=== PATIENT | male | born 1940 | race Caucasian/White ===

== ENCOUNTER 2021-07-27 00:50 | Inpatient (IN) ==
[2021-07-27 01:23] LABS: Basophils # (auto) 0.01 K/uL (0-0.2); Basophils % (auto) 0.1 %; Eosinophils # (auto) 0.06 K/uL (0-0.5); Eosinophils % (auto) 0.4 %; Hematocrit (blood only) 41.2 % (42-52); Hemoglobin 13.7 g/dL (14.0-18.0); Immature Granulocytes # (auto) 0.06 K/uL (0.00-0.02); Immature Granulocytes % (auto) 0.4 %; Lymphocytes # (auto) 2.35 K/uL (1.2-3.4); Lymphocytes % (auto) 14.2 %; Mean Corpuscular Hemoglobin 29.8 pg (25-34); Mean Corpuscular Hgb Conc 33.3 g/dL (32-36); Mean Corpuscular Volume 89.6 fL (80-100); Mean Platelet Volume 8.8 fL (7.4-10.4); Monocytes # (auto) 1.36 K/uL (0.11-0.59); Monocytes % (auto) 8.2 %; Neutrophils # (auto) 12.74 K/uL (1.4-6.5); Neutrophils % (auto) 76.7 %; Platelet Count 689 K/uL (130-400); RDW Coefficient of Variation 12.5 % (11.5-14.5); RDW Standard Deviation 40.9 fL (36.4-46.3); White Blood Count 16.58 K/uL (4.8-10.8)
[2021-07-27 01:47] LABS: Albumin Globulin Ratio 0.4 (0.9-2); Albumin Level 2.4 gm/dl (3.4-5.0); BUN Creatinine Ratio 26.2 (10-20); Bilirubin,Total 0.4 mg/dl (0.2-1); Calcium 8.8 mg/dl (8.5-10.1); Est GFR (African American) 76.8 ml/min; Est GFR (Non-African American) 66.3 ml/min; Globulin 5.4 gm/dl (2.5-4.0); Total Protein 7.8 gm/dl (6.4-8.2)
[2021-07-27] MEDS ORDERED: SODIUM CHLORIDE 0.9% 500 ML IV ONE (02:43)
[2021-07-27] MEDS ORDERED: LORazepam 0.5 MG/1 ML VIAL IV STA (02:43)
--- NOTE | 2021-07-27 03:20 | Emergency Department Note ---
Impression & Plan Partial obstruction of small intestine Admit to the [facility] ED Provider Note NAME: TERRANCE SOTO AGE: 80 SEX: M ARRIVES VIA: Ambulance INFORMANT: Patient ED PROVIDER(S): Jennifer Dickey DO CHIEF COMPLAINT: Abdominal pain and vomiting PLAN: Disposition: Admit to the [facility] Condition: Stable MEDICAL DECISION MAKING: This is an 80-year-old male patient who presents to the emergency department complaining of abdominal pain and no bowel movement over the past couple of days. The patient has not been taking his stool softeners as he normally does as he is on chronic opioids. CT scan shows evidence of a bowel obstruction. The patient did have a bowel m ovement and feels slightly better but the CT scan of the abdomen/pelvis shows some evidence of bowel edema. The patient will be evaluated by the [facility] group for inpatient care. Triage Nursing notes reviewed and agree with them. Prior medical records reviewed Vital Signs: reviewed and unremarkable Differential diagnosis: Constipation, colitis, diverticulitis, small bowel obstruction ER treatment provided: IV normal saline drip IV Ativan IV Zofran Oral hydrocodone Diagnostics interpreted by me: ECG: Normal sinus rhythm at [address] segment elevation or signs of ischemia. There is no ectopy. This is unchanged from previous EKGs Cardiac Monitoring: Normal sinus rhythm at 72 Laboratory studies: See below Imaging studies: As per stat rad: CT abdomen pelvis without contrast: The solid organs are within normal limits. No obstruction. Diverticulosis. Appendectomy, cholecystectomy. Bilateral calcified pleural plaques are noted with adjacent rounded atelectasis on the right. No fracture. There are surgical changes of interval disc spacers of L2- 3 and L3-L4. There is significant nodularity of the endplates of these levels. This may be degenerative, however cannot exclude osteomyelitis HPI: 80/M arrives for evaluation of abdominal pain and vomiting. The patient presents to the emergency department complaining of abdominal pain and vomiting. The patient describes not having his normal bowel movements over the past couple of weeks. The patient takes chronic opioid pain medication for chronic nerve pain. He states that he has not been taking his usual stool softeners as he has lost track of taking them because he has been busy. The patient has not had a bowel movement over the past couple of days and has recently started vomiting. He tried taking an enema last night and only had a small bowel movement. Patient states that he is here to get his bowels moving the right way. He states that he had to do similar thing a couple of years ago. ROS: See above HPI for pertinent positives & negatives. A total of 10 systems reviewed and were otherwise negative. PAST MEDICAL HISTORY:See Below PAST SURGICAL HISTORY:See Below FAMILY HISTORY:See Below SOCIAL HISTORY:See Below HOME MEDICATIONS:See list ALLERGIES:See list VITALS:See Below PHYSICAL EXAMINATION: HEENT: Head - normocephalic and atraumatic Pupils are equal, round, and reactive to light. Extraocular eye muscles are intact, and sclera are anicteric. Nose - moist nasal mucosa without discharge. Mouth - moist buccal mucosa. Oropharynx is nonerythematous and there is no tonsillar exudate or edema noted. Neck: Supple; no JVD, nuchal rigidity, cervical lymphadenopathy, or auscultated bruits. Heart: Regular rate and rhythm. There is a normal S1 and S2 with no murmurs, clicks, or gallops appreciated. Lungs: Clear to auscultation bilaterally with no wheezes, rales, or rhonchi. Abdomen: Soft, diffusely tender, nondistended, with good bowel sounds. There are no palpable pulsatile masses or hepatosplenomegaly. There is no guarding, rigidity, or rebound noted. Extremities: No evidence of cyanosis, clubbing, or edema. There are easily palpable peripheral pulses. Skin: warm and dry with good turgor and no rashes. ED COURSE: Times/Reassessments: 0220: Patient was evaluated in room A2. A complete history and physical was performed. An IV lock was initiated and labs were drawn as above. A twelve-lead EKG was obtained. An order was placed for continuous cardiac monitoring. The patient was in a normal sinus rhythm at a rate of 72. The patient requested IV Ativan to help him relax and also help his abdomen relax. This was given. He was also given IV Zofran along with IV normal saline solution. The patient was able to rest. He went for CT scan of the abdomen/pelvis. This was initially interpreted by stat rad. They interpreted as no obvious obstruction. However, I remain concerned about the patient's presentation. He was concerned about the possibility of an obstruction as he has had them before. I allowed the patient to stay here in the emergency department until the CT scan could be interpreted by our radiologist in the morning. I kept the patient and the abreast of the situation. The radiologist's interpreted the CT scan is a partial small bowel obstruction. At that time, the patient was kept n.p.o. and I discussed the case with the [facility] hospitalist and they will evaluate the patient for admission to the [facility]. Jennifer Dickey, Past Med/Surg History Medical History Aortic valve sclerosis Barretts esophagus CAD (coronary artery disease) NSTEMI on 06/20/11 (peak troponin of 2.7) Cardiac catheterization 06/21/11: Multivessel disease. mid LAD stenosis 40% followed by a long 70% stenosis at the bifurcation of the third diagonal vessel. The third diagonal vessel also had an ostial 70% lesion. The distal LAD towards the apex was completely occluded but filled from left to left and [id number] collaterals. A large septal branch also had a 60% proximal stenosis. The distal circumflex had a 90% long stenosis; proximally there was a 30% stenosis. The RCA had a proximal 50-60% stenosis. This was the dominant vessel. Medical management was instituted. Chronic back pain Dyslipidemia Esophageal reflux Hypertension Spinal cord stimulator status Spinal stenosis Surgical History H/O exploratory laparotomy 1980s, lysis of adhesions for SBO H/O hernia repair History of hemilaminectomy S/P appendectomy S/P cholecystectomy S/P knee surgery S/P shoulder surgery Family History Mother Coronary heart disease Social History Smoking Status: Never smoker Second Hand Exposure: No; Do You Dip or Chew Tobacco: No; Tobacco Cessation Education Requested by Patient: No Hx Alcohol Use: No Hx Substance Use: No Preferred Language: Pashto Visual Impairment: No Limitations Hearing Ability: Hard of Hearing Migrant Leader Required: No Beliefs That Will Affect Care: None marital status: Current Living Situation: Spouse current occupational status: retired Other Information That Helps Us Care for You: No Feels Safe at Home: Yes and No Is there a partner from a previous relationship who is making you feel unsafe now?: No Any Concerns about Your Family Situation: No Would You Like to Speak to Someone About Your Situation: No Safety Concerns: Feels Safe At This Time Assistive Devices: None Allergies Allergies Allergy/AdvReac Type Severity Reaction Status Date / Time iodine Allergy Intermediate ITCHY. Verified 07/27/21 01:54 SAME REACTION GLUTEN Penicillins Allergy Intermediate RASH Verified 07/27/21 01:54 gluten Allergy Mild rash Verified 07/27/21 01:54 tramadol Allergy Unknown unknown Verified 07/27/21 01:54 codeine AdvReac Mild itching Verified 07/27/21 01:54 Home Meds Home Medications Medication Instructions Recorded Confirmed gabapentin 600 mg tablet 600 mg PO .COMPLEX tab 08/06/19 07/27/21 pantoprazole 40 mg tablet,delayed 40 mg PO DAILY tab 08/06/19 07/27/21 release duloxetine 60 mg capsule,delayed 60 mg PO QAM cap 02/17/20 07/27/21 release duloxetine 30 mg capsule,delayed 30 mg PO QAM 09/04/20 07/27/21 release finasteride 5 mg tablet 5 mg PO DAILY 09/04/20 07/27/21 hydrocodone 10 mg-acetaminophen 1 tab PO Q6H PRN 12/08/20 07/27/21 325 mg tablet acetaminophen 325 mg capsule 325 - 650 mg PO QID PRN 03/16/21 07/27/21 (Tylenol) dapsone 25 mg tablet 25 mg PO DAILY PRN tab 03/16/21 07/27/21 aspirin 81 mg tablet,delayed 81 mg PO DAILY 07/27/21 07/27/21 release cyanocobalamin (vitamin B-12) 100 100 mcg PO DAILY 07/27/21 07/27/21 mcg tablet (Vitamin B-12) diclofenac sodium 1 % topical gel 4 g TOPICAL BID PRN 07/27/21 07/27/21 docusate sodium 100 mg capsule 100 mg PO BID 07/27/21 07/27/21 multivitamin 1 tab PO DAILY 07/27/21 07/27/21 red yeast rice 600 mg tablet 600 mg PO BID 07/27/21 07/27/21 tizanidine 2 mg tablet 2 mg PO BID PRN 07/27/21 07/27/21 Previous Rx's Medication Instructions Recorded nitroglycerin 0.4 mg sublingual 0.4 mg SL Q5M PRN #25 tab 02/18/20 tablet lisinopril 5 mg tablet 5 mg PO DAILY #90 tab 05/29/21 Results & Data (ED) Vital Signs Vital Signs - 24 hr 07/27/21 00:52 07/27/21 00:53 07/27/21 00:57 Temperature 36.6 C Temperature Source Oral Pulse Rate 71 70 Pulse Rate [Right Radial] 66 Pulse Rate from SpO2 Sensor 70 Pulse Rhythm [Right Radial] Regular Pulse Strength [Right Radial] Respiratory Rate 20 23 19 Respiratory Effort / Characteristics Non-Labored Respiratory Depth Normal Normal Respiratory Pattern Regular Blood Pressure 120/85 Blood Pressure [Right Radial Artery] 120/85 Blood Pressure Mean 96 Blood Pressure Mean [Right Radial Artery] 96 Blood Pressure Position [Right Radial Artery] Lying Pulse Oximetry 93 98 98 Oxygen Delivery Method Room Air Room Air Oxygen Flow Rate Sepsis Recent Fever Within 48 Hours No Sepsis New/Unexplained Change in Mental Status N/A Sepsis Action Taken by Nursing No Action Required 07/27/21 01:00 07/27/21 01:30 07/27/21 02:00 Temperature Temperature Source Pulse Rate 74 67 64 Pulse Rate [Right Radial] Pulse Rate from SpO2 Sensor 67 67 65 Pulse Rhythm [Right Radial] Pulse Strength [Right Radial] Respiratory Rate 24 18 20 Respiratory Effort / Characteristics Respiratory Depth Respiratory Pattern Blood Pressure Blood Pressure [Right Radial Artery] Blood Pressure Mean Blood Pressure Mean [Right Radial Artery] Blood Pressure Position [Right Radial Artery] Pulse Oximetry 99 94 86 L Oxygen Delivery Method Oxygen Flow Rate Sepsis Recent Fever Within 48 Hours Sepsis New/Unexplained Change in Mental Status Sepsis Action Taken by Nursing 07/27/21 02:30 07/27/21 03:00 07/27/21 03:57 Temperature Temperature Source Pulse Rate 73 70 Pulse Rate [Right Radial] 67 Pulse Rate from SpO2 Sensor 66 67 Pulse Rhythm [Right Radial] Pulse Strength [Right Radial] Normal Respiratory Rate 17 20 14 Respiratory Effort / Characteristics Non-Labored Respiratory Depth Normal Respiratory Pattern Regular Blood Pressure 120/85 Blood Pressure [Right Radial Artery] 142/70 H Blood Pressure Mean 96 Blood Pressure Mean [Right Radial Artery] 94 Blood Pressure Position [Right Radial Artery] Lying Pulse Oximetry 95 96 96 Oxygen Delivery Method Nasal Cannula Oxygen Flow Rate 2 Sepsis Recent Fever Within 48 Hours Sepsis New/Unexplained Change in Mental Status Sepsis Action Taken by Nursing 07/27/21 05:00 07/27/21 07:00 Temperature Temperature Source Pulse Rate Pulse Rate [Right Radial] 76 76 Pulse Rate from SpO2 Sensor Pulse Rhythm [Right Radial] Regular Pulse Strength [Right Radial] Normal Respiratory Rate 16 18 Respiratory Effort / Characteristics Non-Labored Spontaneous Non-Labored Respiratory Depth Normal Normal Respiratory Pattern Regular Regular Blood Pressure Blood Pressure [Right Radial Artery] 141/85 H 144/109 H Blood Pressure Mean Blood Pressure Mean [Right Radial Artery] 103 120 Blood Pressure Position [Right Radial Artery] Semi-fowlers Lying Pulse Oximetry 96 97 Oxygen Delivery Method Nasal Cannula Room Air Oxygen Flow Rate 2 Sepsis Recent Fever Within 48 Hours Sepsis New/Unexplained Change in Mental Status Sepsis Action Taken by Nursing Laboratory Data Result diagrams: 07/27/21 01:15 07/27/21 03:07 Lab Results 07/27/21 07/27/21 07/27/21 Range/Units 01:15 01:15 01:15 WBC 16.58 H (4.8-10.8) K/uL RBC 4.60 L (4.7-6.1) M/uL Hgb 13.7 L (14.0-18.0) g/dL Hct 41.2 L (42-52) % MCV 89.6 (80-100) fL MCH 29.8 (25-34) pg MCHC 33.3 (32-36) g/dL RDW Std Deviation 40.9 (36.4-46.3) fL RDW Coeff of Geraldo 12.5 (11.5-14.5) % Plt Count 689 H (130-400) K/uL MPV 8.8 (7.4-10.4) fL Immature Gran % (Auto) 0.4 % Neut % (Auto) 76.7 % Lymph % (Auto) 14.2 % Calvert % (Auto) 8.2 % Eos % (Auto) 0.4 % Baso % (Auto) 0.1 % Neut # (Auto) 12.74 H (1.4-6.5) K/uL Lymph # (Auto) 2.35 (1.2-3.4) K/uL Calvert # (Auto) 1.36 H (0.11-0.59) K/uL Eos # (Auto) 0.06 (0-0.5) K/uL Baso # (Auto) 0.01 (0-0.2) K/uL Immature Gran # (Auto) 0.06 H (0.00-0.02) K/uL Sodium 136 (136-145) mmol/L Potassium (3.5-5.1) mmol/L Chloride 99 (98-107) mmol/L Carbon Dioxide 32 (21-32) mmol/L Anion Gap 5.0 (3-11) BUN 28 H (7-18) mg/dl Creatinine 1.05 (0.6-1.4) mg/dl Est Cr Clr Drug Dosing 57.0 ml/min Est GFR ( Amer) 76.8 ml/min Est GFR (Non-Af Amer) 66.3 ml/min BUN/Creatinine Ratio 26.2 H (10-20) Glucose 200 H (70-99) mg/dl Estimat Average Glucose 180 mg/dl Hemoglobin A1c 7.9 H (4.5-5.6) % Calcium 8.8 (8.5-10.1) mg/dl Total Bilirubin 0.4 (0.2-1) mg/dl AST (15-37) U/L ALT 30 (12-78) U/L Alkaline Phosphatase 97 (45-117) U/L Total Protein 7.8 (6.4-8.2) gm/dl Albumin 2.4 L (3.4-5.0) gm/dl Globulin 5.4 H (2.5-4.0) gm/dl Albumin/Globulin Ratio 0.4 L (0.9-2) Lipase 70 L (73-393) U/L 07/27/21 Range/Units 03:07 WBC (4.8-10.8) K/uL RBC (4.7-6.1) M/uL Hgb (14.0-18.0) g/dL Hct (42-52) % MCV (80-100) fL MCH (25-34) pg MCHC (32-36) g/dL RDW Std Deviation (36.4-46.3) fL RDW Coeff of Geraldo (11.5-14.5) % Plt Count (130-400) K/uL MPV (7.4-10.4) fL Immature Gran % (Auto) % Neut % (Auto) % Lymph % (Auto) % Calvert % (Auto) % Eos % (Auto) % Baso % (Auto) % Neut # (Auto) (1.4-6.5) K/uL Lymph # (Auto) (1.2-3.4) K/uL Calvert # (Auto) (0.11-0.59) K/uL Eos # (Auto) (0-0.5) K/uL Baso # (Auto) (0-0.2) K/uL Immature Gran # (Auto) (0.00-0.02) K/uL Sodium (136-145) mmol/L Potassium 3.7 (3.5-5.1) mmol/L Chloride (98-107) mmol/L Carbon Dioxide (21-32) mmol/L Anion Gap (3-11) BUN (7-18) mg/dl Creatinine (0.6-1.4) mg/dl Est Cr Clr Drug Dosing ml/min Est GFR ( Amer) ml/min Est GFR (Non-Af Amer) ml/min BUN/Creatinine Ratio (10-20) Glucose (70-99) mg/dl Estimat Average Glucose mg/dl Hemoglobin A1c (4.5-5.6) % Calcium (8.5-10.1) mg/dl Total Bilirubin (0.2-1) mg/dl AST 12 L (15-37) U/L ALT (12-78) U/L Alkaline Phosphatase (45-117) U/L Total Protein (6.4-8.2) gm/dl Albumin (3.4-5.0) gm/dl Globulin (2.5-4.0) gm/dl Albumin/Globulin Ratio (0.9-2) Lipase (73-393) U/L Administered Medications Hydrocodone Bitart/Acetaminophen (Hydrocodone/Acetaminophen 10/325 Tab) 1 tab PO Q6H PRN PRN Reason: Pain Stop: 08/10/21 15:15 Last Admin: 07/27/21 17:51 Dose: 1 tab Documented by: [id number] Aspirin (Aspirin 81 Mg Ectab) 81 mg PO DAILY [facility] Stop: 08/27/21 08:59 Last Admin: 07/28/21 08:40 Dose: 81 mg Documented by: [id number] Duloxetine HCl (Duloxetine Hcl 60 Mg Cap) 60 mg PO QDL [facility] Stop: 08/26/21 14:59 Last Admin: 07/27/21 15:29 Dose: 60 mg Documented by: [id number] Duloxetine HCl (Duloxetine Hcl 30 Mg Cap) 30 mg PO QAM [facility] Stop: 08/27/21 08:59 Last Admin: 07/28/21 08:41 Dose: 30 mg Documented by: [id number] Finasteride (Finasteride 5 Mg Tab) 5 mg PO DAILY [facility] Stop: 08/27/21 08:59 Last Admin: 07/28/21 08:40 Dose: 5 mg Documented by: [id number] Gabapentin (Gabapentin 600 Mg Tab) 600 mg PO BID [facility] Stop: 08/26/21 20:59 Last Admin: 07/27/21 22:09 Dose: 600 mg Documented by: [id number] Gabapentin (Gabapentin 300 Mg Cap) 900 mg PO DAILY@1400 [facility] Stop: 08/26/21 14:59 Last Admin: 07/27/21 15:30 Dose: 900 mg Documented by: [id number] Ciprofloxacin (Cipro / D5w) 400 mg in 200 mls @ 100 mls/hr IV Q12H [facility]; Protocol Stop: 08/06/21 12:44 Last Infusion: 07/28/21 03:21 Dose: 0 mls/hr Documented by: [id number] Admin: 07/28/21 01:21 Dose: 100 mls/hr Documented by: [id number] Admin: 07/27/21 15:53 Dose: Not Given Documented by: [id number] Metronidazole (Flagyl) 500 mg in 100 mls @ 100 mls/hr IV Q8H [facility] Stop: 08/06/21 12:44 Last Infusion: 07/28/21 05:30 Dose: 0 mls/hr Documented by: [id number] Admin: 07/28/21 04:30 Dose: 100 mls/hr Documented by: [id number] Infusion: 07/27/21 23:09 Dose: 0 mls/hr Documented by: [id number] Admin: 07/27/21 22:09 Dose: 100 mls/hr Documented by: [id number] Admin: 07/27/21 15:53 Dose: Not Given Documented by: [id number] Potassium Chloride/Sodium Chloride (Normal Saline W/20 Meq Kcl) 20 meq in 1,000 mls @ 60 mls/hr IV .[id number] [facility] Stop: 08/26/21 19:14 Last Admin: 07/27/21 20:08 Dose: 60 mls/hr Documented by: [id number] Insulin Aspart (Insulin Aspart 100 Units/Ml 3 Ml Pen) 0 units SC Q6 [facility] Stop: 08/26/21 14:44 Last Admin: 07/28/21 06:06 Dose: Not Given Documented by: [id number] Cosigned by: [id number] Admin: 07/28/21 00:01 Dose: Not Given Documented by: [id number] Cosigned by: [id number] Admin: 07/27/21 18:00 Dose: Not Given Documented by: [id number] Pantoprazole Sodium (Pantoprazole 40 Mg Tab) 40 mg PO DAILY [facility] Stop: 08/27/21 08:59 Last Admin: 07/28/21 08:40 Dose: 40 mg Documented by: [id number] Discontinued Medications Hydrocodone Bitart/Acetaminophen (Hydrocodone/Acetaminophen 10/325 Tab) 1 tab PO NOW STA Stop: 07/27/21 06:25 Last Admin: 07/27/21 06:45 Dose: 1 tab Documented by: [id number] Sodium Chloride (Nss) 500 mls @ 999 mls/hr IV .Q31M ONE Stop: 07/27/21 03:13 Last Infusion: 07/27/21 04:00 Dose: 500 mls/hr Documented by: [id number] Admin: 07/27/21 03:03 Dose: 999 mls/hr Documented by: [id number] Sodium Chloride (Nss) 500 mls @ 125 mls/hr IV .Q4H [facility] Stop: 08/26/21 02:44 Last Admin: 07/27/21 11:57 Dose: Not Given Documented by: [id number] Admin: 07/27/21 08:52 Dose: Not Given Documented by: [id number] Infusion: 07/27/21 08:51 Dose: 0 mls/hr Documented by: [id number] Admin: 07/27/21 04:50 Dose: 125 mls/hr Documented by: [id number] Lorazepam (Ativan) 0.5 mg in 1 mls @ 1 mls/min IV NOW STA Stop: 07/27/21 02:44 Last Admin: 07/27/21 03:01 Dose: 1 mls/min Documented by: [id number] Sodium Chloride (Nss) 500 mls @ 125 mls/hr IV .Q4H [facility] Stop: 08/26/21 08:44 Last Admin: 07/27/21 15:05 Dose: Not Given Documented by: [id number] Infusion: 07/27/21 13:23 Dose: 0 mls/hr Documented by: [id number] Admin: 07/27/21 08:52 Dose: 125 mls/hr Documented by: [id number] Insulin Aspart (Insulin Aspart 100 Units/Ml 3 Ml Pen) 0 units SC ACHS [facility] Stop: 08/26/21 14:44 Last Admin: 07/27/21 16:09 Dose: Not Given Documented by: [id number] Ondansetron HCl (Ondansetron Inj 2 Mg/Ml 2 Ml Vial) 4 mg IV NOW STA Stop: 07/27/21 06:25 Last Admin: 07/27/21 06:45 Dose: 4 mg Documented by: [id number] Ondansetron HCl (Ondansetron Inj 2 Mg/Ml 2 Ml Vial) 4 mg IV NOW STA Stop: 07/27/21 12:48 Last Admin: 07/27/21 13:02 Dose: 4 mg Documented by: [id number] Ondansetron HCl (Ondansetron Inj 2 Mg/Ml 2 Ml Vial) 4 mg IV NOW STA Stop: 07/27/21 12:57 Last Admin: 07/27/21 13:02 Dose: Not Given Documented by: [id number] Discharge Plan Visit Data Chief Complaint: GI Assessment Stated Complaint: Abdominal Pain, Constipation ED Provider: Jennifer Dickey Discharge Problem: Partial obstruction of small intestine Patient Disposition: Admitted As Inpatient Discharge Instructions Interventions: ED Discharge Assessment Last Done: 07/27/21 13:15
[2021-07-27 03:37] LABS: Potassium 3.7 mmol/L (3.5-5.1)
[2021-07-27] MEDS: SODIUM CHLORIDE 0.9% 500 ML IV SCH ×5 (04:50→15:05)
[2021-07-27] MEDS ORDERED: ONDANSETRON INJ 2 MG/ML 2 ML VIAL IV STA ×3 (06:24→12:56)
[2021-07-27] MEDS ORDERED: HYDROcodone/ACETAMINOPHEN 10/325 TAB PO STA (06:24)
--- NOTE | 2021-07-27 08:24 | CT Scan Report ---
ABDOMEN AND PELVIS CT WITHOUT CONTRAST CT DOSE: 531.33 mGy.cm HISTORY: Acute generalized abdominal pain eval for partial sbo TECHNIQUE: Multiaxial CT images of the abdomen and pelvis were performed without contrast. A dose lo wering technique was utilized adhering to the principles of ALARA. COMPARISON STUDY: CT abdomen and pelvis 02/23/2013, MRI lumbar spine 05/25/2016. FINDINGS: Extensive coronary artery calcifications. Bibasilar calcified pleural plaques with round atelectasis of the right lower lobe redemonstrated. Subpleural reticulation of the lung bases compatible with fib rosis. No pneumatosis or pneumoperitoneum. The unenhanced spleen, moderately atrophic pancreas and adrenal glands are unremarkable. Cholecystect tammy. Hepatic steatosis. No evidence of cirrhosis. Mild nonspecific bilateral perinephric stranding. 1 .4 cm cyst of the superior pole left kidney. There are a few renal sinus cysts of the left kidney als o noted. No urolith or obstructive uropathy. Prostate is upper limits of normal in size. Unremarkable urinary bladder. Atherosclerosis of the aorta without aneurysm. No adenopathy. Mild nonspecific distal esophageal wall thickening with trace periesophageal fluid. Trace free fluid within the pelvis. Appendectomy. Prior ventral abdominal wall herniorrhaphy. Proximal dilated loops o f small bowel measure up to 4.2 cm transversely. A few loops of stool-filled bowel are also noted. Th ere is a focal transition point within the right paracentral anterior midabdomen on image 210 series 3 with decompressed small bowel seen distal to this area. Trace interloop edema. Several loops of sma ll bowel are noted along the anterior abdominal cavity which may be secondary to small bowel adhesion s. No abscess or perforation. Mild colonic diverticulosis. Unremarkable soft tissues. No acute fracture. A spinal stimulator device is noted with distal leads p resent within the central canal. The T9-T10. Discectomy changes at L2-L3 and L3-L4. Associated endpla te irregularity is noted at these levels which is new from the 2016 comparison. IMPRESSION: 1. Findings suggestive of at least a partial small bowel obstruction with transition point within the right paracentral anterior mid abdomen, presumably secondary to small bowel adhesions. Minimal assoc iated interloop edema with trace free fluid. This finding was called/faxed to the emergency departmen t at time of dictation. 2. No pneumatosis or pneumoperitoneum. 3. Prior ventral abdominal wall herniorrhaphy changes. 4. Mild colonic diverticulosis. 5. Hepatic steatosis. 6. 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 7. Discectomy changes at L2-L3 and L3-L4 are noted with associated endplate irregularity, likely on a degenerative basis. Discitis/osteomyelitis considered less likely. 8. Additional findings as above. ACT 112: Negative or not required by law. The above report was generated using voice recognition software. It may contain grammatical, syntax o r spelling errors. Electronically signed by: Marck Davis M.D. 07/27/2021 8:23 AM
[2021-07-27 08:44] LABS: Appearance Urine Clear (Clear); Bacteria Urine Automated Negative (Negative); Bilirubin Urine Negative (Negative); Blood Urine Negative (Negative); Color Urine Dark Yellow; Epithelial Cell Urine Auto 20-30 /lpf (0-5); Glucose Urine UA Negative (Negative); Ketones Urine Trace (Negative); Leukocyte Esterase Urine Negative (Negative); Nitrite Urine Negative (Negative); Protein Urine 1+ (Negative); RBC Urine Automated 0-4 /hpf (0-4); Specific Gravity Urine 1.021 (1.000-1.030); Urobilinogen Urine Negative (Negative); pH Urine 8.5 (4.5-7.5)
--- NOTE | 2021-07-27 10:20 | History & Physical Report ---
Date of Service July 27, 2021 Assessment & Plan (1) SBO (small bowel obstruction): Plan: -Admit to [facility] -Patient presenting from home with reports of abdominal pain and distention, nausea and vomiting -CT ABD/pelvis shows Findings suggestive of at least a partial small bowel obstruction with transition point within the right paracentral anterior mid abdomen -Likely due to previous abdominal surgeries/adhesions -Patient currently comfortable, abdominal pain controlled and no active vomiting. Hold on NG tube for now however low threshold if symptoms worsen -Lactate WNL at 1.2 -General surgery consult, case discussed with Domonique Sampson PA-C (2) Leukocytosis: (3) Thrombocytosis: Plan: -WBC 16 K, platelets 60 9K -Likely reactive to SBO, no obvious signs of infection at this time -Trend CBC (4) Hyperglycemia: Plan: -Glucose 200 on labs -Hgb A1c 6.0 03/2019 -Start conservative NovoLog protocol, check A1c (5) CAD (coronary artery disease): Plan: -Appears stable, no reports of chest pain -History of NSTEMI in 2010, cardiac cath demonstrated multivessel disease however not amendable to intervention -Continue ASA and MALDONADO inhibitor -History of statin and beta-milagro intolerance (6) Chronic back pain: Plan: -On chronic hydrocodone/acetaminophen, receives steroid injections, follows with [facility] pain management -Encourage bowel regimen while on chronic narcotics (7) Barretts esophagus: Plan: -Continue PPI (8) DVT prophylaxis: Plan: -SCDs for now Admission and Anticipated Discharge Date Admission Date: Attending Addendum: care coordinated with RANDAL jessica please refer to her notes for full details, I agree with her notes patient seen and examined, records reviewed by myself as well on exam, patient seen resting in bed, comfortable, not in distress, very pleasant States he feels improved compared to admission No abdominal pain on exam No nausea vomiting, fevers or chills, cough, shortness of breath, problems with urination No flatus or bowel movement yet no other symptoms VS noted and reviewed oriented x 3 , not in distress, speaks in sentences with no effort nor accessory muscle use normal rate, regular rhythm, no murmurs clear breath sounds bilaterally Hypoactive bowel sounds, non distended, soft, nontender no bipedal edema, erythema, warmth no neuro deficits WBC 16.5 Hg 13.7 Crea [address] abdomen and pelvis: Findings suggestive of at least a partial small bowel obstruction with transition point within the right paracentral anterior mid abdomen, presumably secondary to small bowel adhesions. Minimal associated interloop edema with trace free fluid. This finding was called/faxed to the emergency department at time of dictation. Partial small bowel obstruction, possibly secondary to adhesions Conservative management for now N.p.o., IV fluids Cipro and Flagyl for leukocytosis History of CAD No cardiac symptoms Continue aspirin other diagnoses and plan of care as per RANDAL jessica's notes Manfred Guevara MD History of Present Illness Chief Complaint: Abdominal pain, vomiting Primary Care Provider: Manav De La Vega DO 80-year-old male with PMH CAD, chronic back pain, HTN, Nash's esophagus, BPH, history of multiple abdominal surgeries, and other problems listed below who presents the ED for evaluation of abdominal pain and vomiting. Patient reports having intermittent nausea and abdominal pain for the past couple weeks. Patient notes that he is on chronic hydrocodone for management of chronic back pain and typically takes a stool softener. Patient reports that he has been very busy working on building a cabin and has gotten away from taking his stool softeners. Last evening, patient reports he developed worsening abdominal distention, mid abdominal pain, vomiting. Patient continued to not feel well and then presented to the ED for further evaluation. Patient reports having a small bowel movement yesterday and a normal bowel movement this morning. Denies hematemesis, coffee-ground emesis, bright red bleeding per rectum, dark tarry stools. Patient reports he otherwise has been feeling well recently. No chest pain or shortness of breath. Denies lightheadedness, dizziness, diaphoresis, syncopal events. No fevers or chills. Denies urinary symptoms. In the ED, CT ABD/pelvis shows signs of partial small bowel obstruction. Labs show WBC 16 K, platelets 689K, glucose 200, lactate 1.2. Patient is hemodynamically stable. He was given p.o. hydrocodone/acetaminophen, IV lorazepam 0.5 mg, IV Zofran, IVF. Allergies Allergy/AdvReac Type Severity Reaction Status Date / Time iodine Allergy Intermediate ITCHY. Verified 07/27/21 01:54 SAME REACTION GLUTEN Penicillins Allergy Intermediate RASH Verified 07/27/21 01:54 gluten Allergy Mild rash Verified 07/27/21 01:54 tramadol Allergy Unknown unknown Verified 07/27/21 01:54 codeine AdvReac Mild itching Verified 07/27/21 01:54 Home Medications Medication Instructions Recorded Confirmed Type gabapentin 600 mg tablet 600 mg PO .COMPLEX tab 08/06/19 07/27/21 History pantoprazole 40 mg tablet,delayed 40 mg PO DAILY tab 08/06/19 07/27/21 History release duloxetine 60 mg capsule,delayed 60 mg PO QAM cap 02/17/20 07/27/21 History release nitroglycerin 0.4 mg sublingual 0.4 mg SL Q5M PRN #25 tab 02/18/20 07/27/21 Rx tablet duloxetine 30 mg capsule,delayed 30 mg PO QAM 09/04/20 07/27/21 History release finasteride 5 mg tablet 5 mg PO DAILY 09/04/20 07/27/21 History hydrocodone 10 mg-acetaminophen 1 tab PO Q6H PRN 12/08/20 07/27/21 History 325 mg tablet acetaminophen 325 mg capsule 325 - 650 mg PO QID PRN 03/16/21 07/27/21 History (Tylenol) dapsone 25 mg tablet 25 mg PO DAILY PRN tab 03/16/21 07/27/21 History lisinopril 5 mg tablet 5 mg PO DAILY #90 tab 05/29/21 07/27/21 Rx aspirin 81 mg tablet,delayed 81 mg PO DAILY 07/27/21 07/27/21 History release cyanocobalamin (vitamin B-12) 100 100 mcg PO DAILY 07/27/21 07/27/21 History mcg tablet (Vitamin B-12) diclofenac sodium 1 % topical gel 4 g TOPICAL BID PRN 07/27/21 07/27/21 History docusate sodium 100 mg capsule 100 mg PO BID 07/27/21 07/27/21 History multivitamin 1 tab PO DAILY 07/27/21 07/27/21 History red yeast rice 600 mg tablet 600 mg PO BID 07/27/21 07/27/21 History tizanidine 2 mg tablet 2 mg PO BID PRN 07/27/21 07/27/21 History Past Med/Surg History Medical History Aortic valve sclerosis Barretts esophagus CAD (coronary artery disease) NSTEMI on 06/20/11 (peak troponin of 2.7) Cardiac catheterization 06/21/11: Multivessel disease. mid LAD stenosis 40% followed by a long 70% stenosis at the bifurcation of the third diagonal vessel. The third diagonal vessel also had an ostial 70% lesion. The distal LAD towards the apex was completely occluded but filled from left to left and [id number] collaterals. A large septal branch also had a 60% proximal stenosis. The distal circumflex had a 90% long stenosis; proximally there was a 30% stenosis. The RCA had a proximal 50-60% stenosis. This was the dominant vessel. Medical management was instituted. Chronic back pain Dyslipidemia Esophageal reflux Hypertension Spinal cord stimulator status Spinal stenosis Surgical History H/O exploratory laparotomy , lysis of adhesions for SBO H/O hernia repair History of hemilaminectomy S/P appendectomy S/P cholecystectomy S/P knee surgery S/P shoulder surgery Family History Mother Coronary heart disease Social History Smoking Status: Never smoker Second Hand Exposure: No; Do You Dip or Chew Tobacco: No; Tobacco Cessation Education Requested by Patient: No Hx Alcohol Use: No Hx Substance Use: No Preferred Language: Amharic Visual Impairment: No Limitations Hearing Ability: Hard of Hearing Skydiving Instructor Required: No Beliefs That Will Affect Care: None marital status: Current Living Situation: Spouse current occupational status: retired Other Information That Helps Us Care for You: No Feels Safe at Home: Yes and No Is there a partner from a previous relationship who is making you feel unsafe now?: No Any Concerns about Your Family Situation: No Would You Like to Speak to Someone About Your Situation: No Safety Concerns: Feels Safe At This Time Assistive Devices: Glasses Review of Systems Review of Systems: ROS per HPI, all other systems reviewed and negative Physical Exam Constitutional: WD/WN, vitals as above Eyes: PERRL, conjunctivae normal, anicteric sclerae ENMT: Ears: no external ear abnormality Nose: no external nose abnormality Mouth: + dry oral mucous membranes Respiratory: normal respiratory effort, lungs clear to auscultation Cardiovascular: Rate/Rhythm: regular rate and regular rhythm Vessels: normal peripheral pulses Extremities: no edema Gastrointestinal (Abdomen): normal bowel sounds, soft, nontender, no hepatosplenomegaly Several previous incisional scars noted Musculoskeletal: no cyanosis or clubbing, extremities motor strength 5/5 Skin: no rashes, warm and dry Neurologic: PERRL, EOMI, accommodation nl, no face palsy, no dysarthria Psychiatric: A+Ox3, euthymic affect Results & Data Results & Data ([facility]) Vital Signs (Past 12 Hours) Vital Signs Temp Pulse Pulse Resp BP BP Pulse Ox 07/27/21 09:00 75 16 133/88 94 07/27/21 07:00 76 18 144/109 H 97 07/27/21 05:00 76 16 141/85 H 96 07/27/21 03:57 67 14 142/70 H 96 07/27/21 03:00 70 20 120/85 96 07/27/21 02:30 73 17 95 07/27/21 02:00 64 20 86 L 07/27/21 01:30 67 18 94 07/27/21 01:00 74 24 99 07/27/21 00:57 70 19 98 07/27/21 00:53 36.6 C 71 23 120/85 98 07/27/21 00:52 66 20 120/85 93 Laboratory Results Short CBC 07/27/21 Range/Units 01:15 WBC 16.58 H (4.8-10.8) K/uL Hgb 13.7 L (14.0-18.0) g/dL Hct 41.2 L (42-52) % Plt Count 689 H (130-400) K/uL BMP 07/27/21 07/27/21 01:15 03:07 Sodium 136 Potassium 3.7 Chloride 99 Carbon Dioxide 32 BUN 28 H Creatinine 1.05 Glucose 200 H Calcium 8.8 Liver Function 07/27/21 07/27/21 Range/Units 01:15 03:07 Total Bilirubin 0.4 (0.2-1) mg/dl AST 12 L (15-37) U/L ALT 30 (12-78) U/L Alkaline Phosphatase 97 (45-117) U/L Albumin 2.4 L (3.4-5.0) gm/dl Urine 07/27/21 Range/Units Unknown Urine Color Dark Yellow Urine Appearance Clear (Clear) Urine pH 8.5 H (4.5-7.5) Ur Specific [place] 1.021 (1.000-1.030) Urine Protein 1+ H (Negative) Urine Glucose (UA) Negative (Negative) Diagnostic Findings Abdomen/Pelvis CT 07/27/21 02:[address] WITHOUT CONTRAST CT DOSE: 531.33 mGy.cm HISTORY: Acute generalized abdominal pain eval for partial sbo TECHNIQUE: Multiaxial CT images of the abdomen and pelvis were performed without contrast. A dose lowering technique was utilized adhering to the principles of ALARA. COMPARISON STUDY: CT abdomen and pelvis 02/23/2013, MRI lumbar spine 05/25/2016. FINDINGS: Extensive coronary artery calcifications. Bibasilar calcified pleural plaques with round atelectasis of the right lower lobe redemonstrated. Subpleural reticulation of the lung bases compatible with fibrosis. No pneumatosis or pneumoperitoneum. The unenhanced spleen, moderately atrophic pancreas and adrenal glands are unremarkable. Cholecystectomy. Hepatic steatosis. No evidence of cirrhosis. Mild nonspecific bilateral perinephric stranding. 1.4 cm cyst of the superior pole left kidney. There are a few renal sinus cysts of the left kidney also noted. No urolith or obstructive uropathy. Prostate is upper limits of normal in size. Unremarkable urinary bladder. Atherosclerosis of the aorta without aneurysm. No adenopathy. Mild nonspecific distal esophageal wall thickening with trace periesophageal fluid. Trace free fluid within the pelvis. Appendectomy. Prior ventral abdominal wall herniorrhaphy. Proximal dilated loops of small bowel measure up to 4.2 cm transversely. A few loops of stool-filled bowel are also noted. There is a focal transition point within the right paracentral anterior midabdomen on image 210 series 3 with decompressed small bowel seen distal to this area. Trace interloop edema. Several loops of small bowel are noted along the anterior abdominal cavity which may be secondary to small bowel adhesions. No abscess or perforation. Mild colonic diverticulosis. Unremarkable soft tissues. No acute fracture. A spinal stimulator device is noted with distal leads present within the central canal. The T9-T10. Discectomy changes at L2-L3 and L3-L4. Associated endplate irregularity is noted at these levels which is new from the 2016 comparison. IMPRESSION: 1. Findings suggestive of at least a partial small bowel obstruction with transition point within the right paracentral anterior mid abdomen, presumably secondary to small bowel adhesions. Minimal associated interloop edema with trace free fluid. This finding was called/faxed to the emergency department at time of dictation. 2. No pneumatosis or pneumoperitoneum. 3. Prior ventral abdominal wall herniorrhaphy changes. 4. Mild colonic diverticulosis. 5. Hepatic steatosis. 6. 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 7. Discectomy changes at L2-L3 and L3-L4 are noted with associated endplate irregularity, likely on a degenerative basis. Discitis/osteomyelitis considered less likely. 8. Additional findings as above. ACT 112: Negative or not required by law. The above report was generated using voice recognition software. It may contain grammatical, syntax or spelling errors. Electronically signed by: Marck Davis M.D. 07/27/2021 8:23 AM Code Status & VTE Plan Code Status Patient is a full code as per my discussion with him. VTE Prophylaxis Plan VTE Prophylaxis will be ordered: Yes
[2021-07-27 11:00] LABS: Estimated Average Glucose 180 mg/dl; Hemoglobin A1C 7.9 % (4.5-5.6)
--- NOTE | 2021-07-27 11:21 | Surgery Consultation ---
Date of Consultation July 27, 2021 Assessment & Plan (1) SBO (small bowel obstruction): pt is a 80 year-old male who presents to ER with one day history abdominal pain, passed BM this morning, no abdominal pain now, IMP: SBO Plan, no emergent surgery indication now, I agree with conservative treatment, NPO, IV fluid, IV antibiotic for high WBC, cipro + flagyl, Hold NG tube insertion now, repeat KUB and labs in morning, will F/U, History of Present Illness Reason for Consultation: SBO Requesting Physician: manav Cox Attending Physician: manav Cox History of Present Illness History of Present Illness Chief Complaint: Abdominal pain, vomiting Primary Care Provider: Manav De La Vega DO 80-year-old male with PMH CAD, chronic back pain, HTN, Nash's esophagus, BPH, history of multiple abdominal surgeries, and other problems listed below who presents the ED for evaluation of abdominal pain and vomiting. Patient reports having intermittent nausea and abdominal pain for the past couple weeks. Patient notes that he is on chronic hydrocodone for management of chronic back pain and typically takes a stool softener. Patient reports that he has been very busy working on building a cabin and has gotten away from taking his stool softeners. Last evening, patient reports he developed worsening abdominal distention, mid abdominal pain, vomiting. Patient continued to not feel well and then presented to the ED for further evaluation. Patient reports having a small bowel movement yesterday and a normal bowel movement this morning. Denies hematemesis, coffee-ground emesis, bright red bleeding per rectum, dark tarry stools. Patient reports he otherwise has been feeling well recently. No chest pain or shortness of breath. Denies lightheadedness, dizziness, diaphoresis, syncopal events. No fevers or chills. Denies urinary symptoms. In the ED, CT ABD/pelvis shows signs of partial small bowel obstruction. Labs show WBC 16 K, platelets 689K, glucose 200, lactate 1.2. Patient is hemodynamically stable. He was given p.o. hydrocodone/acetaminophen, IV lorazepam 0.5 mg, IV Zofran, IVF. I ( Zac Murphy MD, FACS ) got a call for consult SBO, I reviewed pt's H/P, labs, CT scan with pt, pt just passed BM this morning, pt do not have abdominal pain now, Allergies Allergy/AdvReac Type Severity Reaction Status Date / Time iodine Allergy Intermediate ITCHY. Verified 07/27/21 01:54 SAME REACTION GLUTEN Penicillins Allergy Intermediate RASH Verified 07/27/21 01:54 gluten Allergy Mild rash Verified 07/27/21 01:54 tramadol Allergy Unknown unknown Verified 07/27/21 01:54 codeine AdvReac Mild itching Verified 07/27/21 01:54 Home Medications Medication Instructions Recorded Confirmed Type gabapentin 600 mg tablet 600 mg PO .COMPLEX tab 08/06/19 07/27/21 Hi story pantoprazole 40 mg tablet,delayed 40 mg PO DAILY tab 08/06/19 History release duloxetine 60 mg capsule,delayed 60 mg PO QAM cap 02/17/20 1 History release nitroglycerin 0.4 mg sublingual 0.4 mg SL Q5M PRN #25 tab 02/18/20 Rx tablet duloxetine 30 mg capsule,delayed 30 mg PO QAM 09/04/20 1 History release finasteride 5 mg tablet 5 mg PO DAILY 09/04/20 07/27/21 History hydrocodone 10 mg-acetaminophen 1 tab PO Q6H PRN 12/08/20 07/27/21 History 325 mg tablet acetaminophen 325 mg capsule 325 - 650 mg PO QID PRN 03/16/21 1 History (Tylenol) dapsone 25 mg tablet 25 mg PO DAILY PRN tab 03/16/21 07/27/21 Histor y lisinopril 5 mg tablet 5 mg PO DAILY #90 tab 05/29/21 07/27/21 Rx aspirin 81 mg tablet,delayed 81 mg PO DAILY 07/27/21 07/27/21 Hi story release cyanocobalamin (vitamin B-12) 100 100 mcg PO DAILY 07/27/21 History mcg tablet (Vitamin B-12) diclofenac sodium 1 % topical gel 4 g TOPICAL BID PRN 07/27/21 History docusate sodium 100 mg capsule 100 mg PO BID 07/27/21 07/27/21 History multivitamin 1 tab PO DAILY 07/27/21 07/27/21 History red yeast rice 600 mg tablet 600 mg PO BID 07/27/21 07/27/21 Hi story tizanidine 2 mg tablet 2 mg PO BID PRN 07/27/21 07/27/21 History Past Med/Surg History Medical History Aortic valve sclerosis Barretts esophagus CAD (coronary artery disease) NSTEMI on 06/20/11 (peak troponin of 2.7) Cardiac catheterization 06/21/11: Multivessel disease. mid LAD stenosis 40% followed by a long 70% stenosis at the bifurcation of the third diagonal vessel. The third diagonal vessel also had an ostial 70% lesion. The distal LAD towards the apex was completely occluded but filled from left to left and [id number] collaterals. A large septal branch also had a 60% proximal stenosis. The distal circumflex had a 90% long stenosis; proximally there was a 30% stenosis. The RCA had a proximal 50-60% stenosis. This was the dominant vessel. Medical management was instituted.Chronic back pain Dyslipidemia Esophageal reflux Hypertension Spinal cord stimulator status Spinal stenosis Surgical History H/O exploratory laparotomy 1980s, lysis of adhesions for SBOH/O hernia repair History of hemilaminectomy S/P appendectomy S/P cholecystectomy S/P knee surgery S/P shoulder surgery Family History Mother Coronary heart disease Social History Smoking Status: Never smoker Hx Alcohol Use: No Hx Substance Use: No Preferred Language: German Visual Impairment: No Limitations Hearing Ability: Hard of Hearing Beliefs That Will Affect Care: None marital status: Current Living Situation: Spouse current occupational status: retired Feels Safe at Home: Yes Review of Systems Review of Systems: ROS per HPI, all other systems reviewed and negative Results & Data Results & Data ([facility]) Vital Signs (Past 12 Hours) Vital Signs Temp Pulse Pulse Resp BP BP Pulse Ox 07/27/21 09:00 75 16 133/88 94 07/27/21 07:00 76 18 144/109 H 97 07/27/21 05:00 76 16 141/85 H 96 07/27/21 03:57 67 14 142/70 H 96 07/27/21 03:00 70 20 120/85 96 07/27/21 02:30 73 17 95 07/27/21 02:00 64 20 86 L 07/27/21 01:30 67 18 94 07/27/21 01:00 74 24 99 07/27/21 00:57 70 19 98 07/27/21 00:53 36.6 C 71 23 120/85 98 07/27/21 00:52 66 20 120/85 93 Laboratory Results Short CBC 07/27/21 Range/Units 01:15 WBC 16.58 H (4.8-10.8) K/uL Hgb 13.7 L (14.0-18.0) g/dL Hct 41.2 L (42-52) % Plt Count 689 H (130-400) K/uL BMP 07/27/21 07/27/21 01:15 03:07 Sodium 136 Potassium 3.7 Chloride 99 Carbon Dioxide 32 BUN 28 H Creatinine 1.05 Glucose 200 H Calcium 8.8 Liver Function 07/27/21 07/27/21 Range/Units 01:15 03:07 Total Bilirubin 0.4 (0.2-1) mg/dl AST 12 LC (15-37) U/L ALT 30 (12-78) U/L Alkaline Phosphatase 97 (45-117) U/L Albumin 2.4 L (3.4-5.0) gm/dl Urine 07/27/21 Range/Units Unknown Urine Color Dark Yellow Urine Appearance Clear (Clear) Urine pH 8.5 H (4.5-7.5) Ur Specific [place] 1.021 (1.000-1.030) Urine Protein 1+ H (Negative) Urine Glucose (UA) Negative (Negative) Diagnostic Findings Abdomen/Pelvis CT 07/27/21 02:[address] WITHOUT CONTRAST CT DOSE: 531.33 mGy.cm HISTORY: Acute generalized abdominal pain eval for partial sbo TECHNIQUE: Multiaxial CT images of the abdomen and pelvis were performed without contrast. A dose lowering technique was utilized adhering to the principles of ALARA. COMPARISON STUDY: CT abdomen and pelvis 02/23/2013, MRI lumbar spine 05/25/2016. FINDINGS: Extensive coronary artery calcifications. Bibasilar calcified pleural plaques with round atelectasis of the right lower lobe redemonstrated. Subpleural reticulation of the lung bases compatible with fibrosis. No pneumatosis or pneumoperitoneum. The unenhanced spleen, moderately atrophic pancreas and adrenal glands are unremarkable. Cholecystectomy. Hepatic steatosis. No evidence of cirrhosis. Mild nonspecific bilateral perinephric stranding. 1.4 cm cyst of the superior pole le ft kidney. There are a few renal sinus cysts of the left kidney also noted. No urolith or obstructive uropathy. Prostate is upper limits of normal in size. Unremarkable urinary bladder. Atherosclerosis of the aorta without aneurysm. No adenopathy. Mild nonspecific distal esophageal wall thickening with trace periesophageal fluid. Trace free fluid within the pelvis. Appendectomy. Prior ventral abdominal wall herniorrhaphy. Proximal dilated loops of small bowel measure up to 4.2 cm transversely. A few loops of stool-filled bowel are also noted. There is a focal transition point within the right paracentral anterior midabdomen on image 210 series 3 with decompressed small bowel seen distal to this area. Trace interloop edema. Several loops of small bowel are noted along the anterior abdominal cavity which may be secondary to small bowel adhesions. No abscess or perforation. Mild colonic diverticulosis. Unremarkable soft tissues. No acute fracture. A spinal stimulator device is not ed with distal leads present within the central canal. The T9-T10. Discectomy changes at L2-L3 and L3-L4. Associated endplate irregularity is noted at these levels which is new from the 2016 comparison. IMPRESSION: 1. Findings suggestive of at least a partial small bowel obstruction with transition point within the right paracentral anterior mid abdomen, presumably secondary to small bowel adhesions. Minimal associated interloop edema with trace free fluid. This finding was called/faxed to the emergency department at time of dictation. 2. No pneumatosis or pneumoperitoneum. 3. Prior ventral abdominal wall herniorrhaphy changes. 4. Mild colonic diverticulosis. 5. Hepatic steatosis. 6. 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 7. Discectomy changes at L2-L3 and L3-L4 are noted with associated endplate irregularity, likely on a degenerative basis. Discitis/osteomyelitis considered less likely. 8. Additional findings as above. Allergies Allergy/AdvReac Type Severity Reaction Status Date / Time iodine Allergy Intermediate ITCHY. Verified 07/27/21 01:54 SAME REACTION GLUTEN Penicillins Allergy Intermediate RASH Verified 07/27/21 01:54 gluten Allergy Mild rash Verified 07/27/21 01:54 tramadol Allergy Unknown unknown Verified 07/27/21 01:54 codeine AdvReac Mild itching Verified 07/27/21 01:54 Home Medications Medication Instructions Recorded Confirmed Type gabapentin 600 mg tablet 600 mg PO .COMPLEX tab 08/06/19 07/27/21 History pantoprazole 40 mg tablet,delayed 40 mg PO DAILY tab 08/06/19 07/27/21 History release duloxetine 60 mg capsule,delayed 60 mg PO QAM cap 02/17/20 07/27/21 History release nitroglycerin 0.4 mg sublingual 0.4 mg SL Q5M PRN #25 tab 02/18/20 07/27/21 Rx tablet duloxetine 30 mg capsule,delayed 30 mg PO QAM 09/04/20 07/27/21 History release finasteride 5 mg tablet 5 mg PO DAILY 09/04/20 07/27/21 History hydrocodone 10 mg-acetaminophen 1 tab PO Q6H PRN 12/08/20 07/27/21 History 325 mg tablet acetaminophen 325 mg capsule 325 - 650 mg PO QID PRN 03/16/21 07/27/21 History (Tylenol) dapsone 25 mg tablet 25 mg PO DAILY PRN tab 03/16/21 07/27/21 History lisinopril 5 mg tablet 5 mg PO DAILY #90 tab 05/29/21 07/27/21 Rx aspirin 81 mg tablet,delayed 81 mg PO DAILY 07/27/21 07/27/21 History release cyanocobalamin (vitamin B-12) 100 100 mcg PO DAILY 07/27/21 07/27/21 History mcg tablet (Vitamin B-12) diclofenac sodium 1 % topical gel 4 g TOPICAL BID PRN 07/27/21 07/27/21 History docusate sodium 100 mg capsule 100 mg PO BID 07/27/21 07/27/21 History multivitamin 1 tab PO DAILY 07/27/21 07/27/21 History red yeast rice 600 mg tablet 600 mg PO BID 07/27/21 07/27/21 History tizanidine 2 mg tablet 2 mg PO BID PRN 07/27/21 07/27/21 History Patient History Medical History Aortic valve sclerosis Barretts esophagus CAD (coronary artery disease) NSTEMI on 06/20/11 (peak troponin of 2.7) Cardiac catheterization 06/21/11: Multivessel disease. mid LAD stenosis 40% followed by a long 70% stenosis at the bifurcation of the third diagonal vessel. The third diagonal vessel also had an ostial 70% lesion. The distal LAD towards the apex was completely occluded but filled from left to left and [id number] collaterals. A large septal branch also had a 60% proximal stenosis. The distal circumflex had a 90% long stenosis; proximally there was a 30% stenosis. The RCA had a proximal 50-60% stenosis. This was the dominant vessel. Medical management was instituted. Chronic back pain Dyslipidemia Esophageal reflux Hypertension Spinal cord stimulator status Spinal stenosis Surgical History H/O exploratory laparotomy , lysis of adhesions for SBO H/O hernia repair History of hemilaminectomy S/P appendectomy S/P cholecystectomy S/P knee surgery S/P shoulder surgery Family History Mother Coronary heart disease Social History Smoking Status: Never smoker Hx Alcohol Use: No Hx Substance Use: No Preferred Language: German Visual Impairment: No Limitations Hearing Ability: Hard of Hearing Beliefs That Will Affect Care: None marital status: Current Living Situation: Spouse current occupational status: retired Feels Safe at Home: Yes Physical Exam Constitutional: WD/WN, vitals as above Eyes: PERRL, conjunctivae normal, anicteric sclerae Neck: trachea midline, no thyromegaly Respiratory: normal respiratory effort, lungs clear to auscultation Cardiovascular: RRR, no murmur, no edema Gastrointestinal (Abdomen): soft middle line scar, no tenderness, no distend, BS + Musculoskeletal: no cyanosis or clubbing, extremities motor strength 5/5 Neurologic: patellar DTR's 2+ bilat, sensation intact Psychiatric: A+Ox3, euthymic affect Results & Data ([facility]) Vital Signs (Past 12 Hours) Vital Signs Temp Pulse Pulse Resp BP BP Pulse Ox 07/27/21 09:00 75 16 133/88 94 07/27/21 07:00 76 18 144/109 H 97 07/27/21 05:00 76 16 141/85 H 96 07/27/21 03:57 67 14 142/70 H 96 07/27/21 03:00 70 20 120/85 96 07/27/21 02:30 73 17 95 07/27/21 02:00 64 20 86 L 07/27/21 01:30 67 18 94 07/27/21 01:00 74 24 99 07/27/21 00:57 70 19 98 07/27/21 00:53 36.6 C 71 23 120/85 98 07/27/21 00:52 66 20 120/85 93 Laboratory Results Abnormal lab results 07/27/21 07/27/21 07/27/21 Range/Units 01:15 01:15 01:15 WBC 16.58 H (4.8-10.8) K/uL RBC 4.60 L (4.7-6.1) M/uL Hgb 13.7 L (14.0-18.0) g/dL Hct 41.2 L (42-52) % Plt Count 689 H (130-400) K/uL Neut # (Auto) 12.74 H (1.4-6.5) K/uL [place] # (Auto) 1.36 H (0.11-0.59) K/uL Immature Gran # (Auto) 0.06 H (0.00-0.02) K/uL BUN 28 H (7-18) mg/dl BUN/Creatinine Ratio 26.2 H (10-20) Glucose 200 H (70-99) mg/dl Hemoglobin A1c 7.9 H (4.5-5.6) % AST (15-37) U/L Albumin 2.4 L (3.4-5.0) gm/dl Globulin 5.4 H (2.5-4.0) gm/dl Albumin/Globulin Ratio 0.4 L (0.9-2) Lipase 70 L (73-393) U/L Urine pH (4.5-7.5) Urine Protein (Negative) Urine Ketones (Negative) U Hyaline Cast (Auto) (0-5) /lpf U Epithel Cells (Auto) (0-5) /lpf 07/27/21 07/27/21 Range/Units 03:07 Unknown WBC (4.8-10.8) K/uL RBC (4.7-6.1) M/uL Hgb (14.0-18.0) g/dL Hct (42-52) % Plt Count (130-400) K/uL Neut # (Auto) (1.4-6.5) K/uL [place] # (Auto) (0.11-0.59) K/uL Immature Gran # (Auto) (0.00-0.02) K/uL BUN (7-18) mg/dl BUN/Creatinine Ratio (10-20) Glucose (70-99) mg/dl Hemoglobin A1c (4.5-5.6) % AST 12 L (15-37) U/L Albumin (3.4-5.0) gm/dl Globulin (2.5-4.0) gm/dl Albumin/Globulin Ratio (0.9-2) Lipase (73-393) U/L Urine pH 8.5 H (4.5-7.5) Urine Protein 1+ H (Negative) Urine Ketones Trace H (Negative) U Hyaline Cast (Auto) 5-10 H (0-5) /lpf U Epithel Cells (Auto) 20-30 H (0-5) /lpf Diagnostic Findings ABDOMEN AND PELVIS CT WITHOUT CONTRAST CT DOSE: 531.33 mGy.cm HISTORY: Acute generalized abdominal pain eval for partial sbo TECHNIQUE: Multiaxial CT images of the abdomen and pelvis were performed without contrast. A dose lowering technique was utilized adhering to the principles of ALARA. COMPARISON STUDY: CT abdomen and pelvis 02/23/2013, MRI lumbar spine 05/25/2016. FINDINGS: Extensive coronary artery calcifications. Bibasilar calcified pleural plaques with round atelectasis of the right lower lobe redemonstrated. Subpleural reticulation of the lung bases compatible with fibrosis. No pneumatosis or pneumoperitoneum. The unenhanced spleen, moderately atrophic pancreas and adrenal glands are unremarkable. Cholecystectomy. Hepatic steatosis. No evidence of cirrhosis. Mild nonspecific bilateral perinephric stranding. 1.4 cm cyst of the superior pole left kidney. There are a few renal sinus cysts of the left kidney also noted. No urolith or obstructive uropathy. Prostate is upper limits of normal in size. Unremarkable urinary bladder. Atherosclerosis of the aorta without aneurysm. No adenopathy. Mild nonspecific distal esophageal wall thickening with trace periesophageal fluid. Trace free fluid within the pelvis. Appendectomy. Prior ventral abdominal wall herniorrhaphy. Proximal dilated loops of small bowel measure up to 4.2 cm transversely. A few loops of stool-filled bowel are also noted. There is a focal transition point within the right paracentral anterior midabdomen on image 210 series 3 with decompressed small bowel seen distal to this area. Trace interloop edema. Several loops of small bowel are noted along the anterior abdominal cavity which may be secondary to small bowel adhesions. No abscess or perforation. Mild colonic diverticulosis. Unremarkable soft tissues. No acute fracture. A spinal stimulator device is noted with distal leads present within the central canal. The T9-T10. Discectomy changes at L2-L3 and L3-L4. Associated endplate irregularity is noted at these levels which is new from the 2016 comparison.
--- NOTE | 2021-07-27 13:43 | Electrocardiogram Report ---
Test Reason : Blood Pressure : / mmHG Vent. Rate : 068 BPM Atrial Rate : 068 BPM P-R Int : 158 ms QRS Dur : 080 ms QT Int : 402 ms P-R-T Axes : 057 007 033 degrees QTc Int : 427 ms Poor data quality, interpretation may be adversely affected Sinus rhythm with Premature atrial complexes Otherwise normal ECG When compared with ECG of 23-JUN-2011 06:44, Premature atrial complexes are now Present Borderline criteria for Inferior infarct are no longer Present T wave inversion no longer evident in Inferior leads QT has lengthened Confirmed by Angel Kirby ([id number]) on 07/27/2021 1:43:42 PM Referred By: REFERRED SELF Confirmed By:Angel Kirby
[2021-07-27] MEDS ORDERED: CARBOHYDRATES FOR HYPOGLYCEMIA PO PRN (14:26)
[2021-07-27] MEDS ORDERED: metroNIDAZOLE 500 MG/100 ML BAG IV SCH (14:26)
[2021-07-27] MEDS ORDERED: GLUCOSE 40% GEL 15 GM TUBE PO PRN (14:26)
[2021-07-27] MEDS ORDERED: DEXTROSE 50% 50 ML SYRINGE IV PRN (14:26)
[2021-07-27] MEDS ORDERED: CIPROFLOXACIN / D5W 400 MG/200 ML BAG IV SCH (14:26)
[2021-07-27] MEDS ORDERED: ACETAMINOPHEN 325 MG TAB PO PRN (14:26)
[2021-07-27] MEDS ORDERED: GLUCOSE 10 TABS/TUBE PO PRN (14:26)
[2021-07-27] MEDS ORDERED: GLUCAGON FOR INJ 1 MG VIAL SQ PRN (14:26)
[2021-07-27] MEDS ORDERED: MoRPHine SULFATE 4 MG/ML 1 ML CARP\\VIAL IV PRN (14:26)
[2021-07-27] MEDS ORDERED: ONDANSETRON INJ 2 MG/ML 2 ML VIAL IV PRN (14:26)
[2021-07-27] MEDS ORDERED: INSULIN ASPART 100 UNITS/ML 3 ML PEN SC SCH (14:45)
[2021-07-27] MEDS ORDERED: HYDROcodone/ACETAMINOPHEN 10/325 TAB PO PRN (15:16)
[2021-07-27] MEDS: DULoxetine HCL 60 MG CAP PO SCH (15:29)
[2021-07-27] MEDS: GABAPENTIN 300 MG CAP PO SCH (15:30)
[2021-07-27] MEDS: metroNIDAZOLE 500 MG/100 ML BAG IV SCH ×2 (15:53→22:09)
[2021-07-27] MEDS: CIPROFLOXACIN / D5W 400 MG/200 ML BAG IV SCH (15:53)
[2021-07-27] MEDS ORDERED: Nursing to Pharmacy Communication SCH (16:00)
[2021-07-27] MEDS: INSULIN ASPART 100 UNITS/ML 3 ML PEN SC SCH (18:00)
[2021-07-27] MEDS: NSS + 20MEQ KCL 20 MEQ/1,000 ML BAG IV SCH (20:08)
[2021-07-27] MEDS: GABAPENTIN 600 MG TAB PO SCH (22:09)
[2021-07-28] MEDS: INSULIN ASPART 100 UNITS/ML 3 ML PEN SC SCH ×5 (00:01→20:47)
[2021-07-28] MEDS: CIPROFLOXACIN / D5W 400 MG/200 ML BAG IV SCH ×2 (01:21→13:43)
[2021-07-28] MEDS: metroNIDAZOLE 500 MG/100 ML BAG IV SCH ×3 (04:30→20:07)
[2021-07-28] MEDS: PANTOprazole 40 MG TAB PO SCH (08:40)
[2021-07-28] MEDS: FINASTERIDE 5 MG TAB PO SCH (08:40)
[2021-07-28] MEDS: ASPIRIN 81 MG ECTAB PO SCH (08:40)
[2021-07-28] MEDS: DULoxetine HCL 30 MG CAP PO SCH (08:41)
[2021-07-28] MEDS: GABAPENTIN 600 MG TAB PO SCH ×2 (09:36→20:07)
[2021-07-28 11:15] LABS: Hematocrit (blood only) 39.2 % (42-52); Hemoglobin 12.7 g/dL (14.0-18.0); Mean Corpuscular Hemoglobin 29.6 pg (25-34); Mean Corpuscular Hgb Conc 32.4 g/dL (32-36); Mean Corpuscular Volume 91.4 fL (80-100); Mean Platelet Volume 8.8 fL (7.4-10.4); Platelet Count 554 K/uL (130-400); RDW Coefficient of Variation 12.8 % (11.5-14.5); RDW Standard Deviation 42.8 fL (36.4-46.3); Red Blood Count 4.29 M/uL (4.7-6.1); White Blood Count 12.39 K/uL (4.8-10.8)
[2021-07-28 11:16] LABS: Basophils # (auto) 0.02 K/uL (0-0.2); Basophils % (auto) 0.2 %; Eosinophils # (auto) 0.32 K/uL (0-0.5); Eosinophils % (auto) 2.6 %; Hematocrit (blood only) 38.5 % (42-52); Hemoglobin 12.8 g/dL (14.0-18.0); Immature Granulocytes # (auto) 0.05 K/uL (0.00-0.02); Immature Granulocytes % (auto) 0.4 %; Lymphocytes # (auto) 2.18 K/uL (1.2-3.4); Mean Corpuscular Hemoglobin 30.3 pg (25-34); Mean Corpuscular Hgb Conc 33.2 g/dL (32-36); Mean Corpuscular Volume 91.2 fL (80-100); Mean Platelet Volume 8.7 fL (7.4-10.4); Monocytes # (auto) 0.97 K/uL (0.11-0.59); Neutrophils # (auto) 8.54 K/uL (1.4-6.5); Neutrophils % (auto) 70.8 %; Platelet Count 541 K/uL (130-400); RDW Coefficient of Variation 12.7 % (11.5-14.5); RDW Standard Deviation 42.5 fL (36.4-46.3); Red Blood Count 4.22 M/uL (4.7-6.1); White Blood Count 12.08 K/uL (4.8-10.8)
[2021-07-28 11:43] LABS: BUN Creatinine Ratio 29.9 (10-20); Calcium 8.5 mg/dl (8.5-10.1); Creatinine Clr Calc Pharmacy 58.6 ml/min; Est GFR (African American) 79.5 ml/min; Est GFR (Non-African American) 68.6 ml/min; Potassium 4.4 mmol/L (3.5-5.1)
[2021-07-28 11:50] LABS: Magnesium 2.2 mg/dl (1.8-2.4)
[2021-07-28] MEDS: NSS + 20MEQ KCL 20 MEQ/1,000 ML BAG IV SCH (12:34)
[2021-07-28] MEDS: DULoxetine HCL 60 MG CAP PO SCH (12:34)
[2021-07-28] MEDS: GABAPENTIN 300 MG CAP PO SCH (13:43)
[2021-07-28] MEDS ORDERED: MAGNESIUM HYDROXIDE SUSP 30 ML UDC PO ONE (14:24)
[2021-07-28] MEDS ORDERED: Nursing to Pharmacy Communication SCH (14:30)
--- NOTE | 2021-07-28 15:04 | XRay Report ---
XR KUB/Abdomen 1 view CLINICAL HISTORY: Follow-up suspected small bowel obstruction. COMPARISON STUDY: CT of the abdomen and pelvis from 07/27/2021 TECHNIQUE: Single view of the abdomen. FINDINGS: Compared to the CT examination, there is a single mildly dilated loop of small bowel presen t in the left upper quadrant which was also seen on the previous CT. No progression of small bowel ga seous distention is seen. The remaining bowel gas pattern is within normal limits without evidence for dilatation or obstructio n. There is no evidence for organomegaly or gross intra-abdominal mass. No abnormal calcifications ar e seen along the course of the urinary tracts bilaterally. No acute osseous pathology. IMPRESSION: 1.Single loop of mildly dilated air-filled small bowel are seen in left upper quadrant which is uncha nged from the CT. No progression of small bowel gaseous distention is seen. ACT 112: Negative or not required by law. Electronically signed by: Andres Sauceda M.D. 07/28/2021 3:03 PM
--- NOTE | 2021-07-28 15:37 | Hospitalist Progress Note ---
Date of Service July 28, 2021 Assessment & Plan (1) Partial obstruction of small intestine: Plan: per RANDAL jessica's notes with addendum: (1) SBO (small bowel obstruction): Plan: -Admit to [facility] -Patient presenting from home with reports of abdominal pain and distention, nausea and vomiting -CT ABD/pelvis shows Findings suggestive of at least a partial small bowel obstruction with transition point within the right paracentral anterior mid abdomen -Likely due to previous abdominal surgeries/adhesions -Patient currently comfortable, abdominal pain controlled and no active vomiting. Hold on NG tube for now however low threshold if symptoms worsen -Lactate WNL at 1.2 -General surgery consult, case discussed with Domonique Sampson PA-C 08/14/2021 Patient clinically improved No abdominal pain, nausea vomiting Afebrile Positive normoactive bowel sounds KUB showing improvement, discussed with radiologist Start clear liquid diet, MiraLAX ordered Continue gentle IV fluids, continue Cipro and Flagyl for now (2) Leukocytosis: (3) Thrombocytosis: Plan: -WBC 16 K, platelets 60 9K -Likely reactive to SBO, no obvious signs of infection at this time Afebrile, leukocytosis improving Continue Cipro and Flagyl for now Monitor closely (4) Hyperglycemia: Plan: -Glucose 200 on labs -Hgb A1c 6.0 03/2019 -Start conservative NovoLog protocol, check A1c BSG within acceptable range A1c 7.6 Continue insulin sliding scale (5) CAD (coronary artery disease): Plan: -History of NSTEMI in 2010, cardiac cath demonstrated multivessel disease koenig pino not amendable to intervention -No cardiac symptoms -Continue ASA and MALDONADO inhibitor -History of statin and beta-milagro intolerance (6) Chronic back pain: Plan: -On chronic hydrocodone/acetaminophen, receives steroid injections, follows with [facility] pain management -Encourage bowel regimen while on chronic narcotics No back pain (7) Barretts esophagus: Plan: -Continue PPI (8) DVT prophylaxis: Plan: -SCDs for now plan of care discussed with patient in detail and at length all questions answered he is understanding, agreeable, comfortable with the plan of care Admission and Anticipated Discharge Date Admission Date: July 27, 2021 Subjective Follow-up for possible bowel obstruction, etc. Seen sitting up in bed, not in distress, comfortable Patient was upset as he was not seen by the physician since this morning Apologized to patient, patient was reassured Patient reports he feels better today compared to yesterday No abdominal pain, nausea vomiting, fevers or chills No flatus or bowel movement yet but feels "rumbling" in his abdomen No headache, cough, problems with urination No other symptoms Very hungry, requesting for food Review of Systems Review of Systems: all noted and negative except for above Physical Exam Physical Exam: General- oriented x 3, not in distress, speaks in sentences with no effort or accessory muscle use Eyes- anicteric Neck- no JVD Lungs- clear breath sounds bilaterally, no rales/wheezes Heart- normal rate, regular rhythm; no murmurs Abdomen- normal bowel sounds, nondistended, soft, nontender Extremities- no pretibial edema, no calf tenderness Neuro- alert, oriented x 3; no gross focal neurologic deficits Skin- warm & dry Results & Data Results & Data ([facility]) Vital Signs (Past 12 Hours) Vital Signs Temp Pulse Resp BP Pulse Ox 07/28/21 08:31 36.6 C 54 L 16 105/68 94 all noted and reviewed including below
[2021-07-29] MEDS: CIPROFLOXACIN / D5W 400 MG/200 ML BAG IV SCH (02:37)
[2021-07-29] MEDS: NSS + 20MEQ KCL 20 MEQ/1,000 ML BAG IV SCH (05:49)
[2021-07-29] MEDS: metroNIDAZOLE 500 MG/100 ML BAG IV SCH (05:49)
[2021-07-29] MEDS ORDERED: DOCUSATE SODIUM 100 MG CAP PO SCH (09:00)
[2021-07-29] MEDS: FINASTERIDE 5 MG TAB PO SCH (09:09)
[2021-07-29] MEDS: GABAPENTIN 600 MG TAB PO SCH (09:09)
[2021-07-29] MEDS: ASPIRIN 81 MG ECTAB PO SCH (09:09)
[2021-07-29] MEDS: PANTOprazole 40 MG TAB PO SCH (09:10)
[2021-07-29] MEDS: DULoxetine HCL 30 MG CAP PO SCH (09:10)
[2021-07-29] MEDS: INSULIN ASPART 100 UNITS/ML 3 ML PEN SC SCH (10:54)
--- NOTE | 2021-07-29 16:33 | Hospitalist Progress Note ---
Date of Service July 29, 2021 Assessment & Plan (1) Partial obstruction of small intestine: Plan: per RANDAL jessica's notes with addendum: (1) partial SBO (small bowel obstruction) likely secondary to adhesions Plan: -Admit to [facility] -Patient presenting from home with reports of abdominal pain and distention, nausea and vomiting -CT ABD/pelvis shows Findings suggestive of at least a partial small bowel obstruction with transition point within the right paracentral anterior mid abdomen -Likely due to previous abdominal surgeries/adhesions -Patient currently comfortable, abdominal pain controlled and no active vomiting. Hold on NG tube for now however low threshold if symptoms worsen -Lactate WNL at 1.2 -General surgery consult, case discussed with Domonique Sampson PA-C: Recommend conservative management 07/29/2021 Clinical improved Diet slowly advanced, tolerating soft diet Positive bowel movements x2 Afebrile, no abdominal pain, nausea vomiting, fevers or chills Repeat KUB showing improvement, discussed with radiologist Discharge to home Strongly advised to adhere with Colace twice a day Follow-up with PCP in 1 week (2) Leukocytosis: (3) Thrombocytosis: Plan: -WBC 16 K, platelets 60 9K -Likely reactive to SBO, no obvious signs of infection at this time Afebrile, leukocytosis improved Blood cultures negative so far (4) Hyperglycemia, A1c 7.9 Plan: -Glucose 200 on labs A1c 7.9 Blood glucose 101, 124 Outpatient follow-up, further discussion regarding initiation of diabetic medication (5) CAD (coronary artery disease): Plan: -History of NSTEMI in 2010, cardiac cath demonstrated multivessel disease however not amendable to intervention -No cardiac symptoms -Continue ASA and MALDONADO inhibitor -History of statin and beta-milagro intolerance (6) Chronic back pain: Plan: -On chronic hydrocodone/acetaminophen, receives steroid injections, follows with [facility] pain management -Encourage bowel regimen while on chronic narcotics No back pain (7) Barretts esophagus: Plan: -Continue PPI (8) DVT prophylaxis: Plan: -SCDs plan of care discussed with patient in detail and at length all questions answered he is understanding, agreeable, comfortable with the plan of care Admission and Anticipated Discharge Date Admission Date: July 27, 2021 Subjective Follow-up for partial small bowel obstruction, etc. Seen resting in bed, comfortable, not in distress, in good spirits Tolerating clear diet well Positive flatus No abdominal pain, nausea, fevers or chills No other symptoms States he is ready for more solid food Evaluated in the afternoon Tolerating soft diet No abdominal pain or nausea, positive 2 good bowel movements No other symptoms States that he is ready and would like to be discharged today Review of Systems Review of Systems: all noted and negative except for above Physical Exam Physical Exam: General- oriented x 3, not in distress, speaks in sentences with no effort or accessory muscle use Eyes- anicteric Neck- no JVD Lungs- clear breath sounds bilaterally, no rales/wheezes Heart- normal rate, regular rhythm; no murmurs Abdomen- normal bowel sounds, nondistended, soft, nontender Extremities- no pretibial edema, no calf tenderness Neuro- alert, oriented x 3; no gross focal neurologic deficits Skin- warm & dry Results & Data Results & Data ([facility]) Vital Signs (Past 12 Hours) Vital Signs Temp Pulse Pulse Resp BP BP Pulse Ox 07/29/21 15:08 36.7 C 58 L 68 16 105/59 L 103/58 L 94 07/29/21 07:38 36.7 C 58 L 16 103/58 L 94 all noted and reviewed including below
--- NOTE | 2021-07-29 16:45 | Discharge Summary ---
Date of Service July 29, 2021 Admission HPI Per Admitting Provider 80-year-old male with PMH CAD, chronic back pain, HTN, Nash's esophagus, BPH, history of multiple abdominal surgeries, and other problems listed below who presents the ED for evaluation of abdominal pain and vomiting. Patient reports having intermittent nausea and abdominal pain for the past couple weeks. Patient notes that he is on chronic hydrocodone for management of chronic back pain and typically takes a stool softener. Patient reports that he has been very busy working on building a cabin and has gotten away from taking his stool softeners. Last evening, patient reports he developed worsening abdominal distention, mid abdominal pain, vomiting. Patient continued to not feel well and then presented to the ED for further evaluation. Patient reports having a small bowel movement yesterday and a normal bowel movement this morning. Denies hematemesis, coffee- ground emesis, bright red bleeding per rectum, dark tarry stools. Patient reports he otherwise has been feeling well recently. No chest pain or shortness of breath. Denies lightheadedness, dizziness, diaphoresis, syncopal events. No fevers or chills. Denies urinary symptoms. In the ED, CT ABD/pelvis shows signs of partial small bowel obstruction. Labs show WBC 16 K, platelets 689K, glucose 200, lactate 1.2. Patient is hemodynamically stable. He was given p.o. hydrocodone/acetaminophen, IV lorazepam 0.5 mg, IV Zofran, IVF. Admission Exam (Per Admitting) Constitutional Constitutional: WD/WN, vitals as above Eyes: PERRL, conjunctivae normal, anicteric sclerae ENMT: Ears: no external ear abnormality Nose: no external nose abnormality Mouth: + dry oral mucous membranes Respiratory: normal respiratory effort, lungs clear to auscultation Cardiovascular: Rate/Rhythm: regular rate and regular rhythm Vessels: normal peripheral pulses Extremities: no edema Gastrointestinal (Abdomen): normal bowel sounds, soft, nontender, no hepatosplenomegaly Several previous incisional scars noted Musculoskeletal: no cyanosis or clubbing, extremities motor strength 5/5 Skin: no rashes, warm and dry Neurologic: PERRL, EOMI, accommodation nl, no face palsy, no dysarthria Psychiatric: A+Ox3, euthymic affect Discharge Data Consultations 07/27/21 08:48 ED Decision to Admit Stat 07/27/21 14:26 Consult General Surgery Routine Procedures Performed ABDOMEN AND PELVIS CT WITHOUT CONTRAST CT DOSE: 531.33 mGy.cm HISTORY: Acute generalized abdominal pain eval for partial sbo TECHNIQUE: Multiaxial CT images of the abdomen and pelvis were performed without contrast. A dose lowering technique was utilized adhering to the principles of ALARA. COMPARISON STUDY: CT abdomen and pelvis 02/23/2013, MRI lumbar spine 05/25/2016. FINDINGS: Extensive coronary artery calcifications. Bibasilar calcified pleural plaques with round atelectasis of the right lower lobe redemonstrated. Subpleural reti culation of the lung bases compatible with fibrosis. No pneumatosis or pneumoperitoneum. The unenhanced spleen, moderately atrophic pancreas and adrenal glands are unremarkable. Cholecystectomy. Hepatic steatosis. No evidence of cirrhosis. Mild nonspecific bilateral perinephric stranding. 1.4 cm cyst of the superior pole left kidney. There are a few renal sinus cysts of the left kidney also noted. No urolith or obstructive uropathy. Prostate is upper limits of normal in size. Unremarkable urinary bladder. Atherosclerosis of the aorta without aneurysm. No adenopathy. Mild nonspecific distal esophageal wall thickening with trace periesophageal fluid. Trace free fluid within the pelvis. Appendectomy. Prior ventral abdominal wall herniorrhaphy. Proximal dilated loops of small bowel measure up to 4.2 cm transversely. A few loops of stool-filled bowel are also noted. There is a focal transition point within the right paracentral anterior midabdomen on image 210 series 3 with decompressed small bowel seen distal to this area. Trace interloop edema. Several loops of small bowel are noted along the anterior abdominal cavity which may be secondary to small bowel adhesions. No abscess or pe rforation. Mild colonic diverticulosis. Unremarkable soft tissues. No acute fracture. A spinal stimulator device is noted with distal leads present within the central canal. The T9-T10. Discectomy changes at L2-L3 and L3-L4. Associated endplate irregularity is noted at these levels which is new from the 2016 comparison. IMPRESSION: 1. Findings suggestive of at least a partial small bowel obstruction with transition point within the right paracentral anterior mid abdomen, presumably secondary to small bowel adhesions. Minimal associated interloop edema with trace free fluid. This finding was called/faxed to the emergency department at time of dictation. 2. No pneumatosis or pneumoperitoneum. 3. Prior ventral abdominal wall herniorrhaphy changes. 4. Mild colonic diverticulosis. 5. Hepatic steatosis. 6. 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 7. Discectomy changes at L2-L3 and L3-L4 are noted with associated endplate irregularity, likely on a degenerative basis. Discitis/osteomyelitis considered less likely. 8. Additional findings as above. ACT 112: Negative or not required by law. The above report was generated using voice recognition software. It may contain grammatical, syntax or spelling errors. Electronically signed by: Marck aDvis M.D. 07/27/2021 8:23 AM Hospital Course (1) Partial obstruction of small intestine: per RANDAL jessica's notes with addendum: (1) partial SBO (small bowel obstruction) likely secondary to adhesions Plan: -Admit to [facility] -Patient presenting from home with reports of abdominal pain and distention, nausea and vomiting -CT ABD/pelvis shows Findings suggestive of at least a partial small bowel obstruction with transition point within the right paracentral anterior mid abdomen -Likely due to previous abdominal surgeries/adhesions -Patient currently comfortable, abdominal pain controlled and no active v omiting. Hold on NG tube for now however low threshold if symptoms worsen -Lactate WNL at 1.2 -General surgery consult, case discussed with Domonique Sampson PA-C: Recommend conservative management 07/29/2021 Clinical improved Diet slowly advanced, tolerating soft diet Positive bowel movements x2 Afebrile, no abdominal pain, nausea vomiting, fevers or chills Repeat KUB showing improvement, discussed with radiologist Discharge to home Strongly advised to adhere with Colace twice a day Follow-up with PCP in 1 week (2) Leukocytosis: (3) Thrombocytosis: Plan: -WBC 16 K, platelets 60 9K -Likely reactive to SBO, no obvious signs of infection at this time Afebrile, leukocytosis improved Blood cultures negative so far (4) Hyperglycemia, A1c 7.9 Plan: -Glucose 200 on labs A1c 7.9 Blood glucose 101, 124 Outpatient follow-up, further discussion regarding initiation of diabetic medication (5) CAD (coronary artery disease): Plan: -History of NSTEMI in 2010, cardiac cath demonstrated multivessel disease however not amendable to intervention -No cardiac symptoms -Continue ASA and MALDONADO inhibitor -History of statin and beta-milagro intolerance (6) Chronic back pain: Plan: -On chronic hydrocodone/acetaminophen, receives steroid injections, follows with [facility] pain management -Encourage bowel regimen while on chronic narcotics No back pain (7) Barretts esophagus: Plan: -Continue PPI (8) DVT prophylaxis: Plan: -SCDs plan of care discussed with patient in detail and at length all questions answered he is understanding, agreeable, comfortable with the plan of care
== END 2021-07-29 15:34 | disposition home or self-care (01) | DRG 390 ==
LOC: ED 00:50 → 3N 09:00

== ENCOUNTER 2023-08-12 09:56 | Inpatient (IN) ==
--- NOTE | 2023-08-12 10:00 | Emergency Department Note ---
Impression & Plan Acute hypoxic respiratory failure, Interstitial lung disease, Multifocal pneumonia, Elevated troponin ED Provider Note NAME: TERRANCE SOTO AGE: 82 SEX: M : 1940 ARRIVES VIA: Ambulance INFORMANT: Patient, ED PROVIDER(S): Kavon Robles MD CHIEF COMPLAINT: Weakness, cough MEDICAL DECISION MAKING: Patient presents due to concern for weakness and associated cough. The patient did have an oxygen requirement sepsis protocols were initiated with IV fluids IV cefepime bio fire Xopenex treatment. Chest x-ray also obtained. Patient's blood work shows a white count of 13 with mild anemia hemoglobin 13.9 with a normal platelet count. The patient's kidney function is unremarkable. Initial lactate of 1.9. Troponin 52.5. Bio fire positive for parainfluenza 2. Patient's chest x-ray does show multifocal pneumonia. The patient has been treated with empiric cefepime. I did speak with the on-call hospitalist service as the patient did have an oxygen requirement. Patient was admitted to the medicine service. Critical Care: I have personally spent 35 minutes of critical care time in direct management of this patient. This includes bedside care, interpretation of diagnostic studies, and testing, discussion with consultants, patient, and family members, and other require inpatient management activities. This 35 minutes is in excess of all separately billable procedures. Discussion w/ other healthcare providers: Carmel Lott PA-C and Dr. Gresham [facility] inpatient medicine service Prior /Outside records reviewed: Reviewed a cardiology visit from [facility] from June 25, 2023. Patient has a known history of CAD and aortic valve disease. Also known history of interstitial lung disease and follows with [facility] pulmonology. Differential diagnosis: Infection, dehydration, metabolic abnormality, hypo/hyperglycemia, electrolyte imbalance, anemia, UTI, pneumonia, thyroid dysfunction among others were considered. Diagnostics, as interpreted by me: ECG: Sinus tachycardia, rate 110, normal intervals normal axis no ST elevations T wave inversions noted in lead III not in contiguous leads. No ST elevations. Cardiac monitoring: An order was placed for continuous cardiac monitoring. The monitor shows a rate of 105 with tachycardic and regular rhythm. Patient was placed on pulse oximetry Medical decision rules: Curb 65 score Imaging studies: I informally interpreted the patient's chest x-ray shows multifocal pneumonia with formal report to follow. HPI: Patient presents due to concern for worsening weakness and associated cough. The patient states that he has had productive sputum but primarily clear in nature. No smoking history. Patient states that his symptoms began about a week prior and have gotten progressively worse. Patient has mild shortness of breath. The patient did have COVID-pneumonia back in 2020. Patient was sent home on oxygen at that time but states that he does not use oxygen on a regular basis. Patient denies any leg swelling. Patient states that he has been drinking from out of fluids but may be not eating as much. The patient is accompanied by his daughter and states that when she called today that he hung up the phone and she was concerned. Patient did present via ambulance. Patient was noted to be 86% on room air upon arrival. PAST MEDICAL HISTORY: See Below PAST SURGICAL HISTORY: See Below SOCIAL HISTORY: See Below HOME MEDICATIONS: See Below ALLERGIES: See Below VITALS: See Below PHYSICAL EXAMINATION: GENERAL: Mildly ill in appearance but nontoxic. Nasal cannula in place. Wearing glasses EYE EXAM: Normal conjunctiva. PERRL, no anisocoria and EOM's grossly intact w/o pain. OROPHARYNX: Moist mucus membranes, grossly normal dentition. NECK: Supple, no nuchal rigidity, no adenopathy, non-tender. No signs of meningismus. FROM of the neck with good chin to chest and neck extension. No stridor. LUNGS: Rhonchi noted in the right chest. Normal chest wall mechanics. HEART: Tachycardic and regular, no MRG. ABDOMEN: Abdomen soft, non-tender, no masses, no rebound or guarding. BACK: No CVA TTP. SKIN: No rashes and no bruising. UPPER EXTREMITIES: Upper extremities are grossly normal. LOWER EXTREMITIES: Grossly normal, no edema. NEURO EXAM: A&O x3, cranial nerves II-XII grossly intact, normal speech, moves all 4 extremities. Past Med/Surg History Medical History Sacroiliitis Barretts esophagus Chronic back pain Spinal cord stimulator status Esophageal reflux Aortic valve sclerosis Hypertension Dyslipidemia CAD (coronary artery disease) NSTEMI on 06/20/11 (peak troponin of 2.7) Cardiac catheterization 06/21/11: Multivessel disease. mid LAD stenosis 40% followed by a long 70% stenosis at the bifurcation of the third diagonal vessel. The third diagonal vessel also had an ostial 70% lesion. The distal LAD towards the apex was completely occluded but filled from left to left and [id number] collaterals. A large septal branch also had a 60% proximal stenosis. The distal circumflex had a 90% long stenosis; proximally there was a 30% stenosis. The RCA had a proximal 50-60% stenosis. This was the dominant vessel. Medical management was instituted. Spinal stenosis Surgical History S/P insertion of spinal cord stimulator Dr. Arredondo - 2017 H/O lumbar discectomy L2-3, L3-4 w/ artificial discs by Dr. Huerta 11/2015 H/O exploratory laparotomy , lysis of adhesions for SBO H/O hernia repair History of hemilaminectomy S/P shoulder surgery S/P knee surgery S/P cholecystectomy S/P appendectomy Family History Mother Coronary heart disease Social History Smoking Status: Never smoker Second Hand Exposure: No; Do You Dip or Chew Tobacco: No; Hx Alcohol Use: No Hx Substance Use: No Preferred Language: Luxembourger Communication Ability: Effective Visual Impairment: No Limitations Hearing Ability: Hard of Hearing Commissary Clerk Required: No Beliefs That Will Affect Care: None marital status: / Current Living Situation: Alone current occupational status: retired Feels Safe at Home: Yes Safety Concerns: Feels Safe At This Time Assistive Devices: None Allergies Allergies Allergy/AdvReac Type Severity Reaction Status Date / Time iodine Allergy Intermediate ITCHY. Verified 08/12/23 11:46 SAME REACTION GLUTEN Penicillins Allergy Intermediate RASH Verified 08/12/23 11:46 gluten Allergy Mild rash Verified 08/12/23 11:46 tramadol Allergy Unknown unknown Verified 08/12/23 11:46 codeine AdvReac Mild itching Verified 08/12/23 11:46 Home Meds Home Medications Medication Instructions Recorded Confirmed gabapentin 600 mg tablet See Rx Instructions .Route .COMPLEX 08/06/19 08/12/23 pantoprazole 40 mg tablet,delayed 40 mg PO DAILY 08/06/19 08/12/23 release finasteride 5 mg tablet 5 mg PO DAILY 09/04/20 08/12/23 hydrocodone 10 mg-acetaminophen 1 tab PO Q6H PRN Pain 12/08/20 08/12/23 325 mg tablet acetaminophen 325 mg capsule 325 - 650 mg PO QID PRN Pain 03/16/21 08/12/23 (Tylenol) dapsone 25 mg tablet 50 mg PO DAILY PRN Itching 03/16/21 08/12/23 aspirin 81 mg tablet,delayed 81 mg PO DAILY 07/27/21 08/12/23 release cyanocobalamin (vitamin B-12) 100 100 mcg PO DAILY 07/27/21 08/12/23 mcg tablet (Vitamin B-12) diclofenac sodium 1 % topical gel 4 g topical BID PRN Pain 07/27/21 08/12/23 docusate sodium 100 mg capsule 100 mg PO BID 07/27/21 08/12/23 multivitamin 1 tab PO DAILY 07/27/21 08/12/23 red yeast rice 600 mg tablet 600 mg PO BID 07/27/21 08/12/23 tizanidine 2 mg tablet 2 mg PO BID PRN MUSCLE SPASMS 07/27/21 08/12/23 metformin 500 mg tablet,extended 500 mg PO BID 08/12/23 08/12/23 release 24 hr Previous Rx's Medication Instructions Recorded nitroglycerin 0.4 mg sublingual 0.4 mg sublingual Q5M PRN chest 02/18/20 tablet pain #25 tabs lisinopril 5 mg tablet 5 mg PO DAILY #90 tabs 05/29/21 ezetimibe 10 mg tablet (Zetia) 10 mg PO DAILY #90 tabs 08/22/21 methylprednisolone 4 mg tablets in 4 mg PO DAILY #21 ea 11/28/22 a dose pack Results & Data (ED) Vital Signs Vital Signs - 24 hr 08/12/23 09:52 08/12/23 10:23 08/12/23 10:27 Temperature 36.4 C L Temperature Source Oral Pulse Rate 84 97 H Respiratory Rate 20 Blood Pressure 107/54 L Blood Pressure Mean 71 Pulse Oximetry 86 L 96 Oxygen Delivery Method Room Air Nasal Cannula Oxygen Flow Rate 6 Sepsis Recent Fever Within 48 Hours No Sepsis New/Unexplained Change in Mental Status No Sepsis Action Taken by Nursing No Action Required Home Medications Current Medication List: was personally reviewed by [place] Laboratory Data Attestation: I reviewed the patient's lab results. 08/13/23 06:39 08/13/23 06:39 Lab Results 08/12/23 08/12/23 08/12/23 Range/Units 10:09 11:00 12:23 WBC 13.61 H (4.8-10.8) K/ul RBC 4.69 L (4.70-6.10) M/uL Hgb 13.9 L (14.0-18.0) g/dl Hct 41.0 L (42.0-52.0) % MCV 87.4 (80.0-100.0) fL MCH 29.6 (25.0-34.0) pg MCHC 33.9 (32.0-36.0) g/dL RDW Std Deviation 41.1 (36.4-46.3) fL RDW Coeff of Geraldo 12.9 (11.5-14.5) % Plt Count 294 (130-400) K/uL MPV 9.7 (9.4-12.4) fL Immature Gran % (Auto) 0.3 % Neut % (Auto) 89.3 % Lymph % (Auto) 5.3 % Mobile % (Auto) 5.0 % Eos % (Auto) 0.0 % Baso % (Auto) 0.1 % Neut # (Auto) 12.15 H (1.40-6.50) K/uL Lymph # (Auto) 0.72 L (1.20-3.40) K/uL Mobile # (Auto) 0.68 H (0.11-0.59) K/uL Eos # (Auto) 0.00 (0.00-0.50) K/uL Baso # (Auto) 0.02 (0.00-0.20) K/uL Immature Gran # (Auto) 0.04 (0.01-0.20) K/uL Sodium 135 L (136-145) mmol/L Potassium 3.9 (3.5-5.1) mmol/L Chloride 100 (98-107) mmol/L Carbon Dioxide 25 (21-32) mmol/L Anion Gap 10 (3-11) BUN 34 H (6-23) mg/dl Creatinine 1.06 (0.6-1.4) mg/dl Est Cr Clr Drug Dosing 51.1 ml/min Est GFR ( Amer) 74.9 ml/min Est GFR (Non-Af Amer) 64.6 ml/min BUN/Creatinine Ratio 32.1 H (10-20) Glucose 157 H (70-99(Fasting)) mg/dl Lactate 1.9 (0.4-2.0) mmol/L Calcium 8.2 L (8.6-10.3) mg/dl Magnesium 1.5 L (1.7-2.4) mg/dl Total Bilirubin 0.7 (0.2-1.0) mg/dl AST 17 (13-39) U/L ALT 19 (7-52) U/L Alkaline Phosphatase 73 (34-104) U/L Troponin I High Sens 52.5 H* 65.8 H* D (0-20) pg/ml Total Protein 6.3 (6.0-8.3) gm/dl Albumin 3.7 (3.4-5.0) gm/dl Globulin 2.6 (2.5-4.0) gm/dl Albumin/Globulin Ratio 1.4 (0.9-2) Procalcitonin 17.58 H (0-0.5) ng/ml Adenovirus (PCR) Not Detected (NotDetected) B. pertussis DNA (PCR) Not Detected (NotDetected) B.parapertussis DNA PCR Not Detected (NotDetected) C. pneumoniae DNA (PCR) Not Detected (NotDetected) Coronavirus OC43 (PCR) Not Detected (NotDetected) Coronavirus HKU1 (PCR) Not Detected (NotDetected) Coronavirus 229E (PCR) Not Detected (NotDetected) SARS-CoV-2 (PCR) Not Detected (NotDetected) Coronavirus NL63 (PCR) Not Detected (NotDetected) Human Metapneumovir PCR Not Detected (NotDetected) Influenza Type A (PCR) Not Detected (NotDetected) Influenza Type B (PCR) Not Detected (NotDetected) M. pneumoniae (PCR) Not Detected (NotDetected) Parainfluenza 1 (PCR) Not Detected (NotDetected) Parainfluenza 2 (PCR) DETECTED A* (NotDetected) Parainfluenza 3 (PCR) Not Detected (NotDetected) Parainfluenza 4 (PCR) Not Detected (NotDetected) RSV (PCR) Not Detected (NotDetected) Entero/Rhino (PCR) Not Detected (NotDetected) Administered Medications Hydrocodone Bitart/Acetaminophen (Hydrocodone/Acetaminophen 10/325 Tab) 1 tab PO Q6H PRN PRN Reason: Pain Stop: 08/26/23 16:13 Last Admin: 08/13/23 15:03 Dose: 1 tab Documented By: Admin: 08/13/23 08:53 Dose: 1 tab Documented By: Admin: 08/12/23 21:40 Dose: 1 tab Documented By: LUIS ARMANDO Albuterol (Albut/Ipratrop 3mg/0.5mg Neb 3 Ml Vial) 3 ml NEB QIDR [facility]; Protocol Stop: 09/11/23 16:13 Last Admin: 08/13/23 15:13 Dose: 3 ml Documented By: Admin: 08/13/23 11:20 Dose: Not Given Documented By: Admin: 08/13/23 07:03 Dose: 3 ml Documented By: Admin: 08/12/23 20:27 Dose: 3 ml Documented By: Admin: 08/12/23 16:54 Dose: 3 ml Documented By: FIDENCIO Aspirin (Aspirin 81 Mg Ectab) 81 mg PO DAILY [facility] Stop: 09/12/23 08:59 Last Admin: 08/13/23 08:56 Dose: 81 mg Documented By: GREGORIO Cyanocobalamin (Cyanocobalamin (B-12) 100 Mcg Tablet) 100 mcg PO DAILY [facility] Stop: 09/12/23 08:59 Last Admin: 08/13/23 08:57 Dose: 100 mcg Documented By: GREGORIO Dapsone (Dapsone 25 Mg Tab) 50 mg PO DAILY PRN PRN Reason: Itching Stop: 09/11/23 16:42 Last Admin: 08/13/23 08:57 Dose: 50 mg Documented By: GREGORIO Docusate Sodium (Docusate Sodium 100 Mg Cap) 100 mg PO BID [facility] Stop: 09/11/23 20:59 Last Admin: 08/13/23 08:53 Dose: 100 mg Documented By: Admin: 08/12/23 21:24 Dose: 100 mg Documented By: LUIS ARMANDO Doxycycline Hyclate (Doxycycline Hyclate 100 Mg Cap) 100 mg PO BID [facility] Stop: 08/19/23 20:59 Last Admin: 08/13/23 08:55 Dose: 100 mg Documented By: Admin: 08/12/23 21:25 Dose: 100 mg Documented By: LUIS ARMANDO Ezetimibe (Ezetimibe 10 Mg Tab) 10 mg PO DAILY [facility] Stop: 09/12/23 08:59 Last Admin: 08/13/23 08:57 Dose: 10 mg Documented By: GREGORIO Enoxaparin Sodium (Enoxaparin Inj 40 Mg/0.4 Ml Syr) 40 mg SQ Q24H [facility] Stop: 09/11/23 17:59 Last Admin: 08/12/23 18:08 Dose: 40 mg Documented By: JUDITH Gabapentin (Gabapentin 600 Mg Tab) 600 mg PO BID [facility] Stop: 09/11/23 20:59 Last Admin: 08/13/23 08:55 Dose: 600 mg Documented By: Admin: 08/12/23 21:25 Dose: 600 mg Documented By: LUIS ARMANDO Gabapentin (Gabapentin 600 Mg Tab) 900 mg PO DAILY@1200 [facility] Stop: 09/12/23 11:59 Last Admin: 08/13/23 14:06 Dose: 900 mg Documented By: GREGORIO Guaifenesin (Guaifenesin 600 Mg Tabcr) 1,200 mg PO Q12 [facility] Stop: 09/11/23 20:59 Last Admin: 08/13/23 08:58 Dose: 1,200 mg Documented By: Admin: 08/12/23 21:51 Dose: 1,200 mg Documented By: LUIS ARMANDO Cefepime HCl 2,000 mg/ Syringe 20 mls @ 5 mls/min IV Q12H [facility]; Protocol Stop: 08/19/23 22:59 Last Admin: 08/13/23 14:05 Dose: 5 mls/min Documented By: Admin: 08/13/23 00:48 Dose: 5 mls/min Documented By: LUIS Sodium Chloride (Nss) 1,000 mls @ 80 mls/hr IV .[id number] [facility] Stop: 09/11/23 16:13 Last Admin: 08/12/23 23:32 Dose: 80 mls/hr Documented By: Infusion: 08/12/23 23:32 Dose: Infused Documented By: Admin: 08/12/23 17:11 Dose: 80 mls/hr Documented By: JULIETA Insulin Aspart (Insulin Aspart Per Unit Charge) 0 units SC ACHS [facility] Stop: 09/11/23 16:29 Last Admin: 08/13/23 14:06 Dose: Not Given Documented By: Admin: 08/13/23 08:54 Dose: 1 units Documented By: MTP Co-signed By: DEANNA Admin: 08/12/23 21:27 Dose: 1 units Documented By: LUIS ARMANDO Co-signed By: JASSI Admin: 08/12/23 17:18 Dose: 1 units Documented By: JULIETA Co-signed By: MADELYN Lisinopril (Lisinopril 5 Mg Tab) 5 mg PO DAILY [facility] Stop: 09/12/23 08:59 Last Admin: 08/13/23 08:56 Dose: 5 mg Documented By: GREGORIO Ondansetron HCl (Ondansetron 4 Mg Od Tab) 4 mg PO Q8H PRN PRN Reason: Nausea And Vomiting Stop: 09/11/23 23:50 Last Admin: 08/13/23 00:13 Dose: 4 mg Documented By: LUIS Pantoprazole Sodium (Pantoprazole 40 Mg Tab) 40 mg PO DAILY [facility] Stop: 09/12/23 08:59 Last Admin: 08/13/23 08:54 Dose: 40 mg Documented By: GREGORIO Tizanidine HCl (Tizanidine Hcl 4 Mg Tablet) 2 mg PO BID PRN PRN Reason: MUSCLE SPASMS Stop: 09/11/23 16:13 Last Admin: 08/13/23 08:56 Dose: 2 mg Documented By: GREGORIO Discontinued Medications Hydrocodone Bitart/Acetaminophen (Hydrocodone/Acetaminophen 10/325 Tab) 1 tab PO ONE ONE Stop: 08/12/23 14:35 Last Admin: 08/12/23 14:42 Dose: 1 tab Documented By: JUDITH Diphenhydramine HCl (Diphenhydramine Capsule 25 Mg Cap) 25 mg PO NOW ONE Stop: 08/12/23 22:05 Last Admin: 08/13/23 00:48 Dose: 25 mg Documented By: LUIS Sodium Chloride (Nss) 1,000 mls @ 999 mls/hr IV .Q1H1M [facility] Stop: 08/12/23 12:30 Last Infusion: 08/12/23 14:02 Dose: Infused Documented By: Admin: 08/12/23 12:33 Dose: 999 mls/hr Documented By: Infusion: 08/12/23 11:59 Dose: Infused Documented By: Admin: 08/12/23 10:50 Dose: 999 mls/hr Documented By: HS Cefepime HCl (Maxipime) 2,000 mg in 20 mls @ 5 mls/min IV NOW STA; Protocol Stop: 08/12/23 10:26 Last Admin: 08/12/23 11:09 Dose: 5 mls/min Documented By: HS Magnesium Sulfate/Dextrose (Magnesium Sulfate / D5w) 1 gm in 100 mls @ 50 mls/hr IV Q2H [facility] Stop: 08/12/23 18:14 Last Infusion: 08/12/23 18:15 Dose: Infused Documented By: Admin: 08/12/23 15:34 Dose: 50 mls/hr Documented By: Infusion: 08/12/23 15:34 Dose: Infused Documented By: Admin: 08/12/23 14:29 Dose: 50 mls/hr Documented By: JUDITH Vancomycin HCl 1,750 mg/ (Sodium Chloride) 535 mls @ 200 mls/hr IV 1645 ONE Stop: 08/12/23 19:25 Last Admin: 08/12/23 17:36 Dose: Not Given Documented By: JUDITH Levalbuterol HCl (Levalbuterol 1.25 Mg/3 Ml Neb) 1.25 mg NEB NOW STA Stop: 08/12/23 10:24 Last Admin: 08/12/23 11:09 Dose: 1.25 mg Documented By: HS Imaging Data Radiologist's Impression: Chest X-Ray 08/12/23 10:23 XR chest 1V portable CLINICAL HISTORY: Sepsis. COMPARISON STUDY: Chest radiograph June 20, 2011. FINDINGS: Lung volumes are mildly diminished. There is no pneumothorax or pleural effusion. Cardiomegaly is unchanged. There is mild interstitial thickening. Multifocal airspace opacities are noted, including bibasilar opacities and a right midlung airspace opacity. IMPRESSION: Multifocal airspace opacities and interstitial thickening. The findings favor multifocal pneumonia. Pulmonary edema could appear similar. Radiographic follow-up to ensure resolution is recommended. ACT 112: Negative or not required by law. Electronically signed by: Neville Fall M.D. 08/12/2023 11:38 AM Discharge Plan Visit Data Chief Complaint: Weakness ED Provider: Kavon Robles Discharge Problem: Acute hypoxic respiratory failure, Interstitial lung disease, Multifocal pneumonia, Elevated troponin Patient Disposition: Admitted As Inpatient Discharge Instructions Interventions: ED Discharge Assessment Last Done: 08/12/23 16:15
[2023-08-12] MEDS ORDERED: CEFEPIME 2,000 MG/20 ML VIAL IV STA (10:23)
[2023-08-12] MEDS ORDERED: LEVALBUTEROL 1.25 MG/3 ML NEB NEB STA (10:23)
[2023-08-12] MEDS: SODIUM CHLORIDE 0.9% 1,000 ML IV SCH ×4 (10:50→23:32)
[2023-08-12 11:07] LABS: Basophils # (auto) 0.02 K/uL (0.00-0.20); Basophils % (auto) 0.1 %; Hemoglobin 13.9 g/dl (14.0-18.0); Immature Granulocytes # (auto) 0.04 K/uL (0.01-0.20); Immature Granulocytes % (auto) 0.3 %; Lymphocytes # (auto) 0.72 K/uL (1.20-3.40); Lymphocytes % (auto) 5.3 %; Mean Corpuscular Hemoglobin 29.6 pg (25.0-34.0); Mean Corpuscular Hgb Conc 33.9 g/dL (32.0-36.0); Mean Corpuscular Volume 87.4 fL (80.0-100.0); Mean Platelet Volume 9.7 fL (9.4-12.4); Monocytes # (auto) 0.68 K/uL (0.11-0.59); Neutrophils # (auto) 12.15 K/uL (1.40-6.50); Neutrophils % (auto) 89.3 %; Platelet Count 294 K/uL (130-400); RDW Coefficient of Variation 12.9 % (11.5-14.5); RDW Standard Deviation 41.1 fL (36.4-46.3); Red Blood Count 4.69 M/uL (4.70-6.10); White Blood Count 13.61 K/ul (4.8-10.8)
[2023-08-12 11:13] LABS: Magnesium 1.5 mg/dl (1.7-2.4)
[2023-08-12 11:23] LABS: Troponin I High Sensitivity 52.5 pg/ml (0-20)
--- NOTE | 2023-08-12 11:39 | XRay Report ---
XR chest 1V portable CLINICAL HISTORY: Sepsis. COMPARISON STUDY: Chest radiograph June 20, 2011. FINDINGS: Lung volumes are mildly diminished. There is no pneumothorax or pleural effusion. Cardiomeg ev is unchanged. There is mild interstitial thickening. Multifocal airspace opacities are noted, inc luding bibasilar opacities and a right midlung airspace opacity. IMPRESSION: Multifocal airspace opacities and interstitial thickening. The findings favor multifocal pneumonia. Pulmonary edema could appear similar. Radiographic follow-up to ensure resolution is griselda mmended. ACT 112: Negative or not required by law. Electronically signed by: Neville Fall M.D. 08/12/2023 11:38 AM
[2023-08-12 11:56] LABS: Adenovirus PCR Not Detected (NotDetected); Bordetella parapertussis PCR Not Detected (NotDetected); Bordetella pertussis PCR Not Detected (NotDetected); Chlamydia pneumoniae PCR Not Detected (NotDetected); Coronavirus 229E PCR Not Detected (NotDetected); Coronavirus CoV-2 (COVID19)PCR Not Detected (NotDetected); Coronavirus HKU1 PCR Not Detected (NotDetected); Coronavirus NL63 PCR Not Detected (NotDetected); Coronavirus OC43PCR Not Detected (NotDetected); Human Metapneumovirus PCR Not Detected (NotDetected); Influenza A PCR Not Detected (NotDetected); Influenza B PCR Not Detected (NotDetected); Mycoplasma pneumoniae PCR Not Detected (NotDetected); Parainfluenza Virus 1 PCR Not Detected (NotDetected); Parainfluenza Virus 3 PCR Not Detected (NotDetected); Parainfluenza Virus 4 PCR Not Detected (NotDetected); Respiratory Syncytial VirusPCR Not Detected (NotDetected); Rhinovirus/Enterovirus PCR Not Detected (NotDetected)
[2023-08-12 12:02] LABS: Parainfluenza Virus 2 PCR DETECTED (NotDetected)
[2023-08-12 12:26] LABS: Albumin Globulin Ratio 1.4 (0.9-2); Albumin Level 3.7 gm/dl (3.4-5.0); BUN Creatinine Ratio 32.1 (10-20); Bilirubin,Total 0.7 mg/dl (0.2-1.0); Calcium 8.2 mg/dl (8.6-10.3); Creatinine Clr Calc Pharmacy 51.1 ml/min; Est GFR (African American) 74.9 ml/min; Est GFR (Non-African American) 64.6 ml/min; Globulin 2.6 gm/dl (2.5-4.0); Potassium 3.9 mmol/L (3.5-5.1); Total Protein 6.3 gm/dl (6.0-8.3)
[2023-08-12 13:35] LABS: Appearance Urine Clear (Clear); Bacteria Urine Automated Negative (Negative); Bilirubin Urine Negative (Negative); Blood Urine Negative (Negative); Color Urine Yellow; Glucose Urine UA Negative (Negative); Ketones Urine Trace (Negative); Leukocyte Esterase Urine Negative (Negative); Nitrite Urine Negative (Negative); Protein Urine Trace (Negative); RBC Urine Automated 0-4 /hpf (0-4); Specific Gravity Urine 1.024 (1.000-1.030); Urobilinogen Urine Negative (Negative); pH Urine 5.5 (4.5-7.5)
--- OUTSIDE RECORDS SUMMARY | 2023-08-12 13:42 | External Medical Summary | Summary of Care ---
Author Name Unknown Organization [facility] Address [address] [facility] [address] Phone [phone] Care Team Providers Care Property Handler Name Role Phone Manav De La Vega Primary Care Provider Reason for Visit * Auth/Cert Specialty Diagnoses / Procedures Referred By Josh t Referred To Contact Diagnoses Cervical radiculitis Cervical radiculitis [M54.12] Procedures INJECT DX/THER SUBSTANCE INTERLAMINAR CERVICAL/THORACIC W IMAGE GUIDE INJECTION SPINE LUMBAR CERVICAL OR THORACIC Referral ID Status Reason Start Date Expiration Date Visits Re quested Visits Authorized [id number] Encounter Details Date Type Department Care Team (Latest Contact Info) Description 08/04/2023 12:21 PM EST - 08/04/2023 2:19 PM EST Hospital Encounter OR [facility], Operating Room [facility] [address] [place] [phone] Kevon Vela DO [address] [place] [phone] Discharge Disposition: Home - Self Care Allergies Active Allergy Reactions Criticality Noted Date Comments Codeine Itching 05/20/2012 adverse reactions In large amounts only Gluten Itching 05/29/2005 Breaking out in blisters Gluten Meal Low 11/28/2022 Other reaction(s): rash Iodine Itching 02/28/2011 oral Atorvastatin Calcium Muscle pain 02/21/2014 Meloxicam Renal complications Medium 09/24/2017 Penicillins Rash 08/16/2002 Tramadol Hcl 08/07/2011 Bad stomach problems documented as of this encounter (statuses as of 08/05/2023) Medications Medication Sig Dispensed Refills Start Date End Date Status MULTIVITAMINS PO CAPS 1 daily 0 Active TYLENOL 325 MG PO TABS Take 2 Tablets by mouth every 6 hours as needed. 0 Active Red Yeast Rice 600 MG TABS Tablet Take 1 Tablet by mouth in the morning and 1 Tablet before bedtime. 0 Active NITROSTAT 0.4 MG SUBL As needed 0 05/14/2016 Active CYANOCOBALAMIN (VITAMIN B-12) 100 MCG Tablet Take 1 Tablet by mouth in the morning. 0 Active Diclofenac Sodium (VOLTAREN) 1 % gel Place 4 g topically on the skin 2 times a day. To affected area as directed. 100 g 6 07/07/2019 Active aspirin enteric coated 81 MG TBEC Take 1 Tablet by mouth in the morning. 0 Active Polyethylene Glycol 3350 17 GM/SCOOP Oral Powder (MiraLax) Take 17 g by mouth daily as needed for Constipation. 255 g 0 08/06/2021 Active Ezetimibe 10 MG Oral Tablet (Zetia) Take 1 Tablet by mouth in the morning. 0 08/23/2021 Active CPAP every night at bedtime . 0 Active Sennosides 8.6 MG Oral Tablet (Senokot) Take by mouth 1 Tablet in the morning. For constipation. 15 Tablet 0 02/04/2022 Active Lisinopril 5 MG Oral Tablet (Prinivil)Indicatio ns:HTN, goal below 140/90 TAKE 1 TABLET BY MOUTH IN THE EVENING. 90 Tablet 3 08/02/2022 08/21/2023 Active Pantoprazole Sodium 40 MG Oral Tablet Delayed Release (Protonix)Indicatio ns:High grade dysplasia of Nash's epithelium Take 1 Tablet by mouth in the morning. 90 Tablet 3 09/24/2022 Active Sildenafil Citrate 50 MG Oral TabletIndications:C ombined arterial insufficiency and corporo-venous occlusive erectile dysfunction Take 1/2 to 1 tablet by mouth 30 minutes prior to intercourse as needed for erectile dysfunction. 30 Tablet 2 10/14/2022 Active Finasteride 5 MG Oral Tablet (Proscar)Indication s:BPH with obstruction/lower urinary tract symptoms TAKE ONE TABLET BY MOUTH DAILY 90 Tablet 3 11/21/2022 11/21/2023 Active Gabapentin 600 MG Oral Tablet (Neurontin)Indicati ons:Lumbar radiculitis TAKE 1 TABLET BY MOUTH IN THE MORNING, TAKE 1 AND 1/2 TABLETS AT NOON AND TAKE 1 TABLET IN THE EVENING 315 Tablet 3 11/21/2022 11/21/2023 Active tiZANidine HCl 2 MG Oral Tablet (Zanaflex)Indicatio ns:Lumbar radiculopathy Take 1 Tablet by mouth 2 times a day as needed. 90 Tablet 1 11/21/2022 Active Ezetimibe 10 MG Oral Tablet (Zetia) TAKE ONE TABLET (10MG) BY MOUTH DAILY 90 Tablet 1 01/15/2023 Active predniSONE 50 MG Oral Tablet (Deltasone) Take 1 tablet by mouth 13 hours prior and 1 tablet 1 hour prior to scheduled procedure. Take with food and water. 2 Tablet 0 04/18/2023 Active metFORMIN HCl ER 500 MG Oral Tablet Extended Release 24 Hour (Glucophage XR)Indications:Type 2 diabetes mellitus without complication, without long-term current use of insulin (HCC) TAKE ONE TABLET BY MOUTH TWICE DAILY WITH MEALS 180 Tablet 1 04/23/2023 Active Albuterol Sulfate HFA 108 (90 Base) MCG/ACT Inhalation Aerosol Solution INHALE 2 PUFFS BY MOUTH 4 TIMES DAILY 18 g 1 05/02/2023 05/01/2024 Active HYDROcodone-Acetami nophen 10-325 MG Oral TabletIndications:L umbar radiculitis Take 1 Tablet by mouth every 6 hours as needed for Other (pain). 120 Tablet 0 08/04/2023 Active documented as of this encounter (statuses as of 08/05/2023) Active Problems Problem Noted Date Diagnosed Date 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 11/21/2022 Atherosclerosis of [place] ronary artery without angina pectoris 11/22/2021 Diabetes mellitus without complication 2 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 22 ILD (interstitial lung disease) 09/27/2021 Atherosclerosis of aorta 08/02/2021 Hyperlipidemia, unspecified 12/15/2019 Primary osteoarthritis of both first carpometaca rpal joints 05/11/2019 Prediabetes 04/26/2019 Overview: Per Prediabetes protocol History of colon polyps 12/15/2018 Chronic pain 06/29/2018 HTN, goal below 140/90 04/16/2018 Systolic ejection murmur 04/16/2018 BPH without obstruction/lower urinary tract symp toms 04/16/2018 Controlled substance agreement signed 04/16/2018 S/P lumbar fusion 12/10/2016 Primary osteoarthritis of left knee 07/03/2016 S/P lumbar microdiscectomy 12/28/2015 Lumbar radiculitis 12/13/2015 Osteoarthrosis, localized, primary, involving lo wer leg 03/30/2015 Overview: ICD-10 update of inactive term ICD-10 update of inactive term Statin intolerance 04/27/2014 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 Information booklet given to patient. documented as of this encounter (statuses as of 08/05/2023) Resolved Problems Problem Noted Date Diagnosed Date Resolved Date Ileus, postoperative 02/08/2022 023 Pelvic abscess in male 02/08/202205/01 Infected hernioplasty mesh 02/04/2022 0 05/01/2023 Protein-calorie malnutrition 11/22/2021 05/01/2023 Acute respiratory failure due to COVID-19 09/27/2021 01/10/2022 SBO (small bowel obstruction) 08/05/2021 05/01/2023 HTN, goal below 130/80 04/27/201404/16 BENIGN NEOPLASM LG BOWEL 08/14/200610/2018 Overview: Colonoscopy 08/04/06--adenomatous--repeat 5 years Other ventral hernia without mention of obstruction or gangrene 08/16/2002 12/15/2018 documented as of this encounter (statuses as of 08/05/2023) Immunizations Name Administration Dates Next Due COVID-19 mRNA, LNP-s, No Pre serve, 2-Dose Series ([employer]) 12/07/2020,11/16/2020 COVID-19, LNP-s, No Preserve , Justice-sucrose, Ages 12+ (Pfizer) 01/04/2022 Covid-19, Mrna, Lnp-s, Pf, B ivalent, 30 Mcg, IM, 12 yrs and above (Pfizer) 10/11/2022 Pneumococcal Conjugate Vacc, 13 Valent (Prevnar) 09/29/2012 Pneumococcal Polysaccharide PPV23 (Pneumovax) 06/07/2015 SEASONAL INFLUENZA, PF, 6 M & Above, IM , (FLULAVAL or FLUZONE) 06/29/2018 Season Influenza, Cell Culte r, 18+ Yrs, With Preserv (Flucelvax) 06/07/2015 Season Influenza, Quad, PF, Adjuvanted, 65+ Yrs, IM (FLUAD) 07/31/2020 Seasonal Influenza, Quadriva lent Hd (Fluzone Hd) 07/21/2023,07/16/2022,05/29/2021 Seasonal Influenza, Quadriva lent, No Preserve, IM 05/22/2017,08/07/2016 Seasonal Influenza, Split, I IV3, With Preserve, Inj 06/22/2014,07/16/2013,09/21/2012 Seasonal Influenza, Trivalen t, Adjuvanted, 65+ yrs 06/04/2019 TDAP (age 11 and older)(Adacel) 10/05/2012 Varicella Zoster Vaccine (Adult) 10/28/2011 Zoster Vaccine Recombinant (Shingrix) 10/20/2020 ,08/18/2020 documented as of this encounter Social History Tobacco Use Types Packs/Day Years Used Date Smoking Tobacco: Never Smokeless Tobacco: Never Alcohol Use Standard Drinks/Week Comments No 0 (1 standard drink = 0.6 oz pur e alcohol) PHQ-2 Answer Date Recorded PHQ Adult Total Score 0 08/30/2021 Hunger Vital Sign Answer Date Recorded Worried About Running Out of Food in the Last Ye ar Never true 07/07/2019 Ran Out of Food in the Last Year Never true 07/07/2019 Sex and Gender Information Value Date Recorded Sex Assigned at Male 12/15/2019 2:37 PM EDT Gender Identity Male 12/15/2019 2:37 PM EDT Sexual Orientation Straight 12/15/2019 2: 37 PM EDT Job Start Date Occupation Industry Not on file Not on file Not on file documented as of this encounter Last Filed Vital Signs Vital Sign Reading Time Taken Comments Blood Pressure 147/85 08/04/2023 2:00 PM EST Pulse 80 08/04/2023 2:00 PM EST Temperature 36.3 C (97.3 F) 08/04/2023 1:06 PM ES T Respiratory Rate 14 08/04/2023 2:00 PM EST Oxygen Saturation 96% 08/04/2023 2:00 PM EST Inhaled Oxygen Concentration - - Weight - - Height - - Body Mass Index - - documented in this encounter Functional Status Functional Status Response Date of Assess ment Are you deaf or do you have serious difficulty h earing? No 02/08/2022 Are you blind or do you have serious difficulty seeing, even when wearing glasses? No 02/08/2022 Do you have serious difficul ty walking or climbing stairs? (5 years old or older) No 02/08/2022 Do you have difficulty dress ing or bathing? (5 years old or older) No 02/08/2022 Because of a physical, menta l, or emotional condition, do you have difficulty doing errands alone such as visiting a doctor s office or shopping? (15 years old or older) No 02/09/20 Cognitive Status Response Date of Assessm ent Because of a physical, menta l, or emotional condition, do you have serious difficulty concentrating, remembering, or making decisions? (5 years old or older) No 02/08/2022 documented as of this encounter Discharge Instructions * Discharge Instr - AVS* Kevon Vela DO - 08/04/2023 2:14 PM EST [facility] [address] [facility], [place] [address] Discharge Date: 08/04/2023 You may call [facility] at [phone] during business hours. For after-hours emergencies call 911. Your attending physician at the time of your discharge was: [facility] Vela DO [address] [facility] [facility] [place] [address] The information below provides you with the instructions and the list of medications you need to betaking following discharge from the hospital. If you have any questions, please ask before leaving.Please carry this letter with you when you see your doctor in the clinic. Diet: Resume your normal diet If you are diabetic, follow your blood sugars closely for next 2-3 days as they are likely to be elevated. If you are having difficulty controlling your blood sugars call your family doctor or the physician that treats your diabetes. Activity: Do not engage in strenuous activity today Resume your normal activities tomorrow Do not soak in water for 24 hours. No swimming, hot tub or bath but showering is allowed. Do not use heat on the injection site for 24 hours. If uncomfortable ice may be helpful. Some injections may make your arms or legs weak for a few hours. Be extremely careful when walking or changing positions that you do not fall. Have someone assist you for the next 6 hours. If weakness or numbness becomes progressive CALL IMMEDIATELY or GO TO THE NEAREST EMERGENCY ROOM Keep a diary of your pain until seen in the office to help us determine how effective the injectionwas Do not restart physical therapy or chiropractic manipulation until 48 hours after your injection Call : If weakness or numbness suddenly becomes worse or become progressive If the injection site becomes red, swollen, warm to the touch, begins to bleed or drain fluid, or is excessively painful. If you have any questions Medications: Resume all the medications you were taking prior to your injection. Resume your anticoagulants tomorrow unless otherwise instructed by your family physician, manager treasury or the anticoagulation clinic. Additional Instructions: None Driving: You may resume driving in 12-24 hours if n o weakness is noted Date you may return to work or school: N/A Follow Up: Follow-up with Dr. Vela or Eva Heart PA-C in 4-6 weeks in-office or can schedule postponed cervical epidural steroid injection for 6-8 weeks. documented in this encounter H&P Notes * Kevon Vela DO - 08/04/2023 1:13 PM EST Interventional Pain H&P Subjective: History of Present Illness: Terrance Levy is a 82 year old year-old male with a past medical history significant for lumbosacral spondylosis presenting for right-sided L4/5 and L5/S1 to improve his pain and function. He was originally planned for [facility] today, but upon review of his recent record and upon review of his presentation today, it does appear that he has significant right lower back axial pain with referral to the right anterior thigh. We had a long discussion and have opted to do the right thing and inject hislower back at this time which has severe pain. ASA 3 AW nml Review of Systems: A focused 12-pt ROS were of reviewed with the patient including difficulty with sleep, snoring, aspiration history, dysphagia, stomach pain, nausea and vomiting, severe headaches, confusion, open skin lesions or wounds, chest pain, shortness of breath, excessive thirst, somnolence, dysuria, incomplete bladder emptying, easy bruising, recent clotting problems or bleeding, depression or rushed thoughts unless noted previously. Review of patient's allergies indicates: Allergen Reactions Meloxicam Renal complications Codeine Itching adverse reactions In large amounts only Gluten Itching Breaking out in blisters Iodine Itching oral Lipitor [Atorvastatin Calcium] Muscle pain Penicillins Rash Ultram [Tramadol Hcl] Bad stomach problems Gluten Meal Other reaction(s): rash Medications, Past Medical History, Past Surgical History reviewed and documented in Epic. See detailed report if needed. Pertinent Labs/Test Results: INR Date Value 02/07/2022 1.04 07/30/2016 0.94 No results found for: "CREATININE" Hemoglobin A1C (%) Date Value 03/31/2023 6.5 (H) 03/23/2019 6.0 (H) Lab Results Component Value Date/Time AMPHETAMINES - [facility] NEGATIVE 11/06/2018 01:22 PM BARBITURATES - [facility] NEGATIVE 11/06/2018 01:22 PM BENZODIAZEPINES - [facility] NEGATIVE 11/06/2018 01:22 PM METHADONE METABOLITE NEGATIVE 11/06/2018 01:22 PM OXYCODONE NEGATIVE 11/06/2018 01:22 PM OXYCODONE NEGATIVE 11/06/2018 01:22 PM CANNABINOIDS - [facility] NEGATIVE 11/06/2018 01:22 PM URINE TEMPERATURE 96 11/06/2018 01:22 PM Imaging: I personally reviewed the imaging and my findings were . POINT OF CARE US MAJOR JOINT INJECTION, ORTHO Patient Name: TERRANCE LEVY : 1940 (82y) Male Performing Provider: Wilfredo Vázquez (digitally signed Jul 29, 2023 19:38 [facility]) Attending: Wilfredo Vázquez (digitally signed Jul 29, 2023 19:38 [facility]) [Impression] : Procedure note (knee injection), left : Time out:Prior to injection, a time out was called to confirm the administration of appropriate medicine, patient name, procedure and confirm tothe best of our ability and knowledge the presence of any necessary risks and benefits. Patient verbalizes understanding. Ultrasound utilized to guide injectionUltrasound required due to high risk for complications without ultrasound guideance (risk for neurovascular damage) and need to visualize specific joint recess. Reviewed benefits including potential pain reduction and improved function as well as risks including worsening pain or infection in detail with patient and patient verbalizes understanding. Sterile techinique applied. Skin sterilized with alcohol swab. Knee injectedmusing 1.5 inch, 22 gauge needle from lateral approach injected with - lidocaine 1% 1 mL - triamcinolone acetonide 40 mg/mL 1 mL inj 2 mL Patient tolerated procedure with no significant bleeding or adverse reacti Objective Physical Exam: Vital Signs: BP 139/85 | Pulse 82 | Temp 36.3 C (97.3 F) (Tympanic) | Resp 16 | SpO2 95% There is no height or weight on file to calculate BMI. General: No apparent distress. Eyes: pupils equal and round, sclera white, pupils midsize. ENT: mucous membranes moist Resp: Non-labored breathing CV: Extremities warm and well-perfused. Psych: Oriented; affect warm, insight good. Skin: No rashes or lesions appreciated on exposed skin Neuromuscular Exam: Facet loading positive on the right, SLR negative, TTT over right lower back Assessment: Terrance is a 82 year old year-old male with: Lumbosacral spondylosis Plan: The patient is undergoing right-sided L4/5 and L5/S1 (has additional S1/2 lumbarized segment) todayto alleviate his pain and improve his function. The risks, benefits and alternatives to the procedure were reviewed at length and the patient was provided the opportunity to ask questions which were answered to their voiced understanding. Following this comprehensive discussion, the patient opted to proceed. The patient was consented to the procedure following this comprehensive conversation. Kevon Vela DO OR [facility], Operating Room [facility] [address] [place] [address] documented in this encounter Nursing Notes * Brigette Beckman RN - 08/04/2023 2:01 PM EST Visited by Dr Vela. Verbalized understanding of discharge directions. Ready for discharge to home. * Christina Campos RN - 08/04/2023 1:54 PM EST Band aid applied to area. Patient transferred to PACU 11 via wheelchair * Christina Campos RN - 08/04/2023 1:50 PM EST Patient tolerating pain management injection well. documented in this encounter OR Notes * OR Surgeon - Kevon Vela DO - 08/04/2023 1:56 PM EST LUMBAR FACET JOINT INJECTION DATE: 08/04/2023 PHYSICIAN: Kevon Vela DO PREOPERATIVE DIAGNOSIS: Lumbar spondylosis with lumbar facet arthropathy POSTOPERATIVE DIAGNOSIS: Lumbar spondylosis with lumbar facet arthropathy PROCEDURE PERFORMED: L4/5 facet joint injection on the right side with local anesthetic and corticosteroid. Additional levels L5/S1 facet joint injection. Fluoroscopy for precise needle localization. ANESTHESIA: Local infiltration with lidocaine. MONITORS: Automatic blood pressure cuff and pulse oximetry There was no life science research assistant, EBL or drains placed during this procedure. INDICATIONS: We had the pleasure of seeing Terrance Levy ([id number]) in the pain management clinic at the [facility] today. Terrance Levy is a 82 year old year-old male who has a history of lumbar spondylosis with facet arthropathy. The patient is here today for facet joint injections. MEDICATIONS: Current Facility-Administered Medications Medication Dose Route Frequency Provider Last Rate Last Admin [COMPLETED] lidocaine 1 % inj 15 mg 1.5 mL Subcutaneous Once Kevon Vela DO 5 mL at 08/04/23 1449 Iohexol (Omnipaque 180) inj 0.25 mL 0.25 mL Injection Once Kevon Vela DO ALLERGIES: Review of patient's allergies indicates: Allergen Reactions Meloxicam Renal complications Codeine Itching adverse reactions In large amounts only Gluten Itching Breaking out in blisters Iodine Itching oral Lipitor [Atorvastatin Calcium] Muscle pain Penicillins Rash Ultram [Tramadol Hcl] Bad stomach problems Gluten Meal Other reaction(s): rash REVIEW OF SYSTEMS: Negative for fever, chills, chest pain, SOB, bleeding abnormalities, nausea, vomiting, diarrhea, worsening edema, or new rashes. FOCUSED PHYSICAL EXAMINATION: The patient is awake, alert and oriented, and is in no acute distress. Vital signs are stable. The patient is afebrile. The rest of the PE is essentially unchanged from the patient's recent visit to our office. I explained the procedure to the patient including the risks, benefits and alternatives to the procedure. The risks discussed with the patient included but were not limited to: bleeding, infection, and damage to surrounding nerves, tissues, and organs, paralysis, increased pain, allergic reaction, blood pressure instability, seizures, heart block, headaches, increase in blood sugar, worsening of glaucoma, blindness, manic episodes, mood instability, and . Alternatives to the procedure werealso explained and include: do nothing, surgery, medications, and physical therapy. The patient verbalized understanding and was willing to proceed. PROCEDURE IN DETAIL: An informed consent was obtained. The patient was taken to the procedure room and was positively identified by the staff and the attending physician. The patient was positioned prone on the procedure bed. Vital signs were monitored as above and remained stable throughout the procedure. The skin was prepped and draped in the standard sterile fashion. A surgical pause (time-out) was performed and was agreed upon by the members of the team. A fluoroscopic view of the lumbar spine was obtained, and the area of interest was identified. The skin and subcutaneous tissues were anesthetized using 1% lidocaine and 25-gauge 1-1/2-inch needle. Under fluoroscopic guidance, a 22-gauge, 3.5-inch spinal needle was advanced into the L4/5 facet joint on the right side. Additional needles were placed at L5/S1. The needle positions were verified in AP and lateral views. After negative aspiration for the CSF or blood, 1 ml of the injectate was injected into each joint. Total injectate was composed of 40mg triamcinolone and 1mL of 1% lidocaine. All needles were removed. The patient tolerated the procedure well. COMPLICATIONS: None DISPOSITON: 1. Return to clinic in 1-2 months for follow-up evaluation, sooner as needed. 2. Resume activity as tolerated. 3. Patient can drive after 12-24 hours if no weakness noted. Kevon Vela DO OR [facility], Operating Room [facility] [address] [place] [address] documented in this encounter Plan of Treatment Upcoming Encounters Date Type Department Care Team (Latest Contact Info) Description 10/15/2023 9:00 AM EST Office Visit Orthopaedics [facility] [address] [place] [address] Wilfredo Vázquez DO [address] [place] [address] 10/17/2023 11:20 AM EST Hospital Encounter OR [facility], Operating Room [facility] [address] [place] [phone] Kevon Vela DO [address] [place] [address] 10/17/2023 11:20 AM EST - 10/17/2023 11:45 AM EST Surgery OR [facility], Operating Room [facility] [address] [place] [phone] Kevon Vela DO [address] [place] [address] INJECTION SPINE LUMBAR CERVICAL OR THORACIC 10/22/2023 9:00 AM EST Office Visit Orthopaedics [facility] [address] [place] [address] Wilfredo Vázquez, DO [address] [place] [address] 10/29/2023 9:00 AM EST Office Visit Orthopaedics [facility] [address] [place] [address] Wilfredo Vázquez, DO [address] [place] [address] 11/27/2023 6:00 PM EDT Office Visit [facility] [address] [place] [address] Manav De La Vega, DO [address] [place] [address] 05/03/2024 12:00 PM EDT Office Visit [facility] [address] [place] [address] Manav De La Vega, DO [address] [place] [address] Scheduled Procedures Name Priority Associated Diagnoses Date/Ti me INJECTION SPINE LUMBAR CERVICAL OR THORACIC Cervical radiculitis 10/17/2023 11:20 AM EST COLONOSCOPY FLEXIBLE PROXIMAL DIAGNOSTIC Recall History of colon polyps Health Maintenance Due Date Last Done Comments Diabetic Foot Exam 1957 Hepatitis B (1 of 3 - Risk 3-dose series) 1999 Depression Screening 08/30/2022 08/30/2021 DTaP,Tdap,and Td Vaccines (2 - Td or Tdap) 10/05/2022 10/05/2012 Nash's Esophagus Surveilance 10/13/2022 10/13/2019, 08/26/2017, 07/20/2015, Additional history exists COVID-19 Vaccine ( season) 2023 10/11/2022, 01/04/2022, 12/07/2020, Additional history exists HbA1c 10/01/2023 03/31/2023, 07/0 02/2022, 11/22/2021, Additional history exists Albumin/Creatinine Ratio 03/31/2024 03/31/2023 GFR 03/31/2024 03/31/2023, 07/0 02/2022, 02/09/2022, Additional history exists Diabetic Eye Exam 06/24/2024 06/24/2023 Pneumococcal Vaccine: 65+ Years Completed 06/07/2015, 09/29/2012 COLONOSCOPY-EVERY 5 YRS AGES 18-100 Discontinued 12/17/2016, 12/17/2016, 02/28/2011, Additional history exists Zoster Vaccines Completed 10/20/2020, 12/2019, 10/28/2011 Influenza Vaccine (FLU shot) Completed 07/21/2023, 07/16/2022, 05/29/2021, Additional history exists GARDASIL-HPV IMMUNIZATION SERIES Aged Out No longer eligible based on patient's age to complete this topic MENINGOCOCCAL (MENACTRA/MENVEO) Aged Out No longer eligible based on patient's age to complete this topic documented as of this encounter Medical Devices Implanted Type Area Tool Machine Set Up Operator Device Identifier Shelf Expiration Date Model / Serial / Lot 15cm X 20cm Xenmatrix Surgical Graft, Rectangle Implanted:Qty : 1 on 01/29/2022 by Tom Broderick MD at OR [facility] Graft N/A: Abdomen CR BARD : DAVOL [id number] 09/11/2022 [id number] / [id number] / [id number] Trial Lead Kit 50 Cm 16 Contact Implanted:Qty : 1 on 10/20/2017 by Gloria Pardo MD at OR [facility] N/A: Spine Thoracic [employer] : PAIN MGMT 08/08/2019 [id number] / [id number] / Description:T9, 10,11 Clik X Mri [place] Implanted:Qty : 1 on 12/01/2017 by Gloria Pardo MD at OR [facility] N/A: Back [employer] : PAIN MGMT 07/15/2019 [id number] / / [id number] Device Fixate Suturing - [id number] Implanted:Qty : 1 on 05/02/2020 by Gloria Pardo MD at OR [facility] N/A: Back [employer] 03/21/2024 [id number] / / [id number] Trisha Thornton [id number] - [id number] Implanted:Qty : 1 on 02/08/2022 at [facility] COOK : DIAGNOSTIC INTERVENTION [id number] 10/10/2024 [id number] / / [id number] documented as of this encounter Procedures Procedure Name Priority Date/Time Associated Diagnosis Comments FLUORO INTERVENTIONAL PAIN PROCEDURE NONBILLABLE Routine 08/04/2023 2:04 PM EST documented in this encounter Results * FLUORO INTERVENTIONAL PAIN PROCEDURE NONBILLABLE (08/04/2023 2:04 PM EST) Narrative Scheduling, Silent - 08/04/2023 2:05 PM EST This procedure will not be read by a Radiologist. Please see operative note. Kevon GREY FLUOROSCOPY documented in this encounter Administered Medications Inactive Administered Medications - up to 3 most recent administrations Medication Order MAR Action Action Date Dose Rate Site lidocaine 1 % inj 15 mg 15 mg (1.5 mL), Subcutaneous, ONCE, On Fri08/04/23 at 1330, For 1 dose Given 08/04/2023 2:49 PM EST 5 mL Other -Specify Triamcinolone Acetonide (Kenalog) 40 MG/ML inj 40 mg 40 mg, Injection, ONCE, On Fri08/04/23 at 1330, For 1 dose Given 08/04/2023 1:51 PM EST 40 mg documented in this encounter Active and Recently Administered Medications Times are shown in EST. Scheduled Medication Order 08/02/2023 08/03/2023 08/04/2023 Iohexol (Omnipaque 180) inj 0.25 mL 0.25 mL, Injection, ONCE, On Fri08/04/23 at 1400, For 1 dose 1400 (Not Given - Pr ovider: Christina Campos, RN - Reason: Order Discontinued) lidocaine 1 % inj 15 mg (COMPLETED) 15 mg (1.5 mL), Subcutaneous, ONCE, On Fri08/04/23 at 1330, For 1 dose 1449 (Given - Provid er: Christina Campos RN - Comment: right lumbar L4/5 L5/S1 FACET INJECTION divided doses) Triamcinolone Acetonide (Kenalog) 40 MG/ML inj 40 mg (COMPLETED) 40 mg, Injection, ONCE, On 08/04/23 at 1330, For 1 dose 1351 (Given - Provid er: Christina Campos RN - Comment: right lumbar L4/5 L5/S1 FACET INJECTION divided doses) documented in this encounter Advance Directives Latest Code Status on File Code Status Date Activated Date Inactivated Comments Full Code 02/08/2022 12:58 AM 02/09/2022 7:22 PM Question Answer Comments Discussion of Advance Direct kevon occurred with: Not Discussed Code Status History Code Status Date Activated Date Inactivated Comments Full Code 01/29/2022 4:02 PM 02/04/2022 5:34 PM This order reflects the patients wishes and were consensually agreed upon. Full Code 01/29/2022 8:46 AM 01/29/2022 4:02 PM This order reflects the patients wishes and were consensually agreed upon. No Code 08/05/2021 12:41 PM 08/06/2021 7:56 PM Th is order reflects the patients wishes and were consensually agreed upon. Question Answer Comments Discussion of Advance Directives occurred with: Patient/Family Does the patient have a Living Will? No Does the patient have Health Care Power of Net Web Developer? No Full Code 12/13/2015 11:19 AM 12/16/2015 5:05 PM This order reflects the patients wishes and were consensually agreed upon. Question Answer Comments Discussion of Advance Directives occurred with: Patient Does the patient have a Living Will? No Does the patient have Health Care Power of Net Web Developer? No Care Teams Property Handler Relationship Specialty Start Date End Date Manav De La Vega DO [address] [place] [address] PCP - General Family Medicine 04/16/18 documented as of this encounter
--- OUTSIDE RECORDS SUMMARY | 2023-08-12 13:42 | External Medical Summary | Summary of Care ---
Author Name Unknown Organization [facility] Address [address] [address] Phone [phone] Care Team Providers Care Health Care Manager Name Role Phone Manav De La Vegaadeline Primary Care Provider Reason for Visit * Reason Comments Knee Pain Left Encounter Details Date Type Department Care Team (Latest Contact Info) Description 07/29/2023 8:30 AM EST Office Visit Orthopaedics [facility] [address] [place] [address] Wilfredo Vázquez DO [address] [place] [address] Primary osteoarthritis of left knee* Allergies Active Allergy Reactions Criticality Noted Date Comments Codeine Itching 05/20/2012 adverse reactions In large amounts only Gluten Itching 05/29/2005 Breaking out in blisters Gluten Meal Low 11/28/2022 Other reaction(s): rash Iodine Itching 02/28/2011 oral Atorvastatin Calcium Muscle pain 02/21/2014 Meloxicam Renal complications Medium 09/24/2017 Penicillins Rash 08/16/2002 Tramadol Hcl 08/07/2011 Bad stomach problems documented as of this encounter (statuses as of 07/29/2023) Medications Medication Sig Dispensed Refills Start Date [...] and water. 2 Tablet 0 04/18/2023 Active Additional Information Patient not taking.Reported on 05/01/2023 metFORMIN HCl ER 500 MG Oral Tablet Extended Release 24 Hour (Glucophage XR)Indications:Type 2 diabetes mellitus without complication, without long-term current use of insulin (HCC) TAKE ONE TABLET BY MOUTH TWICE DAILY WITH MEALS 180 Tablet 1 04/23/2023 Active Albuterol Sulfate HFA 108 (90 Base) MCG/ACT Inhalation Aerosol Solution INHALE 2 PUFFS BY MOUTH 4 TIMES DAILY 18 g 1 05/02/2023 05/01/2024 Active Dapsone 25 MG Oral Tablet TAKE 2 TABLETS BY MOUTH DAILY NEEDED FOR ITCHING 60 Tablet 2 05/01/2023 Active HYDROcodone-Acetami nophen 10-325 MG Oral TabletIndications:L umbar radiculitis Take 1 Tablet by mouth every 6 hours as needed for Other (pain). 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 11/21/2022 Atherosclerosis of [place] co ronary artery without angina pectoris 11/22/2021 [...] as of this encounter (statuses as of 07/29/2023) Resolved Problems Problem Noted Date Diagnosed Date [...] as of this encounter (statuses as of 07/29/2023) Immunizations Name Administration Dates Next Due COVID-19 mRNA, LNP-s, No Pre serve, 2-Dose Series (Pfizer) 12/07/2020,11/16/2020 COVID-19, LNP-s, No Preserve , Justice-sucrose, [...] on file documented as of this encounter Functional Status Functional Status Response [...] No 02/08/2022 documented as of this encounter Progress Notes * Wilfredo Vázquez, DO - 07/29/2023 8:30 AM EST Michele Levy [id number] Michele Levy is a 82 year old male who presents for follow up of left knee pain to [facility]. 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 Statin intolerance Z78.9 Osteoarthrosis, localized, primary, involving lower leg M17.10 Lumbar radiculitis M54.16 S/P lumbar microdiscectomy Z98.890 Primary osteoarthritis of left knee M17.12 S/P lumbar fusion Z98.1 HTN, goal below 140/90 I10 Systolic ejection murmur R01.1 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 Controlled substance agreement signed Z79.899 Chronic pain G89.29 History of colon polyps Z86.010 Prediabetes R73.03 Primary osteoarthritis of both first carpometacarpal joints M18.0 Hyperlipidemia, unspecified E78.5 Atherosclerosis of aorta ([facility]) I70.0 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 Red Yeast Rice 600 MG TABS Tablet Take 1 Tablet by mouth in the morning and 1 Tablet before bedtime. NITROSTAT 0.4 MG SUBL As needed (Patient not taking: Reported on 05/01/2023) CYANOCOBALAMIN (VITAMIN B-12) 100 MCG Tablet Take 1 Tablet by mouth in the morning. Diclofenac Sodium (VOLTAREN) 1 % gel Place 4 g topically on the skin 2 times a day. To affected area as directed. 100 g 6 aspirin enteric coated 81 MG TBEC Take 1 Tablet by mouth in the morning. Polyethylene Glycol 3350 17 GM/SCOOP Oral Powder (MiraLax) Take 17 g by mouth daily as needed for Constipation. 255 g 0 Ezetimibe 10 MG Oral Tablet (Zetia) Take 1 Tablet by mouth in the morning. CPAP every night at bedtime . (Patient not taking: Reported on 05/01/2023) Sennosides 8.6 MG Oral Tablet (Senokot) Take by mouth 1 Tablet in the morning. For constipation. 15Tablet 0 Lisinopril 5 MG Oral Tablet (Prinivil) TAKE 1 TABLET BY MOUTH IN THE EVENING. 90 Tablet 3 Pantoprazole Sodium 40 MG Oral Tablet Delayed Release (Protonix) Take 1 Tablet by mouth in the morning. 90 Tablet 3 Sildenafil Citrate 50 MG Oral Tablet Take 1/2 to 1 tablet by mouth 30 minutes prior to intercourse as needed for erectile dysfunction. 30 Tablet 2 Finasteride 5 MG Oral Tablet (Proscar) TAKE ONE TABLET BY MOUTH DAILY 90 Tablet 3 Gabapentin 600 MG Oral Tablet (Neurontin) TAKE 1 TABLET BY MOUTH IN THE MORNING, TAKE 1 AND 1/2 TABLETS AT NOON AND TAKE 1 TABLET IN THE EVENING 315 Tablet 3 tiZANidine HCl 2 MG Oral Tablet (Zanaflex) Take 1 Tablet by mouth 2 times a day as needed. 90 Tablet 1 Ezetimibe 10 MG Oral Tablet (Zetia) TAKE ONE TABLET (10MG) BY MOUTH DAILY 90 Tablet 1 predniSONE 50 MG Oral Tablet (Deltasone) Take 1 tablet by mouth 13 hours prior and 1 tablet 1 hour prior to scheduled procedure. Take with food and water. (Patient not taking: Reported on 05/01/2023) 2 Tablet 0 metFORMIN HCl ER 500 MG Oral Tablet Extended Release 24 Hour (Glucophage XR) TAKE ONE TABLET BY MOUTH TWICE DAILY WITH MEALS 180 Tablet 1 Albuterol Sulfate HFA 108 (90 Base) MCG/ACT Inhalation Aerosol Solution INHALE 2 PUFFS BY MOUTH 4 TIMES DAILY 18 g 1 Dapsone 25 MG Oral Tablet TAKE 2 TABLETS BY MOUTH DAILY NEEDED FOR ITCHING 60 Tablet 2 HYDROcodone-Acetaminophen 10-325 MG Oral Tablet Take 1 Tablet by mouth every 6 hours as needed for Other (pain). 120 Tablet 0 Current Facility-Administered Medications Medication Dose Route Frequency Provider Last Rate Last Admin lidocaine 1% 1 mL - triamcinolone acetonide 40 mg/mL 1 mL inj 2 mL 2 mL Injection Once Wilfredo Vázquez, DO Hemoglobin AIC Results: Lab Results Component Value Date/Time HEMOGLOBIN A1C - [facility] 6.5 (H) 03/31/2023 08:58 AM HEMOGLOBIN A1C - [facility] 6.2 (H) 03/20/2022 09:53 AM HEMOGLOBIN A1C - [facility] 8.1 (H) 11/22/2021 03:48 PM HEMOGLOBIN A1C - [facility] 6.0 (H) 03/23/2019 07:31 AM PE: Lef knee ROM 0-120 Strength: 5/5 Effusion:trace TTP:medial jt line Xray left knee 09/13/20: mod to early severe OA medially Assessment and Plan: he wishes to cont injection and not have TKA, will also pre plan RUTH late Sep 2023, monitor glucose Primary osteoarthritis of left knee (Primary) - POINT OF CARE US MAJOR JOINT INJECTION, ORTHO - lidocaine 1% 1 mL - triamcinolone acetonide 40 mg/mL 1 mL inj 2 mL Wilfredo Vázquez DO [facility] [address] [place] [address] Procedure note (knee injection), left : Time out: Prior to injection, a time out was called to confirm the administration of appropriate medicine, patient name, procedure and confirm to the best of our ability and knowledge the presence of any necessary risks and benefits. Patient verbalizes understanding. Ultrasound utilized to guide injection Ultrasound required due to high risk for complications [...] 1% 1 mL - triamcinolone acetonide 40 mg/mL1 mL inj 2 mL Patient tolerated procedure with no significant bleeding or adverse reaction. Patient instructed to call or return to clinic for fever or warmth and redness at injection site for potential infection. Patient also advised as to potential for steroid flare reaction including increased pain and redness at injection site which should be treated with ice and resolve within 24 hours. Wilfredo Vázquez DO documented in this encounter Nursing Notes * Marbella Almanza LPN - 07/29/2023 8:17 AM EST Left knee follow up last injection Gelsyn injectioin 04/13/23. Marbella Peterson LPN documented in this encounter Plan of Treatment Upcoming Encounters Date Type Department Care Team (Latest Contact Info) Description 08/04/2023 1:20 PM EST Hospital Encounter OR [facility], Operating Room [facility] [address] [place] [id number] Kevon Vela DO [address] [phone] 08/04/2023 1:20 PM EST - 08/04/2023 1:45 PM EST Surgery OR [facility], Operating Room [facility] [address] [place] [id number] Kevon Vela, DO [address] [place] [phone] INJECTION SPINE LUMBAR CERVICAL OR THORACIC 10/15/2023 9:00 AM EST Office Visit [facility] [address] [place] [address] Wilfredo Vázquez, DO [address] [place] [address] 10/22/2023 9:00 AM EST Office Visit [facility] [address] [place] [address] Wilfredo Vázquez, DO [address] [place] [address] 10/29/2023 9:00 AM EST Office Visit [facility] [address] [place] [address] Wilfredo Vázquez, DO [address] [place] [address] 11/27/2023 6:00 PM EDT Office Visit [facility] [address] [place] [address] Manav De La Vega, DO [address] [place] [address] 05/03/2024 12:00 PM EDT Office Visit [facility] [address] [place] [address] Manav De La Vega, DO [address] [place] [address] Scheduled Orders Name Type Priority Associated Diagnoses Orde r Schedule POINT OF CARE US MAJOR JOINT INJECTION, ORTHO Medical Imaging Routine Primary osteoarthritis of left knee Ordered: 07/29/2023 Scheduled Procedures Name Priority Associated Diagnoses Date/Ti me INJECTION SPINE LUMBAR CERVICAL OR THORACIC Cervical radiculitis 08/04/2023 1:20 PM EST COLONOSCOPY FLEXIBLE PROXIMAL DIAGNOSTIC Recall History [...] Additional history exists Zoster Vaccines Completed 10/20/2020, 1212/2019, 10/28/2011 Influenza Vaccine (FLU shot) Completed 07/21/2023, 07/16/2022, 05/29/2021, Additional history exists GARDASIL-HPV IMMUNIZATION SERIES Aged Out No longer eligible based on patient's age to complete this topic MENINGOCOCCAL (MENACTRA/MENVEO) Aged Out No longer eligible based on patient's age to complete this topic documented as of this encounter Medical Devices Implanted Type Area Gear Hobber Device Identifier Shelf Expiration Date Model / Serial / Lot 15cm X 20cm Xenmatrix Surgical Graft, Rectangle Implanted:Qty : 1 on 01/29/2022 by Tom Broderick MD at OR [facility] Graft N/A: Abdomen CR BARD : DAVOL [id number] 09/11/2022 [id number] / [id number] / [id number] Trial Lead Kit 50 Cm 16 Contact Implanted:Qty : 1 on 10/20/2017 by Gloria Pardo MD at OR [facility] N/A: Spine Thoracic [employer] : PAIN MGMT 08/08/2019 [id number] E / [id number] / Description:T9, 10,11 Clik X Mri [place] Implanted:Qty : 1 on 12/01/2017 by Gloria Pardo MD at OR [facility] N/A: Back [employer] : PAIN MGMT 07/15/2019 [id number] / / [id number] Device Fixate Suturing - [id number] Implanted:Qty : 1 on 05/02/2020 by Gloria Pardo MD at OR [facility] N/A: Back [employer] 03/21/2024 [id number] / / [id number] [facility] Ryan Thornton [id number] - [id number] Implanted:Qty : 1 on 02/08/2022 at [facility] COOK : DIAGNOSTIC INTERVENTION [id number] 10/10/2024 [id number] / / [id number] documented as of this encounter Visit Diagnoses Diagnosis Primary osteoarthritis of left knee- Primary Primary localized osteoarthrosis, lower leg Cervical radiculitis Brachial neuritis or radiculitis nos documented in this encounter Administered Medications Inactive Administered Medications - up to 3 most recent administrations Medication Order MAR Action Action Date Dose Rate Site lidocaine 1% 1 mL - triamcinolone acetonide 40 mg/mL 1 mL inj 2 mL 2 mL, Injection, ONCE, On Tu07/29/23 at 0915, For 1 dose, Lidocaine 1% 1mL Triamcinolone Acetonide 40 mg/mL 1 mL (Final concentration = 20 mg/mL) REFRIGERATE and SHAKE WELL Given 07/29/2023 1:13 PM EST 2 mL Knee Left documented in this encounter Advance Directives Latest [...] the patient have Health Care Power of Rn Rehab? No Full Code 12/13/2015 11:19 AM 12/16/2015 5:05 PM This order reflects the patients wishes and were consensually agreed upon. Question Answer Comments Discussion of Advance Directives occurred with: Patient Does the patient have a Living Will? No Does the patient have Health Care Power of Rn Rehab? No Care Teams Health Care Manager Relationship Specialty Start Date End Date Manav De La Vega DO [address] [place] [address] PCP - General Family Medicine 04/16/18 documented as of this encounter
--- OUTSIDE RECORDS SUMMARY | 2023-08-12 13:42 | External Medical Summary | Summary of Care ---
Author Name Unknown Organization [facility] Address [address] [place] [address] Phone [phone] Care Team Providers Care Diesel Power Shovel Operator Name Role Phone Manav De La Vega DO Primary Care Provider Reason for Visit * Reason Onset Date Comments Medication Refill 08/11/2023 Encounter Details Date Type Department Care Team (Late st Contact Info) Description 08/11/2023 Refill Family Practice [facility] [address] [place] [address] Manav De La Vega DO [address] [place] [address] Lumbar radiculopathy Allergies Active Allergy Reactions Criticality Noted Date Comments Codeine Itching 05/20/2012 adverse reactions In large amounts only Gluten Itching 05/29/2005 Breaking out in blisters Gluten Meal Low 11/28/2022 Other reaction(s): rash Iodine Itching 02/28/2011 oral Atorvastatin Calcium Muscle pain 02/21/2014 Meloxicam Renal complications Medium 09/24/2017 Penicillins Rash 08/16/2002 Tramadol Hcl 08/07/2011 Bad stomach problems documented as of this encounter (statuses as of 08/11/2023) Medications Medication Sig Dispensed Refills Start Date [...] 02/04/2022 Active Lisinopril 5 MG Oral Tablet (Prinivil)Indicati ons:HTN, goal below 140/90 TAKE 1 TABLET BY MOUTH IN THE EVENING. 90 Tablet 3 08/02/2022 3 Active Pantoprazole Sodium 40 MG Oral Tablet Delayed Release (Protonix)Indicati ons:High grade dysplasia of Nash's epithelium Take 1 Tablet by mouth in the morning. 90 Tablet 3 09/24/2022 Active Sildenafil Citrate 50 MG Oral TabletIndications: Combined arterial insufficiency and corporo-venous occlusive erectile dysfunction Take 1/2 to 1 tablet by mouth 30 minutes prior to intercourse as needed for erectile dysfunction. 30 Tablet 2 10/14/2022 Active Finasteride 5 MG Oral Tablet (Proscar)Indicatio ns:BPH with obstruction/lower urinary tract symptoms TAKE ONE TABLET BY MOUTH DAILY 90 Tablet 3 11/21/2022 4 Active Gabapentin 600 MG Oral Tablet (Neurontin)Indicat ions:Lumbar radiculitis TAKE 1 TABLET BY MOUTH IN THE MORNING, TAKE 1 AND 1/2 TABLETS AT NOON AND TAKE 1 TABLET IN THE EVENING 315 Tablet 3 11/21/2022 4 Active Ezetimibe 10 MG Oral Tablet (Zetia) [...] Oral Tablet Extended Release 24 Hour (Glucophage XR)Indications:Typ e 2 diabetes mellitus without complication, without long-term current use of insulin (HCC) TAKE ONE TABLET BY MOUTH TWICE DAILY WITH MEALS 180 Tablet 1 04/23/2023 Active Albuterol Sulfate HFA 108 (90 Base) MCG/ACT Inhalation Aerosol Solution INHALE 2 PUFFS BY MOUTH 4 TIMES DAILY 18 g 1 05/02/2023 4 Active Dapsone 25 MG Oral Tablet TAKE 2 TABLETS BY MOUTH DAILY NEEDED FOR ITCHING 60 Tablet 2 05/01/2023 Active HYDROcodone-Acetam inophen 10-325 MG Oral TabletIndications: Lumbar radiculitis Take 1 Tablet by mouth every 6 hours as needed for Other (pain). 120 Tablet 0 08/04/2023 Active tiZANidine HCl 2 MG Oral Tablet (Zanaflex)Indicati ons:Lumbar radiculopathy Take 1 Tablet by mouth 2 times a day as needed for Muscle spasms. 60 Tablet 1 08/11/2023 Active tiZANidine HCl 2 MG Oral Tablet (Zanaflex)Indicati ons:Lumbar radiculopathy Take 1 Tablet by mouth 2 times a day as needed. 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 11/22/2021 [...] as of this encounter (statuses as of 08/11/2023) Resolved Problems Problem Noted Date Diagnosed Date [...] as of this encounter (statuses as of 08/11/2023) Immunizations Name Administration Dates Next Due COVID-19 [...] No 02/08/2022 documented as of this encounter Miscellaneous Notes * Telephone Encounter - Brigitte Campuzano MD - 08/11/2023 12:00 PM EST Signed Prescriptions: Disp Refills tiZANidine HCl 2 MG Oral Tablet (Zanaflex) 60 Tab*1 Sig: Take 1 Tablet by mouth 2 times a day as needed for Muscle spasms.Authorizing Provider: BRIGITTE CAMPUZANO * Telephone Encounter - Brigitte Campuzano MD - 08/11/2023 11:59 AM EST I have reviewed the patient's controlled substance dispensing history in the Prescription Drug Monitoring Program in compliance with the [facility] regulations before prescribing a controlled substance. * Telephone Encounter - Vandana Charlton, CONSULTING SOLUTION DIRECTOR - 08/11/2023 9:41 AM EST Patient calling in stating that he never heard anything about PT and then found a message on his phone and now has an appointment scheduled at [facility] for Friday to start PT which he is not too sure that it is going to help. He stated that the injection that Dr. Vela did about a week ago is starting to finally work. He is also asking for a refill on Tizanidine, pended for approval. Pending Prescriptions: Disp Refills tiZANidine HCl 2 MG Oral Tablet (Zanaflex)90 Tab*1 Sig: Take 1 Tablet by mouth 2 times a day as needed. 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 J92.0 ILD (interstitial lung disease) ([facility]) J84.9 Atherosclerosis of jamul coronary artery without angina pectoris I25.10 Diabetes mellitus without complication (HCC) E11.9 Spinal cord stimulator status Z96.89 Old myocardial infarct I25.2 Labs: Lab Results Component Value Date/Time CREAT GFR 0.92 07/30/2016 10:45 AM CREATININE - [facility] 1.0 03/31/2023 08:58 AM CREATININE - [facility] 1.1 09/12/2020 08:49 AM CREATININE, RANDOM URINE - [facility] 139 03/31/2023 08:58 AM Lab Results Component Value Date/Time POTASSIUM - [facility] 4.8 03/31/2023 08:58 AM POTASSIUM - [facility] 4.5 09/12/2020 08:49 AM Lab Results Component Value Date/Time TSH - [facility] 1.43 08/13/2021 04:29 AM TSH - [facility] 2.09 03/23/2019 07:31 AM Lab Results Component Value Date/Time LDL CHOLESTEROL (CALCULATED) - [facility] 83 03/31/2023 08:58 AM LDL CHOLESTEROL (CALCULATED) - [facility] 117 09/12/2020 08:49 AM LDL CHOLESTEROL (CALCULATED) - [facility] 109 03/23/2019 07:31 AM LDL CHOLESTEROL (DIRECT MEASURE) - [facility] NOT APPLICABLE 03/23/2019 07:31 AM Lab Results Component Value Date/Time ALT - [facility] 18 03/31/2023 08:58 AM ALT - [facility] 32 09/12/2020 08:49 AM Hemoglobin AIC Results: Lab Results Component Value Date/Time HEMOGLOBIN A1C - [facility] 6.5 (H) 03/31/2023 08:58 AM HEMOGLOBIN A1C - [facility] 6.2 (H) 03/20/2022 09:53 AM HEMOGLOBIN A1C - [facility] 8.1 (H) 11/22/2021 03:48 PM HEMOGLOBIN A1C - [facility] 6.0 (H) 03/23/2019 07:31 AM documented in this encounter Plan of Treatment Upcoming Encounters Date Type Department Care Team (Latest Contact Info) Description 10/15/2023 9:00 AM EST Office Visit Orthopaedics [facility] [address] [place] [address] Wilfredo Vázquez, [address] [place] [address] 10/17/2023 11:20 AM EST Hospital Encounter [facility], Operating Room [facility] [address] [place] [phone] Kevon Vela, DO [address] [place] [address] 10/17/2023 11:20 AM EST - 10/17/2023 11:45 AM EST Surgery [facility], Operating [facility] [address] [place] [address] Kevon Vela, DO [address] [place] [phone] INJECTION SPINE LUMBAR CERVICAL OR THORACIC 10/22/2023 9:00 AM EST Office Visit Orthopaedics [facility] [address] [place] [address] Wilfredo Vázquez, DO [address] [place] [address] 10/29/2023 9:00 AM EST Office Visit Orthopaedics [facility] [address] [place] [address] Wilfredo Vázquez, DO [address] [place] [address] 11/27/2023 6:00 PM EDT Office Visit Family Practice [facility] [address] [place] [address] Manav De La Vega, DO [address] [place] [address] 05/03/2024 12:00 PM EDT Office Visit [facility] [address] [place] [address] Manav De La Vega, DO [address] [place] [address] Scheduled Procedures Name Priority Associated Diagnoses Date/Ti [...] this encounter Medical Devices Implanted Type Area Filter Changer Device Identifier Shelf Expiration Date Model / Serial / Lot 15cm X 20cm Xenmatrix Surgical Graft, Rectangle Implanted:Qty : 1 on 01/29/2022 [place] [facility] [place] N/A: Abdomen CR BARD : DAVOL [id number] 09/11/2022 [id number] / [id number] / [id number] Trial Lead Kit 50 Cm 16 Contact Implanted:Qty : 1 on 10/20/2017 by Gloria Pardo MD at OR [facility] N/A: Spine Thoracic [employer] : PAIN MGMT 08/08/2019 [id number] E / [id number] / Description:T9, 10,11 Clik X Mri [place] Implanted:Qty : 1 on 12/01/2017 by Gloria Pardo MD at OR [facility] N/A: Back [employer] : PAIN MGMT 07/15/2019 [id number] / / [id number] Device Fixate Suturing - [id number] Implanted:Qty : 1 on 05/02/2020 by Gloria Pardo MD at OR [facility] N/A: Back FOUNDD 03/21/2024 [id number] / / [id number] [facility] Ryan Thornton [id number] - [id number] Implanted:Qty : 1 on 02/08/2022 at [facility] COOK : DIAGNOSTIC INTERVENTION [id number] 10/10/2024 [id number] / / [id number] documented as of this encounter Visit Diagnoses Diagnosis Lumbar radiculopathy Thoracic or lumbosacral neuritis or radiculitis, unspecified Cervical radiculitis Brachial neuritis or radiculitis nos documented in this encounter Advance Directives Latest [...] the patient have Health Care Power of Surgical Aides Teacher? No Full Code 12/13/2015 11:19 AM 12/16/2015 5:05 PM This order reflects the patients wishes and were consensually agreed upon. Question Answer Comments Discussion of Advance Directives occurred with: Patient Does the patient have a Living Will? No Does the patient have Health Care Power of Surgical Aides Teacher? No Care Teams Diesel Power Shovel Operator Relationship Specialty Start Date End Date Manav De La Vega DO [address] [place] [address] PCP - General Family Medicine 04/16/18 documented as of this encounter
--- OUTSIDE RECORDS SUMMARY | 2023-08-12 13:42 | External Medical Summary | Summary of Care ---
Author Name Unknown Organization [facility] [address] [address] Phone [phone] Care Team Providers Care Brass And Wind Instrument Repairer Name Role Phone Manav De La Vegaadeline Primary Care Provider Reason for Visit * Reason Comments Knee Pain Left Encounter Details Date Type Department Care Team (Latest Contact Info) Description 07/29/2023 8:30 AM EST Office Visit Orthopaedics [facility] [address] [place] [address] Wilfredo Vázquez DO [address] [place] [address] Primary osteoarthritis of left knee* Allergies Active [...] 2 mL IJ ONCE 07/29/2023 07/29/20 23 Active documented as of this encounter (statuses as of 07/29/2023) Active Problems Problem Noted Date Diagnosed Date 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 J92.0 ILD (interstitial lung disease) ([facility]) J84.9 Atherosclerosis of osage coronary artery without angina pectoris I25.10 Diabetes mellitus without complication ([facility]) E11.9 Spinal cord stimulator status Z96.89 [...] Vázquez DO Primary Care Sports Medicine Orthopaedics [address] [place] [address] Procedure note (knee injection), left : Time [...] [place] [id number] Kevon Vela DO [address] [place] [address] 08/04/2023 1:20 PM EST - 08/04/2023 1:45 PM EST Surgery OR [facility], Operating Room [facility] [address] [place] [phone] Kevon Vela, DO [address] [place] [phone] INJECTION SPINE LUMBAR CERVICAL OR THORACIC 10/15/2023 9:00 AM EST Office Visit [facility] [address] [place] [address] Wilfredo Vázquez, DO [address] [place] [address] 10/22/2023 9:00 AM EST Office Visit [facility] [address] [place] [address] Wilfredo Vázquez, DO [address] [place] [address] 10/29/2023 9:00 AM EST Office Visit [facility] [address] [place] [address] Wilfredo Vázquez, DO [address] [place] [address] 11/27/2023 6:00 PM EDT Office Visit [facility] [address] [place] [address] Manav De La Vega, DO [address] [place] [address] 05/03/2024 12:00 PM EDT Office Visit [facility] [address] [place] [address] Manav De La Vega, DO [address] [place] [address] Scheduled Orders Name Type Priority Associated Diagnoses [...] this encounter Medical Devices Implanted Type Area Advertising Columnist Device Identifier Shelf Expiration Date Model / Serial / Lot 15cm X 20cm Xenmatrix Surgical Graft, Rectangle Implanted:Qty : 1 on 01/29/2022 by Tom Broderick MD at OR [facility] Graft N/A: Abdomen CR BARD : DAVOL [id number] 09/11/2022 [id number] / [id number] / [id number] Trial Lead Kit 50 Cm 16 Contact Implanted:Qty : 1 on 10/20/2017 by Gloria Pardo MD at OR [facility] N/A: Spine Thoracic [employer] : PAIN MGMT 08/08/2019 [facility] [place] [id number] E / [id number] / Description:T9, 10,11 Clik X Mri [place] Implanted:Qty : 1 on 12/01/2017 by Gloria Pardo MD at OR [facility] N/A: Back [employer] : PAIN MGMT 07/15/2019 [facility] [place] [id number] / / [id number] Device Fixate Suturing - [id number] Implanted:Qty : 1 on 05/02/2020 by Gloria Pardo MD at OR [facility] N/A: Back [employer]sta™ 03/21/2024 [id number] / / [id number] [facility] Ryan Thornton [id number] - [id number] Implanted:Qty : 1 on 02/08/2022 at [facility] COOK : DIAGNOSTIC INTERVENTION [id number] 10/10/2024 [id number] / / [id number] documented as of this encounter Visit Diagnoses [...] the patient have Health Care Power of Snubber? No Full Code 12/13/2015 11:19 AM 12/16/2015 5:05 PM This order reflects the patients wishes and were consensually agreed upon. Question Answer Comments Discussion of Advance Directives occurred with: Patient Does the patient have a Living Will? No Does the patient have Health Care Power of Snubber? No Care Teams Brass And Wind Instrument Repairer Relationship Specialty Start Date End Date Manav De La Vega DO [address] [place] [address] PCP - General Family Medicine 04/16/18 documented as of this encounter
--- OUTSIDE RECORDS SUMMARY | 2023-08-12 13:43 | External Medical Summary | Summary of Care ---
Author Name Unknown Organization [facility] Address [address] [place] [address] Phone [phone] Care Team Providers Care Biofuels Manager Name Role Phone Mta De La Vegaleeanne Jonesadeline Primary Care Provider Reason for Visit * Reason Onset Date Comments Administrative Follow-Up 10/29/2022 6MW res ults Encounter Details Date Type Department Care Team Description 10/29/2022 Telephone Pulmonary Medicine, [facility] [address] [place] [address] Elly Levi CRNP Administrative Follow-Up (6MW results) Allergies Active Allergy Reactions Severity Noted Date Comments Codeine Itching 05/20/2012 adverse reactions In large amounts only Gluten Itching 05/29/2005 Breaking out in blisters Gluten Meal Low 11/28/2022 Other reaction(s): rash Iodine Itching 02/28/2011 oral Atorvastatin Calcium Muscle pain 02/21/2014 Meloxicam Renal complications Medium 09/24/2017 Penicillins Rash 08/16/2002 Tramadol Hcl 08/07/2011 Bad stomach problems documented as of this encounter (statuses as of 06/27/2023) Medications Medication Sig Dispensed Refills Start Date End Date Status MULTIVITAMINS PO CAPS 1 daily 0 Active TYLENOL 325 MG PO TABS Take 2 Tablets by mouth every 6 hours as needed. 0 Active Red Yeast Rice 600 MG TABS Tablet Take 1 Tablet by mouth in the morning and 1 Tablet before bedtime. 0 Active NITROSTAT 0.4 MG SUBL As needed 0 05/14/20 16 Active CYANOCOBALAMIN (VITAMIN B-12) 100 MCG Tablet Take 1 Tablet by mouth in the morning. 0 Active Diclofenac Sodium (VOLTAREN) 1 % gel Place 4 g topically on the skin 2 times a day. To affected area as directed. 100 g 6 07/07/20 19 Active aspirin enteric coated 81 MG TBEC Take 1 Tablet by mouth in the morning. 0 Active Polyethylene Glycol 3350 17 GM/SCOOP Oral Powder (MiraLax) Take 17 g by mouth daily as needed for Constipation. 255 g 0 08/06/20 21 Active Ezetimibe 10 MG Oral Tablet (Zetia) Take 1 Tablet by mouth in the morning. 0 08/23/20 21 Active CPAP every night at bedtime . 0 Active Sennosides 8.6 MG Oral Tablet (Senokot) Take by mouth 1 Tablet in the morning. For constipation. 15 Tablet 0 02/05/20 22 Active Lisinopril 5 MG Oral Tablet (Prinivil)Indicati ons:HTN, goal below 140/90 TAKE 1 TABLET BY MOUTH IN THE EVENING. 90 Tablet 3 08/02/20 22 023 Active Pantoprazole Sodium 40 MG Oral Tablet Delayed Release (Protonix)Indicati ons:High grade dysplasia of Nash's epithelium Take 1 Tablet by mouth in the morning. 90 Tablet 3 09/24/19 23 Active Sildenafil Citrate 50 MG Oral TabletIndications: Combined arterial insufficiency and corporo-venous occlusive erectile dysfunction Take 1/2 to 1 tablet by mouth 30 minutes prior to intercourse as needed for erectile dysfunction. 30 Tablet 2 10/14/19 23 Active diphenhydrAMINE HCl 25 MG Oral Capsule (Benadryl Allergy) Take 2 tabs by mouth [address] scan. 2 Cap 0 07/18/20 21 023 Discontinued Docusate Sodium 100 MG Oral Capsule (Colace) Take by mouth 1 Capsule in the morning AND 1 Capsule before bedtime. For stool softener. 30 Capsule 0 02/05/20 22 022 Discontinued(Yael garcia prescription brought in as discontinued) oxygen IN GASIndications:Noc turnal hypoxemia,Acute respiratory failure due to COVID-19 (HCC) Discontinue standing oxygen concentrator and portable oxygen tank. 1 Each 0 05/08/20 22 023 Discontinued(Ga dication List Clean Up) Diclofenac Sodium 1 % External Gel (Voltaren) PLACE 4 GRAM TOPICALLY ON THE SKIN 2 TIMES A DAY. 100 g 6 06/13/20 22 023 tiZANidine HCl 2 MG Oral Tablet (Zanaflex)Indicati ons:Lumbar radiculitis TAKE ONE TABLET BY MOUTH TWO TIMES A DAY NEEDED FOR MUSCLE SPASMS 90 Tablet 1 05/31/20 22 023 Discontinued Ciprofloxacin HCl 500 MG Oral Tablet (Cipro) TAKE 1 TABLET BY MOUTH IN THE MORNING AND 1 TABLET AT BEDTIME. 18 Tablet 0 02/22/20 22 023 Discontinued Albuterol Sulfate HFA 108 (90 Base) MCG/ACT Inhalation Aerosol Solution INHALE 2 PUFFS BY MOUTH 4 TIMES DAILY 18 g 1 01/08/20 22 023 Discontinued(Re fill) Ondansetron 4 MG Oral Tablet Disintegrating (Zofran) DISSOLVE ONE TABLET ON TONGUE EVERY 8 HOURS NEEDED FOR NAUSEA 30 Tablet 0 12/14/19 22 023 Clindamycin HCl 300 MG Oral CapsuleIndications :Cellulitis of abdominal wall TAKE ONE CAPSULE BY MOUTH IN THE MORNING THEN ONE CAPSULE AT NOON AND ONE CAPSULE IN THE EVENING AND ONE CAPSULE BEFORE BEDTIME FOR 10 DAYS 40 Capsule 0 12/11/19 22 023 Discontinued metFORMIN HCl ER 500 MG Oral Tablet Extended Release 24 Hour (Glucophage XR)Indications:Typ e 2 diabetes mellitus without complication, without long-term current use of insulin (HCC) TAKE ONE TABLET BY MOUTH TWICE DAILY WITH MEALS 180 Tablet 3 12/11/19 22 023 Discontinued(Re fill) Doxycycline Hyclate 100 MG Oral CapsuleIndications :Infected hernioplasty mesh, subsequent encounter TAKE 1 CAPSULE BY MOUTH IN THE MORNING AND 1 CAPSULE BEFORE BEDTIME FOR TEN DAYS UNTIL GONE 20 Capsule 0 11/23/19 22 023 Discontinued Ezetimibe 10 MG Oral Tablet (Zetia) TAKE ONE TABLET (10MG) BY MOUTH DAILY 90 Tablet 0 09/24/19 23 023 Discontinued(Re fill) Dapsone 25 MG Oral Tablet TAKE 2 TABLETS BY MOUTH DAILY NEEDED FOR ITCHING 60 Tablet 2 09/24/19 23 023 Discontinued(Re fill) HYDROcodone-Acetam inophen 10-325 MG Oral TabletIndications: Lumbar radiculitis Take 1 Tablet by mouth every 6 hours as needed for Other (pain). 120 Tablet 0 10/05/19 23 023 Discontinued(Re fill) oxygen IN GASIndications:Chr onic respiratory failure with hypoxia (HCC),ILD (interstitial lung disease) (HCC) 2 LPM via NC with ambulation. Titrate for an SpO2 of 90-94%. 1 Each 0 10/29/19 23 023 Discontinued Hospital, Clinic, or Other Facility Administered Medication Ordered Dose Route Frequency Start Date End Date Status Albuterol Sulfate (Proventil) (2.5 MG/3ML) 0.083% inhalation solution 2.5 mgIndications:ILD (interstitial lung disease) (HCC) 2.5 mg NEBULIZER PRN 01/01/2022 01/01/2023 Ended Albuterol Sulfate (Proventil) (5 MG/ML) 0.5% *conc* inhalation solution 2.5 mgIndications:ILD (interstitial lung disease) (HCC) 2.5 mg NEBULIZER PRN 01/01/2022 01/01/2023 Ended documented as of this encounter (statuses as of 06/27/2023) Active Problems Problem Noted Date 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 11/21/2022 Atherosclerosis of [place] 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 pectoris 11/22/2021 Diabetes mellitus without complication 0 11/22/2021 Pleural plaque due to asbestos exposure 09/27/2021 ILD (interstitial lung disease) 09/27/19 22 Atherosclerosis of aorta 08/02/2021 Hyperlipidemia, unspecified 12/15/2019 Primary osteoarthritis of both first car pometacarpal joints 05/11/2019 Prediabetes 04/26/2019 Overview: Per Prediabetes protocol History of colon polyps 12/15/2018 Chronic pain 06/29/2018 HTN, goal below 140/90 04/16/2018 Systolic ejection murmur 04/16/2018 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 04/16/2018 Controlled substance agreement signed S/P lumbar fusion 12/10/2016 Primary osteoarthritis of left knee 06/15 S/P lumbar microdiscectomy 12/28/2015 Lumbar radiculitis 12/13/2015 Osteoarthrosis, localized, primary, invo lving lower leg 03/30/2015 Overview: ICD-10 update of inactive term ICD-10 update of inactive term Statin intolerance 04/27/2014 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 Information booklet given to patient. documented as of this encounter (statuses as of 06/27/2023) Resolved Problems Problem Noted Date Resolved Date Ileus, postoperative 02/08/2022 05/01/2023 Pelvic abscess in male 02/08/2022 3 Infected hernioplasty mesh 02/04/202205/01 Protein-calorie malnutrition 11/22/2021 Acute respiratory failure due to COVID-19 202101/10/2022 SBO (small bowel obstruction) 08/05/2021 HTN, goal below 130/80 04/27/2014 8 BENIGN NEOPLASM LG BOWEL 08/14/2006 019 Overview: Colonoscopy 08/04/06--adenomatous--repeat 5 years Other ventral hernia without mention of obstruction or gangrene 08/16/2002 12/15/2018 documented as of this encounter (statuses as of 06/27/2023) Immunizations Name Administration Dates Next Due COVID-19 mRNA, LNP-s, No Pre serve, 2-Dose Series (CipherApps) 12/07/2020,11/16/2020 COVID-19, LNP-s, No Preserve , Justice-sucrose, Ages 12+ (CipherApps) 01/04/2022 Covid-19, Mrna, Lnp-s, Pf, B ivalent, 30 Mcg, IM, 12 yrs and above (CipherApps) 10/11/2022 Pneumococcal Conjugate Vacc, 13 Valent (Prevnar) 09/29/2012 Pneumococcal Polysaccharide PPV23 (Pneumovax) 06/07/2015 SEASONAL INFLUENZA, PF, 6 M & Above, IM , (FLULAVAL or FLUZONE) 06/29/2018 Season Influenza, Cell Culte r, 18+ Yrs, With Preserv (Flucelvax) 06/07/2015 Season Influenza, Quad, PF, Adjuvanted, 65+ Yrs, IM (FLUAD) 07/31/2020 Seasonal Influenza, Quadriva lent Hd (Fluzone Hd) 07/16/2022,05/29/2021 Seasonal Influenza, Quadriva lent, No Preserve, IM [...] drink = 0.6 oz pur e alcohol) Food Insecurity Answer Date Recorded Within the past 12 months, y ou worried that your food would run out before you got money to buy more. Never true 07/07/2019 Within the past 12 months, t he food you bought just didn't last and you didn't have money to get more. Never true 07/07/2019 Sex Assigned at Date Recorded Male 12/15/2019 2:37 PM E DT Job Start Date Occupation Industry Not on [...] (15 years old or older) No 02/09/20 22 Cognitive Status Response Date of Assessm ent Because of a physical, menta l, or emotional condition, do you have serious difficulty concentrating, remembering, or making decisions? (5 years old or older No 02/08/2022 documented as of this encounter Miscellaneous Notes * Telephone Encounter - Clarke Garcia - 06/27/2023 3:55 PM EDT Pt seen on 02/20/23 for Cpap recheck * Telephone Encounter - Risa Guerrero LPN - 11/21/2022 3:02 PM EST Order was received by [facility] and delivered * Telephone Encounter - Monica Smith LPN - 10/30/2022 10:18 AM EST LM asking pt to return call to review results and confirm DME as [facility] in [place]. * Telephone Encounter - RANDAL Suresh - 10/29/2022 1:40 PM EST Exercise oximetry performed on room air x 3 minutes. Pt ambulated 540 feet/ 165 meters. No rest periods were required. Lowest SPO2 on room air was 86%. Pt placed on 2 liters. Exercise oximetry performed on 2 liters x 3 minutes. Pt ambulated 630 feet/ 192 meters. No rest periods were required. Lowest SPO2 on 2 liters was 92%. Orders placed for oxygen. Clarke-- please move his appt to Dr. Grimes's scheduled for ILD. documented in this encounter Plan of Treatment Upcoming Encounters Date Type Specialty Care Team Description 08/01/2023 Hospital Encounter Surgery Kevon Vela, DO [address] [place] [id number] 08/01/2023 Surgery Surgery Kevon Vela, DO [address] [place] [phone] INJECTION SPINE LUMBAR CERVICAL OR THORACIC 10/15/2023 Office Visit Orthopedics Wilfredo Vázquez, DO [address] [place] [address] 10/22/2023 Office Visit Orthopedics Wilfredo Vázquez, DO [address] [place] [address] 10/29/2023 Office Visit Orthopedics Wilfredo Vázquez, DO [address] [place] [address] 11/27/2023 Office Visit Family Medicine Manav De La Vega, [address] [place] [address] 05/03/2024 Office Visit Family Medicine Manav De La Vega DO [address] [place] [address] Scheduled Procedures Name Priority Associated Diagnoses Date/Ti me INJECTION SPINE LUMBAR CERVICAL OR THORACIC Cervical radiculitis 08/01/2023 10:55 AM EST COLONOSCOPY FLEXIBLE PROXIMAL DIAGNOSTIC Recall History of colon polyps Health Maintenance Due Date Last Done Comments Diabetic Foot Exam 1958 Depression Screening 08/30/2022 08/30/2021 DTaP,Tdap,and Td Vaccines (2 - Td or Tdap) 10/05/2022 10/05/2012 Nash's Esophagus Surveilance 10/13/2022 10/13/2019, 08/26/2017, 07/20/2015, Additional history exists COVID-19 Vaccine ( season) 2023 10/11/2022, 01/04/2022, 12/07/2020, Additional history exists Influenza Vaccine (FLU shot) (#1) 2023 07/16/2022, 05/29/2021, 07/31/2020, Additional history exists HbA1c 10/01/2023 03/31/2023, 07/0 02/2022, 11/22/2021, Additional history exists Albumin/Creatinine Ratio 03/31/2024 03/31/2023 GFR 03/31/2024 03/31/2023, 07/0 02/2022, 02/09/2022, Additional history exists DIABETES-EYE EXAM 06/24/2024 06/24/2023 Pneumococcal Vaccine: 65+ Years Completed 06/07/2015, 09/29/2012 COLONOSCOPY-EVERY 5 YRS AGES 18-100 Discontinued 12/17/2016, 12/17/2016, 02/28/2011, Additional history exists Zoster Vaccines Completed 10/20/2020, 12/2019, 10/28/2011 GARDASIL-HPV IMMUNIZATION SERIES Aged Out No longer eligible based on patient's age to complete this topic Hepatitis B Aged Out No longer eligi ble based on patient's age to complete this topic MENINGOCOCCAL (MENACTRA/MENVEO) Aged Out No longer eligible based on patient's age to complete this topic documented as of this encounter Medical Devices Implanted Type Area 4Th Grade Math Teacher Device Identifier Shelf Expiration Date Model / Serial / Lot 15cm X 20cm Xenmatrix Surgical Graft, Rectangle Implanted:Qty : 1 on 01/29/2022 by [place] Bro[place] [facility] [place]/A: Abdomen CR BARD : DAVOL [id number] 09/11/2022 [id number] / [id number] / [id number] Trial Lead Kit 50 Cm 16 Contact Implanted:Qty : 1 on 10/20/2017 by Gloria Pardo MD at OR [facility] N/A: Spine Thoracic Sanitors [employer] : PAIN MGMT 08/08/2019 IL-2316-50 E / [id number] / Description:T9, 10,11 Clik X Mri [place] Implanted:Qty : 1 on 12/01/2017 by Gloria Pardo MD at OR [facility] N/A: Back [employer] : PAIN MGMT 07/15/2019 [facility] [id number] / / [id number] Device Fixate Suturing - [id number] Implanted:Qty : 1 on 05/02/2020 by Gloria Pardo MD at OR [facility] N/A: Back [employer] 03/21/2024 [id number] / / [id number] Trisha Thornton [id number] - [id number] Implanted:Qty : 1 on 02/08/[address] [facility] COOK : DIAGNOSTIC INTERVENTION [id number] 10/10/2024 [id number] / / [id number] documented as of this encounter Visit Diagnoses Diagnosis Chronic respiratory failure with hypoxia (HCC)- Primary Chronic respiratory failure ILD (interstitial lung disease) (HCC) Postinflammatory pulmonary fibrosis Cervical radiculitis Brachial neuritis or radiculitis nos [...] the patient have Health Care Power of Radiology Services Manager? No Full Code 12/13/2015 11:19 AM 12/16/2015 5:05 PM This order reflects the patients wishes and were consensually agreed upon. Question Answer Comments Discussion of Advance Directives occurred with: Patient Does the patient have a Living Will? No Does the patient have Health Care Power of Radiology Services Manager? No Care Teams Biofuels Manager Relationship Specialty Start Date End Date Manav De La Vega, [address] [place] [address] PCP - General Family Medicine 04/16/18 documented as of this encounter
--- OUTSIDE RECORDS SUMMARY | 2023-08-12 13:43 | External Medical Summary | Summary of Care ---
Author Name Unknown Organization [facility] Address [address] [address] Phone [phone] Care Team Providers Care Pharmaceutical Process Engineer Name Role Phone Ceferino Manav Jonesadeline Primary Care Provider Reason for Visit * Reason Onset Date Comments Immunizations Medication Administration 07/21/2023 Flu an d/or Pneumo Inj Encounter Details Date Type Department Care Team (Late st Contact Info) Description 07/21/2023 11:20 AM EST Immunization Ancillary [facility] [address] [facility] [place] [address] [facility] [address] [facility] [place] [address] Need for prophylactic vaccination and inoculation against influenza* Allergies Active Allergy Reactions Criticality Noted Date Comments Codeine Itching 05/20/2012 adverse reactions In large amounts only Gluten Itching 05/29/2005 Breaking out in blisters Gluten Meal Low 11/28/2022 Other reaction(s): rash Iodine Itching 02/28/2011 oral Atorvastatin Calcium Muscle pain 02/21/2014 Meloxicam Renal complications Medium 09/24/2017 Penicillins Rash 08/16/2002 Tramadol Hcl 08/07/2011 Bad stomach problems documented as of this encounter (statuses as of 07/21/2023) Medications Medication Sig Dispensed Refills Start Date [...] Other (pain). 120 Tablet 0 07/17/2023 Active documented as of this encounter (statuses as of 07/21/2023) Active Problems Problem Noted Date Diagnosed Date 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 11/21/2022 Atherosclerosis of [place] co ronary artery without angina pectoris 11/22/2021 [...] as of this encounter (statuses as of 07/21/2023) Resolved Problems Problem Noted Date Diagnosed Date [...] as of this encounter (statuses as of 07/21/2023) Immunizations Name Administration Dates Next Due COVID-19 mRNA, LNP-s, No Pre serve, 2-Dose Series (1000 Corks) 12/07/2020,11/16/2020 COVID-19, LNP-s, No Preserve , Justice-sucrose, [...] No 02/08/2022 documented as of this encounter Patient Instructions * Patient Instructions* Acacia Taylor LPN - 07/21/2023 11:11 AM EST ~~PATIENT INSTRUCTIONS FOR FLU SHOT~~ Possible side effects of influenza vaccine, (flu shot), are usually mild and include: 1. Soreness or redness at injection site 2. Low grade fever 3. Body aches You may use Tylenol/Acetaminophen as needed for these symptoms. LET YOUR DOCTOR KNOW IMMEDIATELY IF YOU HAVE DIFFICULTY BREATHING OR SWALLOWING, EXPERIENCE ITCHINGOF FEET OR HANDS, HAVE SWELLING OF EYES, FACE OR INSIDE OF NOSE. documented in this encounter Progress Notes * Acacia Taylor LPN - 07/21/2023 11:11 AM EST PRE - ADMINISTRATION DOCUMENTATION Are you experiencing any cold symptoms or fever? No Have you had Guillain-Kent Syndrome (an illness that causes paralysis) within the last 6 weeks? No Have you had the flu shot in the past? YES Have you ever had a reaction to the flu shot? No Acacia Taylor LPN, 07/21/2023 11:11 AM Immunization Administration Documentation Time Out Procedure Performed: Yes Patient Identified (Ask Name/Date of ): Yes Does the patient have a fever greater than 101 degrees today? No Patient allergic to latex? No VFC Stock: No Immunization(s) verified: Yes, Immunization Name: Flu, VIS Sheet(s) given: Yes Verified Side and Site: Yes Verified Shot(s) with Parent(s)/Patient: Yes documented in this encounter Plan of Treatment Upcoming Encounters Date Type Department Care Team (Latest Contact Info) Description 08/18/2023 9:15 AM EST Hospital Encounter [facility] [address] [place] [phone] Kevon Vela, DO [address] [place] [address] 08/18/2023 9:15 AM EST - 08/18/2023 9:40 AM EST Surgery [facility] [address] [place] [phone] Kevon Vela, DO [address] [place] [address] INJECTION SPINE LUMBAR CERVICAL OR THORACIC 10/15/2023 9:00 AM EST Office Visit [facility] [address] [place] [address] Wilfredo Vázquez, DO [address] [place] [address] 10/22/2023 9:00 AM EST Office Visit [facility] [address] [place] [address] Wilfredo Vázquez, DO [address] [place] [address] 10/29/2023 9:00 AM EST Office Visit [facility] [address] [place] [address] Wilfredo Vázquez, DO [address] [place] [address] 11/27/2023 6:00 PM EDT Office Visit [facility] [address] [place] [address] Manav De La Vega, DO [address] [place] [address] 05/03/2024 12:00 PM EDT Office Visit [facility] [address] [place] [address] Manav De La Vega, DO [address] [place] [address] Scheduled Procedures Name Priority Associated Diagnoses Date/Ti me INJECTION SPINE LUMBAR CERVICAL OR THORACIC Cervical radiculitis 08/18/2023 9:15 AM EST COLONOSCOPY FLEXIBLE PROXIMAL DIAGNOSTIC Recall [...] this encounter Medical Devices Implanted Type Area Measurer Machine Device Identifier Shelf Expiration Date Model / Serial / Lot 15cm X 20cm Xenmatrix Surgical Graft, Rectangle Implanted:Qty : 1 on 01/29/2022 [place] [facility] [place] N/A: Abdomen CR BARD : DAVOL [id number] 09/11/2022 [id number] / [id number] / [id number] Trial Lead Kit 50 Cm 16 Contact Implanted:Qty : 1 on 10/20/2017 by Gloria Pardo MD at OR [facility] N/A: Spine Thoracic [employer] : PAIN MGMT 08/08/2019 MI-2316-50 E / [id number] / Description:T9, 10,11 Clik X Mri [place] Implanted:Qty : 1 on 12/01/2017 by Gloria Pardo MD at OR [facility] N/A: Back [employer] : PAIN MGMT 07/15/2019 [id number] / / [id number] Device Fixate Suturing - [id number] Implanted:Qty : 1 on 05/02/2020 by Gloria Pardo MD at OR [facility] N/A: Back [employer] 03/21/2024 [id number] / / [id number] Trisha Thornton [id number] - [id number] Implanted:Qty : 1 on 02/08/2022 at [facility] COOK : DIAGNOSTIC INTERVENTION [id number] 10/10/2024 [id number] / / [id number] documented as of this encounter Visit Diagnoses Diagnosis Need for prophylactic vaccination and inoculation against influenza- Primary Cervical radiculitis Brachial neuritis or radiculitis nos [...] the patient have Health Care Power of Hospice Social Worker? No Full Code 12/13/2015 11:19 AM 12/16/2015 5:05 PM This order reflects the patients wishes and were consensually agreed upon. Question Answer Comments Discussion of Advance Directives occurred with: Patient Does the patient have a Living Will? No Does the patient have Health Care Power of Hospice Social Worker? No Care Teams Pharmaceutical Process Engineer Relationship Specialty Start Date End Date Manav De La Vega DO [address] [place] [address] PCP - General Family Medicine 04/16/18 documented as of this encounter
--- OUTSIDE RECORDS SUMMARY | 2023-08-12 13:43 | External Medical Summary | Summary of Care ---
Author Name Unknown Organization [facility] Address [address] [facility] [place] [address] Phone [phone] Care Team Providers Care Drier Take Off Tender Name Role Phone Manav De La Vega DO Primary Care Provider Reason for Visit * Reason Onset Date Comments Referral Requested by Specialist 07/24/2023 Encounter Details Date Type Department Care Team (Late st Contact Info) Description 07/24/2023 Telephone Family Practice [facility] [address] [place] [address] Manav De La Vega DO [address] [place] [address] Referral Requested by Specialist Allergies Active Allergy Reactions Criticality Noted Date Comments Codeine Itching 05/20/2012 adverse reactions In large amounts only Gluten Itching 05/29/2005 Breaking out in blisters Gluten Meal Low 11/28/2022 Other reaction(s): rash Iodine Itching 02/28/2011 oral Atorvastatin Calcium Muscle pain 02/21/2014 Meloxicam Renal complications Medium 09/24/2017 Penicillins Rash 08/16/2002 Tramadol Hcl 08/07/2011 Bad stomach problems documented as of this encounter (statuses as of 07/24/2023) Medications Medication Sig Dispensed Refills Start Date [...] as of this encounter (statuses as of 07/24/2023) Active Problems Problem Noted Date Diagnosed Date 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 11/21/2022 Atherosclerosis of [place] ronary artery without angina pectoris 11/22/2021 [...] as of this encounter (statuses as of 07/24/2023) Resolved Problems Problem Noted Date Diagnosed Date [...] as of this encounter (statuses as of 07/24/2023) Immunizations Name Administration Dates Next Due COVID-19 mRNA, LNP-s, No Pre serve, 2-Dose Series (Leo) 12/07/2020,11/16/2020 COVID-19, LNP-s, No Preserve , Justice-sucrose, Ages 12+ (Leo) 01/04/2022 Covid-19, Mrna, Lnp-s, Pf, B ivalent, [...] encounter Miscellaneous Notes * Telephone Encounter - Glory Donnelly - 07/24/2023 11:49 AM EST Patient was seen in the ortho [facility] on 07/23 for a RT hip pain, please place a referral for this visitthank you documented in this encounter Plan of Treatment Upcoming Encounters Date Type Department Care Team (Latest Contact Info) Description 07/29/2023 8:30 AM EST Office Visit Orthopaedics [facility] [address] [place] [address] Wilfredo Vázquez, DO [address] [place] [address] 08/18/2023 9:15 AM EST Hospital Encounter [facility] [address] [place] [phone] Kevon Vela, [address] [place] [address] 08/18/2023 9:15 AM EST - 08/18/2023 9:40 AM EST Surgery [facility] [address] [place] [address] Kevon Vela, DO [address] [place] [phone] INJECTION SPINE LUMBAR CERVICAL OR THORACIC 10/15/2023 9:00 AM EST Office Visit [facility] [address] [place] [address] Wilfredo Vázquez, DO [address] [place] [address] 10/22/2023 9:00 AM EST Office Visit [facility] [address] [place] [address] Wilfredo Vázquez, DO [address] [place] [address] 10/29/2023 9:00 AM EST Office Visit [facility] [address] [place] [address] Wilfredo Vázquez, DO [address] [place] [address] 11/27/2023 6:00 PM EDT Office Visit [facility] [address] [place] [address] Manav De La Vega, DO [address] [place] [address] 05/03/2024 12:00 PM EDT Office Visit [facility] [address] [place] [address] Manav De La Vega, DO [address] [place] [address] Scheduled Procedures Name Priority Associated Diagnoses Date/Ti [...] this encounter Medical Devices Implanted Type Area Survey Research Professor Device Identifier Shelf Expiration Date Model / Serial / Lot 15cm X 20cm Xenmatrix Surgical Graft, Rectangle Implanted:Qty : 1 on 01/29/2022 by [place] Broderick [place] [facility] [place] N/A: Abdomen CR BARD : DAVOL [id number] 09/11/2022 [id number] / [id number] / [id number] Trial Lead Kit 50 Cm 16 Contact Implanted:Qty : 1 on 10/20/2017 by Gloria Pardo MD at OR [facility] N/A: Spine Thoracic vitalclip : PAIN MGMT 08/08/2019 [id number] E / [id number] / Description:T9, 10,11 Clik X Mri [place] Implanted:Qty : 1 on 12/01/2017 by Gloria Pardo MD at [facility] N/A: Back vitalclip : PAIN MGMT 07/15/2019 [id number] / / [id number] Device Fixate Suturing - [id number] Implanted:Qty : 1 on 05/02/2020 by Gloria Pardo MD at OR [facility] N/A: Back Programeter 03/21/2024 [id number] / / [id number] Trisha Ryan Thornton [id number] - [id number] Implanted:Qty : 1 on 02/08/2022 at [facility] COOK : DIAGNOSTIC INTERVENTION [id number] 10/10/2024 [id number] / / [id number] documented as of this encounter Advance Directives Latest Code Status [...] the patient have Health Care Power of Oracle Soa Architect? No Full Code 12/13/2015 11:19 AM 12/16/2015 5:05 PM This order reflects the patients wishes and were consensually agreed upon. Question Answer Comments Discussion of Advance Directives occurred with: Patient Does the patient have a Living Will? No Does the patient have Health Care Power of Oracle Soa Architect? No Care Teams Drier Take Off Tender Relationship Specialty Start Date End Date Manav De La Vega DO [address] [place] [address] PCP - General Family Medicine 04/16/18 documented as of this encounter
--- OUTSIDE RECORDS SUMMARY | 2023-08-12 13:43 | External Medical Summary | Summary of Care ---
Author Name Unknown Organization [facility] Address [address] [facility] [address] Phone [phone] Care Team Providers Care Card Decorator Name Role Phone Manav De La Vega DO Primary Care Provider Encounter Details Date Type Department Care Team Description 06/25/2023 Orders Only Family Practice [facility] [address] [place] [address] Manav De La Vega DO [address] [place] [address] Allergies Active Allergy Reactions Severity Noted Date Comments Codeine Itching 05/20/2012 adverse reactions In large amounts only Gluten Itching 05/29/2005 Breaking out in blisters Gluten Meal Low 11/28/2022 Other reaction(s): rash Iodine Itching 02/28/2011 oral Atorvastatin Calcium Muscle pain 02/21/2014 Meloxicam Renal complications Medium 09/24/2017 Penicillins Rash 08/16/2002 Tramadol Hcl 08/07/2011 Bad stomach problems documented as of this encounter (statuses as of 06/25/2023) Medications Medication Sig Dispensed Refills Start Date [...] mouth every 6 hours as needed for pain. 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 11/21/2022 Atherosclerosis of [place] 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 pectoris 11/22/2021 [...] as of this encounter (statuses as of 06/25/2023) Resolved Problems Problem Noted Date Resolved Date [...] as of this encounter (statuses as of 06/25/2023) Immunizations Name Administration Dates Next Due COVID-19 mRNA, LNP-s, No Pre serve, 2-Dose Series (Clixtr) 12/07/2020,11/16/2020 COVID-19, LNP-s, No Preserve , Justice-sucrose, Ages 12+ (Clixtr) 01/04/2022 Covid-19, Mrna, Lnp-s, Pf, B ivalent, 30 Mcg, IM, 12 yrs and above (Clixtr) 10/11/2022 Pneumococcal Conjugate Vacc, 13 Valent (Prevnar) [...] No 02/08/2022 documented as of this encounter Plan of Treatment Upcoming Encounters Date Type Specialty Care Team Description 08/01/2023 Hospital Encounter Surgery Kevon Vela, DO [address] [place] [phone] 08/01/2023 Surgery Surgery Kevon Vela, DO [address] [place] [phone] INJECTION SPINE LUMBAR CERVICAL OR THORACIC 10/15/2023 Office Visit Orthopedics Wilfredo Vázquez, DO [address] [place] [address] 10/22/2023 Office Visit Orthopedics Wilfredo Vázquez, DO [address] [place] [address] 10/29/2023 Office Visit Orthopedics Wilfredo Vázquez, DO [address] [place] [address] 11/27/2023 Office Visit Family Medicine Manav De La Vega, DO [address] [place] [address] 05/03/2024 Office Visit Family Manav Sánchez, DO [address] [place] [address] Scheduled Procedures Name Priority Associated Diagnoses Date/Ti me INJECTION SPINE LUMBAR CERVICAL OR THORACIC Cervical radiculitis 08/01/2023 10:55 AM EST COLONOSCOPY FLEXIBLE PROXIMAL DIAGNOSTIC Recall History of colon polyps Health Maintenance Due Date Last Done Comments Nash's Esophagus Surveilance 1939 Diabetic Foot Exam 1957 Depression Screening 08/30/2022 08/30/2021 DTaP,Tdap,and Td Vaccines (2 - Td or Tdap) 10/05/2022 10/05/2012 COVID-19 Vaccine (5 - 2022- season) 2023 10/11/2022, 01/04/2022, 12/07/2020, Additional history exists Influenza Vaccine (FLU shot) (#1) 2023 07/16/2022, 05/29/2021, 07/31/2020, Additional history exists HbA1c 10/01/2023 03/31/2023, 07/0 02/2022, 11/22/2021, Additional history exists Albumin/Creatinine Ratio 03/31/2024 03/31/2023 GFR 03/31/2024 03/31/2023, 07/0 02/2022, 02/09/2022, Additional history exists DIABETES-EYE EXAM 06/25/2024 06/24/2023 Pneumococcal Vaccine: 65+ Years Completed 06/07/2015, 09/29/2012 COLONOSCOPY-EVERY 5 YRS AGES 18-100 Discontinued 12/17/2016, 12/17/2016, 02/28/2011, Additional history exists Zoster Vaccines Completed 10/20/2020, 1212/2019, 10/28/2011 GARDASIL-HPV IMMUNIZATION SERIES Aged Out No longer eligible based on patient's age to complete this topic Hepatitis B Aged Out No longer eligi ble based on patient's age to complete this topic MENINGOCOCCAL (MENACTRA/MENVEO) Aged Out No longer eligible based on patient's age to complete this topic documented as of this encounter Medical Devices Implanted Type Area Clinical Rehabilitation Aide Device Identifier Shelf Expiration Date Model / Serial / Lot 15cm X 20cm Xenmatrix Surgical Graft, Rectangle Implanted:Qty : 1 on 01/29/2022 by Tom Broderick MD at OR [facility] Graft N/A: Abdomen CR BARD : DAVOL [id number] 09/11/2022 [id number] / [id number] / [id number] Trial Lead Kit 50 Cm 16 Contact Implanted:Qty : 1 on 10/20/2017 by Gloria Pardo MD at OR [facility] N/A: Spine Thoracic Edustation.me : PAIN MGMT 08/08/2019 [id number] E / [id number] / Description:T9, 10,11 Clik X Mri [place] Implanted:Qty : 1 on 12/01/2017 by Gloria Pardo MD at OR [facility] N/A: Back Edustation.me : PAIN MGMT 07/15/2019 [facility] [place] [id number] / / [id number] Device Fixate Suturing - [id number] Implanted:Qty : 1 on 05/02/2020 by Gloria Pardo MD at OR [facility] N/A: Back ECS Tuning 03/21/2024 [id number] 10 / / [id number] Trisha Ryan Thornton [id number] - [id number] Implanted:Qty : 1 on 02/08/2022 at [facility] COOK : DIAGNOSTIC INTERVENTION [id number] 10/10/2024 [id number] / / [id number] documented as of this encounter Procedures Procedure Name Priority Date/Time Associated Diagnosis Comments DIABETIC EYE EXAM Routine 06/24/2023 documented in this encounter Results * DIABETIC EYE EXAM (06/24/2023) 06/24/2023 History Per Patient OTHER OUTSIDE LAB (SEE SCANNED REPORT) documented in this encounter Advance Directives Latest [...] the patient have Health Care Power of Tassel Clipper? No Full Code 12/13/2015 11:19 AM 12/16/2015 5:05 PM This order reflects the patients wishes and were consensually agreed upon. Question Answer Comments Discussion of Advance Directives occurred with: Patient Does the patient have a Living Will? No Does the patient have Health Care Power of Tassel Clipper? No Care Teams Card Decorator Relationship Specialty Start Date End Date Manav De La Vega DO [address] [place] [address] PCP - General Family Medicine 04/16/18 documented as of this encounter
--- OUTSIDE RECORDS SUMMARY | 2023-08-12 13:43 | External Medical Summary | Summary of Care ---
Author Name Unknown Organization [facility] Address [address] [facility] [place] [address] Phone [phone] Care Team Providers Care Boiler Technician Name Role Phone Manav De La Vega DO Primary Care Provider Reason for Referral * Evaluate & Treat - Unlimited Visits (Within 3 days (urgent)) - Authorized Specialty Diagnoses / Procedures Referred By Josh perera Referred To Contact Orthopaedic Surgery / Orthopedics Diagnoses Hip pain, right Manav De La Vega DO [address] [place] [address] Referral ID Status Reason Start Date Expiration Date Visits Requested Visits Authorized [id number] Authorized Specialty Services Required 3 [phone] Question Answer Referral Priority Within 3 days (urgent) Where should this appointment be scheduled? [facility] What body part is the patient being seen for? Hip What condition is the patient being seen for? Sprain/Strain/Tear/Other Comments Right hip pain Reason for Visit * Reason Onset Date Comments Referral Requested by Specialist 07/24/2023 Encounter Details Date Type Department Care Team (Late st Contact Info) Description 07/24/2023 Telephone Family Practice [facility] [address] [place] [address] Manav De La Vega DO [address] [place] [address] Referral Requested by Specialist Allergies Active Allergy [...] as of this encounter (statuses as of 07/25/2023) Medications Medication Sig Dispensed Refills Start Date [...] as of this encounter (statuses as of 07/25/2023) Active Problems Problem Noted Date Diagnosed Date 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 11/21/2022 Atherosclerosis of [place] co ronary artery without angina pectoris 11/22/2021 Diabetes mellitus without complication 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 ILD (interstitial lung disease) 09/27/2021 Atherosclerosis of [...] as of this encounter (statuses as of 07/25/2023) Resolved Problems Problem Noted Date Diagnosed Date [...] as of this encounter (statuses as of 07/25/2023) Immunizations Name Administration Dates Next Due COVID-19 [...] as of this encounter Miscellaneous Notes * Addendum Note - Isabelle Gray LPN - 07/25/2023 8:45 AM ESTAddended by: ISABELLE GRAY on: 07/25/2023 08:45 AM Modules accepted: Orders * Telephone Encounter - Glory Donnelly - 07/24/2023 11:49 AM EST Patient was seen in the [facility] on 07/23 for a RT hip pain, please place a referral for this visitthank you documented in this encounter Plan of Treatment Upcoming Encounters Date Type Department Care Team (Latest Contact Info) Description 07/29/2023 8:30 AM EST Office Visit [facility] [address] [place] [address] Wilfredo Vázquze, DO [address] [place] [address] 08/18/2023 9:15 AM EST Hospital Encounter [facility], Operating Room [facility] [address] [place] [address] Kevon Vela, DO [address] [place] [address] 08/18/2023 9:15 AM EST - 08/18/2023 9:40 AM EST Surgery [facility], Operating Room [facility] [address] [place] [phone] Kevon Vela, DO [address] [place] [address] INJECTION SPINE LUMBAR CERVICAL OR THORACIC 10/15/2023 9:00 AM EST [facility] [address] [place] [address] Wilfredo Vázquez, DO [address] [place] [address] 10/22/2023 9:00 AM EST Office Visit [facility] [address] [place] [address] Wilfredo Vázquez, DO [address] [place] [address] 10/29/2023 9:00 AM EST Office Visit Orthopaedics [facility] [address] [place] [address] Wilfredo Vázquez, DO [address] [place] [address] 11/27/2023 6:00 PM EDT Office Visit [facility] [address] [place] [address] Manav De La Vega, DO [address] [place] [address] 05/03/2024 12:00 PM EDT Office Visit [facility] [address] [place] [address] Manav De La Vega, DO [address] [place] [address] Scheduled Procedures Name Priority Associated Diagnoses Date/Ti me INJECTION SPINE LUMBAR CERVICAL OR THORACIC Cervical radiculitis 08/18/2023 9:15 AM EST COLONOSCOPY FLEXIBLE PROXIMAL DIAGNOSTIC Recall History of colon polyps Scheduled Referrals Name Type Priority Associated Diagnoses Order Schedule ORTHOPAEDICS REFERRAL OP Referral Within 3 days (urgent) Hip pain, right Ordered: 07/25/2023 Health Maintenance Due Date Last Done Comments Diabetic Foot Exam 1957 Hepatitis B (1 of 3 - Risk 3-dose series) 1999 Depression Screening 08/30/2022 08/30/2021 DTaP,Tdap,and Td Vaccines (2 - Td or Tdap) 10/05/2022 10/05/2012 Nash's Esophagus Surveilance 10/13/2022 10/13/2019, 08/26/2017, 07/20/2015, Additional history exists COVID-19 Vaccine ( - season) 2023 10/11/2022, 01/04/2022, 12/07/2020, Additional history exists HbA1c 10/01/2023 03/31/2023, 02/2022, 11/22/2021, Additional history exists Albumin/Creatinine Ratio 03/31/2024 03/31/2023 GFR 03/31/2024 03/31/2023, 02/2022, 02/09/2022, Additional history exists Diabetic Eye [...] this encounter Medical Devices Implanted Type Area End User Consultant Device Identifier Shelf Expiration Date Model / Serial / Lot 15cm X 20cm Xenmatrix Surgical Graft, Rectangle Implanted:Qty : 1 on 01/29/2022 [place] Broderick [place] [facility] N/A: Abdomen CR BARD : DAVOL [id number] 09/11/2022 [id number] / [id number] / [id number] Trial Lead Kit 50 Cm 16 Contact Implanted:Qty : 1 on 10/20/2017 by Gloria Pardo MD at OR [facility] N/A: Spine Thoracic powervault : PAIN MGMT 08/08/2019 [facility] [place]16-[place] E / [id number] / Description:T9, 10,11 Clik X Mri [place] Implanted:Qty : 1 on 12/01/2017 by Gloria Pardo MD at OR [facility] N/A: Back powervault : PAIN MGMT 07/15/2019 [id number] / / [id number] Device Fixate Suturing - [id number] Implanted:Qty : 1 on 05/02/2020 by Gloria Pardo MD at OR [facility] N/A: Back TestCred 03/21/2024 [id number] 10 / / [id number] Trisha Thornton [id number] - [id number] Implanted:Qty : 1 on 02/08/2022 at [facility] COOK : DIAGNOSTIC INTERVENTION [id number] 10/10/2024 [id number] / / [id number] documented as of this encounter Visit Diagnoses Diagnosis Hip pain, right- Primary Pain in joint, pelvic region and thigh Cervical radiculitis Brachial neuritis or radiculitis nos [...] the patient have Health Care Power of Knowledge Management Advisor? No Full Code 12/13/2015 11:19 AM 12/16/2015 5:05 PM This order reflects the patients wishes and were consensually agreed upon. Question Answer Comments Discussion of Advance Directives occurred with: Patient Does the patient have a Living Will? No Does the patient have Health Care Power of Knowledge Management Advisor? No Care Teams Boiler Technician Relationship Specialty Start Date End Date Manav De La Vega DO [address] [place] [address] PCP - General Family Medicine 04/16/18 documented as of this encounter
--- OUTSIDE RECORDS SUMMARY | 2023-08-12 13:43 | External Medical Summary | Summary of Care ---
Author Name Unknown Organization [facility] Address [address] [facility] [place] [address] Phone [phone] Care Team Providers Care Towel Hemmer Name Role Phone Mat De La Vegaleeanne Jonesadeline Primary Care Provider Reason for Referral * Evaluate & Treat - Unlimited Visits (Within 10 days (routine)) - Authorized Specialty Diagnoses / Procedures Referred By Contlucía t Referred To Contact Physical Therapy / Physical Medicine And Rehab Diagnoses Hip pain, right Low back strain, initial encounter Alecia Stevens MD [address] [place] [address] Referral ID Status Reason Start Date Expiration Date Visits Requested Visits Authorized [id number] Authorized Specialty Services Required 07/23/[phone] Question Answer Referral Priority Within 10 days (routine) Where should this appointment be scheduled? [facility] Comments Suspect QL and lumbar paraspinal strain Does have chronic low back Reason for Visit * Reason Comments NEW PATIENT Right hip Encounter Details Date Type Department Care Team (Late st Contact Info) Description 07/23/2023 9:30 AM EST Office Visit Orthopaedics [facility] [address] [place] [address] Alecia Stevens MD [address] [place] [address] Hip pain, right*; Low back strain, initial encounter Allergies Active Allergy Reactions Criticality Noted Date Comments Codeine Itching 05/20/2012 adverse reactions In large amounts only Gluten Itching 05/29/2005 Breaking out in blisters Gluten Meal Low 11/28/2022 Other reaction(s): rash Iodine Itching 02/28/2011 oral Atorvastatin Calcium Muscle pain 02/21/2014 Meloxicam Renal complications Medium 09/24/2017 Penicillins Rash 08/16/2002 Tramadol Hcl 08/07/2011 Bad stomach problems documented as of this encounter (statuses as of 07/23/2023) Medications Medication Sig Dispensed Refills Start Date [...] Delayed Release (Protonix)Indicatio ns:High grade dysplasia of Caedt's epithelium Take 1 Tablet by mouth in [...] as of this encounter (statuses as of 07/23/2023) Active Problems Problem Noted Date Diagnosed Date 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 11/21/2022 Atherosclerosis of sho[place] co ronary artery without angina pectoris 11/22/2021 [...] Statin intolerance 04/27/2014 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 Information booklet given to patient. documented as of this encounter (statuses as of 07/23/2023) Resolved Problems Problem Noted Date Diagnosed Date [...] as of this encounter (statuses as of 07/23/2023) Immunizations Name Administration Dates Next Due COVID-19 [...] as of this encounter Progress Notes * Alecia Stevens MD - 07/23/2023 9:26 AM EST Michele Levy is a 82 year old male who presents for consultation to [facility] for right hip injury/pain. Consult requested by Self. Michele Levy is here unaccompanied History: Chief Complaint Patient presents with NEW PATIENT Right hip Nursing Notes: Nadia Hernandez, MED ASSIST 07/23/23 0854 Sign at exiting of workspace Pt presents today for right hip pain, about 1 week ago patient was using the leaf blower and twisted the wrong way causing hip pain. Michele Levy is a 82 year old male who presents to the [facility] urgent care today with a chief complaint of right hip pain He is here unaccompanied. He reports that right hip pain started about a week ago when he was blowing leaves. He points to the right lumbar spine and SI joint as the location of his "hip" pain. Pain radiates slightly down the lateral thigh but not past the knee. There is no new associated numbness or tingling. He does have some chronic lumbar spine issues with a spinal stimulator in place for chronic right lower extremity nerve issues No groin pain Reports that his pain is typically get better after a day or 2 but this 1 has been sticking around for a week Review of systems: All others negative except those noted above in HPI. Review of patient's allergies indicates: Allergen Reactions Meloxicam Renal complications Codeine Itching adverse reactions In large amounts only Gluten Itching Breaking out in blisters Iodine Itching oral Lipitor [Atorvastatin Calcium] Muscle pain Penicillins Rash Ultram [Tramadol Hcl] Bad stomach problems Gluten Meal Other reaction(s): rash Current Outpatient Medications Medication Sig Dispense Refill [...] needed for Other (pain). 120 Tablet 0 No current facility-administered medications for this visit. Past Medical History: Diagnosis Date CADET'S ESOPHAGUS resolved with surgery BENIGN NEOPLASM LG BOWEL 08/14/2006 Colonoscopy 08/04/06--adenomatous--repeat 5 years Celiac disease 11/20/06 well controlled with diet Dermatitis herpetiformis gerd ILD (interstitial lung disease) (HCC) Myocardial infarction (HCC) 06/2011 NSTEMI, multivessel disease by cath, medical Rx Other ventral hernia without mention of obstruction or gangrene 08/16/2002 Pneumonia Pulmonary arterial hypertension (HCC) Patient Active Problem List Diagnosis Code ADVANCE DIRECTIVE INFORMATION Celiac disease K90.0 Opioid use agreement exists Z79.891 Osteoarthritis of hand M19.049 Dermatitis herpetiformis L13.0 Chronic ischemic heart disease I25.9 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.711 Statin intolerance Z78.9 Osteoarthrosis, localized, [...] asbestos exposure J92.0 ILD (interstitial lung disease) (HCC) J84.9 Atherosclerosis of sho[place] coronary artery without angina pectoris I25.10 Diabetes mellitus without complication (HCC) E11.9 Spinal cord stimulator status Z96.89 Old myocardial infarct I25.2 Past Surgical History: Procedure Laterality Date COLONOSCOPY, DIAGNOSTIC (RECTUM) 12/17/2016 diverticulosis, repeat 5 yrs/COLONOSCOPY FLEXIBLE PROXIMAL DIAGNOSTIC performed by Angel Douglass MD at ENDOSCOPY [facility] COLONOSCOPY, GI REFERRAL OP 08/04/06 adenomatous--repeat 5 years COLORECTAL CANCER SCREEN; NOT AT RISK 02/28/11 repeat in 5 years EGD, FLEXIBLE, DIAGNOSTIC 04/26/2013 UPPER GI ENDOSCOPY DIAGNOSTIC performed by Paco Nowak MD at [place] [facility] EGD, FLEXIBLE, DIAGNOSTIC 07/12/2013 UPPER GI ENDOSCOPY DIAGNOSTIC performed by Paco Nowak MD at [place] [facility] EGD, FLEXIBLE, DIAGNOSTIC 01/04/2014 ESOPHAGOGASTRODUODENOSCOPY (EGD), FLEXIBLE, TRANSORAL, DIAGNOSTIC performed by Angel Douglass MD at ENDOSCOPY [facility] EGD, FLEXIBLE, DIAGNOSTIC 06/30/2014 normal bx, repeat 1 yr/ESOPHAGOGASTRODUODENOSCOPY (EGD), FLEXIBLE, TRANSORAL, DIAGNOSTIC performed by Angel Douglass MD at ENDOSCOPY [facility] EGD, FLEXIBLE, DIAGNOSTIC 07/20/2015 inflammation on bx, HH, repeat 2 yrs/ESOPHAGOGASTRODUODENOSCOPY (EGD), FLEXIBLE, TRANSORAL, DIAGNOSTIC performed by Angel Douglass MD at ENDOSCOPY [facility] EGD, FLEXIBLE, DIAGNOSTIC 08/26/2017 Barretts, hiatal hernia, repeat 2 yrs/ESOPHAGOGASTRODUODENOSCOPY (EGD), FLEXIBLE, TRANSORAL, DIAGNOSTIC performed by Angel Douglass MD at ENDOSCOPY [facility] EGD, FLEXIBLE, DIAGNOSTIC 10/13/2019 Barretts/ESOPHAGOGASTRODUODENOSCOPY (EGD), FLEXIBLE, TRANSORAL, DIAGNOSTIC performed by Angel Douglass MD at ENDOSCOPY [facility] EGD, FLEXIBLE, W/BIOPSY 11/20/06 paths-normal EVAL NEUROSTIM PULSE GEN, W/ REPROGRAM N/A 10/20/2017 NEUROSTIMULATOR PULSE GENERATOR/ TRANSMITTER, WITH INTRAOPERATIVE OR SUBSEQUENT PROGRAMMING performed by Gloria Pardo MD at OR [facility] EVAL NEUROSTIM PULSE GEN, W/ REPROGRAM N/A 12/01/2017 NEUROSTIMULATOR PULSE GENERATOR/ TRANSMITTER, WITH INTRAOPERATIVE OR SUBSEQUENT PROGRAMMING performed by Gloria Pardo MD at OR [facility] EVAL NEUROSTIM PULSE GEN, W/ REPROGRAM N/A 05/02/2020 NEUROSTIMULATOR PULSE GENERATOR/ TRANSMITTER, WITH INTRAOPERATIVE OR SUBSEQUENT PROGRAMMING performed by Gloria Pardo MD at OR [facility] IMPLANT EPIDURAL NEUROELECTRODES N/A 10/20/2017 PERCUTANEOUS IMPLANTATION NEUROSTIMULATOR EPIDURAL performed by Gloria Pardo MD at OR [facility] IMPLANT EPIDURAL NEUROELECTRODES N/A 12/01/2017 PERCUTANEOUS IMPLANTATION NEUROSTIMULATOR EPIDURAL performed by Gloria Pardo MD at OR [facility] IMPLANT EPIDURAL NEUROELECTRODES N/A 05/02/2020 PERCUTANEOUS IMPLANTATION NEUROSTIMULATOR EPIDURAL performed by Gloria Pardo MD at OR [facility] IMPLANT SPINAL NEURORECEIVER N/A 12/01/2017 INSERTION OR REPLACEMENT SPINAL NEUROSTIMULATOR GENERATOR performed by Gloria Pardo MD at OR [facility] IMPLANT SPINAL NEURORECEIVER N/A 05/02/2020 INSERTION OR REPLACEMENT SPINAL NEUROSTIMULATOR GENERATOR performed by Gloria Pardo MD at OR [facility] INFORMATION Bilateral knee arthroscopy INFORMATION Bilateral shoulder arthroscopy INFORMATION 12/01/2017 Precision Montage Neurostimulator model# SC-1200 leads# [id number] INJECT DX/THER SUBSTANCE INTERLAMINAR CERVICAL/THORACIC W IMAGE GUIDE 09/14/2020 INJECTION SPINE LUMBAR CERVICAL OR THORACIC performed by Cortez Heart DO at OR [facility] INJECT DX/THER SUBSTANCE INTERLAMINAR LUMBAR/SACRAL W IMAGE GUIDE N/A 10/25/2016 INJECTION SPINE LUMBAR OR SACRAL performed by Gloria Pardo MD at OR [facility] INJECT DX/THER SUBSTANCE INTERLAMINAR LUMBAR/SACRAL W IMAGE GUIDE N/A 01/17/2017 INJECTION SPINE LUMBAR OR SACRAL performed by Gloria Pardo MD at OR [facility] INJECT DX/THER SUBSTANCE INTERLAMINAR LUMBAR/SACRAL W IMAGE GUIDE N/A 06/23/2017 INJECTION SPINE LUMBAR OR SACRAL performed by Gloria Pardo MD at OR [facility] INJECT DX/THER SUBSTANCE INTERLAMINAR LUMBAR/SACRAL W IMAGE GUIDE N/A 08/29/2017 INJECTION SPINE LUMBAR OR SACRAL performed by Gloria Pardo MD at OR [facility] IR ASPIRATION ABSCESS/COLLECTION 02/08/2022 LUMBAR HEMILAMINECTOMY Right 12/13/2015 LAMINOTOMY DECOMPRESSION NERVE ROOT LUMBAR performed by Chapin Ortega DO at OR [facility] LUMBAR SPINE FUSION W/BONE GRAFT 08/2016 PROSTHETIC MAT/MESH, ABD, NECROTIC, REMOVAL N/A 01/29/2022 REMOVAL MESH ABDOMINAL WALL NECROTIZING SOFT TISSUE INFECTION performed by Tom Broderick MD at [place] [facility] REMOVAL OF APPENDIX 1981 REMOVE GALLBLADDER 1981 REPAIR INITIAL INCISIONAL OR VENTRAL HERNIA; REDUCIBLE 2001 with mesh REVISE/REMOVE SPINAL NEURORECEIVER N/A 01/06/2020 REVISION OR REMOVAL IMPLANTED SPINAL NEUROSTIMULATOR performed by Gloria Pardo MD at OR [facility] UPPER ENDOSCOPY GI REFERRAL OP 08/28/05 cadet's esophagus-neg for dysplasia or carcinoma Social History Socioeconomic History Marital status: Spouse name: judah Number of children: 2 Years of education: Not on file Highest education level: Not on file Occupational History Occupation: [employer] Employer: [employer] Tobacco Use Smoking status: Never Smokeless tobacco: Never Vaping Use Vaping Use: Never used Substance and Sexual Activity Alcohol use: No Drug use: No Sexual activity: Not on file Other Topics Concern Service Not Asked Blood Transfusions Not Asked Caffeine Concern Not Asked Occupational Exposure Not Asked Hobby Hazards Not Asked Sleep Concern Not Asked Stress Concern Not Asked Weight Concern Not Asked Special Diet Not Asked Back Care Not Asked Exercise Not Asked Bike Helmet Not Asked Seat Belt Not Asked Self-Exams Not Asked Social History Narrative No pets. No mold. Social Determinants of Health Financial Resource Strain: Not on file Food Insecurity: No Food Insecurity (07/07/2019) Hunger Vital Sign Worried About Running Out of Food in the Last Year: Never true Ran Out of Food in the Last Year: Never true Transportation Needs: Not on file Physical Activity: Not on file Stress: Not on file Social Connections: Not on file Intimate Partner Violence: Not on file Housing Stability: Not on file Family History Problem Relation Age of Onset Heart Disorder Mother Other (Natural causes) Father age 93 Heart disease Sister Breast Cancer Sister COPD Sister Other (Natural causes) Sister Lung cancer Brother Alcohol and Other Disorders Associated Brother Alcoholism Heart attack Sister Fatal [place] age 55 COPD Sister Other (Natural causes) Sister Heart Disorder Grandmother (Maternal) Family History; none relevant to today's HPI Objective: [facility] 08/26/2022 00:38 08/26/2022 00:42 08/26/2022 00:45 08/26/2022 00:47 02/27/2023 22:04 02/27/2023 22:08 [facility] Date of Service 2022-09-17 2022-09-24 2022-09-17 2022-09-24 2023-03-31 2023-03-31 Appt Label now now now now now now [facility] Quality of Life Survey Physical (Pt Reported) 29.103 36.1072 30.4 [facility] Quality of Life Survey Mental (Pt Reported) 62.9745 61.9444 50.4525 Short Form 12 Quality of Life survey Physical Health (Pt Reported) .2010 30.2762 27.868 Short Form 12 Quality of Life survey Mental Health (Pt Reported) 66.6277 62.8742 47.7459 International Knee Documentation Committee Computer Adapted Test (Pt Reported) 33.2949 34.4049 42.8964 Physical Exam There were no vitals filed for this visit. Estimated body mass index is 25.51 kg/m as calculated from the following: Height as of 05/01/23: 1.759 m (5' 9.25"). Weight as of 05/01/23: 78.9 kg (174 lb). General: generally well-nourished and in no acute distress HEENT: normocephalic, atraumatic, sclera anicteric. Psych: mood and affect normal , cooperative Card: Peripheral pulses: normal in affected extremity (s) Resp: equal chest rise, non-tachypneic, non-labored breathing Skin: no rash, normal Neuro: Sensation: normal on affected extremity (s) MSK: Gait/station/stance: Antalgic Hip Exam Inspection: No obvious deformity, no redness, swelling, warmth, bruising, abrasion. Palpation: tenderness to palpation right SI joint, lumbar paraspinals and QL. ROM: normal and symmetric in actively flexion, extension, internal and external rotation in Bilateral Strength: Abduction: R - 5/5 L - 5/5 Internal Rotation: R - 5/5 L - 5/5 Quads: R - 5/5 L - 5/5 Hams: R - 5/5 L - 5/5 Adduction: R - 5/5 L - 5/5 Special Tests: Negative logroll and PERLA FADIR reproduces his right low back pain, no groin pain Positive Danika's Negative straight leg raise Positive slump Radiology (I have personally reviewed the following films): 07/23/2023: Two-view x-ray of the right hip including an AP pelvis No acute osseous abnormalities. Spinal stimulator in place. Moderate osteoarthritis of bilateral hips with very slight cam deformity - per my interpretation. Awaiting formal radiology interpretation. Assessment and Plan: ICD-10-CM 1. Hip pain, right M25.551 2. Low back strain, initial encounter S39.012A Mr. Cam Collins is an 82-year-old male who is seen today for right hip pain that is actually more consistent with a lumbar strain and exacerbation of his chronic right lower back issues. Discussed findings with the patient in detail and reviewed his x-rays with him. Although he has evidence of hip arthritis, this does not seem to be causing him any symptoms at the moment. Discussed recommendationfor heat/ice, lidocaine patches, and physical therapy. He was very hesitant, but eventually agreeable to physical therapy. He did question any additional medications. He was already on chronic Vicodin. Advised additional Tylenol with maximum of 3000 mg per day and lidocaine patches. He will follow up on an as-needed basis. The above assessment and plan were discussed at length. All questions were answered, and the patient expressed understanding. Alecia Stevens MD [facility] [address] [place] [address] documented in this encounter Nursing Notes * Nadia Hernandez MED ASSIST - 07/23/2023 8:53 AM EST Pt presents today for right hip pain, about 1 week ago patient was using the leaf blower and twisted the wrong way causing hip pain. documented in this encounter Plan of Treatment Upcoming Encounters Date Type Department Care Team (Latest Contact Info) Description 07/29/2023 8:30 AM EST Office Visit Orthopaedics [facility] [address] [place] [address] Wilfredo Vázquez, DO [address] [place] [address] 08/18/2023 9:15 AM EST Hospital Encounter [facility], Operating Room [facility] [address] [place] [id number] Kevon Vela, DO [address] [place] [id number] 08/18/2023 9:15 AM EST - 08/18/2023 9:40 AM EST Surgery OR [facility], Operating Room [facility] [address] [place] [phone] Kevon Vela, DO [address] [place] [phone] INJECTION SPINE LUMBAR CERVICAL OR THORACIC 10/15/2023 9:00 AM EST Office Visit [facility] [address] [place] [address] Wilfredo Vázquez, DO [address] [place] [address] 10/22/2023 9:00 AM EST Office Visit [facility] [address] [place] [address] Wilfredo Vázquez, DO [address] [place] [address] 10/29/2023 9:00 AM EST Office Visit [facility] [address] [place] [address] Wilfredo Vázquez, DO [address] [place] [address] 11/27/2023 6:00 PM EDT Office Visit [facility] [address] [place] [address] Manav De La Vega, DO [address] [place] [address] 05/03/2024 12:00 PM EDT Office Visit [facility] [address] [place] [address] Manav De La Vega, DO [address] [place] [address] Pending Results Name Type Priority Associated Diagnoses Date /Time XR HIP UNILAT 2-3 VIEWS INCLUDING AP PELVIS Medical Imaging Routine Hip pain, right 07/23/2023 9:10 AM EST Scheduled Procedures Name Priority Associated Diagnoses Date/Ti me INJECTION SPINE LUMBAR CERVICAL OR THORACIC Cervical radiculitis 08/18/2023 9:15 AM EST COLONOSCOPY FLEXIBLE PROXIMAL DIAGNOSTIC Recall History of colon polyps Scheduled Referrals Name Type Priority Associated Diagnoses Orde r Schedule PHYSICAL THERAPY REFERRAL OP Referral Within 10 days (routine) Hip pain, right Low back strain, initial encounter Ordered: 07/23/2023 Health Maintenance Due Date Last Done Comments Diabetic Foot Exam 1958 Hepatitis B (1 of 3 - Risk 3-dose series) 1999 Depression Screening 08/30/2022 08/30/2021 DTaP,Tdap,and Td Vaccines (2 - Td or Tdap) 10/05/2022 10/05/2012 Cadet's Esophagus Surveilance 10/13/2022 10/13/2019, 08/26/2017, 07/20/2015, Additional [...] Additional history exists Zoster Vaccines Completed 10/20/2020, 12/12/2019, 10/28/2011 Influenza Vaccine (FLU shot) Completed 07/21/2023, 07/16/2022, 05/29/2021, Additional history exists GARDASIL-HPV IMMUNIZATION SERIES Aged Out No longer eligible based on patient's age to complete this topic MENINGOCOCCAL (MENACTRA/MENVEO) Aged Out No longer eligible based on patient's age to complete this topic documented as of this encounter Medical Devices Implanted Type Area Gps Field Data Collector Device Identifier Shelf Expiration Date Model / Serial / Lot 15cm X 20cm Xenmatrix Surgical Graft, Rectangle Implanted:Qty : 1 on 01/29/2022 by Tom Broderick MD at [place] [facility] Graft N/A: Abdomen CR BARD : DAVOL [id number] 09/11/2022 [id number] / [id number] / [id number] Trial Lead Kit 50 Cm 16 Contact Implanted:Qty : 1 on 10/20/2017 by Gloria Pardo MD at OR [facility] N/A: Spine Thoracic The Roundtable : PAIN MGMT 08/08/2019 [id number] / [id number] / Description:T9, 10,11 Clik X Mri [place] Implanted:Qty : 1 on 12/01/2017 by Gloria Pardo MD at OR [facility] N/A: Back [employer] : PAIN MGMT 07/15/2019 [id number] / / [id number] Device Fixate Suturing - [id number] Implanted:Qty : 1 on 05/02/2020 by Gloria Pardo MD at OR [facility] N/A: Back Tailored Fit 03/21/2024 [id number] / / [id number] Trisha Ryan Thornton [id number] - [id number] Implanted:Qty : 1 on 02/08/2022 at [facility] COOK : DIAGNOSTIC INTERVENTION [id number] 10/10/2024 [id number] / / [id number] documented as of this encounter Visit Diagnoses Diagnosis Hip pain, right- Primary Pain in joint, pelvic region and thigh Low back strain, initial encounter Cervical radiculitis Brachial neuritis or radiculitis nos [...] the patient have Health Care Power of Station Tender? No Full Code 12/13/2015 11:19 AM 12/16/2015 5:05 PM This order reflects the patients wishes and were consensually agreed upon. Question Answer Comments Discussion of Advance Directives occurred with: Patient Does the patient have a Living Will? No Does the patient have Health Care Power of Station Tender? No Care Teams Towel Hemmer Relationship Specialty Start Date End Date Manav De La Vega DO [address] [place] [address] PCP - General Family Medicine 04/16/18 documented as of this encounter
--- OUTSIDE RECORDS SUMMARY | 2023-08-12 13:43 | External Medical Summary | Summary of Care ---
Author Name Unknown Organization [facility] Address [address] [facility] [place] [address] Phone [phone] Care Team Providers Care Foundry Superintendant Name Role Phone Anna De La Vega DO Primary Care Provider Reason for Visit * Reason Onset Date Comments Medication Refill 07/17/2023 Encounter Details Date Type Department Care Team (Late st Contact Info) Description 07/17/2023 Refill Family Practice [facility] [address] [place] [address] Anna De La Vega DO [address] [place] [address] Lumbar radiculitis Allergies Active Allergy Reactions Criticality Noted Date Comments Codeine Itching 05/20/2012 adverse reactions In large amounts only Gluten Itching 05/29/2005 Breaking out in blisters Gluten Meal Low 11/28/2022 Other reaction(s): rash Iodine Itching 02/28/2011 oral Atorvastatin Calcium Muscle pain 02/21/2014 Meloxicam Renal complications Medium 09/24/2017 Penicillins Rash 08/16/2002 Tramadol Hcl 08/07/2011 Bad stomach problems documented as of this encounter (statuses as of 07/17/2023) Medications Medication Sig Dispensed Refills Start Date [...] EVENING 315 Tablet 3 11/21/2022 4 Active tiZANidine HCl 2 MG Oral Tablet [...] Other (pain). 120 Tablet 0 07/17/2023 Active HYDROcodone-Acetam inophen 10-325 MG Oral TabletIndications: Lumbar radiculitis Take 1 Tablet by mouth every 6 hours as needed for pain. 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 11/21/2022 Atherosclerosis of [place] co ronary artery without angina pectoris 11/22/2021 [...] as of this encounter (statuses as of 07/17/2023) Resolved Problems Problem Noted Date Diagnosed Date [...] as of this encounter (statuses as of 07/17/2023) Immunizations Name Administration Dates Next Due COVID-19 [...] drink = 0.6 oz pur e alcohol) Sex and Gender Information Value Date Recorded [...] encounter Miscellaneous Notes * Telephone Encounter - Anna De La Vega DO - 07/17/2023 2:51 PM EDT Signed Prescriptions: Disp Refills HYDROcodone-Acetaminophen 10-325 MG Oral T*120 Ta*0 Sig: Take 1 Tablet by mouth every 6 hours as needed for Other (pain). Authorizing Provider: ANNA DE LA VEGA * Telephone Encounter - Vandana Charlton LPN - 07/17/2023 2:46 PM EDT Pending Prescriptions: Disp Refills HYDROcodone-Acetaminophen 10-325 MG Oral *120 Ta*0 Sig: Take 1 Tablet by mouth every 6 hours as needed for Other (pain). Last Visit: 05/01/2023 (in office), 10/09/2022 (telemedicine) Next Visit: 11/27/2023 Last date the medication was ordered: 06/19/2023 Patient Active Problem List Diagnosis Code ADVANCE [...] M18.0 Hyperlipidemia, unspecified E78.5 Atherosclerosis of aorta (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) J84.9 Atherosclerosis of [place] coronary artery without angina pectoris I25.10 Diabetes mellitus without complication ([facility]) E11.9 Spinal cord stimulator status Z96.89 [...] Room [facility] [address] [place] [phone] Kevon Vela, DO [address] [place] [address] 08/18/2023 9:15 AM EST - 08/18/2023 9:40 AM EST Surgery OR [facility], Operating Room [facility] [address] [place] [address] Kevon Vela, [address] [place] [address] INJECTION SPINE LUMBAR CERVICAL OR THORACIC 10/15/2023 9:00 AM EST Office Visit Orthopaedics [facility] [address] [place] [address] Wilfredo Vázquez, [address] [place] [address] 10/22/2023 9:00 AM EST Office Visit [facility] [address] [place] [address] Wilfredo Vázquez, DO [address] [place] [address] 10/29/2023 9:00 AM EST Office Visit Orthopaedics [facility] [address] [place] [address] Wilfredo Vázquez, DO [address] [place] [address] 11/27/2023 6:00 PM EDT Office Visit [facility] [address] [place] [address] Anna De La Vega, DO [address] [place] [address] 05/03/2024 12:00 PM EDT Office Visit [facility] [address] [place] [address] Anna De La Vega, DO [address] [place] [address] Scheduled Procedures Name Priority Associated Diagnoses Date/Ti [...] this encounter Medical Devices Implanted Type Area Car Jockey Device Identifier Shelf Expiration Date Model / Serial / Lot 15cm X 20cm Xenmatrix Surgical Graft, Rectangle Implanted:Qty : 1 on 01/29/2022 by Tom Broderick MD at OR [facility] [place] Graft N/A: Abdomen CR BARD : DAVOL [id number] 09/11/2022 [id number] / [id number] / [id number] Trial Lead Kit 50 Cm 16 Contact Implanted:Qty : 1 on 10/20/2017 by Gloria Pardo MD at OR [facility] N/A: Spine Thoracic ShareThis : PAIN MGMT 08/08/2019 [id number] / [id number] / Description:T9, 10,11 Clik X Mri [place] Implanted:Qty : 1 on 12/01/2017 by Gloria Pardo MD at OR [facility] N/A: Back ShareThis : PAIN MGMT 07/15/2019 [id number] / / [id number] Device Fixate Suturing - [id number] Implanted:Qty : 1 on 05/02/2020 by Gloria Pardo MD at OR [facility] N/A: Back Mobovivo 03/21/2024 [id number] 10 / / [id number] Trisha Thornton [id number] - [id number] Implanted:Qty : 1 on 02/08/2022 at [facility] COOK : DIAGNOSTIC INTERVENTION [id number] 10/10/2024 [id number] / / [id number] documented as of this encounter Visit Diagnoses Diagnosis Lumbar radiculitis Thoracic or lumbosacral neuritis or radiculitis, unspecified [...] the patient have Health Care Power of Sanding Machine Operator Or Tender? No Full Code 12/13/2015 11:19 AM 12/16/2015 5:05 PM This order reflects the patients wishes and were consensually agreed upon. Question Answer Comments Discussion of Advance Directives occurred with: Patient Does the patient have a Living Will? No Does the patient have Health Care Power of Sanding Machine Operator Or Tender? No Care Teams Foundry Superintendant Relationship Specialty Start Date End Date Anna De La Vega DO [address] [place] [address] PCP - General Family Medicine 04/16/18 documented as of this encounter
--- OUTSIDE RECORDS SUMMARY | 2023-08-12 13:43 | External Medical Summary | Summary of Care ---
Author Name Unknown Organization [facility] Address [address] [address] Phone [phone] Care Team Providers Care Glass Washer Name Role Phone Anna De La Vega DO Primary Care Provider Reason for Visit * Reason Onset Date Comments Medication Refill 06/19/2023 Encounter Details Date Type Department Care Team Description 06/19/2023 Refill Family Practice [facility] [address] [place] [address] Anna De La Vega DO [address] [place] [address] Lumbar radiculitis Allergies Active Allergy Reactions Severity Noted Date Comments Codeine Itching 05/20/2012 adverse reactions In large amounts only Gluten Itching 05/29/2005 Breaking out in blisters Gluten Meal Low 11/28/2022 Other reaction(s): rash Iodine Itching 02/28/2011 oral Atorvastatin Calcium Muscle pain 02/21/2014 Meloxicam Renal complications Medium 09/24/2017 Penicillins Rash 08/16/2002 Tramadol Hcl 08/07/2011 Bad stomach problems documented as of this encounter (statuses as of 06/19/2023) Medications Medication Sig Dispensed Refills Start Date [...] for pain. 120 Tablet 0 06/19/2023 Active HYDROcodone-Acetam inophen 10-325 MG Oral TabletIndications: Lumbar radiculitis Take 1 Tablet by mouth every 6 hours as needed for Other (pain). 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 Authorizing Provider: ANNA DE LA VEGA * Telephone Encounter - Isidra Collins LPN - 06/19/2023 9:02 AM EDT Provider to address: Pending Prescriptions: Disp Refills HYDROcodone-Acetaminophen 10-325 MG Oral *120 Ta*0 Sig: Take 1 Tablet by mouth every 6 hours as needed for Other (pain). 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 J92.0 ILD (interstitial lung disease) ([facility]) J84.9 Atherosclerosis of [place] coronary artery without angina pectoris I25.10 Diabetes mellitus without complication ([facility]) E11.9 Spinal cord stimulator status Z96.89 Old [...] - [facility] 6.0 (H) 03/23/2019 07:31 AM Reason for Call: Medication Refill Contact: Telephone Call Contact Type: Medication Total Time including non face to face (minutes): 5 documented in this encounter Plan of Treatment Upcoming Encounters Date Type Specialty Care Team Description 08/01/2023 Hospital Encounter Surgery Kevon Vela, DO [address] [place] [phone] 08/01/2023 Surgery Surgery Kevon Vela, DO [address] [place] [address] INJECTION SPINE LUMBAR CERVICAL OR THORACIC 10/15/2023 Office Visit Orthopedics Wilfredo Vázquez DO [address] [place] [address] 10/22/2023 Office Visit Orthopedics Wilfredo Vázquez DO [address] [place] [address] 10/29/2023 Office Visit Orthopedics Wilfredo Vázquez DO [address] [place] [address] 11/27/2023 Office Visit Family Medicine Anna De La Vega, DO [address] [place] [address] 05/03/2024 Office Visit Family Medicine Anna De La Vega, DO [address] [place] [address] Scheduled Procedures Name Priority Associated Diagnoses Date/Ti me INJECTION SPINE LUMBAR CERVICAL OR THORACIC Cervical radiculitis 08/01/2023 10:55 AM EST COLONOSCOPY FLEXIBLE PROXIMAL DIAGNOSTIC Recall History of colon polyps Health Maintenance Due Date Last Done Comments DIABETES-EYE EXAM 1958 Diabetic Foot Exam 1958 Depression Screening 08/30/2022 08/30/2021 DTaP,Tdap,and Td Vaccines (2 - Td or Tdap) 10/05/2022 10/05/2012 COVID-19 Vaccine ( season) 2023 10/11/2022, 01/04/2022, 12/07/2020, Additional history exists Influenza Vaccine (FLU shot) (#1) 2023 07/16/2022, 05/29/2021, 07/31/2020, Additional history exists HbA1c 10/01/2023 03/31/2023, 07/0 02/2022, 11/22/2021, Additional history exists Albumin/Creatinine Ratio 03/31/2024 03/31/2023 GFR 03/31/2024 03/31/2023, 07/0 02/2022, 02/09/2022, Additional history exists Pneumococcal Vaccine: 65+ Years Completed 06/07/2015, 09/29/2012 [...] this encounter Medical Devices Implanted Type Area Route Vending Machine Servicer Device Identifier Shelf Expiration Date Model / Serial / Lot 15cm X 20cm Xenmatrix Surgical Graft, Rectangle Implanted:Qty : 1 on 01/29/2022 by Tom Broderick MD at OR [facility] Graft N/A: Abdomen CR BARD : DAVOL [id number] 09/11/2022 [id number] / [id number] / [id number] Trial Lead Kit 50 Cm 16 Contact Implanted:Qty : 1 on 10/20/2017 by Gloria Pardo MD at OR [facility] N/A: Spine Thoracic [employer], [place] : PAIN MGMT 08/08/2019 [id number] E / [id number] / Description:T9, 10,11 Clik X Mri [place] Implanted:Qty : 1 on 12/01/2017 by Gloria Pardo MD at OR [facility] N/A: Back [employer] [place] : PAIN MGMT 07/15/2019 [id number] / / [id number] Device Fixate Suturing - [id number] Implanted:Qty : 1 on 05/02/2020 by Gloria Pardo MD at OR [facility] N/A: Back Learn[employer] 03/21/2024 [id number] 10 / / [id number] Trisha Thornton [id number] - [id number] Implanted:Qty : 1 on 02/08/2022 at [facility] COOK : DIAGNOSTIC INTERVENTION [id number] 10/10/2024 [id number] / / [id number] documented as of this encounter Visit Diagnoses [...] the patient have Health Care Power of Production Planner Scheduler? No Full Code 12/13/2015 11:19 AM 12/16/2015 5:05 PM This order reflects the patients wishes and were consensually agreed upon. Question Answer Comments Discussion of Advance Directives occurred with: Patient Does the patient have a Living Will? No Does the patient have Health Care Power of Production Planner Scheduler? No Care Teams Glass Washer Relationship Specialty Start Date End Date Anna De La Vega DO [address] [place] [address] PCP - General Family Medicine 04/16/18 documented as of this encounter
--- OUTSIDE RECORDS SUMMARY | 2023-08-12 13:44 | External Medical Summary | Summary of Care ---
Author Name Unknown Organization [facility] Address [address] [facility] [facility] [address] Phone [phone] Care Team Providers Care Chemical Research Worker Name Role Phone Anna De La Veag DO Primary Care Provider Reason for Visit * Reason Onset Date Comments Medication Refill 05/22/2023 Encounter Details Date Type Department Care Team Description 05/22/2023 Refill [facility] [address] [place] [address] Anna De La Vega DO [address] [place] [address] Lumbar radiculitis Allergies Active Allergy Reactions Severity [...] as of this encounter (statuses as of 05/22/2023) Medications Medication Sig Dispensed Refills Start Date [...] EVENING. 90 Tablet 3 08/02/2022 3 Active Diclofenac Sodium 1 % External Gel (Voltaren) PLACE 4 GRAM TOPICALLY ON THE SKIN 2 TIMES A DAY. 100 g 6 06/13/2022 3 Active Pantoprazole Sodium 40 MG Oral [...] for Other (pain). 120 Tablet 0 05/22/2023 Active HYDROcodone-Acetam inophen 10-325 MG Oral TabletIndications: Lumbar radiculitis Take 1 Tablet by mouth every 6 hours as needed for Other (pain). 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 11/21/2022 Atherosclerosis of [place] 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 pectoris 11/22/2021 [...] as of this encounter (statuses as of 05/22/2023) Resolved Problems Problem Noted Date Resolved Date [...] as of this encounter (statuses as of 05/22/2023) Immunizations Name Administration Dates Next Due COVID-19 mRNA, LNP-s, No Pre serve, 2-Dose Series (Pfizer) 12/07/2020,11/16/2020 COVID-19, LNP-s, No Preserve , Justice-sucrose, Ages 12+ (Pfizer) 01/04/2022 Covid-19, Mrna, Lnp-s, Pf, B ivalent, 30 Mcg, IM, 12 yrs and above (Pfizer) 10/11/2022 Pneumococcal Conjugate Vacc, 13 Valent (Prevnar) 09/29/2012 Pneumococcal Polysaccharide PPV23 (Pneumovax) 06/07/2015 Season Influenza, Cell Culte r, 18+ Yrs, With Preserv (Flucelvax) 06/07/2015 Season Influenza, Quad, PF, Adjuvanted, 65+ Yrs, IM (FLUAD) 07/31/2020 Seasonal Influenza, PF, 6 mo ns & Above, IM , (Flulaval) 06/29/2018 Seasonal Influenza, Quadriva lent Hd (Fluzone Hd) [...] - Anna De La Vega DO - 05/22/2023 2:41 PM EDTSigned Prescriptions: Disp Refills HYDROcodone-Acetaminophen 10-325 MG Oral T*120 Ta*0 Sig: Take 1 Tablet by mouth every 6 hours as needed for Other (pain). Authorizing Provider: ANNA DE LA VEGA * Telephone Encounter - Vandana Charlton LPN - 05/22/2023 10:56 AM EDT Pending Prescriptions: Disp Refills HYDROcodone-Acetaminophen 10-325 MG Oral *120 Ta*0 Sig: Take 1 Tablet by mouth every 6 hours as needed for Other (pain). 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 J92.0 ILD (interstitial lung disease) ([facility]) J84.9 Atherosclerosis of [place] coronary artery without angina pectoris I25.10 Diabetes mellitus without complication ([facility]) E11.9 Spinal cord stimulator status Z96.89 Old [...] Vela, DO [address] [place] [phone] 08/01/2023 Surgery Surgery Kevon Vela DO [address] [place] [address] INJECTION SPINE LUMBAR CERVICAL OR THORACIC 10/15/2023 Office Visit Orthopedics Wilfredo Vázquez DO [address] [place] [address] 10/22/2023 Office Visit Orthopedics Wilfredo Vázquez DO [address] [place] [address] 10/29/2023 Office Visit Orthopedics Wilfredo Vázquez DO [address] [place] [address] 11/27/2023 Office Visit Family [facility] Anna De La Vega, DO [address] [place] [address] 05/03/2024 Office Visit [facility] Anna Sánchez, DO [address] [place] [address] Scheduled Procedures Name Priority Associated Diagnoses Date/Ti me INJECTION SPINE LUMBAR CERVICAL OR THORACIC Cervical radiculitis 08/01/2023 10:55 AM EST COLONOSCOPY FLEXIBLE PROXIMAL DIAGNOSTIC Recall History of colon polyps Health Maintenance Due Date Last Done Comments DIABETES-EYE EXAM 1958 Diabetic Foot Exam 1958 Depression Screening 08/30/2022 08/30/2021 DTaP,Tdap,and Td Vaccines (2 - Td or Tdap) 10/05/2022 10/05/2012 Influenza Vaccine (FLU shot) (#1) 2023 07/16/2022, 05/29/2021, 07/31/2020, Additional history exists HbA1c 10/01/2023 03/31/2023, 07/0 02/2022, 11/22/2021, Additional history exists Albumin/Creatinine Ratio 03/31/2024 03/31/2023 GFR 03/31/2024 03/31/2023, 07/0 02/2022, 02/09/2022, Additional history exists Pneumococcal Vaccine: 65+ Years Completed 06/07/2015, 09/29/2012 COLONOSCOPY-EVERY 5 YRS AGES 18-100 Discontinued 12/17/2016, 12/17/2016, 02/28/2011, Additional history exists Zoster Vaccines Completed 10/20/2020, 12/0 12/2019, 10/28/2011 COVID-19 Vaccine Completed 10/11/2022, , 12/07/2020, Additional history exists GARDASIL-HPV IMMUNIZATION SERIES Aged Out No longer eligible based on patient's age to complete this topic Hepatitis B Aged Out No longer eligi ble based on patient's age to complete this topic MENINGOCOCCAL (MENACTRA/MENVEO) Aged Out No longer eligible based on patient's age to complete this topic documented as of this encounter Medical Devices Implanted Type Area Comparison Shopper Device Identifier Shelf Expiration Date Model / Serial / Lot 15cm X 20cm Xenmatrix Surgical Graft, Rectangle Implanted:Qty : 1 on 01/29/2022 by Tom Broderick MD at OR [facility] [place] Graft N/A: Abdomen CR BARD : DAVOL [id number] 09/11/2022 [id number] / [id number] / [id number] Trial Lead Kit 50 Cm 16 Contact Implanted:Qty : 1 on 10/20/2017 by Gloria Pardo MD at OR [facility] N/A: Spine Thoracic [employer]stream : PAIN MGMT 08/08/2019 [id number] E / [id number] / Description:T9, 10,11 Clik X Mri [place] Implanted:Qty : 1 on 12/01/2017 by Gloria Pardo MD at OR [facility] N/A: Back [employer]stream : PAIN MGMT 07/15/2019 [id number] / / [id number] Device Fixate Suturing - [id number] Implanted:Qty : 1 on 05/02/2020 by Gloria Pardo MD at OR [facility] N/A: Back [employer] 03/21/2024 [id number] / / [id number] Trisha Thornton [id number] - [id number] Implanted:Qty : 1 on 02/08/2022 at [facility] COOK : DIAGNOSTIC INTERVENTION [id number] 10/10/2024 [id number] / / [id number] documented as of this encounter Visit Diagnoses [...] the patient have Health Care Power of Supervisor Properties? No Full Code 12/13/2015 11:19 AM 12/16/2015 5:05 PM This order reflects the patients wishes and were consensually agreed upon. Question Answer Comments Discussion of Advance Directives occurred with: Patient Does the patient have a Living Will? No Does the patient have Health Care Power of Supervisor Properties? No Care Teams Chemical Research Worker Relationship Specialty Start Date End Date Anna De La Vega DO [address] [place] [address] PCP - General Family Medicine 04/16/18 documented as of this encounter
--- OUTSIDE RECORDS SUMMARY | 2023-08-12 13:44 | External Medical Summary | Summary of Care ---
Author Name Unknown Organization [facility] [address] [facility] [address] Phone [phone] Care Team Providers Care Relay Mechanic Name Role Phone Anna De La Vega DO Primary Care Provider Reason for Visit * Reason Onset Date Comments Medication Refill 04/24/2023 Encounter Details Date Type Department Care Team Description 04/24/2023 Refill [facility] [address] [place] [address] Anna De La Vega DO [address] [place] [address] Lumbar radiculitis Allergies Active Allergy Reactions Severity [...] as of this encounter (statuses as of 04/24/2023) Medications Medication Sig Dispensed Refills Start Date [...] For constipation. 15 Tablet 0 02/04/2022 Active oxygen IN GASIndications:Noc turnal hypoxemia,Acute respiratory failure due to COVID-19 (HCC) Discontinue standing oxygen concentrator and portable oxygen tank. 1 Each 0 05/08/2022 Active Lisinopril 5 MG Oral Tablet (Prinivil)Indicati ons:HTN, goal below 140/90 TAKE 1 TABLET BY MOUTH IN THE EVENING. 90 Tablet 3 08/02/2022 3 Active Diclofenac Sodium 1 % External Gel (Voltaren) PLACE 4 GRAM TOPICALLY ON THE SKIN 2 TIMES A DAY. 100 g 6 06/13/2022 3 Active Dapsone 25 MG Oral Tablet TAKE 2 TABLETS BY MOUTH DAILY NEEDED FOR ITCHING 60 Tablet 2 09/24/2022 Active Pantoprazole Sodium 40 MG Oral Tablet [...] erectile dysfunction. 30 Tablet 2 10/14/2022 Active DULoxetine HCl 60 MG Oral Capsule Delayed Release Particles (Cymbalta)Indicati ons:Chronic pain syndrome TAKE 1 CAPSULE BY MOUTH IN THE MORNING 90 Capsule 3 10/29/2022 4 Active Additional Information Patient not taking.Reported on 02/25/2023 DULoxetine HCl 30 MG Oral Capsule Delayed Release Particles (Cymbalta)Indicati ons:Chronic pain syndrome TAKE1 CAPSULE BY MOUTH IN THE AFTERNOON FOR A TOTAL OF 90MG DAILY. DO NOT CUT, CRUSH OR CHEW 90 Capsule 3 10/29/2022 4 Active Additional Information Patient not taking.Reported on 04/18/2023 oxygen IN GASIndications:Chr onic respiratory failure with hypoxia (HCC),ILD (interstitial lung disease) (HCC) 2 LPM via NC with ambulation. Titrate for an SpO2 of 90-94%. 1 Each 0 10/29/2022 Active Finasteride 5 MG Oral Tablet (Proscar)Indicatio [...] MOUTH DAILY 90 Tablet 1 01/15/2023 Active diphenhydrAMINE HCl 50 MG Oral Capsule (Benadryl) Take 1 capsule by mouth 1 hour prior to scheduled spine procedure. 1 Capsule 0 04/18/2023 Active predniSONE 50 MG Oral Tablet (Deltasone) [...] WITH MEALS 180 Tablet 1 04/23/2023 Active HYDROcodone-Acetam inophen 10-325 MG Oral TabletIndications: Lumbar radiculitis Take 1 Tablet by mouth every 6 hours as needed for Other (pain). 120 Tablet 0 04/24/2023 Active HYDROcodone-Acetam inophen 10-325 MG Oral TabletIndications: Lumbar radiculitis Take 1 Tablet by mouth every 6 hours as needed for pain 120 Tablet 0 03/27/2023 3 Discontinu ed(Refill) documented as of this encounter (statuses as of 04/24/2023) Active Problems Problem Noted Date Spinal cord stimulator status 11/21/2022 Ileus, postoperative 02/08/2022 Pelvic abscess in male 02/08/2022 Infected hernioplasty mesh 02/04/2022 Atherosclerosis of [place] 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 pectoris 11/22/2021 Protein-calorie malnutrition 11/22/2021 Diabetes mellitus without complication 0 11/22/2021 Pleural plaque due to asbestos exposure 09/27/2021 ILD (interstitial lung disease) 09/27/19 SBO (small bowel obstruction) 08/05/2021 Atherosclerosis of aorta 08/02/2021 Hyperlipidemia, unspecified 12/15/2019 [...] as of this encounter (statuses as of 04/24/2023) Resolved Problems Problem Noted Date Resolved Date Acute respiratory failure due to COVID-19 202101/10/2022 HTN, goal below 130/80 04/27/2014 8 BENIGN NEOPLASM LG BOWEL 08/14/2006 019 Overview: Colonoscopy 08/04/06--adenomatous--repeat 5 years Other ventral hernia without mention of obstruction or gangrene 08/16/2002 12/15/2018 documented as of this encounter (statuses as of 04/24/2023) Immunizations Name Administration Dates Next Due COVID-19 mRNA, LNP-s, No Pre serve, 2-Dose Series ([employer]) 12/07/2020,11/16/2020 COVID-19, LNP-s, No Preserve , Justice-sucrose, Ages 12+ (Pfizer) 01/04/2022 Covid-19, Mrna, Lnp-s, Pf, B ivalent, 30 Mcg, IM, 12 yrs and above (Pfizer) 10/11/2022 Pneumococcal Conjugate Vacc, 13 Valent (Prevnar) 09/29/2012 Pneumococcal Polysaccharide PPV23 (Pneumovax) 06/07/2015 Seasonal Influenza, Cell Cul ture, 18 Yrs & Older 06/07/2015 Seasonal Influenza, Quadriva lent Hd (Fluzone Hd) 07/16/2022,05/29/2021 Seasonal Influenza, Quadriva lent, No Preserve, 6 Mons & Above, IM 06/29/2018 Seasonal Influenza, Quadriva lent, No Preserve, Adjuvanted, 65+ Yrs, IM 07/31/2020 Seasonal Influenza, Quadriva lent, No Preserve, IM [...] - Anna De La Vega DO - 04/24/2023 9:37 AM EDTSigned Prescriptions: Disp Refills HYDROcodone-Acetaminophen 10-325 MG Oral T*120 Ta*0 Sig: Take 1 Tablet by mouth every 6 hours as needed for Other (pain). Authorizing Provider: ANNA DE LA VEGA * Telephone Encounter - Vandana Hong AntoniojimmyELIZABETH - 04/24/2023 8:28 AM EDT Provider to address: Anna De La Vega DO Reason for Call: Medication Refill Contact: Telephone Call Contact Type: Medication Outcome: Pending Prescriptions: Disp Refills HYDROcodone-Acetaminophen 10-325 MG Oral *120 Ta*0 Sig: Take 1 Tablet by mouth every 6 hours as needed for Other (pain). Last Visit: 07/16/2022 (in office), 10/09/2022 (telemedicine) Next Visit: 05/01/2023 Last date the medication was ordered: 03/27/2023 Patient stated that the [place] on Friday [facility] Askingfor refill for tomorrow or Friday. Patient Active Problem List Diagnosis Code ADVANCE [...] unspecified E78.5 Atherosclerosis of aorta (HCC) I70.0 SBO (small bowel obstruction) (HCC) K56.609 Pleural plaque due to asbestos exposure J92.0 ILD (interstitial lung disease) ([facility]) J84.9 Atherosclerosis of [place] coronary artery without angina pectoris I25.10 Protein-calorie malnutrition ([facility]) E46 Diabetes mellitus without complication ([facility]) E11.9 Infected hernioplasty mesh ([facility]) T85.79XA Ileus, postoperative ([facility]) K91.89, K56.7 Pelvic abscess in male ([facility]) K65.1 Spinal cord stimulator status Z96.89 Labs: Lab Results Component Value Date/Time CREAT [...] - [facility] 6.0 (H) 03/23/2019 07:31 AM Total Time including non face to face (minutes): 5 documented in this encounter Plan of Treatment Upcoming Encounters Date Type Specialty Care Team Description 05/01/2023 Office Visit Family Medicine Anna De La Vega, DO [address] [place] [address] 06/02/2023 Hospital Encounter Surgery Kevon Vela, DO [address] [place] [address] 06/02/2023 Surgery Surgery Kevon Vela, DO [address] [place] [address] INJECTION SPINE LUMBAR CERVICAL OR THORACIC 10/15/2023 Office Visit Orthopedics Wilfredo Vázquez, DO [address] [place] [address] 10/22/2023 Office Visit Orthopedics Wilfredo Vázquez DO [address] [place] [address] 10/29/2023 Office Visit Orthopedics Wilfredo Vázquez, DO [address] [place] [address] Scheduled Procedures Name Priority Associated Diagnoses Date/Ti me INJECTION SPINE LUMBAR CERVICAL OR THORACIC Cervical radiculitis 06/02/2023 10:30 AM EDT COLONOSCOPY FLEXIBLE PROXIMAL DIAGNOSTIC Recall History of colon polyps Health Maintenance Due Date Last Done Comments DIABETES-EYE EXAM 1958 DIABETES-FOOT EXAM 1958 COLONOSCOPY-EVERY 5 YRS AGES 18-100 12/17/2021 12/17/2016, 12/17/2016, 02/28/2011, Additional history exists Depression Screening, Annual for Pts 12 and Over 08/30/2022 08/30/2021 DTaP,Tdap,and Td Vaccines (2 - Td or Tdap) 10/05/2022 10/05/2012 Influenza Vaccine (FLU shot) (#1) 2023 07/16/2022, 05/29/2021, 07/31/2020, Additional history exists HbA1c 10/01/2023 03/31/2023, 070 02/2022, 11/22/2021, Additional history exists Albumin/Creatinine Ratio 03/31/2024 03/31/2023 GFR 03/31/2024 03/31/2023, 070 02/2022, 02/09/2022, Additional history exists Pneumococcal Vaccine: 65+ Years Completed 06/07/2015, 09/29/2012 Zoster Vaccines Completed 10/20/2020, 1212/2019, 10/28/2011 COVID-19 Vaccine Completed 10/11/2022, , 12/07/2020, [...] this encounter Medical Devices Implanted Type Area Launch Operator Device Identifier Shelf Expiration Date Model / Serial / Lot 15cm X 20cm Xenmatrix Surgical Graft, Rectangle Implanted:Qty : 1 on 01/29/2022 by Tom Broderick MD at [place] [facility] [place] Graft N/A: Abdomen CR BARD : DAVOL [id number] 09/11/2022 [id number] / [id number] / [id number] Trial Lead Kit 50 Cm 16 Contact Implanted:Qty : 1 on 10/20/2017 by Gloria Pardo MD at OR [facility] N/A: Spine Thoracic [employer] : PAIN MGMT 08/08/2019 [id number] / [id number] / Description:T9, 10,11 Clik X Mri [place] Implanted:Qty : 1 on 12/01/2017 by Gloria Pardo MD at OR [facility] N/A: Back [employer] : PAIN MGMT 07/15/2019 [id number] / / [id number] Device Fixate Suturing - [id number] Implanted:Qty : 1 on 05/02/2020 by Gloria Pardo MD at OR [facility] N/A: Back [employer] 03/21/2024 [id number] 10 / / [id number] Trisha Thornton [id number] - [id number] Implanted:Qty : 1 on 02/08/2022 at [facility] COOK : DIAGNOSTIC INTERVENTION [id number] 10/10/2024 [id number] / / [id number] documented as of this encounter Visit Diagnoses [...] the patient have Health Care Power of Harbormaster? No Full Code 12/13/2015 11:19 AM 12/16/2015 5:05 PM This order reflects the patients wishes and were consensually agreed upon. Question Answer Comments Discussion of Advance Directives occurred with: Patient Does the patient have a Living Will? No Does the patient have Health Care Power of Harbormaster? No Care Teams Relay Mechanic Relationship Specialty Start Date End Date Anna De La Vega DO [address] [place] [address] PCP - General Family Medicine 04/16/18 documented as of this encounter
--- OUTSIDE RECORDS SUMMARY | 2023-08-12 13:44 | External Medical Summary | Summary of Care ---
Author Name Unknown Organization [facility] Address [address] [place] [address] Phone [phone] Care Team Providers Care Strainer Tender Name Role Phone Ceferino Manav Jonesadeline Primary Care Provider Encounter Details Date Type Department Care Team Description 05/07/2023 Orders Only Outcomes Research Department [address], [place] [id number] Jia Elliott CHRA [facility] Other*[id number] Allergies Active Allergy Reactions Severity Noted Date Comments Codeine Itching 05/20/2012 adverse reactions In large amounts only Gluten Itching 05/29/2005 Breaking out in blisters Gluten Meal Low 11/28/2022 Other reaction(s): rash Iodine Itching 02/28/2011 oral Atorvastatin Calcium Muscle pain 02/21/2014 Meloxicam Renal complications Medium 09/24/2017 Penicillins Rash 08/16/2002 Tramadol Hcl 08/07/2011 Bad stomach problems documented as of this encounter (statuses as of 05/07/2023) Medications Medication Sig Dispensed Refills Start Date [...] IN THE EVENING. 90 Tablet 3 08/02/2022 08/02/2023 Active Diclofenac Sodium 1 % External Gel (Voltaren) PLACE 4 GRAM TOPICALLY ON THE SKIN 2 TIMES A DAY. 100 g 6 06/13/2022 06/13/2023 Active Pantoprazole Sodium 40 MG Oral Tablet [...] WITH MEALS 180 Tablet 1 04/23/2023 Active HYDROcodone-Acetami nophen 10-325 MG Oral TabletIndications:L umbar radiculitis Take 1 Tablet by mouth every 6 hours as needed for Other (pain). 120 Tablet 0 04/24/2023 Active Albuterol Sulfate HFA 108 (90 Base) MCG/ACT Inhalation Aerosol Solution INHALE 2 PUFFS BY MOUTH 4 TIMES DAILY 18 g 1 05/02/2023 05/01/2024 Active Dapsone 25 MG Oral Tablet TAKE 2 TABLETS BY MOUTH DAILY NEEDED FOR ITCHING 60 Tablet 2 05/01/2023 Active documented as of this encounter (statuses as of 05/07/2023) Active Problems Problem Noted Date 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 11/21/2022 Atherosclerosis of [place] 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 pectoris 11/22/2021 [...] as of this encounter (statuses as of 05/07/2023) Resolved Problems Problem Noted Date Resolved Date [...] as of this encounter (statuses as of 05/07/2023) Immunizations Name Administration Dates Next Due COVID-19 mRNA, LNP-s, No Pre serve, 2-Dose Series ([employer]) 12/07/2020,11/16/2020 COVID-19, LNP-s, No Preserve , Justice-sucrose, Ages 12+ ([employer]) 01/04/2022 Covid-19, Mrna, Lnp-s, Pf, B ivalent, [...] Encounters Date Type Specialty Care Team Description 06/02/2023 Hospital Encounter Surgery Kevon Vela, DO [address] [place] [phone] 06/02/2023 Surgery Surgery Kevon Vela, DO [address] [place] [phone] INJECTION SPINE LUMBAR CERVICAL OR THORACIC 10/15/2023 Office Visit Orthopedics Wilfredo Vázquez, DO [address] [place] [address] 10/22/2023 Office Visit Orthopedics Wilfredo Vázquez, DO [address] [place] [address] 10/29/2023 Office Visit Orthopedics Wilfredo Vázquez, DO [address] [place] [address] 11/27/2023 Office Visit Family Medicine Manav De La Vega, DO [address] [place] [address] 05/03/2024 Office Visit Family Medicine Manav De La Vega, DO [address] [place] [address] Scheduled Orders Name Type Priority Associated Diagnoses Orde r Schedule MYCODE SUBSEQUENT ADULT Lab Routine [facility] Other*[id number] Every 6 Months for 2 Occurrences starting 05/07/2023 until 05/26/2024 Scheduled Procedures Name Priority Associated Diagnoses Date/Ti me INJECTION SPINE LUMBAR CERVICAL OR THORACIC Cervical radiculitis 06/02/2023 10:30 AM EDT COLONOSCOPY FLEXIBLE PROXIMAL DIAGNOSTIC Recall History of colon polyps Health Maintenance Due Date Last Done Comments DIABETES-EYE EXAM 1958 DIABETES-FOOT EXAM 1957 Depression Screening, Annual for Pts 12 and [...] Additional history exists Zoster Vaccines Completed 10/20/2020, 120 12/2019, 10/28/2011 COVID-19 Vaccine Completed 10/11/2022, , [...] this encounter Medical Devices Implanted Type Area Home Appliance Washing Machine Mechanic Device Identifier Shelf Expiration Date Model / Serial / Lot 15cm X 20cm Xenmatrix Surgical Graft, Rectangle Implanted:Qty : 1 on 01/29/2022 by Tom Broderick MD at OR [facility] [place] Graft N/A: Abdomen CR BARD : DAVOL [id number] 09/11/2022 [id number] / [id number] / [id number] Trial Lead Kit 50 Cm 16 Contact Implanted:Qty : 1 on 10/20/2017 by Gloria Pardo MD at OR [facility] N/A: Spine Thoracic [email or web address] : PAIN MGMT 08/08/2019 [facility] [id number] E / [id number] / Description:T9, 10,11 Clik X Mri [place] Implanted:Qty : 1 on 12/01/2017 by Gloria Pardo MD at OR [facility] N/A: Back [email or web address] : PAIN MGMT 07/15/2019 [facility] [id number] / / [id number] Device Fixate Suturing - [id number] Implanted:Qty : 1 on 05/02/2020 by Gloria Pardo MD at OR [facility] N/A: Back [employer] 03/21/2024 [id number] 10 / / [id number] [facility] Ryan Thornton [id number] - [id number] Implanted:Qty : 1 on 02/08/2022 at [facility] COOK : DIAGNOSTIC INTERVENTION [id number] 10/10/2024 [id number] / / [id number] documented as of this encounter Visit Diagnoses Diagnosis [facility] Other*[id number] Cervical radiculitis Brachial neuritis or radiculitis nos [...] the patient have Health Care Power of Lighting Fixtures Decorator? No Full Code 12/13/2015 11:19 AM 12/16/2015 5:05 PM This order reflects the patients wishes and were consensually agreed upon. Question Answer Comments Discussion of Advance Directives occurred with: Patient Does the patient have a Living Will? No Does the patient have Health Care Power of Lighting Fixtures Decorator? No Care Teams Strainer Tender Relationship Specialty Start Date End Date Manav De La Vega DO [address] [place] [address] PCP - General Family Medicine 04/16/18 documented as of this encounter
--- OUTSIDE RECORDS SUMMARY | 2023-08-12 13:44 | External Medical Summary | Summary of Care ---
Author Name Unknown Organization [facility] Address [address] [facility] [address] Phone [phone] Care Team Providers Care Script Reader Name Role Phone Manav De La Vega DO Primary Care Provider Reason for Visit * Reason Comments Return Visit Pt here for 6 mo ret urn. Encounter Details Date Type Department Care Team Description 05/01/2023 Office Visit [facility] Practice [facility] [address] [place] [address] Manav De La Vega DO [address] [place] [address] Diabetes mellitus without complication (HCC)*; ILD (interstitial lung disease) (HCC); Chronic ischemic heart disease; Atherosclerosis of aorta (HCC); Primary osteoarthritis of left knee; Statin intolerance; Old myocardial infarct; Protein-calorie malnutrition, unspecified severity (HCC); Infection and inflammatory reaction due to other internal prosthetic devices, implants and grafts, initial encounter (HCC); Pelvic abscess in male (HCC); Dermatitis herpetiformis; Celiac disease; Dyslipidemia, goal LDL below 70; B12 deficiency Allergies Active Allergy Reactions Severity Noted Date Comments Codeine Itching 05/20/2012 adverse reactions In large amounts only Gluten Itching 05/29/2005 Breaking out in blisters Gluten Meal Low 11/28/2022 Other reaction(s): rash Iodine Itching 02/28/2011 oral Atorvastatin Calcium Muscle pain 02/21/2014 Meloxicam Renal complications Medium 09/24/2017 Penicillins Rash 08/16/2002 Tramadol Hcl 08/07/2011 Bad stomach problems documented as of this encounter (statuses as of 05/01/2023) Medications Medication Sig Dispensed Refills Start Date End Date Status MULTIVITAMINS PO CAPS 1 daily 0 Active TYLENOL 325 MG PO TABS Take 2 Tablets by mouth every 6 hours as needed. 0 Active Red Yeast Rice 600 MG TABS Tablet Take 1 Tablet by mouth in the morning and 1 Tablet before bedtime. 0 Active NITROSTAT 0.4 MG SUBL As needed 0 6 Active CYANOCOBALAMIN (VITAMIN B-12) 100 MCG Tablet Take 1 Tablet by mouth in the morning. 0 Active Diclofenac Sodium (VOLTAREN) 1 % gel Place 4 g topically on the skin 2 times a day. To affected area as directed. 100 g 6 9 Active aspirin enteric coated 81 MG TBEC Take 1 Tablet by mouth in the morning. 0 Active Polyethylene Glycol 3350 17 GM/SCOOP Oral Powder (MiraLax) Take 17 g by mouth daily as needed for Constipation. 255 g 0 1 Active Ezetimibe 10 MG Oral Tablet (Zetia) Take 1 Tablet by mouth in the morning. 0 1 Active CPAP every night at bedtime . 0 Active Sennosides 8.6 MG Oral Tablet (Senokot) Take by mouth 1 Tablet in the morning. For constipation. 15 Tablet 0 2 Active Lisinopril 5 MG Oral Tablet (Prinivil)Indicat ions:HTN, goal below 140/90 TAKE 1 TABLET BY MOUTH IN THE EVENING. 90 Tablet 3 2 023 Active Diclofenac Sodium 1 % External Gel (Voltaren) PLACE 4 GRAM TOPICALLY ON THE SKIN 2 TIMES A DAY. 100 g 6 2 023 Active Pantoprazole Sodium 40 MG Oral Tablet Delayed Release (Protonix)Indicat ions:High grade dysplasia of Nash's epithelium Take 1 Tablet by mouth in the morning. 90 Tablet 3 3 Active Sildenafil Citrate 50 MG Oral TabletIndications :Combined arterial insufficiency and corporo-venous occlusive erectile dysfunction Take 1/2 to 1 tablet by mouth 30 minutes prior to intercourse as needed for erectile dysfunction. 30 Tablet 2 3 Active Finasteride 5 MG Oral Tablet (Proscar)Indicati ons:BPH with obstruction/lower urinary tract symptoms TAKE ONE TABLET BY MOUTH DAILY 90 Tablet 3 3 024 Active Gabapentin 600 MG Oral Tablet (Neurontin)Indica tions:Lumbar radiculitis TAKE 1 TABLET BY MOUTH IN THE MORNING, TAKE 1 AND 1/2 TABLETS AT NOON AND TAKE 1 TABLET IN THE EVENING 315 Tablet 3 3 024 Active tiZANidine HCl 2 MG Oral Tablet (Zanaflex)Indicat ions:Lumbar radiculopathy Take 1 Tablet by mouth 2 times a day as needed. 90 Tablet 1 3 Active Ezetimibe 10 MG Oral Tablet (Zetia) TAKE ONE TABLET (10MG) BY MOUTH DAILY 90 Tablet 1 3 Active predniSONE 50 MG Oral Tablet (Deltasone) Take 1 tablet by mouth 13 hours prior and 1 tablet 1 hour prior to scheduled procedure. Take with food and water. 2 Tablet 0 3 Active Additional Information Patient not taking.Reported on 05/01/2023 metFORMIN HCl ER 500 MG Oral Tablet Extended Release 24 Hour (Glucophage XR)Indications:Ty pe 2 diabetes mellitus without complication, without long-term current use of insulin (HCC) TAKE ONE TABLET BY MOUTH TWICE DAILY WITH MEALS 180 Tablet 1 3 Active HYDROcodone-Aceta minophen 10-325 MG Oral TabletIndications :Lumbar radiculitis Take 1 Tablet by mouth every 6 hours as needed for Other (pain). 120 Tablet 0 3 Active Dapsone 25 MG Oral Tablet TAKE 2 TABLETS BY MOUTH DAILY NEEDED FOR ITCHING 60 Tablet 2 3 Active oxygen IN GASIndications:No cturnal hypoxemia,Acute respiratory failure due to COVID-19 (HCC) Discontinue standing oxygen concentrator and portable oxygen tank. 1 Each 0 2 023 Discontinued(Il dication List Clean Up) Dapsone 25 MG Oral Tablet TAKE 2 TABLETS BY MOUTH DAILY NEEDED FOR ITCHING 60 Tablet 2 3 023 Discontinued(Re fill) DULoxetine HCl 60 MG Oral Capsule Delayed Release Particles (Cymbalta)Indicat ions:Chronic pain syndrome TAKE 1 CAPSULE BY MOUTH IN THE MORNING 90 Capsule 3 3 023 Discontinued(Ex ternal Source Cancellation) DULoxetine HCl 30 MG Oral Capsule Delayed Release Particles (Cymbalta)Indicat ions:Chronic pain syndrome TAKE1 CAPSULE BY MOUTH IN THE AFTERNOON FOR A TOTAL OF 90MG DAILY. DO NOT CUT, CRUSH OR CHEW 90 Capsule 3 3 023 Discontinued oxygen IN GASIndications:Ch ronic respiratory failure with hypoxia (HCC),ILD (interstitial lung disease) (HCC) 2 LPM via NC with ambulation. Titrate for an SpO2 of 90-94%. 1 Each 0 3 023 Discontinued diphenhydrAMINE HCl 50 MG Oral Capsule (Benadryl) Take 1 capsule by mouth 1 hour prior to scheduled spine procedure. 1 Capsule 0 3 023 Discontinued methylPREDNISolon e 4 MG Oral Tablet (Medrol) Take 1 Tablet by mouth in the morning. 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 11/22/2021 [...] as of this encounter (statuses as of 05/01/2023) Resolved Problems Problem Noted Date Resolved Date [...] as of this encounter (statuses as of 05/01/2023) Immunizations Name Administration Dates Next Due COVID-19 mRNA, LNP-s, No Pre serve, 2-Dose Series (Crzy[employer]) 12/07/2020,11/16/2020 COVID-19, LNP-s, No Preserve , Justice-sucrose, Ages 12+ (Crzyfish) 01/04/2022 Covid-19, Mrna, Lnp-s, Pf, B ivalent, 30 Mcg, IM, 12 yrs and above (Crzyfish) 10/11/2022 Pneumococcal Conjugate Vacc, 13 Valent (Prevnar) [...] Date Smoking Tobacco: Never Smokeless Tobacco: Never Tobacco Cessation:Counseling Given: Not Answered Alcohol Use Standard Drinks/Week Comments No 0 [...] Sign Reading Time Taken Comments Blood Pressure 124/60 05/01/2023 12:50 PM EDT Pulse 64 05/01/2023 12:50 PM EDT Temperature 35.9 C (96.7 F) 05/01/2023 12:50 PM E DT Respiratory Rate 16 05/01/2023 12:50 PM EDT Oxygen Saturation 97% 05/01/2023 12:50 PM EDT Inhaled Oxygen Concentration - - Weight 78.9 kg (174 lb) 05/01/2023 12:50 PM EDT Height 175.9 cm (5' 9.25") 05/01/2023 12:50 PM E DT Body Mass Index 25.51 05/01/2023 12:50 PM EDT documented in this encounter Functional Status Functional [...] as of this encounter Progress Notes * Manav De La Vega, DO - 05/01/2023 1:02 PM EDT Images from the original note were not included. Assessment and Plan Diabetes mellitus without complication (HCC) Stable A1C values Continue monitoring every 6 months - COMPREHENSIVE METABOLIC PANEL; Future - HEMOGLOBIN A1C; Future - ALBUMIN / CREATININE RATIO, URINE; Future ILD (interstitial lung disease) (HCC) Restrictive lung disease Ongoing monitoring, not using O2 And feeling ok Chronic ischemic heart disease No chest pain or new symptoms Atherosclerosis of aorta (HCC) Primary osteoarthritis of left knee Ongoing pain, working with Ortho Statin intolerance Old myocardial infarct Protein-calorie malnutrition, unspecified severity (HCC) Infection and inflammatory reaction due to other internal prosthetic devices, implants and grafts, initial encounter (HCC) Pelvic abscess in male (HCC) Dermatitis herpetiformis Celiac disease Dyslipidemia, goal LDL below 70 - COMPREHENSIVE METABOLIC PANEL; Future - LIPID PANEL WITH DIRECT LDL IF TG IS HIGH; Future B12 deficiency - CBC WITH WBC DIFFERENTIAL; Future - VITAMIN B12; Future History of Present Illness Michele Levy is a 82 year old male that presents for Return Visit (Pt here for 6 mo return.) Presents in f/u today Compliant with medication Going through eval with pain med for LUE pain and tingling 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 Constitutional: Appearance: Normal appearance. HENT: Head: Normocephalic and atraumatic. Right Ear: Tympanic membrane, ear canal and external ear normal. There is no impacted cerumen. Left Ear: Tympanic membrane, ear canal and external ear normal. There is no impacted cerumen. Nose: Nose normal. Mouth/Throat: Mouth: Mucous membranes are moist. Pharynx: Oropharynx is clear. Eyes: Extraocular Movements: Extraocular movements intact. Conjunctiva/sclera: Conjunctivae normal. Pupils: Pupils are equal, round, and reactive to light. Cardiovascular: Rate and Rhythm: Normal rate and regular rhythm. Heart sounds: Normal heart sounds. Pulmonary: Effort: Pulmonary effort is normal. Breath sounds: Normal breath sounds. Abdominal: General: Abdomen is flat. Palpations: Abdomen is soft. Musculoskeletal: General: Normal range of motion. Cervical back: Normal range of motion and neck supple. Lymphadenopathy: Cervical: No cervical adenopathy. Skin: General: Skin is warm and dry. Neurological: General: No focal deficit present. Mental Status: He is alert and oriented to person, place, and time. Wrap-Up Follow Up: Return in about 6 months (around 11/01/2023). Time: Total time today was 45 minutes excluding any time spent in the performance of separately billed services. documented in this encounter Plan of Treatment Upcoming Encounters Date Type Specialty Care Team Description 06/02/2023 Hospital Encounter Surgery Kevon Vela DO [address] [place] [address] 06/02/2023 Surgery Surgery Kevon Vela DO [address] [place] [address] INJECTION SPINE LUMBAR CERVICAL OR THORACIC 10/15/2023 Office Visit Orthopedics Wilfredo Vázquez, DO [address] [place] [address] 10/22/2023 Office Visit Orthopedics Wilfredo Vázquez, DO [address] [place] [address] 10/29/2023 Office Visit Orthopedics Wilfredo Vázquez, DO [address] [place] [address] 11/27/2023 Office Visit Family Medicine Manav De La Vega, DO [address] [place] [address] 05/03/2024 Office Visit [facility] Manav De La Vega, DO [address] [place] [address] Scheduled Orders Name Type Priority Associated Diagnoses Orde r Schedule CBC WITH WBC DIFFERENTIAL Lab Routine B12 deficiency Expected: 10/28/2023 (Approximate), Expires: 05/01/2024 COMPREHENSIVE METABOLIC PANEL Lab Routine Diabetes mellitus without complication (HCC) Dyslipidemia, goal LDL below 70 Expected: 10/28/2023 (Approximate), Expires: 05/01/2024 HEMOGLOBIN A1C Lab Routine Diabetes mellitus without complication (HCC) Expected: 10/28/2023 (Approximate), Expires: 05/01/2024 ALBUMIN / CREATININE RATIO, URINE Lab Routine Diabetes mellitus without complication (HCC) Expected: 10/28/2023 (Approximate), Expires: 05/01/2024 LIPID PANEL WITH DIRECT LDL IF TG IS HIGH Lab Routine Dyslipidemia, goal LDL below 70 Expected: 10/28/2023 (Approximate), Expires: 05/01/2024 VITAMIN B12 Lab Routine B12 deficiency Expected: 10/28/2023 (Approximate), Expires: 04/30/2024 Scheduled Procedures Name Priority Associated Diagnoses Date/Ti [...] exists Zoster Vaccines Completed 10/20/2020, 1212/2019, 10/28/2011 COVID-19 [...] this encounter Medical Devices Implanted Type Area Ocean Import Representative Device Identifier Shelf Expiration Date Model / Serial / Lot 15cm X 20cm Xenmatrix Surgical Graft, Rectangle Implanted:Qty : 1 on 01/29/2022 by Tom Broderick MD at OR [facility] Graft N/A: Abdomen CR BARD : DAVOL [id number] 09/11/2022 [id number] / [id number] / [id number] Trial Lead Kit 50 Cm 16 Contact Implanted:Qty : 1 on 10/20/2017 by Gloria Pardo MD at OR [facility] N/A: Spine Thoracic Prieto Battery : PAIN MGMT 08/08/2019 [id number] E / [id number] / Description:T9, 10,11 Clik X Mri Parachute Implanted:Qty : 1 on 12/01/2017 by Gloria Pardo MD at OR [facility] N/A: Back Prieto Battery : PAIN MGMT 07/15/2019 [id number] / / [id number] Device Fixate Suturing - [id number] Implanted:Qty : 1 on 05/02/2020 by Gloria Pardo MD at OR [facility] N/A: Back Prieto [employer] 03/21/2024 [id number] / / [id number] Trisha Thornton [id number] - [id number] Implanted:Qty : 1 on 02/08/2022 at [facility] COOK : DIAGNOSTIC INTERVENTION [id number] 10/10/2024 [id number] / / [id number] documented as of this encounter Visit Diagnoses Diagnosis Diabetes mellitus without complication ([facility])- Primary Type II or unspecified type diabetes mellitus without mention of complication, not stated as uncontrolled ILD (interstitial lung disease) (HCC) 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, unspecified Atherosclerosis of aorta (HCC) Atherosclerosis of aorta Primary osteoarthritis of left knee Primary localized osteoarthrosis, lower leg Statin intolerance Other drug allergy Old myocardial infarct Old myocardial infarction Protein-calorie malnutrition, unspecified severity (HCC) Infection and inflammatory reaction due to other internal prosthetic devices, implants and grafts, initial encounter ([facility]) Pelvic abscess in male (HCC) Dermatitis herpetiformis Celiac disease Dyslipidemia, goal LDL below 70 Other and unspecified hyperlipidemia B12 deficiency Other B-complex deficiencies Cervical radiculitis Brachial neuritis or radiculitis nos [...] the patient have Health Care Power of Interventional Radiology Technologist? No Full Code 12/13/2015 11:19 AM 12/16/2015 5:05 PM This order reflects the patients wishes and were consensually agreed upon. Question Answer Comments Discussion of Advance Directives occurred with: Patient Does the patient have a Living Will? No Does the patient have Health Care Power of Interventional Radiology Technologist? No Care Teams Script Reader Relationship Specialty Start Date End Date Manav De La Vega DO [address] [place] [address] PCP - General Family Medicine 04/16/18 documented as of this encounter
--- OUTSIDE RECORDS SUMMARY | 2023-08-12 13:44 | External Medical Summary | Summary of Care ---
Author Name Unknown Organization [facility] Address [address] [facility] [address] Phone [phone] Care Team Providers Care Wool Spotter Name Role Phone Anna De La Vega DO Primary Care Provider Reason for Visit * Reason Comments Medication Refill Encounter Details Date Type Department Care Team Description 05/01/2023 Refill Family Practice [facility] [address] [place] [address] Anna De La Vega DO [address] [place] [address] Allergies Active Allergy Reactions Severity Noted Date Comments Codeine Itching 05/20/2012 adverse reactions In large amounts only Gluten Itching 05/29/2005 Breaking out in blisters Gluten Meal Low 11/28/2022 Other reaction(s): rash Iodine Itching 02/28/2011 oral Atorvastatin Calcium Muscle pain 02/21/2014 Meloxicam Renal complications Medium 09/24/2017 Penicillins Rash 08/16/2002 Tramadol Hcl 08/07/2011 Bad stomach problems documented as of this encounter (statuses as of 05/02/2023) Medications Medication Sig Dispensed Refills Start Date [...] as of this encounter (statuses as of 05/02/2023) Active Problems Problem Noted Date 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 11/21/2022 Atherosclerosis of [place] 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 pectoris 11/22/2021 [...] as of this encounter (statuses as of 05/02/2023) Resolved Problems Problem Noted Date Resolved Date [...] as of this encounter (statuses as of 05/02/2023) Immunizations Name Administration Dates Next Due COVID-19 mRNA, LNP-s, No Pre serve, 2-Dose Series ([employer]) 12/07/2020,11/16/2020 COVID-19, LNP-s, No Preserve , Justice-sucrose, [...] encounter Miscellaneous Notes * Telephone Encounter - Anisa Isaac RPh - 05/02/2023 8:06 AM EDTSigned Prescriptions: Disp Refills Albuterol Sulfate HFA 108 (90 Base) MCG/AC*18 g 1 Sig: INHALE 2PUFFS BY MOUTH 4 TIMES DAILYAuthorizing Provider: ANNA DE LA VEGA User: ANISA ISAAC documented in this encounter Plan of Treatment Upcoming Encounters Date Type Specialty Care Team Description 06/02/2023 Hospital Encounter Surgery Kevon Vela, DO [address] [place] [address] 06/02/2023 Surgery Surgery Kevon Vela, [address] [place] [address] INJECTION SPINE LUMBAR CERVICAL OR THORACIC 10/15/2023 Office Visit Orthopedics Wilfredo Vázquez, DO [address] [place] [address] 10/22/2023 Office Visit Orthopedics Wilfredo Vázquez, DO [address] [place] [address] 10/29/2023 Office Visit Orthopedics Wilfredo Vázquez, DO [address] [place] [address] 11/27/2023 Office Visit Family Medicine Anna De La Vega, DO [address] [place] [address] 05/03/2024 Office Visit Family Medicine Anna De La Vega, DO [address] [place] [address] Scheduled Procedures Name Priority Associated Diagnoses Date/Ti [...] this encounter Medical Devices Implanted Type Area Varitype Operator Device Identifier Shelf Expiration Date Model / Serial / Lot 15cm X 20cm Xenmatrix Surgical Graft, Rectangle Implanted:Qty : 1 on 01/29/2022 by Tom Broderick MD at [place] [facility] Graft N/A: Abdomen CR BARD : DAVOL [id number] 09/11/2022 [id number] / [id number] / [id number] Trial Lead Kit 50 Cm 16 Contact Implanted:Qty : 1 on 10/20/2017 by Gloria Pardo MD at OR [facility] N/A: Spine Thoracic Tsukulink : PAIN MGMT 08/08/2019 [id number] / [id number] / Description:T9, 10,11 Clik X Mri Gre[place] Implanted:Qty : 1 on 12/01/2017 by Gloria Pardo MD at OR [facility] N/A: Back Tsukulink : PAIN MGMT 07/15/2019 [id number] / / [id number] Device Fixate Suturing - [id number] Implanted:Qty : 1 on 05/02/2020 by Gloria Pardo MD at OR [facility] N/A: Back Mister Mario 03/21/2024 [id number] / / [id number] Trisha Thornton [id number] - [id number] Implanted:Qty : 1 on 02/08/2022 at [facility] COOK : DIAGNOSTIC INTERVENTION [id number] 10/10/2024 [id number] / / [id number] documented as of this encounter Advance Directives [...] the patient have Health Care Power of Automotive Parts Salesperson? No Full Code 12/13/2015 11:19 AM 12/16/2015 5:05 PM This order reflects the patients wishes and were consensually agreed upon. Question Answer Comments Discussion of Advance Directives occurred with: Patient Does the patient have a Living Will? No Does the patient have Health Care Power of Automotive Parts Salesperson? No Care Teams Wool Spotter Relationship Specialty Start Date End Date Anna De La Vega DO [address] [place] [address] PCP - General Family Medicine 04/16/18 documented as of this encounter
--- OUTSIDE RECORDS SUMMARY | 2023-08-12 13:44 | External Medical Summary | Summary of Care ---
Author Name Unknown Organization [facility] Address [address] [address] Phone [phone] Care Team Providers Care Tunnel Kiln Repairer Name Role Phone Manav De La Vega DO Primary Care Provider Reason for Visit * Reason Onset Date Comments Fax 06/12/2023 Encounter Details Date Type Department Care Team Description 06/12/2023 Telephone Family Practice [facility] [address] [place] [address] Manav De La Vega DO [address] [place] [address] Fax Allergies Active Allergy Reactions Severity Noted Date Comments Codeine Itching 05/20/2012 adverse reactions In large amounts only Gluten Itching 05/29/2005 Breaking out in blisters Gluten Meal Low 11/28/2022 Other reaction(s): rash Iodine Itching 02/28/2011 oral Atorvastatin Calcium Muscle pain 02/21/2014 Meloxicam Renal complications Medium 09/24/2017 Penicillins Rash 08/16/2002 Tramadol Hcl 08/07/2011 Bad stomach problems documented as of this encounter (statuses as of 06/17/2023) Medications Medication Sig Dispensed Refills Start Date [...] Other (pain). 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 pectoris [...] as of this encounter (statuses as of 06/17/2023) Resolved Problems Problem Noted Date Resolved Date [...] as of this encounter (statuses as of 06/17/2023) Immunizations Name Administration Dates Next Due COVID-19 mRNA, LNP-s, No Pre serve, 2-Dose Series (ioSemantics) 12/07/2020,11/16/2020 COVID-19, LNP-s, No Preserve , Justice-sucrose, Ages 12+ (ioSemantics) 01/04/2022 Covid-19, Mrna, Lnp-s, Pf, B ivalent, [...] encounter Miscellaneous Notes * Telephone Encounter - Isabelle Gray LPN - 06/17/2023 8:10 AM EDT faxed * Telephone Encounter - ACE Ohara - 06/12/2023 3:08 PM EDT Caller requesting the following information to be faxed: Name/Company of caller: [employer] Information requested to be faxed: [facility] [employer] [facility] [employer] Fax number: [phone] Attention to Name/Company: [facility] [employer] Any additional information?: n/a documented in this encounter Plan of Treatment Upcoming Encounters Date Type Specialty Care Team Description 08/01/2023 Hospital Encounter Surgery Kevon Vela, DO [address] [place] [id number] 08/01/2023 Surgery Surgery Kevon Vela, DO [address] [place] [phone] INJECTION SPINE LUMBAR CERVICAL OR THORACIC 10/15/2023 Office Visit Orthopedics Wilfredo Vázquez, DO [address] [place] [address] 10/22/2023 Office Visit Orthopedics Wilfredo Vázquez, DO [address] [place] [address] 10/29/2023 Office Visit Orthopedics Wilfredo Vázquez, DO [address] [place] [address] 11/27/2023 Office Visit Family Medicine Manav De La Vega, DO [address] [place] [address] 05/03/2024 Office Visit Family Medicine Manav De La Vega, DO [address] [place] [address] Scheduled Procedures Name Priority Associated Diagnoses Date/Ti [...] this encounter Medical Devices Implanted Type Area Spring Bender Device Identifier Shelf Expiration Date Model / Serial / Lot 15cm X 20cm Xenmatrix Surgical Graft, Rectangle Implanted:Qty : 1 on 01/29/2022 by Tom Broderick MD at OR [facility] [place] Graft N/A: Abdomen CR BARD : DAVOL [id number] 09/11/2022 [id number] / [id number] / [id number] Trial Lead Kit 50 Cm 16 Contact Implanted:Qty : 1 on 10/20/2017 by Gloria Pardo MD at OR [facility] N/A: Spine Thoracic [employer] : PAIN MGMT 08/08/2019 [facility] [id number] / [id number] / Description:T9, 10,11 Clik X Mri [place] Implanted:Qty : 1 on 12/01/2017 by Gloria Pardo MD at OR [facility] N/A: Back [employer] : PAIN MGMT 07/15/2019 [id number] / / [id number] Device Fixate Suturing - [id number] Implanted:Qty : 1 on 05/02/2020 by Gloria Pardo MD at OR [facility] N/A: Back Remedify 03/21/2024 [id number] / / [id number] Trisha Thornton [id number] - [id number] Implanted:Qty : 1 on 02/08/2022 at [facility] : DIAGNOSTIC INTERVENTION [id number] 10/10/2024 [id number] / / [id number] documented as of this encounter Advance Directives [...] the patient have Health Care Power of Pipeline Dispatch Operator? No Full Code 12/13/2015 11:19 AM 12/16/2015 5:05 PM This order reflects the patients wishes and were consensually agreed upon. Question Answer Comments Discussion of Advance Directives occurred with: Patient Does the patient have a Living Will? No Does the patient have Health Care Power of Pipeline Dispatch Operator? No Care Teams Tunnel Kiln Repairer Relationship Specialty Start Date End Date Manav De La Vega DO [address] [place] [address] PCP - General Family Medicine 04/16/18 documented as of this encounter
--- OUTSIDE RECORDS SUMMARY | 2023-08-12 13:45 | External Medical Summary | Summary of Care ---
Author Name Unknown Organization [facility] Address [address] [place] [address] Phone [phone] Care Team Providers Care Route Driver Coin Machines Name Role Phone Manav De La Vega DO Primary Care Provider Reason for Referral * Evaluate & Treat - Unlimited Visits (Within 10 days (routine)) - Authorized Specialty Diagnoses / Procedures Referred By Contlucía perera Referred To Contact Pain Management / Pain Medicine Diagnoses Chronic pain syndrome Mnaav De La Vega, DO [address] [place] [address] Kevon Vela, [address] [place] [address] Referral ID Status Reason Start Date Expiration Date Visits Requested Visits Authorized [id number] Authorized Specialty Services Required 04/14/2023 999 999 Question Answer Referral Priority Within 10 days (routine) Reason for referral? Interventional Pain Management - (Injection) What is the preferred location to have this test performed? [facility] Comments Patient Name: Michele Levy Date of : 1940 Department Phone Number: MRI or CT (if unable to have a MRI) is recommended if any of the following apply: 1. Patient has neck or back pain with radiation to extremities. A previous MRI will be accepted if symptoms unchanged since prior MRI. 2. Spinal surgery since last MRI. If yes, order a MRI with and without contrast. 3. Hx or ongoing cancer treatment. Patient will need spine x-ray (Ap/Lat) for axial neck or back pain if not done previously. Fax No. [facility] [phone] or contact front desk host [phone] Fax No. [facility] [phone] or contact front desk host [phone] Fax No. [facility] [phone] or contact front desk host [phone] Reason for Visit * Reason Onset Date Comments Appointment 04/14/2023 Encounter Details Date Type Department Care Team Description 04/14/2023 Telephone Family Practice [facility] [address] [place] [address] Manav De La Vega DO [address] [place] [address] Appointment Allergies Active Allergy Reactions Severity Noted Date Comments Codeine Itching 05/20/2012 adverse reactions In large amounts only Gluten Itching 05/29/2005 Breaking out in blisters Gluten Meal Low 11/28/2022 Other reaction(s): rash Iodine Itching 02/28/2011 oral Atorvastatin Calcium Muscle pain 02/21/2014 Meloxicam Renal complications Medium 09/24/2017 Penicillins Rash 08/16/2002 Tramadol Hcl 08/07/2011 Bad stomach problems documented as of this encounter (statuses as of 04/16/2023) Medications Medication Sig Dispensed Refills Start Date [...] by mouth in the morning. 0 Active diphenhydrAMINE HCl 25 MG Oral Capsule (Benadryl Allergy) Take 2 tabs by mouth [address] scan. 2 Cap 0 07/18/2021 Active Polyethylene Glycol 3350 17 GM/SCOOP Oral [...] 15 Tablet 0 02/04/2022 Active oxygen IN GASIndications:Noct urnal hypoxemia,Acute respiratory failure due to COVID-19 (HCC) Discontinue standing oxygen concentrator and portable oxygen tank. 1 Each 0 05/08/2022 Active Lisinopril 5 MG Oral Tablet (Prinivil)Indicatio [...] 60 MG Oral Capsule Delayed Release Particles (Cymbalta)Indicatio ns:Chronic pain syndrome TAKE 1 CAPSULE BY MOUTH IN THE MORNING 90 Capsule 3 10/29/2022 4 Active Additional Information Patient not taking.Reported on 02/25/2023 DULoxetine HCl 30 MG Oral Capsule Delayed Release Particles (Cymbalta)Indicatio ns:Chronic pain syndrome TAKE1 CAPSULE BY MOUTH IN THE AFTERNOON FOR A TOTAL OF 90MG DAILY. DO NOT CUT, CRUSH OR CHEW 90 Capsule 3 10/29/2022 4 Active Additional Information Patient not taking.Reported on 02/25/2023 oxygen IN GASIndications:Binder Lockstitch patrice respiratory failure with hypoxia (HCC),ILD (interstitial lung disease) (HCC) 2 LPM via NC with ambulation. Titrate for an SpO2 of 90-94%. 1 Each 0 10/29/2022 Active Finasteride 5 MG Oral Tablet (Proscar)Indication s:BPH with obstruction/lower urinary tract symptoms TAKE ONE TABLET BY MOUTH DAILY 90 Tablet 3 11/21/2022 4 Active Gabapentin 600 MG Oral Tablet (Neurontin)Indicati [...] MOUTH DAILY 90 Tablet 1 01/15/2023 Active HYDROcodone-Acetami nophen 10-325 MG Oral TabletIndications:L umbar radiculitis Take 1 Tablet by mouth every 6 hours as needed for pain 120 Tablet 0 03/27/2023 Active documented as of this encounter (statuses as of 04/16/2023) Active Problems Problem Noted Date Spinal cord stimulator status 11/21/2022 Ileus, postoperative 02/08/2022 Pelvic abscess in male 02/08/2022 Infected hernioplasty mesh 02/04/2022 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 11/22/2021 [...] as of this encounter (statuses as of 04/16/2023) Resolved Problems Problem Noted Date Resolved Date Acute respiratory failure due to COVID-19 202101/10/2022 HTN, goal below 130/80 04/27/2014 8 BENIGN NEOPLASM LG BOWEL 08/14/2006 019 Overview: Colonoscopy 08/04/06--adenomatous--repeat 5 years Other ventral hernia without mention of obstruction or gangrene 08/16/2002 12/15/2018 documented as of this encounter (statuses as of 04/16/2023) Immunizations Name Administration Dates Next Due COVID-19 mRNA, LNP-s, No Pre serve, 2-Dose Series (nGAP) 12/07/2020,11/16/2020 COVID-19, LNP-s, No Preserve , Justice-sucrose, [...] encounter Miscellaneous Notes * Telephone Encounter - Alexa De La Vega - 04/16/2023 8:55 AM EDT LM for pt to call back to schedule with Dr Vela. * Telephone Encounter - Alexa De La Vega - 04/14/2023 10:55 AM EDT LM for pt to call back to schedule with Dr Vela. * Telephone Encounter - Livia Bang RN - 04/14/2023 10:52 AM EDT Please help pt set up pain management appt Provider to address: NA Reason for Call: No chief complaint on file. Contact: Telephone Call Contact Type: Referral(s) Placed Outcome: pain management Face to face time spent with Patient (minutes): 0 Total Time including non face to face (minutes): 10 * Telephone Encounter - Batsheva oNrman LPN - 04/14/2023 9:21 AM EDT Pt came into clinic-- Requesting Pain mgmt referral for Dr[facility] Vela [facility] at [facility]. Pt has gotteninjection in the past in his "C disc" area by Dr. Heart and a doc in [facility]. Please review and sign, pt aware that Pm will call to schedule appt. documented in this encounter Plan of Treatment Upcoming Encounters Date Type Specialty Care Team Description 05/01/2023 Office Visit Family Medicine Manav De La Vega, DO [address] [place] [address] 10/15/2023 Office Visit Orthopedics Wilfredo Vázquez, DO [address] [place] [address] 10/22/2023 Office Visit Orthopedics Wilfredo Vázquez, DO [address] [place] [address] 10/29/2023 Office Visit Orthopedics Wilfredo Vázquez, DO [address] [place] [address] Scheduled Procedures Name Priority Associated Diagnoses Date/Ti me COLONOSCOPY FLEXIBLE PROXIMAL DIAGNOSTIC Recall History of colon polyps Scheduled Referrals Name Type Priority Associated Diagnoses Orde r Schedule PAIN MEDICINE REFERRAL OP Referral Within 10 days (routine) Chronic pain syndrome Ordered: 04/14/2023 Health Maintenance Due Date Last Done Comments DIABETES-EYE EXAM 1958 DIABETES-FOOT EXAM 1958 COLONOSCOPY-EVERY 5 YRS AGES 18-100 12/17/2021 12/17/2016, 12/17/2016, 02/28/2011, Additional history exists Depression Screening, Annual for Pts 12 and Over 08/30/2022 08/30/2021 DTaP,Tdap,and Td Vaccines (2 - Td or Tdap) 10/05/2022 10/05/2012 Influenza Vaccine (FLU shot) (#1) 2023 07/16/2022, 05/29/2021, 07/31/2020, Additional history exists HbA1c 10/01/2023 03/31/2023, 0 02/2022, 11/22/2021, Additional history exists Albumin/Creatinine Ratio 03/31/2024 03/31/2023 GFR 03/31/2024 03/31/2023, 0 02/2022, 02/09/2022, Additional history exists Pneumococcal Vaccine: 65+ Years Completed 06/07/2015, 09/29/2012 Zoster Vaccines Completed 10/20/2020, 12/2019, 10/28/2011 COVID-19 Vaccine Completed 10/11/2022, , [...] this encounter Medical Devices Implanted Type Area Sledger Device Identifier Shelf Expiration Date Model / Serial / Lot 15cm X 20cm Xenmatrix Surgical Graft, Rectangle Implanted:Qty : 1 on 01/29/2022 by [place] Broderick [place] [facility] N/A: Abdomen CR BARD : DAVOL [id number] 09/11/2022 [id number] / [id number] / [id number] Trial Lead Kit 50 Cm 16 Contact Implanted:Qty : 1 on 10/20/2017 by Gloria Pardo MD at OR [facility] N/A: Spine Thoracic [employer] : PAIN MGMT 08/08/2019 [facility] [id number] E / [id number] / Description:T9, 10,11 Clik X Mri [place] Implanted:Qty : 1 on 12/01/2017 by Gloria Pardo MD at OR [facility] N/A: Back [employer] : PAIN MGMT 07/15/2019 [id number] / / [id number] Device Fixate Suturing - [id number] Implanted:Qty : 1 on 05/02/2020 by Gloria Pardo MD at OR [facility] N/A: Back 8[employer] Story 03/21/2024 [id number] / / [id number] Trisha Thornton [id number] - [id number] Implanted:Qty : 1 on 02/08/2022 at [facility] : DIAGNOSTIC INTERVENTION [id number] 10/10/2024 [id number] / / [id number] documented as of this encounter Visit Diagnoses Diagnosis Chronic pain syndrome- Primary documented in this encounter Advance Directives Latest [...] the patient have Health Care Power of Anthropologist? No Full Code 12/13/2015 11:19 AM 12/16/2015 5:05 PM This order reflects the patients wishes and were consensually agreed upon. Question Answer Comments Discussion of Advance Directives occurred with: Patient Does the patient have a Living Will? No Does the patient have Health Care Power of Anthropologist? No Care Teams Route Driver Coin Machines Relationship Specialty Start Date End Date Manav De La Vega DO [address] [place] [address] PCP - General Family Medicine 04/16/18 documented as of this encounter
--- OUTSIDE RECORDS SUMMARY | 2023-08-12 13:45 | External Medical Summary | Summary of Care ---
Author Name Unknown Organization [facility] Address [address] [place] [address] Phone [phone] Care Team Providers Care Transportation Planning Technician Name Role Phone Manav De La Vega DO Primary Care Provider Reason for Visit * Reason Comments Neck Pain * Evaluate & Treat - Unlimited Visits (Within 10 days (routine)) - Authorized Specialty Diagnoses / Procedures Referred By Josh perera Referred To Contact Pain Management / Pain Medicine Diagnoses Chronic pain syndrome Manav De La Vega DO [address] [place] [address] Kevon Vela DO [address] [place] [address] Referral ID Status Reason Start Date Expiration Date Visits Requested Visits Authorized [id number] Authorized Specialty Services Required 04/14/[phone] Encounter Details Date Type Department Care Team Description 04/18/2023 Office Visit [facility], [facility] [address] [place] [address] Kevon Vela DO [address] [place] [phone] Chronic radicular cervical pain*; DDD (degenerative disc disease), cervical Allergies Active Allergy Reactions Severity Noted Date Comments Codeine Itching 05/20/2012 adverse reactions In large amounts only Gluten Itching 05/29/2005 Breaking out in blisters Gluten Meal Low 11/28/2022 Other reaction(s): rash Iodine Itching 02/28/2011 oral Atorvastatin Calcium Muscle pain 02/21/2014 Meloxicam Renal complications Medium 09/24/2017 Penicillins Rash 08/16/2002 Tramadol Hcl 08/07/2011 Bad stomach problems documented as of this encounter (statuses as of 04/18/2023) Medications Medication Sig Dispensed Refills Start Date [...] For constipation. 15 Tablet 0 2 Active oxygen IN GASIndications:Noc turnal hypoxemia,Acute respiratory failure due to COVID-19 (HCC) Discontinue standing oxygen concentrator and portable oxygen tank. 1 Each 0 2 Active Lisinopril 5 MG Oral Tablet (Prinivil)Indicati ons:HTN, goal below 140/90 TAKE 1 TABLET BY MOUTH IN THE EVENING. 90 Tablet 3 2 08/02/20 23 Active Diclofenac Sodium 1 % External Gel (Voltaren) PLACE 4 GRAM TOPICALLY ON THE SKIN 2 TIMES A DAY. 100 g 6 2 06/13/20 23 Active Dapsone 25 MG Oral Tablet TAKE 2 TABLETS BY MOUTH DAILY NEEDED FOR ITCHING 60 Tablet 2 3 Active Pantoprazole Sodium 40 MG Oral Tablet Delayed Release (Protonix)Indicati ons:High grade dysplasia of Cadet's epithelium Take 1 Tablet by mouth in the morning. 90 Tablet 3 3 Active Sildenafil Citrate 50 MG Oral TabletIndications: Combined arterial insufficiency and corporo-venous occlusive erectile dysfunction Take 1/2 to 1 tablet by mouth 30 minutes prior to intercourse as needed for erectile dysfunction. 30 Tablet 2 3 Active DULoxetine HCl 60 MG Oral Capsule Delayed Release Particles (Cymbalta)Indicati ons:Chronic pain syndrome TAKE 1 CAPSULE BY MOUTH IN THE MORNING 90 Capsule 3 3 10/29/19 24 Active Additional Information Patient not taking.Reported on 02/25/2023 DULoxetine HCl 30 MG Oral Capsule Delayed Release Particles (Cymbalta)Indicati ons:Chronic pain syndrome TAKE1 CAPSULE BY MOUTH IN THE AFTERNOON FOR A TOTAL OF 90MG DAILY. DO NOT CUT, CRUSH OR CHEW 90 Capsule 3 3 10/29/19 24 Active Additional Information Patient not taking.Reported on 04/18/2023 oxygen IN GASIndications:Chr onic respiratory failure with hypoxia (HCC),ILD (interstitial lung disease) (HCC) 2 LPM via NC with ambulation. Titrate for an SpO2 of 90-94%. 1 Each 0 3 Active Finasteride 5 MG Oral Tablet (Proscar)Indicatio ns:BPH with obstruction/lower urinary tract symptoms TAKE ONE TABLET BY MOUTH DAILY 90 Tablet 3 3 11/21/19 24 Active Gabapentin 600 MG Oral Tablet (Neurontin)Indicat ions:Lumbar radiculitis TAKE 1 TABLET BY MOUTH IN THE MORNING, TAKE 1 AND 1/2 TABLETS AT NOON AND TAKE 1 TABLET IN THE EVENING 315 Tablet 3 3 11/21/19 24 Active tiZANidine HCl 2 MG Oral Tablet (Zanaflex)Indicati ons:Lumbar radiculopathy Take 1 Tablet by mouth 2 times a day as needed. 90 Tablet 1 3 Active Ezetimibe 10 MG Oral Tablet (Zetia) TAKE ONE TABLET (10MG) BY MOUTH DAILY 90 Tablet 1 3 Active HYDROcodone-Acetam inophen 10-325 MG Oral TabletIndications: Lumbar radiculitis Take 1 Tablet by mouth every 6 hours as needed for pain 120 Tablet 0 3 Active diphenhydrAMINE HCl 50 MG Oral Capsule (Benadryl) Take 1 capsule by mouth 1 hour prior to scheduled spine procedure. 1 Capsule 0 3 Active predniSONE 50 MG Oral Tablet (Deltasone) Take 1 tablet by mouth 13 hours prior and 1 tablet 1 hour prior to scheduled procedure. Take with food and water. 2 Tablet 0 3 Active diphenhydrAMINE HCl 25 MG Oral Capsule (Benadryl Allergy) Take 2 tabs by mouth [address] scan. 2 Cap 0 1 04/18/20 23 Discontinued documented as of this encounter (statuses as of 04/18/2023) Active Problems Problem Noted Date Spinal cord stimulator status 11/21/2022 Ileus, postoperative 02/08/2022 Pelvic abscess in male 02/08/2022 Infected hernioplasty mesh 02/04/2022 Atherosclerosis of [place] 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 pectoris 11/22/2021 Protein-calorie malnutrition 11/22/2021 Diabetes mellitus without complication 0 11/22/2021 Pleural plaque due to asbestos exposure 09/27/2021 ILD (interstitial lung disease) 09/27/19 22 SBO (small bowel obstruction) 08/05/2021 Atherosclerosis of [...] intolerance 04/27/2014 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 Information booklet given to patient. documented as of this encounter (statuses as of 04/18/2023) Resolved Problems Problem Noted Date Resolved Date Acute respiratory failure due to COVID-19 202101/10/2022 HTN, goal below 130/80 04/27/2014 8 BENIGN NEOPLASM LG BOWEL 08/14/2006 019 Overview: Colonoscopy 08/04/06--adenomatous--repeat 5 years Other ventral hernia without mention of obstruction or gangrene 08/16/2002 12/15/2018 documented as of this encounter (statuses as of 04/18/2023) Immunizations Name Administration Dates Next Due COVID-19 mRNA, LNP-s, No Pre serve, 2-Dose Series (ideasoft) 12/07/2020,11/16/2020 COVID-19, LNP-s, No Preserve , Justice-sucrose, [...] as of this encounter Progress Notes * Kevon Vela DO - 04/18/2023 1:10 PM EDT Interventional Pain Consult Dear Manav De La Vega DO, thank you for your kind referral of Michele Levy. Chief Complaint: Chief Complaint Patient presents with Neck Pain History of Present Illness: As you know, Michele Levy is a very pleasant 82 year old male with a past medical history significant for cervical spondylosis with radiculopathy, SBO, ischemic heart disease, ILD, ileus, celiac disease, osteoarthritis, BPH, DM 2, HLD, HTN, pleural plaques, s/p SCS placement and who was referredto the pain clinic for evaluation for cervical radicular pain. The pain is located in the left hand and upper extremity, and it does radiate proximally up the arm. He describes it as a painful, numb, burning, stinging sensation. The pain started about a few months ago, after no noticeable injury. Aggravating factors include: sleeping. Alleviating factors include: denies. The pain is present 100 % of time. His current pain score is 4/10, locating to his hand.His pain at its least is 1-2 / 10. His worst pain is 7-8 / 10. Has a Context Relevant SCS placed by Dr. Pardo. Dual lead placement. Requests reprogramming. Denies weakness. Reports numbness. Denies bowel or bladder incontinence. Denies symptoms of saddle anesthesia. Denies fevers/chills/night sweats. Denies unintentional weight loss. Current Pertinent Medications: Hydrocodone Duloxetine Medications Trialed for this Issue Previously: Acetaminophen: Yes, explain: helps Steroids: yes, as above NSAIDS: No, explain: Anticonvulsants: gabapentin Muscle Relaxants: No, explain: Topical Agents: No, explain: Sleep Aids: No, explain: Anti-Depressants: previously duloxetine Opioids: No, explain: Other: Pertinent Medications Poorly Tolerated Previously: Codeine, meloxicam, ultram Interventional Pain Procedures: SCS in place for lower back OSMAN injections for this x 2. One with Dr. Heart and one with Dr. Dias. LESI for lower back injections Pertinent Surgeries: denies Physical Therapy: Not recently Other Therapies: Psychosocial Factors: He denies feeling depressed. He denies feeling anxiety. He denies} any suicidal or homicidal ideation.He denies consulting with a behavorial health specialist before. He denies tobacco use. He denies} alcohol use. He denies personal history of substance abuse. He denies family history of substance abuse. He denies pending litigation, worker's compensation, or disability claims related to reported issue. Review of Systems: A comprehensive 14-pt ROS were of reviewed with the patient including difficulty with sleep, snoring, aspiration history, dysphagia, stomach pain, nausea and vomiting, severe headaches, confusion, open skin lesions or wounds, chest pain, shortness of breath, excessive thirst, somnolence, dysuria, incomplete bladder emptying, easy bruising, recent clotting problems or bleeding, depression or rushed thoughts unless noted previously. Past Medical History: Diagnosis Date CADET'S ESOPHAGUS resolved with surgery BENIGN NEOPLASM LG BOWEL 08/14/2006 Colonoscopy 08/04/06--adenomatous--repeat 5 years Celiac disease 11/20/06 well controlled with diet Dermatitis herpetiformis gerd ILD (interstitial lung disease) (HCC) Myocardial infarction (HCC) 06/2011 NSTEMI, multivessel disease by cath, medical Rx Other ventral hernia without mention of obstruction or gangrene 08/16/2002 Pneumonia Pulmonary arterial hypertension (HCC) Past Surgical History: Procedure Laterality Date COLONOSCOPY, DIAGNOSTIC (RECTUM) 12/17/2016 diverticulosis, repeat 5 yrs/COLONOSCOPY FLEXIBLE PROXIMAL DIAGNOSTIC performed by Angel Douglass MD at [facility]COPY [facility] COLONOSCOPY, GI REFERRAL OP 08/04/06 adenomatous--repeat 5 years COLORECTAL CANCER SCREEN; NOT AT RISK 02/28/11 repeat in 5 years EGD, FLEXIBLE, DIAGNOSTIC 04/26/2013 UPPER GI ENDOSCOPY DIAGNOSTIC performed [place] Paco Nowak MD [place] [facility] [place]GD, FLEXIBLE, DIAGNOSTIC 07/12/2013 UPPER GI ENDOSCOPY DIAGNOSTIC performed by Paco Nowak MD [place] [facility] [place]GD, FLEXIBLE, DIAGNOSTIC 01/04/2014 ESOPHAGOGASTRODUODENOSCOPY (EGD), FLEXIBLE, TRANSORAL, DIAGNOSTIC performed by Angel Douglass MD at ENDOSCOPY [facility] EGD, FLEXIBLE, DIAGNOSTIC 06/30/2014 normal bx, repeat 1 yr/ESOPHAGOGASTRODUODENOSCOPY (EGD), FLEXIBLE, TRANSORAL, DIAGNOSTIC performed by Angel Douglass MD at ENDOSCOPY [facility] EGD, FLEXIBLE, DIAGNOSTIC 07/20/2015 inflammation on bx, HH, repeat 2 yrs/ESOPHAGOGASTRODUODENOSCOPY (EGD), FLEXIBLE, TRANSORAL, DIAGNOSTIC performed by Angel Douglass MD at ENDOSCOPY [facility] EGD, FLEXIBLE, DIAGNOSTIC 08/26/2017 [place], hiatal hernia, repeat 2 yrs/ESOPHAGOGASTRODUODENOSCOPY (EGD), FLEXIBLE, TRANSORAL, DIAGNOSTIC performed by Angel Douglass MD at ENDOSCOPY [facility] EGD, FLEXIBLE, DIAGNOSTIC 10/13/2019 [place]/ESOPHAGOGASTRODUODENOSCOPY (EGD), FLEXIBLE, TRANSORAL, DIAGNOSTIC performed by Angel Douglass MD at ENDOSCOPY [facility] EGD, FLEXIBLE, W/BIOPSY 11/20/06 paths-normal EVAL NEUROSTIM PULSE GEN, W/ REPROGRAM N/A 10/20/2017 NEUROSTIMULATOR PULSE GENERATOR/ TRANSMITTER, WITH INTRAOPERATIVE OR SUBSEQUENT PROGRAMMING performed by Gloria Pardo MD at OR [facility] EVAL NEUROSTIM PULSE GEN, W/ REPROGRAM N/A 12/01/2017 NEUROSTIMULATOR PULSE GENERATOR/ TRANSMITTER, WITH INTRAOPERATIVE OR SUBSEQUENT PROGRAMMING performed by Gloria Pardo MD at OR [facility] EVAL NEUROSTIM PULSE GEN, W/ REPROGRAM N/A 05/02/2020 NEUROSTIMULATOR PULSE GENERATOR/ TRANSMITTER, WITH INTRAOPERATIVE OR SUBSEQUENT PROGRAMMING performed by Gloria Pardo MD at OR [facility] IMPLANT EPIDURAL NEUROELECTRODES N/A 10/20/2017 PERCUTANEOUS IMPLANTATION NEUROSTIMULATOR EPIDURAL performed by Gloria Pardo MD at OR [facility] IMPLANT EPIDURAL NEUROELECTRODES N/A 12/01/2017 PERCUTANEOUS IMPLANTATION NEUROSTIMULATOR EPIDURAL performed by Gloria Pardo MD at OR [facility] IMPLANT EPIDURAL NEUROELECTRODES N/A 05/02/2020 PERCUTANEOUS IMPLANTATION NEUROSTIMULATOR EPIDURAL performed by Gloria Pardo MD at OR [facility] IMPLANT SPINAL NEURORECEIVER N/A 12/01/2017 INSERTION OR REPLACEMENT SPINAL NEUROSTIMULATOR GENERATOR performed by Gloria Pardo MD at OR [facility] IMPLANT SPINAL NEURORECEIVER N/A 05/02/2020 INSERTION OR REPLACEMENT SPINAL NEUROSTIMULATOR GENERATOR performed by Gloria Pardo MD at OR [facility] INFORMATION Bilateral knee arthroscopy INFORMATION Bilateral shoulder arthroscopy INFORMATION 12/01/2017 Precision Montage Neurostimulator model# SC-1200 leads# [id number] INJECT DX/THER SUBSTANCE INTERLAMINAR CERVICAL/THORACIC W IMAGE GUIDE 09/14/2020 INJECTION SPINE LUMBAR CERVICAL OR THORACIC performed by Cortez Heart DO at OR [facility] INJECT DX/THER SUBSTANCE INTERLAMINAR LUMBAR/SACRAL W IMAGE GUIDE N/A 10/25/2016 INJECTION SPINE LUMBAR OR SACRAL performed by Gloria Pardo MD at OR [facility] INJECT DX/THER SUBSTANCE INTERLAMINAR LUMBAR/SACRAL W IMAGE GUIDE N/A 01/17/2017 INJECTION SPINE LUMBAR OR SACRAL performed by Gloria Pardo MD at OR [facility] INJECT DX/THER SUBSTANCE INTERLAMINAR LUMBAR/SACRAL W IMAGE GUIDE N/A 06/23/2017 INJECTION SPINE LUMBAR OR SACRAL performed by Gloria Pardo MD at OR [facility] INJECT DX/THER SUBSTANCE INTERLAMINAR LUMBAR/SACRAL W IMAGE GUIDE N/A 08/29/2017 INJECTION SPINE LUMBAR OR SACRAL performed by Gloria Pardo MD at OR [facility] IR ASPIRATION ABSCESS/COLLECTION 02/08/2022 LUMBAR HEMILAMINECTOMY Right 12/13/2015 LAMINOTOMY DECOMPRESSION NERVE ROOT LUMBAR performed by Chapin Ortega DO at OR [facility] LUMBAR SPINE FUSION W/BONE GRAFT 08/2016 PROSTHETIC MAT/MESH, ABD, NECROTIC, REMOVAL N/A 01/29/2022 REMOVAL MESH ABDOMINAL WALL NECROTIZING SOFT TISSUE INFECTION performed by Tom Broderick [place] [facility] REMOVAL OF APPENDIX 1981 REMOVE GALLBLADDER 1981 REPAIR INITIAL INCISIONAL OR VENTRAL HERNIA; REDUCIBLE 2001 with mesh REVISE/REMOVE SPINAL NEURORECEIVER N/A 01/06/2020 REVISION OR REMOVAL IMPLANTED SPINAL NEUROSTIMULATOR performed by Gloria Pardo MD at OR [facility] UPPER ENDOSCOPY GI REFERRAL OP 08/28/05 cadet's esophagus-neg for dysplasia or carcinoma Social History Socioeconomic History Marital status: Spouse name: judah Number of children: 2 Years of education: Not on file Highest education level: Not on file Occupational History 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 Employer: [employer] Tobacco Use Smoking status: Never Smokeless [...] Resource Strain: Not on file Food Insecurity: Not on file Transportation Needs: Not on file Physical Activity: Not on file Stress: Not on file Social Connections: Not on file Intimate Partner Violence: Not on file Housing Stability: Not on file Meloxicam, Codeine, Gluten, Iodine, Lipitor [atorvastatin calcium], Penicillins, Ultram [tramadol hcl], and Gluten meal Current Outpatient Medications Medication Sig Dispense Refill MULTIVITAMINS PO CAPS 1 daily TYLENOL 325 MG PO TABS Take 2 Tablets by mouth every 6 hours as needed. Red Yeast Rice 600 MG TABS Tablet Take 1 Tablet by mouth in the morning and 1 Tablet before bedtime. CYANOCOBALAMIN (VITAMIN B-12) 100 MCG Tablet Take 1 Tablet by mouth in the morning. Diclofenac Sodium (VOLTAREN) 1 % gel Place 4 g topically on the skin 2 times a day. To affectedarea as directed. 100 g 6 aspirin enteric coated 81 MG TBEC Take 1 Tablet by mouth in the morning. Polyethylene Glycol 3350 17 GM/SCOOP Oral Powder (MiraLax) Take 17 g by mouth daily as needed for Constipation. 255 g 0 Ezetimibe 10 MG Oral Tablet (Zetia) Take 1 Tablet by mouth in the morning. Sennosides 8.6 MG Oral Tablet (Senokot) Take by mouth 1 Tablet in the morning. For constipation. 15 Tablet 0 Lisinopril 5 MG Oral Tablet (Prinivil) TAKE 1 TABLET BY MOUTH IN THE EVENING. 90 Tablet 3 Dapsone 25 MG Oral Tablet TAKE 2 TABLETS BY MOUTH DAILY NEEDED FOR ITCHING 60 Tablet 2 Pantoprazole Sodium 40 MG Oral Tablet Delayed [...] MOUTH IN THE MORNING, TAKE 1 AND 1/2TABLETS AT NOON AND TAKE 1 TABLET IN THE EVENING 315 Tablet 3 tiZANidine HCl 2 MG Oral Tablet (Zanaflex) Take 1 Tablet by mouth 2 times a day as needed. 90 Tablet 1 HYDROcodone-Acetaminophen 10-325 MG Oral Tablet Take 1 Tablet by mouth every 6 hours as needed for pain 120 Tablet 0 NITROSTAT 0.4 MG SUBL As needed diphenhydrAMINE HCl 25 MG Oral Capsule (Benadryl Allergy) Take 2 tabs by mouth [address] scan[address] 2 Cap 0 CPAP every night at bedtime . oxygen IN GAS Discontinue standing oxygen concentrator and portable oxygen tank. 1 Each 0 Diclofenac Sodium 1 % External Gel (Voltaren) PLACE 4 GRAM TOPICALLY ON THE SKIN 2 TIMES A DAY.100 g 6 DULoxetine HCl 60 MG Oral Capsule Delayed Release Particles (Cymbalta) TAKE 1 CAPSULE BY MOUTH IN THE MORNING (Patient not taking: Reported on 02/25/2023) 90 Capsule 3 DULoxetine HCl 30 MG Oral Capsule Delayed Release Particles (Cymbalta) TAKE1 CAPSULE BY MOUTH IN THE AFTERNOON FOR A TOTAL OF 90MG DAILY. DO NOT CUT, CRUSH OR CHEW (Patient not taking: Reported on 04/18/2023) 90 Capsule 3 oxygen IN GAS 2 LPM via NC with ambulation. Titrate for an SpO2 of 90-94%. 1 Each 0 Ezetimibe 10 MG Oral Tablet (Zetia) TAKE ONE TABLET (10MG) BY MOUTH DAILY 90 Tablet 1 No current facility-administered medications for this visit. Family History Problem Relation Age of Onset Heart Disorder Mother Other (Natural causes) Father age 93 Heart disease Sister Breast Cancer Sister COPD Sister Other (Natural causes) Sister Lung cancer Brother Alcohol and Other Disorders Associated Brother Alcoholism Heart attack Sister Fatal [place] age 55 COPD Sister Other (Natural causes) Sister Heart Disorder Grandmother (Maternal) Pertinent Labs/Test Results: No components found for: PLTS, INR No results found for: CREATININE Hemoglobin A1C (%) Date Value 03/31/2023 6.5 (H) 03/23/2019 6.0 (H) Lab Results Component Value Date/Time AMPHETAMINES - [facility] NEGATIVE 11/06/2018 01:22 PM BARBITURATES - [facility] NEGATIVE 11/06/2018 01:22 PM BENZODIAZEPINES - [facility] NEGATIVE 11/06/2018 01:22 PM METHADONE METABOLITE NEGATIVE 11/06/2018 01:22 PM OXYCODONE NEGATIVE 11/06/2018 01:22 PM OXYCODONE NEGATIVE 11/06/2018 01:22 PM CANNABINOIDS - [facility] NEGATIVE 11/06/2018 01:22 PM Imaging: I personally reviewed the 2019 c-spine MRI: 1. Measured C7/T1 interspace epidural space is 5.9cm from skin. 2. Multilevel DDD with vacuum disc phenomenon at C5/6 and C6/7. 3. Good alignment. Objective Physical Exam: Vital Signs: There were no vitals taken for this visit. There is no height or weight on file to calculate BMI. General: No apparent distress. Assistive Devices: none. Grooming: appropriate Eyes: pupils equal and round, sclera white, pupils midsize. ENT: mucous membranes moist Resp: Non-labored breathing CV: Extremities warm and well-perfused. Psych: Oriented; affect warm, insight good. Skin: No rashes or lesions appreciated on exposed skin Neuromuscular Exam: Palpation does reveal midline cervical tenderness; There is cervical paraspinal tenderness LEFT. Trigger points were identified. Range of motion of the cervical spine was full in all planes of motion . Overall, there is limited cervical ROM secondary to pain. Spurling's test is negative on the right and positive on the left. Phelps's test is negative bilaterally Range of motion is grossly intact at the shoulder, elbow, wrist, and thoracic spine. Motor strength exam reveals: Upper extremities: Right Left Deltoids: C5 5/5 5/5 Biceps: C6 5/5 5/5 Triceps: C7 5/5 5/5 Wrist flexion: C7 5/5 5/5 Wrist extension: C6 5/5 5/5 Hand intrinsics: T1 5/5 5/5 Wireless Cellular Technician strength: C8 5/5 5/5 Deep tendon reflexes: 2+ biceps, 2+ Triceps, 2+ brachioradialis. Sensory exam reveals Left C7/C8/T1 numbness to light touch. Inspection: Rises from a seated position without difficulty. There is not evidence of erythema, edema in the extremities. Gait: Ambulates unassisted; gait is not antalgic. Palpation: Palpation does not reveal midline lumbar tenderness; There is not lumbar paraspinal tenderness bilaterally regions. Trigger points were not identified. Reflexes: Deep tendon reflexes, Right 2+ patellar, 2+ Achilles, Left 2+ patellar, 2+ Achilles, No ankle clonus. Assessment: Michele Levy is a 82 year old year-old male with: Chronic radicular cervical pain (Primary) - INJECT DX/THER SUBSTANCE INTERLAMINAR CERVICAL/THORACIC W IMAGE GUIDE; Future; Expected date: 04/19/2023 DDD (degenerative disc disease), cervical - INJECT DX/THER SUBSTANCE INTERLAMINAR CERVICAL/THORACIC W IMAGE GUIDE; Future; Expected date: 04/19/2023 Plan: Will schedule left-sided C7/T1 PATRICK under XR guidance. The risks, benefits and alternatives to the procedure were reviewed at length and the patient was provided the opportunity to ask questions which were answered to their voiced understanding. Following this comprehensive discussion, the patient opted to proceed. The patient was advised that they will require a wood pile driver operator. Patient had itchiness with iodine contrast in past and tolerated desensitization therapy for past contrast CT. Will desensitize with prednisone 50mg 13 hours and 1 hour prior and diphenhydramine 50mg 1 hour prior. I spent 45 minutes during this patient's consultation. This time was spent completing multiple critical tasks including review of the patient's medical history via review of the medical record, past images, office visits, and procedures notes. I additionally utilized this time to perform a focused p hysical examination which I used to create a targeted assessment of the patient's pain. Additional time was utilized to create a patient-oriented holistic care plan, for procedure planning (as applicable), in the consideration of medication management, issuing orders, and to explain the plans to the patient and address questions and concerns. This also included the appropriate time to document our care plan. Kevon Vela DO [facility], [address] [address] documented in this encounter Nursing Notes * Clari Salcedo LPN - 04/18/2023 12:46 PM EDT Patient presents with neck and left arm pain Last inj was with [facility]- in 2020 Had relief with all prev inj's other than 08/2020 No new MRI or PT documented in this encounter Plan of Treatment Upcoming Encounters Date Type Specialty Care Team Description 05/01/2023 Office Visit Family Medicine Manav De La Vega, DO [address] [place], [place] [address] 06/02/2023 Hospital Encounter Surgery MirianKevonw, DO [address] [place] [id number] 06/02/2023 Surgery Surgery Kevon Vela, DO [address] [place] [address] INJECTION SPINE LUMBAR CERVICAL OR THORACIC 10/15/2023 Office Visit Orthopedics Wilfredo Vázquez, DO [address] [place] [address] 10/22/2023 Office Visit Orthopedics Wilfredo Vázquez, DO [address] [place] [address] 10/29/2023 Office Visit Orthopedics Wilfredo Vázquez, DO [address] [place] [address] Scheduled Orders Name Type Priority Associated Diagnoses Orde r Schedule INJECT DX/THER SUBSTANCE INTERLAMINAR CERVICAL/THORACIC W IMAGE GUIDE Procedures Routine Chronic radicular cervical pain DDD (degenerative disc disease), cervical Expected: 04/19/2023, Expires: 07/19/2023 Scheduled Procedures Name Priority Associated Diagnoses Date/Ti [...] this encounter Medical Devices Implanted Type Area Medical Reviewer Device Identifier Shelf Expiration Date Model / Serial / Lot 15cm X 20cm Xenmatrix Surgical Graft, Rectangle Implanted:Qty : 1 on 01/29/2022 by Tom Broderick MD at [facility] [facility] [place] N/A: Abdomen CR BARD : DAVOL [id number] 09/11/2022 [id number] / [id number] / [id number] Trial Lead Kit 50 Cm 16 Contact Implanted:Qty : 1 on 10/20/2017 by Gloria Pardo MD at OR [facility] N/A: Spine Thoracic [employer]Nation [employer] SCIENTIFIC : PAIN MGMT 08/08/2019 [id number] E / [id number] / Description:T9, 10,11 Clik X Mri [place] Implanted:Qty : 1 on 12/01/2017 by Gloria Pardo MD at OR [facility] N/A: Back Qwilt : PAIN MGMT 07/15/2019 [id number] / / [id number] Device Fixate Suturing - [id number] Implanted:Qty : 1 on 05/02/2020 by Gloria Pardo MD at OR [facility] N/A: Back MicksGarage 03/21/2024 [id number] 10 / / [id number] Trisha Thornton [id number] - [id number] Implanted:Qty : 1 on 02/08/2022 at [facility] COOK : DIAGNOSTIC INTERVENTION [id number] 10/10/2024 [id number] / / [id number] documented as of this encounter Visit Diagnoses Diagnosis Chronic radicular cervical pain- Primary DDD (degenerative disc disease), cervical Degeneration of cervical intervertebral disc Cervical radiculitis Brachial neuritis or radiculitis nos [...] the patient have Health Care Power of Business Development Intern? No Full Code 12/13/2015 11:19 AM 12/16/2015 5:05 PM This order reflects the patients wishes and were consensually agreed upon. Question Answer Comments Discussion of Advance Directives occurred with: Patient Does the patient have a Living Will? No Does the patient have Health Care Power of Business Development Intern? No Care Teams Transportation Planning Technician Relationship Specialty Start Date End Date Manav De La Vega DO [address] [place] [address] PCP - General Family Medicine 04/16/18 documented as of this encounter
--- OUTSIDE RECORDS SUMMARY | 2023-08-12 13:45 | External Medical Summary | Summary of Care ---
Author Name Unknown Organization [facility] Address [address] [facility] [address] Phone [phone] Care Team Providers Care [employer] Social Science Teacher Name Role Phone Manav De La Vega DO Primary Care Provider Reason for Visit * Reason Comments Follow Up Left knee Encounter Details Date Type Department Care Team Description 04/14/2023 Office Visit Orthopaedics [facility] [address] [place] [address] Wilfredo Vázquez DO [address] [place] [address] Primary osteoarthritis of left knee* Allergies Active Allergy Reactions Severity Noted Date Comments Codeine Itching 05/20/2012 adverse reactions In large amounts only Gluten Itching 05/29/2005 Breaking out in blisters Gluten Meal Low 11/28/2022 Other reaction(s): rash Iodine Itching 02/28/2011 oral Atorvastatin Calcium Muscle pain 02/21/2014 Meloxicam Renal complications Medium 09/24/2017 Penicillins Rash 08/16/2002 Tramadol Hcl 08/07/2011 Bad stomach problems documented as of this encounter (statuses as of 04/14/2023) Medications Medication Sig Dispensed Refills Start Date [...] Patient not taking.Reported on 02/25/2023 oxygen IN GASIndications: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 respiratory failure with hypoxia (HCC),ILD (interstitial [...] for pain 120 Tablet 0 03/27/2023 Active Hospital, Clinic, or Other Facility Administered Medication Ordered Dose Route Frequency Start Date End Date Status sodium hyaluronate (Gelsyn-3) 16.8 MG/2ML inj 16.8 mgIndications:Primary osteoarthritis of left knee 16.8 mg IX ONCE 04/14/2023 04/14/20 23 Ended documented as of this encounter (statuses as of 04/14/2023) Active Problems Problem Noted Date Spinal cord stimulator status 11/21/2022 Ileus, postoperative 02/08/2022 Pelvic abscess in male 02/08/2022 Infected hernioplasty mesh 02/04/2022 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 11/22/2021 [...] as of this encounter (statuses as of 04/14/2023) Resolved Problems Problem Noted Date Resolved Date Acute respiratory failure due to COVID-19 202101/10/2022 HTN, goal below 130/80 04/27/2014 8 BENIGN NEOPLASM LG BOWEL 08/14/2006 019 Overview: Colonoscopy 08/04/06--adenomatous--repeat 5 years Other ventral hernia without mention of obstruction or gangrene 08/16/2002 12/15/2018 documented as of this encounter (statuses as of 04/14/2023) Immunizations Name Administration Dates Next Due COVID-19 mRNA, LNP-s, No Pre serve, 2-Dose Series (NexPlanar) 12/07/2020,11/16/2020 COVID-19, LNP-s, No Preserve , Justice-sucrose, Ages 12+ (Pfizer) 01/04/2022 Covid-19, Mrna, Lnp-s, Pf, B ivalent, 30 Mcg, IM, 12 yrs and above (NexPlanar) 10/11/2022 Pneumococcal Conjugate Vacc, 13 Valent (Prevnar) [...] this encounter Progress Notes * Wilfredo Vázquez, - 04/14/2023 8:45 AM EDT Michele Levy [id number] Michele Levy is a 82 year old male who presents for follow up of left knee pain to [facility]. Gelsyn #3 Assessment and Plan: see procedure note, f/u PRN Primary osteoarthritis of left knee (Primary) - sodium hyaluronate (Gelsyn-3) 16.8 MG/2ML inj 16.8 mg - POINT OF CARE US MAJOR JOINT INJECTION, ORTHO Wilfredo Vázquez, DO Primary Care Sports Medicine Orthopaedics [address] [place] [address] Procedure note (knee injection), left : Time [...] with alcohol swab. Knee injectedmusing 1.5 inch, 21 gauge needle from lateral approach injected with Gelsyn. Patient tolerated procedure with no significant bleeding [...] documented in this encounter Nursing Notes * MINGO Bernard - 04/14/2023 8:42 AM EDT Patient presents today for left knee 3rd Gelsyn. documented in this encounter Plan of Treatment Upcoming Encounters Date Type Specialty Care Team Description 05/01/2023 Office Visit Family Medicine Manav De La Vega DO [address] [place] [address] 10/15/2023 Office Visit Orthopedics Wilfredo Vázquez DO [address] [place] [address] 10/22/2023 Office Visit Orthopedics Wilfredo Vázquez DO [address] [place] [address] 10/29/2023 Office Visit Orthopedics Wilfredo Vázquez DO [address] [place] [address] Scheduled Procedures Name Priority Associated Diagnoses Date/Ti [...] Completed 06/07/2015, 09/29/2012 Zoster Vaccines Completed 10/20/2020, 12/0 12/2019, 10/28/2011 [...] this encounter Medical Devices Implanted Type Area Assistant Professor Of Communication Device Identifier Shelf Expiration Date Model / Serial / Lot 15cm X 20cm Xenmatrix Surgical Graft, Rectangle Implanted:Qty : 1 on 01/29/2022 by Tom Broderick MD at OR [facility] Graft N/A: Abdomen CR BARD : DAVOL [id number] 09/11/2022 [id number] / [id number] / [id number] Trial Lead Kit 50 Cm 16 Contact Implanted:Qty : 1 on 10/20/2017 by Gloria Pardo MD at OR [facility] N/A: Spine Thoracic Luxola : PAIN MGMT 08/08/2019 [id number] E / [id number] / Description:T9, 10,11 Clik X Mri [place] Implanted:Qty : 1 on 12/01/2017 by Gloria Pardo MD at OR [facility] N/A: Back Luxola : PAIN MGMT 07/15/2019 [id number] / / [id number] Device Fixate Suturing - [id number] Implanted:Qty : 1 on 05/02/2020 by Gloria Pardo MD at OR [facility] N/A: Back Stocard 03/21/2024 [id number] 10 / / [id number] Trisha Thornton [id number] - [id number] Implanted:Qty : 1 on 02/08/2022 at [facility] COOK : DIAGNOSTIC INTERVENTION [id number] 10/10/2024 [id number] / / [id number] documented as of this encounter Procedures Procedure Name Priority Date/Time Associated Diagnosis Comments POINT OF CARE US MAJOR JOINT INJECTION, ORTHO Routine 04/14/2023 7:52 AM EDT Primary osteoarthritis of left knee documented in this encounter Results * POINT OF CARE US MAJOR JOINT INJECTION, ORTHO (04/14/2023 7:52 AM EDT) Anatomical Region Laterality Modality Musculoskeletal Radiographic Liz ging 04/14/2023 7:52 AM EDT Narrative 04/14/2023 10:04 AM EDT [facility] - Ultrasound Program Exam Date: 04/14/2023 Exam Type: Ortho Bulk Sealer: Wilfredo Vázquez Attending: Wilfredo Vázquez Worksheet: Ortho Injection Exam Information: Impression: Procedure note (knee injection), left : ? Time out: Prior to injection, a time out was called to confirm the administration of appropriate medicine, patient name, procedure and confirm to the best of our ability and knowledge the presence of any necessary risks and benefits. Patient verbalizes understanding. ? Ultrasound utilized to guide injection Ultrasound required due to high risk for complications without ultrasound guideance (risk for neurovascular damage) and need to visualize specific joint recess. ? Reviewed benefits including potential pain reduction and improved function as well as risks including worsening pain or infection in detail with patient and patient verbalizes understanding. ? Sterile techinique applied. Skin sterilized with alcohol swab. Knee injectedmusing 1.5 inch, 21 gauge needle from lateral approach injected with Gelsyn. Patient tolerated procedure with no significant bleeding or adverse reaction. ? Patient instructed to call or return to clinic for fever or warmth and redness at injection site for potential infection. Patient also advised as to potential for steroid flare reaction including increased pain and redness at injection site which should be treated with ice and resolve within 24 hours. ? Wilfredo Vázquez DO Physician Signature: I reviewed the images and approve the documentation above.: Signed by Wilfredo Vázquez on Friday, April 14, 2023 at 10:03:56 AM Procedure Note Wilfredo Vázquez DO - 04/14/2023 [facility] - Ultrasound Program Exam Date: 04/14/2023 Exam Type: Ortho Bulk Sealer: Wilfredo Vázquez Attending: Wilfredo áVzquez Worksheet: Ortho Injection Exam Information: Impression: Procedure note (knee injection), left : ? Time out: Prior to injection, a time out was called to confirm the administration ofappropriate medicine, patient name, procedure and confirm to the best ofour ability and knowledge the presence of any necessary risks andbenefits. Patient verbalizes understanding. ? Ultrasound utilized to guide injection Ultrasound required due to high risk for complications without ultrasoundguideance (risk for neurovascular damage) and need to visualize specificjoint recess. ? Reviewed benefits including potential pain reduction and improved functionas well as risks including worsening pain or infection in detail withpatient and patient verbalizes understanding. ? Sterile techinique applied. Skin sterilized with alcohol swab. Kneeinjectedmusing 1.5 inch, 21 gauge needle from lateral approach injectedwith Gelsyn. Patient tolerated procedure with no significant bleeding oradverse reaction. ? Patient instructed to call or return to clinic for fever or warmth andredness at injection site for potential infection. Patient also advisedas to potential for steroid flare reaction including increased pain andredness at injection site which should be treated with ice and resolvewithin 24 hours. ? Wilfredo Vázquez DO Physician Signature: I reviewed the images and approve the documentation above.: Signed byWilfredo Vázquez on Friday, April 14, 2023 at 10:03:56 AM Wilfredo Vázquez DO RAD ULTRASOUND documented in this encounter Visit Diagnoses Diagnosis Primary osteoarthritis of left knee- Primary Primary localized osteoarthrosis, lower leg documented in this encounter Administered Medications Inactive Administered Medications - up to 3 most recent administrations Medication Order MAR Action Action Date Dose Rate Site sodium hyaluronate (Gelsyn-3) 16.8 MG/2ML inj 16.8 mg 16.8 mg, Intra-Articular, ONCE, On Fri04/14/23 at 0930, For 1 dose Given 04/14/2023 10:31 AM EDT 16.8 mg Knee Left documented in this encounter Advance [...] the patient have Health Care Power of Auto Club Travel Counselor? No Full Code 12/13/2015 11:19 AM 12/16/2015 5:05 PM This order reflects the patients wishes and were consensually agreed upon. Question Answer Comments Discussion of Advance Directives occurred with: Patient Does the patient have a Living Will? No Does the patient have Health Care Power of Auto Club Travel Counselor? No Care Teams High School Social Science Teacher Relationship Specialty Start Date End Date Manav De La Vega DO [address] [place] [address] PCP - General Family Medicine 04/16/18 documented as of this encounter
--- OUTSIDE RECORDS SUMMARY | 2023-08-12 13:45 | External Medical Summary | Summary of Care ---
Author Name Unknown Organization [facility] Address [address] [place] [address] Phone [phone] Care Team Providers Care News Clerk Name Role Phone Manav De La Vega DO Primary Care Provider Reason for Referral * Evaluate & Treat - Unlimited Visits (Within 10 days (routine)) - Authorized Specialty Diagnoses / Procedures Referred By Contlucía perera Referred To Contact Pain Management / Pain Medicine Diagnoses Chronic pain syndrome Manav De La Vega, DO [address] [place] [address] Kevon Vela, [address] [place] [address] Referral ID Status Reason Start Date Expiration Date Visits Requested Visits Authorized [id number] Authorized Specialty Services Required 04/14/2023 999 999 Question Answer Referral Priority Within 10 days (routine) Reason for referral? Interventional Pain Management - (Injection) What is the preferred location to have this test performed? [facility] Comments Patient Name: Michele Levy Date of [...] pain if not done previously. Fax No. [facility] [phone] or contact assistant front end manager [phone] Fax No. [facility] [phone] or contact assistant front end manager [phone] Fax No. 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 Vela [facility] at [facility]. Pt has gotteninjection in the past in his "C disc" area by Dr. Heart and a doc in [facility]. Please review and sign, pt aware that Pm will call to schedule appt. documented in this encounter Plan of Treatment Upcoming Encounters Date Type Specialty Care Team Description 04/18/2023 Office Visit Pain Medicine Kevon Vela, DO [address] [place] [phone] 05/01/2023 Office Visit Family Medicine Manav De La Vega, DO [address] [place] [address] 10/15/2023 Office Visit Orthopedics Wilfredo Vázquez, [address] [place] [address] 10/22/2023 Office Visit Orthopedics Wilfredo Vázquez, [address] [place] [address] 10/29/2023 Office Visit Orthopedics Wilfredo Vázquez, DO [address] [place] [address] Scheduled Procedures Name Priority Associated Diagnoses Date/Ti [...] Completed 06/07/2015, 09/29/2012 Zoster Vaccines Completed 10/20/2020, 12/12/2019, 10/28/2011 COVID-19 Vaccine Completed 10/11/2022, , 12/07/2020, [...] this encounter Medical Devices Implanted Type Area Nursing Home Social Worker Device Identifier Shelf Expiration Date Model / Serial / Lot 15cm X 20cm Xenmatrix Surgical Graft, Rectangle Implanted:Qty : 1 on 01/29/2022 by Tom Broderick MD at OR [facility] Graft N/A: Abdomen CR BARD : DAVOL [id number] 09/11/2022 [id number] / [id number] / [id number] Trial Lead Kit 50 Cm 16 Contact Implanted:Qty : 1 on 10/20/2017 by Gloria Pardo MD at OR [facility] N/A: Spine Thoracic Infinite Enzymes : PAIN MGMT 08/08/2019 SC-2316-50 E / [id number] / Description:T9, 10,11 Clik X Mri [place] Implanted:Qty : 1 on 12/01/2017 by Gloria Pardo MD at OR [facility] N/A: Back Infinite Enzymes : PAIN MGMT 07/15/2019 [id number] / / [id number] Device Fixate Suturing - [id number] Implanted:Qty : 1 on 05/02/2020 by Gloria Pardo MD at OR [facility] N/A: Back [employer] 03/21/2024 [id number] 10 / / [id number] Trisha Thornton [id number] - [id number] Implanted:Qty : 1 on 02/08/2022 at [facility] COOK : DIAGNOSTIC INTERVENTION [id number] 10/10/2024 [id number] / / [id number] documented as of this encounter Visit Diagnoses [...] the patient have Health Care Power of Summer Associate? No Full Code 12/13/2015 11:19 AM 12/16/2015 5:05 PM This order reflects the patients wishes and were consensually agreed upon. Question Answer Comments Discussion of Advance Directives occurred with: Patient Does the patient have a Living Will? No Does the patient have Health Care Power of Summer Associate? No Care Teams News Clerk Relationship Specialty Start Date End Date Manav De La Vega DO [address] [place] [address] PCP - General Family Medicine 04/16/18 documented as of this encounter
--- OUTSIDE RECORDS SUMMARY | 2023-08-12 13:45 | External Medical Summary | Summary of Care ---
Author Name Unknown Organization [facility] Address [address] [facility] [address] Phone [phone] Care Team Providers Care Switchboard Operator Helper Name Role Phone Manav De La Vegaadeline Primary Care Provider Encounter Details Date Type Department Care Team Description 04/22/2023 Telephone Interventional Pain Center, [facility] [address] [place] [address] Kevon Vela DO [address] [place] [phone] Allergies Active Allergy Reactions Severity Noted Date Comments Codeine Itching 05/20/2012 adverse reactions In large amounts only Gluten Itching 05/29/2005 Breaking out in blisters Gluten Meal Low 11/28/2022 Other reaction(s): rash Iodine Itching 02/28/2011 oral Atorvastatin Calcium Muscle pain 02/21/2014 Meloxicam Renal complications Medium 09/24/2017 Penicillins Rash 08/16/2002 Tramadol Hcl 08/07/2011 Bad stomach problems documented as of this encounter (statuses as of 04/22/2023) Medications Medication Sig Dispensed Refills Start Date [...] Patient not taking.Reported on 04/18/2023 oxygen 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 1 Capsule 0 04/18/2023 Active predniSONE 50 MG Oral Tablet (Deltasone) Take 1 tablet by mouth 13 hours prior and 1 tablet 1 hour prior to scheduled procedure. Take with food and water. 2 Tablet 0 04/18/2023 Active documented as of this encounter (statuses as of 04/22/2023) Active Problems Problem Noted Date Spinal cord stimulator status 11/21/2022 Ileus, postoperative 02/08/2022 Pelvic abscess in male 02/08/2022 Infected hernioplasty mesh 02/04/2022 Atherosclerosis of [place] 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 pectoris 11/22/2021 [...] as of this encounter (statuses as of 04/22/2023) Resolved Problems Problem Noted Date Resolved Date Acute respiratory failure due to COVID-19 202101/10/2022 HTN, goal below 130/80 04/27/2014 8 BENIGN NEOPLASM LG BOWEL 08/14/2006 019 Overview: Colonoscopy 08/04/06--adenomatous--repeat 5 years Other ventral hernia without mention of obstruction or gangrene 08/16/2002 12/15/2018 documented as of this encounter (statuses as of 04/22/2023) Immunizations Name Administration Dates Next Due COVID-19 mRNA, LNP-s, No Pre serve, 2-Dose Series ([employer]) 12/07/2020,11/16/2020 COVID-19, LNP-s, No Preserve , Justice-sucrose, Ages 12+ (Pfizer) 01/04/2022 Covid-19, Mrna, Lnp-s, Pf, B ivalent, 30 Mcg, IM, 12 yrs and above ([employer] International) 10/11/2022 Pneumococcal Conjugate Vacc, 13 Valent (Prevnar) [...] encounter Miscellaneous Notes * Telephone Encounter - Clari Salcedo LPN - 04/22/2023 4:05 PM EDT Pt aware. * Telephone Encounter - Clari Salcedo LPN - 04/22/2023 4:04 PM EDT ----- Message from Kevon Vela DO sent at 04/21/2023 4:42 PM EDT ----- Regarding: FW: OK for Michele to stop ASA 81mg? Please notify. Kevon Vela DO Interventional Pain Center, [facility] [address] [facility] [place] [address] ----- Message ----- From: Manav De La Vega DO Sent: 04/19/2023 1:17 PM EDT To: Kevon Vela DO Subject: RE: OK for Michele to stop ASA 81mg? Yes definitely ok Thanks Kevon! ----- Message ----- From: Kevon Vela DO Sent: 04/18/2023 1:41 PM EDT To: Manav De La Vega DO Subject: OK for Michele to stop ASA 81mg? Likely takes ASA 81mg for secondary MO prophylaxis. OK to stop for 6 days? Kevon Vela DO Interventional Pain Center, [facility] [address] [place] [address] documented in this encounter Plan of Treatment Upcoming Encounters Date Type Specialty Care Team Description 05/01/2023 Office Visit Family Medicine Manav De La Vega DO [address] [place] [address] 06/02/2023 Hospital Encounter Surgery Kevon Vela, [address] [place] [phone] 06/02/2023 Surgery Surgery Kevon Vela, DO [address] [place] [phone] INJECTION SPINE LUMBAR CERVICAL OR THORACIC 10/15/2023 Office Visit Orthopedics Wilfredo Vázquez DO [address] [place] [address] 10/22/2023 Office Visit Orthopedics Wilfredo Vázquez, DO [address] [place] [address] 10/29/2023 Office Visit Orthopedics Wilfredo Vázquez, DO [address] [place] [address] Scheduled Procedures Name Priority Associated Diagnoses Date/Ti [...] this encounter Medical Devices Implanted Type Area Customer Complaint Clerk Device Identifier Shelf Expiration Date Model / Serial / Lot 15cm X 20cm Xenmatrix Surgical Graft, Rectangle Implanted:Qty : 1 on 01/29/2022 by Tom Broderick MD at [place] [facility] Graft N/A: Abdomen CR BARD : DAVOL [id number] 09/11/2022 [id number] / [id number] / [id number] Trial Lead Kit 50 Cm 16 Contact Implanted:Qty : 1 on 10/20/2017 by Gloria Pardo MD at OR [facility] N/A: Spine Thoracic ipvive : PAIN MGMT 08/08/2019 [id number] E / [id number] / Description:T9, 10,11 Clik X Mri [place] Implanted:Qty : 1 on 12/01/2017 by Gloria Pardo MD at OR [facility] N/A: Back ipvive : PAIN MGMT 07/15/2019 [id number] / / [id number] Device Fixate Suturing - [id number] Implanted:Qty : 1 on 05/02/2020 by Gloria Pardo MD at OR [facility] N/A: Back BringShare 03/21/2024 [id number] 10 / / [id number] [facility] Norberto [id number] - [id number] Implanted:Qty : 1 on 02/08/2022 at [facility] COOK : DIAGNOSTIC INTERVENTION [id number] 10/10/2024 [id number] / / [id number] documented as of this encounter Advance Directives [...] the patient have Health Care Power of Credit Control Manager? No Full Code 12/13/2015 11:19 AM 12/16/2015 5:05 PM This order reflects the patients wishes and were consensually agreed upon. Question Answer Comments Discussion of Advance Directives occurred with: Patient Does the patient have a Living Will? No Does the patient have Health Care Power of Credit Control Manager? No Care Teams Switchboard Operator Helper Relationship Specialty Start Date End Date Manav De La Vega DO [address] [place] [address] PCP - General Family Medicine 04/16/18 documented as of this encounter
--- OUTSIDE RECORDS SUMMARY | 2023-08-12 13:45 | External Medical Summary | Summary of Care ---
Author Name Unknown Organization [facility] Address [address] [facility] [address] Phone [phone] Care Team Providers Care Infection Control Nurse Name Role Phone Manav De La Vega DO Primary Care Provider Reason for Visit * Reason Comments Follow Up Left knee Encounter Details Date Type Department Care Team Description 04/14/2023 Office Visit Orthopaedics [facility] [address] [place] [address] Wilfredo Vázquez DO [address] [place] [address] Primary osteoarthritis of left knee* Allergies Active [...] Patient not taking.Reported on 02/25/2023 oxygen IN GASIndications: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 respiratory failure with hypoxia (HCC),ILD (interstitial [...] 16.8 mg IX ONCE 04/14/2023 04/14/20 23 Active documented as of this encounter (statuses as of 04/14/2023) Active Problems Problem Noted Date Spinal cord stimulator status 11/21/2022 Ileus, postoperative 02/08/2022 Pelvic abscess in male 02/08/2022 Infected hernioplasty mesh 02/04/2022 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 Gelsyn #3 Assessment and Plan: see procedure note, f/u PRN Primary osteoarthritis of left knee (Primary) - sodium hyaluronate (Gelsyn-3) 16.8 MG/2ML inj 16.8 mg - POINT OF CARE US MAJOR JOINT INJECTION, ORTHO Wilfredo Vázquez, DO Primary Care Sports Medicine Orthopaedics [address] [place] [address] Procedure note (knee injection), left : Time [...] Vega DO [address] [place] [address] 10/15/2023 Office Visit Orthopedics Wilfredo Vázquez DO [address] [place] [address] 10/22/2023 Office Visit Orthopedics Wilfredo Vázquez DO [address] [place] [address] 10/29/2023 Office Visit Orthopedics Wilfredo Vázquez DO [address] [place] [address] Scheduled Orders Name Type Priority Associated Diagnoses Orde r Schedule POINT OF CARE US MAJOR JOINT INJECTION, ORTHO Medical Imaging Routine Primary osteoarthritis of left knee Ordered: 04/14/2023 Scheduled Procedures Name Priority Associated Diagnoses Date/Ti [...] this encounter Medical Devices Implanted Type Area Art History Professor Device Identifier Shelf Expiration Date Model / Serial / Lot 15cm X 20cm Xenmatrix Surgical Graft, Rectangle Implanted:Qty : 1 on 01/29/2022 by Tom Broderick MD [place] [facility] [place] Graft N/A: Abdomen CR BARD : DAVOL [id number] 09/11/2022 [id number] / [id number] / [id number] Trial Lead Kit 50 Cm 16 Contact Implanted:Qty : 1 on 10/20/2017 by Gloria Pardo MD at OR [facility] N/A: Spine Thoracic [employer] : PAIN MGMT 08[place]08/2019 [facility] [id number] / [id number] / Description:T9, 10,11 Clik X Mri [place] Implanted:Qty : 1 on 12/01/2017 by Gloria Pardo MD at OR [facility] N/A: Back [employer] : PAIN MGMT 07/15/2019 [facility] [id number] / / [id number] Device Fixate Suturing - [id number] Implanted:Qty : 1 on 05/02/2020 by Gloria Pardo MD at OR [facility] N/A: Back dscovered 03/21/2024 [id number] / / [id number] [facility] Davis Norberto [id number] - [id number] Implanted:Qty : 1 on 02/08/2022 at [facility] COOK : DIAGNOSTIC INTERVENTION [id number] 10/10/2024 [id number] / / [id number] documented as of this encounter Visit Diagnoses Diagnosis Primary osteoarthritis of left knee- Primary Primary localized osteoarthrosis, lower leg documented in this encounter Advance Directives Latest Code Status on File Code Status Date Activated Date Inactivated Comments Full Code 02/08/2022 12:58 AM 02/09/2022 7:22 PM Question Answer Comments Discussion of Advance Direct kveon occurred with: Not Discussed Code Status History [...] the patient have Health Care Power of Prefabricated Houses Trimmer? No Full Code 12/13/2015 11:19 AM 12/16/2015 5:05 PM This order reflects the patients wishes and were consensually agreed upon. Question Answer Comments Discussion of Advance Directives occurred with: Patient Does the patient have a Living Will? No Does the patient have Health Care Power of Prefabricated Houses Trimmer? No Care Teams Infection Control Nurse Relationship Specialty Start Date End Date Manav De La Vega DO [address] [place] [address] PCP - General Family Medicine 04/16/18 documented as of this encounter
--- OUTSIDE RECORDS SUMMARY | 2023-08-12 13:45 | External Medical Summary | Summary of Care ---
Author Name Unknown Organization [facility] Address [address] [place] [address] Phone [phone] Care Team Providers Care Groundskeeper Porter Name Role Phone Manav De La Vega DO Primary Care Provider Reason for Referral * Evaluate & Treat - Unlimited Visits (Within 10 days (routine)) - Authorized Specialty Diagnoses / Procedures Referred By Contlucía perera Referred To Contact Pain Management / Pain Medicine Diagnoses Chronic pain syndrome Manav De La Vega, DO [address] [place] [address] Kevon Vela, [address] [place] [address] Referral ID Status Reason Start Date Expiration Date Visits Requested Visits Authorized [id number] Authorized Specialty Services Required 04/14/2023 999 999 Question Answer Referral Priority Within 10 days (routine) Reason for referral? Interventional Pain Management - (Injection) What is the preferred location to have this test performed? [facility] Comments Patient Name: Michele Levy Date [...] pain if not done previously. Fax No. [facility] [phone] or contact manager front office [phone] Fax No. [facility] [phone] or contact manager front office [phone] Fax No. [facility] [phone] or contact manager front office [phone] Reason for Visit * Reason Onset Date Comments Appointment 04/14/2023 Encounter Details Date Type Department Care Team Description 04/14/2023 Telephone Family Practice [facility] [address] [place] [address] Manav De La Vega DO [address] [place] [address] Appointment Allergies Active Allergy Reactions Severity Noted Date Comments Codeine Itching 05/20/2012 adverse reactions In large amounts only Gluten Itching 05/29/2005 Breaking out in blisters Gluten Meal Low 11/28/2022 Other reaction(s): rash Iodine Itching 02/28/2011 oral Atorvastatin Calcium Muscle pain 02/21/2014 Meloxicam Renal complications Medium 09/24/2017 Penicillins Rash 08/16/2002 Tramadol Hcl 08/07/2011 Bad stomach problems documented as of this encounter (statuses as of 04/15/2023) Medications Medication Sig Dispensed Refills Start Date [...] Patient not taking.Reported on 02/25/2023 oxygen IN GASIndications: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 respiratory failure with hypoxia (HCC),ILD [...] as of this encounter (statuses as of 04/15/2023) Active Problems Problem Noted Date Spinal cord stimulator status 11/21/2022 Ileus, postoperative 02/08/2022 Pelvic abscess in male 02/08/2022 Infected hernioplasty mesh 02/04/2022 Atherosclerosis of [place] 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 pectoris 11/22/2021 [...] as of this encounter (statuses as of 04/15/2023) Resolved Problems Problem Noted Date Resolved Date Acute respiratory failure due to COVID-19 202101/10/2022 HTN, goal below 130/80 04/27/2014 8 BENIGN NEOPLASM LG BOWEL 08/14/2006 019 Overview: Colonoscopy 08/04/06--adenomatous--repeat 5 years Other ventral hernia without mention of obstruction or gangrene 08/16/2002 12/15/2018 documented as of this encounter (statuses as of 04/15/2023) Immunizations Name Administration Dates Next Due COVID-19 mRNA, LNP-s, No Pre serve, 2-Dose Series ([employer]) 12/07/2020,11/16/2020 COVID-19, LNP-s, No Preserve , Justice-sucrose, [...] encounter Miscellaneous Notes * Telephone Encounter - Alxea De La Vega - 04/14/2023 10:55 AM [...] mgmt referral for Dr. Vela here [facility]. Pt has gotteninjection in the past in his "C disc" area by Dr. Heart and a doc in [facility]. Please review and sign, pt aware that Pm will call to schedule appt. documented in this encounter Plan of Treatment Upcoming Encounters Date Type Specialty Care Team Description 05/01/2023 Office Visit Family Medicine Manav De La Vega, DO [address] [place] [address] 10/15/2023 Office Visit Orthopedics Wilfredo Vázquez, DO [address] [place] [address] 10/22/2023 Office Visit Orthopedics Wilfredo Vázquez, [address] [place] [address] 10/29/2023 Office Visit Orthopedics Wilfredo Vázquez, DO [address] [place] [address] Scheduled Procedures Name Priority Associated Diagnoses Date/Ti [...] this encounter Medical Devices Implanted Type Area Knockout Machine Operator Device Identifier Shelf Expiration Date Model / Serial / Lot 15cm X 20cm Xenmatrix Surgical Graft, Rectangle Implanted:Qty : 1 on 01/29/2022 by Tom Broderick MD at [place] [facility] [place] Graft N/A: Abdomen CR BARD : DAVOL [id number] 09/11/2022 [id number] / [id number] / [id number] Trial Lead Kit 50 Cm 16 Contact Implanted:Qty : 1 on 10/20/2017 by Gloria Pardo MD at OR [facility] N/A: Spine Thoracic [employer] : PAIN MGMT 08/08/2019 [facility] [id number] E / [id number] / Description:T9, 10,11 Clik X Mri [place] Implanted:Qty : 1 on 12/01/2017 by Gloria Pardo MD at OR [facility] N/A: Back [employer]me : PAIN MGMT 07/15/2019 [id number] / / [id number] Device Fixate Suturing - [id number] Implanted:Qty : 1 on 05/02/2020 by Gloria Pardo MD at OR [facility] N/A: Back Twilio 03/21/2024 [id number] / / [id number] Trisha Thornton [id number] - [id number] Implanted:Qty : 1 on 02/08/2022 at [facility] COOK : DIAGNOSTIC INTERVENTION [id number] 10/10/2024 [id number] / / [id number] documented as of this encounter Visit Diagnoses [...] patient have Health Care Power of Production Line Manager? No Full Code 12/13/2015 11:19 AM 12/16/2015 5:05 PM This order reflects the patients wishes and were consensually agreed upon. Question Answer Comments Discussion of Advance Directives occurred with: Patient Does the patient have a Living Will? No Does the patient have Health Care Power of Production Line Manager? No Care Teams Groundskeeper Porter Relationship Specialty Start Date End Date Manav De La Vega DO [address] [place] [address] PCP - General Family Medicine 04/16/18 documented as of this encounter
--- OUTSIDE RECORDS SUMMARY | 2023-08-12 13:45 | External Medical Summary | Summary of Care ---
Author Name Unknown Organization [facility] Address [address] [facility] [place] [address] Phone [phone] Care Team Providers Care Duplicating Machine Operator Name Role Phone Anna De La Vega DO Primary Care Provider Reason for Visit * Reason Comments Medication Refill Encounter Details Date Type Department Care Team Description 04/22/2023 Refill Family Practice [facility] [address] [place] [address] Vince Polanco DO [address] [place] [address] Type 2 diabetes mellitus without complication, without long-term current use of insulin ([facility]) Allergies Active Allergy Reactions Severity Noted Date Comments Codeine Itching 05/20/2012 adverse reactions In large amounts only Gluten Itching 05/29/2005 Breaking out in blisters Gluten Meal Low 11/28/2022 Other reaction(s): rash Iodine Itching 02/28/2011 oral Atorvastatin Calcium Muscle pain 02/21/2014 Meloxicam Renal complications Medium 09/24/2017 Penicillins Rash 08/16/2002 Tramadol Hcl 08/07/2011 Bad stomach problems documented as of this encounter (statuses as of 04/23/2023) Medications Medication Sig Dispensed Refills Start Date [...] Patient not taking.Reported on 04/18/2023 oxygen IN GASIndications: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 pectoris 11/22/2021 [...] as of this encounter (statuses as of 04/23/2023) Resolved Problems Problem Noted Date Resolved Date Acute respiratory failure due to COVID-19 202101/10/2022 HTN, goal below 130/80 04/27/2014 8 BENIGN NEOPLASM LG BOWEL 08/14/2006 019 Overview: Colonoscopy 08/04/06--adenomatous--repeat 5 years Other ventral hernia without mention of obstruction or gangrene 08/16/2002 12/15/2018 documented as of this encounter (statuses as of 04/23/2023) Immunizations Name Administration Dates Next Due COVID-19 [...] encounter Miscellaneous Notes * Telephone Encounter - Moni Lopez [facility] - 04/23/2023 12:48 PM EDTSigned Prescriptions: Disp Refills metFORMIN HCl ER 500 MG Oral Tablet Extend*180 Ta*1 Sig: TAKE ONE TABLET BY MOUTH TWICE DAILY WITH MEALSAuthorizing Provider: ANNA DE LAV EGA User: MONI LOPEZ documented in this encounter Plan of Treatment Upcoming Encounters Date Type Specialty Care Team Description 05/01/2023 Office Visit Family Medicine Anna De La Vega, DO [address] [place] [address] 06/02/2023 Hospital Encounter Surgery Kevon Vela, DO [address] [place] [phone] 06/02/2023 Surgery Surgery Kevon Vela, DO [address] [place] [phone] INJECTION SPINE LUMBAR CERVICAL OR THORACIC 10/15/2023 Office Visit Orthopedics Wilfredo Vázquez, [address] [place] [address] 10/22/2023 Office Visit Orthopedics Wilfredo Vázquez DO [address] [place] [address] 10/29/2023 Office Visit Orthopedics Wilfredo Vázquez DO [address] [place] [address] Scheduled Procedures Name Priority Associated Diagnoses Date/Ti [...] this encounter Medical Devices Implanted Type Area Chemist Device Identifier Shelf Expiration Date Model / Serial / Lot 15cm X 20cm Xenmatrix Surgical Graft, Rectangle Implanted:Qty : 1 [place] 01/29/20[place] [facility] [place] N/A: Abdomen CR BARD : DAVOL [id number] 09/11/2022 [id number] / [id number] / [id number] Trial Lead Kit 50 Cm 16 Contact Implanted:Qty : 1 on 10/20/2017 by Gloria Pardo MD at OR [facility] N/A: Spine Thoracic [employer] : PAIN MGMT 08/08/2019 NV-2316-50 E / [id number] / Description:T9, 10,11 Clik X Mri [place] Implanted:Qty : 1 on 12/01/2017 by Gloria Pardo MD at OR [facility] N/A: Back [employer] : PAIN MGMT 07/15/2019 [id number] / / [id number] Device Fixate Suturing - [id number] Implanted:Qty : 1 on 05/02/2020 by Gloria Pardo MD at OR [facility] N/A: Back [employer] 03/21/2024 [id number] / / [id number] Trisha Thornton [id number] - [id number] Implanted:Qty : 1 on 02/08/2022 at [facility] COOK : DIAGNOSTIC INTERVENTION [id number] 10/10/2024 [id number] / / [id number] documented as of this encounter Visit Diagnoses Diagnosis Type 2 diabetes mellitus without complication, without long-term current use of insulin (HCC) Cervical radiculitis Brachial neuritis or radiculitis nos [...] the patient have Health Care Power of Tobacco Buyer? No Full Code 12/13/2015 11:19 AM 12/16/2015 5:05 PM This order reflects the patients wishes and were consensually agreed upon. Question Answer Comments Discussion of Advance Directives occurred with: Patient Does the patient have a Living Will? No Does the patient have Health Care Power of Tobacco Buyer? No Care Teams Duplicating Machine Operator Relationship Specialty Start Date End Date Anna De La Vega DO [address] [place] [address] PCP - General Family Medicine 04/16/18 documented as of this encounter
--- OUTSIDE RECORDS SUMMARY | 2023-08-12 13:46 | External Medical Summary | Summary of Care ---
Author Name Unknown Organization [facility] Address [address] [facility] [address] Phone [phone] Care Team Providers Care Social Services Counselor Name Role Phone Manav De La Vega DO Primary Care Provider Reason for Visit * Reason Comments Follow Up Left knee, 2nd Gelsy n Encounter Details Date Type Department Care Team Description 04/07/2023 Office Visit Orthopaedics [facility] [address] [place] [address] Wilfredo Vázquez DO [address] [place] [address] Primary osteoarthritis of left knee* Allergies Active [...] as of this encounter (statuses as of 04/07/2023) Medications Medication Sig Dispensed Refills Start Date [...] Patient not taking.Reported on 02/25/2023 oxygen IN GASIndications: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 respiratory failure with hypoxia (HCC),ILD (interstitial [...] of left knee 16.8 mg IX ONCE 04/07/2023 04/07/20 23 Ended documented as of this encounter (statuses as of 04/07/2023) Active Problems Problem Noted Date Spinal cord stimulator status 11/21/2022 Ileus, postoperative 02/08/2022 Pelvic abscess in male 02/08/2022 Infected hernioplasty mesh 02/04/2022 Atherosclerosis of [place] 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 pectoris 11/22/2021 [...] as of this encounter (statuses as of 04/07/2023) Resolved Problems Problem Noted Date Resolved Date Acute respiratory failure due to COVID-19 202101/10/2022 HTN, goal below 130/80 04/27/2014 8 BENIGN NEOPLASM LG BOWEL 08/14/2006 019 Overview: Colonoscopy 08/04/06--adenomatous--repeat 5 years Other ventral hernia without mention of obstruction or gangrene 08/16/2002 12/15/2018 documented as of this encounter (statuses as of 04/07/2023) Immunizations Name Administration Dates Next Due COVID-19 mRNA, LNP-s, No Pre serve, 2-Dose Series ([employer]) 12/07/2020,11/16/2020 COVID-19, LNP-s, No Preserve , Justice-sucrose, Ages 12+ (Pfizer) 01/04/2022 Covid-19, Mrna, Lnp-s, Pf, B ivalent, 30 Mcg, IM, 12 yrs and above ([employer]) 10/11/2022 Pneumococcal Conjugate Vacc, 13 Valent (Prevnar) [...] encounter Progress Notes * Wilfredo Vázquez, - 04/07/2023 8:45 AM EDT Michele Helder Cam [id number] Michele Levy is a 82 year old male who presents for follow up of left knee pain to [facility]. Start Gelsyn #2 Assessment and Plan: see procedure note, f/u next week #3 Wilfredo Vázquez DO Primary Care Sports Medicine Orthopaedics [address] [address] Procedure note (knee injection), left : Time [...] applied. Skin sterilized with alcohol swab. Knee aspirated using 1.5 inch, 21 gauge needle from lateral [...] encounter Nursing Notes * MINGO Bernard - 04/07/2023 8:38 AM EDT Patient presents today for left knee 2nd Gelsyn. documented in this encounter Plan of Treatment Upcoming Encounters Date Type Specialty Care Team Description 04/14/2023 Office Visit Orthopedics Wilfredo Vázquez DO [address] [place] [address] 05/01/2023 Office Visit Family Medicine Manav De La Vega DO [address] [place] [address] Scheduled Orders Name Type Priority Associated Diagnoses Orde r Schedule POINT OF CARE US MAJOR JOINT INJECTION, ORTHO Medical Imaging Routine Primary osteoarthritis of left knee Ordered: 04/07/2023 Scheduled Procedures Name Priority Associated Diagnoses Date/Ti [...] this encounter Medical Devices Implanted Type Area Express Manager Device Identifier Shelf Expiration Date Model / Serial / Lot 15cm X 20cm Xenmatrix Surgical Graft, Rectangle Implanted:Qty : 1 on 01/29/2022 by Tom Broderick MD at [place] [facility] [place] Graft N/A: Abdomen CR BARD : DAVOL [id number] 09/11/2022 [id number] / [id number] / [id number] Trial Lead Kit 50 Cm 16 Contact Implanted:Qty : 1 on 10/20/2017 by Gloria Pardo MD at OR [facility] N/A: Spine Thoracic [employer]ENT[employer] : PAIN MGMT 08/08/2019 SC-2316-50 E / [id number] / Description:T9, 10,11 Clik X Mri [place] Implanted:Qty : 1 on 12/01/2017 by Gloria Pardo MD at OR [facility] N/A: Back [employer] : PAIN MGMT 07/15/2019 [facility] [id number] / / [id number] Device Fixate Suturing - [id number] Implanted:Qty : 1 on 05/02/2020 by Gloria Pardo MD at OR [facility] N/A: Back [employer] 03/21/2024 [id number] / / [id number] Trisha Thornton [id number] - [id number] Implanted:Qty : 1 on 02/08/[address] [facility] COOK : DIAGNOSTIC INTERVENTION [id number] 10/10/2024 [id number] / / [id number] documented as of this encounter Visit Diagnoses Diagnosis Primary osteoarthritis of left knee- Primary Primary localized osteoarthrosis, lower leg documented in this encounter Administered Medications Inactive Administered Medications - up to 3 most recent administrations Medication Order MAR Action Action Date Dose Rate Site sodium hyaluronate (Gelsyn-3) 16.8 MG/2ML inj 16.8 mg 16.8 mg, Intra-Articular, ONCE, On Fri04/07/23 at 0930, For 1 dose Given 04/07/2023 9:02 AM EDT 16.8 mg K nee Left documented in this encounter Advance Directives [...] the patient have Health Care Power of Web Producer? No Full Code 12/13/2015 11:19 AM 12/16/2015 5:05 PM This order reflects the patients wishes and were consensually agreed upon. Question Answer Comments Discussion of Advance Directives occurred with: Patient Does the patient have a Living Will? No Does the patient have Health Care Power of Web Producer? No Care Teams Social Services Counselor Relationship Specialty Start Date End Date Manav De La Vega DO [address] [place] [address] PCP - General Family Medicine 04/16/18 documented as of this encounter
--- OUTSIDE RECORDS SUMMARY | 2023-08-12 13:46 | External Medical Summary | Summary of Care ---
Author Name Unknown Organization [facility] Address [address] [facility] [facility] [address] Phone [phone] Care Team Providers Care Formulation Technician Name Role Phone Manav De La Vega DO Primary Care Provider Reason for Visit * Reason Comments Follow Up Left knee Encounter Details Date Type Department Care Team Description 03/31/2023 Office Visit Orthopaedics [facility] [address] [place] [address] Wilfredo Vázquez DO [address] [place] [address] Primary osteoarthritis of left knee*; Effusion of left knee Allergies Active Allergy Reactions Severity Noted Date Comments Codeine Itching 05/20/2012 adverse reactions In large amounts only Gluten Itching 05/29/2005 Breaking out in blisters Gluten Meal Low 11/28/2022 Other reaction(s): rash Iodine Itching 02/28/2011 oral Atorvastatin Calcium Muscle pain 02/21/2014 Meloxicam Renal complications Medium 09/24/2017 Penicillins Rash 08/16/2002 Tramadol Hcl 08/07/2011 Bad stomach problems documented as of this encounter (statuses as of 03/31/2023) Medications Medication Sig Dispensed Refills Start Date [...] Delayed Release (Protonix)Indicatio ns:High grade dysplasia of Posada's epithelium Take 1 Tablet by mouth in [...] Patient not taking.Reported on 02/25/2023 oxygen IN GASIndications: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 respiratory failure with hypoxia (HCC),ILD (interstitial [...] MG/2ML inj 16.8 mgIndications:Primary osteoarthritis of left knee,Effusion of left knee 16.8 mg IX ONCE 03/31/2023 3 Ended documented as of this encounter (statuses as of 03/31/2023) Active Problems Problem Noted Date Spinal cord stimulator status 11/21/2022 Ileus, postoperative 02/08/2022 Pelvic abscess in male 02/08/2022 Infected hernioplasty mesh 02/04/2022 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 Information booklet given to patient. documented as of this encounter (statuses as of 03/31/2023) Resolved Problems Problem Noted Date Resolved Date Acute respiratory failure due to COVID-19 202101/10/2022 HTN, goal below 130/80 04/27/2014 8 BENIGN NEOPLASM LG BOWEL 08/14/2006 019 Overview: Colonoscopy 08/04/06--adenomatous--repeat 5 years Other ventral hernia without mention of obstruction or gangrene 08/16/2002 12/15/2018 documented as of this encounter (statuses as of 03/31/2023) Immunizations Name Administration Dates Next Due COVID-19 mRNA, LNP-s, No Pre serve, 2-Dose Series ([employer]) 12/07/2020,11/16/2020 COVID-19, LNP-s, No Preserve , Justice-sucrose, [...] Progress Notes * Wilfredo Vázquez, DO - 03/31/2023 8:45 AM EDT Michele Pendleton Cam [id number] Michele Levy is a 82 year old male who presents for follow up of left knee pain to [facility]. Start Gelsyn series Michele Levy is here unaccompanied Interval history- Had Gelsyn series last completed Oct 01 2022, would like to do again, but still considering other options Past Medical History: Diagnosis Date POSADA'S ESOPHAGUS resolved with surgery BENIGN NEOPLASM LG BOWEL 08/14/2006 Colonoscopy 08/04/06--adenomatous--repeat 5 years Celiac disease 11/20/06 well controlled with diet Dermatitis herpetiformis gerd ILD (interstitial lung disease) (HCC) Myocardial infarction (HCC) 06/2011 NSTEMI, multivessel disease by cath, medical Rx Other ventral hernia without mention of obstruction or gangrene 08/16/2002 Pneumonia Pulmonary arterial hypertension (HCC) Current Outpatient Medications Medication Sig Dispense Refill MULTIVITAMINS PO CAPS 1 daily TYLENOL 325 MG PO TABS Take 2 Tablets by mouth every 6 hours as needed. Red Yeast Rice 600 MG TABS Tablet Take 1 Tablet by mouth in the morning and 1 Tablet before bedtime. NITROSTAT 0.4 MG SUBL As needed CYANOCOBALAMIN (VITAMIN B-12) 100 MCG Tablet Take 1 Tablet by mouth in the morning. Diclofenac Sodium (VOLTAREN) 1 % gel Place 4 g topically on the skin 2 times a day. To affectedarea as directed. 100 g 6 aspirin enteric coated 81 MG TBEC Take 1 Tablet by mouth in the morning. diphenhydrAMINE HCl 25 MG Oral Capsule (Benadryl Allergy) Take 2 tabs by mouth [address] scan. 2 Cap 0 Polyethylene Glycol 3350 17 GM/SCOOP Oral Powder (MiraLax) Take 17 g by mouth daily as needed for Constipation. 255 g 0 Ezetimibe 10 MG Oral Tablet (Zetia) Take 1 Tablet by mouth in the morning. CPAP every night at bedtime . Sennosides 8.6 MG Oral Tablet (Senokot) Take by mouth 1 Tablet in the morning. For constipation. 15 Tablet 0 oxygen IN GAS Discontinue standing oxygen concentrator and portable oxygen tank. 1 Each 0 Lisinopril 5 MG Oral Tablet (Prinivil) TAKE 1 TABLET BY MOUTH IN THE EVENING. 90 Tablet 3 Diclofenac Sodium 1 % External Gel (Voltaren) PLACE 4 GRAM TOPICALLY ON THE SKIN 2 TIMES A DAY.100 g 6 Dapsone 25 MG Oral Tablet TAKE 2 TABLETS BY MOUTH DAILY NEEDED FOR ITCHING 60 Tablet 2 Pantoprazole Sodium 40 MG Oral Tablet Delayed Release (Protonix) Take 1 Tablet by mouth in the morning. 90 Tablet 3 Sildenafil Citrate 50 MG Oral Tablet Take 1/2 to 1 tablet by mouth 30 minutes prior to intercourse as needed for erectile dysfunction. 30 Tablet 2 DULoxetine HCl 60 MG Oral Capsule Delayed Release Particles (Cymbalta) TAKE 1 CAPSULE BY MOUTH IN THE MORNING (Patient not taking: Reported on 02/25/2023) 90 Capsule 3 DULoxetine HCl 30 MG Oral Capsule Delayed Release Particles (Cymbalta) TAKE1 CAPSULE BY MOUTH IN THE AFTERNOON FOR A TOTAL OF 90MG DAILY. DO NOT CUT, CRUSH OR CHEW (Patient not taking: Reported on 02/25/2023) 90 Capsule 3 oxygen IN GAS 2 LPM via NC with ambulation. Titrate for an SpO2 of 90-94%. 1 Each 0 Finasteride 5 MG Oral Tablet (Proscar) TAKE [...] (10MG) BY MOUTH DAILY 90 Tablet 1 HYDROcodone-Acetaminophen 10-325 MG Oral Tablet Take 1 Tablet by mouth every 6 hours as needed for pain 120 Tablet 0 No current facility-administered medications for this visit. ROS EXAM: Constitional: No change in weight, No weakness, No fatigue and No fevers, sweats, or chills Physical Exam Gait and Station: slightly antalgic Knee exam, bilateral Effusion: NEGATIVE on Left Palpation: tenderness to palpation at medial joint line on the Left ROM: R - Flexion - 120 degrees, Extension - 0 degrees L - Flexion - 120 degrees, Extension -0 degrees R- Strength: Extension - 5/5 Flexion - 5/5 L - Strength: Extension - 5/5 Flexion - 5/5 Radiology Reviewed 09/13/20 Tricompartmental osteoarthritis, moderate to severe in the medial compartment. Mild genu varus deformity. Assessment and Plan: start Gelsyn series, he may consider TKA as well, see procedure note, f/u nextweek #2 Primary osteoarthritis of left knee (Primary) - sodium hyaluronate (Gelsyn-3) 16.8 MG/2ML inj 16.8 mg - POINT OF CARE US MAJOR JOINT INJECTION, ORTHO Effusion of left knee - sodium hyaluronate (Gelsyn-3) 16.8 MG/2ML inj 16.8 mg - POINT OF CARE US MAJOR JOINT INJECTION, ORTHO Wilfredo Vázquez, DO Primary Care Sports Medicine Orthopaedics [address] [place] [address] Procedure note (knee injection and aspiration), left : Time out: Prior to injection, [...] alcohol swab. Knee aspirated using 1.5 inch, 18 gauge needle from lateral approach 10 cc of straw fluid. Knee then injected with Gelsyn. Patient tolerated procedure with [...] in this encounter Nursing Notes * MINGO Herrera - 03/31/2023 8:35 AM EDT Follow up Gelysn #1 left knee. documented in this encounter Plan of Treatment Upcoming Encounters Date Type Specialty Care Team Description 03/31/2023 Imaging Radiology Arrived 03/31/2023 Laboratory [facility] [address] [place] [address] [employer] Other*[id number]; Encounter for long-term (current) use of other medications; Diabetes mellitus without complication (HCC); HTN, goal below 140/90; Prediabetes; Hyperlipidemia, unspecified hyperlipidemia type; B12 deficiency 04/07/2023 Office Visit Orthopedics Wilfredo Vázquez DO [address] [place] [address] 04/14/2023 Office Visit Orthopedics Wilfredo Vázquez, DO [address] [place] [address] 05/01/2023 Office Visit Family Medicine Manav De La Vega, DO [address] [place] [address] Scheduled Orders Name Type Priority Associated Diagnoses Orde r Schedule POINT OF CARE US MAJOR JOINT INJECTION, ORTHO Medical Imaging Routine Primary osteoarthritis of left knee Effusion of left knee Ordered: 03/31/2023 Scheduled Procedures Name Priority Associated Diagnoses Date/Ti me COLONOSCOPY FLEXIBLE PROXIMAL DIAGNOSTIC Recall History of colon polyps Health Maintenance Due Date Last Done Comments Albumin/Creatinine Ratio 1957 DIABETES-EYE EXAM 1957 DIABETES-FOOT EXAM 1957 COLONOSCOPY-EVERY 5 YRS AGES 18-100 12/17/2021 12/17/2016, 12/17/2016, 02/28/2011, Additional history exists Depression Screening, Annual for Pts 12 and Over 08/30/2022 08/30/2021 HbA1c 09/20/2022 03/20/2022, 11/13, 03/23/2019 DTaP,Tdap,and Td Vaccines (2 - Td or Tdap) 10/05/2022 10/05/2012 GFR 03/20/2023 03/20/2022, 01/14, 02/08/2022, Additional history exists Influenza Vaccine (FLU shot) (#1) 2023 07/16/2022, 05/29/2021, 07/31/2020, Additional history exists Pneumococcal Vaccine: 65+ Years [...] this encounter Medical Devices Implanted Type Area Well Service Floorperson Device Identifier Shelf Expiration Date Model / Serial / Lot 15cm X 20cm Xenmatrix Surgical Graft, Rectangle Implanted:Qty : 1 on 01/29/2022 by Tom Broderick MD [place] [facility] Graft N/A: Abdomen CR BARD : DAVOL [id number] 09/11/2022 [id number] / [id number] / [id number] Trial Lead Kit 50 Cm 16 Contact Implanted:Qty : 1 on 10/20/2017 by Gloria Pardo MD at OR [facility] N/A: Spine Thoracic [employer] : PAIN MGMT 08/08/2019 [id number] / [id number] / Description:T9, 10,11 Clik X Mri [place] Implanted:Qty : 1 on 12/01/2017 by Gloria Pardo MD at OR [facility] N/A: Back [employer]Welcome : PAIN MGMT 07/15/2019 [id number] / / [id number] Device Fixate Suturing - [id number] Implanted:Qty : 1 on 05/02/2020 by Gloria Pardo MD at OR [facility] N/A: Back [employer] 03/21/2024 [id number] / / [id number] Trisha Sniderson Norberto [id number] - [id number] Implanted:Qty : 1 on 02/08/2022 at [facility] COOK : DIAGNOSTIC INTERVENTION [id number] 10/10/2024 [id number] / / [id number] documented as of this encounter Visit Diagnoses Diagnosis Primary osteoarthritis of left knee- Primary Primary localized osteoarthrosis, lower leg Effusion of left knee Effusion of lower leg joint [employer] Other*[id number] Encounter for long-term (current) use of other medications Diabetes mellitus without complication (HCC) Type II or unspecified type diabetes mellitus without mention of complication, not stated as uncontrolled HTN, goal below 140/90 Unspecified essential hypertension Prediabetes Other abnormal glucose Hyperlipidemia, unspecified hyperlipidemia type B12 deficiency Other B-complex deficiencies documented in this encounter Administered Medications Inactive Administered Medications - up to 3 most recent administrations Medication Order MAR Action Action Date Dose Rate Site sodium hyaluronate (Gelsyn-3) 16.8 MG/2ML inj 16.8 mg 16.8 mg, Intra-Articular, ONCE, On Fri03/31/23 at 0915, For 1 dose Given 03/31/2023 8:57 AM EDT 16.8 mg K nee Left [...] the patient have Health Care Power of Boomboat Operator? No Full Code 12/13/2015 11:19 AM 12/16/2015 5:05 PM This order reflects the patients wishes and were consensually agreed upon. Question Answer Comments Discussion of Advance Directives occurred with: Patient Does the patient have a Living Will? No Does the patient have Health Care Power of Boomboat Operator? No Care Teams Formulation Technician Relationship Specialty Start Date End Date Manav De La Vega DO [address] [place] [address] PCP - General Family Medicine 04/16/18 documented as of this encounter
--- OUTSIDE RECORDS SUMMARY | 2023-08-12 13:46 | External Medical Summary ---
Author Name Unknown Address Unknown Organization [id number]:[facility] [address] - [address] [place] [address] Laboratory Report Ordering Provider Test Date Status ALEXANDRA CASTILLO 03/31/2023 08:58:05 Final Observation Date Value Abnormality Reference (Units ) Status BUN 03/31/2023 08:58:05 35 Above high normal 6-20 (mg/dL) Final Creatinine 03/31/2023 08:58:05 1.0 0.6-1.2 (mg/dL) Final Glomerular filtration rate/1.73 sq M.predicted [Volume Rate/Area] in Serum, Plasma or Blood by Creatinine-based formula (CKD-EPI) 03/31/2023 08:58:05 73 >=60 (mL/min) Final eGFR is calculated based on the CKD-EPI 2020 equation SODIUM 03/31/2023 08:58:05 140 135-146 (m mol/L) Final Potassium 03/31/2023 08:58:05 4.8 3.5-5.1 (m mol/L) Final Cl 03/31/2023 08:58:05 103 98-107 (mm ol/L) Final CO2 03/31/2023 08:58:05 27 22-32 (mmo l/L) Final Anion gap 03/31/2023 08:58:05 10 7-15 (mmol /L) Final Glucose 03/31/2023 08:58:05 99 70-120 (mg /dL) Final Albumin 03/31/2023 08:58:05 4.0 3.8-5.0 (g /dL) Final AST (Aspartate aminotransferase) 03/31/2023 08:58:05 26 10-50 (U/L) Final Alk Phos 03/31/2023 08:58:05 100 35-130 (U/ L) Final Bilirubin, Total 03/31/2023 08:58:05 0.3 <=1 .2 (mg/dL) Final Calcium 03/31/2023 08:58:05 9.4 8.4-10.2 ( mg/dL) Final Protein 03/31/2023 08:58:05 6.8 6.0-8.3 (g /dL) Final ALT (Alanine aminotransferase) 03/31/2023 08:58:05 18 10-50 (U/L) Final Performing Location [facility] [address] - [address] [facility] [address]
--- OUTSIDE RECORDS SUMMARY | 2023-08-12 13:46 | External Medical Summary ---
Author Name Unknown Address Unknown Organization [id number]:LABORATORY [facility] - [address] [place] [address] Laboratory Report Ordering Provider Test Date Status ALEXANDRA OSBORNE 03/31/2023 08:58:05 Final Observation Date Value Abnormality Reference (Units ) Status Triglyceride 03/31/2023 08:58:05 115 <=174 ( mg/dL) Final Triglyceride Reference Range s (mg/dL):
<150 Acceptable
150-174 Borderline high
175-499 High
>=500 Very high Cholesterol 03/31/2023 08:58:05 157 <200 (mg /dL) Final Total Cholesterol Reference Ranges (mg/dL):
<200 Desirable
200-239 Borderline high
>=240 High HDL 03/31/2023 08:58:05 51 >39 (mg/dL ) Final HDL Cholesterol Reference Ra nges (mg/dL):
>=60 High (Desirable)
<50 Low (Undesirable) For Females
<40 Low (Undesirable) For Males NON-HDL CHOLESTEROL 03/31/2023 08:58:05 106 <=159 (mg/dL) Final Non-HDL Cholesterol Referenc e Range (mg/dL):
<100 Target level for high risk ASCVD patient
<130 Optimal for general population
130-159 Near optimal for general population
160-189 Borderline High
190-219 High
>=220 Very High LDL, (calculated) 03/31/2023 08:58:05 83 <= 129 (mg/dL) Final LDL Cholesterol Reference Ra nges (mg/dL):
<70 Target level for high risk ASCVD patient
<100 Optimal for general population
100-129 Near optimal for general population
130-159 Borderline high
160-189 High
>=190 Very high Performing Location LABORATORY [facility] - [address] [facility] [address]
--- OUTSIDE RECORDS SUMMARY | 2023-08-12 13:46 | External Medical Summary | Summary of Care ---
Author Name Unknown Organization [facility] Address [address] [facility] [address] Phone [phone] Care Team Providers Care Infrastructure Manager Name Role Phone Manav De La Vega DO Primary Care Provider Reason for Visit * Reason Comments Follow Up Left knee Encounter Details Date Type Department Care Team Description 04/14/2023 Office Visit Orthopaedics [facility] [address] [place] [address] Wilfredo Vázquez DO [address] [place] [address] Primary osteoarthritis of left knee* Allergies Active [...] Patient not taking.Reported on 02/25/2023 oxygen IN GASIndications: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 respiratory failure with hypoxia (HCC),ILD (interstitial [...] 02/08/2022 Infected hernioplasty mesh 02/04/2022 Atherosclerosis of [place] 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 pectoris 11/22/2021 [...] mRNA, LNP-s, No Pre serve, 2-Dose Series ([employer]) 12/07/2020,11/16/2020 COVID-19, LNP-s, No Preserve , Justice-sucrose, Ages 12+ (Pfizer) 01/04/2022 Covid-19, Mrna, Lnp-s, Pf, B ivalent, 30 Mcg, IM, 12 yrs and above ([employer]) 10/11/2022 Pneumococcal Conjugate Vacc, 13 Valent (Prevnar) [...] - 04/14/2023 8:45 AM EDT Michele Levy [id number] Michele Levy is a 82 year old male who presents for follow up of left knee pain to [facility]. Gelsyn #3 Assessment and Plan: see procedure note, f/u PRN Primary osteoarthritis of left knee (Primary) - sodium hyaluronate (Gelsyn-3) 16.8 MG/2ML inj 16.8 mg - POINT OF CARE US MAJOR JOINT INJECTION, ORTHO Wilfredo Vázquez, DO Primary Care Sports Medicine Orthopaedics [address] [place] [address] Procedure note (knee injection), left : Time [...] Date Type Specialty Care Team Description 04/14/2023 Imaging Radiology Arrived 05/01/2023 Office Visit Family Medicine Manav De La Vega DO [address] [place] [address] 10/15/2023 Office Visit Orthopedics Wilfredo Vázquez DO [address] [place] [address] Scheduled Orders Name Type Priority Associated Diagnoses [...] this encounter Medical Devices Implanted Type Area Spooling Machine Operator Device Identifier Shelf Expiration Date Model / Serial / Lot 15cm X 20cm Xenmatrix Surgical Graft, Rectangle Implanted:Qty : 1 on 01/29/2022 by [place] Broderick MD [place] [facility] Graft N/A: Abdomen CR BARD : DAVOL [id number] 09/11/2022 [id number] / [id number] / [id number] Trial Lead Kit 50 Cm 16 Contact Implanted:Qty : 1 on 10/20/2017 by Gloria Pardo MD at OR [facility] N/A: Spine Thoracic [employer] Content : PAIN MGMT 08/08/2019 [place]-2316-50 E / [id number] / Description:T9, 10,11 Clik X Mri [place] Implanted:Qty : 1 on 12/01/2017 by Gloria Pardo MD at OR [facility] N/A: Back Cloud Content : PAIN MGMT 07/15/2019 [id number] / / [id number] Device Fixate Suturing - [id number] Implanted:Qty : 1 on 05/02/2020 by Gloria Pardo MD at OR [facility] N/A: Back [employer] 03/21/2024 [id number] / / [id number] [facility] Ryan [place] [id number] - [id number] Implanted:Qty : 1 on 02/08/2022 at [facility] COOK : DIAGNOSTIC INTERVENTION [id number] 10/10/2024 [id number] / / [id number] documented as of this encounter Visit Diagnoses [...] the patient have Health Care Power of Insemination Worker? No Full Code 12/13/2015 11:19 AM 12/16/2015 5:05 PM This order reflects the patients wishes and were consensually agreed upon. Question Answer Comments Discussion of Advance Directives occurred with: Patient Does the patient have a Living Will? No Does the patient have Health Care Power of Insemination Worker? No Care Teams Infrastructure Manager Relationship Specialty Start Date End Date Manav De La Vega, [address] [place] [address] PCP - General Family Medicine 04/16/18 documented as of this encounter
--- OUTSIDE RECORDS SUMMARY | 2023-08-12 13:46 | External Medical Summary | Summary of Care ---
Author Name Unknown Organization [facility] Address [address] [place] [address] Phone [phone] Care Team Providers Care Structural Analysis Engineer Name Role Phone Manav De La Vega DO Primary Care Provider Reason for Visit * Reason Comments Outpatient Testing Encounter Details Date Type Department Care Team Description 03/31/2023 Laboratory Laboratory, [facility] [address] [facility] [place] [id number] [facility] [address] [facility] [place] [id number] 2threads Other*[id number]; Encounter for long-term (current) use of other medications; Diabetes mellitus without complication (HCC); HTN, goal below 140/90; Prediabetes; Hyperlipidemia, unspecified hyperlipidemia type; B12 deficiency Allergies Active Allergy Reactions Severity [...] Patient not taking.Reported on 02/25/2023 oxygen IN GASIndications: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 Engineer patrice respiratory failure with hypoxia (HCC),ILD (interstitial [...] hernioplasty mesh 02/04/2022 Atherosclerosis of [place] 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 pectoris 11/22/2021 [...] mRNA, LNP-s, No Pre serve, 2-Dose Series ([facility]) 12/07/2020,11/16/2020 COVID-19, LNP-s, No Preserve , Justice-sucrose, Ages 12+ ([facility]) 01/04/2022 Covid-19, Mrna, Lnp-s, Pf, B ivalent, 30 Mcg, IM, 12 yrs and above ([facility]) 10/11/2022 Pneumococcal Conjugate Vacc, 13 Valent (Prevnar) [...] Encounters Date Type Specialty Care Team Description 04/07/2023 Office Visit Orthopedics Wilfredo Vázquez, DO [address] [place] [address] 04/14/2023 Office Visit Orthopedics Wilfredo Vázquez, [address] [place] [address] 05/01/2023 Office Visit Family Medicine Manav De La Vega, [address] [place] [address] Pending Results Name Type Priority Associated Diagnoses Date /Time MYCODE SUBSEQUENT ADULT Lab Routine MyCode Research Other*[id number] 03/31/2023 8:58 AM EDT LIPID PANEL WITH DIRECT LDL IF TG IS HIGH Lab Routine Encounter for long-term (current) use of other medications 03/31/2023 8:58 AM EDT ALBUMIN / CREATININE RATIO, URINE Lab Routine Diabetes mellitus without complication (HCC) 03/31/2023 8:58 AM EDT HEMOGLOBIN A1C Lab Routine Diabetes mellitus without complication (HCC) 03/31/2023 8:58 AM EDT CBC WITH WBC DIFFERENTIAL Lab Routine HTN, goal below 140/90 03/31/2023 8:58 AM EDT COMPREHENSIVE METABOLIC PANEL Lab Routine HTN, goal below 140/90 Prediabetes 03/31/2023 8:58 AM EDT VITAMIN B12 Lab Routine B12 deficiency 03/31/2023 8:58 AM EDT MYCODE SST1 Lab Routine [employer]Code Research Other*[id number] 03/31/2023 8:58 AM EDT MYCODE SST2 Lab Routine [employer]Code Research Other*[id number] 03/31/2023 8:58 AM EDT CBC Lab Routine HTN, goal below 140/90 03/31/2023 8:58 AM EDT DIFFERENTIAL, AUTOMATED Lab Routine HTN, goal below 140/90 03/31/2023 8:58 AM EDT Scheduled Procedures Name Priority Associated Diagnoses Date/Ti [...] this encounter Medical Devices Implanted Type Area Ssis Developer Device Identifier Shelf Expiration Date Model / Serial / Lot 15cm X 20cm Xenmatrix Surgical Graft, Rectangle Implanted:Qty : 1 on 01/29/2022 by Tom Broderick MD at OR [facility] Graft N/A: Abdomen CR BARD : DAVOL [id number] 09/11/2022 [id number] / [id number] / [id number] Trial Lead Kit 50 Cm 16 Contact Implanted:Qty : 1 on 10/20/2017 by Gloria Pardo MD at OR [facility] N/A: Spine Thoracic Pathfire : PAIN MGMT 08/08/2019 [id number] E / [id number] / Description:T9, 10,11 Clik X Mri [place] Implanted:Qty : 1 on 12/01/2017 by Gloria Pardo MD at OR [facility] N/A: Back Pathfire : PAIN MGMT 07/15/2019 [id number] / / [id number] Device Fixate Suturing - [id number] Implanted:Qty : 1 on 05/02/2020 by Gloria Pardo MD at OR [facility] N/A: Back [employer] 03/21/2024 [id number] / / [id number] Trisha Thornton [id number] - [id number] Implanted:Qty : 1 on 02/08/2022 at [facility] COOK : DIAGNOSTIC INTERVENTION [id number] 10/10/2024 [id number] / / [id number] documented as of this encounter Visit Diagnoses Diagnosis MyCode Research Other*[id number] Encounter for long-term (current) use of other medications Diabetes mellitus without complication (HCC) Type II or unspecified type diabetes mellitus without mention of complication, not stated as uncontrolled HTN, goal below 140/90 Unspecified essential hypertension Prediabetes Other abnormal glucose Hyperlipidemia, unspecified hyperlipidemia type B12 deficiency Other B-complex deficiencies documented in this encounter Advance Directives Latest [...] the patient have Health Care Power of Window And Door Installer? No Full Code 12/13/2015 11:19 AM 12/16/2015 5:05 PM This order reflects the patients wishes and were consensually agreed upon. Question Answer Comments Discussion of Advance Directives occurred with: Patient Does the patient have a Living Will? No Does the patient have Health Care Power of Window And Door Installer? No Care Teams Structural Analysis Engineer Relationship Specialty Start Date End Date Manav De La Vega DO [address] [place] [address] PCP - General Family Medicine 04/16/18 documented as of this encounter
--- OUTSIDE RECORDS SUMMARY | 2023-08-12 13:46 | External Medical Summary | Summary of Care ---
Author Name Unknown Organization [facility] Address [address] [facility] [address] Phone [phone] Care Team Providers Care Leather Tooler Name Role Phone Manav De La Vega DO Primary Care Provider Reason for Visit * Reason Comments Follow Up Left knee Encounter Details Date Type Department Care Team Description 03/31/2023 Office Visit Orthopaedics [facility] [address] [place] [address] Wilfredo Vázquez DO [address] [place] [address] Primary osteoarthritis of left knee*; Effusion of [...] Patient not taking.Reported on 02/25/2023 oxygen IN GASIndications: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 Start Gelsyn series Michele [...] Vázquez, DO Primary Care Sports Medicine Orthopaedics [address] [place] [address] Procedure note (knee injection and aspiration), left [...] Date Type Specialty Care Team Description 03/31/2023 Laboratory Laboratory [facility] [address] [place] [id number] [employer] Other*[id number]; Encounter for long-term (current) use of other medications; Diabetes mellitus without complication (HCC); HTN, goal below 140/90; Prediabetes; Hyperlipidemia, unspecified hyperlipidemia type; B12 deficiency 04/07/2023 Office Visit Orthopedics Wilfredo Vázquez DO [address] [place] [address] 04/14/2023 Office Visit Orthopedics Wilfredo Vázquez, DO [address] [place] [address] 05/01/2023 Office Visit Family Medicine Manav De La Vegaadeline, DO [address] [place] [address] Scheduled Orders Name Type Priority Associated Diagnoses [...] this encounter Medical Devices Implanted Type Area Spanish Tutor Device Identifier Shelf Expiration Date Model / Serial / Lot 15cm X 20cm Xenmatrix Surgical Graft, Rectangle Implanted:Qty : 1 on 01/29/2022 by Tom Broderick MD at OR [facility] Graft N/A: Abdomen CR BARD : DAVOL [id number] 09/11/2022 [id number] / [id number] / [id number] Trial Lead Kit 50 Cm 16 Contact Implanted:Qty : 1 on 10/20/2017 by Gloria Pardo MD at OR [facility] N/A: Spine Thoracic Macoscope : PAIN MGMT 08/08/2019 [facility]2316-50 E / [id number] / Description:T9, 10,11 Clik X Mri [place] Implanted:Qty : 1 on 12/01/2017 by Gloria Pardo MD at OR [facility] N/A: Back Macoscope : PAIN MGMT 07/15/2019 [id number] / / [id number] Device Fixate Suturing - [id number] Implanted:Qty : 1 on 05/02/2020 by Gloria Pardo MD at OR [facility] N/A: Back [employer] 03/21/2024 [id number] / / [id number] Trisha Thornton [id number] - [id number] Implanted:Qty : 1 on 02/08/2022 at [facility] COOK : DIAGNOSTIC INTERVENTION [id number] 10/10/2024 [id number] / / [id number] documented as of this encounter Visit Diagnoses Diagnosis Primary osteoarthritis of left knee- Primary Primary localized osteoarthrosis, lower leg Effusion of left knee Effusion of lower leg joint MyCode Research Other*[id number] Encounter for long-term (current) use of other [...] 16.8 mg 16.8 mg, Intra-Articular, ONCE, On 03/31/23 at 0915, For 1 dose Given 03/31/2023 [...] the patient have Health Care Power of Shrimp Trawler Captain? No Full Code 12/13/2015 11:19 AM 12/16/2015 5:05 PM This order reflects the patients wishes and were consensually agreed upon. Question Answer Comments Discussion of Advance Directives occurred with: Patient Does the patient have a Living Will? No Does the patient have Health Care Power of Shrimp Trawler Captain? No Care Teams Leather Tooler Relationship Specialty Start Date End Date Manav De La Vega DO [address] [place] [address] PCP - General Family Medicine 04/16/18 documented as of this encounter
--- OUTSIDE RECORDS SUMMARY | 2023-08-12 13:46 | External Medical Summary ---
Author Name Unknown Address Unknown Organization K01:LABORATORY [facility] - [address] [facility] [address] Laboratory Report Ordering Provider Test Date Status INDIALYNDSEYSULTANA 03/31/2023 08:58:05 Final Observation Date Value Abnormality Reference (Units ) Status HbA1C 03/31/2023 08:58:05 6.5 Above high normal 4. 0-5.6 (%) Final The use of HbA1c to monitor glycemic status is based on normal hemoglobin and HbA composition. This test should not be used in patients with abnormal hemoglobin that affects the half life of the red blood cell or the in vivo glycation rates. Glucose, estimated average 03/31/2023 08:58:05 140 Above high normal <126 (mg/dL) Rahul carpenter Performing Location LAB[facility]ATORY [facility] - [address] [facility] [address]
--- OUTSIDE RECORDS SUMMARY | 2023-08-12 13:46 | External Medical Summary ---
Author Name Unknown Address Unknown Organization K01:LABORATORY [facility] [place] - [address] [place] [address] Laboratory Report Ordering Provider Test Date Status AUNG KELSEY 03/31/2023 08:58:05 Final Observation Date Value Abnormality Reference (Units ) Status MYCODE SPECIMEN-SST 03/31/2023 08:58:05 Freezing of extracted DNA, whole blood and/or serum. Final Performing Location LABORATORY C - [address] [place] [address]
--- OUTSIDE RECORDS SUMMARY | 2023-08-12 13:46 | External Medical Summary | Summary of Care ---
Author Name Unknown Organization [facility] Address [address] [facility] [address] Phone [phone] Care Team Providers Care Razor Grinder Name Role Phone Manav De La Vega DO Primary Care Provider Reason for Visit * Reason Comments Follow Up Left knee, 2nd Gelsy n Encounter Details Date Type Department Care Team Description 04/07/2023 Office Visit Orthopaedics [facility] [address] [place] [address] Wilfredo Vázquez DO [address] [place] [address] Primary osteoarthritis of left knee* Allergies Active [...] Patient not taking.Reported on 02/25/2023 oxygen IN GASIndications: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 respiratory failure with hypoxia (HCC),ILD (interstitial [...] 02/08/2022 Infected hernioplasty mesh 02/04/2022 Atherosclerosis 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 Start Gelsyn #2 Assessment and Plan: see procedure note, f/u next week #3 Wilfredo Vázquez DO Primary Care Sports Medicine Orthopaedics [address] [address] Procedure note (knee injection), left : Time [...] Vázquez DO [address] [place] [address] 05/01/2023 Office Visit Family Medicine Manav De La Vega DO [address] [place] [address] Scheduled Orders Name Type Priority Associated Diagnoses [...] this encounter Medical Devices Implanted Type Area Felt Washing Machine Tender Device Identifier Shelf Expiration Date Model / Serial / Lot 15cm X 20cm Xenmatrix Surgical Graft, Rectangle Implanted:Qty : 1 on 01/29/2022 by Tom Broderick MD at [facility] Graft N/A: Abdomen CR BARD : DAVOL [id number] 09/11/2022 [id number] / [id number] / [id number] Trial Lead Kit 50 Cm 16 Contact Implanted:Qty : 1 on 10/20/2017 by Gloria Pardo MD at OR [facility] N/A: Spine Thoracic [employer] SCIENTIFIC : PAIN MGMT 08/08/2019 SC-2316-50 E / [id number] / Description:T9, 10,11 Clik X Mri [place] Implanted:Qty : 1 on 12/01/2017 by Gloria Pardo MD at OR [facility] N/A: Back NanoOpto : PAIN MGMT 07/15/2019 [facility]4319 / / [id number] Device Fixate Suturing - [id number] Implanted:Qty : 1 on 05/02/2020 by Gloria Pardo MD at OR [facility] N/A: Back [employer] 03/21/2024 [id number] / / [id number] Trisha Thornton [id number] - [id number] Implanted:Qty : 1 on 02/08/2022 at [facility] COOK : DIAGNOSTIC INTERVENTION [id number] 10/10/2024 [id number] / / [id number] documented as of this encounter Visit Diagnoses [...] the patient have Health Care Power of Sexual Assault Counsellor? No Full Code 12/13/2015 11:19 AM 12/16/2015 5:05 PM This order reflects the patients wishes and were consensually agreed upon. Question Answer Comments Discussion of Advance Directives occurred with: Patient Does the patient have a Living Will? No Does the patient have Health Care Power of Sexual Assault Counsellor? No Care Teams Razor Grinder Relationship Specialty Start Date End Date Manav De La Vega DO [address] [place] [address] PCP - General Family Medicine 04/16/18 documented as of this encounter
--- OUTSIDE RECORDS SUMMARY | 2023-08-12 13:46 | External Medical Summary | Summary of Care ---
Author Name Unknown Organization [facility] Address [address] [facility] [address] Phone [phone] Care Team Providers Care Trust Administrative Assistant Name Role Phone Manav De La Vega DO Primary Care Provider Reason for Visit * Reason Comments Follow Up Left knee, 2nd Gelsy n Encounter Details Date Type Department Care Team Description 04/07/2023 Office Visit Orthopaedics [facility] [address] [place] [address] Wilfredo Vázquez DO [address] [place] [address] Primary osteoarthritis of left knee* Allergies Active [...] Patient not taking.Reported on 02/25/2023 oxygen IN GASIndications: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 respiratory failure with hypoxia (HCC),ILD (interstitial [...] 02/08/2022 Infected hernioplasty mesh 02/04/2022 Atherosclerosis of [place] 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 pectoris 11/22/2021 [...] mRNA, LNP-s, No Pre serve, 2-Dose Series ([employer]) 12/07/2020,11/16/2020 COVID-19, LNP-s, No Preserve , Justice-sucrose, Ages 12+ (Pfizer) 01/04/2022 Covid-19, Mrna, Lnp-s, Pf, B ivalent, 30 Mcg, IM, 12 yrs and above ([facility]) 10/11/2022 Pneumococcal Conjugate Vacc, 13 Valent (Prevnar) [...] 04/07/2023 8:45 AM EDT Michele Helder Cam [id number] Michele Levy is a 82 year old male who presents for follow up of left knee pain to [facility]. Start Gelsyn #2 Assessment and Plan: see procedure note, f/u next week #3 Wilfredo Vázquez DO Primary Care Sports Medicine Orthopaedics [address] [address] Procedure note (knee injection), left : Time [...] Vázquez DO [address] [place] [address] 05/01/2023 Office Visit Family Medicine Manav De La Vega DO [address] [place] [address] Scheduled Orders Name Type Priority Associated Diagnoses [...] encounter Medical Devices Implanted Type Area Assistant Office Manager Device Identifier Shelf Expiration Date Model / Serial / Lot 15cm X 20cm Xenmatrix Surgical Graft, Rectangle Implanted:Qty : 1 on 01/29/2022 by [place] Broderick [place] [facility] Graft N/A: Abdomen CR BARD : DAVOL [id number] 09/11/2022 [id number] / [id number] / [id number] Trial Lead Kit 50 Cm 16 Contact Implanted:Qty : 1 on 10/20/2017 by Gloria Pardo MD at OR [facility] N/A: Spine Thoracic TellmeGen SCIENTIFIC : PAIN MGMT 08/08/2019 SC-2316-50 E / [id number] / Description:T9, 10,11 Clik X Mri [place] Implanted:Qty : 1 on 12/01/2017 by Gloria Pardo MD at OR [facility] N/A: Back [employer] : PAIN MGMT 07/15/2019 [facility] [place]19 / / [id number] Device Fixate Suturing - [id number] Implanted:Qty : 1 on 05/02/2020 by Gloria Pardo MD at OR [facility] N/A: Back Best Five Reviewed 03/21/2024 [id number] / / [id number] Trisha Thornton [id number] - [id number] Implanted:Qty : 1 on 02/08/2022 at [facility] COOK : DIAGNOSTIC INTERVENTION [id number] 10/10/2024 [id number] / / [id number] documented as of this encounter Visit Diagnoses [...] the patient have Health Care Power of Load Test Mechanic? No Full Code 12/13/2015 11:19 AM 12/16/2015 5:05 PM This order reflects the patients wishes and were consensually agreed upon. Question Answer Comments Discussion of Advance Directives occurred with: Patient Does the patient have a Living Will? No Does the patient have Health Care Power of Load Test Mechanic? No Care Teams Trust Administrative Assistant Relationship Specialty Start Date End Date Manav De La Vega DO [address] [place] [address] PCP - General Family Medicine 04/16/18 documented as of this encounter
--- OUTSIDE RECORDS SUMMARY | 2023-08-12 13:46 | External Medical Summary ---
Author Name Unknown Address Unknown Organization K01:LABORATORY [facility] [place] - [address] [place] [address] Laboratory Report Ordering Provider Test Date Status AUNG KELSEY 03/31/2023 08:58:05 Final Observation Date Value Abnormality Reference (Units ) Status MYCODE SPECIMEN-SST 03/31/2023 08:58:05 Freezing of extracted DNA, whole blood and/or serum. Final Performing Location LABORATORY C - [address] [place] [address]
--- OUTSIDE RECORDS SUMMARY | 2023-08-12 13:47 | External Medical Summary | Summary of Care ---
Author Name Unknown Organization [facility] Address [address] [facility] [address] Phone [phone] Care Team Providers Care Assistant News Director Name Role Phone De La Vega Manav Jonesadeline Primary Care Provider Encounter Details Date Type Department Care Team Description 02/27/2023 Patient Reported Data Patient Survey Ortho [facility] Allergies Active Allergy Reactions Severity Noted Date Comments Codeine Itching 05/20/2012 adverse reactions In large amounts only Gluten Itching 05/29/2005 Breaking out in blisters Gluten Meal Low 11/28/2022 Other reaction(s): rash Iodine Itching 02/28/2011 oral Atorvastatin Calcium Muscle pain 02/21/2014 Meloxicam Renal complications Medium 09/24/2017 Penicillins Rash 08/16/2002 Tramadol Hcl 08/07/2011 Bad stomach problems documented as of this encounter (statuses as of 02/27/2023) Medications Medication Sig Dispensed Refills Start Date [...] Patient not taking.Reported on 02/25/2023 oxygen IN GASIndications:Medical Supervisor patrice respiratory failure with hypoxia (HCC),ILD (interstitial [...] needed for Other (pain). 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 pectoris 11/22/2021 [...] as of this encounter (statuses as of 02/27/2023) Resolved Problems Problem Noted Date Resolved Date Acute respiratory failure due to COVID-19 202101/10/2022 HTN, goal below 130/80 04/27/2014 8 BENIGN NEOPLASM LG BOWEL 08/14/2006 019 Overview: Colonoscopy 08/04/06--adenomatous--repeat 5 years Other ventral hernia without mention of obstruction or gangrene 08/16/2002 12/15/2018 documented as of this encounter (statuses as of 02/27/2023) Immunizations Name Administration Dates Next Due COVID-19 mRNA, LNP-s, No Pre serve, 2-Dose Series ([facility]) 12/07/2020,11/16/2020 COVID-19, LNP-s, No Preserve , Justice-sucrose, [...] Date Type Specialty Care Team Description 03/31/2023 Office Visit Orthopedics Wilfredo Vázquez, DO [address] [place] [address] 04/07/2023 Office Visit Orthopedics Wilfredo Vázquez, DO [address] [place] [address] 04/14/2023 Office Visit Orthopedics Wilfredo Vázquez, DO [address] [place] [address] 05/01/2023 Office Visit Family Medicine Manav De La Vega, DO [address] [place] [address] Scheduled Procedures Name Priority Associated Diagnoses Date/Ti [...] 03/20/2023 03/20/2022, 01/14, 02/08/2022, Additional history exists Pneumococcal Vaccine: 65+ Years Completed 06/07/2015, 09/29/2012 Zoster Vaccines Completed 10/20/2020, 12/2019, 10/28/2011 Influenza Vaccine (FLU shot) Completed 09/2021, 05/29/2021, 07/31/2020, Additional history exists COVID-19 Vaccine Completed 10/11/2022, , 12/07/2020, Additional [...] this encounter Medical Devices Implanted Type Area Ob/Gyn Nurse Device Identifier Shelf Expiration Date Model / Serial / Lot 15cm X 20cm Xenmatrix Surgical Graft, Rectangle Implanted:Qty : 1 on 01/29/2022 by Tom Broderick MD at OR [facility] Graft N/A: Abdomen CR BARD : DAVOL [id number] 09/11/2022 [id number] / [id number] / [id number] Trial Lead Kit 50 Cm 16 Contact Implanted:Qty : 1 on 10/20/2017 by Gloria Pardo MD at OR [facility] N/A: Spine Thoracic InfiKno SCIENTIFIC : PAIN MGMT 08/08/2019 [place]-2316-50 E / [id number] / Description:T9, 10,11 Clik X Mri [place] Implanted:Qty : 1 on 12/01/2017 by Gloria Pardo MD at OR [facility] N/A: Back [employer] SCIENTIFIC : PAIN MGMT 07/15/2019 [place]-[id number] / / [id number] Device Fixate Suturing - [id number] Implanted:Qty : 1 on 05/02/2020 by Gloria Pardo MD at OR [facility] N/A: Back Shoplogix 03/21/2024 [id number] / / [id number] Trisha Thornton [id number] - [id number] Implanted:Qty : 1 on 02/08/2022 at [facility] COOK : DIAGNOSTIC INTERVENTION [id number] 10/10/2024 [id number] / / [id number] documented as of this encounter Advance Directives [...] the patient have Health Care Power of Banquet Line Cook? No Full Code 12/13/2015 11:19 AM 12/16/2015 5:05 PM This order reflects the patients wishes and were consensually agreed upon. Question Answer Comments Discussion of Advance Directives occurred with: Patient Does the patient have a Living Will? No Does the patient have Health Care Power of Banquet Line Cook? No Care Teams Assistant News Director Relationship Specialty Start Date End Date Manav De La Vega DO [address] [place] [address] PCP - General Family Medicine 04/16/18 documented as of this encounter
--- OUTSIDE RECORDS SUMMARY | 2023-08-12 13:47 | External Medical Summary ---
Author Name Unknown Address Unknown Organization K0G:[facility] [place] [address] Laboratory Report Ordering Provider Test Date Status ALEXANDRA CASTILLO 03/31/2023 08:58:05 Final Observation Date Value Abnormality Reference (Units ) Status WBC, Total 03/31/2023 08:58:05 8.48 4.00-10.8 0 (K/uL) Final RBC 03/31/2023 08:58:05 4.31 4.50-5.25 (M/uL) Final Hemoglobin 03/31/2023 08:58:05 12.9 Below low normal 14 .0-16.8 (g/dL) Final HCT 03/31/2023 08:58:05 39.8 Below low normal 40. 0-48.4 (%) Final MCV 03/31/2023 08:58:05 92.3 82.0-99.5 (fL) Final MCH 03/31/2023 08:58:05 29.9 27.0-34.0 (pg) Final MCHC 03/31/2023 08:58:05 32.4 32.0-36.0 (g/dL) Final RDW 03/31/2023 08:58:05 12.9 11.5-15.5 (%) Final Platelets 03/31/2023 08:58:05 366 140-400 (K /uL) Final MPV 03/31/2023 08:58:05 9.4 6.6-11.1 ( fL) Final Performing Location [facility] [place] [address]
--- OUTSIDE RECORDS SUMMARY | 2023-08-12 13:47 | External Medical Summary | Summary of Care ---
Author Name Unknown Organization [facility] Address [address] [facility] [address] Phone [phone] Care Team Providers Care Dairy Technician Name Role Phone De La Vega Manav [...] Patient not taking.Reported on 02/25/2023 oxygen IN GASIndications:Office Assistant Receptionist patrice respiratory failure with hypoxia (HCC),ILD (interstitial [...] 02/08/2022 Infected hernioplasty mesh 02/04/2022 Atherosclerosis of tribe 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 pectoris [...] mRNA, LNP-s, No Pre serve, 2-Dose Series (Mob[employer]) 12/07/2020,11/16/2020 COVID-19, LNP-s, No Preserve , Justice-sucrose, [...] Vázquez, DO [address] [place] [address] 04/07/2023 Office Visit Orthopedics Wilfredo Vázquez, DO [address] [place] [address] 04/14/2023 Office Visit Orthopedics Wilfredo Vázquez, DO [address] [place] [address] 05/01/2023 Office Visit Family Medicine Manav De La Vega, DO [address] [place] [address] Scheduled Procedures Name Priority Associated Diagnoses Date/Ti [...] this encounter Medical Devices Implanted Type Area Patient Case Coordinator Device Identifier Shelf Expiration Date Model / Serial / Lot 15cm X 20cm Xenmatrix Surgical Graft, Rectangle Implanted:Qty : 1 on 01/29/2022 [place] [facility] [place]/A: Abdomen CR BARD : DAVOL [id number] 09/11/2022 [id number] / [id number] / [id number] Trial Lead Kit 50 Cm 16 Contact Implanted:Qty : 1 on 10/20/2017 by Gloria Pardo MD at OR [facility] N/A: Spine Thoracic Media Battles SCIENTIFIC : PAIN MGMT 08/08/2019 SD-2316-50 E / [id number] / Description:T9, 10,11 Clik X Mri [place] Implanted:Qty : 1 on 12/01/2017 by Gloria Pardo MD at OR [facility] N/A: Back BOSTON SCIENTIFIC : PAIN MGMT 07/15/2019 [id number]-[id number] / / [id number] Device Fixate Suturing - [id number] Implanted:Qty : 1 on 05/02/2020 by Gloria Pardo MD at OR [facility] N/A: Back Hunan Meijing Creative Exhibition Display 03/21/2024 [id number] / / [id number] Trisha Thornton [id number] - [id number] Implanted:Qty : 1 on 02/08/2022 at [facility] COOK : DIAGNOSTIC INTERVENTION [id number] 10/10/2024 [id number] / / [id number] documented as of this encounter Advance Directives [...] the patient have Health Care Power of Hosiery Mender? No Full Code 12/13/2015 11:19 AM 12/16/2015 5:05 PM This order reflects the patients wishes and were consensually agreed upon. Question Answer Comments Discussion of Advance Directives occurred with: Patient Does the patient have a Living Will? No Does the patient have Health Care Power of Hosiery Mender? No Care Teams Dairy Technician Relationship Specialty Start Date End Date Manav De La Vega DO [address] [place] [address] PCP - General Family Medicine 04/16/18 documented as of this encounter
--- OUTSIDE RECORDS SUMMARY | 2023-08-12 13:47 | External Medical Summary | Summary of Care ---
Author Name Unknown Organization [facility] Address [address] [facility] [address] Phone [phone] Care Team Providers Care Search Engine Marketing Manager Name Role Phone De La Vega Manav Jonesadleine Primary Care Provider Encounter Details Date Type [...] Patient not taking.Reported on 02/25/2023 oxygen IN GASIndications:Mottler Operator patrice respiratory failure with hypoxia (HCC),ILD [...] mRNA, LNP-s, No Pre serve, 2-Dose Series ([employer]) 12/07/2020,11/16/2020 COVID-19, LNP-s, No Preserve , Justice-sucrose, [...] Vázquez, DO [address] [place] [address] 04/07/2023 Office Visit Orthopedics Wilfredo Vázquez, DO [address] [place] [address] 04/14/2023 Office Visit Orthopedics Wilfredo Vázquez, DO [address] [place] [address] 05/01/2023 Office Visit Family Medicine Manav De La Vega, DO [address] [place] [address] Scheduled Procedures Name Priority Associated Diagnoses Date/Ti [...] this encounter Medical Devices Implanted Type Area Facepiece Line Supervisor Device Identifier Shelf Expiration Date Model / Serial / Lot 15cm X 20cm Xenmatrix Surgical Graft, Rectangle Implanted:Qty : 1 on 01/29/2022 by Tom Broderick MD at [place] [facility] [place] Graft N/A: Abdomen CR BARD : DAVOL [id number] 09/11/2022 [id number] / [id number] / [id number] Trial Lead Kit 50 Cm 16 Contact Implanted:Qty : 1 on 10/20/2017 by Gloria Pardo MD at OR [facility] N/A: Spine Thoracic Process and Plant Sales SCIENTIFIC : PAIN MGMT 08/08/2019 AL-2316-50 E / [id number] / Description:T9, 10,11 Clik X Mri [place] Implanted:Qty : 1 on 12/01/2017 by Gloria Pardo MD at OR [facility] N/A: Back BOSTON SCIENTIFIC : PAIN MGMT 07/15/2019 AL-4319 / / [id number] Device Fixate Suturing - [id number] Implanted:Qty : 1 on 05/02/2020 by Gloria Pardo MD at OR [facility] N/A: Back Opsware 03/21/2024 [id number] 10 / / [id number] Trisha Thornton [id number] - [id number] Implanted:Qty : 1 on 02/08/2022 at [facility] COOK : DIAGNOSTIC INTERVENTION [id number] 10/10/2024 [id number] / / [id number] documented as of this encounter Advance Directives [...] the patient have Health Care Power of Solder Technician? No Full Code 12/13/2015 11:19 AM 12/16/2015 5:05 PM This order reflects the patients wishes and were consensually agreed upon. Question Answer Comments Discussion of Advance Directives occurred with: Patient Does the patient have a Living Will? No Does the patient have Health Care Power of Solder Technician? No Care Teams Search Engine Marketing Manager Relationship Specialty Start Date End Date Manav De La Vega DO [address] [place] [address] PCP - General Family Medicine 04/16/18 documented as of this encounter
--- OUTSIDE RECORDS SUMMARY | 2023-08-12 13:47 | External Medical Summary ---
Author Name Unknown Address Unknown Organization K01[place] [place] [address] [place] [address] Laboratory Report Ordering Provider Test Date Status ALEXANDRA OSBORNE 03/31/2023 08:58:05 Final Normal: <30 mg/g creatinine< br/>High: 30-300 mg/g creatinine
Very High: >300 mg/g creatinine
Nephrotic: >2200 mg/g creatinine Observation Date Value Abnormality Reference (Units ) Status Albumin, Urine 03/31/2023 08:58:05 <1.20 (mg/dL) Final Creatinine, Urine 03/31/2023 08:58:05 139 (mg/dL) Final Albumin/Creatinine [Mass Ratio] in Urine 03/31/2023 08:58:05 <9 <30 (mg/g Creat) Final Performing Location [facility] [place] [address] [place] [address]
--- OUTSIDE RECORDS SUMMARY | 2023-08-12 13:47 | External Medical Summary | Summary of Care ---
Author Name Unknown Organization [facility] Address [address] [place] [address] Phone [phone] Care Team Providers Care Wildlife Biologist Name Role Phone Anna De La Vega DO Primary Care Provider Reason for Visit * Reason Comments Medication Refill Encounter Details Date Type Department Care Team Description 09/23/2022 Refill Family Practice [facility] [address] [place] [address] Juan David Ramos MD [address] [place] [address] Diabetes mellitus without complication (HCC)*; Encounter for long-term (current) use of other medications Allergies Active Allergy Reactions Severity Noted Date Comments Codeine Itching 05/20/2012 adverse reactions In large amounts only Gluten Itching 05/29/2005 Breaking out in blisters Gluten Meal Low 11/28/2022 Other reaction(s): rash Iodine Itching 02/28/2011 oral Atorvastatin Calcium Muscle pain 02/21/2014 Meloxicam Renal complications Medium 09/24/2017 Penicillins Rash 08/16/2002 Tramadol Hcl 08/07/2011 Bad stomach problems documented as of this encounter (statuses as of 02/28/2023) Medications Medication Sig Dispensed Refills Start Date [...] CT scan. 2 Cap 0 07/18/20 21 Active Polyethylene Glycol 3350 17 GM/SCOOP Oral [...] constipation. 15 Tablet 0 02/05/20 22 Active oxygen IN GASIndications:Noc turnal hypoxemia,Acute respiratory failure due to COVID-19 (HCC) Discontinue standing oxygen concentrator and portable oxygen tank. 1 Each 0 05/08/20 22 Active Lisinopril 5 MG Oral Tablet (Prinivil)Indicati ons:HTN, goal below 140/90 TAKE 1 TABLET BY MOUTH IN THE EVENING. 90 Tablet 3 08/02/20 22 023 Active Diclofenac Sodium 1 % External Gel (Voltaren) PLACE 4 GRAM TOPICALLY ON THE SKIN 2 TIMES A DAY. 100 g 6 06/13/20 22 023 Active Docusate Sodium 100 MG Oral Capsule (Colace) Take by mouth 1 Capsule in the morning AND 1 Capsule before bedtime. For stool softener. 30 Capsule 0 02/05/20 22 022 Discontinued(Yael garcia prescription brought in as discontinued) tiZANidine HCl 2 MG Oral Tablet (Zanaflex)Indicati [...] DAILY 18 g 1 01/08/20 22 023 Ondansetron 4 MG Oral Tablet Disintegrating (Zofran) [...] MEALS 180 Tablet 3 12/11/19 22 023 Doxycycline Hyclate 100 MG Oral CapsuleIndications :Infected hernioplasty mesh, subsequent encounter TAKE 1 CAPSULE BY MOUTH IN THE MORNING AND 1 CAPSULE BEFORE BEDTIME FOR TEN DAYS UNTIL GONE 20 Capsule 0 11/23/19 22 023 Discontinued Finasteride 5 MG Oral Tablet (Proscar)Indicatio ns:BPH with obstruction/lower urinary tract symptoms TAKE ONE TABLET BY MOUTH DAILY 90 Tablet 3 10/15/19 22 023 Discontinued(Re fill) HYDROcodone-Acetam inophen 10-325 MG Oral TabletIndications: Lumbar radiculitis Take 1 Tablet by mouth every 6 hours as needed for Other (pain). 120 Tablet 0 09/03/20 22 023 Discontinued(Re fill) Ezetimibe 10 MG Oral Tablet (Zetia) TAKE ONE TABLET (10MG) BY MOUTH DAILY 90 Tablet 0 09/24/19 23 023 Discontinued(Re fill) Hospital, Clinic, or Other Facility Administered Medication [...] as of this encounter (statuses as of 02/28/2023) Active Problems Problem Noted Date Spinal cord stimulator status 11/21/2022 Ileus, postoperative 02/08/2022 Pelvic abscess in male 02/08/2022 Infected hernioplasty mesh 02/04/2022 Atherosclerosis of [place] 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 pectoris 11/22/2021 [...] as of this encounter (statuses as of 02/28/2023) Resolved Problems Problem Noted Date Resolved Date Acute respiratory failure due to COVID-19 202101/10/2022 HTN, goal below 130/80 04/27/2014 8 BENIGN NEOPLASM LG BOWEL 08/14/2006 019 Overview: Colonoscopy 08/04/06--adenomatous--repeat 5 years Other ventral hernia without mention of obstruction or gangrene 08/16/2002 12/15/2018 documented as of this encounter (statuses as of 02/28/2023) Immunizations Name Administration Dates Next Due COVID-19 mRNA, LNP-s, No Pre serve, 2-Dose Series (Pfizer) 12/07/2020,11/16/2020 COVID-19, LNP-s, No Preserve , Justice-sucrose, Ages 12+ (Pfizer) 01/04/2022 Pneumococcal Conjugate Vacc, 13 Valent (Prevnar) 09/29/2012 [...] encounter Miscellaneous Notes * Telephone Encounter - Vida [facility] - 02/28/2023 5:34 PM EDT Received message from [facility] regarding patient needing labs. Patient was notified. Successfully contacted patient and provided [facility] message. * Telephone Encounter - India Maier, [facility] - 09/24/2022 3:39 PM EST Signed Prescriptions: Disp Refills Ezetimibe 10 MG Oral Tablet (Zetia) 90 Tab*0 Sig: TAKE ONE TABLET (10MG) BY MOUTH DAILY Authorizing Provider: ANNA DE LA VEGA Ordering User: INDIA MAIER * Telephone Encounter - India Maier RPh - 09/24/2022 3:36 PM EST Provided 90 days supply with 0 refill(s). Per refill protocol patient should have Lipid panel on file within past year. Reviewed AMP report, Care Gaps/Health Maintenance, medications list, and for any routine labs typically ordered for this patient. Lab orders placed. Please contact patient to advise of labs ordered for blood draw AND URINE specimen (patient will have to be able to void to provide sample).. Recommend patient to fast if able for labs. Patient may still have water and regular medications. Advise to obtain labs before requesting the next refill. Thanks, India Maier, PharmD Clinical Pharmacist [facility] [phone] 09/24/2022, 3:37 PM documented in this encounter Plan of Treatment Upcoming Encounters Date Type Specialty Care Team Description 03/31/2023 Office Visit Orthopedics Wilfredo Vázquez, DO [address] [place] [address] 04/07/2023 Office Visit Wilfredo Licea, DO [address] [place] [address] 04/14/2023 Office Visit Wilfredo Licea, DO [address] [place] [address] 05/01/2023 Office Visit Family Medicine Anna De La Vega, DO [address] [place] [address] Scheduled Orders Name Type Priority Associated Diagnoses Orde r Schedule LIPID PANEL WITH DIRECT LDL IF TG IS HIGH Lab Routine Encounter for long-term (current) use of other medications Expected: 10/01/2022 (Approximate), Expires: 09/24/2023 ALBUMIN / CREATININE RATIO, URINE Lab Routine Diabetes mellitus without complication (HCC) Expected: 09/24/2022, Expires: 09/24/2023 HEMOGLOBIN A1C Lab Routine Diabetes mellitus without complication (HCC) Expected: 09/24/2022, Expires: 09/24/2023 Scheduled Procedures Name Priority Associated Diagnoses Date/Ti [...] this encounter Medical Devices Implanted Type Area Heating Equipment Repairer Device Identifier Shelf Expiration Date Model / Serial / Lot 15cm X 20cm Xenmatrix Surgical Graft, Rectangle Implanted:Qty : 1 on 01/29/2022 by Tom Broderick MD at [place] [facility] [place] Graft N/A: Abdomen CR BARD : DAVOL [id number] 09/11/2022 [id number] / [id number] / [id number] Trial Lead Kit 50 Cm 16 Contact Implanted:Qty : 1 on 10/20/2017 by Gloria Pardo MD at OR [facility] N/A: Spine Thoracic [employer] Stack[employer] : PAIN MGMT 08/08/2019 ND-2316-50 E / [id number] / Description:T9, 10,11 Clik X Mri [place] Implanted:Qty : 1 on 12/01/2017 by Gloria Pardo MD at OR [facility] N/A: Back Adan : PAIN MGMT 07/15/2019 ND-4319 / / [id number] Device Fixate Suturing - [id number] Implanted:Qty : 1 on 05/02/2020 by Gloria Pardo MD at OR [facility] N/A: Back Knova Software 03/21/2024 [id number] 10 / / [id number] Trisha Thornton [id number] - [id number] Implanted:Qty : 1 on 02/08/2022 at [facility] COOK : DIAGNOSTIC INTERVENTION [id number] 10/10/2024 [id number] / / [id number] documented as of this encounter Visit Diagnoses Diagnosis Diabetes mellitus without complication (HCC)- Primary Type II or unspecified type diabetes mellitus without mention of complication, not stated as uncontrolled Encounter for long-term (current) use of other medications documented in this encounter Advance Directives Latest [...] the patient have Health Care Power of Density Control Puncher? No Full Code 12/13/2015 11:19 AM 12/16/2015 5:05 PM This order reflects the patients wishes and were consensually agreed upon. Question Answer Comments Discussion of Advance Directives occurred with: Patient Does the patient have a Living Will? No Does the patient have Health Care Power of Density Control Puncher? No Care Teams Wildlife Biologist Relationship Specialty Start Date End Date Anna De La Vega DO [address] [place] [address] PCP - General Family Medicine 04/16/18 documented as of this encounter
--- OUTSIDE RECORDS SUMMARY | 2023-08-12 13:47 | External Medical Summary ---
Author Name Unknown Address Unknown Organization K0G:[facility] [address] - [address] [place] [address] Laboratory Report Ordering Provider Test Date Status ALEXANDRA CASTILLO 03/31/2023 08:58:05 Final Observation Date Value Abnormality Reference (Units ) Status SYNC LEUKOCYTES IN BLOOD BY AUTOMATED COUNT 03/31/2023 08:58:05 8.48 4.00-10.80 (K/uL) Final Segs 03/31/2023 08:58:05 55.2 40.0-75.0 (%) Final Lymphs % 03/31/2023 08:58:05 32.4 18.0-42.0 (%) Final Monos 03/31/2023 08:58:05 7.9 1.0-11.0 (%) Final Eosinophils 03/31/2023 08:58:05 4.0 0.0-6.0 (%) Final Basos 03/31/2023 08:58:05 0.5 0.0-2.0 (%) Final Absolute Segs 03/31/2023 08:58:05 4.68 1.80-7.70 (K/uL) Final Lymphs, absolute 03/31/2023 08:58:05 2.75 1.00-4.80 (K/ul) Final Monos, Abs 03/31/2023 08:58:05 0.67 0.00-1.10 (K/uL) Final Eos, Abs 03/31/2023 08:58:05 0.34 0.00-0.70 (K/uL) Final Basos, Abs 03/31/2023 08:58:05 0.04 0.00-0.20 (K/uL) Final Performing Location [facility] [address] [place] [address]
--- OUTSIDE RECORDS SUMMARY | 2023-08-12 13:47 | External Medical Summary | Summary of Care ---
Author Name Unknown Organization [facility] Address [address] [facility] [address] Phone [phone] Care Team Providers Care Executive Director Sheltered Workshop Name Role Phone De La Vega Manav [...] not taking.Reported on 02/25/2023 oxygen IN GASIndications:Medical Staff Assistant patrice respiratory failure with hypoxia (HCC),ILD (interstitial [...] 02/08/2022 Infected hernioplasty mesh 02/04/2022 Atherosclerosis of [place] 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 pectoris 11/22/2021 [...] mRNA, LNP-s, No Pre serve, 2-Dose Series ([employer]) 12/07/2020,11/16/2020 COVID-19, LNP-s, No Preserve , Justice-sucrose, [...] Vázquez, DO [address] [place] [address] 04/07/2023 Office Visit Orthopedics Wilfredo Vázquez, DO [address] [place] [address] 04/14/2023 Office Visit Orthopedics Wilfredo Vázquez, DO [address] [place] [address] 05/01/2023 Office Visit Family Medicine Manav De La Vega, DO [address] [place] [address] Scheduled Procedures Name Priority Associated Diagnoses Date/Ti [...] this encounter Medical Devices Implanted Type Area Boiler Fireman Device Identifier Shelf Expiration Date Model / Serial / Lot 15cm X 20cm Xenmatrix Surgical Graft, Rectangle Implanted:Qty : 1 on 01/29/2022 by Tom Broderick MD [place] [facility] [place]raft N/A: Abdomen CR BARD : DAVOL [id number] 09/11/2022 [id number] / [id number] / [id number] Trial Lead Kit 50 Cm 16 Contact Implanted:Qty : 1 on 10/20/2017 by Gloria Pardo MD at OR [facility] N/A: Spine Thoracic [employer] SCIENTIFIC : PAIN MGMT 08/08/2019 MN-2316-50 E / [id number] / Description:T9, 10,11 Clik X Mri [place] Implanted:Qty : 1 on 12/01/2017 by Gloria Pardo MD at OR [facility] N/A: Back BOSTON SCIENTIFIC : PAIN MGMT 07/15/2019 MN-4319 / / [id number] Device Fixate Suturing - [id number] Implanted:Qty : 1 on 05/02/2020 by Gloria Pardo MD at OR [facility] N/A: Back E[employer]rium [employer] 03/21/2024 [id number] 10 / / [id number] Trisha Thornton [id number] - [id number] Implanted:Qty : 1 on 02/08/2022 at [facility] COOK : DIAGNOSTIC INTERVENTION [id number] 10/10/2024 [id number] / / [id number] documented as of this encounter Advance Directives [...] the patient have Health Care Power of Millinery Designer? No Full Code 12/13/2015 11:19 AM 12/16/2015 5:05 PM This order reflects the patients wishes and were consensually agreed upon. Question Answer Comments Discussion of Advance Directives occurred with: Patient Does the patient have a Living Will? No Does the patient have Health Care Power of Millinery Designer? No Care Teams Executive Director Sheltered Workshop Relationship Specialty Start Date End Date Manav De La Vega DO [address] [place] [address] PCP - General Family Medicine 04/16/18 documented as of this encounter
--- OUTSIDE RECORDS SUMMARY | 2023-08-12 13:47 | External Medical Summary | Summary of Care ---
Author Name Unknown Organization [facility] Address [address] [facility] [address] Phone [phone] Care Team Providers Care Mortician Helper Name Role Phone De La Vega Manav [...] Patient not taking.Reported on 02/25/2023 oxygen IN GASIndications:Barrel Cooper patrice respiratory failure with hypoxia (HCC),ILD (interstitial [...] mRNA, LNP-s, No Pre serve, 2-Dose Series (Ze[employer]) 12/07/2020,11/16/2020 COVID-19, LNP-s, No Preserve , Justice-sucrose, [...] Vázquez, DO [address] [place] [address] 04/07/2023 Office Visit Orthopedics Wilfredo Vázquez, DO [address] [place] [address] 04/14/2023 Office Visit Orthopedics Wilfredo Vázquez, DO [address] [place] [address] 05/01/2023 Office Visit Family Medicine Manav De La Vega, DO [address] [place] [address] Scheduled Procedures Name Priority Associated Diagnoses Date/Ti [...] this encounter Medical Devices Implanted Type Area Nuclear Equipment Test Engineer Device Identifier Shelf Expiration Date Model / Serial / Lot 15cm X 20cm Xenmatrix Surgical Graft, Rectangle Implanted:Qty : 1 on 01/29/2022 by Tom Broderick [place] [facility] [place]raft N/A: Abdomen CR BARD : DAVOL [id number] 09/11/2022 [id number] / [id number] / [id number] Trial Lead Kit 50 Cm 16 Contact Implanted:Qty : 1 on 10/20/2017 by Gloria Pardo MD at OR [facility] N/A: Spine Thoracic [employer] SCIENTIFIC : PAIN MGMT 08/08/2019 TX-2316-50 E / [id number] / Description:T9, 10,11 Clik X Mri [place] Implanted:Qty : 1 on 12/01/2017 by Gloria Pardo MD at OR [facility] N/A: Back BOSTON SCIENTIFIC : PAIN MGMT 07/15/2019 TX-4319 / / [id number] Device Fixate Suturing - [id number] Implanted:Qty : 1 on 05/02/2020 by Gloria Pardo MD at OR [facility] N/A: Back Well[employer] 03/21/2024 [id number] 10 / / [id number] Trisha Thornton [id number] - [id number] Implanted:Qty : 1 on 02/08/2022 at [facility] COOK : DIAGNOSTIC INTERVENTION [id number] 10/10/2024 [id number] / / [id number] documented as of this encounter Advance Directives [...] the patient have Health Care Power of Hide And Skin Fleshing Machine Operator? No Full Code 12/13/2015 11:19 AM 12/16/2015 5:05 PM This order reflects the patients wishes and were consensually agreed upon. Question Answer Comments Discussion of Advance Directives occurred with: Patient Does the patient have a Living Will? No Does the patient have Health Care Power of Hide And Skin Fleshing Machine Operator? No Care Teams Mortician Helper Relationship Specialty Start Date End Date Manav De La Vega DO [address] [place] [address] PCP - General Family Medicine 04/16/18 documented as of this encounter
--- OUTSIDE RECORDS SUMMARY | 2023-08-12 13:47 | External Medical Summary | Summary of Care ---
Author Name Unknown Organization [facility] Address [address] [facility] [address] Phone [phone] Care Team Providers Care Travel Registered Nurse Oncology Name Role Phone Anna De La Vega DO Primary Care Provider Reason for Visit * Reason Onset Date Comments Medication Refill 02/27/2023 Encounter Details Date Type Department Care Team Description 02/27/2023 Refill Family [address] [facility] [address] [place] [address] Anna De La Vega DO [address] [place] [address] Lumbar radiculitis Allergies Active Allergy Reactions Severity [...] Patient not taking.Reported on 02/25/2023 oxygen IN GASIndications:Chr onic respiratory failure with [...] MOUTH DAILY 90 Tablet 1 01/15/2023 Active HYDROcodone-Acetam inophen 10-325 MG Oral TabletIndications: Lumbar radiculitis Take 1 Tablet by mouth every 6 hours as needed for Other (pain). 120 Tablet 0 02/27/2023 Active HYDROcodone-Acetam inophen 10-325 MG Oral TabletIndications: Lumbar radiculitis Take 1 Tablet by mouth every 6 hours as needed for pain 120 Tablet 0 01/29/2023 3 Discontinu ed(Refill) documented as of this encounter (statuses as of 02/27/2023) Active Problems Problem Noted Date Spinal cord stimulator status 11/21/2022 Ileus, postoperative 02/08/2022 Pelvic abscess in male 02/08/2022 Infected hernioplasty mesh 02/04/2022 Atherosclerosis of [place] 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 pectoris 11/22/2021 [...] mRNA, LNP-s, No Pre serve, 2-Dose Series ([place]) 12/07/2020,11/16/2020 COVID-19, LNP-s, No Preserve , Justice-sucrose, Ages 12+ (Pfizer) 01/04/2022 Covid-19, Mrna, Lnp-s, Pf, B ivalent, 30 Mcg, IM, 12 yrs and above ([place]) 10/11/2022 Pneumococcal Conjugate Vacc, 13 Valent (Prevnar) [...] - Anna De La Vega DO - 02/27/2023 10:36 AM EDT Signed Prescriptions: Disp Refills HYDROcodone-Acetaminophen 10-325 MG Oral T*120 Ta*0 Sig: Take 1 Tablet by mouth every 6 hours as needed for Other (pain). Authorizing Provider: ANNA DE LA VEGA * Telephone Encounter - Isidra Collins LPN - 02/27/2023 8:13 AM EDT Pending Prescriptions: Disp Refills HYDROcodone-Acetaminophen 10-325 MG Oral *120 Ta*0 Sig: Take 1 Tablet by mouth every 6 hours as needed for Other (pain). 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 J92.0 ILD (interstitial lung disease) ([facility]) J84.9 Atherosclerosis of [place] coronary artery without angina pectoris I25.10 Protein-calorie malnutrition ([facility]) E46 Diabetes mellitus without complication ([facility]) E11.9 Infected hernioplasty mesh ([facility]) T85.79XA Ileus, postoperative ([facility]) K91.89, K56.7 Pelvic abscess in male ([facility]) K65.1 Spinal cord stimulator status Z96.89 Labs: Lab Results Component Value Date/Time CREAT GFR 0.92 07/30/2016 10:45 AM CREATININE - [facility] 0.9 03/20/2022 09:53 AM CREATININE - [facility] 1.1 09/12/2020 08:49 AM Lab Results Component Value Date/Time POTASSIUM - [facility] 4.6 03/20/2022 09:53 AM POTASSIUM - [facility] 4.5 09/12/2020 08:49 AM Lab Results Component Value Date/Time TSH - [facility] 1.43 08/13/2021 04:29 AM TSH - [facility] 2.09 03/23/2019 07:31 AM Lab Results Component Value Date/Time LDL CHOLESTEROL (CALCULATED) - [facility] 117 09/12/2020 08:49 AM LDL CHOLESTEROL (CALCULATED) - [facility] 109 03/23/2019 07:31 AM LDL CHOLESTEROL (DIRECT MEASURE) - [facility] NOT APPLICABLE 03/23/2019 07:31 AM Lab Results Component Value Date/Time ALT - [facility] 15 02/07/2022 12:41 PM ALT - [facility] 32 09/12/2020 08:49 AM Hemoglobin AIC Results: Lab Results Component Value Date/Time HEMOGLOBIN A1C - [facility] 6.2 (H) 03/20/2022 09:53 AM HEMOGLOBIN A1C - [facility] 8.1 (H) 11/22/2021 03:48 PM HEMOGLOBIN A1C - [facility] 6.0 (H) 03/23/2019 07:31 AM documented in this encounter Plan of Treatment Upcoming Encounters Date Type Specialty Care Team Description 03/31/2023 Office Visit Orthopedics Wilfredo Vázquez, DO [address] [place] [address] 04/07/2023 Office Visit Orthopedics Wilfredo Vázquez DO [address] [place] [address] 04/14/2023 Office Visit Orthopedics Wilfredo Vázquez DO [address] [place] [address] 05/01/2023 Office Visit Family Medicine Anna De La Vega, DO [address] [place] [address] Scheduled Procedures Name Priority Associated Diagnoses Date/Ti [...] this encounter Medical Devices Implanted Type Area Cone Tender Device Identifier Shelf Expiration Date Model / Serial / Lot 15cm X 20cm Xenmatrix Surgical Graft, Rectangle Implanted:Qty : 1 on 01/29/2022 [place]derick [place] [facility] [place]/A: Abdomen CR BARD : DAVOL [id number] 09/11/2022 [id number] / [id number] / [id number] Trial Lead Kit 50 Cm 16 Contact Implanted:Qty : 1 on 10/20/2017 by Gloria Pardo MD at OR [facility] N/A: Spine Thoracic ListRunner : PAIN MGMT 08/08/2019 [id number] / [id number] / Description:T9, 10,11 Clik X Mri [place] Implanted:Qty : 1 on 12/01/2017 by Gloria Pardo MD at OR [facility] N/A: Back ListRunner : PAIN MGMT 07/15/2019 [id number] / / [id number] Device Fixate Suturing - [id number] Implanted:Qty : 1 on 05/02/2020 by Gloria Pardo MD at OR [facility] N/A: Back Attensity 03/21/2024 [id number] / / [id number] [facility] Ryan Thornton [id number] - [id number] Implanted:Qty : 1 on 02/08/2022 at [facility] : DIAGNOSTIC INTERVENTION [id number] 10/10/2024 [id number] / / [id number] documented as of this encounter Visit Diagnoses Diagnosis Lumbar radiculitis Thoracic or lumbosacral neuritis or radiculitis, unspecified documented in this encounter Advance Directives Latest [...] the patient have Health Care Power of Methods Engineer? No Full Code 12/13/2015 11:19 AM 12/16/2015 5:05 PM This order reflects the patients wishes and were consensually agreed upon. Question Answer Comments Discussion of Advance Directives occurred with: Patient Does the patient have a Living Will? No Does the patient have Health Care Power of Methods Engineer? No Care Teams Travel Registered Nurse Oncology Relationship Specialty Start Date End Date Anna De La Vega, [address] [place] [address] PCP - General Family Medicine 04/16/18 documented as of this encounter
--- OUTSIDE RECORDS SUMMARY | 2023-08-12 13:47 | External Medical Summary ---
Author Name Unknown Address Unknown Organization K01:LABORATORY [facility] [place] - [address] [place] [address] Laboratory Report Ordering Provider Test Date Status ALEXANDRA CASTILLO 03/31/2023 08:58:05 Final Observation Date Value Abnormality Reference (Units ) Status Vitamin B12 03/31/2023 08:58:05 [phone] (pg/mL) Final Performing Location LABORATORY [facility] - [address] [place] [address]
--- OUTSIDE RECORDS SUMMARY | 2023-08-12 13:47 | External Medical Summary | Summary of Care ---
Author Name Unknown Organization [facility] Address [address] [facility] [address] Phone [phone] Care Team Providers Care Millwright Apprentice Name Role Phone Manav De La Vega DO Primary Care Provider Reason for Visit * Reason Onset Date Comments Medication Refill 03/27/2023 Encounter Details Date Type Department Care Team Description 03/27/2023 Telephone Family Practice [facility] [address] [place] [address] Manav De La Vega DO [address] [place] [address] Medication Refill Allergies Active Allergy Reactions Severity Noted Date Comments Codeine Itching 05/20/2012 adverse reactions In large amounts only Gluten Itching 05/29/2005 Breaking out in blisters Gluten Meal Low 11/28/2022 Other reaction(s): rash Iodine Itching 02/28/2011 oral Atorvastatin Calcium Muscle pain 02/21/2014 Meloxicam Renal complications Medium 09/24/2017 Penicillins Rash 08/16/2002 Tramadol Hcl 08/07/2011 Bad stomach problems documented as of this encounter (statuses as of 03/27/2023) Medications Medication Sig Dispensed Refills Start Date [...] needed for Other (pain). 120 Tablet 0 03/27/2023 Active HYDROcodone-Acetam inophen 10-325 MG Oral TabletIndications: Lumbar radiculitis Take 1 Tablet by mouth every 6 hours as needed for Other (pain). 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 Information booklet given to patient. documented as of this encounter (statuses as of 03/27/2023) Resolved Problems Problem Noted Date Resolved Date Acute respiratory failure due to COVID-19 202101/10/2022 HTN, goal below 130/80 04/27/2014 8 BENIGN NEOPLASM LG BOWEL 08/14/2006 019 Overview: Colonoscopy 08/04/06--adenomatous--repeat 5 years Other ventral hernia without mention of obstruction or gangrene 08/16/2002 12/15/2018 documented as of this encounter (statuses as of 03/27/2023) Immunizations Name Administration Dates Next Due COVID-19 mRNA, LNP-s, No Pre serve, 2-Dose Series ([facility]) 12/07/2020,11/16/2020 COVID-19, LNP-s, No Preserve , Justice-sucrose, Ages 12+ (Pfizer) 01/04/2022 Covid-19, Mrna, Lnp-s, Pf, B ivalent, 30 Mcg, IM, 12 yrs and above ([facility]) 10/11/2022 Pneumococcal Conjugate Vacc, 13 Valent [...] encounter Miscellaneous Notes * Telephone Encounter - Isidra Collins LPN - 03/27/2023 8:32 AM EDT Provider to address: Pending Prescriptions: Disp Refills HYDROcodone-Acetaminophen 10-325 MG Oral *120 Ta*0 Sig: Take 1 Tablet by mouth every 6 hours as needed for Other (pain). Last Visit: 07/16/2022 (in office), 10/09/2022 (telemedicine) Next Visit: 05/01/2023 Last date the medication was ordered: 02/27/2023 Patient Active Problem List Diagnosis Code ADVANCE [...] Hyperlipidemia, unspecified E78.5 Atherosclerosis of aorta ([facility]) I70.0 SBO (small bowel obstruction) ([facility]) K56.609 Pleural plaque due to asbestos exposure J92.0 ILD (interstitial lung disease) ([facility]) J84.9 Atherosclerosis of [place] coronary artery without angina pectoris I25.10 Protein-calorie malnutrition ([facility]) E46 Diabetes mellitus without complication ([facility]) E11.9 Infected hernioplasty mesh ([facility]) T85.79XA Ileus, postoperative ([facility]) K91.89, K56.7 Pelvic abscess in male ([facility]) K65.1 Spinal cord stimulator status Z96.89 Labs: [...] Contact: Telephone Call Contact Type: Medication Outcome: as above Total Time including non face to face (minutes): 5 documented in this encounter Plan of Treatment Upcoming Encounters Date Type Specialty Care Team Description 03/31/2023 Office Visit Orthopedics Wilfredo Vázquez, [address] [place] [address] 04/07/2023 Office Visit Orthopedics Wilfredo Vázquez DO [address] [place] [address] 04/14/2023 Office Visit Orthopedics Wilfredo Vázquez DO [address] [place] [address] 05/01/2023 Office Visit Family Medicine Manav De La Vega, [address] [place] [address] Scheduled Procedures Name Priority Associated Diagnoses Date/Ti [...] this encounter Medical Devices Implanted Type Area Senior Marketing Data Analyst Device Identifier Shelf Expiration Date Model / Serial / Lot 15cm X 20cm Xenmatrix Surgical Graft, Rectangle Implanted:Qty : 1 on 01/29/2022 by [place] Broderick [place] [facility] [place] N/A: Abdomen CR BARD : DAVOL [id number] 09/11/2022 [id number] / [id number] / [id number] Trial Lead Kit 50 Cm 16 Contact Implanted:Qty : 1 on 10/20/2017 by Gloria Pardo MD at OR [facility] N/A: Spine Thoracic [employer] : PAIN MGMT 08/08/2019 MI-2316-50 E / [id number] / Description:T9, 10,11 Clik X Mri [place] Implanted:Qty : 1 on 12/01/2017 by Gloria Pardo MD at OR [facility] N/A: Back [employer] : PAIN MGMT 07/15/2019 [id number] / / [id number] Device Fixate Suturing - [id number] Implanted:Qty : 1 on 05/02/2020 by Gloria Pardo MD at [facility] N/A: Back PagaTodo Mobile 03/21/2024 [id number] / / [id number] Trisha Thornton [id number] - [id number] Implanted:Qty : 1 on 02/08/2022 at [facility] [place] : DIAGNOSTIC INTERVENTION [id number] 10/10/2024 [id number] / / [id number] documented as of this encounter Visit Diagnoses [...] Code 08/05/2021 12:41 PM 08/06/2021 7:56 PM T his order reflects the patients wishes and were consensually agreed upon. Question Answer Comments Discussion of Advance Directives occurred with: Patient/Family Does the patient have a Living Will? No Does the patient have Health Care Power of Lead Burner? No Full Code 12/13/2015 11:19 AM 12/16/2015 5:05 PM This order reflects the patients wishes and were consensually agreed upon. Question Answer Comments Discussion of Advance Directives occurred with: Patient Does the patient have a Living Will? No Does the patient have Health Care Power of Lead Burner? No Care Teams Millwright Apprentice Relationship Specialty Start Date End Date Manav De La Vega DO [address] [place] [address] PCP - General Family Medicine 04/16/18 documented as of this encounter
--- OUTSIDE RECORDS SUMMARY | 2023-08-12 13:48 | External Medical Summary | Summary of Care ---
Author Name Unknown Organization [facility] Address [address] [facility] [address] Phone [phone] Care Team Providers Care Freight Car Cleaner Delta System Name Role Phone De La VegaManavadeline Primary Care Provider Reason for Visit * Reason Comments Rheum Follow Up Follow up - bilatera l thumb injections Encounter Details Date Type Department Care Team Description 02/25/2023 Office Visit Rheumatology [place] [id number] [employer] [place] [address] Wilfredo Collier MD [address] [place] [address] Primary osteoarthritis of both first carpometacarpal joints* Allergies Active Allergy Reactions Severity Noted Date Comments Codeine Itching 05/20/2012 adverse reactions In large amounts only Gluten Itching 05/29/2005 Breaking out in blisters Gluten Meal Low 11/28/2022 Other reaction(s): rash Iodine Itching 02/28/2011 oral Atorvastatin Calcium Muscle pain 02/21/2014 Meloxicam Renal complications Medium 09/24/2017 Penicillins Rash 08/16/2002 Tramadol Hcl 08/07/2011 Bad stomach problems documented as of this encounter (statuses as of 02/25/2023) Medications Medication Sig Dispensed Refills Start Date [...] Delayed Release (Protonix)Indicati ons:High grade dysplasia of Posada's epithelium Take 1 [...] needed for pain 120 Tablet 0 01/29/2023 Active Azithromycin 250 MG Oral Tablet (Zithromax Z-James) take 2 tablets (500 mg) by mouth on day one, followed by 1 tablet (250 mg) by mouth for four days. 6 Tablet 0 11/07/2022 3 Discontinu ed(Medicat ion List Clean Up) Hospital, Clinic, or Other Facility Administered Medication Ordered Dose Route Frequency Start Date End Date Status methylPREDNISolone acetate (Depo-Medrol) 40 MG/ML inj 40 mgIndications:Primary osteoarthritis of both first carpometacarpal joints 40 mg IX ONCE 02/25/2023 02/25/2023 Ended methylPREDNISolone acetate (Depo-Medrol) 40 MG/ML inj 40 mgIndications:Primary osteoarthritis of both first carpometacarpal joints 40 mg IX ONCE 02/25/2023 02/25/2023 Ended documented as of this encounter (statuses as of 02/25/2023) Active Problems Problem Noted Date Spinal cord stimulator status 11/21/2022 Ileus, postoperative 02/08/2022 Pelvic abscess in male 02/08/2022 Infected hernioplasty mesh 02/04/2022 Atherosclerosis of [place] 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 pectoris 11/22/2021 [...] as of this encounter (statuses as of 02/25/2023) Resolved Problems Problem Noted Date Resolved Date Acute respiratory failure due to COVID-19 202101/10/2022 HTN, goal below 130/80 04/27/2014 8 BENIGN NEOPLASM LG BOWEL 08/14/2006 019 Overview: Colonoscopy 08/04/06--adenomatous--repeat 5 years Other ventral hernia without mention of obstruction or gangrene 08/16/2002 12/15/2018 documented as of this encounter (statuses as of 02/25/2023) Immunizations Name Administration Dates Next Due COVID-19 mRNA, LNP-s, No Pre serve, 2-Dose Series ([facility]) 12/07/2020,11/16/2020 COVID-19, LNP-s, No Preserve , Justice-sucrose, Ages 12+ (Pfizer) 01/04/2022 Covid-19, Mrna, Lnp-s, Pf, B ivalent, 30 Mcg, IM, 12 yrs and above ([facility]) 10/11/2022 Pneumococcal Conjugate Vacc, 13 Valent (Prevnar) [...] Sign Reading Time Taken Comments Blood Pressure - - Pulse - - Temperature 36.4 C (97.5 F) 02/25/2023 9:59 AM ED T Respiratory Rate - - Oxygen Saturation - - Inhaled Oxygen Concentration - - Weight - [...] of this encounter Progress Notes * Wilfredo Collier MD - 02/25/2023 10:03 AM EDTAssociated Order(s): SM Joint Inj/Arthro: bilateral thumb [facility] Michele Levy is a 82 year old male patient. Here for procedure only visit. ICD-10-CM 1. Primary osteoarthritis of both first carpometacarpal joints M18.0 Past Medical History: Diagnosis Date POSADA'S ESOPHAGUS resolved with surgery BENIGN NEOPLASM LG BOWEL 08/14/2006 Colonoscopy 08/04/06--adenomatous--repeat 5 years Celiac disease 11/20/06 well controlled with diet Dermatitis herpetiformis gerd ILD (interstitial lung disease) (HCC) Myocardial infarction (HCC) 06/2011 NSTEMI, multivessel disease by cath, medical Rx Other ventral hernia without mention of obstruction or gangrene 08/16/2002 Pneumonia Pulmonary arterial hypertension (HCC) Temperature 36.4 C (97.5 F), temperature source Infrared . SM Joint Inj/Arthro: bilateral thumb [facility] on 02/25/2023 10:03 AM Indications: pain Details: 25 G needle, radial approach Medications (Right): (40mg of depomedrol) Medications (Left): (40mg of depomedrol ) Outcome: tolerated well, no immediate complications Procedure, treatment alternatives, risks and benefits explained, specific risks discussed. Consent was given by the patient. Immediately prior to procedure a time out was called to verify the correctpatient, procedure, equipment, clerical and office support workers and site/side marked as required. Patient was prepped and draped in the usual sterile fashion. Wilfredo Collier MD 02/25/2023 documented in this encounter Nursing Notes * Cornelia Rodriguez LPN - 02/25/2023 10:02 AM EDT Chief Complaint Patient presents with Rheum Follow Up Follow up - bilateral thumb injections documented in this encounter Plan of Treatment Upcoming Encounters Date Type Specialty Care Team Description 03/31/2023 Office Visit Orthopedics Wilfredo Vázquez, DO [address] [place] [address] 04/07/2023 Office Visit Orthopedics Wilfredo Vázquez, DO [address] [place] [address] 04/14/2023 Office Visit Orthopedics Wilfredo Vázquez, DO [address] [place] [address] 05/01/2023 Office Visit Family Medicine Manav De La Vega, DO [address] [place] [address] Scheduled Procedures Name Priority Associated Diagnoses Date/Ti [...] 09/29/2012 Zoster Vaccines Completed 10/20/2020, 12/12/2019, 10/28/2011 Influenza Vaccine (FLU shot) Completed 09/2021, [...] this encounter Medical Devices Implanted Type Area Bottle Dealer Device Identifier Shelf Expiration Date Model / Serial / Lot 15cm X 20cm Xenmatrix Surgical Graft, Rectangle Implanted:Qty : 1 on 01/29/2022 by Tom Broderick MD at [place] [facility] [place] Graft N/A: Abdomen CR BARD : DAVOL [id number] 09/11/2022 [id number] / [id number] / [id number] Trial Lead Kit 50 Cm 16 Contact Implanted:Qty : 1 on 10/20/2017 by Gloria Pardo MD at OR [facility] N/A: Spine Thoracic [employer] : PAIN MGMT 08/08/2019 [id number] E / [id number] / Description:T9, 10,11 Clik X Mri [place] Implanted:Qty : 1 on 12/01/2017 by Gloria Pardo MD at OR [facility] N/A: Back [employer] : PAIN MGMT 07/15/2019 [facility] [id number] / / [id number] Device Fixate Suturing - [id number] Implanted:Qty : 1 on 05/02/2020 by Gloria Pardo MD at OR [facility] N/A: Back C-nario 03/21/2024 [id number] / / [id number] Trisha Sniderson Norberto [id number] - [id number] Implanted:Qty : 1 on 02/08/2022 at [facility] : DIAGNOSTIC INTERVENTION [id number] 10/10/2024 [id number] / / [id number] documented as of this encounter Procedures Procedure Name Priority Date/Time Associated Diagnosis Comments WA ARTHROCENTESIS ASPIR&/INJ SMALL JT/BURSA W/O US Routine 02/25/2023 10:03 AM EDT Primary osteoarthritis of both first carpometacarpal joints documented in this encounter Results * WA ARTHROCENTESIS ASPIR&/INJ SMALL JT/BURSA W/O US (02/25/2023 10:03 AM EDT) Narrative Wilfredo Collier MD - 02/25/2023 10:03 AM EDT Wilfredo Collier MD 02/25/2023 10:27 AM SM Joint Inj/Arthro: bilateral thumb [facility] on 02/25/2023 10:03 AM Indications: pain Details: 25 G needle, radial approach Medications (Right): (40mg of depomedrol) Medications (Left): (40mg of depomedrol ) Outcome: tolerated well, no immediate complications Procedure, treatment alternatives, risks and benefits explained, specific risks discussed. Consent was given by the patient. Immediately prior to procedure a time out was called to verify the correct patient, procedure, equipment, clerical and office support workers and site/side marked as required. Patient was prepped and draped in the usual sterile fashion. Wilfredo Collier MD PROCDOC FORM documented in this encounter Visit Diagnoses Diagnosis Primary osteoarthritis of both first carpometacarpal joints- Primary Primary localized osteoarthrosis, hand documented in this encounter Administered Medications Inactive Administered Medications - up to 3 most recent administrations Medication Order MAR Action Action Date Dose Rate Site methylPREDNISolone acetate (Depo-Medrol) 40 MG/ML inj 40 mg 40 mg, Intra-Articular, ONCE, On Fri02/25/23 at 1045, For 1 dose Given 02/25/2023 10:05 AM EDT 40 mg Hand Right methylPREDNISolone acetate (Depo-Medrol) 40 MG/ML inj 40 mg 40 mg, Intra-Articular, ONCE, On Fri02/25/23 at 1045, For 1 dose Given 02/25/2023 10:04 AM EDT 40 mg Hand Left documented in this encounter Advance Directives [...] the patient have Health Care Power of Skin Care Instructor? No Full Code 12/13/2015 11:19 AM 12/16/2015 5:05 PM This order reflects the patients wishes and were consensually agreed upon. Question Answer Comments Discussion of Advance Directives occurred with: Patient Does the patient have a Living Will? No Does the patient have Health Care Power of Skin Care Instructor? No Care Teams Freight Car Cleaner Delta System Relationship Specialty Start Date End Date Manav De La Vega DO [address] [place] [address] PCP - General Family Medicine 04/16/18 documented as of this encounter
--- NOTE | 2023-08-12 14:01 | History & Physical Report ---
Date of Service August 12, 2023 Assessment & Plan (1) Acute hypoxic respiratory failure: (2) Sepsis: (3) Parainfluenza: (4) Multifocal pneumonia: (5) Interstitial lung disease: (6) Elevated troponin: (7) S/P insertion of spinal cord stimulator: (8) Sacroiliitis: Plan Pt is an 82yoM with a PMHx significant for Interstitial lung disease (ILD), Celiac disease with dermatitis herpetiformis, DMII, CAD, Hx of [place], chronic back pain s/p spinal cord stimulator, HTN, Nash's esophagus, BPH, history of multiple abdominal surgeries admitted with multifocal pneumonia in the setting of a parainfluenza viral infection. Acute hypoxic respiratory Failure Parainfluenza viral infection Interstitial Lung Disease Sepsis Multifocal Pneumonia Pt presenting with RUIZ, cough congestion for the past 5 days WBC elevated at >13K, tachycardic, tachypneic, requiring 4L via NC. Does not use oxygen at home Chest XRAY with noted pulmonary infection-multifocal pneumonia, r/o pulmonary edema. CT chest pending Lactate not elevated on admission, procal significantly elevated at 17.58 Sputum Cx, Blood Cx pending Empiric Vanc, Cefepime and doxycycline. MRSA nares ordered, if negative can discontinue vanc. Duoneparveen scheduled Pulm consult- appreciate recs Elevated troponin Hx of DC CAD Elevated at 52.5 to 65.8, trend until it peaks Likely due to demand EKG with sinus tachycardia, echo pending Consider cardiology consult if echo with acute changes, trops significantly elevated Electrolyte Derangements Hyponatremia- likely due to dehydration, NSS @80 Hypomagnesemia- replete as needed Chronic Pain, Sacroiliitis- s/p spinal cord stimulator, continue home hydrocodone-acetaminophen 10-325mg, gabapentin, zanaflex. As pt on narcotic, continue home colace DMII- pending AM hgba1c, holding home metoformin, ISS Celiac disease with dermatitis herpetiformis- continue PRN dapsone, gluten free diet HLD- statin intolerant, continue home zetia, red yeast extract HTN- continue home lisinopril GERD- continue home ppi BPH- continue home finasteride CODE STATUS: Full code DVT prophylaxis- on Lovenox Diet: DMII, gluten free Dispo: PCU/tel History of Present Illness Chief Complaint: SOB Primary Care Provider: Manav De La Vega DO Pt is an 82yoM with a PMHx significant for Interstitial lung disease (ILD), Celiac disease with dermatitis herpetiformis, DMII, CAD, Hx of [place], chronic back pain s/p spinal cord stimulator, HTN, Nash's esophagus, BPH, history of multiple abdominal surgeries admitted with multifocal pneumonia in the setting of a parainfluenza viral infection. Daughter present at bedside but most of the history obtained from the pt. States that he started having a cough, hoarse voice and dyspnea on exertion right after thanksgiving, about 5 days ago. States that this was associated with nausea when he was up and moving around but denies vomiting. States that he has not been able to eat and drink over the past few days, Does not use oxygen at baseline, nonsmoker. Hx of ILD, follows with pulmonology. Notes a Hx of "infected mesh" in the past that he states was related to a covid infection. Concerned about getting pain medications for his back and RLE pain. States that he has a pain nerve stimulator but not able to use it as left supplies home. States that his daughter will be bringing it in. ED Course: Received a L of fluids, a dose of IV Cefepime and a Xoponex breathing treatment Allergies Allergy/AdvReac Type Severity Reaction Status Date / Time iodine Allergy Intermediate ITCHY. Verified 08/12/23 11:46 SAME REACTION GLUTEN Penicillins Allergy Intermediate RASH Verified 08/12/23 11:46 gluten Allergy Mild rash Verified 08/12/23 11:46 tramadol Allergy Unknown unknown Verified 08/12/23 11:46 codeine AdvReac Mild itching Verified 08/12/23 11:46 Home Medications Medication Instructions Recorded Confirmed Type gabapentin 600 mg tablet See Rx Instructions .Route .COMPLEX 08/06/19 08/12/23 History pantoprazole 40 mg tablet,delayed 40 mg PO DAILY 08/06/19 08/12/23 History release nitroglycerin 0.4 mg sublingual 0.4 mg sublingual Q5M PRN chest 02/18/20 08/12/23 Rx tablet pain #25 tabs finasteride 5 mg tablet 5 mg PO DAILY 09/04/20 08/12/23 History hydrocodone 10 mg-acetaminophen 1 tab PO Q6H PRN Pain 12/08/20 08/12/23 History 325 mg tablet acetaminophen 325 mg capsule 325 - 650 mg PO QID PRN Pain 03/16/21 08/12/23 History (Tylenol) dapsone 25 mg tablet 50 mg PO DAILY PRN Itching 03/16/21 08/12/23 History lisinopril 5 mg tablet 5 mg PO DAILY #90 tabs 05/29/21 08/12/23 Rx aspirin 81 mg tablet,delayed 81 mg PO DAILY 07/27/21 08/12/23 History release cyanocobalamin (vitamin B-12) 100 100 mcg PO DAILY 07/27/21 08/12/23 History mcg tablet (Vitamin B-12) diclofenac sodium 1 % topical gel 4 g topical BID PRN Pain 07/27/21 08/12/23 History docusate sodium 100 mg capsule 100 mg PO BID 07/27/21 08/12/23 History multivitamin 1 tab PO DAILY 07/27/21 08/12/23 History red yeast rice 600 mg tablet 600 mg PO BID 07/27/21 08/12/23 History tizanidine 2 mg tablet 2 mg PO BID PRN MUSCLE SPASMS 07/27/21 08/12/23 History ezetimibe 10 mg tablet (Zetia) 10 mg PO DAILY #90 tabs 08/22/21 08/12/23 Rx methylprednisolone 4 mg tablets in 4 mg PO DAILY #21 ea 11/28/22 08/12/23 Rx a dose pack metformin 500 mg tablet,extended 500 mg PO BID 08/12/23 08/12/23 History release 24 hr Past Med/Surg History Medical History Sacroiliitis Barretts esophagus Chronic back pain Spinal cord stimulator status Esophageal reflux Aortic valve sclerosis Hypertension Dyslipidemia CAD (coronary artery disease) NSTEMI on 06/20/11 (peak troponin of 2.7) Cardiac catheterization 06/21/11: Multivessel disease. mid LAD stenosis 40% followed by a long 70% stenosis at the bifurcation of the third diagonal vessel. The third diagonal vessel also had an ostial 70% lesion. The distal LAD towards the apex was completely occluded but filled from left to left and [id number] collaterals. A large septal branch also had a 60% proximal stenosis. The distal circumflex had a 90% long stenosis; proximally there was a 30% stenosis. The RCA had a proximal 50-60% stenosis. This was the dominant vessel. Medical management was instituted. Spinal stenosis Surgical History S/P insertion of spinal cord stimulator Dr. Arredondo - 2017 H/O lumbar discectomy L2-3, L3-4 w/ artificial discs by Dr. Huerta 11/2015 H/O exploratory laparotomy , lysis of adhesions for SBO H/O hernia repair History of hemilaminectomy S/P shoulder surgery S/P knee surgery S/P cholecystectomy S/P appendectomy Family History Mother Coronary heart disease Social History Smoking Status: Never smoker Second Hand Exposure: No; Do You Dip or Chew Tobacco: No; Hx Alcohol Use: No Hx Substance Use: No Preferred Language: Kiswahili Communication Ability: Effective Visual Impairment: No Limitations Hearing Ability: Hard of Hearing Medical Officer Psychiatry Required: No Beliefs That Will Affect Care: None marital status: / Current Living Situation: Alone current occupational status: retired Feels Safe at Home: Yes Safety Concerns: Feels Safe At This Time Assistive Devices: None Review of Systems Review of Systems: All systems reviewed & are unremarkable except as noted in HPI & below Physical Exam Physical Exam: General: Alert, oriented. Skin: No noted rashes or bruises Psych: Appropriate mood and affect Neuro: difficulty with movement in the bed HEENT: NC/AT Chest: Nontender to palpation. CV: RRR, blowing murmur appreciated Resp: Breath sounds with rhonchi bilaterally, no increased effort of breathing. NC in nares Abdomen: Soft, surgical scar noted Extremities: No edema in lower extremities bilaterally. Results & Data Results & Data Vital Signs (Past 12 Hours) Vital Signs Temp Pulse Pulse Resp BP BP Pulse Ox 08/12/23 11:59 92 H 19 112/75 96 08/12/23 11:49 86 L 08/12/23 11:48 85 18 112/75 93 08/12/23 10:27 97 H 08/12/23 10:23 96 08/12/23 09:52 36.4 C L 84 20 107/54 L 86 L O2 Del Method O2 Flow Rate 08/12/23 11:59 Nasal Cannula 6 08/12/23 11:49 Room Air 08/12/23 11:48 Nasal Cannula 08/12/23 10:27 08/12/23 10:23 Nasal Cannula 6 08/12/23 09:52 Room Air Diagnostic Findings Chest X-Ray 08/12/23 10:23 XR chest 1V portable CLINICAL HISTORY: Sepsis. COMPARISON STUDY: Chest radiograph June 20, 2011. FINDINGS: Lung volumes are mildly diminished. There is no pneumothorax or pleural effusion. Cardiomegaly is unchanged. There is mild interstitial thickening. Multifocal airspace opacities are noted, including bibasilar opacities and a right midlung airspace opacity. IMPRESSION: Multifocal airspace opacities and interstitial thickening. The findings favor multifocal pneumonia. Pulmonary edema could appear similar. Radiographic follow-up to ensure resolution is recommended. ACT 112: Negative or not required by law. Electronically signed by: Neville Fall M.D. 08/12/2023 11:38 AM
--- NOTE | 2023-08-12 14:17 | Electrocardiogram Report ---
Test Reason : Blood Pressure : / mmHG Vent. Rate : 110 BPM Atrial Rate : 110 BPM P-R Int : 184 ms QRS Dur : 076 ms QT Int : 328 ms P-R-T Axes : 046 002 019 degrees QTc Int : 443 ms Sinus tachycardia with Premature atrial complexes , some consecutive Otherwise normal ECG When compared with ECG of 27-JUL-2021 00:58, Vent. rate has increased BY 42 BPM Nonspecific T wave abnormality, worse in Lateral leads Confirmed by Marino Amin ([id number]) on 08/12/2023 2:17:28 PM Referred By: Confirmed By:Haider Amin
[2023-08-12] MEDS: MAGNESIUM SULFATE / D5W 1 GM/100 ML BAG IV SCH ×2 (14:29→15:34)
[2023-08-12] MEDS ORDERED: HYDROcodone/ACETAMINOPHEN 10/325 TAB PO ONE (14:34)
[2023-08-12] MEDS ORDERED: GLUCOSE 40% GEL 15 GM TUBE PO PRN (16:14)
[2023-08-12] MEDS ORDERED: VANCOMYCIN CONSULT ACTIVE PRN (16:14)
[2023-08-12] MEDS ORDERED: tiZANidine HCL 4 MG TABLET PO PRN (16:14)
[2023-08-12] MEDS ORDERED: DICLOFENAC SOD 1% GEL 100 GM TUBE EXT PRN (16:14)
[2023-08-12] MEDS ORDERED: DEXTROSE 50% 50 ML SYRINGE IV PRN (16:14)
[2023-08-12] MEDS ORDERED: CARBOHYDRATES FOR HYPOGLYCEMIA PO PRN (16:14)
[2023-08-12] MEDS ORDERED: GLUCOSE 10 TAB/TUBE PO PRN (16:14)
[2023-08-12] MEDS ORDERED: GLUCAGON FOR INJ 1 MG VIAL SQ PRN (16:14)
[2023-08-12] MEDS ORDERED: GABAPENTIN 600 MG TAB PO SCH (16:14)
[2023-08-12] MEDS ORDERED: DAPSONE 25 MG TAB PO PRN (16:43)
[2023-08-12] MEDS ORDERED: VANCOMYCIN HCL 1,750 MG in SODIUM CHLORIDE 0.9% 500 ML IV ONE (16:45)
[2023-08-12] MEDS: ALBUT/IPRATROP 3MG/0.5MG NEB 3 ML VIAL NEB SCH ×2 (16:54→20:27)
[2023-08-12] MEDS: INSULIN ASPART PER UNIT CHARGE SC SCH ×2 (17:18→21:27)
[2023-08-12] MEDS: ENOXAPARIN INJ 40 MG/0.4 ML SYR SQ SCH (18:08)
--- NOTE | 2023-08-12 18:19 | CT Scan Report ---
CT chest diagnostic wo con CT DOSE: 484.49 mGy.cm CLINICAL HISTORY: 82 years-old Male with hypoxia. Acute hypoxia with cough TECHNIQUE: Multiaxial CT images of the chest were performed without contrast. A dose lowering techni que was utilized adhering to the principles of ALARA. COMPARISON: Radiograph of same day FINDINGS: Unremarkable thyroid. Subcentimeter supraclavicular lymph nodes measure up to 9 mm on the r ight. There are hyperdense and partially calcified mediastinal and hilar lymph nodes measuring up to approximately 10 mm. Mild inflammatory stranding surrounds these lymph nodes. Heart is mildly enlarge d. Extensive coronary artery calcifications. Atherosclerosis of the aorta. Dilation of the pulmonary artery or the main pulmonary artery measuring 4.4 cm. Bilateral calcified pleural plaques. Trace right pleural effusion. No pneumothorax. Subpleural reticu lation noted bilaterally. Patchy right greater than left bibasilar groundglass and consolidative opac ities with additional right upper and right middle lobe consolidation. Mild intralobular septal thick ening. Cylindrical bibasilar prominent bronchiectasis. Cholecystectomy. Hepatic steatosis. No acute fracture. Partially imaged spinal stimulator leads. IMPRESSION: 1. Multifocal pneumonia, greatest within the right lung. 2. Mild mediastinal and hilar lymphadenopathy with subcentimeter supraclavicular lymph nodes. Attenti on on follow-up recommended. 3. Evidence of asbestos-related pleural disease. 4. Trace right pleural effusion. ACT 112: Negative or not required by law. Electronically signed by: Marck Davis M.D. 08/12/2023 6:17 PM
[2023-08-12 18:44] LABS: Troponin I High Sensitivity 84.6 pg/ml (0-20)
--- NOTE | 2023-08-12 19:02 | Pulmonary Consultation ---
Date of Consultation August 12, 2023 Assessment & Plan (1) Multifocal pneumonia: (2) Interstitial lung disease: (3) Sepsis: (4) Parainfluenza: (5) Acute hypoxic respiratory failure: Plan CT chest 08/12/2023 personally reviewed: Increase reticular markings in the periphery of the upper lobes, traction bronchiectasis of the right middle lobe as well as bilateral lower lobes Early honeycombing on the periphery of the right middle lobe as well as right lower lobe Dense consolidative process along with groundglass opacities appreciated in bilateral lower lobes as well as right upper lobe Pleural calcification with possible rounded atelectasis of the right lower lobe supradiaphragmatic No significant mediastinal lymphadenopathy This CT was compared to the one which CT abdomen pelvis which was done 07/27/2021, there is worsening of the reticular markings as well as traction bronchiectasis of the lower lobes -- Acute hypoxic respiratory failure Multifactorial Parainfluenza positive, rest of the bio fire negative Procalcitonin 17.58 Nasal MRSA negative --History of ILD Seems to be getting worse compared to CT abdomen pelvis which was done 07/27/2021 -- History of celiac disease with dermatitis herpetiformis On dapsone Plan: Continue with broad-spectrum antibiotics given the dense consolidative process appreciated bilaterally Follow-up sputum culture and blood culture Try to avoid steroids unless absolutely indicated in somebody who is influenza/parainfluenza Please note the above document was generated using voice recognition software. It may contain grammatical, syntax or spelling errors.Any formal questions or concerns about the content, text or information contained within the body of this dictation should be directly addressed to the provider for clarification. History of Present Illness Attending Physician: Kiarra Gresham MD History of Present Illness 82-year-old male coming to the hospital for shortness of breath Past medical history: ILD, celiac disease with dermatitis herpetiformis, diabetes, coronary artery disease, chronic back pain status post spinal cord stimulator hypertension, BPH Pulmonary consulted for abnormal chest CT and hypoxia At the time of examination patient was saturating 88% on room air. Not in respiratory distress He was able to talk in full sentences. He stated by he was having issues with breathing for approximately couple of days. Did have subjective chills but no fever. Is coughing and bringing up clear phlegm. Used to have hemoptysis couple of days back but not anymore. 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 Did not wear mask at that time No history of lung cancer in the family. No history of any other autoimmune disease/ILD in the family Allergies Allergy/AdvReac Type Severity Reaction Status Date / Time iodine Allergy Intermediate ITCHY. Verified 08/12/23 11:46 SAME REACTION GLUTEN Penicillins Allergy Intermediate RASH Verified 08/12/23 11:46 gluten Allergy Mild rash Verified 08/12/23 11:46 tramadol Allergy Unknown unknown Verified 08/12/23 11:46 codeine AdvReac Mild itching Verified 08/12/23 11:46 Home Medications Medication Instructions Recorded Confirmed Type gabapentin 600 mg tablet See Rx Instructions .Route .COMPLEX 08/06/19 08/12/23 History pantoprazole 40 mg tablet,delayed 40 mg PO DAILY 08/06/19 08/12/23 History release nitroglycerin 0.4 mg sublingual 0.4 mg sublingual Q5M PRN chest 02/18/20 08/12/23 Rx tablet pain #25 tabs finasteride 5 mg tablet 5 mg PO DAILY 09/04/20 08/12/23 History hydrocodone 10 mg-acetaminophen 1 tab PO Q6H PRN Pain 12/08/20 08/12/23 History 325 mg tablet acetaminophen 325 mg capsule 325 - 650 mg PO QID PRN Pain 03/16/21 08/12/23 History (Tylenol) dapsone 25 mg tablet 50 mg PO DAILY PRN Itching 03/16/21 08/12/23 History lisinopril 5 mg tablet 5 mg PO DAILY #90 tabs 05/29/21 08/12/23 Rx aspirin 81 mg tablet,delayed 81 mg PO DAILY 07/27/21 08/12/23 History release cyanocobalamin (vitamin B-12) 100 100 mcg PO DAILY 07/27/21 08/12/23 History mcg tablet (Vitamin B-12) diclofenac sodium 1 % topical gel 4 g topical BID PRN Pain 07/27/21 08/12/23 History docusate sodium 100 mg capsule 100 mg PO BID 07/27/21 08/12/23 History multivitamin 1 tab PO DAILY 07/27/21 08/12/23 History red yeast rice 600 mg tablet 600 mg PO BID 07/27/21 08/12/23 History tizanidine 2 mg tablet 2 mg PO BID PRN MUSCLE SPASMS 07/27/21 08/12/23 History ezetimibe 10 mg tablet (Zetia) 10 mg PO DAILY #90 tabs 08/22/21 08/12/23 Rx methylprednisolone 4 mg tablets in 4 mg PO DAILY #21 ea 11/28/22 08/12/23 Rx a dose pack metformin 500 mg tablet,extended 500 mg PO BID 08/12/23 08/12/23 History release 24 hr Patient History Medical History Sacroiliitis Barretts esophagus Chronic back pain Spinal cord stimulator status Esophageal reflux Aortic valve sclerosis Hypertension Dyslipidemia CAD (coronary artery disease) NSTEMI on 06/20/11 (peak troponin of 2.7) Cardiac catheterization 06/21/11: Multivessel disease. mid LAD stenosis 40% followed by a long 70% stenosis at the bifurcation of the third diagonal vessel. The third diagonal vessel also had an ostial 70% lesion. The distal LAD towards the apex was completely occluded but filled from left to left and [id number] collaterals. A large septal branch also had a 60% proximal stenosis. The distal circumflex had a 90% long stenosis; proximally there was a 30% stenosis. The RCA had a proximal 50-60% stenosis. This was the dominant vessel. Medical management was instituted. Spinal stenosis Surgical History S/P insertion of spinal cord stimulator Dr. Arredondo - 2017 H/O lumbar discectomy L2-3, L3-4 w/ artificial discs by Dr. Huerta 11/2015 H/O exploratory laparotomy , lysis of adhesions for SBO H/O hernia repair History of hemilaminectomy S/P shoulder surgery S/P knee surgery S/P cholecystectomy S/P appendectomy Family History Mother Coronary heart disease Social History Smoking Status: Never smoker Second Hand Exposure: No; Do You Dip or Chew Tobacco: No; Hx Alcohol Use: No Hx Substance Use: No Preferred Language: Comoran Communication Ability: Effective Visual Impairment: No Limitations Hearing Ability: Hard of Hearing Licensed Tax Consultant Required: No Beliefs That Will Affect Care: None marital status: / Current Living Situation: Alone current occupational status: retired Feels Safe at Home: Yes Safety Concerns: Feels Safe At This Time Assistive Devices: None Review of Systems 2 Review of Systems: All systems reviewed & are unremarkable except as noted in HPI & below Physical Exam 2 Physical Exam: Constitutional: No acute distress HEENT: EOMI, PERRLA Respiratory system: Decreased air entry bilaterally, no wheeze, no rhonchi, positive crackles bilateral lower lobes CVS: S1-S2 positive, positive 2 out of 6 systolic murmur appreciated best at aorta Abdomen: Soft, nontender, nondistended, positive bowel sounds x4 Extremities: +2 pulses bilaterally radialis/ dorsalis pedis, no cyanosis, no edema Neuro: Awake alert oriented x3 Psych: Normal mood and affect G/U: No Zaidi Skin: no rashes, warm and dry Lymphatic: no cervical or axillary lymphadenopathy Results & Data Results & Data Vital Signs (Past 12 Hours) Vital Signs Temp Pulse Pulse Resp BP BP Pulse Ox 08/12/23 18:11 37.3 C 63 18 110/63 94 08/12/23 17:32 64 08/12/23 16:55 67 24 92 08/12/23 16:37 08/12/23 16:24 36.7 C 67 18 110/63 92 08/12/23 16:17 68 18 101/65 96 08/12/23 14:20 36.4 C L 73 19 111/58 L 94 08/12/23 14:12 73 19 110/61 92 08/12/23 14:02 72 08/12/23 11:59 92 H 19 112/75 96 08/12/23 11:49 86 L 08/12/23 11:48 85 18 112/75 93 08/12/23 10:27 97 H 08/12/23 10:23 96 08/12/23 09:52 36.4 C L 84 20 107/54 L 86 L O2 Del Method O2 Flow Rate 08/12/23 18:11 Nasal Cannula 4 08/12/23 17:32 08/12/23 16:55 Nasal Cannula 4 08/12/23 16:37 Nasal Cannula 4 08/12/23 16:24 Nasal Cannula 4 08/12/23 16:17 Nasal Cannula 4 08/12/23 14:20 Nasal Cannula 4 08/12/23 14:12 Nasal Cannula 6 08/12/23 14:02 08/12/23 11:59 Nasal Cannula 6 08/12/23 11:49 Room Air 08/12/23 11:48 Nasal Cannula 08/12/23 10:27 08/12/23 10:23 Nasal Cannula 6 08/12/23 09:52 Room Air Laboratory Results 08/12/23 10:09 08/12/23 10:09 PG Care Time/CCT Total # of Minutes Spent Total Time Spent with Patient: Total time spent is greater than 50% in coordination of care (as documented) at patient's floor/unit and/or counseling patient: Coding Level of Care Code 34961 INT INP/OBS CARE 3/75MIN Diagnoses Multifocal pneumonia J18.9 Interstitial lung disease J84.9 Sepsis A41.9 Parainfluenza B34.8 Acute hypoxic respiratory failure J96.01
[2023-08-12 19:33] LABS: C Reactive Protein 14.38 mg/dl (0-0.5)
[2023-08-12] MEDS ORDERED: NON-FORMULARY MEDICATION (Red Yeast Rice 600 mg Tablet) PO SCH (21:00)
[2023-08-12] MEDS: DOCUSATE SODIUM 100 MG CAP PO SCH (21:24)
[2023-08-12] MEDS: GABAPENTIN 600 MG TAB PO SCH (21:25)
[2023-08-12] MEDS: DOXYCYCLINE HYCLATE 100 MG CAP PO SCH (21:25)
[2023-08-12] MEDS: HYDROcodone/ACETAMINOPHEN 10/325 TAB PO PRN (21:40)
[2023-08-12] MEDS: guaiFENesin 600 MG TABCR PO SCH (21:51)
[2023-08-12] MEDS ORDERED: diphenhydrAMINE Capsule 25 MG CAP PO ONE (22:04)
[2023-08-12] MEDS ORDERED: ONDANSETRON 4 MG OD TAB PO PRN (23:51)
[2023-08-13] MEDS ORDERED: VANCOMYCIN HCL 1,250 MG in SODIUM CHLORIDE 0.9% 500 ML IV SCH
[2023-08-13] MEDS: CEFEPIME 2,000 MG in SYRINGE 0 ML IV SCH ×2 (00:48→14:05)
[2023-08-13] MEDS: ALBUT/IPRATROP 3MG/0.5MG NEB 3 ML VIAL NEB SCH ×4 (07:03→20:47)
[2023-08-13 07:06] LABS: Hematocrit (blood only) 34.5 % (42.0-52.0); Hemoglobin 11.4 g/dl (14.0-18.0); Mean Corpuscular Hemoglobin 29.7 pg (25.0-34.0); Mean Corpuscular Volume 89.8 fL (80.0-100.0); Mean Platelet Volume 9.2 fL (9.4-12.4); Platelet Count 224 K/uL (130-400); RDW Coefficient of Variation 13.2 % (11.5-14.5); RDW Standard Deviation 43.3 fL (36.4-46.3); Red Blood Count 3.84 M/uL (4.70-6.10)
[2023-08-13 07:25] LABS: Albumin Globulin Ratio 1.2 (0.9-2); Albumin Level 3.1 gm/dl (3.4-5.0); BUN Creatinine Ratio 23.2 (10-20); Basophils # (auto) 0.06 K/uL (0.00-0.20); Basophils % (auto) 0.3 %; Bilirubin,Total 0.6 mg/dl (0.2-1.0); C Reactive Protein 29.28 mg/dl (0-0.5); Calcium 7.8 mg/dl (8.6-10.3); Eosinophils # (auto) 0.03 K/uL (0.00-0.50); Eosinophils % (auto) 0.1 %; Est GFR (African American) 85.5 ml/min; Est GFR (Non-African American) 73.7 ml/min; Globulin 2.5 gm/dl (2.5-4.0); Immature Granulocytes # (auto) 0.31 K/uL (0.01-0.20); Immature Granulocytes % (auto) 1.5 %; Lymphocytes # (auto) 1.64 K/uL (1.20-3.40); Lymphocytes % (auto) 7.8 %; Magnesium 2.1 mg/dl (1.7-2.4); Monocytes # (auto) 0.84 K/uL (0.11-0.59); Neutrophils # (auto) 18.22 K/uL (1.40-6.50); Neutrophils % (auto) 86.3 %; Phosphorus 2.6 mg/dl (2.5-4.9); Potassium 4.8 mmol/L (3.5-5.1); Total Protein 5.6 gm/dl (6.0-8.3)
[2023-08-13 08:27] LABS: Estimated Average Glucose 154 mg/dl
[2023-08-13] MEDS: DOCUSATE SODIUM 100 MG CAP PO SCH ×2 (08:53→20:38)
[2023-08-13] MEDS: HYDROcodone/ACETAMINOPHEN 10/325 TAB PO PRN ×3 (08:53→21:21)
[2023-08-13] MEDS: PANTOprazole 40 MG TAB PO SCH (08:54)
[2023-08-13] MEDS: INSULIN ASPART PER UNIT CHARGE SC SCH ×4 (08:54→21:11)
[2023-08-13] MEDS: GABAPENTIN 600 MG TAB PO SCH ×3 (08:55→20:38)
[2023-08-13] MEDS: DOXYCYCLINE HYCLATE 100 MG CAP PO SCH ×2 (08:55→20:38)
[2023-08-13] MEDS: ASPIRIN 81 MG ECTAB PO SCH (08:56)
[2023-08-13] MEDS: lisinopril 5 MG TAB PO SCH (08:56)
[2023-08-13] MEDS: CYANOCOBALAMIN (B-12) 100 MCG TABLET PO SCH (08:57)
[2023-08-13] MEDS: EZETIMIBE 10 MG TAB PO SCH (08:57)
[2023-08-13] MEDS: guaiFENesin 600 MG TABCR PO SCH ×2 (08:58→20:38)
[2023-08-13] MEDS ORDERED: PNEUMOCOCCAL VACCINE (PCV20) 20-VAL CONJ-DIP CRM/PF 0.5 ML SYR IM ONE (09:00)
--- NOTE | 2023-08-13 10:03 | XCELERA ---
[id number] [id number]
--- NOTE | 2023-08-13 15:38 | Hospitalist Progress Note ---
Date of Service August 13, 2023 Assessment & Plan (1) Acute hypoxic respiratory failure: (2) Sepsis: (3) Parainfluenza: (4) Multifocal pneumonia: (5) Interstitial lung disease: (6) Elevated troponin: (7) S/P insertion of spinal cord stimulator: (8) Sacroiliitis: Plan Pt is an 82yoM with a PMHx significant for Interstitial lung disease (ILD), Celiac disease with dermatitis herpetiformis, DMII, CAD, Hx of [place], chronic back pain s/p spinal cord stimulator, HTN, Nash's esophagus, BPH, history of multiple abdominal surgeries admitted with multifocal pneumonia in the setting of a parainfluenza viral infection. Acute hypoxic respiratory Failure Parainfluenza viral infection Interstitial Lung Disease Sepsis Multifocal Pneumonia Pt presenting with RUIZ, cough, congestion for the past 5 days WBC elevated at >13K, tachycardic, tachypneic, requiring 4L via NC. Does not use oxygen at home Chest XRAY with noted pulmonary infection-multifocal pneumonia, r/o pulmonary edema. CT chest with noted asbestos changes, multifocal pneumonia R>L, mediastinal and hilar lymphadenopathy with requested follow up Lactate not elevated on admission, procal significantly elevated at 17.58 Sputum Cx and Blood Cx x2 with no significant growth to date Continue Cefepime and doxycycline Duonebs scheduled Pulm consult- appreciate recs -no steroids -continue abx -continue mucinex, flutter valve -CT scan for follow up in 6-8 weeks, appears ILD worsening Elevated troponin Hx of [place] CAD Elevated at 52.5 to 65.8, 84.6, repeat pending Likely due to demand EKG with sinus tachycardia, echo with LVH and increased R ventricular pressure Consider cardiology consult if echo with acute changes, trops significantly elevated Electrolyte Derangements Hyponatremia- likely due to dehydration, NSS @80 Hypomagnesemia- replete as needed Chronic Pain, Sacroiliitis- s/p spinal cord stimulator, continue home hydrocodone-acetaminophen 10-325mg, gabapentin, zanaflex. As pt on narcotic, continue home colace DMII- pending AM hgba1c, holding home metoformin, ISS Celiac disease with dermatitis herpetiformis- continue PRN dapsone, gluten free diet HLD- statin intolerant, continue home zetia, red yeast extract HTN- continue home lisinopril GERD- continue home ppi BPH- continue home finasteride CODE STATUS: Full code DVT prophylaxis- on Lovenox Diet: DMII, gluten free Dispo: PCU/tele Admission and Anticipated Discharge Date Admission Date: August 12, 2023 Subjective Pt seen sitting up, comfortable, eating. States that he is feeling better. had a nosebleed that he thinks is related to the use of oxygen. [place] nauseated overnight. States it was due to being on 4L of oxygen as he flet better once he took it off. Feels like 2L is better for him. Review of Systems Review of Systems: All systems reviewed & are unremarkable except as noted in Subjective Physical Exam Physical Exam: General: Alert, oriented. Skin: No noted rashes or bruises Psych: Appropriate mood and affect Neuro: sitting up in bed HEENT: NC/AT Chest: Nontender to palpation. CV: RRR, blowing murmur appreciated Resp: Breath sounds with rhonchi bilaterally, no increased effort of breathing. NC in nares Abdomen: Soft, surgical scar noted Extremities: No edema in lower extremities bilaterally. Results & Data Results & Data Vital Signs (Past 12 Hours) Vital Signs Temp Pulse Pulse Pulse Resp BP Pulse Ox 08/13/23 15:17 59 L 18 94 08/13/23 15:08 36.7 C 62 18 102/61 93 08/13/23 14:41 92 08/13/23 11:33 36.5 C 61 18 95/59 L 91 08/13/23 07:23 37.2 C 72 19 110/64 92 08/13/23 07:19 66 20 93 08/13/23 07:14 62 08/13/23 07:06 66 18 93 O2 Del Method O2 Flow Rate 08/13/23 15:17 Nasal Cannula 2 08/13/23 15:08 Nasal Cannula 2.0 08/13/23 14:41 08/13/23 11:33 Room Air 08/13/23 07:23 Nasal Cannula 2.0 08/13/23 07:19 Nasal Cannula 2 08/13/23 07:14 08/13/23 07:06 Nasal Cannula 2
[2023-08-13] MEDS: ENOXAPARIN INJ 40 MG/0.4 ML SYR SQ SCH (17:01)
--- NOTE | 2023-08-13 17:18 | Pulmonology Progress Note ---
Date of Service August 13, 2023 Assessment & Plan (1) Multifocal pneumonia: (2) Interstitial lung disease: (3) Sepsis: (4) Parainfluenza: (5) Acute hypoxic respiratory failure: Plan CT chest 08/12/2023 personally reviewed: Increase reticular markings in the periphery of the upper lobes, traction bronchiectasis of the right middle lobe as well as bilateral lower lobes Early honeycombing on the periphery of the right middle lobe as well as right lower lobe Dense consolidative process along with groundglass opacities appreciated in bilateral lower lobes as well as right upper lobe Pleural calcification with possible rounded atelectasis of the right lower lobe supradiaphragmatic No significant mediastinal lymphadenopathy This CT was compared to the one which CT abdomen pelvis which was done 07/27/2021, there is worsening of the reticular markings as well as traction bronchiectasis of the lower lobes -- Acute hypoxic respiratory failure Multifactorial Parainfluenza positive, rest of the bio fire negative Procalcitonin 17.58 Nasal MRSA negative --History of ILD Seems to be getting worse compared to CT abdomen pelvis which was done 07/27/2021 Never been treated for it Follows up with pulmonary at [facility] -- History of celiac disease with dermatitis herpetiformis On dapsone Plan: Continue with antibiotics Follow-up sputum culture Continue with Mucinex and flutter valve Patient will need CT chest in approximately 6-8 weeks to follow-up on the infiltrates. Please note the above document was generated using voice recognition software. It may contain grammatical, syntax or spelling errors.Any formal questions or concerns about the content, text or information contained within the body of this dictation should be directly addressed to the provider for clarification. Admission and Anticipated Discharge Date Admission Date: August 12, 2023 Subjective Patient seen and examined at bedside. No acute distress, no adverse events overnight He was saturating 88-89% on room air at rest Overall he says he is feeling better since coming to the hospital Has been using flutter valve bringing up clear phlegm No hemoptysis since coming to the hospital Denies any dizziness Fair appetite, no nausea or vomiting Review of Systems 2 Review of Systems: All systems reviewed & are unremarkable except as noted in Subjective Physical Exam 2 Physical Exam: Constitutional: No acute distress HEENT: EOMI, PERRLA Respiratory system: Decreased air entry bilaterally, no wheeze, no rhonchi, positive crackles bilateral lower lobes CVS: S1-S2 positive, positive 2 out of 6 systolic murmur appreciated best at aorta Abdomen: Soft, nontender, nondistended, positive bowel sounds x4 Extremities: +2 pulses bilaterally radialis/ dorsalis pedis, no cyanosis, no edema Neuro: Awake alert oriented x3 Psych: Normal mood and affect G/U: No Zaidi Skin: no rashes, warm and dry Lymphatic: no cervical or axillary lymphadenopathy Results & Data Results & Data Vital Signs (Past 12 Hours) Vital Signs Temp Pulse Pulse Pulse Resp BP Pulse Ox 08/13/23 16:13 08/13/23 15:17 59 L 18 94 08/13/23 15:08 36.7 C 62 18 102/61 93 08/13/23 14:41 92 08/13/23 11:33 36.5 C 61 18 95/59 L 91 08/13/23 10:23 08/13/23 07:23 37.2 C 72 19 110/64 92 08/13/23 07:19 66 20 93 08/13/23 07:14 62 08/13/23 07:06 66 18 93 Pulse Ox O2 Del Method O2 Del Method O2 Flow Rate O2 Flow Rate 08/13/23 16:13 Nasal Cannula 08/13/23 15:17 Nasal Cannula 2 08/13/23 15:08 Nasal Cannula 2.0 08/13/23 14:41 08/13/23 11:33 Room Air 08/13/23 10:23 92 Nasal Cannula 2 08/13/23 07:23 Nasal Cannula 2.0 08/13/23 07:19 Nasal Cannula 2 08/13/23 07:14 08/13/23 07:06 Nasal Cannula 2 Laboratory Results 08/13/23 06:39 08/13/23 06:39 PG Care Time/CCT Total # of Minutes Spent Total Time Spent with Patient: Total time spent is greater than 50% in coordination of care (as documented) at patient's floor/unit and/or counseling patient: Coding Level of Care Code 27394 SUB INP/OBS CARE 3/50MIN Diagnoses Multifocal pneumonia J18.9 Interstitial lung disease J84.9 Sepsis A41.9 Parainfluenza B34.8 Acute hypoxic respiratory failure J96.01
[2023-08-13] MEDS: SODIUM CHLORIDE 0.9% 1,000 ML IV SCH ×2 (17:40→18:55)
[2023-08-14] MEDS: CEFEPIME 2,000 MG in SYRINGE 0 ML IV SCH ×2 (00:43→11:03)
[2023-08-14 06:23] LABS: Basophils # (auto) 0.03 K/uL (0.00-0.20); Basophils % (auto) 0.2 %; Eosinophils # (auto) 0.03 K/uL (0.00-0.50); Eosinophils % (auto) 0.2 %; Hematocrit (blood only) 31.7 % (42.0-52.0); Hemoglobin 10.4 g/dl (14.0-18.0); Immature Granulocytes # (auto) 0.15 K/uL (0.01-0.20); Lymphocytes # (auto) 1.36 K/uL (1.20-3.40); Lymphocytes % (auto) 9.1 %; Mean Corpuscular Hemoglobin 29.5 pg (25.0-34.0); Mean Corpuscular Hgb Conc 32.8 g/dL (32.0-36.0); Mean Corpuscular Volume 89.8 fL (80.0-100.0); Mean Platelet Volume 9.4 fL (9.4-12.4); Monocytes # (auto) 0.52 K/uL (0.11-0.59); Monocytes % (auto) 3.5 %; Neutrophils # (auto) 12.92 K/uL (1.40-6.50); Platelet Count 213 K/uL (130-400); RDW Coefficient of Variation 13.2 % (11.5-14.5); RDW Standard Deviation 43.2 fL (36.4-46.3); Red Blood Count 3.53 M/uL (4.70-6.10); White Blood Count 15.01 K/ul (4.8-10.8)
[2023-08-14 06:35] LABS: Albumin Globulin Ratio 1.2 (0.9-2); BUN Creatinine Ratio 24.1 (10-20); Bilirubin,Total 0.5 mg/dl (0.2-1.0); Calcium 8.1 mg/dl (8.6-10.3); Creatinine Clr Calc Pharmacy 48.3 ml/min; Est GFR (Non-African American) 60.4 ml/min; Globulin 2.6 gm/dl (2.5-4.0); Magnesium 2.1 mg/dl (1.7-2.4); Phosphorus 2.7 mg/dl (2.5-4.9); Potassium 4.4 mmol/L (3.5-5.1); Total Protein 5.6 gm/dl (6.0-8.3)
[2023-08-14] MEDS: ALBUT/IPRATROP 3MG/0.5MG NEB 3 ML VIAL NEB SCH ×2 (07:18→11:23)
[2023-08-14] MEDS: HYDROcodone/ACETAMINOPHEN 10/325 TAB PO PRN ×2 (07:24→13:14)
[2023-08-14] MEDS: EZETIMIBE 10 MG TAB PO SCH (08:01)
[2023-08-14] MEDS: guaiFENesin 600 MG TABCR PO SCH (08:01)
[2023-08-14] MEDS: ASPIRIN 81 MG ECTAB PO SCH (08:01)
[2023-08-14] MEDS: GABAPENTIN 600 MG TAB PO SCH ×2 (08:02→13:27)
[2023-08-14] MEDS: PANTOprazole 40 MG TAB PO SCH (08:02)
[2023-08-14] MEDS: CYANOCOBALAMIN (B-12) 100 MCG TABLET PO SCH (08:02)
[2023-08-14] MEDS: DOXYCYCLINE HYCLATE 100 MG CAP PO SCH (08:02)
[2023-08-14] MEDS: lisinopril 5 MG TAB PO SCH (08:03)
[2023-08-14] MEDS: DOCUSATE SODIUM 100 MG CAP PO SCH (08:04)
[2023-08-14] MEDS: INSULIN ASPART PER UNIT CHARGE SC SCH ×2 (08:06→13:27)
--- NOTE | 2023-08-14 08:54 | Discharge Summary ---
Discharge Summary Date of Service August 14, 2023 Notes For Next Care Provider Please ensure close follow up with Pulmonology for worsening lung disease on imaging. Pulmonology recommending repeat chest CT in 6-8 weeks Medication Changes From Visit Cefdinir 300mg BID x 5 more days Doxycycline 100md x 5 more days Mucinex BID Admission HPI Per Admitting Provider Pt is an 82yoM with a PMHx significant for Interstitial lung disease (ILD), Celiac disease with dermatitis herpetiformis, DMII, CAD, Hx of [place], chronic back pain s/p spinal cord stimulator, HTN, Nash's esophagus, BPH, history of multiple abdominal surgeries admitted with multifocal pneumonia in the setting of a parainfluenza viral infection. Daughter present at bedside but most of the history obtained from the pt. States that he started having a cough, hoarse voice and dyspnea on exertion right after thanksgiving, about 5 days ago. States that this was associated with nausea when he was up and moving around but denies vomiting. States that he has not been able to eat and drink over the past few days, Does not use oxygen at baseline, nonsmoker. Hx of ILD, follows with pulmonology. Notes a Hx of "infected mesh" in the past that he states was related to a covid infection. Concerned about getting pain medications for his back and RLE pain. States that he has a pain nerve stimulator but not able to use it as left supplies home. States that his daughter will be bringing it in. ED Course: Received a L of fluids, a dose of IV Cefepime and a Xoponex breathing treatment Admission Exam Per Admitting Provider General: Alert, oriented. Skin: No noted rashes or bruises Psych: Appropriate mood and affect Neuro: difficulty with movement in the bed HEENT: NC/AT Chest: Nontender to palpation. CV: RRR, blowing murmur appreciated Resp: Breath sounds with rhonchi bilaterally, no increased effort of breathing. NC in nares Abdomen: Soft, surgical scar noted Extremities: No edema in lower extremities bilaterally. Principal Dx & Hospital Course #1 = Principal Diagnosis (1) Acute hypoxic respiratory failure: (2) Sepsis: (3) Parainfluenza: (4) Multifocal pneumonia: (5) Interstitial lung disease: (6) Elevated troponin: (7) S/P insertion of spinal cord stimulator: (8) Sacroiliitis: Plan Pt is an 82yoM with a PMHx significant for Interstitial lung disease (ILD), Celiac disease with dermatitis herpetiformis, DMII, CAD, Hx of [place], chronic back pain s/p spinal cord stimulator, HTN, Nash's esophagus, BPH, history of multiple abdominal surgeries admitted with multifocal pneumonia in the setting of a parainfluenza viral infection. Acute hypoxic respiratory Failure Parainfluenza viral infection Interstitial Lung Disease Sepsis Multifocal Pneumonia Pt presented with RUIZ, cough, congestion for the past 5 days WBC elevated at >13K, tachycardic, tachypneic, requiring 4L via NC. Does not use oxygen at home Chest XRAY with noted pulmonary infection-multifocal pneumonia, r/o pulmonary edema. CT chest with noted asbestos changes, multifocal pneumonia R>L, mediastinal and hilar lymphadenopathy with requested follow up. Pulm recommending follow up CT chest in 6-8 weeks. Lactate not elevated on admission, procal significantly elevated at 17.58 Sputum Cx and Blood Cx x2 with no significant growth to date Treated with Cefepime and doxycycline for 2 days and pt's symptoms improved dramatically. Was ambulating the hallways, talking with staff on Day 2. Alvarez were scheduled Pulm consult- appreciate recs. Recommended the following: -no steroids in setting of parainfluenza infection -continue abx -continue mucinex, flutter valve -CT scan for follow up in 6-8 weeks, appears ILD worsening Elevated troponin Hx of KS CAD hs-trop elevated at 52.5 to 65.8, 84.6 before downtrending to 42.8 Likely due to demand in the setting of respiratory failure EKG with sinus tachycardia, echo with LVH and increased R ventricular pressure Consider cardiology and pulmonology follow up outpatient. Electrolyte Derangements Hyponatremia- likely due to dehydration, NSS @80. Sodium 135 on discharge, likely pt's baseline Hypomagnesemia- repleted as needed. Magnesium 2.1 on discharge. Chronic Pain, Sacroiliitis- s/p spinal cord stimulator, continue home hydrocodone-acetaminophen 10-325mg, gabapentin, zanaflex. As pt on narcotic, continue home colace DMII-hgba1c of 7.0, ISS while hospitalized. Continue home metformin after discharge. Celiac disease with dermatitis herpetiformis- continue PRN dapsone, gluten free diet HLD- statin intolerant, continue home zetia, red yeast extract HTN- continue home lisinopril GERD- continue home ppi BPH- continue home finasteride Discharge Exam General: Alert, oriented. Skin: No noted rashes or bruises Psych: Appropriate mood and affect Neuro: sitting up in bed HEENT: NC/AT Chest: Nontender to palpation. CV: RRR, blowing murmur appreciated Resp: Breath sounds with rhonchi bilaterally, no increased effort of breathing. Abdomen: Soft, surgical scar noted Extremities: No edema in lower extremities bilaterally. Updated Medication List Medication Instructions Recorded Confirmed Type gabapentin 600 mg tablet See Rx Instructions .Route .COMPLEX 08/06/19 08/12/23 History pantoprazole 40 mg tablet,delayed 40 mg PO DAILY 08/06/19 08/12/23 History release nitroglycerin 0.4 mg sublingual 0.4 mg sublingual Q5M PRN chest 02/18/20 08/12/23 Rx tablet pain #25 tabs finasteride 5 mg tablet 5 mg PO DAILY 09/04/20 08/12/23 History hydrocodone 10 mg-acetaminophen 1 tab PO Q6H PRN Pain 12/08/20 08/12/23 History 325 mg tablet acetaminophen 325 mg capsule 325 - 650 mg PO QID PRN Pain 03/16/21 08/12/23 History (Tylenol) dapsone 25 mg tablet 50 mg PO DAILY PRN Itching 03/16/21 08/12/23 History lisinopril 5 mg tablet 5 mg PO DAILY #90 tabs 05/29/21 08/12/23 Rx aspirin 81 mg tablet,delayed 81 mg PO DAILY 07/27/21 08/12/23 History release cyanocobalamin (vitamin B-12) 100 100 mcg PO DAILY 07/27/21 08/12/23 History mcg tablet (Vitamin B-12) diclofenac sodium 1 % topical gel 4 g topical BID PRN Pain 07/27/21 08/12/23 History docusate sodium 100 mg capsule 100 mg PO BID 07/27/21 08/12/23 History multivitamin 1 tab PO DAILY 07/27/21 08/12/23 History red yeast rice 600 mg tablet 600 mg PO BID 07/27/21 08/12/23 History tizanidine 2 mg tablet 2 mg PO BID PRN MUSCLE SPASMS 07/27/21 08/12/23 History ezetimibe 10 mg tablet (Zetia) 10 mg PO DAILY #90 tabs 08/22/21 08/12/23 Rx metformin 500 mg tablet,extended 500 mg PO BID 08/12/23 08/12/23 History release 24 hr cefdinir 300 mg capsule 300 mg PO BID #10 caps 08/14/23 Rx doxycycline hyclate 100 mg capsule 100 mg PO BID #10 caps 08/14/23 Rx guaifenesin 600 mg tablet, 1,200 mg (2 x 600 mg) PO Q12 #14 08/14/23 Rx extended release 12 hr (Mucinex) tabs Hospital Stay Data Consultations 08/12/23 12:06 ED Decision to Admit Stat 08/12/23 17:17 Consult Pulmonology Routine Diagnostic Imagining Performed 08/12/23 16:14 CT chest diagnostic wo con Urgent Chest X-Ray 08/12/23 10:23 XR chest 1V portable CLINICAL HISTORY: Sepsis. COMPARISON STUDY: Chest radiograph June 20, 2011. FINDINGS: Lung volumes are mildly diminished. There is no pneumothorax or pleural effusion. Cardiomegaly is unchanged. There is mild interstitial thickening. Multifocal airspace opacities are noted, including bibasilar opacities and a right midlung airspace opacity. IMPRESSION: Multifocal airspace opacities and interstitial thickening. The findings favor multifocal pneumonia. Pulmonary edema could appear similar. Radiographic follow-up to ensure resolution is recommended. ACT 112: Negative or not required by law. Electronically signed by: Neville Fall M.D. 08/12/2023 11:[address] 08/12/23 16:14 CT chest diagnostic wo con CT DOSE: 484.49 mGy.cm CLINICAL HISTORY: 82 years-old Male with hypoxia. Acute hypoxia with cough TECHNIQUE: Multiaxial CT images of the chest were performed without contrast. A dose lowering technique was utilized adhering to the principles of ALARA. COMPARISON: Radiograph of same day FINDINGS: Unremarkable thyroid. Subcentimeter supraclavicular lymph nodes measure up to 9 mm on the right. There are hyperdense and partially calcified mediastinal and hilar lymph nodes measuring up to approximately 10 mm. Mild inflammatory stranding surrounds these lymph nodes. Heart is mildly enlarged. Extensive coronary artery calcifications. Atherosclerosis of the aorta. Dilation of the pulmonary artery or the main pulmonary artery measuring 4.4 cm. Bilateral calcified pleural plaques. Trace right pleural effusion. No pneumothorax. Subpleural reticulation noted bilaterally. Patchy right greater than left bibasilar groundglass and consolidative opacities with additional right upper and right middle lobe consolidation. Mild intralobular septal thickening. Cylindrical bibasilar prominent bronchiectasis. Cholecystectomy. Hepatic steatosis. No acute fracture. Partially imaged spinal stimulator leads. IMPRESSION: 1. Multifocal pneumonia, greatest within the right lung. 2. Mild mediastinal and hilar lymphadenopathy with subcentimeter supraclavicular lymph nodes. Attention on follow-up recommended. 3. Evidence of asbestos-related pleural disease. 4. Trace right pleural effusion. ACT 112: Negative or not required by law. Electronically signed by: Marck Davis M.D. 08/12/2023 6:17 PM Discharge Instructions Given to Patient (Per Discharging Provider) Mr. Levy, You are admitted as you had a pneumonia after daniel a parainfluenza viral illness. We treated you with antibiotics and your symptoms improved dramatically. You were seen by the gas analyst and he is recommending that you be treated for a total of 7 days, so we are discharging you with 5 more days of the antibiotic cefdinir and doxycycline. We also determined that you need to use oxygen while at rest and with ambulation. Please use as tolerated. We also ask that you keep close followup with your gas analyst as it appears that your lung disease is worsening. The gas analyst is requesting that you repeat the chest CT in 6-8 weeks. Please take the Mucinex to help your symptoms at home. Please keep close follow up with your primary care provider. It was a pleasure taking care of you while you were here. Total Time Total Time Spent Total Time Spent (In Minutes): > 30 minutes
--- NOTE | 2023-08-14 11:05 | Pulmonology Progress Note ---
Date of Service August 14, 2023 Assessment & Plan (1) Multifocal pneumonia: (2) Interstitial lung disease: (3) Sepsis: (4) Parainfluenza: (5) Acute hypoxic respiratory failure: Plan CT chest 08/12/2023 personally reviewed: Increase reticular markings in the periphery of the upper lobes, traction bronchiectasis of the right middle lobe as well as bilateral lower lobes Early honeycombing on the periphery of the right middle lobe as well as right lower lobe Dense consolidative process along with groundglass opacities appreciated in bilateral lower lobes as well as right upper lobe Pleural calcification with possible rounded atelectasis of the right lower lobe supradiaphragmatic No significant mediastinal lymphadenopathy This CT was compared to the one which CT abdomen pelvis which was done 07/27/2021, there is worsening of the reticular markings as well as traction bronchiectasis of the lower lobes -- Acute hypoxic respiratory failure Multifactorial Parainfluenza positive, rest of the bio fire negative Procalcitonin 17.58 Nasal MRSA negative --History of ILD Seems to be getting worse compared to CT abdomen pelvis which was done 07/27/2021 Never been treated for it Follows up with pulmonary at [facility] -- History of celiac disease with dermatitis herpetiformis On dapsone Plan: Complete the course of antibiotics for 7 days Patient may need oxygen on discharge on exertion Follow-up sputum culture Continue with Mucinex and flutter valve Patient will need CT chest in approximately 6-8 weeks to follow-up on the infiltrates. Please note the above document was generated using voice recognition software. It may contain grammatical, syntax or spelling errors.Any formal questions or concerns about the content, text or information contained within the body of this dictation should be directly addressed to the provider for clarification. Admission and Anticipated Discharge Date Admission Date: August 12, 2023 Subjective Patient seen and examined at bedside. No acute distress, no adverse events overnight He was saturating 88-89% on room air at the time of examination with heart rate 72 He said he was feeling better compared to when he came to the hospital Is coughing and bringing up clear phlegm. Denies any hemoptysis No nausea vomiting Fair appetite He was asking to go home today. Review of Systems 2 Review of Systems: All systems reviewed & are unremarkable except as noted in Subjective Physical Exam 2 Physical Exam: Constitutional: No acute distress HEENT: EOMI, PERRLA Respiratory system: Decreased air entry bilaterally, no wheeze, no rhonchi, p ositive crackles bilateral lower lobes CVS: S1-S2 positive, positive 2 out of 6 systolic murmur appreciated best at aorta Abdomen: Soft, nontender, nondistended, positive bowel sounds x4 Extremities: +2 pulses bilaterally radialis/ dorsalis pedis, no cyanosis, no edema Neuro: Awake alert oriented x3 Psych: Normal mood and affect G/U: No Zaidi Skin: no rashes, warm and dry Lymphatic: no cervical or axillary lymphadenopathy Results & Data Results & Data Vital Signs (Past 12 Hours) Vital Signs Temp Pulse Pulse Pulse Pulse Pulse Pulse 08/14/23 10:05 85 81 84 62 08/14/23 09:32 60 08/14/23 08:11 36.7 C 61 08/14/23 07:33 08/14/23 07:32 61 08/14/23 03:07 36.6 C 72 08/14/23 00:00 72 Resp Resp Resp Resp Resp BP Pulse Ox 08/14/23 10:05 18 18 17 16 08/14/23 09:32 08/14/23 08:11 21 129/70 98 08/14/23 07:33 08/14/23 07:32 20 94 08/14/23 03:07 20 109/53 L 92 08/14/23 00:00 Pulse Ox Pulse Ox Pulse Ox Pulse Ox O2 Del Method O2 Flow Rate O2 Flow Rate 08/14/23 10:05 87 L 90 85 L 93 2 08/14/23 09:32 08/14/23 08:11 Nasal Cannula 2 08/14/23 07:33 Nasal Cannula 2 08/14/23 07:32 Nasal Cannula 2 08/14/23 03:07 Nasal Cannula 2 08/14/23 00:00 O2 Flow Rate 08/14/23 10:05 3 08/14/23 09:32 08/14/23 08:11 08/14/23 07:33 08/14/23 07:32 08/14/23 03:07 08/14/23 00:00 Laboratory Results 08/14/23 05:59 08/14/23 05:59 PG Care Time/CCT Total # of Minutes Spent Total Time Spent with Patient: Total time spent is greater than 50% in coordination of care (as documented) at patient's floor/unit and/or counseling patient: Coding Level of Care Code 65028 SUB INP/OBS CARE Diagnoses Multifocal pneumonia J18.9 Interstitial lung disease J84.9 Sepsis A41.9 Parainfluenza B34.8 Acute hypoxic respiratory failure J96.01
== END 2023-08-14 15:38 | disposition home or self-care (01) | DRG 871 ==
LOC: ED 09:56 → EDINP 13:58 → 2S 16:15

== ENCOUNTER 2024-01-08 13:19 | Observation (INO) ==
--- NOTE | 2024-01-08 13:57 | Emergency Department Note ---
History of Present Illness General Chief complaint: Chest Pain Stated complaint: Chest Pain Time Seen by Provider: 01/08/24 13:36 History of Present Illness 83-year-old male presents emergency department with a 1 day history of intermittent substernal chest pressure that radiates into his neck and jaw. Patient states that he was working on electrical outlets this morning and he states that he suddenly had chest pain he took 325 of aspirin as well as 2 nitroglycerin is currently pain-free. Patient has had intermittent worsening symptoms over the past 2 months. Patient did receive a cardiac catheterization 2013 and was not stented at that time. Patient currently is pain-free. Patient denies any shortness of breath nausea. There are no other mitigating or alleviating factors Home Medications Medication Instructions Recorded Confirmed Type gabapentin 600 mg tablet See Rx Instructions .Route .COMPLEX 08/06/19 01/08/24 History pantoprazole 40 mg tablet,delayed 40 mg PO DAILY 08/06/19 01/08/24 History release finasteride 5 mg tablet 5 mg PO DAILY 09/04/20 01/08/24 History hydrocodone 10 mg-acetaminophen 1 tab PO Q6H PRN Severe Pain 12/08/20 01/08/24 History 325 mg tablet (Scale Score 7-10) acetaminophen 325 mg capsule 325 - 650 mg PO QID PRN Pain 03/16/21 01/08/24 History (Tylenol) dapsone 25 mg tablet 50 mg PO DAILY PRN Itching 03/16/21 01/08/24 History lisinopril 5 mg tablet 5 mg PO DAILY #90 tabs 05/29/21 01/08/24 Rx aspirin 81 mg tablet,delayed 81 mg PO DAILY 07/27/21 01/08/24 History release cyanocobalamin (vitamin B-12) 100 100 mcg PO DAILY 07/27/21 01/08/24 History mcg tablet (Vitamin B-12) diclofenac sodium 1 % topical gel 4 g topical BID PRN Pain 07/27/21 01/08/24 History red yeast rice 600 mg tablet 600 mg PO BID 07/27/21 01/08/24 History tizanidine 2 mg tablet 2 mg PO BID PRN MUSCLE SPASMS 07/27/21 01/08/24 History ezetimibe 10 mg tablet (Zetia) 10 mg PO DAILY #90 tabs 08/22/21 01/08/24 Rx metformin 500 mg tablet,extended 500 mg PO BID 08/12/23 01/08/24 History release 24 hr isosorbide mononitrate 30 mg 30 mg PO DAILY #30 tabs 10/22/23 01/08/24 Rx tablet,extended release 24 hr nitroglycerin 0.4 mg sublingual 0.4 mg sublingual Q5M PRN chest 10/22/23 01/08/24 Rx tablet pain #25 tabs albuterol sulfate 2.5 mg/3 mL 2.5 mg inhalation DIRECTED PRN 01/08/24 01/08/24 History (0.083 %) solution for nebulization Shortness Of Breath Or Wheezing albuterol sulfate 90 mcg/actuation 2 puff inhalation QID PRN 01/08/24 01/08/24 History aerosol inhaler Shortness Of Breath Or Wheezing aspirin 325 mg tablet 325 mg PO .TODAY 01/08/24 01/08/24 History ondansetron HCl 4 mg tablet 4 mg PO Q6 PRN naysea 01/08/24 01/08/24 History sennosides 8.6 mg tablet 8.6 mg PO HS 01/08/24 01/08/24 History sildenafil 50 mg tablet 25 - 50 mg PO DIRECTED PRN 01/08/24 01/08/24 History .erectile difunction Allergies Allergy/AdvReac Type Severity Reaction Status Date / Time iodine Allergy Intermediate ITCHY. Verified 01/08/24 16:17 SAME REACTION GLUTEN Penicillins Allergy Intermediate RASH Verified 01/08/24 16:17 gluten Allergy Mild rash Verified 01/08/24 16:17 tramadol Allergy Unknown unknown Verified 01/08/24 16:17 codeine AdvReac Mild itching Verified 01/08/24 16:17 Past Med/Surg History Medical History Sacroiliitis Barretts esophagus Chronic back pain Spinal cord stimulator status Esophageal reflux Aortic valve sclerosis Hypertension Dyslipidemia CAD (coronary artery disease) NSTEMI on 06/20/11 (peak troponin of 2.7) Cardiac catheterization 06/21/11: Multivessel disease. mid LAD stenosis 40% followed by a long 70% stenosis at the bifurcation of the third diagonal vessel. The third diagonal vessel also had an ostial 70% lesion. The distal LAD towards the apex was completely occluded but filled from left to left and [id number] collaterals. A large septal branch also had a 60% proximal stenosis. The distal circumflex had a 90% long stenosis; proximally there was a 30% stenosis. The RCA had a proximal 50-60% stenosis. This was the dominant vessel. Medical management was instituted. Spinal stenosis Surgical History S/P insertion of spinal cord stimulator Dr. Arredondo - 2017 H/O lumbar discectomy L2-3, L3-4 w/ artificial discs by Dr. Huerta 11/2015 H/O exploratory laparotomy , lysis of adhesions for SBO H/O hernia repair History of hemilaminectomy S/P shoulder surgery S/P knee surgery S/P cholecystectomy S/P appendectomy Family History Mother Coronary heart disease Social History Smoking Status: Never smoker Second Hand Exposure: No; Do You Dip or Chew Tobacco: No; Hx Alcohol Use: No Hx Substance Use: No Preferred Language: Sami Communication Ability: Effective Visual Impairment: No Limitations Hearing Ability: Hard of Hearing Firer Kiln Required: No Beliefs That Will Affect Care: None marital status: / Current Living Situation: Alone current occupational status: retired Feels Safe at Home: Yes Assistive Devices: None Review of Systems A total of 10 systems reviewed and were otherwise negative Cardiovascular: + chest pain Physical Exam Vital Signs Vital Signs - 24 hr 01/08/24 13:29 01/08/24 13:29 01/08/24 13:29 Temperature 36.8 C Temperature Source Oral Pulse Rate 67 Pulse Rhythm Regular Pulse Strength Normal Respiratory Rate 17 17 Respiratory Effort / Characteristics Non-Labored Spontaneous Non-Labored Spontaneous Respiratory Depth Normal Normal Respiratory Pattern Regular Regular Blood Pressure 140/71 Blood Pressure Mean 94 Blood Pressure Position Semi-fowlers Pulse Oximetry 96 96 Oxygen Delivery Method Room Air Room Air Sepsis Recent Fever Within 48 Hours No Sepsis New/Unexplained Change in Mental Status N/A Sepsis Action Taken by Nursing No Action Required 01/08/24 14:01 01/08/24 14:37 Temperature Temperature Source Pulse Rate 68 65 Pulse Rhythm Regular Pulse Strength Respiratory Rate Respiratory Effort / Characteristics Respiratory Depth Respiratory Pattern Blood Pressure Blood Pressure Mean Blood Pressure Position Pulse Oximetry 96 Oxygen Delivery Method Room Air Sepsis Recent Fever Within 48 Hours Sepsis New/Unexplained Change in Mental Status Sepsis Action Taken by Nursing GENERAL: Patient is awake alert in no acute distress patient is resting comfortably and showing no signs of anxiety EYES: The conjunctivae are clear. The pupils are round and reactive. EARS, NOSE, MOUTH AND THROAT: The nose is without any evidence of any deformity. Mucous membranes are moist. Tongue is midline. NECK: The neck is nontender and supple. RESPIRATORY: Normal respiratory effort is noted there is no evidence of wheezing rhonchi or rales CARDIOVASCULAR: Regular rate and rhythm noted there no murmurs rubs or gallops normal S1 normal S2. GASTROINTESTINAL: The abdomen is soft. Abdomen is nontender. PELVIS: The Pelvis is stable. No tenderness to palpation is noted. BACK: No midline tenderness or or step-off noted range of motion in flexion extension as well as rotation no signs of muscle spasm noted MUSCULOSKELETAL/EXTREMITIES: There is no evidence of gross deformity full range of motion is noted in the hips and shoulders. SKIN: There is no obvious evidence of any rash. There are no petechiae, pallor or cyanosis noted. NEUROLOGIC: Patient is awake alert and oriented x3 strength is symmetric Course Reevaluation(s) Reevaluation #1: Resting in no distress on repeat examination. Time: 15:04 Consultations Consultation #1: Case was discussed with the [facility] hospitalist for admission Time: 15:04 Administered Medications Hydrocodone Bitart/Acetaminophen (Hydrocodone/Acetaminophen 10/325 Tab) 1 tab PO NOW STA Stop: 01/08/24 16:01 Last Admin: 01/08/24 16:23 Dose: 1 tab Documented By: LAUREN Gabapentin (Gabapentin 300 Mg Cap) 900 mg PO ONE ONE Stop: 01/08/24 16:06 Last Admin: 01/08/24 16:23 Dose: 900 mg Documented By: LAUREN Insulin Aspart (Insulin Aspart Per Unit Charge) 0 units SC ACHS [facility] Stop: 02/07/24 16:29 Last Admin: 01/08/24 16:25 Dose: Not Given Documented By: LAUREN Medical Decision Making Medical Records Attestation: I reviewed the patient's medical records. Home Medications Current Medication List: was personally reviewed by me Laboratory Data Attestation: I reviewed the patient's lab results. Leukocytosis 01/08/24 13:37 01/08/24 13:37 Lab Results 01/08/24 Range/Units 13:37 WBC 12.83 H (4.8-10.8) K/ul RBC 4.10 L (4.70-6.10) M/uL Hgb 12.1 L (14.0-18.0) g/dl Hct 37.1 L (42.0-52.0) % MCV 90.5 (80.0-100.0) fL MCH 29.5 (25.0-34.0) pg MCHC 32.6 (32.0-36.0) g/dL RDW Std Deviation 42.4 (36.4-46.3) fL RDW Coeff of Geraldo 12.8 (11.5-14.5) % Plt Count 375 (130-400) K/uL MPV 9.5 (9.4-12.4) fL Immature Gran % (Auto) 0.4 % Neut % (Auto) 84.8 % Lymph % (Auto) 7.9 % Potter % (Auto) 6.8 % Eos % (Auto) 0.0 % Baso % (Auto) 0.1 % Neut # (Auto) 10.89 H (1.40-6.50) K/uL Lymph # (Auto) 1.01 L (1.20-3.40) K/uL Potter # (Auto) 0.87 H (0.11-0.59) K/uL Eos # (Auto) 0.00 (0.00-0.50) K/uL Baso # (Auto) 0.01 (0.00-0.20) K/uL Immature Gran # (Auto) 0.05 (0.01-0.20) K/uL PT 10.8 (9.0-12.0) Seconds INR 1.0 (0.9-1.1) APTT 26 (21-31) Seconds PTT Ratio 0.9 Sodium 138 (136-145) mmol/L Potassium 4.4 (3.5-5.1) mmol/L Chloride 106 (98-107) mmol/L Carbon Dioxide 25 (21-32) mmol/L Anion Gap 7 (3-11) BUN 32 H (6-23) mg/dl Creatinine 1.05 (0.6-1.4) mg/dl Est Cr Clr Drug Dosing 55.8 ml/min Est GFR ( Amer) 75.2 ml/min Est GFR (Non-Af Amer) 64.9 ml/min BUN/Creatinine Ratio 30.5 H (10-20) Glucose 186 H (70-99(Fasting)) mg/dl Calcium 9.2 (8.6-10.3) mg/dl Total Bilirubin 0.4 (0.2-1.0) mg/dl AST 13 (13-39) U/L ALT 8 (7-52) U/L Alkaline Phosphatase 75 (34-104) U/L Troponin I High Sens 20.9 H (0-20) pg/ml Total Protein 7.2 (6.0-8.3) gm/dl Albumin 4.2 (3.4-5.0) gm/dl Globulin 3.0 (2.5-4.0) gm/dl Albumin/Globulin Ratio 1.4 (0.9-2) Lipase 6 L (11-82) U/L Imaging Data Attestation: I personally reviewed and interpreted this imaging study as follows: My Impression: Chest x-ray interpreted by me negative for infiltrate normal mediastinum no pneumothorax Radiologist's Impression: Chest X-Ray 01/08/24 13:36 XR chest 1V portable HISTORY: Chest pain, nonspecific COMPARISON: Chest CT 08/12/2023. FINDINGS: No pneumothorax. No pleural effusions. Spinal stimulator leads are again noted within the lower thoracic spine. Prior cholecystectomy. Mild diffuse interstitial thickening. This is likely chronic. No evidence for pulmonary edema. There are low lung volumes. The cardiac silhouette remains borderline enlarged. No acute fractures. There is a lobular right midlung zone density which is new compared to the prior study. IMPRESSION: 1. This is new lobular right midlung zone density. Follow-up chest CT recommended to exclude the possibility of a pulmonary lesion. 2. Low lung volumes with chronic interstitial thickening again noted. ACT 112: Negative or not required by law. Electronically signed by: Carlos Eduardo Bañuelos M.D. 01/08/2024 2:27 PM ECG Data Attestation: I personally reviewed and interpreted this ECG as follows: Additional Comments: EKG interpreted by me sinus rhythm rate of 65, normal intervals normal axis, no obvious ST segment elevation or depression MDM Narrative Medical decision making differential diagnosis includes angina, unstable angina, acute coronary syndrome, acute NE, reflux, esophageal spasm, musculoskeletal chest pain Plan is to check labs, EKG, chest x-ray HEART SCORE = 5 Will admit for [facility] Case discussed with Mario Impression & Plan Chest pain Discharge Plan Visit Data Chief Complaint: Chest Pain Stated Complaint: Chest Pain ED Provider: Paco Naqvi Discharge Problem: Chest pain Patient Disposition: Admitted As Inpatient Forms Stand Alone Forms: [facility] Prescriptions Prescriptions: No Action hydrocodone-acetaminophen 10-325 mg tablet 1 tab PO Q6H PRN (Reason: Severe Pain (Scale Score 7-10)) lisinopril 5 mg tablet 5 mg PO DAILY Qty: 90 3RF ezetimibe [Zetia] 10 mg tablet 10 mg PO DAILY Qty: 90 3RF gabapentin 600 mg tablet See Rx Instructions .ROUTE .COMPLEX Rx Instructions: 600 mg in AM, 900mg at noon, 600mg in PM pantoprazole 40 mg tablet,delayed release (DR/EC) 40 mg PO DAILY dapsone 25 mg tablet 50 mg PO DAILY PRN (Reason: Itching) acetaminophen [Tylenol] 325 mg capsule 325 - 650 mg PO QID PRN (Reason: Pain) finasteride 5 mg tablet 5 mg PO DAILY nitroglycerin 0.4 mg tablet, sublingual 0.4 mg SL Q5M PRN (Reason: chest pain) Qty: 25 5RF isosorbide mononitrate 30 mg tablet extended release 24 hr 30 mg PO DAILY Qty: 30 5RF cyanocobalamin (vitamin B-12) [Vitamin B-12] 100 mcg Tablet 100 mcg PO DAILY aspirin 81 mg Tablet,Delayed Release (Dr/Ec) 81 mg PO DAILY diclofenac sodium 1 % Gel 4 g TOPICAL BID PRN (Reason: Pain) tizanidine 2 mg Tablet 2 mg PO BID PRN (Reason: MUSCLE SPASMS) red yeast rice 600 mg Tablet 600 mg PO BID metformin 500 mg tablet extended release 24 hr 500 mg PO BID Rx Instructions: Take with meals sennosides 8.6 mg Tablet 8.6 mg PO HS albuterol sulfate 2.5 mg /3 mL (0.083 %) Solution For Nebulization 2.5 mg INHALATION DIRECTED PRN (Reason: Shortness Of Breath Or Wheezing) sildenafil 50 mg Tablet 25 - 50 mg PO DIRECTED PRN (Reason: .erectile difunction) Rx Instructions: administer 30 minutes to 4 hours before activity aspirin 325 mg Tablet 325 mg PO .TODAY ondansetron HCl 4 mg tablet 4 mg PO Q6 PRN (Reason: naysea) albuterol sulfate 90 mcg/actuation HFA aerosol inhaler 2 puff INHALATION QID PRN (Reason: Shortness Of Breath Or Wheezing) Referrals Referrals: Manav De La Vega DO [Primary Care Provider] -
[2024-01-08 14:00] LABS: Basophils # (auto) 0.01 K/uL (0.00-0.20); Basophils % (auto) 0.1 %; Hematocrit (blood only) 37.1 % (42.0-52.0); Hemoglobin 12.1 g/dl (14.0-18.0); Immature Granulocytes # (auto) 0.05 K/uL (0.01-0.20); Immature Granulocytes % (auto) 0.4 %; Lymphocytes # (auto) 1.01 K/uL (1.20-3.40); Lymphocytes % (auto) 7.9 %; Mean Corpuscular Hemoglobin 29.5 pg (25.0-34.0); Mean Corpuscular Hgb Conc 32.6 g/dL (32.0-36.0); Mean Corpuscular Volume 90.5 fL (80.0-100.0); Mean Platelet Volume 9.5 fL (9.4-12.4); Monocytes # (auto) 0.87 K/uL (0.11-0.59); Monocytes % (auto) 6.8 %; Neutrophils # (auto) 10.89 K/uL (1.40-6.50); Neutrophils % (auto) 84.8 %; Platelet Count 375 K/uL (130-400); RDW Coefficient of Variation 12.8 % (11.5-14.5); RDW Standard Deviation 42.4 fL (36.4-46.3); White Blood Count 12.83 K/ul (4.8-10.8)
[2024-01-08 14:14] LABS: Albumin Globulin Ratio 1.4 (0.9-2); Albumin Level 4.2 gm/dl (3.4-5.0); BUN Creatinine Ratio 30.5 (10-20); Bilirubin,Total 0.4 mg/dl (0.2-1.0); Calcium 9.2 mg/dl (8.6-10.3); Creatinine Clr Calc Pharmacy 55.8 ml/min; Est GFR (African American) 75.2 ml/min; Est GFR (Non-African American) 64.9 ml/min; Potassium 4.4 mmol/L (3.5-5.1); Total Protein 7.2 gm/dl (6.0-8.3)
[2024-01-08 14:21] LABS: Troponin I High Sensitivity 20.9 pg/ml (0-20)
--- NOTE | 2024-01-08 14:29 | XRay Report ---
XR chest 1V portable HISTORY: Chest pain, nonspecific COMPARISON: Chest CT 08/12/2023. FINDINGS: No pneumothorax. No pleural effusions. Spinal stimulator leads are again noted within the l ower thoracic spine. Prior cholecystectomy. Mild diffuse interstitial thickening. 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 No evidence for pulmonary edema. There are low lung volumes. The cardiac silhouette remains bord shankar enlarged. No acute fractures. There is a lobular right midlung zone density which is new ayesha red to the prior study. IMPRESSION: 1. This is new lobular right midlung zone density. Follow-up chest CT recommended to exclude the poss ibility of a pulmonary lesion. 2. Low lung volumes with chronic interstitial thickening again noted. ACT 112: Negative or not required by law. Electronically signed by: Carlos Eduardo Bañuelos M.D. 01/08/2024 2:27 PM
[2024-01-08 14:33] LABS: Partial Thromboplastin Ratio 0.9; Partial Thromboplastin Time 26 Seconds (21-31); Prothrombin Time 10.8 Seconds (9.0-12.0)
--- NOTE | 2024-01-08 15:10 | History & Physical Report ---
Date of Service January 08, 2024 Assessment & Plan (1) Chest pain: (2) CAD (coronary artery disease): (3) Interstitial lung disease: (4) Hypertension: (5) Dyslipidemia: Plan This is an 83yo M with a PMH of CAD, dyslipidemia, HTN, DM II, ILD, ACE, BPH, chronic pain syndrome and other medical problems listed below who presents with CP starting earlier today. Exertional chest pain CAD H/o CAD with progressively more severe exertional CP over the past few months Required 2 ntg earlier today to bring to resolution, currently chest pain free Follows with [facility] cards and per recent note had declined pursuit of cardiac cath, is now requesting EKG with sinus rhythm and PACs, no acute ST changes Initial HS trop 20.[address] Kirby, who requests patient be kept NPO at midnight except meds, their service will see Previous echo from 08/07 with normal LV size and wall motion. EF >70%. Moderate LVH. No significant AI or Continue aspirin, isosorbide, lisinopril, Zetia Has not tolerated metoprolol succinate due to hypotension and fatigue. Has not tolerated statin therapy Trend troponin, fasting lipids and repeat a1c in AM ILD At baseline, saturating at 96% on room air. Follows with Pulm CXR today with a new lobular right midlung zone density. Follow-up chest CT recommended to exclude the possibility of a pulmonary lesion - will need f/u imaging DM II Last a1c 7.0 in Jul 2023, repeat in AM Hold home agents SSI while in-patient BSG AC HS or Q6H while NPO Chronic pain syndrome H/o radiculopathy, follows with [facility], pain mgmt Continue home hydrocodone-acetaminophen, gabapentin, PRN tizanidine Does not feel duloxetine has been helping with pain and self-discontinued DVT Ppx: SQ heparin Code status: FULL PCP: Ceferino Dispo: Obs PCU Patient seen in collaboration with Dr. Gresham. Please see addendum. I spent a total of 75 minutes coordinating, documenting, and providing care for this patient excluding time spent in the performance of separately billed services. History of Present Illness Chief Complaint: CP Primary Care Provider: Manav De La Vega, DO This is an 83yo M with a PMH of CAD, h/o NSTEMI in 2010 that was medically managed, dyslipidemia, HTN, ILD, ACE, BPH, chronic pain syndrome and other medical problems listed below who presents with CP starting earlier today. Has been having worsening CP with exertion over the past few months that resolves with rest. Has discussed cardiac cath in outpatient setting with [facility] cards in the past but has declined previously. Was working outside on his property the past few days with landscaping and working on adding electrical to his new barn. When moving around, developed more severe substernal chest pain with radiation up neck extending up to his ears with associated diaphoresis and SOB. Was more severe than previous episodes over the past two months and required rest, 2 ntg and aspirin for pain to fully resolve. Came to ED for further evaluation. Chest pain has not recurred since arrival. No F/C, headache, SOB, N/V, abd pain, dysuria, diarrhea. Uses chronic narcotics for back pain and does home enemas to keep bowels movement, which he did this morning prior to arrival. Is requesting cardiac catheterization at this time. Allergies Allergy/AdvReac Type Severity Reaction Status Date / Time iodine Allergy Intermediate ITCHY. Verified 01/08/24 16:17 SAME REACTION GLUTEN Penicillins Allergy Intermediate RASH Verified 01/08/24 16:17 gluten Allergy Mild rash Verified 01/08/24 16:17 tramadol Allergy Unknown unknown Verified 01/08/24 16:17 codeine AdvReac Mild itching Verified 01/08/24 16:17 Home Medications Medication Instructions Recorded Confirmed Type gabapentin 600 mg tablet See Rx Instructions .Route .COMPLEX 08/06/19 01/08/24 History pantoprazole 40 mg tablet,delayed 40 mg PO DAILY 08/06/19 01/08/24 History release finasteride 5 mg tablet 5 mg PO DAILY 09/04/20 01/08/24 History hydrocodone 10 mg-acetaminophen 1 tab PO Q6H PRN Severe Pain 12/08/20 01/08/24 History 325 mg tablet (Scale Score 7-10) acetaminophen 325 mg capsule 325 - 650 mg PO QID PRN Pain 03/16/21 01/08/24 History (Tylenol) dapsone 25 mg tablet 50 mg PO DAILY PRN Itching 03/16/21 01/08/24 History lisinopril 5 mg tablet 5 mg PO DAILY #90 tabs 05/29/21 01/08/24 Rx aspirin 81 mg tablet,delayed 81 mg PO DAILY 07/27/21 01/08/24 History release cyanocobalamin (vitamin B-12) 100 100 mcg PO DAILY 07/27/21 01/08/24 History mcg tablet (Vitamin B-12) diclofenac sodium 1 % topical gel 4 g topical BID PRN Pain 07/27/21 01/08/24 History red yeast rice 600 mg tablet 600 mg PO BID 07/27/21 01/08/24 History tizanidine 2 mg tablet 2 mg PO BID PRN MUSCLE SPASMS 07/27/21 01/08/24 History ezetimibe 10 mg tablet (Zetia) 10 mg PO DAILY #90 tabs 08/22/21 01/08/24 Rx metformin 500 mg tablet,extended 500 mg PO BID 08/12/23 01/08/24 History release 24 hr isosorbide mononitrate 30 mg 30 mg PO DAILY #30 tabs 10/22/23 01/08/24 Rx tablet,extended release 24 hr nitroglycerin 0.4 mg sublingual 0.4 mg sublingual Q5M PRN chest 10/22/23 01/08/24 Rx tablet pain #25 tabs albuterol sulfate 2.5 mg/3 mL 2.5 mg inhalation DIRECTED PRN 01/08/24 01/08/24 History (0.083 %) solution for nebulization Shortness Of Breath Or Wheezing albuterol sulfate 90 mcg/actuation 2 puff inhalation QID PRN 01/08/24 01/08/24 History aerosol inhaler Shortness Of Breath Or Wheezing aspirin 325 mg tablet 325 mg PO .TODAY 01/08/24 01/08/24 History ondansetron HCl 4 mg tablet 4 mg PO Q6 PRN naysea 01/08/24 01/08/24 History sennosides 8.6 mg tablet 8.6 mg PO HS 01/08/24 01/08/24 History sildenafil 50 mg tablet 25 - 50 mg PO DIRECTED PRN 01/08/24 01/08/24 History .erectile difunction Past Med/Surg History Medical History Sacroiliitis Barretts esophagus Chronic back pain Spinal cord stimulator status Esophageal reflux Aortic valve sclerosis Hypertension Dyslipidemia CAD (coronary artery disease) NSTEMI on 06/20/11 (peak troponin of 2.7) Cardiac catheterization 06/21/11: Multivessel disease. mid LAD stenosis 40% followed by a long 70% stenosis at the bifurcation of the third diagonal vessel. The third diagonal vessel also had an ostial 70% lesion. The distal LAD towards the apex was completely occluded but filled from left to left and [id number] collaterals. A large septal branch also had a 60% proximal stenosis. The distal circumflex had a 90% long stenosis; proximally there was a 30% stenosis. The RCA had a proximal 50-60% stenosis. This was the dominant vessel. Medical management was instituted. Spinal stenosis Surgical History S/P insertion of spinal cord stimulator Dr. Arredondo - 2017 H/O lumbar discectomy L2-3, L3-4 w/ artificial discs by Dr. 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 Physical Exam Physical Exam: General Appearance: WD/WN, vitals as above, NAD, sitting up in bed, pleasant, conversing easily, flushed appearance Head: normocephalic, atraumatic Eyes: normal inspection, PERRL, conjunctivae normal, anicteric sclerae ENT: external ear and nose normal, oropharynx normal Neck: normal visual inspection, trachea midline, no thyromegaly Respiratory: normal respiratory effort, lungs clear to auscultation, no wheeze, rales, rhonchi. No accessory muscle use Cardiovascular: regular rate, rhythm, +systolic murmur, normal peripheral pulses, no BLE edema. Vessels: no JVD Chest: normal inspection of chest Abdomen/GI: normal bowel sounds, soft, nontender, no hepatosplenomegaly Extremities/Musculoskeletal: no cyanosis or clubbing, extremities motor strength 5/5 Neurologic: PERRL, EOMI, accommodation nl, no face palsy, no dysarthria, CN's II-XI intact bilaterally and moves all extremities Psychiatric: A+Ox3, euthymic affect Skin: no rashes, normal color, warm/dry Results & Data Results & Data Vital Signs (Past 12 Hours) Vital Signs Temp Pulse Resp BP Pulse Ox O2 Del Method 01/08/24 14:37 65 96 Room Air 01/08/24 14:01 68 01/08/24 13:29 17 96 01/08/24 13:29 Room Air 01/08/24 13:29 36.8 C 67 17 140/71 96 Room Air Laboratory Results Short CBC 01/08/24 Range/Units 13:37 WBC 12.83 H (4.8-10.8) K/ul Hgb 12.1 L (14.0-18.0) g/dl Hct 37.1 L (42.0-52.0) % Plt Count 375 (130-400) K/uL BMP 01/08/24 13:37 Sodium 138 Potassium 4.4 Chloride 106 Carbon Dioxide 25 BUN 32 H Creatinine 1.05 Glucose 186 H Calcium 9.2 Liver Function 01/08/24 Range/Units 13:37 Total Bilirubin 0.4 (0.2-1.0) mg/dl AST 13 (13-39) U/L ALT 8 (7-52) U/L Alkaline Phosphatase 75 (34-104) U/L Albumin 4.2 (3.4-5.0) gm/dl Diagnostic Findings Chest X-Ray 01/08/24 13:36 XR chest 1V portable HISTORY: Chest pain, nonspecific COMPARISON: Chest CT 08/12/2023. FINDINGS: No pneumothorax. No pleural effusions. Spinal stimulator leads are again noted within the lower thoracic spine. Prior cholecystectomy. Mild diffuse interstitial thickening. This is likely chronic. No evidence for pulmonary edema. There are low lung volumes. The cardiac silhouette remains borderline enlarged. No acute fractures. There is a lobular right midlung zone density which is new compared to the prior study. IMPRESSION: 1. This is new lobular right midlung zone density. Follow-up chest CT recommended to exclude the possibility of a pulmonary lesion. 2. Low lung volumes with chronic interstitial thickening again noted. ACT 112: Negative or not required by law. Electronically signed by: Carlos Eduardo Bañuelos M.D. 01/08/2024 2:27 PM ECG Additional Comments: EKG reviewed with sinus rhythm with Premature atrial complexes Supervising Physician Co-Signing Physician Notes Pt was seen and examined by myself, Kiarra Gresham MD on the day of service. Care was coordinated with Claire Thomson PA-C. Pt states that he has been having progressive chest pain with exertion, follows with [facility] cardiology and needs a cardiac cath tomorrow. States that his granddaughter will be visiting this weekend and would like to have it done by then. States he had the chest pain while working yesterday and was relieved by nitro but it returned so he came in for further evaluation. Denied chest pain at the time of exam or SOB. RRR, breath sounds clear, abd nontender [facility] cardiology consulted and aware, pt made NPO after midnight Trend trops, echo, telemetry monitoring, continue home meds at this time. Otherwise as above. I spent a total [id number] coordinating, documenting, and providing care for this patient excluding time spent in the performance of separately billed services
[2024-01-08] MEDS ORDERED: DEXTROSE 50% 50 ML SYRINGE IV PRN (16:02)
[2024-01-08] MEDS ORDERED: GLUCOSE 10 TAB/TUBE PO PRN (16:02)
[2024-01-08] MEDS ORDERED: GLUCOSE 40% GEL 15 GM TUBE PO PRN (16:02)
[2024-01-08] MEDS ORDERED: CARBOHYDRATES FOR HYPOGLYCEMIA PO PRN (16:02)
[2024-01-08] MEDS ORDERED: GLUCAGON FOR INJ 1 MG VIAL SQ PRN (16:02)
--- NOTE | 2024-01-08 16:02 | Electrocardiogram Report ---
Test Reason : Blood Pressure : / mmHG Vent. Rate : 065 BPM Atrial Rate : 065 BPM P-R Int : 174 ms QRS Dur : 084 ms QT Int : 386 ms P-R-T Axes : 052 -08 -03 degrees QTc Int : 401 ms Sinus rhythm with Premature atrial complexes Otherwise normal ECG When compared with ECG of 12-AUG-2023 10:03, Vent. rate has decreased BY 45 BPM Confirmed by Angel Kirby ([id number]) on 01/08/2024 4:01:50 PM Referred By: Confirmed By:Angel Kirby
[2024-01-08] MEDS: GABAPENTIN 300 MG CAP PO ONE (16:23)
[2024-01-08] MEDS: HYDROcodone/ACETAMINOPHEN 10/325 TAB PO STA (16:23)
[2024-01-08] MEDS: INSULIN ASPART PER UNIT CHARGE SC SCH (16:25)
[2024-01-08] MEDS ORDERED: ALBUTEROL 0.083% NEBU SOLN 3 ML VIAL INH PRN (17:21)
[2024-01-08] MEDS ORDERED: DICLOFENAC SOD 1% GEL 100 GM TUBE EXT PRN (17:21)
[2024-01-08] MEDS ORDERED: ONDANSETRON INJ 2 MG/ML 2 ML VIAL IV PRN (17:21)
[2024-01-08] MEDS ORDERED: ALBUTEROL HFA 8 GM INHALER INH PRN (17:21)
[2024-01-08] MEDS ORDERED: NITROGLYCERIN SL 0.4 MG/TAB TAB SL PRN (17:21)
[2024-01-08] MEDS ORDERED: POLYETHYLENE (MIRALAX) 17 GM PACK PO PRN (17:21)
[2024-01-08] MEDS ORDERED: tiZANidine HCL 4 MG TABLET PO PRN (17:21)
[2024-01-08] MEDS ORDERED: ACETAMINOPHEN 325 MG TAB PO PRN (17:21)
[2024-01-08] MEDS ORDERED: DAPSONE 25 MG TAB PO PRN (17:31)
[2024-01-08] MEDS: SENNA 8.6 MG TAB PO SCH (21:23)
[2024-01-08] MEDS: GABAPENTIN 600 MG TAB PO SCH (21:23)
[2024-01-08] MEDS: HYDROcodone/ACETAMINOPHEN 10/325 TAB PO PRN (21:26)
[2024-01-09 04:04] LABS: Hematocrit (blood only) 36.1 % (42.0-52.0); Hemoglobin 12.1 g/dl (14.0-18.0); Mean Corpuscular Hemoglobin 30.1 pg (25.0-34.0); Mean Corpuscular Hgb Conc 33.5 g/dL (32.0-36.0); Mean Corpuscular Volume 89.8 fL (80.0-100.0); Mean Platelet Volume 9.6 fL (9.4-12.4); Platelet Count 360 K/uL (130-400); RDW Standard Deviation 42.9 fL (36.4-46.3); Red Blood Count 4.02 M/uL (4.70-6.10); White Blood Count 11.19 K/ul (4.8-10.8)
[2024-01-09 04:12] LABS: BUN Creatinine Ratio 30.7 (10-20); Calcium 8.8 mg/dl (8.6-10.3); Chol HDL Ratio 3.5 (0-5); Est GFR (African American) 78.8 ml/min; Potassium 4.4 mmol/L (3.5-5.1)
--- NOTE | 2024-01-09 07:30 | Hospitalist Progress Note ---
Date of Service January 09, 2024 Assessment & Plan (1) Chest pain: (2) CAD (coronary artery disease): (3) Interstitial lung disease: (4) Hypertension: (5) Dyslipidemia: Plan This is an 83yo M with a PMH of CAD, dyslipidemia, HTN, DM II, ILD, ACE, BPH, chronic pain syndrome and other medical problems listed below who presents with CP Exertional chest pain CAD, angina H/o CAD with progressively more severe exertional CP over the past few months Required 2 ntg earlier today to bring to resolution, currently chest pain free Follows with [facility] cards and per recent note had declined pursuit of cardiac cath, is now requesting EKG with sinus rhythm and PACs, no acute ST changes Initial HS trop 20.[address] Kirby, who requests patient be kept NPO at midnight except meds, their service will see Previous echo from 08/07 with normal LV size and wall motion. EF >70%. Moderate LVH. No significant AI or Continue aspirin, isosorbide, lisinopril, Zetia Has not tolerated metoprolol succinate due to hypotension and fatigue. Has not tolerated statin therapy Trend troponin, fasting lipids and repeat a1c in AM Pt is now s/p Successful PCI of RCA with 2 nonoverlapping drug-eluting stents. Proximal 3.0 x 18 mm [place]; postdilated with 3.5 NC -Distal 2.5 x 15 mm Haider; postdilated with 3.0 NC Recommendations: To PCU for continued monitoring Loaded with clopidogrel 600 mg in Typing Section Chief Continue dual-antiplatelet therapy for at least 1 year Continue statin, and ASCVD risk factor modification Consult cardiac Rehab ILD At baseline, saturating at 96% on room air. Follows with Pulm CXR with a new lobular right midlung zone density. Follow-up chest CT recommended to exclude the possibility of a pulmonary lesion - will need f/u imaging DM II Last a1c 7.0 in Jul 2023, repeat in AM Hold home agents SSI while in-patient BSG AC HS or Q6H while NPO Chronic pain syndrome H/o radiculopathy, follows with [facility], pain mgmt Continue home hydrocodone-acetaminophen, gabapentin, PRN tizanidine Does not feel duloxetine has been helping with pain and self-discontinued Code status: FULL PCP: Dr. De La Vega Dispo: Obs PCU Admission and Anticipated Discharge Date Admission Date: January 08, 2024 Subjective Pt seen in follow up of CP, follows with [facility] cardiology Underwent cardiac cath this AM , s/p HECTOR to RCA Currently laying in bed, resting, in NAD Denies any chest pain, shortness of breath, palpitations. Also denies any dizziness or lightheadedness. No abd. pain, or nausea. Review of Systems Review of Systems: All systems reviewed & are unremarkable except as noted in Subjective Physical Exam Physical Exam: General Appearance: WD/WN elderly M in NAD Head: normocephalic, atraumatic Eyes: normal inspection, PERRL, conjunctivae normal, anicteric sclerae ENT: external ear and nose normal Neck: normal visual inspection Respiratory: normal respiratory effort, lungs clear to auscultation, no wheeze, rales, rhonchi. No accessory muscle use Cardiovascular: regular rate, rhythm, +systolic murmur, normal peripheral pulses, no BLE edema. Chest: normal inspection of chest Abdomen/GI: normal bowel sounds, soft, nontender Extremities/Musculoskeletal: no LE edema, moves extremities Neurologic: PERRL, EOMI, no face palsy, no dysarthria, answers appropriately, moves all extremities Psychiatric: A+Ox3, euthymic affect Skin: warm/dry Results & Data Results & Data Vital Signs (Past 12 Hours) Vital Signs Pulse Pulse Resp BP BP Pulse Ox O2 Del Method 01/09/24 07:27 51 L 01/09/24 04:00 47 L 18 137/72 93 Room Air 01/09/24 03:17 Room Air 01/09/24 01:15 47 L 01/08/24 23:30 48 L 16 01/08/24 23:00 55 L 18 97 01/08/24 22:30 53 L 16 01/08/24 22:00 50 L 16 01/08/24 21:38 49 L 24 01/08/24 21:25 132/80 01/08/24 21:25 57 L 14 96 01/08/24 21:06 53 L 16 98 Room Air 01/08/24 21:00 49 L 21 97 01/08/24 20:30 63 18 94 01/08/24 20:00 47 L 15 96 01/08/24 19:38 57 L 20 Laboratory Results 04/26/24 04/25/24 04/25/24 Range/Units 03:43 21:38 21:17 WBC 11.19 H (4.8-10.8) K/ul RBC 4.02 L (4.70-6.10) M/uL Hgb 12.1 L (14.0-18.0) g/dl Hct 36.1 L (42.0-52.0) % MCV 89.8 (80.0-100.0) fL MCH 30.1 (25.0-34.0) pg MCHC 33.5 (32.0-36.0) g/dL RDW Std Deviation 42.9 (36.4-46.3) fL RDW Coeff of Geraldo 13.0 (11.5-14.5) % Plt Count 360 (130-400) K/uL MPV 9.6 (9.4-12.4) fL Immature Gran % (Auto) % Neut % (Auto) % Lymph % (Auto) % Hamilton % (Auto) % Eos % (Auto) % Baso % (Auto) % Neut # (Auto) (1.40-6.50) K/uL Lymph # (Auto) (1.20-3.40) K/uL Hamilton # (Auto) (0.11-0.59) K/uL Eos # (Auto) (0.00-0.50) K/uL Baso # (Auto) (0.00-0.20) K/uL Immature Gran # (Auto) (0.01-0.20) K/uL PT (9.0-12.0) Seconds INR (0.9-1.1) APTT (21-31) Seconds PTT Ratio Sodium 138 (136-145) mmol/L Potassium 4.4 (3.5-5.1) mmol/L Chloride 107 (98-107) mmol/L Carbon Dioxide 23 (21-32) mmol/L Anion Gap 8 (3-11) BUN 31 H (6-23) mg/dl Creatinine 1.01 (0.6-1.4) mg/dl Est Cr Clr Drug Dosing 58.0 ml/min Est GFR ( Amer) 78.8 ml/min Est GFR (Non-Af Amer) 68.0 ml/min BUN/Creatinine Ratio 30.7 H (10-20) Glucose 137 H (70-99(Fasting)) mg/dl POC Glucose 162 H (70-99) mg/dl Estimat Average Glucose Pending Hemoglobin A1c Pending Calcium 8.8 (8.6-10.3) mg/dl Total Bilirubin (0.2-1.0) mg/dl AST (13-39) U/L ALT (7-52) U/L Alkaline Phosphatase (34-104) U/L Troponin I High Sens 38.2 H D (0-20) pg/ml Total Protein (6.0-8.3) gm/dl Albumin (3.4-5.0) gm/dl Globulin (2.5-4.0) gm/dl Albumin/Globulin Ratio (0.9-2) Triglycerides 156 H (0-150) mg/dl Cholesterol 159 (0-200) mg/dl LDL Cholesterol, Calc 82 mg/dl VLDL Cholesterol, Calc 31 H (0-30) mg/dl HDL Cholesterol 46 mg/dl Cholesterol/HDL Ratio 3.5 (0-5) Lipase (11-82) U/L 01/08/24 01/08/24 01/08/24 Range/Units 16:21 15:18 13:37 WBC 12.83 H (4.8-10.8) K/ul RBC 4.10 L (4.70-6.10) M/uL Hgb 12.1 L (14.0-18.0) g/dl Hct 37.1 L (42.0-52.0) % MCV 90.5 (80.0-100.0) fL MCH 29.5 (25.0-34.0) pg MCHC 32.6 (32.0-36.0) g/dL RDW Std Deviation 42.4 (36.4-46.3) fL RDW Coeff of Geraldo 12.8 (11.5-14.5) % Plt Count 375 (130-400) K/uL MPV 9.5 (9.4-12.4) fL Immature Gran % (Auto) 0.4 % Neut % (Auto) 84.8 % Lymph % (Auto) 7.9 % Hamilton % (Auto) 6.8 % Eos % (Auto) 0.0 % Baso % (Auto) 0.1 % Neut # (Auto) 10.89 H (1.40-6.50) K/uL Lymph # (Auto) 1.01 L (1.20-3.40) K/uL Hamilton # (Auto) 0.87 H (0.11-0.59) K/uL Eos # (Auto) 0.00 (0.00-0.50) K/uL Baso # (Auto) 0.01 (0.00-0.20) K/uL Immature Gran # (Auto) 0.05 (0.01-0.20) K/uL PT 10.8 (9.0-12.0) Seconds INR 1.0 (0.9-1.1) APTT 26 (21-31) Seconds PTT Ratio 0.9 Sodium 138 (136-145) mmol/L Potassium 4.4 (3.5-5.1) mmol/L Chloride 106 (98-107) mmol/L Carbon Dioxide 25 (21-32) mmol/L Anion Gap 7 (3-11) BUN 32 H (6-23) mg/dl Creatinine 1.05 (0.6-1.4) mg/dl Est Cr Clr Drug Dosing 55.8 ml/min Est GFR ( Amer) 75.2 ml/min Est GFR (Non-Af Amer) 64.9 ml/min BUN/Creatinine Ratio 30.5 H (10-20) Glucose 186 H (70-99(Fasting)) mg/dl POC Glucose 137 H (70-99) mg/dl Estimat Average Glucose Hemoglobin A1c Calcium 9.2 (8.6-10.3) mg/dl Total Bilirubin 0.4 (0.2-1.0) mg/dl AST 13 (13-39) U/L ALT 8 (7-52) U/L Alkaline Phosphatase 75 (34-104) U/L Troponin I High Sens 27.7 H 20.9 H (0-20) pg/ml Total Protein 7.2 (6.0-8.3) gm/dl Albumin 4.2 (3.4-5.0) gm/dl Globulin 3.0 (2.5-4.0) gm/dl Albumin/Globulin Ratio 1.4 (0.9-2) Triglycerides (0-150) mg/dl Cholesterol (0-200) mg/dl LDL Cholesterol, Calc mg/dl VLDL Cholesterol, Calc (0-30) mg/dl HDL Cholesterol mg/dl Cholesterol/HDL Ratio (0-5) Lipase 6 L (11-82) U/L Medications Administered Current Inpatient Medications Acetaminophen (Acetaminophen 325 Mg Tab) 650 mg PO Q4H PRN PRN Reason: Pain or Fever Stop: 02/07/24 17:20 Hydrocodone Bitart/Acetaminophen (Hydrocodone/Acetaminophen 10/325 Tab) 1 tab PO Q6H PRN PRN Reason: Severe Pain (Scale Score 7-10) Stop: 01/22/24 17:20 Last Admin: 01/09/24 05:25 Dose: 1 tab Albuterol (Albuterol 0.083% Nebu Soln 3 Ml Vial) 2.5 mg INH QID PRN; Protocol PRN Reason: Shortness Of Breath Or Wheezin Stop: 02/07/24 17:20 Albuterol (Albuterol Hfa 8 Gm Inhaler) 2 puffs INH QIDR PRN PRN Reason: Shortness Of Breath Or Wheezing Stop: 02/07/24 17:20 Aspirin (Aspirin 81 Mg Ectab) 81 mg PO DAILY LEVAR Stop: 02/08/24 08:59 Cyanocobalamin (Cyanocobalamin (B-12) 100 Mcg Tablet) 100 mcg PO DAILY LEVAR Stop: 02/08/24 08:59 Dapsone (Dapsone 25 Mg Tab) 50 mg PO DAILY PRN PRN Reason: Itching Stop: 02/07/24 17:30 Dextrose (Dextrose 50% 50 Ml Syringe) 25 - 50 ml IV UD PRN; Protocol PRN Reason: Hypoglycemia Protocol Stop: 02/07/24 16:01 Diclofenac Sodium (Diclofenac Sod 1% Gel 100 Gm Tube) 4 gm EXT BID PRN; Protocol PRN Reason: Pain Stop: 02/07/24 17:20 Ezetimibe (Ezetimibe 10 Mg Tab) 10 mg PO DAILY LEVAR Stop: 02/08/24 08:59 Finasteride (Finasteride 5 Mg Tab) 5 mg PO DAILY LEVAR Stop: 02/08/24 08:59 Gabapentin (Gabapentin 600 Mg Tab) 600 mg PO BID LEVAR Stop: 02/07/24 20:59 Last Admin: 01/08/24 21:23 Dose: 600 mg Gabapentin (Gabapentin 300 Mg Cap) 900 mg PO DAILY@1200 [facility] Stop: 02/08/24 11:59 Glucagon (Glucagon For Inj 1 Mg Vial) 1 mg SQ UD PRN; Protocol PRN Reason: Hypoglycemia Protocol Stop: 02/07/24 16:01 Glucose (Glucose 40% Gel 15 Gm Tube) 15 - 30 gm PO UD PRN; Protocol PRN Reason: Hypoglycemia Protocol Stop: 02/07/24 16:01 Glucose (Glucose 10 Tab/Tube) 4 - 8 tab PO UD PRN; Protocol PRN Reason: Hypoglycemia Treatment Stop: 02/07/24 16:01 Insulin Aspart (Insulin Aspart Per Unit Charge) 0 units SC ACHS [facility] Stop: 02/07/24 16:29 Last Admin: 01/08/24 21:18 Dose: Not Given Isosorbide Mononitrate (Isosorbide Hamilton Extended Rel 30 Mg Tabcr) 30 mg PO DAILY [facility] Stop: 02/08/24 08:59 Lisinopril (Lisinopril 5 Mg Tab) 5 mg PO DAILY [facility] Stop: 02/08/24 08:59 Miscellaneous (Carbohydrates For Hypoglycemia ) 15 - 30 gm PO UD PRN PRN Reason: Hypoglycemia Protocol Stop: 02/07/24 16:01 Nitroglycerin (Nitroglycerin Sl 0.4 Mg/Tab Tab) 0.4 mg SL Q5M PRN PRN Reason: chest pain Stop: 02/07/24 17:20 Ondansetron HCl (Ondansetron Inj 2 Mg/Ml 2 Ml Vial) 4 mg IV Q6H PRN PRN Reason: Nausea Stop: 02/07/24 17:20 Pantoprazole Sodium (Pantoprazole 40 Mg Tab) 40 mg PO DAILY [facility] Stop: 02/08/24 08:59 Polyethylene Glycol (Polyethylene (Miralax) 17 Gm Pack) 17 gm PO DAILY PRN PRN Reason: Constipation Stop: 02/07/24 17:20 Sennosides (Senna 8.6 Mg Tab) 8.6 mg PO HS [facility] Stop: 02/07/24 20:59 Last Admin: 01/08/24 21:23 Dose: 8.6 mg Tizanidine HCl (Tizanidine Hcl 4 Mg Tablet) 2 mg PO BID PRN PRN Reason: MUSCLE SPASMS Stop: 02/07/24 17:20
[2024-01-09 07:41] LABS: Estimated Average Glucose 143 mg/dl; Hemoglobin A1C 6.6 % (4.5-5.6)
[2024-01-09] MEDS: lisinopril 5 MG TAB PO SCH (08:16)
[2024-01-09] MEDS: PANTOprazole 40 MG TAB PO SCH (08:16)
[2024-01-09] MEDS: CYANOCOBALAMIN (B-12) 100 MCG TABLET PO SCH (08:17)
[2024-01-09] MEDS: ASPIRIN 81 MG ECTAB PO SCH (08:17)
[2024-01-09] MEDS: ISOSORBIDE MONO EXTENDED REL 30 MG TABCR PO SCH (08:17)
[2024-01-09] MEDS: EZETIMIBE 10 MG TAB PO SCH (08:17)
[2024-01-09] MEDS: FINASTERIDE 5 MG TAB PO SCH (08:17)
--- NOTE | 2024-01-09 08:34 | Cardiology Consultation ---
Date of Consultation January 09, 2024 Assessment & Plan (1) Unstable angina: (2) CAD (coronary artery disease): (3) Aortic stenosis: (4) Hypertension: (5) Dyslipidemia: Plan ASSESSMENT/PLAN: 1. Unstable angina/acute coronary syndrome: Has had crescendo angina for the past couple of months which initially improved with nitrate therapy but now happening with much less exertion. No rest symptoms. High-sensitivity troponin mildly elevated and has not yet peaked. Trend troponin to peak. Heparin drip if no contraindication if cath not able to happen soon. Continue aspirin. Recommend cardiac catheterization. Risks and benefits were discussed with him in detail. He is agreeable. Discussed possibility of medical therapy, PCI, and CABG depending on findings. 2. CAD: Known multivessel CAD. Intolerant to several statin therapies. Tolerating Zetia. Has declined PCSK9 inhibitor. Not on beta-milagro due to bradycardia. Continue nitrate therapy. Management as above. 3. Aortic stenosis: On preliminary review, probably moderate on echo. Formal review is pending following measurements. Discussed preliminary findings with him. 4. Hypertension: Blood pressure normotensive. Continue MALDONADO inhibitor. If requires antianginal medication, could also consider calcium channel milagro such as amlodipine. 5. Dyslipidemia: Intolerant to statin therapy. Tolerating Zetia. LDL mildly above goal. Has declined PCSK9 inhibitor. Mediterranean diet. 6. Interstitial lung disease: Has been followed by pulmonology. 7. Disposition: Please call on-call pediatrician/medical doctor, Dr. Kirby, with any questions or concerns. Will discuss with radio talk show host, Dr. Amador for cardiac catheterization today. Patient care communicated with primary hospitalist, Dr. Avery. Highly complex medical issues. Thank you for allowing me to participate in the care of your patient. Please call for any other questions or concerns. Sincerely, Marcellus Ramos M.D. History of Present Illness Reason for Consultation: Chest pain Requesting Physician: Claire Thomson PA-C Attending Physician: David Avery MD History of Present Illness Mr. Levy is a pleasant 83-year-old gentleman who presents to cardiology clinic for followup non-ST elevation [place], multivessel coronary disease, dyslipidemia, ILD (follows with [facility]mon[facility]), and sleep apnea on CPAP. He has not tolerated simvastatin, pravastatin, crestor, or atorvastatin due to severe bilateral hand pain, which improves upon discontinuation of statin therapy. In January of 2022, he had infected mesh and underwent surgical removal at [facility] and also bowel resection. He then had a bowel obstruction, requiring fluid drainage. His cardiac history is significant for: 1. NSTEMI on 06/20/11 (peak troponin of 2.7). 2. Echocardiogram 06/20/11: Normal LV size and systolic function with EF 60%. No clear-cut regional wall motion abnormalities however it was a technically difficult study. No significant valvular abnormalities. 3. Cardiac catheterization 06/21/11: Multivessel disease. mid LAD stenosis 40% followed by a long 70% stenosis at the bifurcation of the third diagonal vessel. The third diagonal vessel also had an ostial 70% lesion. The distal LAD towards the apex was completely occluded but filled from left to left and [id number] collaterals. A large septal branch also had a 60% proximal stenosis. The distal circumflex had a 90% long stenosis; proximally there was a 30% stenosis. The RCA had a proximal 50-60% stenosis. This was the dominant vessel. Medical management was instituted. 4. Nuclear perfusion study (07/11/11): Abnormal SPECT nuclear perfusion study demonstrating a small-moderate area of inferolateral ischemia from base to apex, small area of apical ischemia, and possible small anteroseptal infarct. Mild inferolateral hypokinesis. 5. Echo 10/31/11: Normal LV size, wall motion, systolic function. EF 60%. No LVH. Other chambers normal in size and function. No significant valvular abnormalities. 6. Echo 07/20/2019: Normal LV size, wall motion, systolic function. EF 65-70%. No LVH. Sclerotic aortic valve. Mild MR. 7. Echo 10/12/2021 [facility]: Normal LV size. EF > 70%. Normal wall motion. Mild LVH. Sclerotic aortic valve. Mild intracavitary LV obstruction with Valsalva, likely due to hyperdynamic state. 8. Echo 08/13/23 [facility]: Normal LV size and wall motion. EF >70%. Moderate LVH. No significant AI or . RVSP 30-40. He was admitted on 01/08/2024 with angina. He was seen for an acute visit on 10/22/2023 by Jennifer Berrios PA-C for symptoms concerning for angina. Cardiac catheterization was suggested but he declined and wished for medical therapy. Nitrate therapy was initiated at that time. He followed up on 11/07/2023 with improvement of his chest discomfort but still had dyspnea on exertion. Cardiac catheterization was once again recommended but declined. He then called into the office on 01/07/2024 with anginal symptoms and it was recommended by nursing staff that he go to the ER but he declined. I called him later that day on multiple phone numbers but there was no answer. Nursing staff followed up with him on 01/08/2024 and he still declined emergency department evaluation and had an appointment scheduled on 01/12/2024. He continues to have exertional symptoms. He describes his chest discomfort as a burning that happens substernally and left side of his chest that radiates to his neck up to his ears. It is associated with shortness of breath and sometimes diaphoresis. Symptoms occur only with exertion and typically resolve within 5 to 7 minutes of rest. Yesterday, he took nitroglycerin while working in the garden which quickly resolved symptoms. He later took a shower and had recurrent chest discomfort, which once again resolved quickly with nitroglycerin. He then called 911. Anginal symptoms are happening more frequently with less exertion requiring to cause the symptoms. He also has occasional lightheadedness but denies syncope. He denies edema, palpitations, orthopnea, shortness of breath at rest, chest pain at rest, melena, hematochezia, hematuria, or other bleeding. He has had chest discomfort in the past after eating gluten but has not ingested any gluten recently. He has an IV dye allergy but has tolerated IV dye with Benadryl and prednisone in the past. He is currently chest pain-free. He states "I think I need a cardiac catheterization." Review of systems: As above. Family history: His mother had premature coronary disease established in her lower 60s. Social history: He denies tobacco, alcohol, or drug abuse. He is a . His in 2021 from ovarian cancer. He has 2 children. Grandchildren. Great grandchildren. 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 He lives in [place]. Has a great interest in hot bodulia cars and often fixes/rebuilds them. He is unaccompanied. Allergies Allergy/AdvReac Type Severity Reaction Status Date / Time iodine Allergy Intermediate ITCHY. Verified 01/08/24 16:17 SAME REACTION GLUTEN Penicillins Allergy Intermediate RASH Verified 01/08/24 16:17 gluten Allergy Mild rash Verified 01/08/24 16:17 tramadol Allergy Unknown unknown Verified 01/08/24 16:17 codeine AdvReac Mild itching Verified 01/08/24 16:17 Home Medications Medication Instructions Recorded Confirmed Type gabapentin 600 mg tablet See Rx Instructions .Route .COMPLEX 08/06/19 01/08/24 History pantoprazole 40 mg tablet,delayed 40 mg PO DAILY 08/06/19 01/08/24 History release finasteride 5 mg tablet 5 mg PO DAILY 09/04/20 01/08/24 History hydrocodone 10 mg-acetaminophen 1 tab PO Q6H PRN Severe Pain 12/08/20 01/08/24 History 325 mg tablet (Scale Score 7-10) acetaminophen 325 mg capsule 325 - 650 mg PO QID PRN Pain 03/16/21 01/08/24 History (Tylenol) dapsone 25 mg tablet 50 mg PO DAILY PRN Itching 03/16/21 01/08/24 History lisinopril 5 mg tablet 5 mg PO DAILY #90 tabs 05/29/21 01/08/24 Rx aspirin 81 mg tablet,delayed 81 mg PO DAILY 07/27/21 01/08/24 History release cyanocobalamin (vitamin B-12) 100 100 mcg PO DAILY 07/27/21 01/08/24 History mcg tablet (Vitamin B-12) diclofenac sodium 1 % topical gel 4 g topical BID PRN Pain 07/27/21 01/08/24 History red yeast rice 600 mg tablet 600 mg PO BID 07/27/21 01/08/24 History tizanidine 2 mg tablet 2 mg PO BID PRN MUSCLE SPASMS 07/27/21 01/08/24 History ezetimibe 10 mg tablet (Zetia) 10 mg PO DAILY #90 tabs 08/22/21 01/08/24 Rx metformin 500 mg tablet,extended 500 mg PO BID 08/12/23 01/08/24 History release 24 hr isosorbide mononitrate 30 mg 30 mg PO DAILY #30 tabs 10/22/23 01/08/24 Rx tablet,extended release 24 hr nitroglycerin 0.4 mg sublingual 0.4 mg sublingual Q5M PRN chest 10/22/23 01/08/24 Rx tablet pain #25 tabs albuterol sulfate 2.5 mg/3 mL 2.5 mg inhalation DIRECTED PRN 01/08/24 01/08/24 History (0.083 %) solution for nebulization Shortness Of Breath Or Wheezing albuterol sulfate 90 mcg/actuation 2 puff inhalation QID PRN 01/08/24 01/08/24 History aerosol inhaler Shortness Of Breath Or Wheezing aspirin 325 mg tablet 325 mg PO .TODAY 01/08/24 01/08/24 History ondansetron HCl 4 mg tablet 4 mg PO Q6 PRN naysea 01/08/24 01/08/24 History sennosides 8.6 mg tablet 8.6 mg PO HS 01/08/24 01/08/24 History sildenafil 50 mg tablet 25 - 50 mg PO DIRECTED PRN 01/08/24 01/08/24 History .erectile difunction Patient History Medical History (Updated 01/09/24 @ 09:19 by Juan David Ramos MD) Aortic stenosis Sacroiliitis Barretts esophagus Chronic back pain Spinal cord stimulator status Esophageal reflux Aortic valve sclerosis Hypertension Dyslipidemia CAD (coronary artery disease) NSTEMI on 06/20/11 (peak troponin of 2.7) Cardiac catheterization 06/21/11: Multivessel disease. mid LAD stenosis 40% followed by a long 70% stenosis at the bifurcation of the third diagonal vessel. The third diagonal vessel also had an ostial 70% lesion. The distal LAD towards the apex was completely occluded but filled from left to left and [id number] collaterals. A large septal branch also had a 60% proximal stenosis. The distal circumflex had a 90% long stenosis; proximally there was a 30% stenosis. The RCA had a proximal 50-60% stenosis. This was the dominant vessel. Medical management was instituted. Spinal stenosis Surgical History S/P insertion of spinal cord stimulator Dr. Arredondo - 2017 H/O lumbar discectomy L2-3, L3-4 w/ artificial discs by Dr. Huerta 11/2015 H/O exploratory laparotomy 1980s, lysis of adhesions for SBO H/O hernia repair History of hemilaminectomy S/P shoulder surgery S/P knee surgery S/P cholecystectomy S/P appendectomy Family History Mother Coronary heart disease Social History Smoking Status: Former smoker Second Hand Exposure: No; Do You Dip or Chew Tobacco: No; Hx Alcohol Use: No Hx Substance Use: No Preferred Language: Turkish Communication Ability: Effective Visual Impairment: No Limitations Hearing Ability: Hard of Hearing Lube Technician Required: No Beliefs That Will Affect Care: None marital status: / Current Living Situation: Alone Current Living Situation Comment: Home alone, independent ( passed 2021). current occupational status: retired Other Information That Helps Us Care for You: Yes (Very independent, has home and cabin, restores cars for fun) Feels Safe at Home: Yes Safety Concerns: Feels Safe At This Time Assistive Devices: None Assistive Devices Comment: Spinal stimulator Physical Exam Physical Exam: Gen.: No acute distress. Alert and oriented. HEENT: Anicteric sclera. Neck: No JVD. Cardiac: No ventricular heave. Regular. No ectopy. Normal S1-S2. 2/6 mid peaking systolic ejection murmur. No rubs or gallops. Pulmonary: Bibasilar crackles, R > L (chronic). Abdomen: Soft, nontender, nondistended, with normoactive bowel sounds. No bruits noted. Extremities: 2+ radial pulses bilaterally. 2+ posterior tibialis pulses bilaterally. No significant pitting edema. No cyanosis. Psychiatric: Affect appears appropriate. Results & Data Vital Signs (Past 12 Hours) Vital Signs Pulse Pulse Resp BP BP Pulse Ox O2 Del Method 01/09/24 08:15 55 L 18 131/70 96 Room Air 01/09/24 07:27 51 L 01/09/24 04:00 47 L 18 137/72 93 Room Air 01/09/24 03:17 Room Air 01/09/24 01:15 47 L 01/08/24 23:30 48 L 16 01/08/24 23:00 55 L 18 97 01/08/24 22:30 53 L 16 01/08/24 22:00 50 L 16 01/08/24 21:38 49 L 24 01/08/24 21:25 132/80 04/25/24 21:25 57 L 14 96 01/08/24 21:06 53 L 16 98 Room Air 01/08/24 21:00 49 L 21 97 01/08/24 20:30 63 18 94 Laboratory Results Laboratory Results - last 24 hr 01/08/24 01/08/24 01/08/24 13:37 15:18 16:21 WBC 12.83 H RBC 4.10 L Hgb 12.1 L Hct 37.1 L MCV 90.5 MCH 29.5 MCHC 32.6 RDW Std Deviation 42.4 RDW Coeff of Geraldo 12.8 Plt Count 375 MPV 9.5 Immature Gran % (Auto) 0.4 Neut % (Auto) 84.8 Lymph % (Auto) 7.9 [place] % (Auto) 6.8 Eos % (Auto) 0.0 Baso % (Auto) 0.1 Neut # (Auto) 10.89 H Lymph # (Auto) 1.01 L [place] # (Auto) 0.87 H Eos # (Auto) 0.00 Baso # (Auto) 0.01 Immature Gran # (Auto) 0.05 PT 10.8 INR 1.0 APTT 26 PTT Ratio 0.9 Sodium 138 Potassium 4.4 Chloride 106 Carbon Dioxide 25 Anion Gap 7 BUN 32 H Creatinine 1.05 Est Cr Clr Drug Dosing 55.8 Est GFR ( Amer) 75.2 Est GFR (Non-Af Amer) 64.9 BUN/Creatinine Ratio 30.5 H Glucose 186 H POC Glucose 137 H Estimat Average Glucose Hemoglobin A1c Calcium 9.2 Total Bilirubin 0.4 AST 13 ALT 8 Alkaline Phosphatase 75 Troponin I High Sens 20.9 H 27.7 H Total Protein 7.2 Albumin 4.2 Globulin 3.0 Albumin/Globulin Ratio 1.4 Triglycerides Cholesterol LDL Cholesterol, Calc VLDL Cholesterol, Calc HDL Cholesterol Cholesterol/HDL Ratio Lipase 6 L 01/08/24 01/08/24 01/09/24 21:17 21:38 03:43 WBC 11.19 H RBC 4.02 L Hgb 12.1 L Hct 36.1 L MCV 89.8 MCH 30.1 MCHC 33.5 RDW Std Deviation 42.9 RDW Coeff of Geraldo 13.0 Plt Count 360 MPV 9.6 Immature Gran % (Auto) Neut % (Auto) Lymph % (Auto) [place] % (Auto) Eos % (Auto) Baso % (Auto) Neut # (Auto) Lymph # (Auto) [place] # (Auto) Eos # (Auto) Baso # (Auto) Immature Gran # (Auto) PT INR APTT PTT Ratio Sodium 138 Potassium 4.4 Chloride 107 Carbon Dioxide 23 Anion Gap 8 BUN 31 H Creatinine 1.01 Est Cr Clr Drug Dosing 58.0 Est GFR ( Amer) 78.8 Est GFR (Non-Af Amer) 68.0 BUN/Creatinine Ratio 30.7 H Glucose 137 H POC Glucose 162 H Estimat Average Glucose 143 Hemoglobin A1c 6.6 H Calcium 8.8 Total Bilirubin AST ALT Alkaline Phosphatase Troponin I High Sens 38.2 H D Total Protein Albumin Globulin Albumin/Globulin Ratio Triglycerides 156 H Cholesterol 159 LDL Cholesterol, Calc 82 VLDL Cholesterol, Calc 31 H HDL Cholesterol 46 Cholesterol/HDL Ratio 3.5 Lipase 01/09/24 08:10 WBC RBC Hgb Hct MCV MCH MCHC RDW Std Deviation RDW Coeff of Geraldo Plt Count MPV Immature Gran % (Auto) Neut % (Auto) Lymph % (Auto) [place] % (Auto) Eos % (Auto) Baso % (Auto) Neut # (Auto) Lymph # (Auto) [place] # (Auto) Eos # (Auto) Baso # (Auto) Immature Gran # (Auto) PT INR APTT PTT Ratio Sodium Potassium Chloride Carbon Dioxide Anion Gap BUN Creatinine Est Cr Clr Drug Dosing Est GFR ( Amer) Est GFR (Non-Af Amer) BUN/Creatinine Ratio Glucose POC Glucose 121 H Estimat Average Glucose Hemoglobin A1c Calcium Total Bilirubin AST ALT Alkaline Phosphatase Troponin I High Sens Total Protein Albumin Globulin Albumin/Globulin Ratio Triglycerides Cholesterol LDL Cholesterol, Calc VLDL Cholesterol, Calc HDL Cholesterol Cholesterol/HDL Ratio Lipase Diagnostic Findings Telemetry personally reviewed: No arrhythmia. Sinus rhythm with sinus bradycardia. Labs reviewed and notable for mildly elevated but trending upward high- sensitivity troponin; stable renal function, normal potassium, normal transaminase levels, chronic and stable mild leukocytosis, chronic and stable mild anemia. Mildly elevated LDL in the setting of CAD. Chest x-ray 01/08/2024: New lobular right mid lung zone density. Chronic interstitial thickening. ECG personally reviewed 01/08/2024 1324: Sinus rhythm with PACs 65 bpm. Echo images personally reviewed from 01/09/2024: Preliminary review demonstrated normal LV systolic function without obvious regional wall motion abnormalities. Probable moderate aortic stenosis.. Formal review is pending. Medications Administered Current Inpatient Medications Acetaminophen (Acetaminophen 325 Mg Tab) 650 mg PO Q4H PRN PRN Reason: Pain or Fever Stop: 02/07/24 17:20 Hydrocodone Bitart/Acetaminophen (Hydrocodone/Acetaminophen 10/325 Tab) 1 tab PO Q6H PRN PRN Reason: Severe Pain (Scale Score 7-10) Stop: 01/22/24 17:20 Last Admin: 01/09/24 05:25 Dose: 1 tab Albuterol (Albuterol 0.083% Nebu Soln 3 Ml Vial) 2.5 mg INH QID PRN; Protocol PRN Reason: Shortness Of Breath Or Wheezin Stop: 02/07/24 17:20 Albuterol (Albuterol Hfa 8 Gm Inhaler) 2 puffs INH QIDR PRN PRN Reason: Shortness Of Breath Or Wheezing Stop: 02/07/24 17:20 Aspirin (Aspirin 81 Mg Ectab) 81 mg PO DAILY LEVAR Stop: 02/08/24 08:59 Last Admin: 01/09/24 08:17 Dose: 81 mg Cyanocobalamin (Cyanocobalamin (B-12) 100 Mcg Tablet) 100 mcg PO DAILY LEVAR Stop: 02/08/24 08:59 Last Admin: 01/09/24 08:17 Dose: 100 mcg Dapsone (Dapsone 25 Mg Tab) 50 mg PO DAILY PRN PRN Reason: Itching Stop: 02/07/24 17:30 Dextrose (Dextrose 50% 50 Ml Syringe) 25 - 50 ml IV UD PRN; Protocol PRN Reason: Hypoglycemia Protocol Stop: 02/07/24 16:01 Diclofenac Sodium (Diclofenac Sod 1% Gel 100 Gm Tube) 4 gm EXT BID PRN; Protocol PRN Reason: Pain Stop: 02/07/24 17:20 Ezetimibe (Ezetimibe 10 Mg Tab) 10 mg PO DAILY LEVAR Stop: 02/08/24 08:59 Last Admin: 01/09/24 08:17 Dose: 10 mg Finasteride (Finasteride 5 Mg Tab) 5 mg PO DAILY LEVAR Stop: 02/08/24 08:59 Last Admin: 01/09/24 08:17 Dose: 5 mg Gabapentin (Gabapentin 600 Mg Tab) 600 mg PO BID LEVAR Stop: 02/07/24 20:59 Last Admin: 01/09/24 08:17 Dose: 600 mg Gabapentin (Gabapentin 300 Mg Cap) 900 mg PO DAILY@1200 [facility] Stop: 02/08/24 11:59 Glucagon (Glucagon For Inj 1 Mg Vial) 1 mg SQ UD PRN; Protocol PRN Reason: Hypoglycemia Protocol Stop: 02/07/24 16:01 Glucose (Glucose 40% Gel 15 Gm Tube) 15 - 30 gm PO UD PRN; Protocol PRN Reason: Hypoglycemia Protocol Stop: 02/07/24 16:01 Glucose (Glucose 10 Tab/Tube) 4 - 8 tab PO UD PRN; Protocol PRN Reason: Hypoglycemia Treatment Stop: 02/07/24 16:01 Insulin Aspart (Insulin Aspart Per Unit Charge) 0 units SC [facility] Stop: 02/07/24 16:29 Last Admin: 01/09/24 09:14 Dose: Not Given Isosorbide Mononitrate (Isosorbide [place] Extended Rel 30 Mg Tabcr) 30 mg PO DAILY LEVAR Stop: 02/08/24 08:59 Last Admin: 01/09/24 08:17 Dose: 30 mg Lisinopril (Lisinopril 5 Mg Tab) 5 mg PO DAILY LEVAR Stop: 02/08/24 08:59 Last Admin: 01/09/24 08:16 Dose: 5 mg Miscellaneous (Carbohydrates For Hypoglycemia ) 15 - 30 gm PO UD PRN PRN Reason: Hypoglycemia Protocol Stop: 02/07/24 16:01 Nitroglycerin (Nitroglycerin Sl 0.4 Mg/Tab Tab) 0.4 mg SL Q5M PRN PRN Reason: chest pain Stop: 02/07/24 17:20 Ondansetron HCl (Ondansetron Inj 2 Mg/Ml 2 Ml Vial) 4 mg IV Q6H PRN PRN Reason: Nausea Stop: 02/07/24 17:20 Pantoprazole Sodium (Pantoprazole 40 Mg Tab) 40 mg PO DAILY [facility] Stop: 02/08/24 08:59 Last Admin: 01/09/24 08:16 Dose: 40 mg Polyethylene Glycol (Polyethylene (Miralax) 17 Gm Pack) 17 gm PO DAILY PRN PRN Reason: Constipation Stop: 02/07/24 17:20 Sennosides (Senna 8.6 Mg Tab) 8.6 mg PO HS [facility] Stop: 02/07/24 20:59 Last Admin: 01/08/24 21:23 Dose: 8.6 mg Tizanidine HCl (Tizanidine Hcl 4 Mg Tablet) 2 mg PO BID PRN PRN Reason: MUSCLE SPASMS Stop: 02/07/24 17:20 PG Care Time/CCT Total # of Minutes Spent Total Time Spent with Patient: Total time spent is greater than 50% in coordination of care (as documented) at patient's floor/unit and/or counseling patient: Coding Level of Care Code 81223 INT INP/OBS CARE 3/75MIN Diagnoses Unstable angina I20.0 CAD (coronary artery disease) I25.10 Aortic stenosis I35.0 Hypertension I10 Dyslipidemia E78.5
--- NOTE | 2024-01-09 10:06 | Pre Anesthesia Assessment ---
Date of Service January 09, 2024 Pre Sedation Assessment Vital Signs Temp Pulse Pulse Resp BP BP Pulse Ox 01/09/24 09:56 01/09/24 08:15 55 L 18 131/70 96 01/09/24 07:27 51 L 01/09/24 04:00 47 L 18 137/72 93 01/09/24 03:17 01/09/24 01:15 47 L 01/08/24 23:30 48 L 16 01/08/24 23:00 55 L 18 97 01/08/24 22:30 53 L 16 01/08/24 22:00 50 L 16 01/08/24 21:38 49 L 24 01/08/24 21:25 132/80 01/08/24 21:25 57 L 14 96 01/08/24 21:06 53 L 16 98 01/08/24 21:00 49 L 21 97 01/08/24 20:30 63 18 94 01/08/24 20:00 47 L 15 96 01/08/24 19:38 57 L 20 01/08/24 19:00 53 L 22 95 01/08/24 18:01 71 20 137/70 97 01/08/24 17:21 01/08/24 17:21 01/08/24 17:01 57 L 19 168/76 H 95 01/08/24 16:31 57 L 22 135/71 96 01/08/24 15:56 60 20 125/68 95 01/08/24 15:55 93 H 24 01/08/24 15:00 55 L 17 98 01/08/24 15:00 132/81 01/08/24 15:00 132/81 01/08/24 14:37 65 96 01/08/24 14:30 133/73 01/08/24 14:30 54 L 18 95 01/08/24 14:01 63 21 96 01/08/24 14:01 112/63 01/08/24 14:01 68 01/08/24 14:00 64 17 96 01/08/24 13:30 68 30 H 01/08/24 13:30 140/71 01/08/24 13:30 140/71 01/08/24 13:29 17 96 01/08/24 13:29 01/08/24 13:29 98.2 F 67 17 140/71 96 01/08/24 13:28 70 19 96 01/08/24 13:27 120/72 Pulse Ox O2 Del Method O2 Del Method 01/09/24 09:56 Room Air 01/09/24 08:15 Room Air 01/09/24 07:27 01/09/24 04:00 Room Air 01/09/24 03:17 Room Air 01/09/24 01:15 01/08/24 23:30 01/08/24 23:00 01/08/24 22:30 01/08/24 22:00 01/08/24 21:38 01/08/24 21:25 01/08/24 21:25 01/08/24 21:06 Room Air 01/08/24 21:00 01/08/24 20:30 01/08/24 20:00 01/08/24 19:38 01/08/24 19:00 01/08/24 18:01 Room Air 01/08/24 17:21 Room Air 01/08/24 17:21 96 Room Air 01/08/24 17:01 Room Air 01/08/24 16:31 Room Air 01/08/24 15:56 01/08/24 15:55 01/08/24 15:00 01/08/24 15:00 01/08/24 15:00 01/08/24 14:37 Room Air 01/08/24 14:30 01/08/24 14:30 01/08/24 14:01 01/08/24 14:01 01/08/24 14:01 01/08/24 14:00 01/08/24 13:30 01/08/24 13:30 01/08/24 13:30 01/08/24 13:29 01/08/24 13:29 Room Air 01/08/24 13:29 Room Air 01/08/24 13:28 01/08/24 13:27 Cardiovascular + regular rate Respiratory + respiratory effort normal Pre-Sedation Airway Assessment Smoking Status: Former smoker Hx Sleep Apnea: No Hx Difficult Intubation: No Short, Thick Neck: No Thyromental Distance: > or= 3.5 Finger Breadths Oral Cavity: + WNL Mallampati Class: III ASA: ASA3 Procedure Planning Contraindications for Sedation: none Current Medications Reviewed: Yes Notes The planned sedation has been discussed with the patient. Informed Consent was obtained. I have identified the patient, determined the appropriateness of sedation and have assessed the patient immediately prior to the procedure. All medicine(s) and interventions are by my order.
[2024-01-09] MEDS: NITROGLYCERIN/D5W 100MCG/ML 20ML SYR ONE (10:26)
[2024-01-09] MEDS: niCARdipine HCL INJ 2.5 MG/ML 10 ML AMP ONE (10:26)
[2024-01-09] MEDS: MIDAZOLAM HCL 1 MG/ML 2ML VIAL ONE ×2 (10:56→11:54)
[2024-01-09] MEDS: diphenhydrAMINE 50 MG/ML VIAL ONE (10:57)
[2024-01-09] MEDS: FAMOTIDINE 20MG/5ML IV PUSH IV ONE (10:58)
[2024-01-09] MEDS: methylPREDNISolone 125 MG/2 ML VIAL ONE (10:58)
--- NOTE | 2024-01-09 10:58 | XCELERA ---
[id number] [id number]
[2024-01-09] MEDS: HEPARIN (PORCINE) 1000 UNIT/ML 10 ML (CATH LAB USE ONLY) ONE ×2 (11:01→11:55)
[2024-01-09] MEDS: fentaNYL citrate PF 100 MCG/2 ML VIAL ONE (11:26)
[2024-01-09] MEDS: OPTIRAY 350 ONE (11:54)
--- NOTE | 2024-01-09 12:03 | Post Anesthesia Assessment ---
Date of Service January 09, 2024 Post Sedation Assessment Vital Signs Temp Pulse Pulse Resp BP BP Pulse Ox 01/09/24 10:06 98.1 F 56 L 18 119/67 95 01/09/24 09:56 01/09/24 08:15 55 L 18 131/70 96 01/09/24 07:27 51 L 01/09/24 04:00 47 L 18 137/72 93 01/09/24 03:17 01/09/24 01:15 47 L 01/08/24 23:30 48 L 16 01/08/24 23:00 55 L 18 97 01/08/24 22:30 53 L 16 01/08/24 22:00 50 L 16 01/08/24 21:38 49 L 24 01/08/24 21:25 132/80 01/08/24 21:25 57 L 14 96 01/08/24 21:06 53 L 16 98 01/08/24 21:00 49 L 21 97 01/08/24 20:30 63 18 94 01/08/24 20:00 47 L 15 96 01/08/24 19:38 57 L 20 01/08/24 19:00 53 L 22 95 01/08/24 18:01 71 20 137/70 97 01/08/24 17:21 01/08/24 17:21 01/08/24 17:01 57 L 19 168/76 H 95 01/08/24 16:31 57 L 22 135/71 96 01/08/24 15:56 60 20 125/68 95 01/08/24 15:55 93 H 24 01/08/24 15:00 55 L 17 98 01/08/24 15:00 132/81 01/08/24 15:00 132/81 01/08/24 14:37 65 96 01/08/24 14:30 133/73 01/08/24 14:30 54 L 18 95 01/08/24 14:01 63 21 96 01/08/24 14:01 112/63 01/08/24 14:01 68 01/08/24 14:00 64 17 96 01/08/24 13:30 68 30 H 01/08/24 13:30 140/71 01/08/24 13:30 140/71 01/08/24 13:29 17 96 01/08/24 13:29 01/08/24 13:29 98.2 F 67 17 140/71 96 01/08/24 13:28 70 19 96 01/08/24 13:27 120/72 Pulse Ox O2 Del Method O2 Del Method 01/09/24 10:06 Room Air 01/09/24 09:56 Room Air 01/09/24 08:15 Room Air 01/09/24 07:27 01/09/24 04:00 Room Air 01/09/24 03:17 Room Air 01/09/24 01:15 01/08/24 23:30 01/08/24 23:00 01/08/24 22:30 01/08/24 22:00 01/08/24 21:38 01/08/24 21:25 01/08/24 21:25 01/08/24 21:06 Room Air 01/08/24 21:00 01/08/24 20:30 01/08/24 20:00 01/08/24 19:38 01/08/24 19:00 01/08/24 18:01 Room Air 01/08/24 17:21 Room Air 01/08/24 17:21 96 Room Air 01/08/24 17:01 Room Air 01/08/24 16:31 Room Air 01/08/24 15:56 01/08/24 15:55 01/08/24 15:00 01/08/24 15:00 01/08/24 15:00 01/08/24 14:37 Room Air 01/08/24 14:30 01/08/24 14:30 01/08/24 14:01 01/08/24 14:01 01/08/24 14:01 01/08/24 14:00 01/08/24 13:30 01/08/24 13:30 01/08/24 13:30 01/08/24 13:29 01/08/24 13:29 Room Air 01/08/24 13:29 Room Air 01/08/24 13:28 01/08/24 13:27 Recovery Score Activity: Moves 4 extremities Respiration: Deep Breath/Cough Circulation: +/-20% PreAnes Value Consciousness: Fully Awake Oxygen Saturation: O2 needed for >90% Discharge Sedation Level of Care: Fast Track Phase II Post Sedation Plan On clinical assessment, the patient appears to have tolerated the sedation without complications. Patient is recovering as anticipated. Patient will continue to be monitored by nursing and may be discharged when sedation discharge criteria are met per below protocol. Upon Completions of procedure up to 15 minutes continue every 5 minute vital signs and the P.A.R. score; then discharge to a Phase I or Fast Track to Phase II per the following guidelines: * Discharge Patient to appropriate Phase II area if PAR is 8 or greater or return to pre- procedure baseline. The post - procedure orders will be as dir ected. * If PAR score is less than 8 or not return to pre-procedure baseline then patient will follow Phase I monitoring till PAR is reached for Phase II. The Phase I may be done in procedure room or may call to secure a Phase I area. * If naloxone or flumazenil are used for reversal, hold in Phase I for continued monitoring from when last reversal dose was given for a minimum of 60 minutes or longer pending the nurse and/or physician discretion of patient condition before discharge to Phase II. Please call the Sedation Physician to re-evaluate and complete post-note for discharge to Phase II area. Do NOT discharge from procedure sedation or Phase 1 until post- sedation evaluation note is complete by procedure /sedation MD Sedation Discharge Instructions to be given to the patient at discharge to home.
--- NOTE | 2024-01-09 12:06 | Cardiac Catheterization ---
[facility] Data: Peer Tutor Cardiac Status Clinical evaluation leading to the procedure CAD Presenation: Unstable angina Anginal Classification: CCS III Diagnostic Physicians Name: Marino Amador MD Closure Device Recommendations: PCI without planned CABG Cardiac Cath Procedure Full Procedure Date January 09, 2024 Pre-Procedure Diagnosis Pre-Procedure Diagnosis: Angina and CAD AUC Score AUC Score: 7 Post-Procedure Diagnosis Post-Procedure Diagnosis: Severe CAD Procedure(s) Performed Procedure(s) Performed: Coronary Angiography, Left Heart Cath and Drug Eluting Stent Housekeeping Room Attendant Marino Amador MD Can Conveyor Feeder(s) Senior Production Supervisor Estimated Blood Loss Estimated Blood Loss: 20 Medication(s) Medication(s): Clopidogrel, Fentanyl, Heparin, Lidocaine 1%, Nicardipine, Nitroglycerin and Versed Summary of Findings Indication: Accelerating angina, history of CAD Access: 6 Fr right radial artery Catheters: [place], JR4 guide Findings: LM -normal caliber, no significant disease LAD -medium caliber vessel, 80-90% calcified mid LAD stenosis after takeoff of D1. Earlydistal subtotal occlusion. Apical partially fills via left to left collaterals and faint right to left collaterals. Small D1 80% proximal stenosis Circumflex -medium caliber, 80% proximal stenosis, 70% distal stenosis. Small to medium high OM1 without disease. Medium caliber OM 2 40% mid segment disease RCA -dominant, medium caliber, diffuse proximal to mid disease up to 70%, mid se gment ectatic, focal 95% distal stenosis. RPDA, RPLB without significant disease LVEDP - 11 -- PCI -- Antithrombotic therapy: Heparin, clopidogrel Procedure: RCA cannulated with JR4 guide Pre-procedure flow ARIANA 3 BMW wire passed across lesion into distal vessel With the aid of telescope support catheter distal RCA lesion predilated with 2.5 compliant balloon Dilated lesion stented with 2.5 x 15 mm [place] drug-eluting stent Stent post-dilated with 3.0 noncompliant balloon IC vasodilators administered for spasm Residual severe disease in proximal to mid segment stented with 3.0 x 18 mm [place] drug-eluting stent Stent postdilated with 3.5 NC Additional IC vasodilators administered for spasm Post procedure ARIANA 3 flow, stents well expanded without significant residual stenosis. No apparent cardiac complications. Arterial Closure: TR band Summary: 1. Severe multivessel coronary artery disease -70% proximal to mid RCA, 95% distal RCA 80% proximal circumflex, 70% distal circumflex 80-90% calcified mid LAD. Subtotal distal LAD occlusion with collaterals to apical vessel. 2. Normal intracardiac filling pressure 3. Successful PCI of RCA with 2 nonoverlapping drug-eluting stents. Proximal 3.0 x 18 mm [place]; postdilated with 3.5 NC -Distal 2.5 x 15 mm [place]; postdilated with 3.0 NC Recommendations: To PCU for continued monitoring Loaded with clopidogrel 600 mg in Peer Tutor Continue dual-antiplatelet therapy for at least 1 year Continue statin, and ASCVD risk factor modification Consult cardiac Rehab If refractory symptoms on maximal antianginal therapy can proceed with PCI of proximal circumflex and/or mid LAD. Hemodynamics Rest Ao:: 115/53/79 Final Ao: 122/53/77 LV: 126/11 Recommendations Recommendations: PCI without planned CABG Specimens Specimens: None Radiation Exposure (mGy) 3926 Contrast (mls) 150 Anesthesia Moderate 1815-9755 Procedural Complication(s) None Disposition PCU I attest to the content of the Intraoperative Record and any orders documented therein. Any exceptions are noted below. [facility] Card Cath Procedure Codes Cardiac Catheterization Procedure 1: Cardiovascular Cath Procedures: 62467 Coronaries and LHC (+/-LV) Moderate Sedation Procedure 1: Sedation/Anesthesia: 43210 Mod Sedation by the same physician;Init15 Min Child Age 5 & Up Procedure 2: Sedation/Anesthesia: 42969 Mod Sedation by the same physician; Ea [id number] Minutes Stenting Procedure 1: Cardiovascular Stent Procedures: 32170 Perc transcatheter placement of intracoronary stent(s), with ang PG Care Time/CCT Total # of Minutes Spent Total Time Spent with Patient: Total time spent is greater than 50% in coordination of care (as documented) at patient's floor/unit and/or counseling patient:
[2024-01-09] MEDS: CLOPIDOGREL BISULFATE 300 MG TAB ONE (12:14)
--- NOTE | 2024-01-09 12:57 | Electrocardiogram Report ---
Test Reason : Blood Pressure : / mmHG Vent. Rate : 051 BPM Atrial Rate : 051 BPM P-R Int : 184 ms QRS Dur : 082 ms QT Int : 420 ms P-R-T Axes : 072 -12 008 degrees QTc Int : 387 ms Poor data quality, interpretation may be adversely affected Sinus bradycardia Otherwise normal ECG When compared with ECG of 08-JAN-2024 13:24, Premature atrial complexes are no longer Present Confirmed by Angel Kirby ([id number]) on 01/09/2024 12:57:13 PM Referred By: REFERRED SELF Confirmed By:Angel Kirby
[2024-01-09] MEDS: GABAPENTIN 300 MG CAP PO SCH (14:49)
--- OUTSIDE RECORDS SUMMARY | 2024-01-09 19:33 | External Medical Summary | Summary of Care ---
Author Name Unknown Organization [facility] Address [address] [facility] [place] [address] Phone [phone] Care Team Providers Care Trade Mark Examiner Name Role Phone Manav De La Vegaadeline Primary Care Provider Reason for Visit * Reason Comments Knee Pain Left Encounter Details Date Type Department Care Team (Latest Contact Info) Description 01/07/2024 9:30 AM EDT Office Visit Orthopaedics [facility] [address] [place] [address] Wilfredo Vázquez DO [address] [place] [address] Primary osteoarthritis of left knee*; Effusion of left knee Allergies Active Allergy Reactions Criticality Noted Date Comments Codeine Itching 05/20/2012 adverse reactions In large amounts only Gluten Itching 05/29/2005 Breaking out in blisters Gluten Meal Low 11/28/2022 Other reaction(s): rash Iodine Itching 02/28/2011 oral Atorvastatin Calcium Muscle pain 02/21/2014 Meloxicam Renal complications Medium 09/24/2017 Penicillins Rash 08/16/2002 Tramadol Hcl 08/07/2011 Bad stomach problems documented as of this encounter (statuses as of 01/07/2024) Medications Medication Sig Dispensed Refills Start Date [...] for Constipation. 255 g 0 08/06/2021 Active Additional Information Patient not taking.Reported on 11/27/2023 CPAP every night at bedtime. 0 Active Sennosides 8.6 MG Oral Tablet (Senokot) Take by mouth 1 Tablet in the morning. For constipation. 15 Tablet 0 02/04/2022 Active Sildenafil Citrate 50 MG Oral TabletIndications:C ombined arterial insufficiency and corporo-venous occlusive erectile dysfunction Take 1/2 to 1 tablet by mouth 30 minutes prior to intercourse as needed for erectile dysfunction. 30 Tablet 2 10/14/2022 Active Finasteride 5 MG Oral Tablet (Proscar)Indication s:BPH with obstruction/lower urinary tract symptoms TAKE ONE TABLET BY MOUTH DAILY 90 Tablet 3 11/21/2022 4 Active metFORMIN HCl ER 500 MG Oral [...] FOR ITCHING 60 Tablet 2 05/01/2023 Active tiZANidine HCl 2 MG Oral Tablet (Zanaflex)Indicatio ns:Lumbar radiculopathy Take 1 Tablet by mouth 2 times a day as needed for Muscle spasms. 60 Tablet 1 08/11/2023 Active DULoxetine HCl 60 MG Oral Capsule Delayed Release Particles (Cymbalta)Indicatio ns:Chronic pain syndrome TAKE 1 CAPSULE BY MOUTH IN THE MORNING 90 Capsule 3 08/20/2023 4 Active guaiFENesin ER 600 MG Oral Tablet Extended Release 12 Hour (Mucinex) Take 1 Tablet by mouth 2 times a day as needed for Congestion. Take with plenty of water. Do not cut, crush or chew 40 Tablet 2 08/20/2023 Active Additional Information Patient not taking.Reported on 09/23/2023 Ezetimibe 10 MG Oral Tablet (Zetia) TAKE ONE TABLET (10MG) BY MOUTH DAILY 90 Tablet 1 08/28/2023 Active Lisinopril 5 MG Oral Tablet (Prinivil)Indicatio ns:HTN, goal below 140/90 TAKE 1 TABLET BY MOUTH IN THE EVENING. 90 Tablet 3 09/17/2023 5 Active Isosorbide Mononitrate ER 30 MG Oral Tablet Extended Release 24 Hour (Imdur) take 1 tablet (30 mg) orally daily 30 Tablet 5 10/22/2023 Active Nitroglycerin 0.4 MG Sublingual Tablet Sublingual (Nitrostat) dissolve one tablet (0.4 MG) sublingually every 5 minutes As Needed for chest pain 25 Tablet 5 10/22/2023 Active Additional Information Patient not taking.Reported on 11/27/2023 Pantoprazole Sodium 40 MG Oral Tablet Delayed Release (Protonix)Indicatio ns:High grade dysplasia of Nash's epithelium Take 1 Tablet by mouth in the morning. 90 Tablet 1 12/10/2023 Active Ondansetron HCl 4 MG Oral Tablet Take 1 Tablet by mouth every 6 hours as needed for Nausea. 30 Tablet 0 12/17/2023 Active HYDROcodone-Acetami nophen 10-325 MG Oral TabletIndications:L umbar radiculitis Take 1 Tablet by mouth every 6 hours as needed for Other (pain). 120 Tablet 0 12/24/2023 Active Hospital, Clinic, or Other Facility Administered Medication Ordered Dose Route Frequency Start Date End Date Status Albuterol Sulfate (Proventil) (2.5 MG/3ML) 0.083% inhalation solution 2.5 mgIndications:ILD (interstitial lung disease) (HCC),Asbestosis (HCC) 2.5 mg NEBULIZER PRN 2023 10/06/2024 Ac tive Albuterol Sulfate (Proventil) (5 MG/ML) 0.5% *conc* inhalation solution 2.5 mgIndications:ILD (interstitial lung disease) (HCC),Asbestosis (HCC) 2.5 mg NEBULIZER PRN 2023 10/06/2024 Ac tive lidocaine 1% 1 mL - triamcinolone acetonide 40 mg/mL 1 mL inj 2 mLIndications:Primary osteoarthritis of left knee,Effusion of left knee 2 mL IJ ONCE 01/07/2024 01/07/2024 Ended documented as of this encounter (statuses as of 01/07/2024) Active Problems Problem Noted Date Diagnosed Date Overweight (BMI 25.0-29.9) 08/20/2023 Organic erectile dysfunction 08/20/2023 Oxygen dependent 08/20/2023 ACE (obstructive sleep apnea) 08/20/2023 Lumbar degenerative disc disease 08/19/2023 Generalized osteoarthritis 08/19/2023 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 11/21/2022 Coronary artery disease invo lving um[place]illa tribe coronary artery of [place] tribe heart without angina pectoris 11/22/2021 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 ILD (interstitial lung disease) 09/27/2021 Atherosclerosis of aorta 08/02/2021 Dyslipidemia 12/15/2019 Chronic pain 06/29/2018 HTN, goal below 140/90 04/16/2018 BPH without obstruction/lower urinary tract symp toms 04/16/2018 Controlled substance agreement signed 04/16/2018 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 Celiac disease 11/20/2006 Overview: well controlled with diet documented as of this encounter (statuses as of 01/07/2024) Resolved Problems Problem Noted Date Diagnosed Date Resolved Date Ileus, postoperative 02/08/2022 023 Pelvic abscess in male 02/08/202205/01 Infected hernioplasty mesh 02/04/2022 0 05/01/2023 Protein-calorie malnutrition 11/22/2021 05/01/2023 Diabetes mellitus without complication 11/22/2021 08/19/2023 Acute respiratory failure due to COVID-19 09/27/2021 01/10/2022 SBO (small bowel obstruction) 08/05/2021 05/01/2023 Primary osteoarthritis of ce th first carpometacarpal joints 05/11/2019 08/19/2023 Prediabetes 04/26/2019 08/19/2023 Overview: Per Prediabetes protocol History of colon polyps 12/15/2018 12/01/2023 Systolic ejection murmur 04/16/201801/2023 S/P lumbar fusion 12/10/2016 08/19/2023 Primary osteoarthritis of left knee 07/03/2016 08/19/2023 S/P lumbar microdiscectomy 12/28/2015 1 10/20/2022 Lumbar radiculitis 12/13/2015 3 Osteoarthrosis, localized, p rimary, involving lower leg 03/30/2015 08/19/2023 Overview: ICD-10 update of inactive term ICD-10 update of inactive term HTN, goal below 130/80 04/27/201404/16 Statin intolerance 04/27/2014 3 Chronic ischemic heart disease 10/28/2013 08/19/2023 Osteoarthritis of hand 06/09/201308/19 Opioid use agreement exists 08/07/2011 08/19/2023 BENIGN NEOPLASM LG BOWEL 08/14/200610/2018 Overview: Colonoscopy 08/04/06--adenomatous--repeat 5 years ADVANCE DIRECTIVE INFORMATION 05/29/2005 08/19/2023 Overview: Patient does not have an advance directive. Information booklet given to patient. Other ventral hernia without mention of obstruction or gangrene 08/16/2002 12/15/2018 documented as of this encounter (statuses as of 01/07/2024) Immunizations Name Administration Dates Next Due COVID-19 mRNA, LNP-s, No Pre serve, 2-Dose Series (i-marker) 12/07/2020,11/16/2020 COVID-19, LNP-s, No Preserve , Justice-sucrose, Ages 12+ (i-marker) 01/04/2022 Covid-19, Mrna, Lnp-s, Pf, B ivalent, 30 Mcg, IM, 12 yrs and above (Pfizer) 10/11/2022 Pneumococcal Conjugate Vacc, 13 Valent (Prevnar) 09/29/2012 Pneumococcal Conjugate Vacci ne, 20-valent ([id number]) 08/13/2023 Pneumococcal Polysaccharide PPV23 (Pneumovax) 06/07/2015 Season Influenza, Cell Cultu re, 18+ Yrs, With Preserv (Flucelvax) 06/07/2015 Season Influenza, Quad, PF, Adjuvanted, 65+ Yrs, IM (FLUAD) 07/31/2020 Seasonal Influenza, PF, 6 M & above, IM , (FluLaval or Fluzone) 06/29/2018 Seasonal Influenza, Quadriva lent Hd (Fluzone Hd) 07/21/2023,07/16/2022,05/29/2021 Seasonal Influenza, Quadriva lent, No Preserve, IM 05/22/2017,08/07/2016 Seasonal Influenza, Split, I IV3, With Preserve, Inj 06/22/2014,07/16/2013,09/21/2012 Seasonal Influenza, Trivalen t, Adjuvanted, 65+ yrs 06/04/2019 TDAP (age 10 and older)(Boostrix) 11/28/2023 TDAP (age 11 and older)(Adacel) 10/05/2012 Varicella Zoster Vaccine (Adult) 10/28/2011 Zoster Vaccine Recombinant (Shingrix) 10/20/2020 ,08/18/2020 documented as of this encounter Social History Tobacco Use Types Packs/Day Years Used Date Smoking Tobacco: Never Smokeless Tobacco: Never Alcohol Use Standard Drinks/Week Comments No 0 (1 standard drink = 0.6 oz pur e alcohol) PHQ-2 Answer Date Recorded PHQ Adult Total Score 0 08/20/2023 Hunger Vital Sign Answer Date Recorded Within the past 12 months, y ou worried that your food would run out before you got the money to buy more. Never true 08/20/20 23 Within the past 12 months, t he food you bought just didn't last and you didn't have money to get more. 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 K22.711 HTN, goal below 140/90 I10 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 Controlled substance agreement signed Z79.899 Chronic pain G89.29 Dyslipidemia E78.5 Atherosclerosis of aorta (HCC) I70.0 Pleural plaque due to asbestos exposure J92.0 ILD (interstitial lung disease) (HCC) J84.9 Coronary artery disease involving um[place]illa tribe coronary artery of [place] tribe heart without angina pectoris I25.10 Spinal cord stimulator status Z96.89 Old myocardial infarct I25.2 Lumbar degenerative disc disease M51.36 Generalized osteoarthritis M15.9 Overweight (BMI 25.0-29.9) E66.3 Organic erectile dysfunction N52.9 Oxygen dependent Z99.81 ACE (obstructive sleep apnea) G47.33 Current Outpatient Medications Medication Sig Dispense Refill MULTIVITAMINS PO CAPS 1 daily TYLENOL 325 MG PO TABS Take 2 Tablets by mouth every 6 hours as needed. Red Yeast Rice 600 MG TABS Tablet Take 1 Tablet by mouth in the morning and 1 Tablet before bedtime. NITROSTAT 0.4 MG SUBL As needed (Patient not taking: Reported on 11/27/2023) CYANOCOBALAMIN (VITAMIN B-12) 100 MCG Tablet Take [...] by mouth daily as needed for Constipation. (Patient not taking: Reported on 11/27/2023) 255 g 0 CPAP every night at bedtime. (Patient not taking: Reported on 11/27/2023) Sennosides 8.6 MG Oral Tablet (Senokot) Take by mouth 1 Tablet in the morning. For constipation. 15Tablet 0 Sildenafil Citrate 50 MG Oral Tablet Take 1/2 to 1 tablet by mouth 30 minutes prior to intercourse as needed for erectile dysfunction. 30 Tablet 2 Finasteride 5 MG Oral Tablet (Proscar) TAKE ONE TABLET BY MOUTH DAILY 90 Tablet 3 metFORMIN HCl ER 500 MG Oral Tablet Extended Release 24 Hour (Glucophage XR) TAKE ONE TABLET BY MOUTH TWICE DAILY WITH MEALS 180 Tablet 1 Albuterol Sulfate HFA 108 (90 Base) MCG/ACT Inhalation Aerosol Solution INHALE 2 PUFFS BY MOUTH 4 TIMES DAILY 18 g 1 Dapsone 25 MG Oral Tablet TAKE 2 TABLETS BY MOUTH DAILY NEEDED FOR ITCHING 60 Tablet 2 tiZANidine HCl 2 MG Oral Tablet (Zanaflex) Take 1 Tablet by mouth 2 times a day as needed for Muscle spasms. 60 Tablet 1 DULoxetine HCl 60 MG Oral Capsule Delayed Release Particles (Cymbalta) TAKE 1 CAPSULE BY MOUTH IN THE MORNING 90 Capsule 3 guaiFENesin ER 600 MG Oral Tablet Extended Release 12 Hour (Mucinex) Take 1 Tablet by mouth 2 timesa day as needed for Congestion. Take with plenty of water. Do not cut, crush or chew (Patient not taking: Reported on 09/23/2023) 40 Tablet 2 Ezetimibe 10 MG Oral Tablet (Zetia) TAKE ONE TABLET (10MG) BY MOUTH DAILY 90 Tablet 1 Lisinopril 5 MG Oral Tablet (Prinivil) TAKE 1 TABLET BY MOUTH IN THE EVENING. 90 Tablet 3 Isosorbide Mononitrate ER 30 MG Oral Tablet Extended Release 24 Hour (Imdur) take 1 tablet (30 mg) orally daily 30 Tablet 5 Nitroglycerin 0.4 MG Sublingual Tablet Sublingual (Nitrostat) dissolve one tablet (0.4 MG) sublingually every 5 minutes As Needed for chest pain (Patient not taking: Reported on 11/27/2023) 25 Tablet 5 Boostrix 5-2.5-18.5 LF-MCG/0.5 Suspension Prefilled Syringe (Kmemtkb-Zcjuef-Llakq Pertussis) Injectinto a large muscle as directed 0.5 mL 0 Pantoprazole Sodium 40 MG Oral Tablet Delayed Release (Protonix) Take 1 Tablet by mouth in the morning. 90 Tablet 1 Ondansetron HCl 4 MG Oral Tablet Take 1 Tablet by mouth every 6 hours as needed for Nausea. 30 Tablet 0 HYDROcodone-Acetaminophen 10-325 MG Oral Tablet Take 1 Tablet by mouth every 6 hours as needed for Other (pain). 120 Tablet 0 Current Facility-Administered Medications Medication Dose Route Frequency Provider Last Rate Last Admin Albuterol Sulfate (Proventil) (2.5 MG/3ML) 0.083% inhalation solution 2.5 mg 2.5 mg Nebulizer Deondre Farfan MD Albuterol Sulfate (Proventil) (5 MG/ML) 0.5% *conc* inhalation solution 2.5 mg 2.5 mg Nebulizer Deondre Grier MD 2.5 mg at 11/27/23 0846 Hemoglobin AIC Results: Lab Results Component Value Date/Time HEMOGLOBIN A1C - [facility] 6.5 (H) 03/31/2023 08:58 AM HEMOGLOBIN A1C - [facility] 6.2 (H) 03/20/2022 09:53 AM HEMOGLOBIN A1C - [facility] 8.1 (H) 11/22/2021 03:48 PM HEMOGLOBIN A1C - [facility] 6.0 (H) 03/23/2019 07:31 AM PE: Tender to palpation medial joint line on the left, 3+ effusion on the left Assessment and Plan: He would like to preschedule for Gelsyn series in the late summer. See procedure note. Primary osteoarthritis of left knee (Primary) - POINT OF CARE US MAJOR JOINT INJECTION, ORTHO - lidocaine 1% 1 mL - triamcinolone acetonide 40 mg/mL 1 mL inj 2 mL Effusion of left knee - POINT OF CARE US MAJOR JOINT INJECTION, ORTHO - lidocaine 1% 1 mL - triamcinolone acetonide 40 mg/mL 1 mL inj 2 mL Wilfredo Vázquez DO Primary Care Sports Medicine Orthopaedics [facility] [address] [place] [address] Procedure note (knee injection and aspiration), left [...] Skin sterilized with alcohol swab. Knee aspirated 1.5 inch, 18 gauge needle from superior lateral approach 9 mL of straw fluid. Then knee injected with lidocaine 1% 1 mL -triamcinolone acetonide 40 mg/mL 1 mL inj 2 [...] documented in this encounter Nursing Notes * Elly Huynh MED ASSIST - 01/07/2024 9:21 AM EDT Follow up Patient Follow up: Knee Side: Left Date of last visit: Improvement since last office visit: 0 percent. Prior Treatment: Injection Here for Test Results: No Goals for this appointment: inj documented in this encounter Plan of Treatment Upcoming Encounters Date Type Department Care Team (Late st Contact Info) Description 01/19/2024 8:00 AM EDT Hospital Encounter OR [facility], Operating Room [facility] [address] [place] [phone] Kevon Vela, [address] [place] [phone] 01/19/2024 8:00 AM EDT - 01/19/2024 8:25 AM EDT Surgery OR [facility], Operating Room [facility] [address] [place] [phone] Kevon Vela DO [address] [place] [phone] L-/S-SPINE PARAVERTEBRAL FACET INJ, 1 LEVEL 01/20/2024 11:00 AM EDT Scheduled Telephone Interventional Pain Center, [facility] [address] [place] [address] Rafael, Nurse Phone Call Interventional Pain [facility] [address] [place] [address] 01/28/2024 8:30 AM EDT Office Visit Orthopaedics [facility] [address] [place] [phone] Wilfredo Vázquez, DO [address] [place] [address] 03/01/2024 1:00 PM EDT Imaging Radiology [facility] 1st Floor, [facility] [address] [place] [address] 04/07/2024 8:15 AM EDT Office Visit Orthopaedics [facility] [address] [place] [address] Wilfredo Vázquez, DO [address] [place] [address] 04/14/2024 8:15 AM EDT Office Visit Orthopaedics [facility] [address] [place] [address] Wilfredo Vázquez, DO [address] [place] [address] 04/21/2024 8:15 AM EDT Office Visit [facility] [address] [place] [address] Wilfredo Vázquez, DO [address] [place] [address] 05/03/2024 12:00 PM EDT Office Visit Family Practice [facility] [address] [place] [address] Manav De La Vega, DO [address] [place] [address] Scheduled Procedures Name Priority Associated Diagnoses Date/Ti me L-/S-SPINE PARAVERTEBRAL FACET INJ, 1 LEVEL Spondylosis of lumbar region without myelopathy or radiculopathy 01/19/2024 8:00 AM EDT L-/S-SPINE PARAVERTEBRAL FACET INJ, 2 LEVELS Spondylosis of lumbar region without myelopathy or radiculopathy 01/19/2024 8:00 AM EDT COLONOSCOPY FLEXIBLE PROXIMAL DIAGNOSTIC Recall History of colon polyps Health Maintenance Due Date Last Done Comments Nash's Esophagus Surveilance 10/13/2022 10/13/2019, 10/13/2019, 08/26/2017, Additional history exists COVID-19 Vaccine ( season) 2023 10/11/2022, 01/04/2022, 12/07/2020, Additional history exists GFR 03/31/2024 03/31/2023, 07/0 02/2022, 02/09/2022, Additional history exists Depression Screening 08/20/2024 08/20/2023 Albumin/Creatinine Ratio 03/31/2026 03/31/2023 DTaP,Tdap,and Td Vaccines (3 - Td or Tdap) 11/27/2033 11/28/2023, 10/05/2012 COLONOSCOPY-EVERY 5 YRS AGES 18-100 Discontinued 12/17/2016, 12/17/2016, 02/28/2011, Additional history exists Zoster Vaccines Completed 10/20/2020, 1212/2019, 10/28/2011 Diabetic Eye Exam Discontinued 06/24/2023, , 06/11/2023, Additional history exists Influenza Vaccine (FLU shot) Completed 07/21/2023, 07/16/2022, 05/29/2021, Additional history exists Pneumococcal Vaccine: 65+ Years Completed 08/13/2023, 06/07/2015, 09/29/2012 GARDASIL-HPV IMMUNIZATION SERIES Aged Out No longer eligible based on patient's age to complete this topic Hepatitis B Aged Out No longer eligi ble based on patient's age to complete this topic MENINGOCOCCAL (MENACTRA/MENVEO) Aged Out No longer eligible based on patient's age to complete this topic documented as of this encounter Medical Devices Implanted Type Area Extractor Loader And Unloader Device Identifier Shelf Expiration Date Model / Serial / Lot 15cm X 20cm Xenmatrix Surgical Graft, Rectangle Implanted:Qty: 1 on 01/29/2022 [place] [facility] [place]/A: Abdomen CR BARD : DAVOL [id number] 09/11/2022 [id number] / [id number] / [id number] Trial Lead Kit 50 Cm 16 Contact Implanted:Qty: 1 on 10/20/2017 by Gloria Pardo MD at OR [facility] N/A: Spine Thoracic [employer] : PAIN MGMT 08/08/2019 SC-2316-5 0E / [id number] / Description:T9, 10,11 Avista Mri 58 Cm 8 Contact Lead Kit Implanted:Qty: 1 on 12/01/2017 by Gloria Pardo MD at OR [facility] N/A: Back [employer] : PAIN MGMT 06/17/2019 IN-2408-5 6 / [id number] / Avista Mri 56 Cm 8 Contact Lead Kit Implanted:Qty: 1 on 12/01/2017 by Gloria Pardo MD at OR [facility] N/A: Back [employer] : PAIN MGMT 06/17/2019 IN-2408-5 6 / [id number] / Pulse Generator Kit Implanted:Qty: 1 on 12/01/2017 by Gloria Pardo MD at OR [facility] N/A: Back [employer] : PAIN MGMT 08/21/2019 SC-1200 / [id number] / Fixate Suturing Device Implanted:Qty: 1 on 12/01/2017 by Gloria Pardo MD at OR [facility] N/A: [facility] [employer] : PAIN MGMT 09/25/2021 -201-01 / / [id number] Clik X Mri [place] Implanted:Qty: 1 on 12/01/2017 by Gloria Pardo MD at OR [facility] N/A: [facility] [employer] : PAIN MGMT 07/15/2019 IN-4319 / / [id number] Generator Implantable Pulse - [id number] - [id number] Implanted:Qty: 1 on 05/02/2020 by Gloria Pardo MD at OR [facility] N/A: [facility] [employer] : PAIN MGMT 07/27/2021 [id number] / [id number] / Device Fixate Suturing - [id number] Implanted:Qty: 1 on 05/02/2020 by Gloria Pardo MD at OR [facility] N/A: [facility] mywaves [facility] 03/21/2024 [id number] / / [id number] Avista Mri 56cm 8 Contact Lead Kit Implanted:Qty: 1 on 05/02/2020 by Gloria Pardo MD at OR [facility] N/A: Back [employer] : PAIN MGMT 08/05/2021 [facility] [id number] 6 / [id number] / [id number] Avista Mri 56cm 8 Contact Lead Kit Implanted:Qty: 1 on 05/02/2020 by Gloria Pardo MD at OR [facility] N/A: Back mywaves : PAIN MGMT 08/15/2021 SC-2408-5 6 [id number] / [id number] Clik X Mri [place] Implanted:Qty: 1 on 05/02/2020 by Gloria Pardo MD at OR [facility] N/A: Back [employer] : PAIN MGMT 04/04/2022 IN-4319 / / [id number] Trisha [place] [id number] - [id number] Implanted:Qty: 1 on 02/08/2022 at [facility] COOK : DIAGNOSTIC INTERVENTION [id number] 10/10/2024 [id number] / / [id number] documented as of this encounter Procedures Procedure Name Priority Date/Time Associated Diagnosis Comments POINT OF CARE US MAJOR JOINT INJECTION, ORTHO Routine 01/07/2024 8:23 AM EDT Primary osteoarthritis of left knee Effusion of left knee documented in this encounter Results * POINT OF CARE US MAJOR JOINT INJECTION, ORTHO (01/07/2024 8:23 AM EDT) Anatomical Region Laterality Modality Musculoskeletal Radiographic Liz ging 01/07/2024 8:23 AM EDT Narrative 01/07/2024 9:35 AM EDT Patient Name: TERRANCE LEVY : 1940 (83y) Male Performing Provider: Wilfredo Vázquez (digitally signed Jan 07, 2024 09:35 EDT) Attending: Wilfredo Vázquez (digitally signed Jan 07, 2024 09:35 EDT) [Impression] : Procedure note (knee injection and aspiration), left : Time out:Prior to injection, a [...] Skin sterilized with alcohol swab. Knee aspirated 1.5 inch, 18 gauge needle from superior lateral approach 9 mL of straw fluid. Then knee injected with lidocaine 1% 1 mL - triamcinolone acetonide [...] resolve within 24 hours. Wilfredo Vázquez DO Procedure Note Wilfredo Vázquez DO - 01/07/2024 Patient Name: TERRANCE LEVY : 1940 (83y) Male Performing Provider: Wilfredo Vázquez (digitally signed Jan 07, 2024 09:35EDT) Attending: Wilfredo Vázquez (digitally signed Jan 07, 2024 09:35 EDT) [Impression] : Procedure note (knee injection and aspiration), left : Timeout:Prior to injection, a time out was called to confirm theadministration of appropriate medicine, patient name, procedure andconfirm to the best of our ability and knowledge the presence of anynecessary risks and benefits. Patient verbalizes understanding.Ultrasound utilized to guide injectionUltrasound required due to high riskfor complications without ultrasound guideance (risk for neurovasculardamage) and need to visualize specific joint recess. Reviewed benefitsincluding potential pain reduction and improved function as well as risksincluding worsening pain or infection in detail with patient and patientverbalizes understanding. Sterile techinique applied. Skin sterilizedwith alcohol swab. Knee aspirated 1.5 inch, 18 gauge needle from superiorlateral approach 9 mL of straw fluid. Then knee injected withlidocaine 1% 1 mL - triamcinolone acetonide 40 mg/mL 1 mL inj 2 mL Patient tolerated procedure with no significant bleeding or adversereaction. Patient instructed to call or return to clinic for fever orwarmth and redness at injection site for potential infection. Patientalso advised as to potential for steroid flare reaction includingincreased pain and redness at injection site which should be treated withice and resolve within 24 hours. Wilfredo Vázquez DO Wilfredo Vázquez DO RAD ULTRASOUND documented in this encounter Visit Diagnoses Diagnosis Primary osteoarthritis of left knee- Primary Primary localized osteoarthrosis, lower leg Effusion of left knee Effusion of lower leg joint Spondylosis of lumbar region without myelopathy or radiculopathy Lumbosacral spondylosis without myelopathy documented in this encounter Administered Medications Inactive Administered Medications - up to 3 most recent administrations Medication Order MAR Action Action Date Dose Rate Site lidocaine 1% 1 mL - triamcinolone acetonide 40 mg/mL 1 mL inj 2 mL 2 mL, Injection, ONCE, On Fri01/07/24 at 1000, For 1 dose, Lidocaine 1% 1mL Triamcinolone Acetonide 40 mg/mL 1 mL (Final concentration = 20 mg/mL) REFRIGERATE and SHAKE WELL Given 01/07/2024 9:41 AM EDT 2 mL Knee Left documented in this [...] the patient have Health Care Power of Baggage Screener? No Full Code 12/13/2015 11:19 AM 12/16/2015 5:05 PM This order reflects the patients wishes and were consensually agreed upon. Question Answer Comments Discussion of Advance Directives occurred with: Patient Does the patient have a Living Will? No Does the patient have Health Care Power of Baggage Screener? No Healthcare Agents on File Name Relationship Healthcare Agent Relationshi p Communication Manfred Levy Adult Child Health Care Repr esentative (appointed verbally by patient or by statute hierarchy) Care Teams Trade Mark Examiner Relationship Specialty Start Date End Date Manav De La Vega DO [address] [place] [address] PCP - General Family Medicine 04/16/18 documented as of this encounter
--- OUTSIDE RECORDS SUMMARY | 2024-01-09 19:33 | External Medical Summary | Summary of Care ---
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 angina pectoris 11/22/2021 Pleural plaque [...] mRNA, LNP-s, No Pre serve, 2-Dose Series ([employer]) 12/07/2020,11/16/2020 COVID-19, LNP-s, No Preserve , Justice-sucrose, Ages 12+ ([employer]) 01/04/2022 Covid-19, Mrna, Lnp-s, Pf, B ivalent, 30 Mcg, IM, 12 yrs and above (Pfizer) 10/11/2022 Pneumococcal Conjugate Vacc, 13 Valent (Prevnar) 09/29/2012 Pneumococcal Conjugate Vacci ne, 20-valent ([id number]) 08/13/2023 Pneumococcal Polysaccharide PPV23 (Pneumovax) 06/07/2015 Season [...] 01/07/2024 9:30 AM EDT Terrance Pendleton Levy [id number] Terrance Levy is a 83 year old male [...] disease) (HCC) J84.9 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 I25.10 Spinal cord [...] 5 Boostrix 5-2.5-18.5 LF-MCG/0.5 Suspension Prefilled Syringe (Zlagqlp-Csqudr-Uzgvg Pertussis) Injectinto a large muscle as directed [...] Vázquez DO Primary Care Sports Medicine Orthopaedics [facility] [address] [facility] [place] [address] Procedure note (knee injection and aspiration), left [...] Room [facility] [address] [place] [address] Kevon Vela, [address] [place] [address] 01/19/2024 8:00 AM EDT - 01/19/2024 8:25 AM EDT Surgery OR [facility], Operating Room [facility] [address] [place] [address] Kevon Vela DO [address] [place] [id number] L-/S-SPINE PARAVERTEBRAL FACET INJ, 1 LEVEL 01/20/2024 11:00 AM EDT Scheduled Telephone Interventional Pain Center, [facility] [address] [place] [address] Rafael, Nurse Phone Call Interventional Pain [facility] [address] [place] [address] 01/28/2024 8:30 AM EDT Office Visit Orthopaedics [facility] [address] [place] [address] Wilfredo Vázquez, DO [address] [place] [address] 03/01/2024 1:00 PM EDT Imaging Radiology [facility] 1st Floor, [place] [address] [place] [address] 04/07/2024 8:15 AM EDT Office Visit Orthopaedics [facility] [address] [place] [address] Wilfredo Vázquez, DO [address] [place] [address] 04/14/2024 8:15 AM EDT Office Visit Orthopaedics [facility] [address] [place] [address] Wilfredo Vázquez, DO [address] [place] [address] 04/21/2024 8:15 AM EDT Office Visit [facility] [address] [place] [address] Wilfredo Vázquez, DO [address] [place] [address] 05/03/2024 12:00 PM EDT Office Visit Family Practice [facility] [address] [place] [address] Manav De La Vega, DO [address] [place] [address] Scheduled Procedures Name Priority Associated Diagnoses Date/Ti [...] this encounter Medical Devices Implanted Type Area Wire Brusher Device Identifier Shelf Expiration Date Model / Serial / Lot 15cm X 20cm Xenmatrix Surgical Graft, Rectangle Implanted:Qty: 1 on 01/29/2022 by Tom Broderick MD at OR [facility] Graft N/A: Abdomen CR BARD : DAVOL [id number] 09/11/2022 [id number] / [id number] / [id number] Trial Lead Kit 50 Cm 16 Contact Implanted:Qty: 1 on 10/20/2017 by Gloria Pardo MD at OR [facility] N/A: Spine Thoracic [employer] : PAIN MGMT 08/08/2019 SC-2316-5 0E / [id number] / Description:T9, 10,11 Avista Mri 58 Cm 8 Contact Lead Kit Implanted:Qty: 1 on 12/01/2017 by Gloria Pardo MD at OR [facility] N/A: Back [employer] : PAIN MGMT 06/17/2019 WI-2408-5 6 / [id number] / Avista Mri 56 Cm 8 Contact Lead Kit Implanted:Qty: 1 on 12/01/2017 by Gloria Pardo MD at OR [facility] N/A: Back [employer] : PAIN MGMT 06/17/2019 WI-2408-5 6 / [id number] / Pulse Generator Kit Implanted:Qty: 1 on 12/01/2017 by Gloria Pardo MD at OR [facility] N/A: Back [employer] : PAIN MGMT 08/21/2019 SC-1200 / [id number] / Fixate Suturing Device Implanted:Qty: 1 on 12/01/2017 by Gloria Pardo MD at OR [facility] N/A: [facility] [employer] : PAIN MGMT 09/25/2021 -201-01 / / [id number] Clik X Mri [place] Implanted:Qty: 1 on 12/01/2017 by Gloria Pardo MD at OR [facility] N/A: [facility] [employer] : PAIN MGMT 07/15/2019 WI-4319 / / [id number] Generator Implantable Pulse - [id number] - [id number] Implanted:Qty: 1 on 05/02/2020 by Gloria Pardo MD at OR [facility] N/A: [facility] SCIENTIFIC : PAIN MGMT 07/27/2021 [id number] 00 / [id number] / Device Fixate Suturing - [id number] Implanted:Qty: 1 on 05/02/2020 by Gloria Pardo MD at OR [facility] N/A: [facility] Acturis [facility] 03/21/2024 [id number] / / [id number] Avista Mri 56cm 8 Contact Lead Kit Implanted:Qty: 1 on 05/02/2020 by Gloria Pardo MD at OR [facility] N/A: Back [employer] : PAIN MGMT 08/05/2021 [facility]2408-5 6 / [id number] / [id number] Avista Mri 56cm 8 Contact Lead Kit Implanted:Qty: 1 on 05/02/2020 by Gloria Pardo MD at OR [facility] N/A: Back [employer] : PAIN MGMT 08/15/2021 SC-2408-5 6 [id number] / [id number] Clik X Mri [place] Implanted:Qty: 1 on 05/02/2020 by Gloria Pardo MD at OR [facility] N/A: Back [employer] : PAIN MGMT 04/04/2022 WI-4319 / / [id number] Trisha Thornton [id number] - [id number] Implanted:Qty: 1 on 02/08/2022 at [facility] COOK : DIAGNOSTIC INTERVENTION [id number] 10/10/2024 [id number] / / [id number] documented as of this encounter Procedures Procedure [...] the patient have Health Care Power of Automatic Coin Machine Mechanic? No Full Code 12/13/2015 11:19 AM 12/16/2015 5:05 PM This order reflects the patients wishes and were consensually agreed upon. Question Answer Comments Discussion of Advance Directives occurred with: Patient Does the patient have a Living Will? No Does the patient have Health Care Power of Automatic Coin Machine Mechanic? No Healthcare Agents on File Name Relationship Healthcare Agent Relationshi p Communication Manfred Levy Adult Child Health Care Repr esentative (appointed verbally by patient or by statute hierarchy) Care Teams Bank Appraiser Relationship Specialty Start Date End Date Manav De La Vega DO [address] [place] [address] PCP - General Family Medicine 04/16/18 documented as of this encounter
--- OUTSIDE RECORDS SUMMARY | 2024-01-09 19:34 | External Medical Summary | Summary of Care ---
Author Name Unknown Organization [facility] Address [address] [facility] [place] [address] Phone [phone] Care Team Providers Care Carburetor Repairer Name Role Phone Manav De La Vegaadeline Primary Care Provider Reason for Visit * Reason Comments Knee Pain Left Encounter Details Date Type Department Care Team (Latest Contact Info) Description 01/07/2024 9:30 AM EDT Office Visit Orthopaedics [facility] [address] [place] [address] Wilfredo Vázquez DO [address] [place] [address] Primary osteoarthritis of left knee*; Effusion of [...] status 11/21/2022 Coronary artery disease invo lving upper si[place] coronary artery of upper [place] heart without angina pectoris 11/22/2021 Pleural plaque [...] mRNA, LNP-s, No Pre serve, 2-Dose Series ([employer]) 12/07/2020,11/16/2020 COVID-19, LNP-s, No Preserve , Justice-sucrose, Ages 12+ ([employer]) 01/04/2022 Covid-19, Mrna, Lnp-s, Pf, B ivalent, 30 Mcg, IM, 12 yrs and above (Pfizer) 10/11/2022 Pneumococcal Conjugate Vacc, 13 Valent (Prevnar) 09/29/2012 Pneumococcal Conjugate Vacci ne, 20-valent ([id number]) 08/13/2023 Pneumococcal Polysaccharide PPV23 (Pneumovax) 06/07/2015 Season [...] 01/07/2024 9:30 AM EDT Terrance Pendleton Levy [id number] Terrance Levy is a 83 year old [...] disease) (HCC) J84.9 Coronary artery disease involving upper si[place] coronary artery of upper [place] heart without angina pectoris I25.10 Spinal cord [...] 5 Boostrix 5-2.5-18.5 LF-MCG/0.5 Suspension Prefilled Syringe (Loutyxx-Nxxify-Lovea Pertussis) Injectinto a large muscle as directed [...] Vázquez DO Primary Care Sports Medicine Orthopaedics [facility] [address] [facility] [place] [address] Procedure note (knee injection and aspiration), left [...] Care Team (Late st Contact Info) Description 01/07/2024 9:45 AM EDT Imaging Radiology [place] [address] [place], [place] [address] Arrived 01/19/2024 8:00 AM EDT Hospital Encounter OR [facility], Operating Room [facility] [address] [place] [address] Kevon Vela DO [address] [place] [address] 01/19/2024 8:00 AM EDT - 01/19/2024 8:25 AM EDT Surgery OR [facility], Operating Room [facility] [address] [place] [address] Kevon Vela, DO [address] [place] [address] L-/S-SPINE PARAVERTEBRAL FACET INJ, 1 LEVEL 01/20/2024 11:00 AM EDT Scheduled Telephone Interventional Pain Center, [facility] [address] [place] [address] Rafael, Nurse Phone Call Interventional Pain [facility] [address] [place] [address] 01/28/2024 8:30 AM EDT Office Visit Orthopaedics [facility] [address] [place] [address] Wilfredo Vázquez, DO [address] [place] [address] 03/01/2024 1:00 PM EDT Imaging [facility] [address] [place] [address] 04/07/2024 8:15 AM EDT Office Visit [facility] [address] [place] [address] Wilfredo Vázquez, DO [address] [place] [address] 04/14/2024 8:15 AM EDT Office Visit [facility] [address] [place] [address] Wilfredo Vázquez, DO [address] [place] [address] 04/21/2024 8:15 AM EDT Office Visit [facility] [address] [place] [address] Wilfredo Vázquez, DO [address] [place] [address] 05/03/2024 12:00 PM EDT Office Visit Family Practice [facility] [address] [place] [address] Manav De La Vega, DO [address] [place] [address] Scheduled Procedures Name Priority Associated Diagnoses Date/Ti [...] 12/07/2020, Additional history exists GFR 03/31/2024 03/31/2023, 02/2022, 02/09/2022, Additional history exists Depression Screening 08/20/2024 08/20/2023 Albumin/Creatinine Ratio 03/31/2026 03/31/2023 DTaP,Tdap,and Td Vaccines (3 - Td or Tdap) 11/27/2033 11/28/2023, 10/05/2012 COLONOSCOPY-EVERY 5 YRS AGES 18-100 Discontinued 12/17/2016, 12/17/2016, 02/28/2011, Additional history exists Zoster Vaccines Completed 10/20/2020, 12/2019, 10/28/2011 Diabetic Eye Exam Discontinued 06/24/2023, , [...] this encounter Medical Devices Implanted Type Area Director Franchise Sales Device Identifier Shelf Expiration Date Model / Serial / Lot 15cm X 20cm Xenmatrix Surgical Graft, Rectangle Implanted:Qty: 1 on 01/29/2022 by Tom Broderick MD at OR [facility] [place] [place] Graft N/A: Abdomen CR BARD : DAVOL [id number] 09/11/2022 [id number] / [id number] / [id number] Trial Lead Kit 50 Cm 16 Contact Implanted:Qty: 1 on 10/20/2017 by Gloria Pardo MD at OR [facility] N/A: Spine Thoracic [employer] : PAIN MGMT 08/08/2019 ID-2316-5 0E / [id number] / Description:T9, 10,11 Avista Mri 58 Cm 8 Contact Lead Kit Implanted:Qty: 1 on 12/01/2017 by Gloria Pardo MD at OR [facility] N/A: Back [employer] : PAIN MGMT 06/17/2019 ID-2408-5 6 / [id number] / Avista Mri 56 Cm 8 Contact Lead Kit Implanted:Qty: 1 on 12/01/2017 by Gloria Pardo MD at OR [facility] N/A: Back [employer] : PAIN MGMT 06/17/2019 ID-2408-5 6 / [id number] / Pulse Generator Kit Implanted:Qty: 1 on 12/01/2017 by Gloria Pardo MD at OR [facility] N/A: Back [employer] : PAIN MGMT 08/21/2019 ID-1200 / [id number] / Fixate Suturing Device Implanted:Qty: 1 on 12/01/2017 by Gloria Pardo MD at OR [facility] N/A: Back [employer] : PAIN MGMT 09/25/2021 FB-201- / / [id number] Clik X Mri [place] Implanted:Qty: 1 on 12/01/2017 by Gloria Pardo MD at OR [facility] N/A: Back [employer] : PAIN MGMT 07/15/2019 ID-4319 / / [id number] Generator Implantable Pulse - [id number] - [id number] Implanted:Qty: 1 on 05/02/2020 by Gloria Pardo MD at OR [facility] N/A: Back [employer] : PAIN MGMT 07/27/2021 [id number] 00 / [id number] / Device Fixate Suturing - [id number] Implanted:Qty: 1 on 05/02/2020 by Gloria Pardo MD at OR [facility] N/A: Back [employer] 03/21/2024 [id number] 010 / / [id number] Avista Mri 56cm 8 Contact Lead Kit Implanted:Qty: 1 on 05/02/2020 by Gloria Pardo MD at OR [facility] N/A: Back [employer] : PAIN MGMT 08/05/2021 ID-2408-5 6 / [id number] / [id number] Avista Mri 56cm 8 Contact Lead Kit Implanted:Qty: 1 on 05/02/2020 by Gloria Pardo MD at OR [facility] N/A: Back [employer] : PAIN MGMT 08/15/2021 ID-2408-5 6 [id number] / [id number] Clik X Mri [place] Implanted:Qty: 1 on 05/02/2020 by Gloria Pardo MD at OR [facility] N/A: Back [employer] : PAIN MGMT 04/04/2022 [id number] / / [id number] Cath Ryan Thornton [id number] - [id number] Implanted:Qty: 1 on 02/08/2022 at [facility] COOK : DIAGNOSTIC INTERVENTION [id number] 10/10/2024 [id number] / / [id number] documented as of this encounter Procedures Procedure [...] Vázquez DO - 01/07/2024 Patient Name: TERRANCE LVEY : 1940 (83y) Male Performing Provider: Wilfredo [...] the patient have Health Care Power of Cooler Room Worker? No Full Code 12/13/2015 11:19 AM 12/16/2015 5:05 PM This order reflects the patients wishes and were consensually agreed upon. Question Answer Comments Discussion of Advance Directives occurred with: Patient Does the patient have a Living Will? No Does the patient have Health Care Power of Cooler Room Worker? No Healthcare Agents on File Name Relationship Healthcare [facility] Communication Manfred Levy Adult Child Health Care Repr esentative (appointed verbally by patient or by statute hierarchy) Care Teams Carburetor Repairer Relationship Specialty Start Date End Date Manav De La Vega DO [address] [place] [address] PCP - General Family Medicine 04/16/18 documented as of this encounter
--- OUTSIDE RECORDS SUMMARY | 2024-01-09 19:34 | External Medical Summary | Summary of Care ---
Author Name Unknown Organization [facility] Address [address] [place] [address] Phone [phone] Care Team Providers Care Personal Driver Name Role Phone Manav De La Vega Primary Care Provider Reason for Visit * Reason Onset Date Comments Test Results 12/22/2023 6MW Encounter Details Date Type Department Care Team (Late st Contact Info) Description 12/22/2023 Telephone Pulmonary Medicine, [facility] [address] [place] [address] Deondre Grimes MD [address] [facility] [place] [address] Test Results (6MW) Allergies Active Allergy Reactions Criticality Noted Date Comments Codeine Itching 05/20/2012 adverse reactions In large amounts only Gluten Itching 05/29/2005 Breaking out in blisters Gluten Meal Low 11/28/2022 Other reaction(s): rash Iodine Itching 02/28/2011 oral Atorvastatin Calcium Muscle pain 02/21/2014 Meloxicam Renal complications Medium 09/24/2017 Penicillins Rash 08/16/2002 Tramadol Hcl 08/07/2011 Bad stomach problems documented as of this encounter (statuses as of 12/22/2023) Medications Medication Sig Dispensed Refills Start Date [...] Additional Information Patient not taking.Reported on 11/27/2023 HYDROcodone-Acetami nophen 10-325 MG Oral TabletIndications:L umbar radiculitis Take 1 Tablet by mouth every 6 hours as needed for Other (pain). 120 Tablet 0 11/25/2023 Active Pantoprazole Sodium 40 MG Oral Tablet Delayed Release (Protonix)Indicatio ns:High grade dysplasia of Nash's epithelium Take 1 Tablet by mouth in the morning. 90 Tablet 1 12/10/2023 Active Ondansetron HCl 4 MG Oral Tablet Take 1 Tablet by mouth every 6 hours as needed for Nausea. 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 dependent 08/20/2023 ACE (obstructive sleep apnea) 08/20/2023 Lumbar degenerative disc disease 08/19/2023 Generalized osteoarthritis 08/19/2023 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 11/21/2022 Coronary artery disease invo lving [place] coronary artery of [place] heart without angina pectoris 11/22/2021 Pleural plaque [...] as of this encounter (statuses as of 12/22/2023) Resolved Problems Problem Noted Date Diagnosed Date [...] Per Prediabetes protocol History of colon polyps 12/15/201801/2023 Systolic ejection murmur 04/16/201801/2023 S/P lumbar fusion [...] as of this encounter (statuses as of 12/22/2023) Immunizations Name Administration Dates Next Due COVID-19 mRNA, LNP-s, No Pre serve, 2-Dose Series (doxo) 12/07/2020,11/16/2020 COVID-19, LNP-s, No Preserve , Justice-sucrose, Ages 12+ (Pfizer) 01/04/2022 Covid-19, Mrna, Lnp-s, Pf, B ivalent, 30 Mcg, IM, 12 yrs and above (Pfizer) 10/11/2022 Pneumococcal Conjugate Vacc, 13 Valent (Prevnar) 09/29/2012 Pneumococcal Conjugate Vacci ne, 20-valent ([id number]) 08/13/2023 Pneumococcal Polysaccharide PPV23 (Pneumovax) 06/07/2015 Season [...] encounter Miscellaneous Notes * Telephone Encounter - Monica Smith LPN - 12/22/2023 12:[address] Grimes's message sent to pt via detailed message left on his vm. * Telephone Encounter - Monica Smith LPN - 12/22/2023 11:34 AM EDT ----- Message from Deondre Grimes MD sent at 12/20/2023 5:38 PM EDT ----- You underwent exercise oximetry to assess your oxygen levels during activity. Results show NORMAL levels of oxygen while ambulating. No oxygen therapy is needed during physical activity. This communication is for informational purposes only. No action/intervention is needed at your end. Sincerely Dr. Grimes documented in this encounter Plan of Treatment Upcoming Encounters Date Type Department Care Team (Latest Contact Info) Description 01/19/2024 8:00 AM EDT Hospital Encounter OR [facility], Operating Room [facility] [place] [address] Kevon Vela, DO [address] [place] [address] 01/19/2024 8:00 AM EDT - 01/19/2024 8:25 AM EDT Surgery OR [facility], Operating Room [facility] [address] [place] [address] Kevon Vela, DO [address] [place] [address] L-/S-SPINE PARAVERTEBRAL FACET INJ, 1 LEVEL 01/28/2024 8:30 AM EDT Office Visit Orthopaedics [facility] [address] [place] [address] Wilfredo Vázquez, DO [address] [place] [address] 03/01/2024 1:00 PM EDT Imaging Radiology [facility]st [facility] [address] [place] [address] 05/03/2024 12:00 PM EDT Office Visit Family Practice [facility] [address] [place] [address] Manav De La Vega, DO [address] [place] [address] Scheduled Procedures Name Priority Associated Diagnoses Date/Ti [...] 08/26/2017, Additional history exists COVID-19 Vaccine ( - 2022- season) 2023 10/11/2022, 01/04/2022, 12/07/2020, [...] this encounter Medical Devices Implanted Type Area Learning And Development Consultant Device Identifier Shelf Expiration Date Model / Serial / Lot 15cm X 20cm Xenmatrix Surgical Graft, Rectangle Implanted:Qty: 1 on 01/29/2022 by Tom Broderick MD at OR [facility] [place] Graft N/A: Abdomen CR BARD : DAVOL [id number] 09/11/2022 [id number] / [id number] / [id number] Trial Lead Kit 50 Cm 16 Contact Implanted:Qty: 1 on 10/20/2017 by Gloria Pardo MD at OR [facility] N/A: Spine Thoracic [employer] : PAIN MGMT 08/08/2019 [facility] [place]2316-5 0E / [id number] / Description:T9, 10,11 Avista Mri 58 Cm 8 Contact Lead Kit Implanted:Qty: 1 on 12/01/2017 by Gloria Pardo MD at OR [facility] N/A: Back [employer] : PAIN MGMT 06/17/2019 [facility] [place]2408-5 6 / [id number] / Avista Mri 56 Cm 8 Contact Lead Kit Implanted:Qty: 1 on 12/01/2017 by Gloria Pardo MD at OR [facility] N/A: Back [employer] : PAIN MGMT 06/17/2019 [facility] [place]2408-5 6 / [id number] / Pulse Generator Kit Implanted:Qty: 1 on 12/01/2017 by Gloria Pardo MD at OR [facility] N/A: Back [employer] : PAIN MGMT 08/21/2019 CA-1200 / [id number] / Fixate Suturing Device Implanted:Qty: 1 on 12/01/2017 by Gloria Pardo MD at OR [facility] N/A: Back [employer] : PAIN MGMT 09/25/2021 -201-01 / / [id number] Clik X Mri [place] Implanted:Qty: 1 on 12/01/2017 by Gloria Pardo MD at OR [facility] N/A: Back [employer] : PAIN MGMT 07/15/2019 [facility] [place]4319 / / [id number] Generator Implantable Pulse - [id number] - [id number] Implanted:Qty: 1 on 05/02/2020 by Gloria Pardo MD at OR [facility] N/A: Back [employer] : PAIN MGMT 07/27/2021 [id number] / [id number] / Device Fixate Suturing - [id number] Implanted:Qty: 1 on 05/02/2020 by Gloria Pardo MD at OR [facility] N/A: Back [employer] 03/21/2024 [id number] / / [id number] Avista Mri 56cm 8 Contact Lead Kit Implanted:Qty: 1 on 05/02/2020 by Gloria Pardo MD at OR [facility] N/A: Back [employer] : PAIN MGMT 08/05/2021 CA-2408-5 6 [id number] / [id number] Avista Mri 56cm 8 Contact Lead Kit Implanted:Qty: 1 on 05/02/2020 by Gloria Pardo MD at OR [facility] N/A: Back [employer] : PAIN MGMT 08/15/2021 SC-2408-5 6 [id number] / [id number] Clik X Mri [place] Implanted:Qty: 1 on 05/02/2020 by Gloria Pardo MD at OR [facility] N/A: Back [employer] : PAIN MGMT 04/04/2022 CA-4319 / / [id number] Trisha Thornton [id number] - [id number] Implanted:Qty: 1 on 02/08/2022 at [facility] COOK : DIAGNOSTIC INTERVENTION [id number] 10/10/2024 [id number] / / [id number] documented as of this encounter Advance Directives [...] the patient have Health Care Power of Inspector And Tester? No Full Code 12/13/2015 11:19 AM 12/16/2015 5:05 PM This order reflects the patients wishes and were consensually agreed upon. Question Answer Comments Discussion of Advance Directives occurred with: Patient Does the patient have a Living Will? No Does the patient have Health Care Power of Inspector And Tester? No Healthcare Agents on File Name Relationship Healthcare Agent Relationshi p Communication Manfred Levy Adult Child Health Care Repr esentative (appointed verbally by patient or by statute hierarchy) Care Teams Personal Driver Relationship Specialty Start Date End Date Manav De La Vega DO [address] [place] [address] PCP - General Family Medicine 04/16/18 documented as of this encounter
--- OUTSIDE RECORDS SUMMARY | 2024-01-09 19:34 | External Medical Summary | Summary of Care ---
Author Name Unknown Organization [facility] Address [address] [facility] [place] [address] Phone [phone] Care Team Providers Care Deputy Manager Name Role Phone Anna De La Vega DO Primary Care Provider Reason for Visit * Reason Onset Date Comments Medication Refill 12/24/2023 Encounter Details Date Type Department Care Team (Late st Contact Info) Description 12/24/2023 Refill Family Practice [facility] [address] [place] [address] Anna De La Vega DO [address] [place] [address] Lumbar radiculitis Allergies Active Allergy Reactions Criticality [...] as of this encounter (statuses as of 12/24/2023) Medications Medication Sig Dispensed Refills Start Date [...] 02/04/2022 Active Sildenafil Citrate 50 MG Oral TabletIndications: [...] 08/28/2023 Active Lisinopril 5 MG Oral Tablet (Prinivil)Indicati [...] for Nausea. 30 Tablet 0 12/17/2023 Active HYDROcodone-Acetam inophen 10-325 MG Oral TabletIndications: Lumbar radiculitis Take 1 Tablet by mouth every 6 hours as needed for Other (pain). 120 Tablet 0 12/24/2023 Active HYDROcodone-Acetam inophen 10-325 MG Oral TabletIndications: Lumbar radiculitis Take 1 Tablet by mouth every 6 hours as needed for Other (pain). 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 Oxygen dependent 08/20/2023 ACE (obstructive sleep apnea) 08/20/2023 Lumbar degenerative disc disease 08/19/2023 Generalized osteoarthritis 08/19/2023 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 11/21/2022 Coronary artery disease invo lving [place] coronary artery of [place] heart without angina pectoris 11/22/2021 Pleural plaque [...] as of this encounter (statuses as of 12/24/2023) Resolved Problems Problem Noted Date Diagnosed Date [...] as of this encounter (statuses as of 12/24/2023) Immunizations Name Administration Dates Next Due COVID-19 mRNA, LNP-s, No Pre serve, 2-Dose Series (Digerati) 12/07/2020,11/16/2020 COVID-19, LNP-s, No Preserve , Justice-sucrose, Ages 12+ (Digerati) 01/04/2022 Covid-19, Mrna, Lnp-s, Pf, B ivalent, 30 Mcg, IM, 12 yrs and above (Pfizer) 10/11/2022 Pneumococcal Conjugate Vacc, 13 Valent (Prevnar) 09/29/2012 Pneumococcal Conjugate Vacci ne, 20-valent ([id number]) 08/13/2023 Pneumococcal Polysaccharide PPV23 (Pneumovax) 06/07/2015 Season [...] - Anna De La Vega DO - 12/24/2023 10:53 AM EDT Signed Prescriptions: Disp Refills HYDROcodone-Acetaminophen 10-325 MG Oral T*120 Ta*0 Sig: Take 1 Tablet by mouth every 6 hours as needed for Other (pain). Authorizing Provider: ANNA DE LA EVGA * Telephone Encounter - Reta Suarez LPN - 12/24/2023 8:15 AM EDT Pending Prescriptions: Disp Refills HYDROcodone-Acetaminophen 10-325 MG Oral *120 Ta*0 Sig: Take 1 Tablet by mouth every 6 hours as needed for Other (pain). 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 ILD (interstitial lung disease) ([facility]) J84.9 Coronary artery disease involving [place] coronary artery of [place] heart without angina pectoris I25.10 Spinal cord stimulator status Z96.89 Old myocardial infarct I25.2 Lumbar degenerative disc disease M51.36 Generalized osteoarthritis M15.9 Overweight (BMI 25.0-29.9) E66.3 Organic erectile dysfunction N52.9 Oxygen dependent Z99.81 ACE (obstructive sleep apnea) G47.33 Labs: Lab Results Component Value Date/Time CREAT [...] EDT Hospital Encounter OR [facility], Operating Room [facility] [address] [place] [address] Kevon Vela DO [address] [place] [address] 01/19/2024 8:00 AM EDT - 01/19/2024 8:25 AM EDT Surgery OR [facility], Operating Room [facility] [address] [place] [address] Kevon Vela DO [address] [place] [address] L-/S-SPINE PARAVERTEBRAL FACET INJ, 1 LEVEL 01/20/2024 11:00 AM EDT Scheduled Telephone Interventional Pain Center, [facility] [address] [place] [address] Rafael, Nurse Phone Call Interventional Pain [facility] [address] [place] [address] 01/28/2024 8:30 AM EDT Office Visit Orthopaedics [facility] [address] [place] [address] Wilfredo Vázquez, DO [address] [place] [address] 03/01/2024 1:00 PM EDT Imaging Radiology [facility] [address] [place] [address] 05/03/2024 12:00 PM EDT Office Visit Family Practice [facility] [address] [place] [address] Anna De La Vega, DO [address] [place] [address] Scheduled Procedures Name Priority Associated Diagnoses Date/Ti [...] 10/13/2019, 08/26/2017, Additional history exists COVID-19 Vaccine (2022- season) 2023 10/11/2022, 01/04/2022, 12/07/2020, Additional history [...] encounter Medical Devices Implanted Type Area Heating Engineer Device Identifier Shelf Expiration Date Model / Serial / Lot 15cm X 20cm Xenmatrix Surgical Graft, Rectangle Implanted:Qty: 1 on 01/29/2022 by Tom Broderick MD at OR [facility] [place] Graft N/A: Abdomen CR BARD : DAVOL [id number] 09/11/2022 [id number] / [id number] / [id number] Trial Lead Kit 50 Cm 16 Contact Implanted:Qty: 1 on 10/20/2017 by Gloria Pardo MD at OR [facility] N/A: Spine Thoracic [employer] : PAIN MGMT 08/08/2019 MA-2316-5 0E / [id number] / Description:T9, 10,11 Avista Mri 58 Cm 8 Contact Lead Kit Implanted:Qty: 1 on 12/01/2017 by Gloria Pardo MD at OR [facility] N/A: Back [employer] : PAIN MGMT 06/17/2019 SC-2408-5 6 / [id number] / Avista Mri 56 Cm 8 Contact Lead Kit Implanted:Qty: 1 on 12/01/2017 by Gloria Pardo MD at OR [facility] N/A: Back [employer] : PAIN MGMT 06/17/2019 SC-2408-5 6 / [id number] / Pulse Generator Kit Implanted:Qty: 1 on 12/01/2017 by Gloria Pardo MD at OR [facility] N/A: Back [employer] : PAIN MGMT 08/21/2019 MA-1200 / [id number] / Fixate Suturing Device Implanted:Qty: 1 on 12/01/2017 by Gloria Pardo MD at OR [facility] N/A: Back [employer] : PAIN MGMT 09/25/2021 -201-01 / / [id number] Clik X Mri [place] Implanted:Qty: 1 on 12/01/2017 by Gloria Pardo MD at OR [facility] N/A: Back [employer] : PAIN MGMT 07/15/2019 [id number] / / [id number] Generator Implantable Pulse - [id number] - [id number] Implanted:Qty: 1 on 05/02/2020 by Gloria Pardo MD at OR [facility] N/A: Back [employer] : PAIN MGMT 07/27/2021 [id number] / [id number] / Device Fixate Suturing - [id number] Implanted:Qty: 1 on 05/02/2020 by Gloria Pardo MD at OR [facility] N/A: [facility] [employer] [facility] 03/21/2024 [id number] / / [id number] Avista Mri 56cm 8 Contact Lead Kit Implanted:Qty: 1 on 05/02/2020 by Gloria Pardo MD at OR [facility] N/A: Back [employer] : PAIN MGMT 08/05/2021 MA-2408-5 6 / [id number] / [id number] Avista Mri 56cm 8 Contact Lead Kit Implanted:Qty: 1 on 05/02/2020 by Gloria Pardo MD at OR [facility] N/A: Back [employer] : PAIN MGMT 08/15/2021 MA-2408-5 6 / [id number] / [id number] Clik X Mri [place] Implanted:Qty: 1 on 05/02/2020 by Gloria Pardo MD at OR [facility] N/A: Back [employer] : PAIN MGMT 04/04/2022 [id number] / / [id number] Trisha Sniderson Norberto [id number] - [id number] Implanted:Qty: 1 on 02/08/2022 at [facility] COOK : DIAGNOSTIC INTERVENTION [id number] 10/10/2024 [id number] / / [id number] documented as of this encounter Visit Diagnoses Diagnosis Lumbar radiculitis Thoracic or lumbosacral neuritis or radiculitis, unspecified Spondylosis of lumbar region without myelopathy or radiculopathy Lumbosacral spondylosis without myelopathy documented in this encounter Advance Directives Latest [...] the patient have Health Care Power of Obstetrician Gynecologist? No Full Code 12/13/2015 11:19 AM 12/16/2015 5:05 PM This order reflects the patients wishes and were consensually agreed upon. Question Answer Comments Discussion of Advance Directives occurred with: Patient Does the patient have a Living Will? No Does the patient have Health Care Power of Obstetrician Gynecologist? No Healthcare Agents on File Name Relationship [facility] Manfred Levy Adult Child Health Care Repr esentative (appointed verbally by patient or by statute hierarchy) Care Teams Deputy Manager Relationship Specialty Start Date End Date Anna De La Vega DO [address] [place] [address] PCP - General Family Medicine 04/16/18 documented as of this encounter
--- OUTSIDE RECORDS SUMMARY | 2024-01-09 19:34 | External Medical Summary | Summary of Care ---
Author Name Unknown Organization [facility] [address] [facility] [address] Phone [phone] Care Team Providers Care Radiator Cleaner Name Role Phone Manav De La Vega DO Primary Care Provider Reason for Visit * Reason Onset Date Comments Med Request 12/17/2023 Encounter Details Date Type Department Care Team (Late st Contact Info) Description 12/17/2023 Telephone Family Practice [facility] [address] [place] [address] Manav De La Vega DO [address] [place] [address] Med Request Allergies Active Allergy Reactions Criticality Noted Date Comments Codeine Itching 05/20/2012 adverse reactions In large amounts only Gluten Itching 05/29/2005 Breaking out in blisters Gluten Meal Low 11/28/2022 Other reaction(s): rash Iodine Itching 02/28/2011 oral Atorvastatin Calcium Muscle pain 02/21/2014 Meloxicam Renal complications Medium 09/24/2017 Penicillins Rash 08/16/2002 Tramadol Hcl 08/07/2011 Bad stomach problems documented as of this encounter (statuses as of 12/17/2023) Medications Medication Sig Dispensed Refills Start Date [...] EVENING 315 Tablet 3 11/21/2022 4 Active metFORMIN HCl [...] Additional Information Patient not taking.Reported on 11/27/2023 HYDROcodone-Acetam inophen 10-325 MG Oral TabletIndications: Lumbar [...] for Nausea. 30 Tablet 0 12/17/2023 Active Ondansetron HCl 4 MG Oral Tablet Take 1 Tablet by mouth every 6 hours as needed for Nausea. 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 Oxygen dependent 08/20/2023 ACE (obstructive sleep apnea) 08/20/2023 Lumbar degenerative disc disease 08/19/2023 Generalized osteoarthritis 08/19/2023 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 11/21/2022 Coronary artery disease invo lving [place] coronary artery of [place] heart without angina pectoris 11/22/2021 Pleural [...] as of this encounter (statuses as of 12/17/2023) Resolved Problems Problem Noted Date Diagnosed Date [...] as of this encounter (statuses as of 12/17/2023) Immunizations Name Administration Dates Next Due COVID-19 mRNA, LNP-s, No Pre serve, 2-Dose Series (Ins[employer]) 12/07/2020,11/16/2020 COVID-19, LNP-s, No Preserve , Justice-sucrose, Ages 12+ (Pfizer) 01/04/2022 Covid-19, Mrna, Lnp-s, Pf, B ivalent, 30 Mcg, IM, 12 yrs and above (Pfizer) 10/11/2022 Pneumococcal Conjugate Vacc, 13 Valent (Prevnar) 09/29/2012 Pneumococcal Conjugate Vacci ne, 20-valent ([id number]) 08/13/2023 Pneumococcal Polysaccharide PPV23 (Pneumovax) 06/07/2015 Season [...] encounter Miscellaneous Notes * Telephone Encounter - Devika Antoine MED ASSIST - 12/17/2023 11:05 AM EDT Pt informed. * Telephone Encounter - Manav De La Vega DO - 12/17/2023 10:27 AM EDT Ok - refill placed Clinic eval if worsening * Telephone Encounter - Hortencia Anthony LPN - 12/17/2023 9:09 AM EDT Patient is calling. He has the stomach flu. Has been nauseated since Friday. He has not thrown up. No diarrhea. Just nauseated. Zofran has kept him settled down. He is out. Asking for a refill. No fever. Only other symptom is a headache off and on. Pending Prescriptions: Disp Refills Ondansetron HCl 4 MG Oral Tablet 30 Tab*0 Sig: Take 1 Tablet by mouth every 6 hours as needed for Nausea. 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 ILD (interstitial lung disease) ([facility]) J84.9 Coronary artery disease involving [place] coronary artery of [place] heart without angina pectoris I25.10 Spinal [...] Operating Room [facility] [address] [place] [address] Kevon Vela DO [address] [place] [address] 01/19/2024 8:00 AM EDT - 01/19/2024 8:25 AM EDT Surgery OR [facility], Operating Room [facility] [address] [place] [address] Kevon Vela DO [address] [place] [address] L-/S-SPINE PARAVERTEBRAL FACET INJ, 1 LEVEL 01/28/2024 8:30 AM EDT Office Visit [facility] [address] [place] [address] Wilfredo Vázquez, DO [address] [place] [address] 03/01/2024 1:00 PM EDT Imaging Radiology [address] [place] [address] 05/03/2024 12:00 PM EDT Office Visit Family Practice [facility] [address] [place] [address] Manav De La Vega, [address] [place] [address] Scheduled Procedures Name Priority Associated Diagnoses Date/Ti [...] encounter Medical Devices Implanted Type Area Senior Specialist Device Identifier Shelf Expiration Date Model / Serial / Lot 15cm X 20cm Xenmatrix Surgical Graft, Rectangle Implanted:Qty: 1 on 01/29/2022 by Tom Broderick MD at OR [facility] [place] Graft N/A: Abdomen CR BARD : DAVOL [id number] 09/11/2022 [id number] / [id number] / [id number] Trial Lead Kit 50 Cm 16 Contact Implanted:Qty: 1 on 10/20/2017 by Gloria Pardo MD at OR [facility] N/A: Spine Thoracic [employer] : PAIN MGMT 08/08/2019 NH-2316-5 0E / [id number] / Description:T9, 10,11 Avista Mri 58 Cm 8 Contact Lead Kit Implanted:Qty: 1 on 12/01/2017 by Gloria Pardo MD at OR [facility] N/A: Back [employer] : PAIN MGMT 06/17/2019 SC-2408-5 6 / [id number] / Avista Mri 56 Cm 8 Contact Lead Kit Implanted:Qty: 1 on 12/01/2017 by Gloria Pardo MD at OR [facility] N/A: Back [employer] : PAIN MGMT 06/17/2019 SC-2408-5 6 / [id number] / Pulse Generator Kit Implanted:Qty: 1 on 12/01/2017 by Gloria Pardo MD at OR [facility] N/A: Back [employer] : PAIN MGMT 08/21/2019 NH-1200 / [id number] / Fixate Suturing Device Implanted:Qty: 1 on 12/01/2017 by Gloria Pardo MD at OR [facility] N/A: Back [employer] : PAIN MGMT 09/25/2021 -201- / / [id number] Clik X Mri Warriormine Implanted:Qty: 1 on 12/01/2017 by Gloria Pardo MD at OR [facility] N/A: Back [employer] : PAIN MGMT 07/15/2019 [id number] / / [id number] Generator Implantable Pulse - [id number] - [id number] Implanted:Qty: 1 on 05/02/2020 by Gloria Pardo MD at OR [facility] N/A: Back [employer] : PAIN MGMT 07/27/2021 [id number] / [id number] / Device Fixate Suturing - [id number] Implanted:Qty: 1 on 05/02/2020 by Gloria Pardo MD at OR [facility] N/A: Back [employer] [facility] 03/21/2024 [id number] / / [id number] Avista Mri 56cm 8 Contact Lead Kit Implanted:Qty: 1 on 05/02/2020 by Gloria Pardo MD at OR [facility] N/A: Back [employer] : PAIN MGMT 08/05/2021 NH-2408-5 6 [id number] / [id number] Avista Mri 56cm 8 Contact Lead Kit Implanted:Qty: 1 on 05/02/2020 by Gloria Pardo MD at OR [facility] N/A: Back [employer] : PAIN MGMT 08/15/2021 NH-2408-5 6 [id number] / [id number] Clik X Mri Warriormine Implanted:Qty: 1 on 05/02/2020 by Gloria Pardo MD at OR [facility] N/A: Back [employer] : PAIN MGMT 04/04/2022 [id number] / / [id number] Trisha Thornton [id number] - [id number] Implanted:Qty: 1 on 02/08/2022 at [facility] COOK : DIAGNOSTIC INTERVENTION [id number] 10/10/2024 [id number] / / [id number] documented as of this encounter Advance Directives [...] the patient have Health Care Power of Award Clerk? No Full Code 12/13/2015 11:19 AM 12/16/2015 5:05 PM This order reflects the patients wishes and were consensually agreed upon. Question Answer Comments Discussion of Advance Directives occurred with: Patient Does the patient have a Living Will? No Does the patient have Health Care Power of Award Clerk? No Healthcare Agents on File Name Relationship Healthcare Agent Relationshi p Communication Manfred Levy Adult Child Health Care Repr esentative (appointed verbally by patient or by statute hierarchy) Care Teams Radiator Cleaner Relationship Specialty Start Date End Date Manav De La Vega DO [facility] [place] [id number] PCP - General Family Medicine 04/16/18 documented as of this encounter
--- OUTSIDE RECORDS SUMMARY | 2024-01-09 19:35 | External Medical Summary | Summary of Care ---
Author Name Unknown Organization [facility] Address [address] [facility] [facility] [address] Phone [phone] Care Team Providers Care Salesforce Administrator Name Role Phone Anna De La Vega DO Primary Care Provider Reason for Visit * Reason Comments Medication Refill Encounter Details Date Type Department Care Team (Late st Contact Info) Description 12/09/2023 Refill Family Practice [facility] [address] [place] [address] Anna De La Vega DO [address] [place] [address] High grade dysplasia of Nash's epithelium Allergies Active Allergy Reactions Criticality Noted Date Comments Codeine Itching 05/20/2012 adverse reactions In large amounts only Gluten Itching 05/29/2005 Breaking out in blisters Gluten Meal Low 11/28/2022 Other reaction(s): rash Iodine Itching 02/28/2011 oral Atorvastatin Calcium Muscle pain 02/21/2014 Meloxicam Renal complications Medium 09/24/2017 Penicillins Rash 08/16/2002 Tramadol Hcl 08/07/2011 Bad stomach problems documented as of this encounter (statuses as of 12/10/2023) Medications Medication Sig Dispensed Refills Start Date [...] Muscle spasms. 60 Tablet 1 08/11/2023 Active Ondansetron HCl 4 MG Oral Tablet Take 1 Tablet by mouth every 6 hours as needed for Nausea. 30 Tablet 0 08/15/2023 Active Additional Information Patient not taking.Reported on 11/27/2023 DULoxetine HCl 60 MG Oral Capsule Delayed [...] the morning. 90 Tablet 1 12/10/2023 Active Pantoprazole Sodium 40 MG Oral Tablet Delayed Release (Protonix)Indicati ons:High grade dysplasia of Nash's epithelium Take 1 Tablet by mouth in the morning. 90 Tablet 3 09/24/2022 4 Discontinu ed(Refill) Hospital, Clinic, or Other [...] as of this encounter (statuses as of 12/10/2023) Active Problems Problem Noted Date Diagnosed Date Overweight (BMI 25.0-29.9) 08/20/2023 Organic erectile dysfunction 08/20/2023 Oxygen dependent 08/20/2023 ACE (obstructive sleep apnea) 08/20/2023 Lumbar degenerative disc disease 08/19/2023 Generalized osteoarthritis 08/19/2023 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 11/21/2022 Coronary artery disease invo lving [place] coronary artery of [place] heart without angina pectoris 11/22/2021 Pleural plaque [...] as of this encounter (statuses as of 12/10/2023) Resolved Problems Problem Noted Date Diagnosed Date [...] as of this encounter (statuses as of 12/10/2023) Immunizations Name Administration Dates Next Due COVID-19 mRNA, LNP-s, No Pre serve, 2-Dose Series ([employer]) 12/07/2020,11/16/2020 COVID-19, LNP-s, No Preserve , Justice-sucrose, Ages 12+ (Pfizer) 01/04/2022 Covid-19, Mrna, Lnp-s, Pf, B ivalent, 30 Mcg, IM, 12 yrs and above (Pfizer) 10/11/2022 Pneumococcal Conjugate Vacc, 13 Valent (Prevnar) 09/29/2012 Pneumococcal Conjugate Vacci ne, 20-valent ([id number]) 08/13/2023 Pneumococcal Polysaccharide PPV23 (Pneumovax) 06/07/2015 Season [...] encounter Miscellaneous Notes * Telephone Encounter - Yesenia Jo [facility] - 12/10/2023 12:59 PM EDT Signed Prescriptions: Disp Refills Pantoprazole Sodium 40 MG Oral Tablet Caterina*90 Tab*1 Sig: Take 1 Tablet by mouth in the morning.Authorizing Provider: ANNA DE LA VEGA User: YESENIA JO documented in this encounter Plan of Treatment Upcoming Encounters Date Type Department Care Team (Latest Contact Info) Description 01/19/2024 8:00 AM EDT Hospital Encounter OR [facility], Operating Room [facility] [address] [place] [address] Kevon Vela, DO [address] [place] [address] 01/19/2024 8:00 AM EDT - 01/19/2024 8:25 AM EDT Surgery OR [facility], Operating Room [facility] [address] [place] [address] Kevon Vela, DO [address] [place] [phone] L-/S-SPINE PARAVERTEBRAL FACET INJ, 1 LEVEL 01/28/2024 8:30 AM EDT Office Visit Orthopaedics [facility] [address] [place] [address] Wilfredo Vázquez, DO [address] [place] [address] 03/01/2024 1:00 PM EDT Imaging Radiology [facility] [address] [place] [address] 05/03/2024 12:00 PM EDT Office Visit Family Practice [facility] [address] [place] [address] Anna De La Vega, DO [address] [place] [address] Scheduled Procedures Name Priority Associated Diagnoses Date/Ti [...] this encounter Medical Devices Implanted Type Area Kier Operator Device Identifier Shelf Expiration Date Model / Serial / Lot 15cm X 20cm Xenmatrix Surgical Graft, Rectangle Implanted:Qty: 1 on 01/29/2022 by Tom Broderick MD at [place] [facility] Graft N/A: Abdomen CR BARD : DAVOL [id number] 09/11/2022 [id number] / [id number] / [id number] Trial Lead Kit 50 Cm 16 Contact Implanted:Qty: 1 on 10/20/2017 by Gloria Pardo MD at OR [facility] N/A: Spine Thoracic [employer] : PAIN MGMT 08/08/2019 [facility]2316-5 0E / [id number] / Description:T9, 10,11 Avista Mri 58 Cm 8 Contact Lead Kit Implanted:Qty: 1 on 12/01/2017 by Gloria Pardo MD at OR [facility] N/A: Back [employer] : PAIN MGMT 06/17/2019 DE-2408-5 6 / [id number] / Avista Mri 56 Cm 8 Contact Lead Kit Implanted:Qty: 1 on 12/01/2017 by Gloria Pardo MD at OR [facility] N/A: Back [employer] : PAIN MGMT 06/17/2019 [facility]2408-5 6 / [id number] / Pulse Generator Kit Implanted:Qty: 1 on 12/01/2017 by Gloria Pardo MD at OR [facility] N/A: Back [employer] : PAIN MGMT 08/21/2019 DE-1200 / [id number] / Fixate Suturing Device Implanted:Qty: 1 on 12/01/2017 by Gloria Pardo MD at OR [facility] N/A: Back [employer] : PAIN MGMT 09/25/2021 -201-01 / / [id number] Clik X Mri [place] Implanted:Qty: 1 on 12/01/2017 by Gloria Pardo MD at OR [facility] N/A: Back [employer] : PAIN MGMT 07/15/2019 DE-4319 / / [id number] Generator Implantable Pulse - [id number] - [id number] Implanted:Qty: 1 on 05/02/2020 by Gloria Pardo MD at OR [facility] N/A: Back [employer] : PAIN MGMT 07/27/2021 [id number] / [id number] / Device Fixate Suturing - [id number] Implanted:Qty: 1 on 05/02/2020 by Gloria Pardo MD at OR [facility] N/A: Back [employer] [facility] 03/21/2024 [id number] / / [id number] Avista Mri 56cm 8 Contact Lead Kit Implanted:Qty: 1 on 05/02/2020 by Gloria Pardo MD at OR [facility] N/A: Back [employer] : PAIN MGMT 08/05/2021 SC-2408-5 6 / [id number] / [id number] Avista Mri 56cm 8 Contact Lead Kit Implanted:Qty: 1 on 05/02/2020 by Gloria Pardo MD at OR [facility] N/A: Back [employer] : PAIN MGMT 08/15/2021 DE-2408-5 6 / [id number] / [id number] Clik X Mri [place] Implanted:Qty: 1 on 05/02/2020 by Gloria Pardo MD at OR 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 No Full Code 12/13/2015 11:19 AM 12/16/2015 5:05 PM This order reflects the patients wishes and were consensually agreed upon. Question Answer Comments Discussion of Advance Directives occurred with: Patient Does the patient have a Living Will? No Does the patient have Health Care Power of Block Cutter? No Healthcare Agents on File Name Relationship Healthcare Agent [facility] Manfred Levy Adult Child Health Care Repr esentative (appointed verbally by patient or by statute hierarchy) Care Teams Salesforce Administrator Relationship Specialty Start Date End Date Anna De La Vega DO [address] [place] [address] PCP - General Family Medicine 04/16/18 documented as of this encounter
--- OUTSIDE RECORDS SUMMARY | 2024-01-09 19:35 | External Medical Summary | Summary of Care ---
Author Name Unknown Organization [facility] Address [address] [facility] [address] Phone [phone] Care Team Providers Care Dean Of Chapel Name Role Phone Manav De La Vega DO Primary Care Provider Reason for Visit * Reason Comments Return Visit Pt here for 6 mo ret urn. Pt states he cut L hand on metal on side by side on 11/25/2023. Laceration is clean, but pt is overdue to Tdap. Encounter Details Date Type Department Care Team (Late st Contact Info) Description 11/27/2023 6:00 PM EDT Office Visit Family Practice [facility] [address] [place] [address] Manav De La Vega, [address] [place] [address] Nash's esophagus with dysplasia*; Need for iqmetyhqgd-vygusct-nz rtussis (Tdap) vaccine; HTN, goal below 140/90; Dyslipidemia; ILD (interstitial lung disease) (HCC); Encounter for change or removal of surgical wound dressing; Celiac disease Allergies Active Allergy Reactions Criticality Noted Date Comments Codeine Itching 05/20/2012 adverse reactions In large amounts only Gluten Itching 05/29/2005 Breaking out in blisters Gluten Meal Low 11/28/2022 Other reaction(s): rash Iodine Itching 02/28/2011 oral Atorvastatin Calcium Muscle pain 02/21/2014 Meloxicam Renal complications Medium 09/24/2017 Penicillins Rash 08/16/2002 Tramadol Hcl 08/07/2011 Bad stomach problems documented as of this encounter (statuses as of 11/27/2023) Medications Medication Sig Dispensed Refills Start Date [...] For constipation. 15 Tablet 0 02/04/2022 Active Pantoprazole Sodium 40 MG Oral Tablet [...] Additional Information Patient not taking.Reported on 09/23/2023 predniSONE 50 MG Oral Tablet (Deltasone)Indicat ions:H/O allergy to radiographic contrast media Take 1 tablet by mouth 13 hours prior and 1 tablet 1 hour prior to scheduled procedure. Take with food and water. 2 Tablet 0 08/26/2023 Active Additional Information Patient not taking.Reported on 11/27/2023 diphenhydrAMINE HCl 50 MG Oral TabletIndications: H/O allergy to radiographic contrast media Take 1 capsule by mouth one hour prior to scheduled injection. 1 Tablet 0 08/26/2023 Active Additional Information Patient not taking.Reported on 11/27/2023 Ezetimibe 10 MG Oral Tablet (Zetia) TAKE [...] Other (pain). 120 Tablet 0 11/25/2023 Active Xsqpzwr-Rndmot-Buq ll Pertussis 5-2.5-18.5 LF-MCG/0.5 Suspension Prefilled Syringe (Boostrix)Indicati ons:Need for diphtheria-tetanus -pertussis (Tdap) vaccine Inject 0.5 mL into a large muscle once for 1 dose. As directed 0.5 mL 0 11/27/2023 4 Active Silver Nitrate-Pot Nitrate 75-25 % ExternalIndication s:Encounter for change or removal of surgical wound dressing Apply 1 Each topically to affected area once for 1 dose. 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 Oxygen dependent 08/20/2023 ACE (obstructive sleep apnea) 08/20/2023 Lumbar degenerative disc disease 08/19/2023 Generalized osteoarthritis 08/19/2023 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 11/21/2022 Coronary artery disease invo lving [place] coronary artery of [place] heart without angina pectoris 11/22/2021 Pleural plaque [...] as of this encounter (statuses as of 11/27/2023) Resolved Problems Problem Noted Date Diagnosed Date [...] as of this encounter (statuses as of 11/27/2023) Immunizations Name Administration Dates Next Due COVID-19 mRNA, LNP-s, No Pre serve, 2-Dose Series (Trippifi) 12/07/2020,11/16/2020 COVID-19, LNP-s, No Preserve , Justice-sucrose, Ages 12+ (Trippifi) 01/04/2022 Covid-19, Mrna, Lnp-s, Pf, B ivalent, 30 Mcg, IM, 12 yrs and above (Trippifi) 10/11/2022 Pneumococcal Conjugate Vacc, 13 Valent (Prevnar) 09/29/2012 Pneumococcal Conjugate Vacci ne, 20-valent ([id number]) 08/13/2023 Pneumococcal Polysaccharide PPV23 (Pneumovax) 06/07/2015 Season [...] Sign Reading Time Taken Comments Blood Pressure 110/62 11/27/2023 5:44 PM EDT Pulse 61 11/27/2023 5:44 PM EDT Temperature - - Respiratory Rate 16 11/27/2023 5:44 PM EDT Oxygen Saturation 96% 11/27/2023 5:44 PM EDT Inhaled Oxygen Concentration - - Weight 79.4 kg (175 lb 1 oz) 11/27/2023 5:44 PM EDT Height - - Body Mass Index 25.64 11/27/2023 8:47 AM EDT documented in this encounter Functional Status [...] Progress Notes * Manav De La Vega, - 11/27/2023 5:57 PM EDT Images from the original note were not included. Assessment and Plan Nash's esophagus with dysplasia Patient aware of Phill's but declines further EGD screening for now - will stay on PPI however Need for glcrzvgjsf-bqewnqq-ublqfyiri (Tdap) vaccine - Guitsdj-Opotbb-Qregx Pertussis 5-2.5-18.5 LF-MCG/0.5 Suspension Prefilled Syringe (Boostrix); Inject 0.5 mL into a large muscle once for 1 dose. As directed HTN, goal below 140/90 Stable and controlled Dyslipidemia ILD (interstitial lung disease) (HCC) Encounter for change or removal of surgical wound dressing - Silver Nitrate-Pot Nitrate 75-25 % External; Apply 1 Each topically to affected area once for 1 dose. Celiac disease Stable symptoms as mendel gas he stays off gluten History of Present Illness Michele Levy is a 83 year old male that presents for Return Visit (Pt here for 6 mo return. Pt states he cut L hand on metal on side by side on 11/25/2023. Laceration is clean, but pt is overdue toTdap.) Overall has been doing well Is compliant with meds Is active and works out at his camp in the [facility] a fair amount Is active and involved at his [employer] Physical Exam Vitals: 11/27/23 1744 Pulse: 61 Resp: 16 SpO2: 96% BP: 110/62 Physical Exam Constitutional: Appearance: Normal appearance. HENT: Head: Normocephalic and atraumatic. Eyes: Extraocular Movements: Extraocular movements intact. Pupils: Pupils are equal, round, and reactive to light. Cardiovascular: Rate and Rhythm: Normal rate and regular rhythm. Pulmonary: Effort: Pulmonary effort is normal. Breath sounds: Normal breath sounds. Neurological: General: No focal deficit present. Mental Status: He is alert and oriented to person, place, and time. Psychiatric: Mood and Affect: Mood normal. Behavior: Behavior normal. Wrap-Up Follow-up: Return in about 6 months (around 05/29/2024). | Check-out note: Every other with thiede if needed please Time: Total time today was 41 minutes excluding any time spent in the performance of separately billed services. documented in this encounter Plan of Treatment Upcoming Encounters Date Type Department Care Team (Latest Contact Info) Description 12/08/2023 11:30 AM EDT Telemedicine Interventional Pain Center, [facility] [address] [place] [address] Eva Turner PA-C [address] [place] [address] 01/19/2024 8:00 AM EDT Hospital Encounter OR [facility], Operating Room [facility] [address] [place] [phone] Kevon Vela, DO [address] [place] [phone] 01/19/2024 8:00 AM EDT - 01/19/2024 8:25 AM EDT Surgery OR [facility], Operating Room [facility] [address] [place] [phone] Kevon Vela, DO [address] [place] [address] L-/S-SPINE PARAVERTEBRAL FACET INJ, 1 LEVEL 01/28/2024 8:30 AM EDT Office Visit Orthopaedics [facility] [address] [place] [address] Wilfredo Vázquez, DO [address] [place] [address] 03/01/2024 1:00 PM EDT Imaging Radiology [facility] [address] [place] [address] 05/03/2024 12:00 PM EDT Office Visit Family Practice [facility] [address] [place] [address] Manav De La Vega, DO [address] [place] [address] Scheduled Procedures Name Priority Associated Diagnoses Date/Ti me L-/S-SPINE PARAVERTEBRAL FACET INJ, 1 LEVEL Spondylosis of lumbar region without myelopathy or radiculopathy 01/19/2024 8:00 AM EDT L-/S-SPINE PARAVERTEBRAL FACET INJ, 2 LEVELS Spondylosis of lumbar region without myelopathy or radiculopathy 01/19/2024 8:00 AM EDT COLONOSCOPY FLEXIBLE PROXIMAL DIAGNOSTIC Recall History of colon polyps Health Maintenance Due Date Last Done Comments DTaP,Tdap,and Td Vaccines (2 - Td or Tdap) 10/05/2022 10/05/2012 Nash's Esophagus Surveilance 10/13/2022 10/13/2019, 10/13/2019, 08/26/2017, Additional history exists COVID-19 Vaccine ( - 2022- season) 2023 10/11/2022, 01/04/2022, 12/07/2020, Additional history exists GFR 03/31/2024 03/31/2023, 02/2022, 02/09/2022, Additional history exists Depression Screening 08/20/2024 08/20/2023 Albumin/Creatinine Ratio 03/31/2026 03/31/2023 COLONOSCOPY-EVERY 5 YRS AGES 18-100 Discontinued 12/17/2016, [...] this encounter Medical Devices Implanted Type Area Associate Director Financial Aid Device Identifier Shelf Expiration Date Model / Serial / Lot 15cm X 20cm Xenmatrix Surgical Graft, Rectangle Implanted:Qty: 1 on 01/29/2022 by Tom Broderick MD at OR [facility] Graft N/A: Abdomen CR BARD : DAVOL [id number] 09/11/2022 [id number] / [id number] / [id number] Trial Lead Kit 50 Cm 16 Contact Implanted:Qty: 1 on 10/20/2017 by Gloria Pardo MD at OR [facility] N/A: Spine Thoracic [employer] : PAIN MGMT 08/08/2019 [id number] 0E / [id number] / Description:T9, 10,11 Avista Mri 58 Cm 8 Contact Lead Kit Implanted:Qty: 1 on 12/01/2017 by Gloria Pardo MD at OR [facility] N/A: Back [employer] : PAIN MGMT 06/17/2019 [id number] 6 / [id number] / Avista Mri 56 Cm 8 Contact Lead Kit Implanted:Qty: 1 on 12/01/2017 by Gloria Pardo MD at OR [facility] N/A: Back [employer] : PAIN MGMT 06/17/2019 [id number] 6 / [id number] / Pulse Generator Kit Implanted:Qty: 1 on 12/01/2017 by Gloria Pardo MD at OR [facility] N/A: Back [employer] : PAIN MGMT 08/21/2019 IA-1200 / [id number] / Fixate Suturing Device Implanted:Qty: 1 on 12/01/2017 by Gloria Pardo MD at OR [facility] N/A: Back [employer] : PAIN MGMT 09/25/2021 FB-201-01 / / [id number] Clik X Mri [place] Implanted:Qty: 1 on 12/01/2017 by Gloria Pardo MD at OR [facility] N/A: Back [employer] : PAIN MGMT 07/15/2019 IA-4319 / / [id number] Generator Implantable Pulse - [id number] - [id number] Implanted:Qty: 1 on 05/02/2020 by Gloria Pardo MD at OR [facility] N/A: Back [employer] : PAIN MGMT 07/27/2021 [id number] / [id number] / Device Fixate Suturing - [id number] Implanted:Qty: 1 on 05/02/2020 by Gloria Pardo MD at OR [facility] N/A: [facility] [email or web address] 03/21/2024 [id number] / / [id number] Avista Mri 56cm 8 Contact Lead Kit Implanted:Qty: 1 on 05/02/2020 by Gloria Pardo MD at OR [facility] N/A: Back [employer] : PAIN MGMT 08/05/2021 [id number] 6 [id number] / [id number] Avista Mri 56cm 8 Contact Lead Kit Implanted:Qty: 1 on 05/02/2020 by Gloria Pardo MD at OR [facility] N/A: Back [employer] : PAIN MGMT 08/15/2021 IA-2408-5 6 [id number] / [id number] Clik X Mri [place] Implanted:Qty: 1 on 05/02/2020 by Gloria Pardo MD at OR [facility] N/A: Back [employer] : PAIN MGMT 04/04/2022 [id number] / / [id number] Cath Ryan Thornton [id number] - [id number] Implanted:Qty: 1 on 02/08/2022 at [facility] COOK : DIAGNOSTIC INTERVENTION [id number] 10/10/2024 [id number] / / [id number] documented as of this encounter Visit Diagnoses Diagnosis Nash's esophagus with dysplasia- Primary Nash's esophagus Need for hlrxtzmmac-syxtddc-jxbtiybeo (Tdap) vaccine Need for prophylactic vaccination with combined nglarmiyxt-zgzeexu-ugpbvvrgp (DTP) vaccine HTN, goal below 140/90 Unspecified essential hypertension Dyslipidemia Other and unspecified hyperlipidemia ILD (interstitial lung disease) (HCC) Postinflammatory pulmonary fibrosis Encounter for change or removal of surgical wound dressing Celiac disease Spondylosis of lumbar region without myelopathy or [...] the patient have Health Care Power of Radar Engineering Teacher? No Full Code 12/13/2015 11:19 AM 12/16/2015 5:05 PM This order reflects the patients wishes and were consensually agreed upon. Question Answer Comments Discussion of Advance Directives occurred with: Patient Does the patient have a Living Will? No Does the patient have Health Care Power of Radar Engineering Teacher? No Healthcare Agents on File Name Relationship Healthcare Agent Relationshi p Communication Manfred Levy Adult Child Health Care Repr esentative (appointed verbally by patient or by statute hierarchy) Care Teams Dean Of Chapel Relationship Specialty Start Date End Date Manav De La Vega DO [address] [place] [address] PCP - General Family Medicine 04/16/18 documented as of this encounter"
--- OUTSIDE RECORDS SUMMARY | 2024-01-09 19:35 | External Medical Summary | Summary of Care ---
Author Name Unknown Organization [facility] Address [address] [facility] [address] Phone [phone] Care Team Providers Care Regional Facilities Manager Name Role Phone Manav De La Vega DO Primary Care Provider Reason for Visit * Reason Comments Pulmonary Function Test PFT with broncho dilator Oxygen Assessment 6 minute [address] Encounter Details Date Type Department Care Team (Latest Contact Info) Description 11/27/2023 9:00 AM EDT PulmDiagnostic Pulmonary Function Lab, [facility] [address] [place] [address] [place], [address] [facility] [place] [address] ILD (interstitial lung disease) ([facility])*; Asbestosis ([facility]) Allergies Active Allergy Reactions Criticality Noted Date [...] for Constipation. 255 g 0 08/06/2021 Active CPAP every night at bedtime. 0 Active [...] Muscle spasms. 60 Tablet 1 08/11/2023 Active Cefdinir 300 MG Oral Capsule (Omnicef) take 1 capsule by mouth twice daily 10 Capsule 0 08/14/2023 Active guaiFENesin ER 600 MG Oral Tablet Extended Release 12 Hour (Humibid LA) take 1 tablets by mouth every twelve hours 20 Tablet 0 08/14/2023 Active Additional Information Patient not taking.Reported on 09/23/2023 Ondansetron HCl 4 MG Oral Tablet Take 1 Tablet by mouth every 6 hours as needed for Nausea. 30 Tablet 0 08/15/2023 Active DULoxetine HCl 60 MG Oral Capsule [...] on 09/23/2023 predniSONE 50 MG Oral Tablet (Deltasone)Indicati ons:H/O allergy to radiographic contrast media Take 1 tablet by mouth 13 hours prior and 1 tablet 1 hour prior to scheduled procedure. Take with food and water. 2 Tablet 0 08/26/2023 Active diphenhydrAMINE HCl 50 MG Oral TabletIndications:H /O allergy to radiographic contrast media Take 1 capsule by mouth one hour prior to scheduled injection. 1 Tablet 0 08/26/2023 Active Ezetimibe 10 MG Oral Tablet (Zetia) [...] chest pain 25 Tablet 5 10/22/2023 Active HYDROcodone-Acetami nophen 10-325 MG Oral TabletIndications:L umbar radiculitis Take 1 Tablet by mouth every 6 hours as needed for Other (pain). 120 Tablet 0 11/25/2023 Active Hospital, Clinic, or Other Facility Administered [...] status 11/21/2022 Coronary artery disease invo lving [place] coronary artery of [place] heart without angina pectoris 11/22/2021 Pleural plaque [...] Prediabetes protocol History of colon polyps 12/15/2018 1201/2023 Systolic ejection murmur 04/16/201801/2023 S/P lumbar fusion [...] (Prevnar) 09/29/2012 Pneumococcal Conjugate Vacci ne, 20-valent ([id number]) 08/13/2023 Pneumococcal Polysaccharide PPV23 (Pneumovax) 06/07/2015 Season [...] Sign Reading Time Taken Comments Blood Pressure 128/70 11/27/2023 8:47 AM EDT Pulse 62 11/27/2023 8:47 AM EDT Temperature - - Respiratory Rate 16 11/27/2023 8:47 AM EDT Oxygen Saturation 97% 11/27/2023 8:47 AM EDT Inhaled Oxygen Concentration - - Weight 79.4 kg (175 lb 0.7 oz) 11/27/2023 8:47 A M EDT Height 176 cm (5' 9.29") 11/27/2023 8:47 AM EDT Body Mass Index 25.63 11/27/2023 8:47 AM EDT documented in this [...] No 02/08/2022 documented as of this encounter Nursing Notes * Shakira Gorman RRT - 11/27/2023 8:55 AM EDT Michele Levy was identified by name, Date of : (1940), and . Vitals were obtained for testing. Body mass index is 25.63 kg/m. Pt does not have a smoking history. Pt is ordered CPAP but has not used in over a year. Pt has oxygen and uses it PRN. Pt experiences more SOB when eats Gluten. 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 Spirometry, DLCO, RAW, and TGVperformed. A slow volume nebulizer treatment of 0.5ml of albuterol in 3 ml of NSS was given. The proper method of use, as well as anticipated side effects, of this svn are discussed and demonstrated to the patient. Patient demonstrates adequate delivery. Exercise oximetry performed on room air x 6 m inutes. Pt ambulated 1350 feet/ 411 meters. No rest periods were required. Lowest SPO2 on room air was 92%. Administrations This Visit Albuterol Sulfate (Proventil) (5 MG/ML) 0.5% *conc* inhalation solution 2.5 mg Admin Date 11/27/2023 Action Given Dose 2.5 mg Route Nebulizer Documented By Shakira Gorman RRT documented in this encounter Plan of Treatment Upcoming Encounters Date Type Department Care Team (Latest Contact Info) Description 11/27/2023 6:00 PM EDT Office Visit [facility] [address] [place] [address] Manav De La Vega, [address] [place] [address] 12/08/2023 11:30 AM EDT Telemedicine Interventional Pain Center, [facility] [address] [place] [address] Eva Turner PA-C [address] [place] [address] 01/19/2024 8:00 AM EDT Hospital Encounter OR [facility], Operating Room [facility] [address] [place] [phone] Kevon Vela, DO [address] [place] [address] 01/19/2024 8:00 AM EDT - 01/19/2024 8:25 AM EDT Surgery OR [facility], Operating Room [facility] [address] [place] [phone] Kevon Vela, DO [address] [place] [phone] L-/S-SPINE PARAVERTEBRAL FACET INJ, 1 LEVEL 01/28/2024 8:30 AM EDT Office Visit Orthopaedics [facility] [address] [place] [address] Wilfredo Vázquez, DO [address] [place] [address] 03/01/2024 1:00 PM EDT Imaging Radiology [facility]st [facility] [address] [place] [address] 05/03/2024 12:00 PM EDT Office Visit Family Practice [facility] [address] [place] [address] Manav De La Vega, DO [address] [place] [address] Scheduled Procedures Name Priority Associated Diagnoses Date/Ti [...] this encounter Medical Devices Implanted Type Area Calendering Supervisor Device Identifier Shelf Expiration Date Model / Serial / Lot 15cm X 20cm Xenmatrix Surgical Graft, Rectangle Implanted:Qty: 1 on 01/29/2022 by Tom Broderick MD at [place] [facility] Graft N/A: Abdomen CR BARD : DAVOL [id number] 09/11/2022 [id number] / [id number] / [id number] Trial Lead Kit 50 Cm 16 Contact Implanted:Qty: 1 on 10/20/2017 by Gloria Pardo MD at OR [facility] N/A: Spine Thoracic [employer] : PAIN MGMT 08/08/2019 AZ-2316-5 0E / [id number] / Description:T9, 10,11 Avista Mri 58 Cm 8 Contact Lead Kit Implanted:Qty: 1 on 12/01/2017 by Gloria Pardo MD at OR [facility] N/A: Back [employer] : PAIN MGMT 06/17/2019 AZ-2408-5 6 / [id number] / Avista Mri 56 Cm 8 Contact Lead Kit Implanted:Qty: 1 on 12/01/2017 by Gloria Pardo MD at OR [facility] N/A: Back [employer] : PAIN MGMT 06/17/2019 AZ-2408-5 6 / [id number] / Pulse Generator Kit Implanted:Qty: 1 on 12/01/2017 by Gloria Pardo MD at OR [facility] N/A: Back [employer] : PAIN MGMT 08/21/2019 AZ-1200 / [id number] / Fixate Suturing Device Implanted:Qty: 1 on 12/01/2017 by Gloria Pardo MD at OR [facility] N/A: Back [employer] : PAIN MGMT 09/25/2021 -201-01 / / [id number] Clik X Mri [place] Implanted:Qty: 1 on 12/01/2017 by Gloria Pardo MD at OR [facility] N/A: Back [employer] : PAIN MGMT 07/15/2019 AZ-4319 / / [id number] Generator Implantable Pulse - [id number] - [id number] Implanted:Qty: 1 on 05/02/2020 by Gloria Pardo MD at OR [facility] N/A: Back [employer] : PAIN MGMT 07/27/2021 [id number] / [id number] / Device Fixate Suturing - [id number] Implanted:Qty: 1 on 05/02/2020 by Gloria Pardo MD at OR [facility] N/A: Back Area 1 Security 03/21/2024 [id number] / / [id number] Avista Mri 56cm 8 Contact Lead Kit Implanted:Qty: 1 on 05/02/2020 by Gloria Pardo MD at OR [facility] N/A: Back [employer] : PAIN MGMT 08/05/2021 AZ-2408-5 6 / [id number] / [id number] Avista Mri 56cm 8 Contact Lead Kit Implanted:Qty: 1 on 05/02/2020 by Gloria Pardo MD at OR [facility] N/A: Back [employer] : PAIN MGMT 08/15/2021 AZ-2408-5 6 / [id number] / [id number] Clik X Mri [place] Implanted:Qty: 1 on 05/02/2020 by Gloria Pardo MD at OR [facility] N/A: Back [employer] : PAIN MGMT 04/04/2022 [id number] / / [id number] [facility] Ryan Thornton [id number] - [id number] Implanted:Qty: 1 on 02/08/2022 at [facility] COOK : DIAGNOSTIC INTERVENTION [id number] 10/10/2024 [id number] / / [id number] documented as of this encounter Visit Diagnoses Diagnosis ILD (interstitial lung disease) (HCC)- Primary Postinflammatory pulmonary fibrosis Asbestosis (HCC) 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 Please select and document on the appropriate albuterol product order. *Dilute with 0.9% saline IF needed Given 11/27/2023 8:46 AM EDT 2.5 mg documented in this encounter Advance Directives Latest [...] the patient have Health Care Power of Orchestra Teacher? No Full Code 12/13/2015 11:19 AM 12/16/2015 5:05 PM This order reflects the patients wishes and were consensually agreed upon. Question Answer Comments Discussion of Advance Directives occurred with: Patient Does the patient have a Living Will? No Does the patient have Health Care Power of Orchestra Teacher? No Healthcare Agents on File Name Relationship Healthcare Agent Relationshi p Communication Manfred Levy Adult Child Health Care Repr esentative (appointed verbally by patient or by statute hierarchy) Care Teams Regional Facilities Manager Relationship Specialty Start Date End Date Manav De La Vega DO [address] [place] [address] PCP - General Family Medicine 04/16/18 documented as of this encounter
--- OUTSIDE RECORDS SUMMARY | 2024-01-09 19:35 | External Medical Summary | Summary of Care ---
Author Name Unknown Organization [facility] Address [address] [place] [address] Phone [phone] Care Team Providers Care Drug Discovery Informatics Specialist Name Role Phone Mat De La Vegaleeanne Jonesadeline Primary Care Provider Reason for Visit * Reason Comments Follow Up OSMAN 10/17 Encounter Details Date Type Department Care Team (Late st Contact Info) Description 12/08/2023 11:30 AM EDT Telemedicine [facility], [facility] [address] [place] [address] Eva Turner PA-C [address] [place] [address] Chronic radicular cervical pain* Allergies Active Allergy Reactions Criticality Noted Date Comments Codeine Itching 05/20/2012 adverse reactions In large amounts only Gluten Itching 05/29/2005 Breaking out in blisters Gluten Meal Low 11/28/2022 Other reaction(s): rash Iodine Itching 02/28/2011 oral Atorvastatin Calcium Muscle pain 02/21/2014 Meloxicam Renal complications Medium 09/24/2017 Penicillins Rash 08/16/2002 Tramadol Hcl 08/07/2011 Bad stomach problems documented as of this encounter (statuses as of 12/08/2023) Medications Medication Sig Dispensed Refills Start Date [...] Other (pain). 120 Tablet 0 11/25/2023 Active predniSONE 50 MG Oral Tablet (Deltasone)Indicat ions:H/O allergy to radiographic contrast media Take 1 tablet by mouth 13 hours prior and 1 tablet 1 hour prior to scheduled procedure. Take with food and water. 2 Tablet 0 08/26/2023 4 Discontinu ed(Medicat ion List Clean Up) diphenhydrAMINE HCl 50 MG Oral TabletIndications: H/O allergy to radiographic contrast media Take 1 capsule by mouth one hour prior to scheduled injection. 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 Oxygen dependent 08/20/2023 ACE (obstructive sleep apnea) 08/20/2023 Lumbar degenerative disc disease 08/19/2023 Generalized osteoarthritis 08/19/2023 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 11/21/2022 Coronary artery disease invo lving [place] coronary artery of [place] heart without angina pectoris 11/22/2021 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 ILD (interstitial lung disease) 09/27/2021 Atherosclerosis of aorta 08/02/2021 Dyslipidemia 12/15/2019 Chronic pain 06/29/2018 HTN, goal below 140/90 04/16/2018 BPH without obstruction/lower urinary tract symp toms 04/16/2018 Controlled substance agreement signed 04/16/2018 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 Celiac disease 11/20/2006 Overview: well controlled with diet documented as of this encounter (statuses as of 12/08/2023) Resolved Problems Problem Noted Date Diagnosed Date [...] Prediabetes protocol History of colon polyps 12/15/2018 12/0 01/2023 Systolic ejection murmur 04/16/201801/2023 S/P lumbar fusion [...] as of this encounter (statuses as of 12/08/2023) Immunizations Name Administration Dates Next Due COVID-19 mRNA, LNP-s, No Pre serve, 2-Dose Series (Pfizer) 12/07/2020,11/16/2020 COVID-19, LNP-s, No Preserve , Justice-sucrose, Ages 12+ (Pfizer) 01/04/2022 Covid-19, Mrna, Lnp-s, Pf, B ivalent, 30 Mcg, IM, 12 yrs and above (Pfizer) 10/11/2022 Pneumococcal Conjugate Vacc, 13 Valent (Prevnar) 09/29/2012 Pneumococcal Conjugate Vacci ne, 20-valent ([id number]) 08/13/2023 Pneumococcal Polysaccharide PPV23 (Pneumovax) 06/07/2015 Season [...] as of this encounter Progress Notes * Eva Turner PA-C - 12/08/2023 11:18 AM EDT Name: Michele Levy Date: 12/08/2023 After connecting to the patient via telephone, the patient was identified by name and date of . Patient was then informed that this was a telephone call only visit. The patient agreed to participate. Visit Disposition: Routine follow-up Total call duration five minutes. HPI: Michele Levy is a 83 year old male known to the Pain Management clinic presents for follow up after interlaminar PATRICK C7/T1 on 10/17/23. Admits at least 75% pain reduction. Also notes decreasedparesthesia R bicep and forearm since procedure. Locates pain intermittently in neck and R posterior should. Continued paresthesia R pinky, although notes previous injections did not help with this. Denies progressive UE weakness or dexterity changes. Denies bowel/bladder dysfunction. Using hydrocodone-acetaminophen, zanaflex, gabapentin, voltaren gel, tylenol for pain relief. Pleased with results. Significant hx cervical and lumbar injections. S/P lumbar SCS explant December 2019 due to infection. Also undergoing lumbar facet work up, confirmatory block scheduled 01/18. +++ allergy list including mobic, iodine, tramadol. 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 COLONOSCOPY, GI REFERRAL OP 08/04/06 adenomatous--repeat 5 years COLORECTAL CANCER SCREEN; NOT AT RISK 02/28/11 repeat in 5 years EGD, FLEXIBLE, DIAGNOSTIC 04/26/2013 UPPER GI ENDOSCOPY DIAGNOSTIC performed [place] Paco Nowak [place] [facility] [place], FLEXIBLE, DIAGNOSTIC 07/12/2013 UPPER GI ENDOSCOPY DIAGNOSTIC performed by Paco Nowak MD [place] [facility] [place]GD, FLEXIBLE, DIAGNOSTIC 01/04/2014 ESOPHAGOGASTRODUODENOSCOPY (EGD), FLEXIBLE, TRANSORAL, DIAGNOSTIC performed by Angel Douglass MD at ENDOSCOPY [facility] EGD, FLEXIBLE, DIAGNOSTIC 06/30/2014 normal bx, repeat 1 yr/ESOPHAGOGASTRODUODENOSCOPY (EGD), FLEXIBLE, TRANSORAL, DIAGNOSTIC performed by Angel Douglass MD at [facility] EGD, FLEXIBLE, DIAGNOSTIC 07/20/2015 inflammation on bx, HH, repeat 2 yrs/ESOPHAGOGASTRODUODENOSCOPY (EGD), FLEXIBLE, TRANSORAL, DIAGNOSTIC performed by Angel Douglass MD at ENDOSCOPY [facility] EGD, FLEXIBLE, DIAGNOSTIC 08/26/2017 Barretts, hiatal hernia, repeat 2 yrs/ESOPHAGOGASTRODUODENOSCOPY (EGD), FLEXIBLE, TRANSORAL, DIAGNOSTIC performed by Angel Douglass MD at [facility] EGD, FLEXIBLE, DIAGNOSTIC 10/13/2019 Barretts/ESOPHAGOGASTRODUODENOSCOPY (EGD), FLEXIBLE, TRANSORAL, DIAGNOSTIC performed by Angel Douglass MD at [facility] EGD, FLEXIBLE, W/BIOPSY 11/20/06 paths-normal EVAL NEUROSTIM PULSE GEN, W/ REPROGRAM N/A 10/20/2017 NEUROSTIMULATOR PULSE GENERATOR/ TRANSMITTER, WITH INTRAOPERATIVE OR SUBSEQUENT PROGRAMMING performed by Gloria Pardo MD at OR [facility] EVAL NEUROSTIM PULSE GEN, W/ REPROGRAM N/A 12/01/2017 NEUROSTIMULATOR PULSE GENERATOR/ TRANSMITTER, WITH INTRAOPERATIVE OR SUBSEQUENT PROGRAMMING performed by Gloria Pardo MD at OR [facility] EVAL NEUROSTIM PULSE GEN, W/ REPROGRAM N/A 05/02/2020 NEUROSTIMULATOR PULSE GENERATOR/ TRANSMITTER, WITH INTRAOPERATIVE OR SUBSEQUENT PROGRAMMING performed by Gloria Pardo MD at OR [facility] IMPLANT EPIDURAL NEUROELECTRODES N/A 10/20/2017 PERCUTANEOUS IMPLANTATION NEUROSTIMULATOR EPIDURAL performed by Gloria Pardo MD at OR [facility] IMPLANT EPIDURAL NEUROELECTRODES N/A 12/01/2017 PERCUTANEOUS IMPLANTATION NEUROSTIMULATOR EPIDURAL performed by Gloria Pardo MD at OR [facility] IMPLANT EPIDURAL NEUROELECTRODES N/A 05/02/2020 PERCUTANEOUS IMPLANTATION NEUROSTIMULATOR EPIDURAL performed by Gloria Pardo MD at OR [facility] IMPLANT SPINAL NEURORECEIVER N/A 12/01/2017 INSERTION OR REPLACEMENT SPINAL NEUROSTIMULATOR GENERATOR performed by Gloria Pardo MD at OR [facility] IMPLANT SPINAL NEURORECEIVER N/A 05/02/2020 INSERTION OR REPLACEMENT SPINAL NEUROSTIMULATOR GENERATOR performed by Gloria Pardo MD at OR [facility] INFORMATION Bilateral knee arthroscopy INFORMATION Bilateral shoulder arthroscopy INFORMATION 12/01/2017 Precision Montage Neurostimulator model# SC-1200 leads# [id number] INJECT DX/THER SUBSTANCE INTERLAMINAR CERVICAL/THORACIC W IMAGE GUIDE 09/14/2020 INJECTION SPINE LUMBAR CERVICAL OR THORACIC performed by Cortez Heart DO at OR [facility] INJECT DX/THER SUBSTANCE INTERLAMINAR CERVICAL/THORACIC W IMAGE GUIDE 10/17/2023 INJECTION SPINE LUMBAR CERVICAL OR THORACIC performed by Kevon Vela DO at OR [facility] INJECT DX/THER SUBSTANCE INTERLAMINAR LUMBAR/SACRAL W IMAGE GUIDE N/A 10/25/2016 INJECTION SPINE LUMBAR OR SACRAL performed by Glroia Pardo MD at OR [facility] INJECT DX/THER SUBSTANCE INTERLAMINAR LUMBAR/SACRAL W IMAGE GUIDE N/A 01/17/2017 INJECTION SPINE LUMBAR OR SACRAL performed by Gloria Pardo MD at OR [facility] INJECT DX/THER SUBSTANCE INTERLAMINAR LUMBAR/SACRAL W IMAGE GUIDE N/A 06/23/2017 INJECTION SPINE LUMBAR OR SACRAL performed by Gloria Pardo MD at OR [facility] INJECT DX/THER SUBSTANCE INTERLAMINAR LUMBAR/SACRAL W IMAGE GUIDE N/A 08/29/2017 INJECTION SPINE LUMBAR OR SACRAL performed by Gloria Pardo MD at OR [facility] IR ASPIRATION ABSCESS/COLLECTION 02/08/2022 L-/S-SPINE PARAVERTEBRAL FACET INJ,1 LEVEL Right 08/04/2023 L-/S-SPINE PARAVERTEBRAL FACET INJ, 1 LEVEL (INTRAARTICULAR) performed by Kevon Vela DO at OR [facility] L-/S-SPINE PARAVERTEBRAL FACET INJ,1 LEVEL 11/12/2023 L-/S-SPINE PARAVERTEBRAL FACET INJ, 1 LEVEL performed by Kevon Vela DO at OR [facility] L-/S-SPINE PARAVERTEBRL FACET INJ,2 LEVELS Right 08/04/2023 L-/S-SPINE PARAVERTEBRAL FACET INJ, 2 LEVELS (INTRAARTICULAR) performed by Kevon Vela DO at OR [facility] L-/S-SPINE PARAVERTEBRL FACET INJ,2 LEVELS 11/12/2023 L-/S-SPINE PARAVERTEBRAL FACET INJ, 2 LEVELS performed by Kevon Vela DO at OR [facility] LUMBAR HEMILAMINECTOMY Right 12/13/2015 LAMINOTOMY DECOMPRESSION NERVE ROOT LUMBAR performed by Chapin Ortega DO at OR [facility] LUMBAR SPINE FUSION W/BONE GRAFT 08/2016 PROSTHETIC MAT/MESH, ABD, NECROTIC, REMOVAL N/A 01/29/2022 REMOVAL MESH ABDOMINAL WALL NECROTIZING SOFT TISSUE INFECTION performed by Tom Broderick MD [place] [facility] REMOVAL OF APPENDIX 1981 REMOVE GALLBLADDER 1981 REPAIR INITIAL INCISIONAL OR VENTRAL HERNIA; REDUCIBLE 2001 with mesh REVISE/REMOVE SPINAL NEURORECEIVER N/A 01/06/2020 REVISION OR REMOVAL IMPLANTED SPINAL NEUROSTIMULATOR performed by Gloria Pardo MD at OR [facility] UPPER ENDOSCOPY GI REFERRAL OP 08/28/05 cadet's esophagus-neg for dysplasia or carcinoma Current Outpatient Medications Medication Sig Dispense Refill [...] in the morning. For constipation. 15Tablet 0 Pantoprazole Sodium 40 MG Oral Tablet [...] TABLET IN THE EVENING 315 Tablet 3 metFORMIN HCl ER 500 MG [...] needed for Muscle spasms. 60 Tablet 1 Ondansetron HCl 4 MG Oral Tablet Take 1 Tablet by mouth every 6 hours as needed for Nausea. (Patient not taking: Reported on 11/27/2023) 30 Tablet 0 DULoxetine HCl 60 MG Oral Capsule Delayed [...] taking: Reported on 09/23/2023) 40 Tablet 2 predniSONE 50 MG Oral Tablet (Deltasone) Take 1 tablet by mouth 13 hours prior and 1 tablet 1 hour prior to scheduled procedure. Take with food and water. (Patient not taking: Reported on 11/27/2023) 2 Tablet 0 diphenhydrAMINE HCl 50 MG Oral Tablet Take 1 capsule by mouth one hour prior to scheduled injection. (Patient not taking: Reported on 11/27/2023) 1 Tablet 0 Ezetimibe 10 MG Oral Tablet (Zetia) [...] taking: Reported on 11/27/2023) 25 Tablet 5 HYDROcodone-Acetaminophen 10-325 MG Oral Tablet Take 1 Tablet by mouth every 6 hours as needed for Other (pain). 120 Tablet 0 Boostrix 5-2.5-18.5 LF-MCG/0.5 Suspension Prefilled Syringe (Jkphcby-Whlhum-Cdvyb Pertussis) Injectinto a large muscle as directed 0.5 mL 0 Current Facility-Administered Medications Medication Dose Route Frequency Provider Last Rate Last Admin Albuterol Sulfate (Proventil) (2.5 MG/3ML) 0.083% inhalation solution 2.5 mg 2.5 mg Nebulizer PRN Deondre Grimes MD Albuterol Sulfate (Proventil) (5 MG/ML) 0.5% *conc* inhalation solution 2.5 mg 2.5 mg Nebulizer PRNDDeondre marshall MD 2.5 mg at 11/27/23 0846 Review of patient's allergies indicates: Allergen Reactions Meloxicam Renal complications Codeine Itching adverse reactions In large amounts only Gluten Itching Breaking out in blisters Iodine Itching oral Lipitor [Atorvastatin Calcium] Muscle pain Penicillins Rash Ultram [Tramadol Hcl] Bad stomach problems Gluten Meal Other reaction(s): rash ASSESSMENT: Cervical radicular pain RECOMMENDATION: Admits significant relief of neck and UE pain that is prolonged with injection therapy. Can complete daily activities with minimal neck discomfort. Decreased paresthesia R UE as well. Encouraged to continue conservative care including home exercise/stretching program and medication management. Advised to call if pain returns, consider repeat OSMAN. Follow up as needed. Reminded him of upcoming lumbar injection in January. Total call duration five minutes. vEa Turner PA-C 12/08/2023 documented in this encounter Plan of Treatment Upcoming Encounters Date Type Department Care Team (Latest Contact Info) Description 01/19/2024 8:00 AM EDT Hospital Encounter [facility] Operating [facility] [address] [place] [phone] Mirian, Max Ozzy, DO [address] [place] [phone] 01/19/2024 8:00 AM EDT - 01/19/2024 8:25 AM EDT Surgery [facility], Operating Room [facility] [address] [place] [id number] Kevon Vela, DO [address] [place] [phone] L-/S-SPINE PARAVERTEBRAL FACET INJ, 1 LEVEL 01/28/2024 8:30 AM EDT Office Visit Orthopaedics [facility] [address] [place] [address] Wilfredo Vázquez, DO [address] [place] [address] 03/01/2024 1:00 PM EDT Imaging Radiology [facility] [address] [place] [address] 05/03/2024 12:00 PM EDT Office Visit Family Practice [facility] [address] [place] [address] Manav De La Vega, DO [address] [place] [address] Scheduled Procedures Name Priority Associated Diagnoses Date/Ti me L-/S-SPINE PARAVERTEBRAL FACET INJ, 1 LEVEL Spondylosis of lumbar region without myelopathy or radiculopathy 01/19/2024 8:00 AM EDT L-/S-SPINE PARAVERTEBRAL FACET INJ, 2 LEVELS Spondylosis of lumbar region without myelopathy or radiculopathy 01/19/2024 8:00 AM EDT COLONOSCOPY FLEXIBLE PROXIMAL DIAGNOSTIC Recall History of colon polyps Health Maintenance Due Date Last Done Comments Cadet's Esophagus Surveilance 10/13/2022 10/13/2019, 10/13/2019, 08/26/2017, Additional [...] this encounter Medical Devices Implanted Type Area Tenterer Device Identifier Shelf Expiration Date Model / Serial / Lot 15cm X 20cm Xenmatrix Surgical Graft, Rectangle Implanted:Qty: 1 on 01/29/2022 by Tom Broderick MD [place] [facility] Graft N/A: Abdomen CR BARD : DAVOL [id number] 09/11/2022 [id number] / [id number] / [id number] Trial Lead Kit 50 Cm 16 Contact Implanted:Qty: 1 on 10/20/2017 by Gloria Pardo MD at OR [facility] N/A: Spine Thoracic Ceradis : PAIN MGMT 08/08/2019 [facility] [place]E / [id number] / Description:T9, 10,11 Avista Mri 58 Cm 8 Contact Lead Kit Implanted:Qty: 1 on 12/01/2017 by Gloria Pardo MD at OR [facility] N/A: Back [employer] : PAIN MGMT 06/17/2019 [facility] [place] 6 / [id number] / Avista Mri 56 Cm 8 Contact Lead Kit Implanted:Qty: 1 on 12/01/2017 by Gloria Pardo MD at OR [facility] N/A: Back [employer] : PAIN MGMT 06/17/2019 [facility] [place] 6 / [id number] / Pulse Generator Kit Implanted:Qty: 1 on 12/01/2017 by Gloria Pardo MD at OR [facility] N/A: Back [employer] : PAIN MGMT 08/21/2019 [place]-1200 / [id number] / Fixate Suturing Device Implanted:Qty: 1 on 12/01/2017 by Gloria Pardo MD at OR [facility] N/A: Back [employer] : PAIN MGMT 09/25/2021 -201-01 / / [id number] Clik X Mri [place] Implanted:Qty: 1 on 12/01/2017 by Gloria Pardo MD at OR [facility] N/A: Back [employer] : PAIN MGMT 07/15/2019 IL-4319 / / [id number] Generator Implantable Pulse - [id number] - [id number] Implanted:Qty: 1 on 05/02/2020 by Gloria Pardo MD at OR [facility] N/A: Back [employer] : PAIN MGMT 07/27/2021 [id number] / [id number] / Device Fixate Suturing - [id number] Implanted:Qty: 1 on 05/02/2020 by Gloria Pardo MD at OR [facility] N/A: [facility] Ceradis [facility] 03/21/2024 [id number] / / [id number] Avista Mri 56cm 8 Contact Lead Kit Implanted:Qty: 1 on 05/02/2020 by Gloria Pardo MD at OR [facility] N/A: Back [employer] : PAIN MGMT 08/05/2021 [facility] [place] 6 / [id number] / [id number] Avista Mri 56cm 8 Contact Lead Kit Implanted:Qty: 1 on 05/02/2020 by Gloria Pardo MD at OR [facility] N/A: Back [employer] : PAIN MGMT 08/15/2021 SC-2408-5 6 / [id number] / [id number] Clik X Mri [place] Implanted:Qty: 1 on 05/02/2020 by Gloria Pardo MD at OR [facility] N/A: Back [employer] : PAIN MGMT 04/04/2022 IL-4319 / / [id number] Cath Ryan [place] [id number] - [id number] Implanted:Qty: 1 on 02/08/2022 at [facility] : DIAGNOSTIC INTERVENTION [id number] 10/10/2024 [id number] / / [id number] documented as of this encounter Visit Diagnoses Diagnosis Chronic radicular cervical pain- Primary Spondylosis of lumbar region without myelopathy or [...] the patient have Health Care Power of Turning And Beading Machine Operator? No Full Code 12/13/2015 11:19 AM 12/16/2015 5:05 PM This order reflects the patients wishes and were consensually agreed upon. Question Answer Comments Discussion of Advance Directives occurred with: Patient Does the patient have a Living Will? No Does the patient have Health Care Power of Turning And Beading Machine Operator? No Healthcare Agents on File Name Relationship Healthcare Agent Relationshi p Communication Manfred Levy Adult Child Health Care Repr esentative (appointed verbally by patient or by statute hierarchy) Care Teams Drug Discovery Informatics Specialist Relationship Specialty Start Date End Date Manav De La Vega DO [address] [place] [address] PCP - General Family Medicine 04/16/18 documented as of this encounter
--- OUTSIDE RECORDS SUMMARY | 2024-01-09 19:36 | External Medical Summary | Summary of Care ---
Author Name Unknown Organization [facility] Address [address] [facility] [place] [address] Phone [phone] Care Team Providers Care Debt Recovery Officer Name Role Phone Anna De La Vega DO Primary Care Provider Reason for Visit * Reason Onset Date Comments Medication Refill 11/24/2023 Encounter Details Date Type Department Care Team (Late st Contact Info) Description 11/24/2023 Refill Family Practice [facility] [address] [place] [address] Anna De La Vega DO [address] [place] [address] Lumbar radiculitis Allergies Active Allergy Reactions Criticality [...] as of this encounter (statuses as of 11/25/2023) Medications Medication Sig Dispensed Refills Start Date [...] 08/26/2023 Active diphenhydrAMINE HCl 50 MG Oral TabletIndications: H/O [...] chest pain 25 Tablet 5 10/22/2023 Active HYDROcodone-Acetam inophen 10-325 MG Oral TabletIndications: Lumbar radiculitis Take 1 Tablet by mouth every 6 hours as needed for Other (pain). 120 Tablet 0 11/25/2023 Active HYDROcodone-Acetam inophen 10-325 MG Oral TabletIndications: Lumbar radiculitis Take 1 Tablet by mouth every 6 hours as needed for Other (pain). 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 11/21/2022 Coronary artery disease invo lving [place] coronary artery of [place] heart without angina pectoris 11/22/2021 Pleural plaque [...] as of this encounter (statuses as of 11/25/2023) Resolved Problems Problem Noted Date Diagnosed Date [...] as of this encounter (statuses as of 11/25/2023) Immunizations Name Administration Dates Next Due COVID-19 mRNA, LNP-s, No Pre serve, 2-Dose Series (Pfizer) 12/07/2020,11/16/2020 COVID-19, LNP-s, No Preserve , Justice-sucrose, Ages 12+ (Pfizer) 01/04/2022 Covid-19, Mrna, Lnp-s, Pf, B ivalent, 30 Mcg, IM, 12 yrs and above (Pfizer) 10/11/2022 Pneumococcal Conjugate Vacc, 13 Valent (Prevnar) 09/29/2012 Pneumococcal Conjugate Vacci ne, 20-valent ([id number]) 08/13/2023 Pneumococcal Polysaccharide PPV23 (Pneumovax) 06/07/2015 Season [...] - Anna De La Vega DO - 11/25/2023 9:23 AM EDT Signed Prescriptions: Disp Refills HYDROcodone-Acetaminophen 10-325 MG Oral T*120 Ta*0 Sig: Take 1 Tablet by mouth every 6 hours as needed for Other (pain). Authorizing Provider: ANNA DE LA VEGA * Telephone Encounter - Reta Suarez LPN - 11/24/2023 9:40 AM EDT Pending Prescriptions: Disp Refills HYDROcodone-Acetaminophen 10-325 MG Oral *120 Ta*0 Sig: Take 1 Tablet by mouth every 6 hours as needed for Other (pain). 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 ILD (interstitial lung disease) (HCC) J84.9 Coronary artery disease involving [place] coronary artery of [place] heart without angina pectoris I25.10 Spinal cord [...] 9:00 AM EDT PulmDiagnostic Pulmonary Function Lab, [facility] [address] [place] [address] [address], [address] [place] [address] 11/27/2023 6:00 PM EDT Office Visit Family Practice [facility] [address] [place] [address] Anna De La Vega, [address] [place] [address] 12/08/2023 11:30 AM EDT Telemedicine Interventional Pain Center, [facility] [address] [place] [address] Eva Turner PA-C [address] [place] [address] 01/19/2024 8:00 AM EDT Hospital Encounter [facility], Operating Room [facility] [address] [place] [address] Kevon Vela, DO [address] [place] [address] 01/19/2024 8:00 AM EDT - 01/19/2024 8:25 AM EDT Surgery [facility], Operating Room [facility] [address] [place] [address] Kevon Vela, DO [address] [place] [address] L-/S-SPINE PARAVERTEBRAL FACET INJ, 1 LEVEL 01/28/2024 8:30 AM EDT Office Visit Orthopaedics [facility] [address] [place] [address] Wilfredo Vázquez, DO [address] [place] [address] 03/01/2024 1:00 PM EDT Imaging Radiology [facility] [address] [place] [address] 05/03/2024 12:00 PM EDT Office Visit Family Practice [facility] [address] [place] [address] Anna De La Vega, DO [address] [place] [address] Scheduled Procedures Name Priority Associated Diagnoses Date/Ti [...] 12/07/2020, Additional history exists GFR 03/31/2024 03/31/2023, 0702/2022, 02/09/2022, Additional history exists Depression Screening 08/20/2024 [...] this encounter Medical Devices Implanted Type Area Animal Hospital Clerk Device Identifier Shelf Expiration Date Model / Serial / Lot 15cm X 20cm Xenmatrix Surgical Graft, Rectangle Implanted:Qty: 1 on 01/29/2022 by Tom Broderick MD at [place] [facility] [place] Graft N/A: Abdomen CR BARD : DAVOL [id number] 09/11/2022 [id number] / [id number] / [id number] Trial Lead Kit 50 Cm 16 Contact Implanted:Qty: 1 on 10/20/2017 by Gloria Pardo MD at OR [facility] N/A: Spine Thoracic [employer] : PAIN MGMT 08/08/2019 ID-2316-5 0E / [id number] / Description:T9, 10,11 Avista Mri 58 Cm 8 Contact Lead Kit Implanted:Qty: 1 on 12/01/2017 by lGoria Pardo MD at OR [facility] N/A: Back [employer] : PAIN MGMT 06/17/2019 ID-2408-5 6 / [id number] / Avista Mri 56 Cm 8 Contact Lead Kit Implanted:Qty: 1 on 12/01/2017 by Gloria Pardo MD at OR [facility] N/A: Back [employer] : PAIN MGMT 06/17/2019 ID-2408-5 6 / [id number] / Pulse Generator Kit Implanted:Qty: 1 on 12/01/2017 by Gloria Pardo MD at OR [facility] N/A: Back [employer] : PAIN MGMT 08/21/2019 ID-1200 / [id number] / Fixate Suturing Device Implanted:Qty: 1 on 12/01/2017 by Gloria Pardo MD at OR [facility] N/A: Back [employer] : PAIN MGMT 09/25/2021 -201-01 / / [id number] Clik X Mri [place] Implanted:Qty: 1 on 12/01/2017 by Gloria Pardo MD at OR [facility] N/A: Back [employer] : PAIN MGMT 07/15/2019 ID-4319 / / [id number] Generator Implantable Pulse - [id number] - [id number] Implanted:Qty: 1 on 05/02/2020 by Gloria Pardo MD at OR [facility] N/A: Back [employer] : PAIN MGMT 07/27/2021 [id number] / [id number] / Device Fixate Suturing - [id number] Implanted:Qty: 1 on 05/02/2020 by Gloria Pardo MD at OR [facility] N/A: Back [employer] 03/21/2024 [id number] / / [id number] Avista Mri 56cm 8 Contact Lead Kit Implanted:Qty: 1 on 05/02/2020 by Gloria Pardo MD at OR [facility] N/A: Back [employer] : PAIN MGMT 08/05/2021 SC-2408-5 6 / [id number] / [id number] Avista Mri 56cm 8 Contact Lead Kit Implanted:Qty: 1 on 05/02/2020 by Gloria Pardo MD at OR [facility] N/A: Back [employer] : PAIN MGMT 08/15/2021 SC-2408-5 6 [id number] / [id number] Clik X Mri [place] Implanted:Qty: 1 on 05/02/2020 by Gloria Pardo MD at OR [facility] N/A: Back [employer] : PAIN MGMT 04/04/2022 ID-4319 / / [id number] Trisha Sniderson Norberto [id number] - [id number] Implanted:Qty: 1 on 02/08/2022 at [facility] COOK : DIAGNOSTIC INTERVENTION [id number] 10/10/2024 [id number] / / [id number] documented as of this encounter Visit Diagnoses [...] the patient have Health Care Power of Senior Applications Architect? No Full Code 12/13/2015 11:19 AM 12/16/2015 5:05 PM This order reflects the patients wishes and were consensually agreed upon. Question Answer Comments Discussion of Advance Directives occurred with: Patient Does the patient have a Living Will? No Does the patient have Health Care Power of Senior Applications Architect? No Healthcare Agents on File Name Relationship [facility] Manfred Levy Adult Child Health Care Repr esentative (appointed verbally by patient or by statute hierarchy) Care Teams Debt Recovery Officer Relationship Specialty Start Date End Date Anna De La Vega DO [address] [place] [address] PCP - General Family Medicine 04/16/18 documented as of this encounter
--- OUTSIDE RECORDS SUMMARY | 2024-01-09 19:36 | External Medical Summary | Summary of Care ---
Author Name Unknown Organization [facility] Address [address] [facility] [place] [address] Phone [phone] Care Team Providers Care Adult Basic Education Instructor Name Role Phone Manav De La Vega DO Primary Care Provider Reason for Visit * Reason Comments Back Pain Encounter Details Date Type Department Care Team (Late st Contact Info) Description 11/13/2023 11:00 AM EST Telemedicine Interventional Pain Center, [facility] [address] [place] [address] [facility] Nurse Phone Call Interventional Pain [facility] [address] [place] [address] Spondylosis of lumbar region without myelopathy or radiculopathy* Allergies Active Allergy Reactions Criticality Noted Date [...] status 11/21/2022 Coronary artery disease invo lving [place] coronary artery of [place] heart without angina pectoris 11/22/2021 Pleural plaque [...] (Prevnar) 09/29/2012 Pneumococcal Conjugate Vacci ne, 20-valent (Mvdleof43) 08/13/2023 Pneumococcal Polysaccharide PPV23 (Pneumovax) 06/07/2015 Season [...] as of this encounter Progress Notes * Clari Salcedo LPN - 11/13/2023 9:07 AM EST Patient reports 100% improvement for at least 8hrs after facet injection. Unloaded firewood, did dishes, outside work without any pain. Patient has already had facet inj with steroid previously. Imaging planned: Yes, Fluoroscopy First or second MBB/Facet: FIRST Intend to assess for RFA?: Yes Levels planned (max 2 levels, indicate laterality): Right L4, l5/6 Anesthesia or Conscious Sedation Planned? (if yes, ABN must be complete as this will not be covered): No Multiple procedures planned for same day?: No Axial moderate/severe neck or low back pain, causing a functional deficit measured on a pain or disability scale?: No Baseline Pain score: 2 out of 10 Pain score s/p 1st diagnostic: 0 = none Has the pain been present for > 3 months?: Yes Has the pain failed to respond to conservative care?: Yes Is there untreated radiculopathy or neurogenic claudication in the same body region?: No Is there evidence of non-facet pathology that could explain the source of the pain which has not been addressed?: No Is there the intention to perform a second diagnostic block if the first is positive?: Yes documented in this encounter Plan of Treatment Upcoming Encounters Date Type Department Care Team (Latest Contact Info) Description 11/27/2023 9:00 AM EDT PulmDiagnostic Pulmonary Function Lab, [facility] [address] [place] [address] [address], [address] [place] [address] 11/27/2023 6:00 PM EDT Office Visit Family Practice [facility] [address] [place] [address] Manav De La Vega DO [address] [place] [address] 12/08/2023 11:30 AM EDT Telemedicine Interventional Pain Center, [facility] [address] [place] [address] Eva Turner PA-C [address] [place] [address] 01/19/2024 8:00 AM EDT Hospital Encounter [facility], Operating Room [facility] [address] [place] [address] Kevon Vela, DO [address] [place] [address] 01/19/2024 8:00 AM EDT - 01/19/2024 8:25 AM EDT Surgery OR [facility], Operating Room [facility] [address] [place] [address] Kevon Vela, DO [address] [place] [address] L-/S-SPINE PARAVERTEBRAL FACET INJ, 1 LEVEL 01/28/2024 8:30 AM EDT Office Visit Orthopaedics [facility] [address] [place] [address] Wilfredo Vázquez, DO [address] [place] [address] 03/01/2024 1:00 PM EDT Imaging Radiology [facility] [address] [place] [address] 05/03/2024 12:00 PM EDT Office Visit Family Practice [facility] [address] [place] [address] Manav De La Vega, DO [address] [place] [address] Scheduled Orders Name Type Priority Associated Diagnoses Orde r Schedule L-/S-SPINE PARAVERTEBRAL FACET INJ,1 LEVEL Procedures Routine Spondylosis of lumbar region without myelopathy or radiculopathy Expected: 11/14/2023, Expires: 02/11/2024 L-/S-SPINE PARAVERTEBRL FACET INJ,2 LEVELS Procedures Routine Spondylosis of lumbar region without myelopathy or radiculopathy Expected: 11/14/2023, Expires: 02/11/2024 Scheduled Procedures Name Priority Associated Diagnoses Date/Ti [...] this encounter Medical Devices Implanted Type Area Hot Billet Shear Operator Device Identifier Shelf Expiration Date Model / Serial / Lot 15cm X 20cm Xenmatrix Surgical Graft, Rectangle Implanted:Qty: 1 on 01/29/2022 [place] [facility] [place] N/A: Abdomen CR BARD : DAVOL [id number] 09/11/2022 [id number] / [id number] / [id number] Trial Lead Kit 50 Cm 16 Contact Implanted:Qty: 1 on 10/20/2017 by Gloria Pardo MD at OR [facility] N/A: Spine Thoracic [employer] : PAIN MGMT 08/08/2019 NV-2316-5 0E / [id number] / Description:T9, 10,11 Avista Mri 58 Cm 8 Contact Lead Kit Implanted:Qty: 1 on 12/01/2017 by Gloria Pardo MD at OR [facility] N/A: Back [employer] : PAIN MGMT 06/17/2019 NV-2408-5 6 / [id number] / Avista Mri 56 Cm 8 Contact Lead Kit Implanted:Qty: 1 on 12/01/2017 by Gloria Pardo MD at OR [facility] N/A: Back [employer] : PAIN MGMT 06/17/2019 NV-2408-5 6 / [id number] / Pulse Generator Kit Implanted:Qty: 1 on 12/01/2017 by Gloria Pardo MD at OR [facility] N/A: Back [employer] : PAIN MGMT 08/21/2019 NV-1200 / [id number] / Fixate Suturing Device Implanted:Qty: 1 on 12/01/2017 by Gloria Pardo MD at OR [facility] N/A: Back [employer] : PAIN MGMT 09/25/2021 -201-01 / / [id number] Clik X Mri [place] Implanted:Qty: 1 on 12/01/2017 by Gloria Pardo MD at OR [facility] N/A: Back [employer] : PAIN MGMT 07/15/2019 NV-4319 / / [id number] Generator Implantable Pulse - [id number] - [id number] Implanted:Qty: 1 on 05/02/2020 by Gloria Pardo MD at OR [facility] N/A: Back [employer] : PAIN MGMT 07/27/2021 [id number] / [id number] / Device Fixate Suturing - [id number] Implanted:Qty: 1 on 05/02/2020 by Gloria Pardo MD at OR [facility] N/A: Back [employer] 03/21/2024 [id number] 010 / / [id number] Avista Mri 56cm 8 Contact Lead Kit Implanted:Qty: 1 on 05/02/2020 by Gloria Pardo MD at OR [facility] N/A: Back [employer] : PAIN MGMT 08/05/2021 NV-2408-5 6 / [id number] / [id number] Avista Mri 56cm 8 Contact Lead Kit Implanted:Qty: 1 on 05/02/2020 by Gloria Pardo MD at OR [facility] N/A: Back [employer] : PAIN MGMT 08/15/2021 NV-2408-5 6 / [id number] / [id number] Clik X Mri [place] Implanted:Qty: 1 on 05/02/2020 by Gloria Pardo MD at OR [facility] N/A: Back [employer] : PAIN MGMT 04/04/2022 [facility] [id number] / / [id number] Trisha Ryan Thornton [id number] - [id number] Implanted:Qty: 1 on 02/08/[address] 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 No Full Code 12/13/2015 11:19 AM 12/16/2015 5:05 PM This order reflects the patients wishes and were consensually agreed upon. Question Answer Comments Discussion of Advance Directives occurred with: Patient Does the patient have a Living Will? No Does the patient have Health Care Power of Canine Service Instructor Trainer? No Healthcare Agents on File Name Relationship Healthcare Agent [facility] Communication Manfred Levy Adult Child Health Care Repr esentative (appointed verbally by patient or by statute hierarchy) Care Teams Adult Basic Education Instructor Relationship Specialty Start Date End Date Manav De La Vega DO [address] [place] [address] PCP - General Family Medicine 04/16/18 documented as of this encounter
--- OUTSIDE RECORDS SUMMARY | 2024-01-09 19:37 | External Medical Summary | Summary of Care ---
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 [M47.816] Procedures L-/S-SPINE PARAVERTEBRAL FACET INJ,1 LEVEL L-/S-SPINE PARAVERTEBRL FACET INJ,2 LEVELS L-/S-SPINE PARAVERTEBRAL FACET INJ, 1 LEVEL L-/S-SPINE PARAVERTEBRAL FACET INJ, 2 LEVELS Referral ID Status Reason Start Date Expiration Date Visits Re quested Visits Authorized [id number] Encounter Details Date Type Department Care Team (Latest Contact Info) Description 11/12/2023 7:41 AM EST - 11/12/2023 9:08 AM EST Hospital Encounter OR [facility], Operating Room [facility] [address] [place] [phone] Kevon Vela DO [address] [place] [id number] Discharge Disposition: Home - Self Care Allergies [...] as of this encounter (statuses as of 11/12/2023) Medications Medication Sig Dispensed Refills Start Date [...] BY MOUTH DAILY 90 Tablet 3 11/21/2022 01/27/2024 Active Gabapentin 600 MG Oral Tablet (Neurontin)Indicati ons:Lumbar radiculitis TAKE 1 TABLET BY MOUTH IN THE MORNING, TAKE 1 AND 1/2 TABLETS AT NOON AND TAKE 1 TABLET IN THE EVENING 315 Tablet 3 11/21/2022 12/17/2023 Active metFORMIN HCl ER 500 MG Oral [...] IN THE MORNING 90 Capsule 3 08/20/2023 08/19/2024 Active guaiFENesin ER 600 MG Oral Tablet [...] IN THE EVENING. 90 Tablet 3 09/17/2023 09/16/2024 Active Isosorbide Mononitrate ER 30 MG Oral Tablet Extended Release 24 Hour (Imdur) take 1 tablet (30 mg) orally daily 30 Tablet 5 10/22/2023 Active HYDROcodone-Acetami nophen 10-325 MG Oral TabletIndications:L umbar radiculitis Take 1 Tablet by mouth every 6 hours as needed for Other (pain). 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 11/21/2022 Coronary artery disease invo lving [place] coronary artery of [place] heart without angina pectoris 11/22/2021 Pleural plaque [...] as of this encounter (statuses as of 11/12/2023) Resolved Problems Problem Noted Date Diagnosed Date [...] as of this encounter (statuses as of 11/12/2023) Immunizations Name Administration Dates Next Due COVID-19 mRNA, LNP-s, No Pre serve, 2-Dose Series (Pfizer) 12/07/2020,11/16/2020 COVID-19, LNP-s, No Preserve , Justice-sucrose, Ages 12+ (Pfizer) 01/04/2022 Covid-19, Mrna, Lnp-s, Pf, B ivalent, 30 Mcg, IM, 12 yrs and above (Pfizer) 10/11/2022 Pneumococcal Conjugate Vacc, 13 Valent (Prevnar) 09/29/2012 Pneumococcal Conjugate Vacci ne, 20-valent ([id number]) 08/13/2023 Pneumococcal Polysaccharide PPV23 (Pneumovax) 06/07/2015 Season [...] Sign Reading Time Taken Comments Blood Pressure 139/73 11/12/2023 9:04 AM EST Pulse 67 11/12/2023 9:04 AM EST Temperature 36.2 C (97.2 F) 11/12/2023 8:22 AM ES T Respiratory Rate 14 11/12/2023 9:04 AM EST Oxygen Saturation 95% 11/12/2023 9:04 AM EST Inhaled Oxygen Concentration - - Weight [...] Instructions * Discharge Instr - AVS* Kevon Vela, - 11/12/2023 9:03 AM EST [facility] [address] [place] [address] Discharge Date: 11/12/2023 You may call jaki [facility] at [phone] during business hours. For after-hours emergencies call 911. Your attending physician at the time of your discharge was: Kevon Vela, DO [address] [place] [address] The information below provides you with the [...] unless otherwise instructed by your family physician, e marketing specialist or the anticoagulation clinic. Additional Instructions: It is recommended that you complete the provided hourly pain/activity log to track your pain relief to help you determine the level of relief you received from this injection. Driving: You may resume driving in 12-24 hours if no weakness is noted . Date you may return to work or school: N/A Follow Up: Please ensure that you have a scheduled telephone follow-up with Mario Toledo's [facility] Pain Management office at [phone] in 1-2 business days to review the results of the injection you received. documented in this encounter Progress Notes * Kevon Vela DO - 11/12/2023 9:03 AM EST [facility] [place] [address] [facility] [phone] OUTPATIENT SURGERY DISCHARGE SUMMARY NOTE Name: Terrance Levy Location: OR [facility]/OR Date: 11/12/2023 Time: 9:03 AM Surgery Date: 11/12/2023 Procedure: Procedure(s): L-/S-SPINE PARAVERTEBRAL FACET INJ, 1 LEVEL L-/S-SPINE PARAVERTEBRAL FACET INJ, 2 LEVELS No laterality found for procedure #1 No laterality found for procedure #2 Surgeon: Surgeon(s): Kevon Vela DO Discharge Diagnosis: lumbar spondylosis After examination of this patient, I have determined he is ready for discharge to home when the patient meets criteria. Discharge instructions were given to the patient. Kevon Vela DO OR [facility], Operating Room [facility] [address] [facility] [phone] documented in this encounter H&P Notes * Kevon Vela DO - 11/12/2023 8:32 AM EST Interventional Pain H&P Subjective: History of Present Illness: Terrance Levy is a 83 year old year-old male with a past medical history significant for lumbar spondylosis who is presenting for right L3,4,5 medial branch block to improve his pain and function. RFA planned. his pain is essentially unchanged since our last office visit with him. ASA 3 AW nml Review of Systems: [...] ORTHO Patient Name: TERRANCE LEVY : 1940 (83y) Male Performing Provider: Wilfredo Vázquez (digitally signed Oct 29, 2023 11:18 EST) Attending: Wilfredo Vázquez (digitally signed Oct 29, 2023 11:18 EST) [Impression] : Procedure note (knee injection), left [...] injectedmusing 1.5 inch, 21 gauge needle from superior lateral approach injected with - Geslyn. Patient tolerated procedure with no significant bleeding or adverse reaction. Patient instructed to call or return to clinic for fever or warmth and redness at injection site for potential infection. Patient also advised as to potential for steroid flare reaction including increased pain and redness at injection site which should be treated with ice and resolve within 24 hours. Wilfredo Vázquez DO Objective Physical Exam: Vital Signs: BP 123/62 | Pulse 62 | Temp 36.2 C (97.2 F) (Tympanic) | Resp 14 | SpO2 95% There is no height or weight on file to calculate BMI. General: No apparent distress. Eyes: pupils equal and round, sclera white, pupils midsize. ENT: mucous membranes moist Resp: Non-labored breathing CV: Extremities warm and well-perfused. Psych: Oriented; affect warm, insight good. Skin: No rashes or lesions appreciated on exposed skin Neuromuscular Exam: Facet loading pos, TTT over right lower back Assessment: Terrance is a 83 year old year-old male with: Lumbar spondylosis Plan: The patient is undergoing right L3,4,5 medial branch blocks #1 today to alleviate his pain and improve his function. The risks, benefits and alternatives to the procedure were reviewed at length and the patient was provided the opportunity to ask questions which were answered to their voiced understanding. Following this comprehensive discussion, the patient opted to proceed. The patient was consented to the procedure following this comprehensive conversation. Kevon Vela DO OR [facility], Operating Room [facility] [address] [facility] [address] documented in this encounter Nursing Notes * Brigette Beckman RN - 11/12/2023 9:05 AM EST Visited by Dr Vela. Verbalized understanding of discharge directions. Ready for discharge to home. * Christina Campos RN - 11/12/2023 9:00 AM EST Band aid applied to area. Patient transferred to PACU 11 via wheelchair * Christina Campos RN - 11/12/2023 8:55 AM EST Patient tolerating pain management injection well. documented in this encounter OR Notes * OR Surgeon - Kevon Vela DO - 11/12/2023 9:00 AM EST Diagnostic Medial Branch Nerve Blocks DATE: 11/12/2023 PHYSICIAN: Kevon Vela DO PREOPERATIVE DIAGNOSIS: Lumbar spondylosis POSTOPERATIVE DIAGNOSIS: Lumbar spondylosis PROCEDURES PERFORMED: 1. L4 diagnostic medial branch nerve block on the right side. 2. Additional levels: L5 and L6 medial branch block on the right side. 3. Fluoroscopy for precise needle localization MONITORS: Automatic blood pressure cuff and pulse oximetry readily available There was no boilermaker's assistant, EBL or drains placed during this procedure. INDICATIONS: We had the pleasure of seeing Terrance Levy ([id number]) in the pain management clinic at [facility] today. The patient has a history of lumbar spondylosis. The patient is here today for diagnostic lumbar medial branch nerve blocks. MEDICATIONS: Current Facility-Administered Medications Medication Dose Route Frequency Provider Last Rate Last Admin lidocaine 1 % inj 15 mg 1.5 mL Subcutaneous Once Kevon Vela DO ALLERGIES: Review of [...] blood pressure instability, seizures, heart block, headaches, and . Alternatives to the procedure were also explained and include: do nothing, surgery, medications, [...] prepped and draped in the standard sterile fashion with ChloraPrep. A surgicalpause (time-out) was performed and was agreed upon by the members of the team. A fluoroscopic view of the lumbar spine was obtained, and the area of interest was identified. Under fluoroscopic guidance a 25-gauge 3.5-inch spinal needle was advanced towards the junction between the transverse process and the superior articular process of the L5 and L6 and vertebral bodiesfor the L4 and L5 medial branch nerves on the right side. Additional needles were placed at the junction of superior articular process and sacral ala at the level of the S1 medial branch nerve on theright side. Full contact with the osseous structures was obtained. Proper needle position was verified in AP and declined views. After this, 0.5 ml of bupivacaine 0.5% was injected at each point. Allneedles were withdrawn. The patient tolerated the procedure well. COMPLICATIONS: None. DISPOSITION: It was recommended that the patient create an hourly pain/activity log to track his pain relief to help him determine the level of relief he received from this injection over the next 12 hours or until the block subsides. 2. The patient was requested to call the pain medicine clinic within the next 1- 2 business days to review these results and was provided the phone number for this. Kevon Vela DO OR [facility], Operating Room [facility] [address] [place] [address] [place] [phone] documented in this encounter Plan of Treatment Upcoming Encounters Date Type Department Care Team (Late st Contact Info) Description 11/13/2023 11:00 AM EST Telemedicine Interventional Pain Center, [facility] [address] [place] [phone] Rafael, Nurse Phone Call Interventional Pain [facility] [address] [place] [phone] 11/27/2023 9:00 AM EDT PulmDiagnostic Pulmonary Function Lab, [facility] [address] [facility] [place] [address] [place], [address] [place] [phone] 11/27/2023 6:00 PM EDT Office Visit Family Practice [facility] [address] [place] [phone] Manav De La Vega, [address] [place] [address] 12/08/2023 11:30 AM EDT Telemedicine Interventional Pain Center, [facility] [address] [place] [phone] Eva Turner PA-C [address] [place] [address] 01/28/2024 8:30 AM EDT Office Visit Orthopaedics [facility] [address] [place] [phone] Wilfredo Vázquez, DO [address] [place] [address] 03/01/2024 1:00 PM EDT Imaging Radiology [facility] 1st Floor, [place] [address] [place] [address] 05/03/2024 12:00 PM EDT Office Visit Family [facility] [address] [place] [phone] Manav De La Vega DO [address] [place] [address] Scheduled Procedures Name Priority Associated Diagnoses Date/Ti me L-/S-SPINE PARAVERTEBRAL FACET INJ, 1 LEVEL Spondylosis of lumbar region without myelopathy or radiculopathy 11/12/2023 8:48 AM EST L-/S-SPINE PARAVERTEBRAL FACET INJ, 2 LEVELS Spondylosis of lumbar region without myelopathy or radiculopathy 11/12/2023 8:48 AM EST COLONOSCOPY FLEXIBLE PROXIMAL DIAGNOSTIC Recall [...] this encounter Medical Devices Implanted Type Area Nutrition Services Worker Device Identifier Shelf Expiration Date Model / Serial / Lot 15cm X 20cm Xenmatrix Surgical Graft, Rectangle Implanted:Qty: 1 on 01/29/2022 by Tom Broderick MD at [place] [facility] [place] Graft N/A: Abdomen CR BARD : DAVOL [id number] 09/11/2022 [id number] / [id number] / [id number] Trial Lead Kit 50 Cm 16 Contact Implanted:Qty: 1 on 10/20/2017 by Gloria Pardo MD at OR [facility] N/A: Spine Thoracic [employer] : PAIN MGMT 08/08/2019 OR-2316-5 0E / [id number] / Description:T9, 10,11 Avista Mri 58 Cm 8 Contact Lead Kit Implanted:Qty: 1 on 12/01/2017 by Gloria Pardo MD at OR [facility] N/A: Back [employer] : PAIN MGMT 06/17/2019 OR-2408-5 6 / [id number] / Avista Mri 56 Cm 8 Contact Lead Kit Implanted:Qty: 1 on 12/01/2017 by Gloria Pardo MD at OR [facility] N/A: Back [employer] : PAIN MGMT 06/17/2019 OR-2408-5 6 / [id number] / Pulse Generator Kit Implanted:Qty: 1 on 12/01/2017 by Gloria Pardo MD at OR [facility] N/A: Back [employer] : PAIN MGMT 08/21/2019 OR-1200 / [id number] / Fixate Suturing Device Implanted:Qty: 1 on 12/01/2017 by Gloria Pardo MD at OR [facility] N/A: Back [employer] : PAIN MGMT 09/25/2021 FB-201-01 / / [id number] Clik X Mri Hindman Implanted:Qty: 1 on 12/01/2017 by Gloria Pardo MD at OR [facility] N/A: Back [employer] : PAIN MGMT 07/15/2019 OR-4319 / / [id number] Generator Implantable Pulse - [id number] - [id number] Implanted:Qty: 1 on 05/02/2020 by Gloria Pardo MD at OR [facility] N/A: Back [employer] : PAIN MGMT 07/27/2021 [id number] / [id number] / Device Fixate Suturing - [id number] Implanted:Qty: 1 on 05/02/2020 by Gloria Pardo MD at OR [facility] N/A: Back [employer] [facility] [place] 03/21/2024 [id number] / / [id number] Avista Mri 56cm 8 Contact Lead Kit Implanted:Qty: 1 on 05/02/2020 by Gloria Pardo MD at OR [facility] N/A: Back [employer] : PAIN MGMT 08/05/2021 OR-2408-5 6 / [id number] / [id number] Avista Mri 56cm 8 Contact Lead Kit Implanted:Qty: 1 on 05/02/2020 by Gloria Pardo MD at OR [facility] N/A: Back [employer] : PAIN MGMT 08/15/2021 OR-2408-5 6 / [id number] / [id number] Clik X Mri Hindman Implanted:Qty: 1 on 05/02/2020 by Gloria Pardo MD at OR [facility] N/A: Back [employer] : PAIN MGMT 04/04/2022 [facility] [id number] / / [id number] Cath Ryan Thornton [id number] - [id number] Implanted:Qty: 1 on 02/08/2022 at [facility] COOK : DIAGNOSTIC INTERVENTION [id number] 10/10/2024 [id number] / / [id number] documented as of this encounter Procedures Procedure Name Priority Date/Time Associated Diagnosis Comments FLUORO INTERVENTIONAL PAIN PROCEDURE NONBILLABLE Routine 11/12/2023 9:08 AM EST documented in this encounter Results * FLUORO INTERVENTIONAL PAIN PROCEDURE NONBILLABLE (11/12/2023 9:08 AM EST) Narrative Scheduling, Silent - 11/12/2023 9:09 AM EST This procedure will not be read by a Radiologist. Please see operative note. Kevon Vela DO RAD FLUOROSCOPY documented in this encounter Administered Medications Inactive Administered Medications - up to 3 most recent administrations Medication Order MAR Action Action Date Dose Rate Site bupivacaine HCl (Sensorcaine) 0.5 % (PF) inj 7.5 mg 7.5 mg (1.5 mL), Injection, ONCE, On Fri11/12/23 at 0900, For 1 dose, Right Given 11/12/2023 8:57 AM EST 1.5 mL documented in this encounter Active and Recently Administered Medications Times are shown in EST. Scheduled Medication Order 11/10/2023 11/11/2023 11/12/2023 bupivacaine HCl (Sensorcaine) 0.5 % (PF) inj 7.5 mg (COMPLETED) 7.5 mg (1.5 mL), Injection, ONCE, On Fri11/12/23 at 0900, For 1 dose, Right 0857 (Given - Provid er: Christina Campos RN) lidocaine 1 % inj 15 mg 15 mg (1.5 mL), Subcutaneous, ONCE, On Fri11/12/23 at 0900, For 1 dose, Right 0900 (Not Given - Pr ovider: Christina Campos RN - Reason: Order Discontinued) documented in this encounter Advance Directives Latest [...] the patient have Health Care Power of Cross Tie Maker? No Full Code 12/13/2015 11:19 AM 12/16/2015 5:05 PM This order reflects the patients wishes and were consensually agreed upon. Question Answer Comments Discussion of Advance Directives occurred with: Patient Does the patient have a Living Will? No Does the patient have Health Care Power of Cross Tie Maker? No Healthcare Agents on File Name Relationship Healthcare Agent [facility] Communication Manfred Levy Adult Child Health Care Repr esentative (appointed verbally by patient or by statute hierarchy) Care Teams Hand Molder Relationship Specialty Start Date End Date Manav De La Vega DO [address] [place] [address] PCP - General Family Medicine 04/16/18 documented as of this encounter
[2024-01-10 06:45] LABS: Hematocrit (blood only) 34.3 % (42.0-52.0); Hemoglobin 11.4 g/dl (14.0-18.0); Mean Corpuscular Hemoglobin 29.5 pg (25.0-34.0); Mean Corpuscular Hgb Conc 33.2 g/dL (32.0-36.0); Mean Corpuscular Volume 88.9 fL (80.0-100.0); Mean Platelet Volume 9.8 fL (9.4-12.4); Platelet Count 326 K/uL (130-400); RDW Coefficient of Variation 12.9 % (11.5-14.5); RDW Standard Deviation 42.1 fL (36.4-46.3); Red Blood Count 3.86 M/uL (4.70-6.10); White Blood Count 11.02 K/ul (4.8-10.8)
[2024-01-10 07:16] LABS: BUN Creatinine Ratio 35.1 (10-20); Calcium 8.3 mg/dl (8.6-10.3); Creatinine Clr Calc Pharmacy 52.8 ml/min; Est GFR (African American) 70.3 ml/min; Est GFR (Non-African American) 60.7 ml/min; Phosphorus 3.9 mg/dl (2.5-4.9); Potassium 4.1 mmol/L (3.5-5.1)
[2024-01-10] MEDS: CLOPIDOGREL BISULFATE 75 MG TAB PO SCH (08:43)
--- NOTE | 2024-01-10 11:16 | Cardiology Progress Note ---
Date of Service January 10, 2024 Assessment & Plan (1) CAD (coronary artery disease): Plan: -- post HECTOR x 2 to RCA -- residual mid LAD, proximal and distal LCx disease 2. Mild aortic stenosis 3. ILD 4. Hypertension 5. Dyslipidemia Chest pain free. Hemodynamically and electrically stable. No access site complications. From a cardiac standpoint OK with discharge today. -- Home on DAPT with ASA and Clopidogrel -- Continue home lisinopril, imdur -- continue home Zetia (statin intolerant). Has scheduled follow-up with his primary revenue enforcement agent Dr. Ramos on Thursday 01/11. If refractory anginal symptoms in future PCI of LAD, proximal LCx could be considered. Admission and Anticipated Discharge Date Admission Date: January 08, 2024 Subjective Feeling well this morning. No chest pain, dyspnea with walking around halls. Telemetry reviewed -- no events. Review of Systems Review of Systems: All systems reviewed & are unremarkable except as noted in HPI & below Physical Exam Physical Exam: General: Comfortable HEENT: Sclerae anicteric Lungs: Clear to auscultation bilaterally with fine crackles at bases Cardiac: Regular rate and rhythm, 2/6 systolic murmur at LLSB Vascular: 2+ RT radial, no hematoma/ecchymosis. Abdomen: Soft, nontender Extremities: Well perfused, no peripheral edema Neuro: Nonfocal Psych: Alert orient x3, normal affect and mood Results & Data Vital Signs (Past 12 Hours) Vital Signs Temp Pulse Pulse Resp BP Pulse Ox O2 Del Method 01/10/24 08:00 98.4 F 74 22 139/60 97 Room Air 01/10/24 07:29 48 L 01/10/24 03:02 98.8 F 88 18 144/68 H 94 Room Air PG Care Time/CCT Total # of Minutes Spent Total Time Spent with Patient: Total time spent is greater than 50% in coordination of care (as documented) at patient's floor/unit and/or counseling patient: Coding Level of Care Code 98983 SUB INP/OBS CARE 2/35MIN Diagnoses CAD (coronary artery disease) I25.10
--- NOTE | 2024-01-10 12:00 | Discharge Summary ---
Date of Service January 10, 2024 Admission HPI Per Admitting Provider This is an 83yo M with a PMH of CAD, h/o NSTEMI in 2010 that was medically managed, dyslipidemia, HTN, ILD, ACE, BPH, chronic pain syndrome and other medical problems listed below who presents with CP starting earlier today. Has been having worsening CP with exertion over the past few months that resolves with rest. Has discussed cardiac cath in outpatient setting with [facility] cards in the past but has declined previously. Was working outside on his property the past few days with [employer] and working on adding electrical to his new barn. When moving around, developed more severe substernal chest pain with radiation up neck extending up to his ears with associated diaphoresis and SOB. Was more severe than previous episodes over the past two months and required rest, 2 ntg and aspirin for pain to fully resolve. Came to ED for further evaluation. Chest pain has not recurred since arrival. No F/C, headache, SOB, N/V, abd pain, dysuria, diarrhea. Uses chronic narcotics for back pain and does home enemas to keep bowels movement, which he did this morning prior to arrival. Is requesting cardiac catheterization at this time. Admission Exam Per Admitting Provider General Appearance: WD/WN, vitals as above, NAD, sitting up in bed, pleasant, conversing easily, flushed appearance Head: normocephalic, atraumatic Eyes: normal inspection, PERRL, conjunctivae normal, anicteric sclerae ENT: external ear and nose normal, oropharynx normal Neck: normal visual inspection, trachea midline, no thyromegaly Respiratory: normal respiratory effort, lungs clear to auscultation, no wheeze, rales, rhonchi. No accessory muscle use Cardiovascular: regular rate, rhythm, +systolic murmur, normal peripheral pulses, no BLE edema. Vessels: no JVD Chest: normal inspection of chest Abdomen/GI: normal bowel sounds, soft, nontender, no hepatosplenomegaly Extremities/Musculoskeletal: no cyanosis or clubbing, extremities motor strength 5/5 Neurologic: PERRL, EOMI, accommodation nl, no face palsy, no dysarthria, CN's II-XI intact bilaterally and moves all extremities Psychiatric: A+Ox3, euthymic affect Skin: no rashes, normal color, warm/dry Principal Diagnosis CAD, angina s/p HECTOR to RCA Discharge Exam General Appearance: WD/WN elderly M in NAD Head: normocephalic, atraumatic Eyes: normal inspection, PERRL, conjunctivae normal, anicteric sclerae ENT: external ear and nose normal Neck: normal visual inspection Respiratory: normal respiratory effort, lungs clear to auscultation, no wheeze, rales, rhonchi. No accessory muscle use Cardiovascular: regular rate, rhythm, +systolic murmur, normal peripheral pulses, no BLE edema. Chest: normal inspection of chest Abdomen/GI: normal bowel sounds, soft, nontender Extremities/Musculoskeletal: no LE edema, moves extremities Neurologic: PERRL, EOMI, no face palsy, no dysarthria, answers appropriately, moves all extremities Psychiatric: A+Ox3, euthymic affect Skin: warm/dry Discharge Data Allergies Allergy/AdvReac Type Severity Reaction Status Date / Time iodine Allergy Intermediate ITCHY. Verified 01/08/24 16:17 SAME REACTION GLUTEN Penicillins Allergy Intermediate RASH Verified 01/08/24 16:17 gluten Allergy Mild rash Verified 01/08/24 16:17 tramadol Allergy Unknown unknown Verified 01/08/24 16:17 codeine AdvReac Mild itching Verified 01/08/24 16:17 Consultations 01/08/24 14:51 ED Decision to Admit Stat 01/08/24 16:00 Consult Cardiology Routine Procedures Performed Operation Date: 01/09/24 10:00 Actual Procedures p Cath, Left with Cors and Vent - Marino Amador MD p Drug Eluting Stent SGl Vessel - Marino Amadro MD s Drug Eluting Stent each ADDTL Vessel - Marino Amador MD s Cineradiography w/Routine Exam - Marino Amador MD Ordered Studies 01/09/24 09:31 CL Cath Imgs for PACS use only Urgent Hospital Course (1) Chest pain: (2) CAD (coronary artery disease): (3) Interstitial lung disease: (4) Hypertension: (5) Dyslipidemia: Plan This is an 83yo M with a PMH of CAD, dyslipidemia, HTN, DM II, ILD, ACE, BPH, chronic pain syndrome and other medical problems listed below who presents with CP Exertional chest pain CAD, angina H/o CAD with progressively more severe exertional CP over the past few months Required 2 ntg earlier today to bring to resolution, currently chest pain free Follows with [facility] cards and per recent note had declined pursuit of cardiac cath, is now requesting EKG with sinus rhythm and PACs, no acute ST changes Initial HS trop 20.[address] Kirby, who requests patient be kept NPO at midnight except meds, their service will see Previous echo from 08/07 with normal LV size and wall motion. EF >70%. Moderate LVH. No significant AI or Continue aspirin, isosorbide, lisinopril, Zetia Has not tolerated metoprolol succinate due to hypotension and fatigue. Has not tolerated statin therapy Trend troponin, fasting lipids and repeat a1c in AM Pt is now s/p Successful PCI of RCA with 2 nonoverlapping drug-eluting stents. Proximal 3.0 x 18 mm Haider; postdilated with 3.5 NC -Distal 2.5 x 15 mm Haider; postdilated with 3.0 NC -- residual mid LAD, proximal and distal LCx disease Pt is feeling well and is chest pain free. Plavix is the new medication for the pt and discussed this with him in detail. He is to continue ASA + Plavix, home lisinopril, Imdur, Zetia (statin intolerant) Follow up with cardiology - Dr. Ramos on Thursday 01/11. ILD At baseline, saturating at 96% on room air. Follows with Pulm CXR with a new lobular right midlung zone density. Follow-up chest CT recommended to exclude the possibility of a pulmonary lesion - will need f/u imaging DM II Last a1c 7.0 in Jul 2023, repeat in AM Hold home agents SSI while in-patient BSG AC HS or Q6H while NPO Chronic pain syndrome H/o radiculopathy, follows with [facility], pain mgmt Continue home hydrocodone-acetaminophen, gabapentin, PRN tizanidine Does not feel duloxetine has been helping with pain and self-discontinued Total Time Total Time Spent Total Time Spent (In Minutes): 40 Discharge Plan Discharge Items Patient Disposition: Home - Self-Care Reason For Visit: CHEST PAIN Discharge Diagnosis: CAD, angina s/p HECTOR to RCA Activity: Per Instructions section Non-emergency contact: Primary Care Provider and Physical Science Professor Call non-emergency contact if: you have any medication questions and your symptoms worsen Follow-up/Referrals: Manav De La Vega DO [Primary Care Provider] - Diet: Carb Consistent or DM2 and Heart Healthy Addtl Attending Provider Instructions: Follow up with your primary care physician and development team lead. The appointment with your development team lead was scheduled for 01/12/2024. You were started on a new medication - plavix (clopidogrel). Make sure that you take both - aspirin 81 mg and plavix 75 mg every day for at least 1 year. Continue your other medications as prescribed. Pending Studies at Discharge: No Stand-Alone Forms: My [facility], Smoking Cessation Medications and DC Order Prescriptions: New clopidogrel 75 mg Tablet 75 mg PO QAM Qty: 30 0RF Continued hydrocodone-acetaminophen 10-325 mg tablet 1 tab PO Q6H PRN (Reason: Severe Pain (Scale Score 7-10)) lisinopril 5 mg tablet 5 mg PO DAILY Qty: 90 3RF ezetimibe [Zetia] 10 mg tablet 10 mg PO DAILY Qty: 90 3RF gabapentin 600 mg tablet See Rx Instructions .ROUTE .COMPLEX Rx Instructions: 600 mg in AM, 900mg at noon, 600mg in PM pantoprazole 40 mg tablet,delayed release (DR/EC) 40 mg PO DAILY dapsone 25 mg tablet 50 mg PO DAILY PRN (Reason: Itching) acetaminophen [Tylenol] 325 mg capsule 325 - 650 mg PO QID PRN (Reason: Pain) finasteride 5 mg tablet 5 mg PO DAILY nitroglycerin 0.4 mg tablet, sublingual 0.4 mg SL Q5M PRN (Reason: chest pain) Qty: 25 5RF isosorbide mononitrate 30 mg tablet extended release 24 hr 30 mg PO DAILY Qty: 30 5RF cyanocobalamin (vitamin B-12) [Vitamin B-12] 100 mcg Tablet 100 mcg PO DAILY aspirin 81 mg Tablet,Delayed Release (Dr/Ec) 81 mg PO DAILY diclofenac sodium 1 % Gel 4 g TOPICAL BID PRN (Reason: Pain) tizanidine 2 mg Tablet 2 mg PO BID PRN (Reason: MUSCLE SPASMS) red yeast rice 600 mg Tablet 600 mg PO BID metformin 500 mg tablet extended release 24 hr 500 mg PO BID Rx Instructions: Take with meals sennosides 8.6 mg Tablet 8.6 mg PO HS albuterol sulfate 2.5 mg /3 mL (0.083 %) Solution For Nebulization 2.5 mg INHALATION DIRECTED PRN (Reason: Shortness Of Breath Or Wheezing) sildenafil 50 mg Tablet 25 - 50 mg PO DIRECTED PRN (Reason: .erectile difunction) Rx Instructions: administer 30 minutes to 4 hours before activity aspirin 325 mg Tablet 325 mg PO .TODAY ondansetron HCl 4 mg tablet 4 mg PO Q6 PRN (Reason: naysea) albuterol sulfate 90 mcg/actuation HFA aerosol inhaler 2 puff INHALATION QID PRN (Reason: Shortness Of Breath Or Wheezing) Discharge Orders: Discharge Order (Routine); Ordered 01/10/24 Ordered By: David Bronson/Other Patient Handouts: Managing Type 2 Diabetes Admission Data Admit Date/Time: 01/08/24 15:09 Attending Provider: David Avery Admit Provider: Kiarra Gresham Primary Care Provider: Manav De La Vega Other Providers: Angel Kirby; Kiarra Gresham Other Interventions: Discharge Summary Assessment (RN) Last Done: 01/10/24 11:51
== END 2024-01-10 12:24 | disposition home or self-care (01) ==
LOC: EDINP 13:19 → ED 13:19 → SUATTDRO 15:09 → 2S 17:12

== ENCOUNTER 2025-07-19 12:19 | Inpatient (IN) ==
[2025-07-19 13:11] LABS: Hematocrit (blood only) 35.7 % (42.0-52.0); Hemoglobin 12.0 g/dl (14.0-18.0); Immature Granulocytes # (auto) 0.06 K/uL (0.01-0.20); Immature Granulocytes % (auto) 0.4 %; Mean Corpuscular Hemoglobin 29.9 pg (25.0-34.0); Mean Corpuscular Volume 89.0 fL (80.0-100.0); Platelet Count 341 K/uL (130-400); RDW Standard Deviation 39.6 fL (36.4-46.3); Red Blood Count 4.01 M/uL (4.70-6.10); White Blood Count 13.64 K/ul (4.8-10.8)
[2025-07-19] MEDS: SODIUM CHLORIDE 0.9% 500 ML IV ONE (13:20)
--- NOTE | 2025-07-19 13:30 | XRay Report ---
XR chest 1V portable CLINICAL HISTORY: Chest pain, nonspecific COMPARISON STUDY: 01/08/2024 and 08/12/2023 FINDINGS: There is mild cardiomegaly without pulmonary vascular congestion. There is a nodular densit y at the right midlung measuring approximately 2 cm. There is reticular and faint patchy opacity at t he left lung base. No lobar consolidation or pleural effusion. No pneumothorax. IMPRESSION: 1. Possible early pneumonia left lung base. 2. Right mid lung nodular density. Suggest follow-up CT scan of the chest. ACT 112: Negative or not required by law. Electronically signed by: Paco Yusuf M.D. 07/19/2025 1:29 PM
[2025-07-19 13:31] LABS: Alanine Aminotransferase 12.0 U/L (7-52); Albumin Globulin Ratio 1.3 (0.9-2); Albumin Level 4.3 gm/dl (3.4-5.0); Alkaline Phosphatase 93.0 U/L (34-104); Anion Gap 9.0 (3-11); Bilirubin,Total 0.3 mg/dl (0.2-1.0); Blood Urea Nitrogen 35.0 mg/dl (6-23); Calcium 9.2 mg/dl (8.6-10.3); Carbon Dioxide 25.0 mmol/L (21-32); Chloride 101.0 mmol/L (98-107); Creatinine Clr Calc Pharmacy 48.7 ml/min; Globulin 3.2 gm/dl (2.5-4.0); Glucose 144.0 mg/dl (70-99(Fasting)); Lipase 9.0 U/L (11-82); Magnesium 2.1 mg/dl (1.7-2.4); Potassium 4.7 mmol/L (3.5-5.1); Sodium 135.0 mmol/L (136-145); Total Protein 7.5 gm/dl (6.0-8.3)
[2025-07-19 13:37] LABS: Appearance Urine Clear (Clear); Glucose Urine UA Negative (Negative)
[2025-07-19 13:53] LABS: INR 1.0 (0.9-1.1); Prothrombin Time 10.3 Seconds (9.0-12.0)
--- NOTE | 2025-07-19 15:38 | Emergency Department Note ---
Impression & Plan Exertional chest pain ED Provider Note NAME: TERRANCE SOTO AGE: 84 SEX: M : 1940 ARRIVES VIA: Walk-In INFORMANT: Patient ED PROVIDER(S): Otis Fulton MD CHIEF COMPLAINT: PLAN: Disposition: MEDICAL DECISION MAKING: The patient is a pleasant 84-year-old gentleman with a past medical history of CAD with history of RCA PCI in 2023 with residual 80-90% calcified mid a LAD with collaterals to apical vessel who presents emergency department via walk-in accompanied by his daughter for evaluation of chest pain and shortness of breath with exertion that will resolve with rest and his home nitroglycerin. Patient reports that this is happened here and there but today he was concerned due to persistence of symptoms. He reports he has only rarely taken nitroglycerin but the fact that he needed it twice a day was abnormal. Patient reports he was exerting himself to get into his truck to go vote and felt heaviness on his chest. He denies any fevers, chills, cough, congestion, GI or symptoms. He denies any chest pain at this time. On my evaluation the patient no acute distress, afebrile with vital signs stable. He appears euvolemic to dry. Cardiac catheterization, January 09, 2024: Severe multivessel coronary artery disease -70% proximal to mid RCA, 95% distal RCA 80% proximal circumflex, 70% distal circumflex 80-90% calcified mid LAD. Subtotal distal LAD occlusion with collaterals to apical vessel. 2. Normal intracardiac filling pressure 3. Successful PCI of RCA with 2 nonoverlapping drug-eluting stents. Proximal 3.0 x 18 mm Haider; postdilated with 3.5 NC -Distal 2.5 x 15 mm Haider; postdilated with 3.0 NC Triage Nursing notes reviewed and agree them. Prior/external medical records reviewed Vital Signs: reviewed Differential diagnosis: ER treatment provided: See below. Diagnostics interpreted by me: ECG: None Cardiac Monitoring: An order for continuous cardiac monitoring was placed and demonstrated Laboratory studies: See below Imaging studies: See below Consultation(s): None HPI: Per MDM. ROS: See above HPI for pertinent positives & negatives. A total of 10 systems reviewed and were otherwise negative. VITALS:See Below PHYSICAL EXAMINATION: ED COURSE: Times/Reassessments: Procedures: None PDMP: Reviewed and no issues Critical Care: None Otis Fulton MD Past Med/Surg History Problem List (Updated 07/19/25 @ 16:01 by Otis Fulton MD) Exertional chest pain (Acute) S/P coronary artery stent placement Aortic stenosis Unstable angina Chest pain (Acute) Elevated troponin (Acute) Multifocal pneumonia (Acute) Sepsis Interstitial lung disease (Acute) Parainfluenza Acute hypoxic respiratory failure (Acute) S/P insertion of spinal cord stimulator Dr. Arredondo - 2017 H/O lumbar discectomy L2-3, L3-4 w/ artificial discs by Dr. Huerta 11/2015 Sacroiliitis SOB (shortness of breath) Partial obstruction of small intestine (Acute) DVT prophylaxis Hyperglycemia Thrombocytosis Leukocytosis Barretts esophagus SBO (small bowel obstruction) Chronic back pain Cervical radiculopathy Spinal stenosis (Acute) Aortic valve sclerosis Hypertension Dyslipidemia CAD (coronary artery disease) NSTEMI on 06/20/11 (peak troponin of 2.7) Cardiac catheterization 06/21/11: Multivessel disease. mid LAD stenosis 40% followed by a long 70% stenosis at the bifurcation of the third diagonal vessel. The third diagonal vessel also had an ostial 70% lesion. The distal LAD towards the apex was completely occluded but filled from left to left and [id number] collaterals. A large septal branch also had a 60% proximal stenosis. The distal circumflex had a 90% long stenosis; proximally there was a 30% stenosis. The RCA had a proximal 50-60% stenosis. This was the dominant vessel. Medical management was instituted. Medical History (Updated 07/19/25 @ 16:01 by Otis Fulton MD) Spinal cord stimulator status Esophageal reflux Surgical History (Updated 02/10/24 @ 00:07 by Chong Mcdaniel) H/O exploratory laparotomy , lysis of adhesions for SBO H/O hernia repair History of hemilaminectomy S/P shoulder surgery S/P knee surgery S/P cholecystectomy S/P appendectomy Family History Mother Coronary heart disease Social History Smoking Status: Never smoker Second Hand Exposure: No; Do You Dip or Chew Tobacco: No; Hx Alcohol Use: No Hx Substance Use: No Preferred Language: Lithuanian Communication Ability: Effective Visual Impairment: No Limitations Hearing Ability: Hard of Hearing [employer] Required: No Beliefs That Will Affect Care: None marital status: / Current Living Situation: Alone Current Living Situation Comment: Home alone, independent ( passed 2021). current occupational status: retired Feels Safe at Home: Yes Assistive Devices: None Allergies Allergies Allergy/AdvReac Type Severity Reaction Status Date / Time gluten Allergy Intermediate BREAK OUT Verified 07/19/25 15:51 IN BLISTERS iodine Allergy Intermediate ITCHY. Verified 07/19/25 15:51 SAME REACTION GLUTEN Penicillins Allergy Intermediate RASH Verified 07/19/25 15:51 meloxicam AdvReac Severe RENAL Verified 07/19/25 15:51 COMPLICATIONS atorvastatin [From Lipitor] AdvReac Intermediate Muscle Pain Verified 07/19/25 15:51 tramadol AdvReac Intermediate BAD Verified 07/19/25 15:51 STOMACH PROBLEMS codeine AdvReac Mild itching Verified 07/19/25 15:51 Home Meds Home Medications Medication Instructions Recorded Confirmed gabapentin 600 mg tablet See Rx Instructions .Route .COMPLEX 08/06/19 07/19/25 pantoprazole 40 mg tablet,delayed 40 mg PO DAILY 08/06/19 07/19/25 release finasteride 5 mg tablet 5 mg PO DAILY 09/04/20 07/19/25 hydrocodone 10 mg-acetaminophen 1 tab PO Q6H PRN Severe Pain 12/08/20 07/19/25 325 mg tablet (Scale Score 7-10) aspirin 81 mg tablet,delayed 81 mg PO DAILY 07/27/21 07/19/25 release cyanocobalamin (vitamin B-12) 100 100 mcg PO DAILY 07/27/21 07/19/25 mcg tablet (Vitamin B-12) red yeast rice 600 mg tablet 600 mg PO BID 07/27/21 07/19/25 metformin 500 mg tablet,extended 500 mg PO BID 08/12/23 07/19/25 release 24 hr ondansetron HCl 4 mg tablet 4 mg PO Q6 PRN naysea 01/08/24 07/19/25 lisinopril 5 mg tablet 5 mg PO QAM 07/19/25 07/19/25 multivitamin 1 tab PO DAILY 07/19/25 07/19/25 Previous Rx's Medication Instructions Recorded ezetimibe 10 mg tablet (Zetia) 10 mg PO DAILY #90 tabs 08/22/21 nitroglycerin 0.4 mg sublingual 0.4 mg sublingual Q5M PRN chest 10/22/23 tablet pain #25 tabs clopidogrel 75 mg tablet 75 mg PO QAM #90 tabs 07/21/24 Results & Data (ED) Vital Signs Vital Signs - 24 hr 07/19/25 12:19 07/19/25 12:19 07/19/25 12:21 Temperature 36.1 C L Temperature Source Temporal Artery Scan Pulse Rate 60 Pulse Rate [Right] 58 L Pulse Rate from SpO2 Sensor Pulse Rhythm Respiratory Rate 18 21 Respiratory Effort / Characteristics Non-Labored Spontaneous Labored Respiratory Depth Normal Normal Respiratory Pattern Regular Regular Blood Pressure 125/63 Blood Pressure [Right Arm] 139/69 Blood Pressure Mean 83 Blood Pressure Mean [Right Arm] 92 Blood Pressure Position [Right Arm] Pulse Oximetry 98 93 94 Oxygen Delivery Method Room Air Room Air Room Air Sepsis Recent Fever Within 48 Hours No Sepsis New/Unexplained Change in Mental Status N/A Sepsis Action Taken by Nursing No Action Required 07/19/25 12:44 07/19/25 12:47 07/19/25 13:11 Temperature Temperature Source Pulse Rate 57 L Pulse Rate [Right] 57 L Pulse Rate from SpO2 Sensor Pulse Rhythm Regular Respiratory Rate 19 18 Respiratory Effort / Characteristics Respiratory Depth Respiratory Pattern Blood Pressure Blood Pressure [Right Arm] 139/69 Blood Pressure Mean Blood Pressure Mean [Right Arm] 92 Blood Pressure Position [Right Arm] Pulse Oximetry 94 94 Oxygen Delivery Method Room Air Room Air Sepsis Recent Fever Within 48 Hours Sepsis New/Unexplained Change in Mental Status Sepsis Action Taken by Nursing 07/19/25 15:21 07/19/25 15:47 Temperature Temperature Source Pulse Rate 66 Pulse Rate [Right] 61 Pulse Rate from SpO2 Sensor 51 L Pulse Rhythm Respiratory Rate 19 20 Respiratory Effort / Characteristics Non-Labored Spontaneous Respiratory Depth Normal Respiratory Pattern Regular Blood Pressure Blood Pressure [Right Arm] 120/69 Blood Pressure Mean Blood Pressure Mean [Right Arm] 86 Blood Pressure Position [Right Arm] Semi-fowlers Pulse Oximetry 97 95 Oxygen Delivery Method Room Air Room Air Sepsis Recent Fever Within 48 Hours Sepsis New/Unexplained Change in Mental Status Sepsis Action Taken by Nursing Laboratory Data 07/19/25 12:35 07/19/25 12:35 Lab Results 07/19/25 07/19/25 07/19/25 Range/Units 12:35 14:50 Unknown WBC 13.64 H (4.8-10.8) K/ul RBC 4.01 L (4.70-6.10) M/uL Hgb 12.0 L (14.0-18.0) g/dl Hct 35.7 L (42.0-52.0) % MCV 89.0 (80.0-100.0) fL MCH 29.9 (25.0-34.0) pg MCHC 33.6 (32.0-36.0) g/dL RDW Std Deviation 39.6 (36.4-46.3) fL RDW Coeff of Geraldo 12.1 (11.5-14.5) % Plt Count 341 (130-400) K/uL MPV 9.5 (9.4-12.4) fL Immature Gran % (Auto) 0.4 % Neut % (Auto) 81.0 % Lymph % (Auto) 10.8 % Motley % (Auto) 7.6 % Eos % (Auto) 0.1 % Baso % (Auto) 0.1 % Neut # (Auto) 11.05 H (1.40-6.50) K/uL Lymph # (Auto) 1.47 (1.20-3.40) K/uL Motley # (Auto) 1.03 H (0.11-0.59) K/uL Eos # (Auto) 0.01 (0.00-0.50) K/uL Baso # (Auto) 0.02 (0.00-0.20) K/uL Immature Gran # (Auto) 0.06 (0.01-0.20) K/uL PT 10.3 (9.0-12.0) Seconds INR 1.0 (0.9-1.1) Sodium 135 L (136-145) mmol/L Potassium 4.7 (3.5-5.1) mmol/L Chloride 101 (98-107) mmol/L Carbon Dioxide 25 (21-32) mmol/L Anion Gap 9 (3-11) BUN 35 H (6-23) mg/dl Creatinine 1.11 (0.6-1.4) mg/dl Est Cr Clr Drug Dosing 48.7 ml/min eGFR 65.07 BUN/Creatinine Ratio 31.5 H (10-20) Glucose 144 H (70-99(Fasting)) mg/dl Calcium 9.2 (8.6-10.3) mg/dl Phosphorus 3.5 (2.5-4.9) mg/dl Magnesium 2.1 (1.7-2.4) mg/dl Total Bilirubin 0.3 (0.2-1.0) mg/dl Direct Bilirubin 0.1 (0-0.2) mg/dl AST 15 (13-39) U/L ALT 12 (7-52) U/L Alkaline Phosphatase 93 (34-104) U/L Troponin I High Sens 28.6 H 44.7 H D (0-20) pg/ml Total Protein 7.5 (6.0-8.3) gm/dl Albumin 4.3 (3.4-5.0) gm/dl Globulin 3.2 (2.5-4.0) gm/dl Albumin/Globulin Ratio 1.3 (0.9-2) Lipase 9 L (11-82) U/L Urine Color Yellow Urine Appearance Clear (Clear) Urine pH 5.0 (4.5-7.5) Ur Specific [place] 1.021 (1.000-1.030) Urine Protein Negative (Negative) Urine Glucose (UA) Negative (Negative) Urine Ketones Negative (Negative) Urine Blood Negative (Negative) Urine Nitrite Negative (Negative) Urine Bilirubin Negative (Negative) Urine Urobilinogen Negative (Negative) Ur Leukocyte Esterase Negative (Negative) Urine Comment Administered Medications Discontinued Medications Aspirin (Aspirin Chew 324 Mg) 324 mg PO NOW STA Stop: 07/19/25 15:39 Last Admin: 07/19/25 15:52 Dose: 324 mg Documented By: ISAMAR Sodium Chloride (Nss) 500 mls @ 999 mls/hr IV .Q31M ONE Stop: 07/19/25 13:17 Last Infusion: 07/19/25 15:47 Dose: Infused Documented By: Admin: 07/19/25 13:20 Dose: 999 mls/hr Documented By: RYLEE Imaging Data Radiologist's Impression: Chest X-Ray 07/19/25 12:44 XR chest 1V portable CLINICAL HISTORY: Chest pain, nonspecific COMPARISON STUDY: 01/08/2024 and 08/12/2023 FINDINGS: There is mild cardiomegaly without pulmonary vascular congestion. There is a nodular density at the right midlung measuring approximately 2 cm. There is reticular and faint patchy opacity at the left lung base. No lobar consolidation or pleural effusion. No pneumothorax. IMPRESSION: 1. Possible early pneumonia left lung base. 2. Right mid lung nodular density. Suggest follow-up CT scan of the chest. ACT 112: Negative or not required by law. Electronically signed by: Paco Yusuf M.D. 07/19/2025 1:29 PM Discharge Plan Visit Data Chief Complaint: Chest Pain Stated Complaint: CHEST PAIN ED Provider: Otis Fulton Discharge Problem: Exertional chest pain Patient Disposition: Admitted As Inpatient Condition: Fair Forms Stand Alone Forms: My [facility] [place] ProtAb Prescriptions Prescriptions: No Action hydrocodone-acetaminophen 10-325 mg tablet 1 tab PO Q6H PRN (Reason: Severe Pain (Scale Score 7-10)) ezetimibe [Zetia] 10 mg tablet 10 mg PO DAILY Qty: 90 3RF gabapentin 600 mg tablet See Rx Instructions .ROUTE .COMPLEX Rx Instructions: 600 mg in AM, 900mg q afternoon, 600mg in PM pantoprazole 40 mg tablet,delayed release (DR/EC) 40 mg PO DAILY finasteride 5 mg tablet 5 mg PO DAILY nitroglycerin 0.4 mg tablet, sublingual 0.4 mg SL Q5M PRN (Reason: chest pain) Qty: 25 5RF clopidogrel 75 mg tablet 75 mg PO QAM Qty: 90 3RF cyanocobalamin (vitamin B-12) [Vitamin B-12] 100 mcg Tablet 100 mcg PO DAILY aspirin 81 mg Tablet,Delayed Release (Dr/Ec) 81 mg PO DAILY red yeast rice 600 mg Tablet 600 mg PO BID metformin 500 mg tablet extended release 24 hr 500 mg PO BID Rx Instructions: Take with meals ondansetron HCl 4 mg tablet 4 mg PO Q6 PRN (Reason: naysea) multivitamin Tablet 1 tab PO DAILY lisinopril 5 mg tablet 5 mg PO QAM Referrals Referrals: Manav De La Vega DO [Primary Care Provider] -
[2025-07-19] MEDS: ASPIRIN CHEW 324 MG PO STA (15:52)
--- NOTE | 2025-07-19 17:24 | Emergency Department Note ---
Impression & Plan Exertional chest pain, S/P coronary artery stent placement, CAD (coronary artery disease) ED Provider Note NAME: TERRANCE SOTO AGE: 84 SEX: M : 1940 ARRIVES VIA: Walk-In INFORMANT: Patient ED PROVIDER(S): Otis Fulton MD CHIEF COMPLAINT: Exertional chest pain PLAN: Disposition: Admit MEDICAL DECISION MAKING: The patient is a pleasant 84-year-old gentleman with a past medical history of CAD with history of RCA PCI in 2023 with residual 80-90% calcified mid a LAD with collaterals to apical vessel who presents emergency department via walk-in accompanied by his daughter for evaluation of chest pain and shortness of breath with exertion that will resolve with rest and his home nitroglycerin. Patient reports that this is happened here and there but today he was concerned due to persistence of symptoms. He reports he has only rarely taken nitroglycerin but the fact that he needed it twice a day was abnormal. Patient reports he was exerting himself to get into his truck to go vote and felt heaviness on his chest. He denies any fevers, chills, cough, congestion, GI or symptoms. He denies any chest pain at this time. On my evaluation the patient no acute distress, afebrile with vital signs stable. He appears euvolemic to dry. EKG without overt acute ischemia. CXR negative for acute cardiopulmonary process per my personal preliminary review/interpretation. WBC 13.6 K with neutrophilia but no left shift, nonspecific. H/H similar to prior values. Platelets within normal limits. Chemistry without metabolic acidosis. BUNs/creatinine 31 consistent with patient's clinically dry appearance. LFTs unremarkable. Initial high-sensitivity troponin 28.6 and repeat 44.7 similar to prior range of values and nonspecific. Given patient's report of new and worsening pattern of exertional chest pain that improved with nitroglycerin he does agree with plan for admission for further management. Full dose aspirin administered out of caution. Case was discussed with Mario Alejandro, with Dr. Chloé Martin hospitalist who will evaluate the patient for admission. Further management per admitting team. Cardiac catheterization, January 09, 2024: Severe multivessel coronary artery disease -70% proximal to mid RCA, 95% distal RCA 80% proximal circumflex, 70% distal circumflex 80-90% calcified mid LAD. Subtotal distal LAD occlusion with collaterals to apical vessel. 2. Normal intracardiac filling pressure 3. Successful PCI of RCA with 2 nonoverlapping drug-eluting stents. Proximal 3.0 x 18 mm Haider; postdilated with 3.5 NC -Distal 2.5 x 15 mm Haider; postdilated with 3.0 NC Triage Nursing notes reviewed and agree them. Prior/external medical records reviewed Vital Signs: reviewed Differential diagnosis: Cardiac ischemia, aortic dissection, pulmonary embolism, pneumothorax, pneumonia, pericarditis, myocarditis, esophageal rupture, GERD, cholecystitis, pancreatitis, musculoskeletal, as well as other pathologies. ER treatment provided: See below. Diagnostics interpreted by me: ECG: Sinus rhythm, 75 bpm, occasional pvcs, no overt ST elevation or depression. Cardiac Monitoring: An order for continuous cardiac monitoring was placed and demonstrated Sinus rhythm, 75 bpm, occasional pvcs. Laboratory studies: See below Imaging studies: See below Consultation(s):Araceli Car Case was discussed with Mario Alejandro, with Dr. Chloé Martin hospitalist who will evaluate the patient for admission. HPI: Per MDM. ROS: See above HPI for pertinent positives & negatives. A total of 10 systems reviewed and were otherwise negative. VITALS:See Below PHYSICAL EXAMINATION: GENERAL: Awake, alert, well-appearing, in no distress HENT: Normocephalic, atraumatic. Oropharynx with dry mucous membranes and otherwise unremarkable. EYES: Normal conjunctiva. Sclera non-icteric. NECK: Supple. No nuchal rigidity. FROM. No JVD. RESPIRATORY: Clear to auscultation. CARDIAC: Regular rate, normal rhythm. Extremities warm and well perfused. Pulses equal. ABDOMEN: Soft, non-distended. No tenderness to palpation. No rebound or guarding. No masses. MUSCULOSKELETAL: Chest examination reveals no tenderness. The back is symmetrical on inspection without obvious abnormality. There is no CVA tenderness to palpation. No joint edema. LOWER EXTREMITIES: Calves are equal size bilaterally and non-tender. No edema. No discoloration. NEURO: Normal sensorium. No sensory or motor deficits noted. SKIN: No rash or jaundice noted. Otis Fulton MD and Past Med/Surg History Problem List (Updated 07/21/25 @ 00:24 by Otis Fulton MD) Exertional chest pain (Acute) S/P coronary artery stent placement (Acute) Aortic stenosis Unstable angina Chest pain (Acute) Elevated troponin (Acute) Interstitial lung disease (Acute) Barretts esophagus Chronic back pain Hypertension Dyslipidemia CAD (coronary artery disease) (Acute) NSTEMI on 06/20/11 (peak troponin of 2.7) Cardiac catheterization 06/21/11: Multivessel disease. mid LAD stenosis 40% followed by a long 70% stenosis at the bifurcation of the third diagonal vessel. The third diagonal vessel also had an ostial 70% lesion. The distal LAD towards the apex was completely occluded but filled from left to left and [id number] collaterals. A large septal branch also had a 60% proximal stenosis. The distal circumflex had a 90% long stenosis; proximally there was a 30% stenosis. The RCA had a proximal 50-60% stenosis. This was the dominant vessel. Medical management was instituted. Medical History (Updated 07/21/25 @ 00:24 by Otis Fulton MD) Aortic valve sclerosis Spinal stenosis Cervical radiculopathy SBO (small bowel obstruction) Leukocytosis Thrombocytosis Hyperglycemia DVT prophylaxis Partial obstruction of small intestine SOB (shortness of breath) Sacroiliitis Acute hypoxic respiratory failure Parainfluenza Sepsis Multifocal pneumonia Type 2 diabetes mellitus Spinal cord stimulator status Esophageal reflux Surgical History (Updated 07/21/25 @ 00:24 by Otis Fulton MD) H/O lumbar discectomy L2-3, L3-4 w/ artificial discs by Dr. Huerta 11/2015 S/P insertion of spinal cord stimulator Dr. 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 current occupational status: retired Other Information That Helps Us Care for You: No Feels Safe at Home: Yes Safety Concerns: Feels Safe At This Time Assistive Devices: None Allergies Allergies Allergy/AdvReac Type Severity Reaction Status Date / Time gluten Allergy Intermediate BREAK OUT Verified 07/19/25 15:51 IN BLISTERS iodine Allergy Intermediate ITCHY. Verified 07/19/25 15:51 SAME REACTION GLUTEN Penicillins Allergy Intermediate RASH Verified 07/19/25 15:51 meloxicam AdvReac Severe RENAL Verified 07/19/25 15:51 COMPLICATIONS atorvastatin [From Lipitor] AdvReac Intermediate Muscle Pain Verified 07/19/25 15:51 tramadol AdvReac Intermediate BAD Verified 07/19/25 15:51 STOMACH PROBLEMS codeine AdvReac Mild itching Verified 07/19/25 15:51 Home Meds Home Medications Medication Instructions Recorded Confirmed gabapentin 600 mg tablet See Rx Instructions .Route .COMPLEX 08/06/19 07/19/25 pantoprazole 40 mg tablet,delayed 40 mg PO DAILY 08/06/19 07/19/25 release finasteride 5 mg tablet 5 mg PO DAILY 09/04/20 07/19/25 hydrocodone 10 mg-acetaminophen 1 tab PO Q6H PRN Severe Pain 12/08/20 07/19/25 325 mg tablet (Scale Score 7-10) aspirin 81 mg tablet,delayed 81 mg PO DAILY 07/27/21 07/19/25 release cyanocobalamin (vitamin B-12) 100 100 mcg PO DAILY 07/27/21 07/19/25 mcg tablet (Vitamin B-12) red yeast rice 600 mg tablet 600 mg PO BID 07/27/21 07/19/25 metformin 500 mg tablet,extended 500 mg PO BID 08/12/23 07/19/25 release 24 hr ondansetron HCl 4 mg tablet 4 mg PO Q6 PRN naysea 01/08/24 07/19/25 lisinopril 5 mg tablet 5 mg PO QAM 07/19/25 07/19/25 multivitamin 1 tab PO DAILY 07/19/25 07/19/25 Previous Rx's Medication Instructions Recorded ezetimibe 10 mg tablet (Zetia) 10 mg PO DAILY #90 tabs 08/22/21 nitroglycerin 0.4 mg sublingual 0.4 mg sublingual Q5M PRN chest 10/22/23 tablet pain #25 tabs clopidogrel 75 mg tablet 75 mg PO QAM #90 tabs 07/21/24 Results & Data (ED) Vital Signs Vital Signs - 24 hr 07/19/25 12:19 07/19/25 12:19 07/19/25 12:21 Temperature 36.1 C L Temperature Source Temporal Artery Scan Pulse Rate 60 Pulse Rate [Right] 58 L Pulse Rate from SpO2 Sensor Pulse Rhythm Respiratory Rate 18 21 Respiratory Effort / Characteristics Non-Labored Spontaneous Labored Respiratory Depth Normal Normal Respiratory Pattern Regular Regular Blood Pressure 125/63 Blood Pressure [Right Arm] 139/69 Blood Pressure Mean 83 Blood Pressure Mean [Right Arm] 92 Blood Pressure Position [Right Arm] Pulse Oximetry 98 93 94 Oxygen Delivery Method Room Air Room Air Room Air Sepsis Recent Fever Within 48 Hours No Sepsis New/Unexplained Change in Mental Status N/A Sepsis Action Taken by Nursing No Action Required 07/19/25 12:44 07/19/25 12:47 07/19/25 13:11 Temperature Temperature Source Pulse Rate 57 L Pulse Rate [Right] 57 L Pulse Rate from SpO2 Sensor Pulse Rhythm Regular Respiratory Rate 19 18 Respiratory Effort / Characteristics Respiratory Depth Respiratory Pattern Blood Pressure Blood Pressure [Right Arm] 139/69 Blood Pressure Mean Blood Pressure Mean [Right Arm] 92 Blood Pressure Position [Right Arm] Pulse Oximetry 94 94 Oxygen Delivery Method Room Air Room Air Sepsis Recent Fever Within 48 Hours Sepsis New/Unexplained Change in Mental Status Sepsis Action Taken by Nursing 07/19/25 15:21 07/19/25 15:47 Temperature Temperature Source Pulse Rate 66 Pulse Rate [Right] 61 Pulse Rate from SpO2 Sensor 51 L Pulse Rhythm Respiratory Rate 19 20 Respiratory Effort / Characteristics Non-Labored Spontaneous Respiratory Depth Normal Respiratory Pattern Regular Blood Pressure Blood Pressure [Right Arm] 120/69 Blood Pressure Mean Blood Pressure Mean [Right Arm] 86 Blood Pressure Position [Right Arm] Semi-fowlers Pulse Oximetry 97 95 Oxygen Delivery Method Room Air Room Air Sepsis Recent Fever Within 48 Hours Sepsis New/Unexplained Change in Mental Status Sepsis Action Taken by Nursing Laboratory Data Attestation: I reviewed the patient's lab results. 07/20/25 02:27 07/20/25 02:27 Lab Results 07/19/25 07/19/25 Range/Units 12:35 14:50 WBC 13.64 H (4.8-10.8) K/ul RBC 4.01 L (4.70-6.10) M/uL Hgb 12.0 L (14.0-18.0) g/dl Hct 35.7 L (42.0-52.0) % MCV 89.0 (80.0-100.0) fL MCH 29.9 (25.0-34.0) pg MCHC 33.6 (32.0-36.0) g/dL RDW Std Deviation 39.6 (36.4-46.3) fL RDW Coeff of Geraldo 12.1 (11.5-14.5) % Plt Count 341 (130-400) K/uL MPV 9.5 (9.4-12.4) fL Immature Gran % (Auto) 0.4 % Neut % (Auto) 81.0 % Lymph % (Auto) 10.8 % Conway % (Auto) 7.6 % Eos % (Auto) 0.1 % Baso % (Auto) 0.1 % Neut # (Auto) 11.05 H (1.40-6.50) K/uL Lymph # (Auto) 1.47 (1.20-3.40) K/uL [place] # (Auto) 1.03 H (0.11-0.59) K/uL Eos # (Auto) 0.01 (0.00-0.50) K/uL Baso # (Auto) 0.02 (0.00-0.20) K/uL Immature Gran # (Auto) 0.06 (0.01-0.20) K/uL PT 10.3 (9.0-12.0) Seconds INR 1.0 (0.9-1.1) Sodium 135 L (136-145) mmol/L Potassium 4.7 (3.5-5.1) mmol/L Chloride 101 (98-107) mmol/L Carbon Dioxide 25 (21-32) mmol/L Anion Gap 9 (3-11) BUN 35 H (6-23) mg/dl Creatinine 1.11 (0.6-1.4) mg/dl Est Cr Clr Drug Dosing 48.7 ml/min eGFR 65.07 BUN/Creatinine Ratio 31.5 H (10-20) Glucose 144 H (70-99(Fasting)) mg/dl Calcium 9.2 (8.6-10.3) mg/dl Phosphorus 3.5 (2.5-4.9) mg/dl Magnesium 2.1 (1.7-2.4) mg/dl Total Bilirubin 0.3 (0.2-1.0) mg/dl Direct Bilirubin 0.1 (0-0.2) mg/dl AST 15 (13-39) U/L ALT 12 (7-52) U/L Alkaline Phosphatase 93 (34-104) U/L Troponin I High Sens 28.6 H 44.7 H D (0-20) pg/ml Total Protein 7.5 (6.0-8.3) gm/dl Albumin 4.3 (3.4-5.0) gm/dl Globulin 3.2 (2.5-4.0) gm/dl Albumin/Globulin Ratio 1.3 (0.9-2) Lipase 9 L (11-82) U/L Administered Medications Hydrocodone Bitart/Acetaminophen (Hydrocodone/Acetaminophen 10/325 Tab) 1 tab PO Q6H PRN PRN Reason: Severe Pain (Scale Score 7-10) Stop: 08/03/25 09:25 Last Admin: 07/20/25 20:30 Dose: 1 tab Documented By: Admin: 07/20/25 13:51 Dose: 1 tab Documented By: MIGUEL Aspirin (Aspirin 81 Mg Ectab) 81 mg PO DAILY [facility] Stop: 08/19/25 08:59 Last Admin: 07/20/25 08:14 Dose: 81 mg Documented By: NILDA Clopidogrel Bisulfate (Clopidogrel Bisulfate 75 Mg Tab) [facility] Stop: 08/19/25 08:59 Last Admin: 07/20/25 08:14 Dose: 75 mg Documented By: NILDA Cyanocobalamin (Cyanocobalamin (B-12) 100 Mcg Tablet) 100 mcg PO DAILY [facility] Stop: 08/19/25 08:59 Last Admin: 07/20/25 08:17 Dose: 100 mcg Documented By: NILDA Ezetimibe (Ezetimibe 10 Mg Tab) 10 mg PO DAILY [facility] Stop: 08/19/25 08:59 Last Admin: 07/20/25 08:14 Dose: 10 mg Documented By: NILDA Finasteride (Finasteride 5 Mg Tab) 5 mg PO DAILY [facility] Stop: 08/19/25 08:59 Last Admin: 07/20/25 08:15 Dose: 5 mg Documented By: NILDA Gabapentin (Gabapentin 600 Mg Tab) 600 mg PO BID@0800,2100 LEVAR Stop: 08/18/25 20:59 Last Admin: 07/20/25 20:30 Dose: 600 mg Documented By: Admin: 07/20/25 08:16 Dose: 600 mg Documented By: Admin: 07/19/25 20:30 Dose: 600 mg Documented By: GABRIELA Gabapentin (Gabapentin 300 Mg Cap) 900 mg PO DAILY@1400 LEVAR Stop: 08/19/25 13:59 Last Admin: 07/20/25 13:51 Dose: 900 mg Documented By: MIGUEL Heparin Sodium/Dextrose (Heparin 98992 Unit/500 Ml D5w) 25,000 units in 500 mls @ 27 mls/hr IV .[id number] LEVAR; Protocol Stop: 08/18/25 21:14 Last Titration: 07/20/25 19:13 Dose: 1,350 units/hr, 27 mls/hr Documented By: GABRIELA Co-signed By: MIGUEL Admin: 07/20/25 18:38 Dose: 1,350 units/hr, 27 mls/hr Documented By: MIGUEL Co-signed By: DLR Titration: 07/20/25 18:38 Dose: Infused Documented By: MIGUEL Co-signed By: DLR Titration: 07/20/25 17:36 Dose: 1,200 units/hr, 24 mls/hr Documented By: MIGUEL Co-signed By: DLR Titration: 07/20/25 15:24 Dose: 0 units/hr, 0 mls/hr Documented By: MIGUEL Co-signed By: DLR Titration: 07/20/25 11:04 Dose: 1,200 units/hr, 24 mls/hr Documented By: MIGUEL Co-signed By: DLR Titration: 07/20/25 09:55 Dose: 0 units/hr, 0 mls/hr Documented By: MIGUEL Co-signed By: OS Titration: 07/20/25 03:38 Dose: 1,350 units/hr, 27 mls/hr Documented By: GABRIELA Co-signed By: MELISSA Admin: 07/19/25 22:01 Dose: 1,350 units/hr, 27 mls/hr Documented By: GABRIELA Co-signed By: ROSA Lisinopril (Lisinopril 5 Mg Tab) 5 mg PO QAM [facility] Stop: 08/19/25 08:59 Last Admin: 07/20/25 08:15 Dose: 5 mg Documented By: NILDA Multivitamins (Multivitamin Tab) 1 tab PO DAILY LEVAR Stop: 08/19/25 08:59 Last Admin: 07/20/25 08:16 Dose: 1 tab Documented By: NILDA Pantoprazole Sodium (Pantoprazole 40 Mg Tab) 40 mg PO DAILY LEVAR Stop: 08/19/25 08:59 Last Admin: 07/20/25 08:16 Dose: 40 mg Documented By: NILDA Discontinued Medications Aspirin (Aspirin Chew 324 Mg) 324 mg PO NOW STA Stop: 07/19/25 15:39 Last Admin: 07/19/25 15:52 Dose: 324 mg Documented By: ISAMAR Fentanyl Citrate (Fentanyl Citrate Pf 100 Mcg/2 Ml Vial) Confirm Administered Dose 100 mcg .ROUTE .STK-MED ONE Stop: 07/20/25 16:17 Last Admin: 07/20/25 17:27 Dose: Not Given Documented By: MIGUEL Fentanyl Citrate (Fentanyl Citrate Pf 100 Mcg/2 Ml Vial) Confirm Administered Dose 100 mcg .ROUTE .STK-MED ONE Stop: 07/20/25 17:10 Last Admin: 07/20/25 17:28 Dose: Not Given Documented By: MIGUEL Heparin Sodium (Porcine) (Heparin (Porcine) 1000 Unit/Ml 10 Ml (Canteen Operator Use Only)) Confirm Administered Dose 10,000 units .ROUTE .STK-MED ONE Stop: 07/20/25 17:11 Last Admin: 07/20/25 17:28 Dose: Not Given Documented By: MIGUEL Heparin Sodium (Porcine) (Heparin Sod (Porcine) 1000 Unit/Ml) 3,000 units IV NOW ONE Stop: 07/20/25 18:38 Last Admin: 07/20/25 19:17 Dose: 3,000 units Documented By: GABRIELA Co-signed By: MIGUEL Heparin Sodium/Dextrose (Heparin Iv Adult Wt-Based Standard *No* Initial Bolus Protocol) 1 each IV ONE STA; Protocol Stop: 07/19/25 20:47 Last Admin: 07/19/25 22:01 Dose: 1 each Documented By: GABRIELA Heparin Sodium/Sodium Chloride (Heparin In Nss Infusion 1000 Unit/500 Ml (2 U/Ml) Bag) Confirm Administered Dose 3,000 units IV .STK-MED ONE Stop: 07/20/25 16:17 Last Admin: 07/20/25 17:27 Dose: Not Given Documented By: MIGUEL Heparin Sodium/Sodium Chloride (Heparin In Nss Infusion 1000 Unit/500 Ml (2 U/Ml) Bag) Confirm Administered Dose 3,000 units IV .STK-MED ONE Stop: 07/20/25 17:12 Last Admin: 07/20/25 17:28 Dose: Not Given Documented By: MIGUEL Sodium Chloride (Nss) 500 mls @ 999 mls/hr IV .Q31M ONE Stop: 07/19/25 13:17 Last Infusion: 07/19/25 15:47 Dose: Infused Documented By: Admin: 07/19/25 13:20 Dose: 999 mls/hr Documented By: RYLEE Insulin Aspart (Insulin Aspart Per Unit Charge) 0 units SC ACHS [facility] Stop: 08/18/25 18:24 Last Admin: 07/19/25 20:21 Dose: Not Given Documented By: GABRIELA Co-signed By: MELISSA Admin: 07/19/25 19:59 Dose: Not Given Documented By: GABRIELA Insulin Aspart (Insulin Aspart Per Unit Charge) 0 units SC Q6 [facility] Stop: 08/19/25 00:29 Last Admin: 07/20/25 17:29 Dose: Not Given Documented By: Admin: 07/20/25 12:22 Dose: Not Given Documented By: Admin: 07/20/25 06:13 Dose: Not Given Documented By: Admin: 07/20/25 01:02 Dose: Not Given Documented By: GABRIELA Insulin Aspart (Insulin Aspart Per Unit Charge) 0 units SC ACHS [facility] Stop: 08/19/25 20:59 Last Admin: 07/20/25 20:26 Dose: Not Given Documented By: GABRIELA Ioversol (Optiray 350) Confirm Administered Dose 1 ml .ROUTE .STK-MED ONE Stop: 07/20/25 16:17 Last Admin: 07/20/25 17:27 Dose: Not Given Documented By: MIGUEL Ioversol (Optiray 350) Confirm Administered Dose 1 ml .ROUTE .STK-MED ONE Stop: 07/20/25 17:12 Last Admin: 07/20/25 17:28 Dose: Not Given Documented By: MIGUEL Midazolam HCl (Midazolam Hcl 1 Mg/Ml 2ml Vial) Confirm Administered Dose 2 mg .ROUTE .STK-MED ONE Stop: 07/20/25 16:16 Last Admin: 07/20/25 17:27 Dose: Not Given Documented By: MIGUEL Midazolam HCl (Midazolam Hcl 1 Mg/Ml 2ml Vial) Confirm Administered Dose 2 mg .ROUTE .STK-MED ONE Stop: 07/20/25 17:11 Last Admin: 07/20/25 17:28 Dose: Not Given Documented By: MIGUEL Nicardipine HCl (Nicardipine 2,000 Mcg/20 Ml Syr) Confirm Administered Dose 2,000 mcg .ROUTE .STK-MED ONE Stop: 07/20/25 16:17 Last Admin: 07/20/25 17:27 Dose: Not Given Documented By: MIGUEL Nicardipine HCl (Nicardipine 2,000 Mcg/20 Ml Syr) Confirm Administered Dose 2,000 mcg .ROUTE .STK-MED ONE Stop: 07/20/25 17:12 Last Admin: 07/20/25 17:28 Dose: Not Given Documented By: MIGUEL Nitroglycerin/Dextrose (Nitroglycerin/D5w 100mcg/Ml 20ml Syr) Confirm Administered Dose 2,000 mcg .ROUTE .STK-MED ONE Stop: 07/20/25 16:17 Last Admin: 07/20/25 17:27 Dose: Not Given Documented By: MIGUEL Nitroglycerin/Dextrose (Nitroglycerin/D5w 100mcg/Ml 20ml Syr) Confirm Administered Dose 2,000 mcg .ROUTE .STK-MED ONE Stop: 07/20/25 17:12 Last Admin: 07/20/25 17:28 Dose: Not Given Documented By: MIGUEL Oxycodone HCl (Oxycodone Hcl Ir 5 Mg Tab (Immediate Release)) 5 mg PO Q6 PRN PRN Reason: back pain Stop: 08/02/25 18:04 Last Admin: 07/20/25 02:33 Dose: 5 mg Documented By: Admin: 07/19/25 19:52 Dose: 5 mg Documented By: GABRIELA Imaging Data Radiologist's Impression: Chest X-Ray 07/19/25 12:44 XR chest 1V portable CLINICAL HISTORY: Chest pain, nonspecific COMPARISON STUDY: 01/08/2024 and 08/12/2023 FINDINGS: There is mild cardiomegaly without pulmonary vascular congestion. There is a nodular density at the right midlung measuring approximately 2 cm. There is reticular and faint patchy opacity at the left lung base. No lobar consolidation or pleural effusion. No pneumothorax. IMPRESSION: 1. Possible early pneumonia left lung base. 2. Right mid lung nodular density. Suggest follow-up CT scan of the chest. ACT 112: Negative or not required by law. Electronically signed by: Paco Yusuf M.D. 07/19/2025 1:29 PM Discharge Plan Visit Data Chief Complaint: Chest Pain Stated Complaint: CHEST PAIN ED Provider: Otis Fulton Discharge Problem: Exertional chest pain, S/P coronary artery stent placement, CAD (coronary artery disease) Patient Disposition: Admitted As Inpatient Condition: Fair Discharge Instructions Interventions: ED Discharge Assessment Last Done: 07/19/25 18:11 Discharge Problem: CAD (coronary artery disease) Qualifiers: Coronary Disease-Associated Artery/Lesion type: unspecified vessel or lesion type [place] vs. transplanted heart: [place] heart Associated angina: unspecified whether angina present Qualified Code(s): I25.10 - Atherosclerotic heart disease of [place] coronary artery without angina pectoris
--- NOTE | 2025-07-19 17:36 | History & Physical Report ---
<Statement entered by Dinesh Luevano DO - 07/19/25 18:28> chest pain relieved by nitro. complex cardiac history regarding his CAD. appreciate cardio input I spent a total of 15 minutes coordinating, documenting, and providing care for this patient excluding time spent in the performance of separately billed services. This included personally reviewing all current laboratories and imaging studies, medical reconciliation, outpatient chart review and discussion with specialists Date of Service July 19, 2025 Assessment & Plan (1) Exertional chest pain: (2) S/P coronary artery stent placement: (3) Elevated troponin: (4) Aortic stenosis: (5) Hypertension: (6) Type 2 diabetes mellitus: (7) Dyslipidemia: (8) Interstitial lung disease: (9) Barretts esophagus: (10) Chronic back pain: Plan 84 year old male with PMH significant for dyslipidemia, type 2 diabetes, interstitial lung disease, ACE, hypertension, atherosclerosis of aorta, CAD, Celiac disease, Nash's esophagus, BPH, lumbar DDD, and chronic back pain who presents to the ED on 07/19/2025 with chest pain. Exertional chest pain Elevated troponin Patient presenting with two episodes of exertional chest pain with SOB requiring x2 doses of nitro at home Likely stable angina in setting of chronic exertional chest pain with SOB typically relieved by rest and rare nitro use Currently pain free EKG unremarkable Initial troponin 28 with repeat 44 Trend troponin q6hr Cardiology consulted: shireen felix for medical management vs intervention Severe multivessel CAD s/p stent x2 (2023) s/p cardiac cath in December [address] Amador revealing severe multivessel CAD (70% proximal to mid RCA, 95% distal RCA, 80% proximal circumflex, 70% distal circumflex, 80-90% calcified mid LAD, subtotal distal LAD occlusion with collaterals to apical vessel) with PCI of RCA with x2 HECTOR Following with [facility] last seen November 2024 Continue baby aspirin and Plavix Intolerant of Imdur and Ranexa Update LOLI - last in November 2023 revealed EF 65-70%, mild LVH, mild aortic stenosis with trace regurg, mild MR Hypertension Continue lisinopril Type 2 diabetes Hold home metformin BSG ACHS and SSI while inpatient Dyslipidemia Takes Zetia and red yeast rice Does not tolerate statins Continue Zetia Nash's esophagus Continue pantoprazole BPH Continue finasteride Chronic back pain s/p multiple back surgeries, spinal stimulator, nerve ablations Takes hydrocodone-tylenol and gabapentin for chronic back pain Continue gabapentin ACE Not on CPAP DVT Prophylaxis: SCDs for now Code Status: DNR/DNI - As per discussion at bedside with the patient. PCP: Manav De La Vega Disposition: admit to tele Patient seen in collaboration with Dr. Luevano. Please see addendum. I spent a total of 70 minutes coordinating, documenting and providing care for this patient excluding time spent in the performance of separately billed services or time spent by another provider/QHP. Admission and Anticipated Discharge Date Admission Date: July 19, 2025 History of Present Illness Chief Complaint: chest pain Primary Care Provider: Manav De La Vega, DO 84 year old male with PMH significant for dyslipidemia, type 2 diabetes, interstitial lung disease, ACE, hypertension, atherosclerosis of aorta, CAD, Celiac disease, Nash's esophagus, BPH, lumbar DDD, and chronic back pain who presents to the ED on 07/19/2025 with chest pain. Patient reports that he experienced two episodes of chest pain with exertion. The first happened after walking to his garage where he felt an intense heaviness and pressure on his chest with significant SOB. He took nitroglycerin and the pain resolved. Then he started blowing leaves with a handheld leaf blower and developed the same symptoms causing him to have to stop activity. He took another dose of nitroglycerin and presented to the ED for evaluation. He denies diaphoresis, N/V as well as fevers, chills, cough, congestion, abdominal pain, dysuria, diarrhea. Patient tells me he has chronic chest pain with exertion that occurs a couple times per week for the last six months. He usually can stop his exertional activity and the chest pain and SOB will resolve. Rarely, twice in the last six months, he takes one nitroglycerin and the pain resolves completely. Today was the first time since his last cardiac cath in December 2023 that he had to take two doses of nitroglycerin, which is why he is seeking evaluation. He is compliant with his medications including cardiac meds. Notes he does not tolerate statins or Imdur or Ranexa. Follows with Dr. Turcios of [facility]. Allergies Allergy/AdvReac Type Severity Reaction Status Date / Time gluten Allergy Intermediate BREAK OUT Verified 07/19/25 15:51 IN BLISTERS iodine Allergy Intermediate ITCHY. Verified 07/19/25 15:51 SAME REACTION GLUTEN Penicillins Allergy Intermediate RASH Verified 07/19/25 15:51 meloxicam AdvReac Severe RENAL Verified 07/19/25 15:51 COMPLICATIONS atorvastatin [From Lipitor] AdvReac Intermediate Muscle Pain Verified 07/19/25 15:51 tramadol AdvReac Intermediate BAD Verified 07/19/25 15:51 STOMACH PROBLEMS codeine AdvReac Mild itching Verified 07/19/25 15:51 Home Medications Medication Instructions Recorded Confirmed Type gabapentin 600 mg tablet See Rx Instructions .Route .COMPLEX 08/06/19 07/19/25 History pantoprazole 40 mg tablet,delayed 40 mg PO DAILY 08/06/19 07/19/25 History release finasteride 5 mg tablet 5 mg PO DAILY 09/04/20 07/19/25 History hydrocodone 10 mg-acetaminophen 1 tab PO Q6H PRN Severe Pain 12/08/20 07/19/25 History 325 mg tablet (Scale Score 7-10) aspirin 81 mg tablet,delayed 81 mg PO DAILY 07/27/21 07/19/25 History release cyanocobalamin (vitamin B-12) 100 100 mcg PO DAILY 07/27/21 07/19/25 History mcg tablet (Vitamin B-12) red yeast rice 600 mg tablet 600 mg PO BID 07/27/21 07/19/25 History ezetimibe 10 mg tablet (Zetia) 10 mg PO DAILY #90 tabs 08/22/21 07/19/25 Rx metformin 500 mg tablet,extended 500 mg PO BID 08/12/23 07/19/25 History release 24 hr nitroglycerin 0.4 mg sublingual 0.4 mg sublingual Q5M PRN chest 10/22/23 07/19/25 Rx tablet pain #25 tabs ondansetron HCl 4 mg tablet 4 mg PO Q6 PRN naysea 01/08/24 07/19/25 History clopidogrel 75 mg tablet 75 mg PO QAM #90 tabs 07/21/24 07/19/25 Rx lisinopril 5 mg tablet 5 mg PO QAM 07/19/25 07/19/25 History multivitamin 1 tab PO DAILY 07/19/25 07/19/25 History Past Med/Surg History Problem List (Updated 07/19/25 @ 17:25 by RANDAL Cobb) Exertional chest pain (Acute) S/P coronary artery stent placement Aortic stenosis Unstable angina Chest pain (Acute) Elevated troponin (Acute) Interstitial lung disease (Acute) Barretts esophagus Chronic back pain Hypertension Dyslipidemia CAD (coronary artery disease) NSTEMI on 06/20/11 (peak troponin of 2.7) Cardiac catheterization 06/21/11: Multivessel disease. mid LAD stenosis 40% followed by a long 70% stenosis at the bifurcation of the third diagonal vessel. The third diagonal vessel also had an ostial 70% lesion. The distal LAD towards the apex was completely occluded but filled from left to left and [id number] collaterals. A large septal branch also had a 60% proximal stenosis. The distal circumflex had a 90% long stenosis; proximally there was a 30% stenosis. The RCA had a proximal 50-60% stenosis. This was the dominant vessel. Medical management was instituted. Medical History (Updated 07/19/25 @ 17:25 by RANDAL Cobb) Aortic valve sclerosis Spinal stenosis Cervical radiculopathy SBO (small bowel obstruction) Leukocytosis Thrombocytosis Hyperglycemia DVT prophylaxis Partial obstruction of small intestine SOB (shortness of breath) Sacroiliitis Acute hypoxic respiratory failure Parainfluenza Sepsis Multifocal pneumonia Type 2 diabetes mellitus Spinal cord stimulator status Esophageal reflux Surgical History (Updated 07/19/25 @ 17:25 by RANDAL Cobb) H/O lumbar discectomy L2-3, L3-4 w/ artificial discs by Dr. Huerta 11/2015 S/P insertion of spinal cord stimulator Dr. Arredondo - 2017 H/O exploratory laparotomy , lysis of adhesions for SBO H/O hernia repair History of hemilaminectomy S/P shoulder surgery S/P knee surgery S/P cholecystectomy S/P appendectomy Family History Mother Coronary heart disease Social History Smoking Status: Never smoker Second Hand Exposure: No; Do You Dip or Chew Tobacco: No; Hx Alcohol Use: No Hx Substance Use: No Preferred Language: Turkmen Communication Ability: Effective Visual Impairment: No Limitations Hearing Ability: Hard of Hearing Senior Architect/Design Manager Required: No Beliefs That Will Affect Care: None marital status: / Current Living Situation: Alone Current Living Situation Comment: Home alone, independent ( passed 2021). current occupational status: retired Feels Safe at Home: Yes Assistive Devices: None Review of Systems Review of Systems: All systems reviewed & are unremarkable except as noted in HPI & below Physical Exam Physical Exam: General/Psych: WD/WN, sitting up in bed, NAD, conversing easily, euthymic affect Head: normocephalic, atraumatic Eyes: normal inspection, PERRL, conjunctivae pink ENT: external ear and nose normal, oropharynx normal Neck: normal visual inspection, trachea midline, no thyromegaly Respiratory: normal respiratory effort, lungs course with crackles in the bilateral bases, no accessory muscle use Cardiovascular: regular rate and rhythm, +murmur Extremities: no cyanosis or clubbing, normal peripheral pulses, no BLE edema Abdomen/GI: normal bowel sounds, soft, nontender Neurologic/MSK: A+Ox3, motor strength 5/5, moves all extremities Skin: no rashes, normal color, warm and dry Results & Data Results & Data Vital Signs (Past 12 Hours) Vital Signs Temp Pulse Pulse Resp BP BP Pulse Ox 07/19/25 15:47 61 20 120/69 95 07/19/25 15:21 66 19 97 07/19/25 13:11 57 L 18 139/69 94 07/19/25 12:47 57 L 07/19/25 12:44 19 94 07/19/25 12:21 36.1 C L 60 21 125/63 94 07/19/25 12:19 58 L 18 139/69 93 07/19/25 12:19 98 O2 Del Method 07/19/25 15:47 Room Air 07/19/25 15:21 Room Air 07/19/25 13:11 Room Air 07/19/25 12:47 07/19/25 12:44 Room Air 07/19/25 12:21 Room Air 07/19/25 12:19 Room Air 07/19/25 12:19 Room Air Laboratory Results Short CBC 07/19/25 Range/Units 12:35 WBC 13.64 H (4.8-10.8) K/ul Hgb 12.0 L (14.0-18.0) g/dl Hct 35.7 L (42.0-52.0) % Plt Count 341 (130-400) K/uL BMP 07/19/25 12:35 Sodium 135 L Potassium 4.7 Chloride 101 Carbon Dioxide 25 BUN 35 H Creatinine 1.11 Glucose 144 H Calcium 9.2 Liver Function 07/19/25 Range/Units 12:35 Total Bilirubin 0.3 (0.2-1.0) mg/dl Direct Bilirubin 0.1 (0-0.2) mg/dl AST 15 (13-39) U/L ALT 12 (7-52) U/L Alkaline Phosphatase 93 (34-104) U/L Albumin 4.3 (3.4-5.0) gm/dl Urine 07/19/25 Range/Units Unknown Urine Color Yellow Urine Appearance Clear (Clear) Urine pH 5.0 (4.5-7.5) Ur Specific [place] 1.021 (1.000-1.030) Urine Protein Negative (Negative) Urine Glucose (UA) Negative (Negative) I have independently reviewed and interpreted patient's admitting labs including CBC, CMP, PTT, PT/INR, mag, phos, troponin. Diagnostic Findings Chest X-Ray 07/19/25 12:44 XR chest 1V portable CLINICAL HISTORY: Chest pain, nonspecific COMPARISON STUDY: 01/08/2024 and 08/12/2023 FINDINGS: There is mild cardiomegaly without pulmonary vascular congestion. There is a nodular density at the right midlung measuring approximately 2 cm. There is reticular and faint patchy opacity at the left lung base. No lobar co nsolidation or pleural effusion. No pneumothorax. IMPRESSION: 1. Possible early pneumonia left lung base. 2. Right mid lung nodular density. Suggest follow-up CT scan of the chest. ACT 112: Negative or not required by law. Electronically signed by: Paco Yusuf M.D. 07/19/2025 1:29 PM ECG Additional Comments: I have independently reviewed and interpreted patient's admitting EKG which revealed: sinus bradycardia at a rate of 56bpm Code Status & VTE Plan Code Status DNR/DNI VTE Prophylaxis Plan VTE Prophylaxis will be ordered: Yes
[2025-07-19] MEDS ORDERED: CARBOHYDRATES FOR HYPOGLYCEMIA PO PRN (18:25)
[2025-07-19] MEDS ORDERED: NITROGLYCERIN SL 0.4 MG/TAB TAB SL PRN (18:25)
[2025-07-19] MEDS ORDERED: GLUCOSE 10 TAB/TUBE PO PRN (18:25)
[2025-07-19] MEDS ORDERED: ACETAMINOPHEN 325 MG TAB PO PRN (18:25)
[2025-07-19] MEDS ORDERED: POLYETHYLENE (MIRALAX) 17 GM PACK PO PRN (18:25)
[2025-07-19] MEDS ORDERED: GLUCAGON FOR INJ 1 MG VIAL SQ PRN (18:25)
[2025-07-19] MEDS ORDERED: DEXTROSE 50% 50 ML SYRINGE IV PRN (18:25)
[2025-07-19] MEDS ORDERED: GLUCOSE 40% GEL 15 GM TUBE PO PRN (18:25)
[2025-07-19] MEDS: INSULIN ASPART PER UNIT CHARGE SC SCH (19:59)
[2025-07-19] MEDS: GABAPENTIN 600 MG TAB PO SCH (20:30)
--- NOTE | 2025-07-19 20:47 | Communication Note ---
Date of Service: July 19, 2025 Notified by RN of progressive troponin elevation 58 from 44 Patient currently comfortable. AP NSTEMI History CAD Add IV heparin to regimen N.p.o. after midnight in anticipation of ischemic workup
[2025-07-19 21:33] LABS: Hematocrit (blood only) 34.7 % (42.0-52.0); Hemoglobin 11.6 g/dl (14.0-18.0); Immature Granulocytes # (auto) 0.03 K/uL (0.01-0.20); Immature Granulocytes % (auto) 0.3 %; Mean Corpuscular Hemoglobin 29.3 pg (25.0-34.0); Mean Corpuscular Volume 87.6 fL (80.0-100.0); Platelet Count 303 K/uL (130-400); RDW Standard Deviation 39.7 fL (36.4-46.3); Red Blood Count 3.96 M/uL (4.70-6.10); White Blood Count 10.76 K/ul (4.8-10.8)
[2025-07-19 21:59] LABS: INR 1.0 (0.9-1.1); Partial Thromboplastin Time 26 Seconds (21-31); Prothrombin Time 10.3 Seconds (9.0-12.0)
[2025-07-19] MEDS: Heparin IV Adult Wt-Based Standard *NO* INITIAL Bolus Protocol IV STA (22:01)
[2025-07-19] MEDS: HEPARIN 25000 UNIT/500 ML D5W 25,000 UNITS/500 ML BAG IV SCH (22:01)
[2025-07-20] MEDS: INSULIN ASPART PER UNIT CHARGE SC SCH ×2 (01:02→20:26)
[2025-07-20 02:44] LABS: Hematocrit (blood only) 33.2 % (42.0-52.0); Hemoglobin 11.2 g/dl (14.0-18.0); Mean Corpuscular Hemoglobin 29.6 pg (25.0-34.0); Mean Corpuscular Volume 87.6 fL (80.0-100.0); Platelet Count 279 K/uL (130-400); RDW Standard Deviation 39.8 fL (36.4-46.3); Red Blood Count 3.79 M/uL (4.70-6.10); White Blood Count 9.09 K/ul (4.8-10.8)
[2025-07-20 02:59] LABS: Anion Gap 6.0 (3-11); Blood Urea Nitrogen 31.0 mg/dl (6-23); Calcium 8.7 mg/dl (8.6-10.3); Carbon Dioxide 25.0 mmol/L (21-32); Chloride 106.0 mmol/L (98-107); Creatinine Clr Calc Pharmacy 47.0 ml/min; Glucose 115.0 mg/dl (70-99(Fasting)); Potassium 4.5 mmol/L (3.5-5.1); Sodium 137.0 mmol/L (136-145)
[2025-07-20 03:32] LABS: ANTI-Xa, UFH(UnfractionatedHep 0.44 IU/ml (0.3-0.7)
--- NOTE | 2025-07-20 07:59 | Cardiology Consultation ---
Date of Consultation July 20, 2025 Assessment & Plan (1) Unstable angina: (2) Chest pain: (3) CAD (coronary artery disease): (4) Elevated troponin: (5) Aortic stenosis: (6) Hypertension: (7) Dyslipidemia: Plan Assessment: 84 year old male with known history of significant coronary artery disease with prior PCI presents with angina symptoms relived with SL NTG. EKG with no acute ST-T wave changes. Troponin elevation with peak of 58.2. Prior intolerance to long-acting nitrates with no improvement in symptoms. Cardiology consulted for further assessment and recommendations. Plan: 1. Unstable angina 2. Chest pain 3. CAD 4. Elevated Troponin -patient with prior history of NSTEMI and complex coronary disease presents with 6 months of progressively worsening exertional angina requiring SL NTG. -Troponin elevation with peak at 58.2. Heparin gtt currently on board. -Echocardiogram pending -Bradycardiac on telemetry with no acute events overnight. -Discussed patient's symptoms, prior history, and prior intolerance to anti- anginal therapies. Patient would like to proceed with cardiac catheterization for further evaluation. -discussed goals of care and knowledge or extensive underlying disease vs symptom management. Will discuss case with Dr. Pacheco. -Continue Lisinopril, ASA 81mg, Plavix, and zetia. Not on beta milagro therapy s/t bradycardia 5. Aortic Stenosis -Noted as mild on previous study dated 2023 -Patient is euvolemic on exam -Echocardiogram pending 6. HTN -Above goal this morning prior to medications. further med titration pending work up. -Continue Lisinopril at this time 7. Dyslipidemia -Reports intolerance to statin therapies, currently on Zetia -Review of OP labs shows LDL 94 (05/10/25) -Strong candidate for consideration of Repatha. Can be discussed outpatient. Case has been discussed with Dr. Pacheco. Further recommendations regarding plan of care as per his assessment. I spent a total of 50 minutes on the date of service in preparation, delivery, documentation of the care provided to the patient excluding any time spent in the performance of separately billed services. RANDAL Ricci [facility] Cardiology [facility] Supervising Physician Co-Signing Physician Notes Patient was seen and personally examined. Full assessment and plan as outlined by advanced provider above. Care and management discussed and personally endorsed 84-year-old male with known multivessel severe coronary disease with prior coronary invention December 2023. Presents now noting recent escalation in exertional symptoms of shortness of breath fatigue and chest pain. Yesterday with minimal activity walking into poll to vote and developed typical angina. Took sublingual nitroglycerin with relief Recurrence of symptoms upon returning home also relieved by nitroglycerin resolving on ER evaluation. Prior attempts with increasing medical therapies included poor tolerance of high-dose nitrates. Resting bradycardia limits beta-milagro therapies. Currently on dual antiplatelet therapy Discussed options of management. Offered diagnostic coronary angiography with possible coronary intervention for symptom relief with patient agreeable and noting reason for presentation. Tentatively scheduled for cardiac catheterization later today Issues addressed 1. Severe multivessel coronary disease with unstable angina/non-ST segment elevation myocardial infarction 2. Sinus bradycardia 3. Dyslipidemia with statin intolerance History of Present Illness Reason for Consultation: Chest pain Requesting Physician: Mario hospitalist Attending Physician: Georgina Marshall MD History of Present Illness HPI: Patient is a 84 year old male with PMHx as outlined below that presents with acute complaints of chest pain. Patient states that he has been having increased episodes of angina over the past 6 months, but rarely took SL NTG. He reports that yesterday he had gotten up and did his normal routine, but upon leaving the house to go vote, developed chest pressure with some associated shortness of breath. Upon arriving at the voting site, he took a total of 2 SL NTG appropriately spaced apart with resolution of his symptoms. Of note, patient was previously on both isosorbide mononitrate and Ranexa. He did not tolerate the Isosorbide and felt terrible therefore self-discontinuing sympotms. He only took one dose of Ranexa reporting he did not like the way he felt and stopped it. (as per review of EPIC records 08/10/24). Cardiac Problem list: 1. CAD--NSTEMI 2010, NSTEMI December 2023 s/p PCI with HECTOR x2 proximal and distal RCA non-overlapping; severe residual left circumflex and LAD disease medically managed. 2. Dyslipidemia 3. Type II DM 4. Interstitial lung disease 5. ACE 6. HTN 7. Celiac disease 8. Nash's esophagus 9. Lumbar disc disease/chronic back pain 10. Mild last seen in our office by Dr. Turcios EKG Sinus Bradycardia Rate 56bpm, QTC 374ms Chest xray: IMPRESSION: 1. Possible early pneumonia left lung base. 2. Right mid lung nodular density. Suggest follow-up CT scan of the chest. High sensitivity troponin peaked at 58.2, currently on Heparin gtt Review of telemetry shows SB with occasional PAC's rates 40-50's. Allergies Allergy/AdvReac Type Severity Reaction Status Date / Time gluten Allergy Intermediate BREAK OUT Verified 07/19/25 15:51 IN BLISTERS iodine Allergy Intermediate ITCHY. Verified 07/19/25 15:51 SAME REACTION GLUTEN Penicillins Allergy Intermediate RASH Verified 07/19/25 15:51 meloxicam AdvReac Severe RENAL Verified 07/19/25 15:51 COMPLICATIONS atorvastatin [From Lipitor] AdvReac Intermediate Muscle Pain Verified 07/19/25 15:51 tramadol AdvReac Intermediate BAD Verified 07/19/25 15:51 STOMACH PROBLEMS codeine AdvReac Mild itching Verified 07/19/25 15:51 Home Medications Medication Instructions Recorded Confirmed Type gabapentin 600 mg tablet See Rx Instructions .Route .COMPLEX 08/06/19 07/19/25 History pantoprazole 40 mg tablet,delayed 40 mg PO DAILY 08/06/19 07/19/25 History release finasteride 5 mg tablet 5 mg PO DAILY 09/04/20 07/19/25 History hydrocodone 10 mg-acetaminophen 1 tab PO Q6H PRN Severe Pain 12/08/20 07/19/25 History 325 mg tablet (Scale Score 7-10) aspirin 81 mg tablet,delayed 81 mg PO DAILY 07/27/21 07/19/25 History release cyanocobalamin (vitamin B-12) 100 100 mcg PO DAILY 07/27/21 07/19/25 History mcg tablet (Vitamin B-12) red yeast rice 600 mg tablet 600 mg PO BID 07/27/21 07/19/25 History ezetimibe 10 mg tablet (Zetia) 10 mg PO DAILY #90 tabs 08/22/21 07/19/25 Rx metformin 500 mg tablet,extended 500 mg PO BID 08/12/23 07/19/25 History release 24 hr nitroglycerin 0.4 mg sublingual 0.4 mg sublingual Q5M PRN chest 10/22/23 07/19/25 Rx tablet pain #25 tabs ondansetron HCl 4 mg tablet 4 mg PO Q6 PRN naysea 04/25/24 11/04/25 History clopidogrel 75 mg tablet 75 mg PO QAM #90 tabs 07/21/24 07/19/25 Rx lisinopril 5 mg tablet 5 mg PO QAM 07/19/25 07/19/25 History multivitamin 1 tab PO DAILY 07/19/25 07/19/25 History Patient History Medical History (Updated 07/19/25 @ 17:25 by RANDAL Cobb) Aortic valve sclerosis Spinal stenosis Cervical radiculopathy SBO (small bowel obstruction) Leukocytosis Thrombocytosis Hyperglycemia DVT prophylaxis Partial obstruction of small intestine SOB (shortness of breath) Sacroiliitis Acute hypoxic respiratory failure Parainfluenza Sepsis Multifocal pneumonia Type 2 diabetes mellitus Spinal cord stimulator status Esophageal reflux Surgical History (Updated 07/19/25 @ 17:25 by RANDAL Cobb) H/O lumbar discectomy L2-3, L3-4 w/ artificial discs by Dr. Huerta 11/2015 S/P insertion of spinal cord stimulator Dr. Arredondo - 2017 H/O exploratory laparotomy , lysis of adhesions for SBO H/O hernia repair History of hemilaminectomy S/P shoulder surgery S/P knee surgery S/P cholecystectomy S/P appendectomy Family History Mother Coronary heart disease Social History Smoking Status: Never smoker Second Hand Exposure: No; Do You Dip or Chew Tobacco: No; Hx Alcohol Use: No Hx Substance Use: No Preferred Language: Turkmen Communication Ability: Effective Visual Impairment: No Limitations Hearing Ability: Hard of Hearing [place] Required: No Beliefs That Will Affect Care: None marital status: / Current Living Situation: Alone Current Living Situation Comment: Home alone, independent ( passed 2021). current occupational status: retired Other Information That Helps Us Care for You: No Feels Safe at Home: Yes Safety Concerns: Feels Safe At This Time Assistive Devices: Denture - Upper and Glasses Review of Systems Review of Systems: All systems reviewed & are unremarkable except as noted in HPI & below Physical Exam Constitutional: well developed and well nourished; no acute distress Neck: normal visual inspection and trachea midline Respiratory: normal respiratory effort, lungs clear to auscultation Cardiovascular: Rate/Rhythm: regular rhythm and + bradycardic Heart Sounds: normal S1 and + murmur (+2/6 systolic murmur) Extremities: no edema Skin: no rashes, warm and dry Psychiatric: A+Ox3, euthymic affect Results & Data Vital Signs (Past 12 Hours) Vital Signs Temp Pulse Pulse Resp BP Pulse Ox O2 Del Method 07/20/25 07:34 41 L 07/20/25 02:30 36.5 C 49 L 18 134/71 96 Room Air 07/19/25 23:02 36.9 C 51 L 18 111/61 94 Room Air 07/19/25 22:47 50 L Laboratory Results Cardiac Enzymes 07/19/25 07/19/25 07/19/25 Range/Units 12:35 14:50 20:01 AST 15 (13-39) U/L Troponin I High Sens 28.6 H 44.7 H D 58.2 H* D (0-20) pg/ml 07/20/25 Range/Units 02:27 AST (13-39) U/L Troponin I High Sens 52.1 H* (0-20) pg/ml Coagulation 07/19/25 07/19/25 Range/Units 12:35 21:21 PT 10.3 10.3 (9.0-12.0) Seconds APTT 26 (21-31) Seconds CBC 07/19/25 07/19/25 07/20/25 Range/Units 12:35 21:21 02:27 WBC 13.64 H 10.76 9.09 (4.8-10.8) K/ul RBC 4.01 L 3.96 L 3.79 L (4.70-6.10) M/uL Hgb 12.0 L 11.6 L 11.2 L (14.0-18.0) g/dl Hct 35.7 L 34.7 L 33.2 L (42.0-52.0) % Plt Count 341 303 279 (130-400) K/uL Neut # (Auto) 11.05 H 7.59 H (1.40-6.50) K/uL Lymph # (Auto) 1.47 2.26 (1.20-3.40) K/uL [place] # (Auto) 1.03 H 0.82 H (0.11-0.59) K/uL Eos # (Auto) 0.01 0.03 (0.00-0.50) K/uL Baso # (Auto) 0.02 0.03 (0.00-0.20) K/uL Comprehensive Metabolic Panel 07/19/25 07/20/25 Range/Units 12:35 02:27 Sodium 135 L 137 (136-145) mmol/L Potassium 4.7 4.5 (3.5-5.1) mmol/L Chloride 101 106 (98-107) mmol/L Carbon Dioxide 25 25 (21-32) mmol/L BUN 35 H 31 H (6-23) mg/dl Creatinine 1.11 1.15 (0.6-1.4) mg/dl Glucose 144 H 115 H (70-99(Fasting)) mg/dl Calcium 9.2 8.7 (8.6-10.3) mg/dl Direct Bilirubin 0.1 (0-0.2) mg/dl AST 15 (13-39) U/L ALT 12 (7-52) U/L Alkaline Phosphatase 93 (34-104) U/L Total Protein 7.5 (6.0-8.3) gm/dl Albumin 4.3 (3.4-5.0) gm/dl Intake and Output 07/19/25 07/20/25 07/20/25 22:59 06:59 14:59 Intake Total 1000 / 1151.65 151.65 / 1151.65 Output Total 200 / 1325 1125 / 1325 Balance 800 / -173.35 -973.35 / -173.35 Intake: IV 500 / 651.65 151.65 / 651.65 Heparin 11976 Unit/500 ml D5w 151.65 / 151.65 25,000 units In 500 ml @ 1,350 UNITS/HR 27 mls/hr IV .[id number] LEVAR Rx#:[id number] Sodium Chloride 0.9% 500 ml @ 500 / 500 999 mls/hr IV .Q31M ONE Rx#: [id number] Oral 500 / 500 0 / 500 Output: Urine 200 / 1325 1125 / 1325 Other: Other Intake Source NPO # Unmeasured Voids 1 Weight 78.4 kg 78.6 kg Weight Measurement Method [facility] Cardiac catheterization report (Dr. Amador [facility]) January 09, 2024: 1. Severe multivessel coronary artery disease -70% proximal to mid RCA, 95% distal RCA -80% proximal circumflex, 70% distal circumflex -80-90% calcified mid LAD. Subtotal distal LAD occlusion with collaterals to apical vessel. 2. Normal intracardiac filling pressure (LVEDP 11) 3. Successful PCI of RCA with 2 nonoverlapping drug-eluting stents. -Proximal 3.0 x 18 mm Haider; postdilated with 3.5 NC -Distal 2.5 x 15 mm Leonard; postdilated with 3.0 NC 2D echocardiogram report [facility] 01/09/2024: LVEF 65-70% Mild aortic stenosis with trace aortic regurgitation Mild mitral regurgitation PG Care Time/CCT Total # of Minutes Spent Total Time Spent with Patient: Total time spent is greater than 50% in coordination of care (as documented) at patient's floor/unit and/or counseling patient: Coding Level of Care Code 22626 IN/OBS CONSULT LVL 5,80M Diagnoses Unstable angina I20.0 Chest pain R07.9 CAD (coronary artery disease) I25.10 Elevated troponin R79.89 Aortic stenosis I35.0 Hypertension I10 Dyslipidemia E78.5 Time Spent (min) 80
[2025-07-20] MEDS: ASPIRIN 81 MG ECTAB PO SCH (08:14)
[2025-07-20] MEDS: EZETIMIBE 10 MG TAB PO SCH (08:14)
[2025-07-20] MEDS: CLOPIDOGREL BISULFATE 75 MG TAB PO SCH (08:14)
[2025-07-20] MEDS: FINASTERIDE 5 MG TAB PO SCH (08:15)
[2025-07-20] MEDS: MULTIVITAMIN TAB PO SCH (08:16)
[2025-07-20] MEDS: CYANOCOBALAMIN (B-12) 100 MCG TABLET PO SCH (08:17)
[2025-07-20 09:49] LABS: ANTI-Xa, UFH(UnfractionatedHep 0.82 IU/ml (0.3-0.7)
--- NOTE | 2025-07-20 10:05 | XCELERA ---
[id number]
--- NOTE | 2025-07-20 12:27 | Electrocardiogram Report ---
Test Reason : Blood Pressure : */* mmHG Vent. Rate : 56 BPM Atrial Rate : 56 BPM P-R Int : 184 ms QRS Dur : 94 ms QT Int : 388 ms P-R-T Axes : 53 -1 39 degrees QTcB Int : 374 ms Sinus bradycardia Otherwise normal ECG When compared with ECG of 21-Jul-2024 10:28, Premature ventricular complexes are no longer Present QRS duration has increased Criteria for Inferior infarct are no longer Present Confirmed by Angel Kirby ([id number]) on 07/20/2025 12:26:59 PM Referred By: Confirmed By: Angel Kirby
--- NOTE | 2025-07-20 12:46 | Electrocardiogram Report ---
Test Reason : Blood Pressure : */* mmHG Vent. Rate : 48 BPM Atrial Rate : 48 BPM P-R Int : 188 ms QRS Dur : 94 ms QT Int : 406 ms P-R-T Axes : 78 -4 26 degrees QTcB Int : 362 ms Sinus bradycardia with Premature supraventricular complexes Minimal voltage criteria for LVH, may be normal variant ( R in aVL ) Possible Anterior infarct , age undetermined Abnormal ECG When compared with ECG of 19-Jul-2025 12:30, (unconfirmed) Premature supraventricular complexes are now Present Confirmed by Angel Kirby ([id number]) on 07/20/2025 12:45:41 PM Referred By: REFERRED SELF Confirmed By: Angel Kirby
--- NOTE | 2025-07-20 13:00 | Hospitalist Progress Note ---
Date of Service July 20, 2025 Assessment & Plan (1) Exertional chest pain: (2) S/P coronary artery stent placement: (3) Elevated troponin: (4) Aortic stenosis: (5) Hypertension: (6) Type 2 diabetes mellitus: (7) Dyslipidemia: (8) Interstitial lung disease: (9) Barretts esophagus: (10) Chronic back pain: Plan 84 year old male with PMH significant for dyslipidemia, type 2 diabetes, interstitial lung disease, ACE, hypertension, atherosclerosis of aorta, CAD, Celiac disease, Nash's esophagus, BPH, lumbar DDD, and chronic back pain who presents to the ED on 07/19/2025 with chest pain. Exertional chest pain Elevated troponin Patient presenting with two episodes of exertional chest pain with SOB requiring x2 doses of nitro at home Likely stable angina in setting of chronic exertional chest pain with SOB typically relieved by rest and rare nitro use Currently pain free EKG unremarkable Initial troponin 28 with repeat 44 with with elevation to elevation to 58.2 and then improved to 52.1 Appreciate cardiology input and possible cardiac cath today or tomorrow Will continue current medications including IV heparin Severe multivessel CAD s/p stent x2 (2023) s/p cardiac cath in December [address] Amador revealing severe multivessel CAD (70% proximal to mid RCA, 95% distal RCA, 80% proximal circumflex, 70% distal circumflex, 80-90% calcified mid LAD, subtotal distal LAD occlusion with collaterals to apical vessel) with PCI of RCA with x2 HECTOR Following with [facility] Card[facility] last seen November 2024 Continue baby aspirin and Plavix Intolerant of Imdur and Ranexa Update LOLI - last in November 2023 revealed EF 65-70%, mild LVH, mild aortic stenosis with trace regurg, mild MR Hypertension Continue lisinopril Type 2 diabetes Hold home metformin BSG ACHS and SSI while inpatient Dyslipidemia Takes Zetia and red yeast rice Does not tolerate statins Continue Zetia Nash's esophagus Continue pantoprazole BPH Continue finasteride Chronic back pain s/p multiple back surgeries, spinal stimulator, nerve ablations Takes hydrocodone-tylenol and gabapentin for chronic back pain Continue gabapentin ACE Not on CPAP DVT Prophylaxis: SCDs for now Code Status: DNR/DNI - As per discussion at bedside with the patient. PCP: Manav De La Vega Disposition: admit to tele Patient seen in collaboration with Dr. Luevano. Please see addendum. I spent a total of 70 minutes coordinating, documenting and providing care for this patient excluding time spent in the performance of separately billed services or time spent by another provider/QHP. Admission and Anticipated Discharge Date Admission Date: July 19, 2025 Subjective 07/20/2025 The patient was seen and examined in telemetry unit He has significant CAD status post stents placement and was admitted with exertional chest pain Remains free from any pain since admission He has been feeling much better but complains to have back pain Awaiting cardiology evaluation and possible cardiac cath Review of Systems Review of Systems: All systems reviewed and are unremarkable except as noted below Physical Exam Physical Exam: Lying in bed without any acute distress Constitutional: well developed, well nourished, + ill appearing and average body habitus Eyes: PERRL, conjunctivae normal, anicteric sclerae ENMT: external ear and nose normal, oropharynx normal Neck: trachea midline, no thyromegaly Respiratory: no respiratory distress Auscultation: lungs clear to auscultation bilaterally Cardiovascular: Rate/Rhythm: regular rate and regular rhythm; not tachycardic Heart Sounds: normal S1, normal S2 and + murmur (2/6 ESM over precordium) Extremities: no edema Gastrointestinal (Abdomen): Inspection/Auscultation: normal bowel sounds; abdomen not distended Percussion/Palpation: abdomen soft; abdomen nontender Musculoskeletal: Has chronic back pain with radiculopathy but no acute arthritis Neurologic: normal touch/pain/proprioception and moves all extremities; no focal motor deficits Psychiatric: A+Ox3, euthymic affect Lymphatic: no cervical or axillary lymphadenopathy Results & Data Results & Data Vital Signs (Past 12 Hours) Vital Signs Temp Pulse Pulse Resp BP Pulse Ox O2 Del Method 07/20/25 11:33 36.3 C L 62 19 126/60 96 Room Air 07/20/25 07:54 36.6 C 49 L 20 156/75 H 95 Room Air 07/20/25 07:34 41 L 07/20/25 02:30 36.5 C 49 L 18 134/71 96 Room Air Laboratory Results Short CBC 07/19/25 07/19/25 07/20/25 Range/Units 12:35 21:21 02:27 WBC 13.64 H 10.76 9.09 (4.8-10.8) K/ul Hgb 12.0 L 11.6 L 11.2 L (14.0-18.0) g/dl Hct 35.7 L 34.7 L 33.2 L (42.0-52.0) % Plt Count 341 303 279 (130-400) K/uL BMP 07/19/25 07/20/25 12:35 02:27 Sodium 135 L 137 Potassium 4.7 4.5 Chloride 101 106 Carbon Dioxide 25 25 BUN 35 H 31 H Creatinine 1.11 1.15 Glucose 144 H 115 H Calcium 9.2 8.7 Liver Function 07/19/25 Range/Units 12:35 Total Bilirubin 0.3 (0.2-1.0) mg/dl Direct Bilirubin 0.1 (0-0.2) mg/dl AST 15 (13-39) U/L ALT 12 (7-52) U/L Alkaline Phosphatase 93 (34-104) U/L Albumin 4.3 (3.4-5.0) gm/dl Urine 07/19/25 Range/Units Unknown Urine Color Yellow Urine Appearance Clear (Clear) Urine pH 5.0 (4.5-7.5) Ur Specific Holmes 1.021 (1.000-1.030) Urine Protein Negative (Negative) Urine Glucose (UA) Negative (Negative) Medications Administered Current Inpatient Medications Acetaminophen (Acetaminophen 325 Mg Tab) 650 mg PO Q4H PRN PRN Reason: mild-mod (1-6) Pain or Fever Stop: 08/18/25 18:24 Hydrocodone Bitart/Acetaminophen (Hydrocodone/Acetaminophen 10/325 Tab) 1 tab PO Q6H PRN PRN Reason: Severe Pain (Scale Score 7-10) Stop: 08/03/25 09:25 Aspirin (Aspirin 81 Mg Ectab) 81 mg PO DAILY [facility] Stop: 08/19/25 08:59 Last Admin: 07/20/25 08:14 Dose: 81 mg Clopidogrel Bisulfate (Clopidogrel Bisulfate 75 Mg Tab) [facility] Stop: 08/19/25 08:59 Last Admin: 07/20/25 08:14 Dose: 75 mg Cyanocobalamin (Cyanocobalamin (B-12) 100 Mcg Tablet) 100 mcg PO DAILY [facility] Stop: 08/19/25 08:59 Last Admin: 07/20/25 08:17 Dose: 100 mcg Dextrose (Dextrose 50% 50 Ml Syringe) 25 - 50 ml IV UD PRN; Protocol PRN Reason: Hypoglycemia Protocol Stop: 08/18/25 18:24 Ezetimibe (Ezetimibe 10 Mg Tab) 10 mg PO DAILY [facility] Stop: 08/19/25 08:59 Last Admin: 07/20/25 08:14 Dose: 10 mg Finasteride (Finasteride 5 Mg Tab) 5 mg PO DAILY [facility] Stop: 08/19/25 08:59 Last Admin: 07/20/25 08:15 Dose: 5 mg Gabapentin (Gabapentin 600 Mg Tab) 600 mg PO BID@0800,2100 [facility] Stop: 08/18/25 20:59 Last Admin: 07/20/25 08:16 Dose: 600 mg Gabapentin (Gabapentin 300 Mg Cap) 900 mg PO DAILY@1400 [facility] Stop: 08/19/25 13:59 Glucagon (Glucagon For Inj 1 Mg Vial) 1 mg SQ UD PRN; Protocol PRN Reason: Hypoglycemia Protocol Stop: 08/18/25 18:24 Glucose (Glucose 40% Gel 15 Gm Tube) 15 - 30 gm PO UD PRN; Protocol PRN Reason: Hypoglycemia Protocol Stop: 08/18/25 18:24 Glucose (Glucose 10 Tab/Tube) 4 - 8 tab PO UD PRN; Protocol PRN Reason: Hypoglycemia Protocol Stop: 08/18/25 18:24 Heparin Sodium/Dextrose (Heparin 59932 Unit/500 Ml D5w) 25,000 units in 500 mls @ 24 mls/hr IV .[id number] [facility]; Protocol Stop: 08/18/25 21:14 Last Titration: 07/20/25 11:04 Dose: 1,200 units/hr, 24 mls/hr Insulin Aspart (Insulin Aspart Per Unit Charge) 0 units SC Q6 [facility] Stop: 08/19/25 00:29 Last Admin: 07/20/25 12:22 Dose: Not Given Lisinopril (Lisinopril 5 Mg Tab) 5 mg PO QAM [facility] Stop: 08/19/25 08:59 Last Admin: 07/20/25 08:15 Dose: 5 mg Miscellaneous (Carbohydrates For Hypoglycemia ) 15 - 30 gm PO UD PRN PRN Reason: Hypoglycemia Protocol Stop: 08/18/25 18:24 Multivitamins (Multivitamin Tab) 1 tab PO DAILY [facility] Stop: 08/19/25 08:59 Last Admin: 07/20/25 08:16 Dose: 1 tab Nitroglycerin (Nitroglycerin Sl 0.4 Mg/Tab Tab) 0.4 mg SL Q5M PRN PRN Reason: Chest Pain Stop: 08/18/25 18:24 Ondansetron HCl (Ondansetron Inj 2 Mg/Ml 2 Ml Vial) 4 mg IV Q6H PRN PRN Reason: Nausea Stop: 08/18/25 18:24 Pantoprazole Sodium (Pantoprazole 40 Mg Tab) 40 mg PO DAILY [facility] Stop: 08/19/25 08:59 Last Admin: 07/20/25 08:16 Dose: 40 mg Polyethylene Glycol (Polyethylene (Miralax) 17 Gm Pack) 17 gm PO DAILY PRN PRN Reason: Constipation Stop: 08/18/25 18:24 194712/03/2019 Chief people okay so no
[2025-07-20] MEDS: GABAPENTIN 300 MG CAP PO SCH (13:51)
--- NOTE | 2025-07-20 16:22 | Pre Anesthesia Assessment ---
Date of Service July 20, 2025 Pre Sedation Assessment Vital Signs Temp Pulse Pulse Resp BP Pulse Ox Pulse Ox 07/20/25 15:29 51 L 07/20/25 11:33 97.3 F L 62 19 126/60 96 07/20/25 07:54 97.9 F 49 L 20 156/75 H 95 07/20/25 07:34 41 L 07/20/25 02:30 97.7 F 49 L 18 134/71 96 07/19/25 23:02 98.4 F 51 L 18 111/61 94 07/19/25 22:47 50 L 07/19/25 19:31 97.9 F 61 18 102/69 95 07/19/25 18:28 97.9 F 87 21 132/75 94 07/19/25 18:25 97 07/19/25 18:07 97.7 F 55 L 16 129/65 96 07/19/25 17:24 124/61 07/19/25 17:00 57 L 19 95 O2 Del Method O2 Del Method 07/20/25 15:29 07/20/25 11:33 Room Air 07/20/25 07:54 Room Air 07/20/25 07:34 07/20/25 02:30 Room Air 07/19/25 23:02 Room Air 07/19/25 22:47 07/19/25 19:31 Room Air 07/19/25 18:28 Room Air 07/19/25 18:25 Room Air 07/19/25 18:07 Room Air 07/19/25 17:24 07/19/25 17:00 Room Air Cardiovascular + regular rate Respiratory + respiratory effort normal Pre-Sedation Airway Assessment Smoking Status: Never smoker Hx Sleep Apnea: No Hx Difficult Intubation: No Thyromental Distance: < 3.5 Finger Breadths Oral Cavity: + Dental Abnormalities Mallampati Class: II ASA: ASA3 Procedure Planning Contraindications for Sedation: none Current Medications Reviewed: Yes Notes The planned sedation has been discussed with the patient. Informed Consent was obtained. I have identified the patient, determined the appropriateness of sedation and have assessed the patient immediately prior to the procedure. All medicine(s) and interventions are by my order.
--- NOTE | 2025-07-20 17:21 | Post Anesthesia Assessment ---
Date of Service July 20, 2025 Post Sedation Assessment Vital Signs Temp Pulse Pulse Resp BP Pulse Ox Pulse Ox 07/20/25 15:29 51 L 07/20/25 11:33 97.3 F L 62 19 126/60 96 07/20/25 07:54 97.9 F 49 L 20 156/75 H 95 07/20/25 07:34 41 L 07/20/25 02:30 97.7 F 49 L 18 134/71 96 07/19/25 23:02 98.4 F 51 L 18 111/61 94 07/19/25 22:47 50 L 07/19/25 19:31 97.9 F 61 18 102/69 95 07/19/25 18:28 97.9 F 87 21 132/75 94 07/19/25 18:25 97 07/19/25 18:07 97.7 F 55 L 16 129/65 96 07/19/25 17:24 124/61 O2 Del Method O2 Del Method 07/20/25 15:29 07/20/25 11:33 Room Air 07/20/25 07:54 Room Air 07/20/25 07:34 07/20/25 02:30 Room Air 07/19/25 23:02 Room Air 07/19/25 22:47 07/19/25 19:31 Room Air 07/19/25 18:28 Room Air 07/19/25 18:25 Room Air 07/19/25 18:07 Room Air 07/19/25 17:24 Recovery Score Activity: Moves 4 extremities Respiration: Deep Breath/Cough Circulation: +/-20% PreAnes Value Consciousness: Fully Awake Oxygen Saturation: O2 needed for >90% Discharge Sedation Level of Care: Fast Track Phase II
[2025-07-20] MEDS: niCARdipine 2,000 MCG/20 ML SYR ONE ×2 (17:27→17:28)
[2025-07-20] MEDS: NITROGLYCERIN/D5W 100MCG/ML 20ML SYR ONE ×2 (17:27→17:28)
[2025-07-20] MEDS: MIDAZOLAM HCL 1 MG/ML 2ML VIAL ONE ×2 (17:27→17:28)
[2025-07-20] MEDS: OPTIRAY 350 ONE ×2 (17:27→17:28)
[2025-07-20] MEDS: HEPARIN (PORCINE) 1000 UNIT/ML 10 ML (CATH LAB USE ONLY) ONE (17:28)
[2025-07-20 18:36] LABS: ANTI-Xa, UFH(UnfractionatedHep 0.16 IU/ml (0.3-0.7)
[2025-07-20] MEDS ORDERED: Nursing to Pharmacy Communication SCH (18:45)
[2025-07-20] MEDS: HEPARIN SOD (PORCINE) 1000 UNIT/ML IV ONE (19:17)
--- NOTE | 2025-07-20 22:46 | Cardiac Catheterization ---
[facility] Data: [employer] Cardiac Status Clinical evaluation leading to the procedure CAD Presenation: Non STEMI Anginal Classification: CCS IV Diagnostic Physicians Name: Marino Amador MD Closure Device Recommendations: PCI without planned CABG Cardiac Cath Procedure Full Procedure Date July 20, 2025 Pre-Procedure Diagnosis Pre-Procedure Diagnosis: Non STEMI AUC Score AUC Score: 7 Post-Procedure Diagnosis Post-Procedure Diagnosis: Severe CAD Procedure(s) Performed Procedure(s) Performed: Coronary Angiography and Ultrasound Guided Vascular Access Wire Dropper Marino Amador MD Cardiology Specialist(s) Raza Estimated Blood Loss Estimated Blood Loss: 10 Medication(s) Medication(s): Fentanyl, Heparin, Lidocaine 1%, Nicardipine, Nitroglycerin and Versed Summary of Findings Indication: Accelerating angina, history of CAD Access: 6 Fr right radial artery under ultrasound guidance Catheters: [place] Findings: LM -normal caliber, 20% ostial stenosis. LAD -medium caliber vessel, 95% calcified mid LAD stenosis after takeoff of D1. Earlydistal subtotal occlusion. Apical partially fills via left to left collaterals and faint right to left collaterals. Small D1 90% proximal stenosis Circumflex -medium caliber, 8090% calcified ostial/proximal stenosis involving takeoff of high OM1, 6070% distal stenosis. Small high OM1 without disease. Medium caliber OM 2 40% mid segment disease RCA -dominant, medium caliber, proximal to mid stent widely patent, mid segment ectatic with 30% stenosis after takeoff of marginal, distal stent widely patent. 50-60% stenosis at bifurcation of RPDA and right posterior AV branch Arterial Closure: TR band Summary: 1. Severe multivessel coronary artery disease 80-90% proximal circumflex 95% calcified mid LAD. Subtotal distal LAD occlusion with collaterals to apical vessel. - Widely patent proximal and distal RCA stents. 50-60% distal RCA stenosis at bifurcation with PDA/RPAV Recommendations: Plan on PCI of mid LAD and ostial/proximal circumflex tomorrow Resume heparin infusion after TR band removed Hemodynamics Rest Ao:: 125/64/87 Final Ao: 133/50/88 LV: -- Recommendations Recommendations: PCI without planned CABG Specimens Specimens: None Radiation Exposure (mGy) 603 Contrast (mls) 40 Anesthesia Moderate [id number] Procedural Complication(s) None Disposition PCU I attest to the content of the Intraoperative Record and any orders documented therein. Any exceptions are noted below. [facility] Card Cath Procedure Codes Cardiac Catheterization Procedure 1: Cardiovascular Cath Procedures: 11853 Coronaries Therapeutic Services & Ancillary Procedure 1: Cardiovascular Tx and Anc Procedures: 13092 Ultrasonic Guidance Vascular Access Moderate Sedation Procedure 1: Sedation/Anesthesia: 14969 Mod Sedation by the same physician;Init15 Min Child Age 5 & Up PG Care Time/CCT Total # of Minutes Spent Total Time Spent with Patient: Total time spent is greater than 50% in coordination of care (as documented) at patient's floor/unit and/or counseling patient:
[2025-07-21] MEDS: INSULIN ASPART PER UNIT CHARGE SC SCH ×2 (00:35→16:53)
[2025-07-21 01:27] LABS: ANTI-Xa, UFH(UnfractionatedHep 0.78 IU/ml (0.3-0.7)
[2025-07-21 07:53] LABS: ANTI-Xa, UFH(UnfractionatedHep 0.83 IU/ml (0.3-0.7)
[2025-07-21] MEDS: ONDANSETRON INJ 2 MG/ML 2 ML VIAL IV PRN (09:09)
--- NOTE | 2025-07-21 10:44 | Cardiology Progress Note ---
Date of Service July 21, 2025 Assessment & Plan (1) Unstable angina: (2) Chest pain: (3) CAD (coronary artery disease): (4) Elevated troponin: (5) Aortic stenosis: (6) Hypertension: (7) Dyslipidemia: Plan Assessment: 84 year old male with known history of significant coronary artery disease with prior PCI presents with angina symptoms relived with SL NTG. EKG with no acute ST-T wave changes. Troponin elevation with peak of 58.2. Prior intolerance to long-acting nitrates with no improvement in symptoms. Cardiology consulted for further assessment and recommendations. Plan: 1. Unstable angina 2. Chest pain 3. CAD 4. Elevated Troponin -patient with prior history of NSTEMI and complex coronary disease presents with 6 months of progressively worsening exertional angina requiring SL NTG. -Troponin elevation with peak at 58.2. -Patient currently NPO with plan to undergo cardiac catheterization for further evaluation. -Echocardiogram shows preserved LVEF 55-60%, moderate LVH, minimal hypokinesis of the apex otherwise normal wall motion. Mild aortic stenosis, trivial aortic insufficiency and trace tricuspid regurgitation. RVSP 30-40mmHg - No acute events overnight. Avoid AV stewart blocking agents due to resting br adycardia -goals of care with regards to complex coronary disease reinforced with patient -Continue Lisinopril, ASA 81mg, Plavix, and zetia. Not on beta milagro therapy s/t bradycardia 5. Aortic Stenosis -Mild aortic valve stenosis per echo 07/20/25 -Patient is euvolemic on exam 6. HTN -BP at target -Continue Lisinopril at this time 7. Dyslipidemia -Reports intolerance to statin therapies, currently on Zetia -Review of OP labs shows LDL 94 (05/10/25) -Strong candidate for consideration of Repatha. Can be discussed outpatient. Case has been discussed with Dr. Pacheco. Further recommendations regarding plan of care as per his assessment. RANDAL Ricci [facility] Admission and Anticipated Discharge Date Admission Date: July 19, 2025 Supervising Physician Co-Signing Physician Notes Patient was seen and personally examined. Chart, telemetry reviewed. Full assessment and plan as outlined by advanced provider as above. Care and management discussed and personally endorsed. 84-year-old with non-ST segment elevation myocardial infarction, crescendo angina in the setting of known significant multivessel coronary disease. Cardiac catheterization yesterday with culprit lesions identified Anticipated procedure later today for complex PCI for symptom relief Subjective 07/21/2025: Patient seen and examined in follow up today. Feeling fair. he offers no acute cardiac complaints at this time. Is anxious to go to the central lab technician. Labs, vitals, diagnostics, telemetry and documentation reviewed. Telemetry reviewed showing Sinus rhythm rates 70's. Bradycardic overnight rates 40's. occasional PaC's noted. NPO in preparation for today's procedure Review of Systems Review of Systems: All systems reviewed & are unremarkable except as noted in HPI & below Physical Exam Constitutional: well developed and well nourished; no acute distress Neck: normal visual inspection and trachea midline Respiratory: normal respiratory effort, lungs clear to auscultation Cardiovascular: Rate/Rhythm: regular rhythm and + bradycardic Heart Sounds: normal S1 and + murmur (+2/6 systolic murmur) Extremities: no edema Skin: no rashes, warm and dry Psychiatric: A+Ox3, euthymic affect Results & Data Vital Signs (Past 12 Hours) Vital Signs Temp Pulse Pulse Resp BP Pulse Ox O2 Del Method 07/21/25 03:26 36.6 C 46 L 16 126/68 94 Room Air 07/21/25 00:34 36.6 C 57 L 18 153/77 H 96 Room Air 07/20/25 23:00 50 L Laboratory Results Intake and Output 07/20/25 07/21/25 07/21/25 22:59 06:59 14:59 Intake Total 144.55 / 832.95 518.75 / 832.95 170.733 / 170.733 Balance 144.55 / 832.95 518.75 / 832.95 170.733 / 170.733 Intake: IV 144.55 / 482.95 168.75 / 482.95 170.733 / 170.733 Heparin 58989 Unit/500 ml D5w 144.55 / 482.95 168.75 / 482.95 170.733 / 17 0.733 25,000 units In 500 ml @ 1,300 UNITS/HR 26 mls/hr IV .[id number] LEVAR Rx#:[id number] Oral 350 / 350 Other: Other Intake Source NPO # Unmeasured Voids 2 Weight 74.4 kg Weight Measurement Method Built in [facility] PG Care Time/CCT Total # of Minutes Spent Total Time Spent with Patient: Total time spent is greater than 50% in coordination of care (as documented) at patient's floor/unit and/or counseling patient: Coding Level of Care Code 02774 SUB INP/OBS CARE 3/50MIN Diagnoses Unstable angina I20.0 Chest pain R07.9 CAD (coronary artery disease) I25.10 Associated angina: unspecified whether angina present Coronary Disease-Associated Artery/Lesion type: unspecified vessel or lesion type [place] vs. transplanted heart: [place] heart Elevated troponin R79.89 Aortic stenosis I35.0 Hypertension I10 Dyslipidemia E78.5 Time Spent (min) 50 (3) CAD (coronary artery disease) Associated angina: unspecified whether angina present Coronary Disease- Associated Artery/Lesion type: unspecified vessel or lesion type [place] vs. transplanted heart: [place] heart Qualified Code(s): I25.10 - Atherosclerotic heart disease of [place] coronary artery without angina pectoris
--- NOTE | 2025-07-21 11:59 | Pre Anesthesia Assessment ---
Date of Service July 21, 2025 Pre Sedation Assessment Vital Signs Temp Pulse Pulse Resp BP Pulse Ox Pulse Ox 07/21/25 11:54 51 L 18 115/60 95 07/21/25 11:37 98.1 F 50 L 18 122/72 95 07/21/25 03:26 97.9 F 46 L 16 126/68 94 07/21/25 00:34 97.9 F 57 L 18 153/77 H 96 07/20/25 23:00 50 L 07/20/25 19:41 97.7 F 59 L 21 109/54 L 96 07/20/25 18:25 93 07/20/25 15:29 51 L O2 Del Method O2 Del Method 07/21/25 11:54 Room Air 07/21/25 11:37 Room Air 07/21/25 03:26 Room Air 07/21/25 00:34 Room Air 07/20/25 23:00 07/20/25 19:41 Room Air 07/20/25 18:25 Room Air 07/20/25 15:29 Cardiovascular + regular rate Respiratory + respiratory effort normal Pre-Sedation Airway Assessment Smoking Status: Never smoker Hx Sleep Apnea: No Hx Difficult Intubation: No Short, Thick Neck: No Thyromental Distance: < 3.5 Finger Breadths Oral Cavity: + Dental Abnormalities Mallampati Class: II ASA: ASA3 NPO Status Date of Last Intake of Fluids: 07/20/25 Time of Last Intake of Fluids: 23:00 Date of Last Intake of Solid Food: 07/20/25 Time of Last Intake of Solid Foods: 23:00 Procedure Planning Contraindications for Sedation: none Current Medications Reviewed: Yes Notes The planned sedation has been discussed with the patient. Informed Consent was obtained. I have identified the patient, determined the appropriateness of sedation and have assessed the patient immediately prior to the procedure. All medicine(s) and interventions are by my order.
--- NOTE | 2025-07-21 12:44 | Electrocardiogram Report ---
Test Reason : Blood Pressure : */* mmHG Vent. Rate : 53 BPM Atrial Rate : 53 BPM P-R Int : 194 ms QRS Dur : 90 ms QT Int : 410 ms P-R-T Axes : 67 -5 28 degrees QTcB Int : 384 ms Sinus bradycardia with occasional Premature atrial complexes Otherwise normal ECG When compared with ECG of 20-Jul-2025 06:38, No significant change Confirmed by Angel Kirby ([id number]) on 07/21/2025 12:44:27 PM Referred By: REFERRED SELF Confirmed By: Angel Kirby
[2025-07-21] MEDS: MIDAZOLAM HCL 1 MG/ML 2ML VIAL ONE ×2 (13:59→14:00)
[2025-07-21] MEDS: HEPARIN (PORCINE) 1000 UNIT/ML 10 ML (CATH LAB USE ONLY) ONE ×2 (13:59→14:01)
[2025-07-21] MEDS: OPTIRAY 350 ONE (14:00)
[2025-07-21] MEDS: NITROGLYCERIN/D5W 100MCG/ML 20ML SYR ONE (14:00)
[2025-07-21] MEDS: niCARdipine 2,000 MCG/20 ML SYR ONE (14:00)
[2025-07-21] MEDS: CLOPIDOGREL BISULFATE 300 MG TAB ONE (14:01)
--- NOTE | 2025-07-21 14:36 | Hospitalist Progress Note ---
Date of Service July 21, 2025 Assessment & Plan (1) Exertional chest pain: (2) S/P coronary artery stent placement: (3) Elevated troponin: (4) Aortic stenosis: (5) Hypertension: (6) Type 2 diabetes mellitus: (7) Dyslipidemia: (8) Interstitial lung disease: (9) Barretts esophagus: (10) Chronic back pain: Plan 84 year old male with PMH significant for dyslipidemia, type 2 diabetes, interstitial lung disease, ACE, hypertension, atherosclerosis of aorta, CAD, Celiac disease, Nash's esophagus, BPH, lumbar DDD, and chronic back pain who presents to the ED on 07/19/2025 with chest pain. Exertional chest pain Elevated troponin Patient presenting with two episodes of exertional chest pain with SOB requiring x2 doses of nitro at home Likely stable angina in setting of chronic exertional chest pain with SOB typically relieved by rest and rare nitro use Currently pain free EKG unremarkable Initial troponin 28 with repeat 44 with with elevation to elevation to 58.2 and then improved to 52.1 Appreciate cardiology input and possible cardiac cath today or tomorrow Will continue current medications including IV heparin Status post cardiac cathshowed severe multivessel CAD with 80 to 95% proximal circumflex blockage and 95% calcified mid LAD and subtotal distal LAD occlusion with collaterals to the apical vessels. Widely patent proximal and distal RCA stents. 50 to 60% distal RCA stenosis at bifurcation with PDA/RPAV Plan on PCI of mid LAD and ostial/proximal circumflex today Severe multivessel CAD s/p stent x2 (2023) s/p cardiac cath in December [address] Amador revealing severe multivessel CAD (70% proximal to mid RCA, 95% distal RCA, 80% proximal circumflex, 70% distal circumflex, 80-90% calcified mid LAD, subtotal distal LAD occlusion with collaterals to apical vessel) with PCI of RCA with x2 HECTOR Following with [facility] last seen November 2024 Continue baby aspirin and Plavix Intolerant of Imdur and Ranexa Update LOLI - last in November 2023 revealed EF 65-70%, mild LVH, mild aortic s tenosis with trace regurg, mild MR Cardiac cath as above with recommendation Hypertension Continue lisinopril Type 2 diabetes Hold home metformin BSG ACHS and SSI while inpatient Dyslipidemia Takes Zetia and red yeast rice Does not tolerate statins Continue Zetia Nash's esophagus Continue pantoprazole BPH Continue finasteride Chronic back pain s/p multiple back surgeries, spinal stimulator, nerve ablations Takes hydrocodone-tylenol and gabapentin for chronic back pain Continue gabapentin ACE Not on CPAP DVT Prophylaxis: SCDs for now Code Status: DNR/DNI - As per discussion at bedside with the patient. PCP: Manav De La Vega Disposition: admit to tele Admission and Anticipated Discharge Date Admission Date: July 19, 2025 Subjective 07/21/2025 The patient was seen and examined in telemetry unit He has had cardiac cath yesterday and showed significant CAD and he will have stent placement today Denies any symptoms at rest Review of Systems Review of Systems: All systems reviewed and are unremarkable except as noted below Physical Exam Physical Exam: Lying in bed without any acute distress Constitutional: well developed, well nourished, + ill appearing and average body habitus Eyes: PERRL, conjunctivae normal, anicteric sclerae ENMT: external ear and nose normal, oropharynx normal Neck: trachea midline, no thyromegaly Respiratory: no respiratory distress Auscultation: lungs clear to auscultation bilaterally Cardiovascular: Rate/Rhythm: regular rate and regular rhythm; not tachycardic Heart Sounds: normal S1, normal S2 and + murmur (2/6 ESM over precordium) E xtremities: no edema Gastrointestinal (Abdomen): Inspection/Auscultation: normal bowel sounds; abdomen not distended Percussion/Palpation: abdomen soft; abdomen nontender Musculoskeletal: No acute arthritis involving any of the joint Neurologic: normal touch/pain/proprioception and moves all extremities; no focal motor deficits Psychiatric: A+Ox3, euthymic affect Lymphatic: no cervical or axillary lymphadenopathy Results & Data Results & Data Vital Signs (Past 12 Hours) Vital Signs Temp Pulse Resp BP BP Pulse Ox O2 Del Method 07/21/25 14:15 53 L 16 129/68 92 Room Air 07/21/25 11:54 51 L 18 115/60 95 Room Air 07/21/25 11:37 36.7 C 50 L 18 122/72 95 Room Air 07/21/25 03:26 36.6 C 46 L 16 126/68 94 Room Air Medications Administered Current Inpatient Medications Acetaminophen (Acetaminophen 325 Mg Tab) 650 mg PO Q4H PRN PRN Reason: mild-mod (1-6) Pain or Fever Stop: 08/18/25 18:24 Hydrocodone Bitart/Acetaminophen (Hydrocodone/Acetaminophen 10/325 Tab) 1 tab PO Q6H PRN PRN Reason: Severe Pain (Scale Score 7-10) Stop: 08/03/25 09:25 Last Admin: 07/21/25 10:38 Dose: 1 tab Aspirin (Aspirin 81 Mg Ectab) 81 mg PO DAILY LEVAR Stop: 08/19/25 08:59 Last Admin: 07/21/25 08:14 Dose: 81 mg Clopidogrel Bisulfate (Clopidogrel Bisulfate 75 Mg Tab) 75 mg PO QAM [facility] Stop: 08/19/25 08:59 Last Admin: 07/21/25 08:15 Dose: 75 mg Cyanocobalamin (Cyanocobalamin (B-12) 100 Mcg Tablet) 100 mcg PO DAILY LEVAR Stop: 08/19/25 08:59 Last Admin: 07/21/25 08:15 Dose: 100 mcg Dextrose (Dextrose 50% 50 Ml Syringe) 25 - 50 ml IV UD PRN; Protocol PRN Reason: Hypoglycemia Protocol Stop: 08/18/25 18:24 Ezetimibe (Ezetimibe 10 Mg Tab) 10 mg PO DAILY [facility] Stop: 08/19/25 08:59 Last Admin: 07/21/25 08:15 Dose: 10 mg Finasteride (Finasteride 5 Mg Tab) 5 mg PO DAILY [facility] Stop: 08/19/25 08:59 Last Admin: 07/21/25 08:15 Dose: 5 mg Gabapentin (Gabapentin 600 Mg Tab) 600 mg PO BID@0800,2100 [facility] Stop: 08/18/25 20:59 Last Admin: 07/21/25 08:14 Dose: 600 mg Gabapentin (Gabapentin 300 Mg Cap) 900 mg PO DAILY@1400 [facility] Stop: 08/19/25 13:59 Last Admin: 07/20/25 13:51 Dose: 900 mg Glucagon (Glucagon For Inj 1 Mg Vial) 1 mg SQ UD PRN; Protocol PRN Reason: Hypoglycemia Protocol Stop: 08/18/25 18:24 Glucose (Glucose 40% Gel 15 Gm Tube) 15 - 30 gm PO UD PRN; Protocol PRN Reason: Hypoglycemia Protocol Stop: 08/18/25 18:24 Glucose (Glucose 10 Tab/Tube) 4 - 8 tab PO UD PRN; Protocol PRN Reason: Hypoglycemia Protocol Stop: 08/18/25 18:24 Heparin Sodium/Dextrose (Heparin 84533 Unit/500 Ml D5w) 25,000 units in 500 mls @ 23 mls/hr IV .[id number] [facility]; Protocol Stop: 08/18/25 21:14 Last Titration: 07/21/25 09:07 Dose: 1,150 units/hr, 23 mls/hr Insulin Aspart (Insulin Aspart Per Unit Charge) 0 units SC Q6 [facility] Stop: 08/20/25 00:00 Last Admin: 07/21/25 12:09 Dose: Not Given Lisinopril (Lisinopril 5 Mg Tab) 5 mg PO QAM [facility] Stop: 08/19/25 08:59 Last Admin: 07/21/25 08:15 Dose: 5 mg Miscellaneous (Carbohydrates For Hypoglycemia ) 15 - 30 gm PO UD PRN PRN Reason: Hypoglycemia Protocol Stop: 08/18/25 18:24 Multivitamins (Multivitamin Tab) 1 tab PO DAILY [facility] Stop: 08/19/25 08:59 Last Admin: 07/21/25 08:15 Dose: 1 tab Nitroglycerin (Nitroglycerin Sl 0.4 Mg/Tab Tab) 0.4 mg SL Q5M PRN PRN Reason: Chest Pain Stop: 08/18/25 18:24 Ondansetron HCl (Ondansetron Inj 2 Mg/Ml 2 Ml Vial) 4 mg IV Q6H PRN PRN Reason: Nausea Stop: 08/18/25 18:24 Last Admin: 07/21/25 09:09 Dose: 4 mg Pantoprazole Sodium (Pantoprazole 40 Mg Tab) 40 mg PO DAILY [facility] Stop: 08/19/25 08:59 Last Admin: 07/21/25 08:14 Dose: 40 mg Polyethylene Glycol (Polyethylene (Miralax) 17 Gm Pack) 17 gm PO DAILY PRN PRN Reason: Constipation Stop: 08/18/25 18:24
--- NOTE | 2025-07-21 15:21 | Post Anesthesia Assessment ---
Date of Service July 21, 2025 Post Sedation Assessment Vital Signs Temp Pulse Pulse Resp BP BP Pulse Ox 07/21/25 15:17 96.3 F L 47 L 14 100/57 L 95 07/21/25 15:01 97.7 F 45 L 14 111/65 95 07/21/25 14:30 55 L 16 114/71 95 07/21/25 14:15 53 L 16 129/68 92 07/21/25 11:54 51 L 18 115/60 95 07/21/25 11:37 98.1 F 50 L 18 122/72 95 07/21/25 03:26 97.9 F 46 L 16 126/68 94 07/21/25 00:34 97.9 F 57 L 18 153/77 H 96 07/20/25 23:00 50 L 07/20/25 19:41 97.7 F 59 L 21 109/54 L 96 07/20/25 18:25 07/20/25 15:29 51 L Pulse Ox O2 Del Method O2 Del Method 07/21/25 15:17 Room Air 07/21/25 15:01 Room Air 07/21/25 14:30 Room Air 07/21/25 14:15 Room Air 07/21/25 11:54 Room Air 07/21/25 11:37 Room Air 07/21/25 03:26 Room Air 07/21/25 00:34 Room Air 07/20/25 23:00 07/20/25 19:41 Room Air 07/20/25 18:25 93 Room Air 07/20/25 15:29 Recovery Score Activity: Moves 4 extremities Respiration: Deep Breath/Cough Circulation: +/-20% PreAnes Value Consciousness: Fully Awake Oxygen Saturation: > 92% On Room Air Post Anesthesia Score: 10 Discharge Sedation Level of Care: Fast Track Phase II
[2025-07-21 17:34] LABS: ANTI-Xa, UFH(UnfractionatedHep > 1.50 IU/ml (0.3-0.7)
--- NOTE | 2025-07-21 18:36 | Cardiac Catheterization ---
[facility] Data: Flight Radio Officer Cardiac Status Clinical evaluation leading to the procedure CAD Presenation: Non STEMI Diagnostic Physicians Name: Marino Amador MD Closure Device Recommendations: PCI without planned CABG Cardiac Cath Procedure Full Procedure Date July 21, 2025 Pre-Procedure Diagnosis Pre-Procedure Diagnosis: Non STEMI AUC Score AUC Score: 7 Post-Procedure Diagnosis Post-Procedure Diagnosis: Severe CAD, Successful PCI and Normal Intracardiac Pressures Procedure(s) Performed Procedure(s) Performed: Coronary Angiography, Left Heart Cath, PTCA, Drug Eluting Stent and Ultrasound Guided Vascular Access Bone Char Kiln Operator Marino Amador MD Drug Clerk(s) [place] Estimated Blood Loss Estimated Blood Loss: 10 Medication(s) Medication(s): Fentanyl, Heparin, Lidocaine 1%, Nicardipine, Nitroglycerin and Versed Summary of Findings Indication: Accelerating angina, history of CAD Access: 6 Fr right radial artery under ultrasound guidance Catheters: EBU 3.5 guide Findings: LM -normal caliber, 20% ostial stenosis. LAD -medium caliber vessel, 98% calcified mid LAD stenosis after takeoff of D1. Earlydistal subtotal occlusion. Apical partially fills via left to left collaterals. Small D1 90% proximal stenosis Circumflex -medium caliber, 8090% calcified ostial/proximal stenosis involving takeoff of high OM1, 6070% distal stenosis. Small high OM1 without disease. Medium caliber OM2 40% mid segment disease -- PCI -- Antithrombotic therapy: Heparin, clopidogrel Procedure: Left main cannulated with EBU 3.5 guide Pre-procedure flow ARIANA 3 of LAD Packing Floor Worker 50 wire passed across lesion into distal LAD GuideLiner placed to proximal LAD Angioplasty to mid LAD just after takeoff of D1 with 2.0, 1.5 and 1.25 balloons Despite inflations to high atmospheres unable to pass balloon catheters across severe calcified stenosis. Post attempted inflations ARIANA-3 flow with no evidence of dissection Decision made to abort attempts at intervention LAD. Packing Floor Worker 50 wire removed from LAD and redirected into circumflex across proximal stenosis and into distal OM Proximal circumflex predilated with 2.5 balloon Proximal circumflex further dilated with 3.0 intravascular lithotripsy shockwave balloon (40 pulses) Prowater wire placed into LAD 3.0 x 15 mm Xience drug-eluting stent placed to circumflex ostium/proximal segment Stent post-dilated with 3.5 noncompliant balloon IC vasodilators administered for spasm Post procedure ARIANA 3 flow, stent well expanded with minimal residual stenosis. Jailed high OM1 with ostial stenosis but ARIANA-3 flow. No other apparent coronary complications Arterial Closure: TR band Summary: 1. Successful PCI of ostial/proximal circumflex with intravascular lithotripsy and single drug-eluting stent (3.0 x 15 mm Xience; postdilated with 3.5 NC). Possible increase in collateral flow to apical LAD from OM's 2. Unsuccessful attempted PCI of heavily calcified mid LAD due to inability to pass balloon catheters across stenosis 3. Normal LV filling pressures Recommendations: To PCU for continued monitoring Reloaded with clopidogrel 300 mg in Flight Radio Officer Continue dual-antiplatelet therapy for at least 1 year Continue statin, and ASCVD risk factor modification Would attempt to manage mid LAD heavily calcified disease medically in the setting of distal occlusion with apical collaterals. Mid LAD does have a medium size diagonal after severe stenosis. If refractory angina in the future PCI to mid LAD could be considered but likely would require atherectomy at a tertiary center. Hemodynamics Rest Ao:: 88/49/65 Final Ao: 157/11 LV: 151/61/93 Recommendations Recommendations: PCI without planned CABG Specimens Specimens: None Radiation Exposure (mGy) 4143 Contrast (mls) 100 Anesthesia Moderate [id number] Procedural Complication(s) None Disposition PCU I attest to the content of the Intraoperative Record and any orders documented therein. Any exceptions are noted below. [facility] Card Cath Procedure Codes Cardiac Catheterization Procedure 1: Cardiovascular Cath Procedures: 79757 Left Heart Cath (+/-LV) Moderate Sedation Procedure 1: Sedation/Anesthesia: 25067 Mod Sedation by the same physician;Init15 Min Child Age 5 & Up Procedure 2: Sedation/Anesthesia: 27336 Mod Sedation by the same physician; Ea [id number] Minutes Angioplasty Procedure 1: Cardiovascular Angioplasty Procedures: 88546 PTCA; Single mafor coronary artery or branch RC LC LD Procedure 2: Cardiovascular Angioplasty Procedures: 09100 Perq Trluml Coronry Lithotrp Stenting Procedure 1: Cardiovascular Stent Procedures: 26397 Perc transcatheter placement of intracoronary stent(s), with ang PG Care Time/CCT Total # of Minutes Spent Total Time Spent with Patient: Total time spent is greater than 50% in coordination of care (as documented) at patient's floor/unit and/or counseling patient:
[2025-07-22 06:15] LABS: Hematocrit (blood only) 36.1 % (42.0-52.0); Hemoglobin 12.1 g/dl (14.0-18.0); Immature Granulocytes # (auto) 0.02 K/uL (0.01-0.20); Immature Granulocytes % (auto) 0.2 %; Mean Corpuscular Hemoglobin 29.5 pg (25.0-34.0); Mean Corpuscular Volume 88.0 fL (80.0-100.0); Platelet Count 306 K/uL (130-400); RDW Standard Deviation 39.7 fL (36.4-46.3); Red Blood Count 4.10 M/uL (4.70-6.10); White Blood Count 8.08 K/ul (4.8-10.8)
[2025-07-22 06:35] LABS: Anion Gap 9.0 (3-11); Blood Urea Nitrogen 25.0 mg/dl (6-23); Calcium 8.8 mg/dl (8.6-10.3); Carbon Dioxide 22.0 mmol/L (21-32); Chloride 105.0 mmol/L (98-107); Creatinine Clr Calc Pharmacy 49.5 ml/min; Glucose 122.0 mg/dl (70-99(Fasting)); Potassium 4.3 mmol/L (3.5-5.1); Sodium 136.0 mmol/L (136-145)
[2025-07-22 08:05] VITALS: TEMP 97.9
[2025-07-22 09:14] LABS: Magnesium 2.1 mg/dl (1.7-2.4)
--- NOTE | 2025-07-22 10:14 | Cardiology Progress Note ---
Date of Service July 22, 2025 Assessment & Plan (1) Unstable angina: (2) Chest pain: (3) CAD (coronary artery disease): (4) Elevated troponin: (5) Aortic stenosis: (6) Hypertension: (7) Dyslipidemia: Plan Assessment: 84 year old male with known history of significant coronary artery disease with prior PCI presents with angina symptoms relived with SL NTG. EKG with no acute ST-T wave changes. Troponin elevation with peak of 58.2. Prior intolerance to long-acting nitrates with no improvement in symptoms. Cardiology consulted for further assessment and recommendations. Plan: 1. Unstable angina 2. Chest pain 3. CAD 4. Elevated Troponin -patient with prior history of NSTEMI and complex coronary disease presents with 6 months of progressively worsening exertional angina requiring SL NTG. -Troponin elevation with peak at 58.2. -Patient currently NPO with plan to undergo cardiac catheterization for further evaluation. -Echocardiogram shows preserved LVEF 55-60%, moderate LVH, minimal hypokinesis of the apex otherwise normal wall motion. Mild aortic stenosis, trivial aortic insufficiency and trace tricuspid regurgitation. RVSP 30-40mmHg - No acute events overnight. Avoid AV stewart blocking agents due to resting br adycardia -goals of care with regards to complex coronary disease reinforced with patient -Continue Lisinopril, ASA 81mg, Plavix, and zetia. Not on beta milagro therapy s/t bradycardia 5. Aortic Stenosis -Mild aortic valve stenosis per echo 07/20/25 -Patient is euvolemic on exam 6. HTN -BP at target -Continue Lisinopril at this time 7. Dyslipidemia -Reports intolerance to statin therapies, currently on Zetia -Review of OP labs shows LDL 94 (05/10/25) -Strong candidate for consideration of Repatha. Can be discussed outpatient. Case has been discussed with Dr. Pacheco. Further recommendations regarding plan of care as per his assessment. RANDAL Ricci [facility] Cardiology [facility] 07/22/2025 Patient feeling well no signs or angina no discomfort with ambulation. Underwent procedure yesterday for control of anginal symptoms with stent implantation proximal circumflex with good clinical result. Left anterior descending not amenable to initial approach. Plan continued medical therapy and follow Issues addressed as follows 1. Unstable angina, non-ST segment elevation myocardial infarction Status post successful coronary stenting proximal circumflex, angioplasty to the mid left anterior descending (limited by heavy calcification). Clinically improved Plan: Continue dual antiplatelet therapy minimum of 1 year resume prehospital medications Follow-up cardiology 2 to 4 weeks Stable for discharge today Admission and Anticipated Discharge Date Admission Date: July 19, 2025 Subjective Patient was seen and personally examined, chart, medications, telemetry reviewed. No difficulties overnight did not sleep well so ambulated frequently in the hallway with good tolerance. No chest pains or angina, shortness of breath. Mild tenderness at right wrist otherwise no complaints. Telemetry sinus bradycardia sinus arrhythmia, occasional PVCs Review of Systems Review of Systems: All systems reviewed & are unremarkable except as noted in Subjective Physical Exam Constitutional: well developed and well nourished; no acute distress ENMT: external ear and nose normal, oropharynx normal Neck: normal visual inspection and trachea midline Respiratory: normal respiratory effort, lungs clear to auscultation Cardiovascular: Rate/Rhythm: regular rhythm and + bradycardic Heart Sounds: normal S1 and + murmur (+2/6 systolic murmur) Vessels: radial pulses present (Right radial access site bandaged without hematoma) Extremities: no edema Musculoskeletal: no cyanosis or clubbing, extremities motor strength 5/5 Skin: no rashes, warm and dry Psychiatric: A+Ox3, euthymic affect Results & Data Vital Signs (Past 12 Hours) Vital Signs Temp Pulse Pulse Resp BP BP Pulse Ox 07/22/25 09:52 58 L 07/22/25 08:05 36.6 C 57 L 23 93/54 L 93 07/22/25 03:45 36.4 C L 48 L 18 100/61 96 07/21/25 23:47 36.5 C 56 L 16 110/64 95 O2 Del Method 07/22/25 09:52 07/22/25 08:05 Room Air 07/22/25 03:45 Room Air 07/21/25 23:47 Room Air Laboratory Results Laboratory Results - last 24 hr 07/21/25 07/21/25 07/21/25 15:34 15:46 20:17 WBC RBC Hgb Hct MCV MCH MCHC RDW Std Deviation RDW Coeff of Geraldo Plt Count MPV Immature Gran % (Auto) Neut % (Auto) Lymph % (Auto) Moca % (Auto) Eos % (Auto) Baso % (Auto) Neut # (Auto) Lymph # (Auto) Moca # (Auto) Eos # (Auto) Baso # (Auto) Immature Gran # (Auto) Heparin Anti-Xa, Unfract > 1.50 H* Sodium Potassium Chloride Carbon Dioxide Anion Gap BUN Creatinine Est Cr Clr Drug Dosing eGFR BUN/Creatinine Ratio Glucose POC Glucose 99 131 H Calcium Magnesium 07/22/25 07/22/25 05:57 07:29 WBC 8.08 RBC 4.10 L Hgb 12.1 L Hct 36.1 L MCV 88.0 MCH 29.5 MCHC 33.5 RDW Std Deviation 39.7 RDW Coeff of Geraldo 12.3 Plt Count 306 MPV 9.1 L Immature Gran % (Auto) 0.2 Neut % (Auto) 61.1 Lymph % (Auto) 25.5 Moca % (Auto) 9.8 Eos % (Auto) 2.5 Baso % (Auto) 0.9 Neut # (Auto) 4.94 Lymph # (Auto) 2.06 Moca # (Auto) 0.79 H Eos # (Auto) 0.20 Baso # (Auto) 0.07 Immature Gran # (Auto) 0.02 Heparin Anti-Xa, Unfract Sodium 136 Potassium 4.3 Chloride 105 Carbon Dioxide 22 Anion Gap 9 BUN 25 H Creatinine 1.09 Est Cr Clr Drug Dosing 49.5 eGFR 66.51 BUN/Creatinine Ratio 22.9 H Glucose 122 H POC Glucose 115 H Calcium 8.8 Magnesium 2.1 PG Care Time/CCT Total # of Minutes Spent Total Time Spent with Patient: Total time spent is greater than 50% in coordination of care (as documented) at patient's floor/unit and/or counseling patient: Coding Level of Care Code 61204 SUB INP/OBS CARE 3/50MIN Diagnoses Unstable angina I20.0 Chest pain R07.9 CAD (coronary artery disease) I25.10 Associated angina: unspecified whether angina present Coronary Disease-Associated Artery/Lesion type: unspecified vessel or lesion type [place] vs. transplanted heart: cahto heart Elevated troponin R79.89 Aortic stenosis I35.0 Hypertension I10 Dyslipidemia E78.5 (3) CAD (coronary artery disease) Associated angina: unspecified whether angina present Coronary Disease- Associated Artery/Lesion type: unspecified vessel or lesion type [place] vs. transplanted heart: cahto heart Qualified Code(s): I25.10 - Atherosclerotic heart disease of cahto coronary artery without angina pectoris
[2025-07-22 10:55] VITALS: RESP 22; O2SAT 91
--- NOTE | 2025-07-22 11:28 | Hospitalist Progress Note ---
Date of Service July 22, 2025 Assessment & Plan (1) Exertional chest pain: (2) S/P coronary artery stent placement: (3) Elevated troponin: (4) Aortic stenosis: (5) Hypertension: (6) Type 2 diabetes mellitus: (7) Dyslipidemia: (8) Interstitial lung disease: (9) Barretts esophagus: (10) Chronic back pain: Plan 84 year old male with PMH significant for dyslipidemia, type 2 diabetes, interstitial lung disease, ACE, hypertension, atherosclerosis of aorta, CAD, Celiac disease, Nash's esophagus, BPH, lumbar DDD, and chronic back pain who presents to the ED on 07/19/2025 with chest pain. Exertional chest pain Elevated troponin Patient presenting with two episodes of exertional chest pain with SOB requiring x2 doses of nitro at home Likely stable angina in setting of chronic exertional chest pain with SOB typically relieved by rest and rare nitro use Currently pain free EKG unremarkable Initial troponin 28 with repeat 44 with with elevation to elevation to 58.2 and then improved to 52.1 Appreciate cardiology input and possible cardiac cath today or tomorrow Will continue current medications including IV heparin Status post cardiac cathshowed severe multivessel CAD with 80 to 95% proximal circumflex blockage and 95% calcified mid LAD and subtotal distal LAD occlusion with collaterals to the apical vessels. Widely patent proximal and distal RCA stents. 50 to 60% distal RCA stenosis at bifurcation with PDA/RPAV Status post successful coronary stenting proximal circumflex, angioplasty to the mid left anterior descending (limited by heavy calcification) on 07/21/2025 Remains stable and has been feeling better since the procedure Denies any cardiac symptoms Will need to continue dual antiplatelet for 1 year He will be discharged home this afternoon Severe multivessel CAD s/p stent x2 (2023) s/p cardiac cath in December [address] Amador revealing severe multivessel CAD (70% proximal to mid RCA, 95% distal RCA, 80% proximal circumflex, 70% distal circumflex, 80-90% calcified mid LAD, subtotal distal LAD occlusion with collaterals to apical vessel) with PCI of RCA with x2 HECTOR Following with [facility] Cardiology last seen November 2024 Continue baby aspirin and Plavix Intolerant of Imdur and Ranexa Update LOLI - last in November 2023 revealed EF 65-70%, mild LVH, mild aortic stenosis with trace regurg, mild MR Cardiac cath as above with recommendation Hypertension Continue lisinopril Type 2 diabetes Hold home metformin BSG ACHS and SSI while inpatient Dyslipidemia Takes Zetia and red yeast rice Does not tolerate statins Continue Zetia Nash's esophagus Continue pantoprazole BPH Continue finasteride Chronic back pain s/p multiple back surgeries, spinal stimulator, nerve ablations Takes hydrocodone-tylenol and gabapentin for chronic back pain Continue gabapentin ACE Not on CPAP DVT Prophylaxis: SCDs for now Code Status: DNR/DNI - As per discussion at bedside with the patient. PCP: Manav De La Vega Disposition: admit to tele Admission and Anticipated Discharge Date Admission Date: July 19, 2025 Subjective 07/21/2025 The patient was seen and examined in telemetry unit He has had cardiac cath yesterday and showed significant CAD and he will have stent placement today Denies any symptoms at rest 07/22/2025 The patient was seen and examined in telemetryUnit He has been stable following the cardiac procedure He will be discharged home this afternoon Review of Systems Review of Systems: All systems reviewed and are unremarkable except as noted below Physical Exam Physical Exam: Lying in bed without any acute distress Constitutional: well developed, well nourished, + ill appearing and average body habitus Eyes: PERRL, conjunctivae normal, anicteric sclerae ENMT: external ear and nose normal, oropharynx normal Neck: trachea midline, no thyromegaly Respiratory: no respiratory distress Auscultation: lungs clear to auscultation bilaterally Cardiovascular: Rate/Rhythm: regular rate and regular rhythm; not tachycardic Heart Sounds: normal S1, normal S2 and + murmur (2/6 ESM over precordium) Extremities: no edema Gastrointestinal (Abdomen): Inspection/Auscultation: normal bowel sounds; a bdomen not distended Percussion/Palpation: abdomen soft; abdomen nontender Neurologic: normal touch/pain/proprioception and moves all extremities; no focal motor deficits Psychiatric: A+Ox3, euthymic affect Lymphatic: no cervical or axillary lymphadenopathy Results & Data Results & Data Vital Signs (Past 12 Hours) Vital Signs Temp Pulse Pulse Resp BP BP Pulse Ox 07/22/25 10:54 36.6 C 61 22 93/54 L 91 07/22/25 09:52 58 L 07/22/25 08:05 36.6 C 57 L 23 93/54 L 93 07/22/25 03:45 36.4 C L 48 L 18 100/61 96 07/21/25 23:47 36.5 C 56 L 16 110/64 95 O2 Del Method 07/22/25 10:54 Room Air 07/22/25 09:52 07/22/25 08:05 Room Air 07/22/25 03:45 Room Air 07/21/25 23:47 Room Air Laboratory Results Short CBC 07/22/25 Range/Units 05:57 WBC 8.08 (4.8-10.8) K/ul Hgb 12.1 L (14.0-18.0) g/dl Hct 36.1 L (42.0-52.0) % Plt Count 306 (130-400) K/uL BMP 07/22/25 05:57 Sodium 136 Potassium 4.3 Chloride 105 Carbon Dioxide 22 BUN 25 H Creatinine 1.09 Glucose 122 H Calcium 8.8 Medications Administered Current Inpatient Medications Acetaminophen (Acetaminophen 325 Mg Tab) 650 mg PO Q4H PRN PRN Reason: mild-mod (1-6) Pain or Fever Stop: 08/18/25 18:24 Hydrocodone Bitart/Acetaminophen (Hydrocodone/Acetaminophen 10/325 Tab) 1 tab PO Q6H PRN PRN Reason: Severe Pain (Scale Score 7-10) Stop: 08/03/25 09:25 Last Admin: 07/22/25 06:06 Dose: 1 tab Aspirin (Aspirin 81 Mg Ectab) 81 mg PO DAILY [facility] Stop: 08/19/25 08:59 Last Admin: 07/22/25 08:41 Dose: 81 mg Clopidogrel Bisulfate (Clopidogrel Bisulfate 75 Mg Tab) 75 mg PO QAM LEVAR Stop: 08/19/25 08:59 Last Admin: 07/22/25 08:42 Dose: 75 mg Cyanocobalamin (Cyanocobalamin (B-12) 100 Mcg Tablet) 100 mcg PO DAILY LEVAR Stop: 08/19/25 08:59 Last Admin: 07/22/25 08:42 Dose: 100 mcg Dextrose (Dextrose 50% 50 Ml Syringe) 25 - 50 ml IV UD PRN; Protocol PRN Reason: Hypoglycemia Protocol Stop: 08/18/25 18:24 Ezetimibe (Ezetimibe 10 Mg Tab) 10 mg PO DAILY [facility] Stop: 08/19/25 08:59 Last Admin: 07/22/25 08:42 Dose: 10 mg Finasteride (Finasteride 5 Mg Tab) 5 mg PO DAILY LEVAR Stop: 08/19/25 08:59 Last Admin: 07/22/25 08:42 Dose: 5 mg Gabapentin (Gabapentin 600 Mg Tab) 600 mg PO BID@0800,2100 LEVAR Stop: 08/18/25 20:59 Last Admin: 07/22/25 08:42 Dose: 600 mg Gabapentin (Gabapentin 300 Mg Cap) 900 mg PO DAILY@1400 LEVAR Stop: 08/19/25 13:59 Last Admin: 07/21/25 16:01 Dose: 900 mg Glucagon (Glucagon For Inj 1 Mg Vial) 1 mg SQ UD PRN; Protocol PRN Reason: Hypoglycemia Protocol Stop: 08/18/25 18:24 Glucose (Glucose 40% Gel 15 Gm Tube) 15 - 30 gm PO UD PRN; Protocol PRN Reason: Hypoglycemia Protocol Stop: 08/18/25 18:24 Glucose (Glucose 10 Tab/Tube) 4 - 8 tab PO UD PRN; Protocol PRN Reason: Hypoglycemia Protocol Stop: 08/18/25 18:24 Insulin Aspart (Insulin Aspart Per Unit Charge) 0 units SC ACHS LEVAR Stop: 08/20/25 16:29 Last Admin: 07/22/25 08:42 Dose: 1 units Lisinopril (Lisinopril 5 Mg Tab) 5 mg PO QAM LEVAR Stop: 08/19/25 08:59 Last Admin: 07/22/25 08:42 Dose: 5 mg Miscellaneous (Carbohydrates For Hypoglycemia ) 15 - 30 gm PO UD PRN PRN Reason: Hypoglycemia Protocol Stop: 08/18/25 18:24 Multivitamins (Multivitamin Tab) 1 tab PO DAILY LEVAR Stop: 08/19/25 08:59 Last Admin: 07/22/25 08:42 Dose: 1 tab Nitroglycerin (Nitroglycerin Sl 0.4 Mg/Tab Tab) 0.4 mg SL Q5M PRN PRN Reason: Chest Pain Stop: 08/18/25 18:24 Ondansetron HCl (Ondansetron Inj 2 Mg/Ml 2 Ml Vial) 4 mg IV Q6H PRN PRN Reason: Nausea Stop: 08/18/25 18:24 Last Admin: 07/21/25 09:09 Dose: 4 mg Pantoprazole Sodium (Pantoprazole 40 Mg Tab) 40 mg PO DAILY LEVAR Stop: 08/19/25 08:59 Last Admin: 07/22/25 08:41 Dose: 40 mg Polyethylene Glycol (Polyethylene (Miralax) 17 Gm Pack) 17 gm PO DAILY PRN PRN Reason: Constipation Stop: 08/18/25 18:24
--- NOTE | 2025-07-22 12:33 | Electrocardiogram Report ---
Test Reason : Blood Pressure : */* mmHG Vent. Rate : 49 BPM Atrial Rate : 49 BPM P-R Int : 180 ms QRS Dur : 80 ms QT Int : 404 ms P-R-T Axes : 60 -7 23 degrees QTcB Int : 364 ms Sinus bradycardia Inferior infarct , age undetermined Abnormal ECG When compared with ECG of 21-Jul-2025 06:06, No significant change was found Confirmed by Angel Kirby ([id number]) on 07/22/2025 12:33:03 PM Referred By: REFERRED SELF Confirmed By: Angel Kirby
[2025-07-22 12:58] VITALS: BP 100/61
[2025-07-22 13:52] VITALS: PULSE 70
--- NOTE | 2025-07-22 16:09 | Discharge Summary ---
Date of Service July 22, 2025 Admission HPI Per Admitting Provider 84 year old male with PMH significant for dyslipidemia, type 2 diabetes, interstitial lung disease, ACE, hypertension, atherosclerosis of aorta, CAD, Celiac disease, Nash's esophagus, BPH, lumbar DDD, and chronic back pain who presents to the ED on 07/19/2025 with chest pain. Patient reports that he experienced two episodes of chest pain with exertion. The first happened after walking to his garage where he felt an intense heaviness and pressure on his chest with significant SOB. He took nitroglycerin and the pain resolved. Then he started blowing leaves with a handheld leaf blower and developed the same sym ptoms causing him to have to stop activity. He took another dose of nitroglycerin and presented to the ED for evaluation. He denies diaphoresis, N/V as well as fevers, chills, cough, congestion, abdominal pain, dysuria, diarrhea. Patient tells me he has chronic chest pain with exertion that occurs a couple times per week for the last six months. He usually can stop his exertional activity and the chest pain and SOB will resolve. Rarely, twice in the last six months, he takes one nitroglycerin and the pain resolves completely. Today was the first time since his last cardiac cath in December 2023 that he had to take two doses of nitroglycerin, which is why he is seeking evaluation. He is compliant with his medications including cardiac meds. Notes he does not tolerate statins or Imdur or Ranexa. Follows with Dr. Turcios of [facility]. Admission Exam Per Admitting Provider Physical Exam: General/Psych: WD/WN, sitting up in bed, NAD, conversing easily, euthymic affect Head: normocephalic, atraumatic Eyes: normal inspection, PERRL, conjunctivae pink ENT: external ear and nose normal, oropharynx normal Neck: normal visual inspection, trachea midline, no thyromegaly Respiratory: normal respiratory effort, lungs course with crackles in the bilateral bases, no accessory muscle use Cardiovascular: regular rate and rhythm, +murmur Extremities: no cyanosis or clubbing, normal peripheral pulses, no BLE edema Abdomen/GI: normal bowel sounds, soft, nontender Neurologic/MSK: A+Ox3, motor strength 5/5, moves all extremities Skin: no rashes, normal color, warm and dry Principal Diagnosis CAD status post cardiac cath with stent placement as mentioned, type 2 diabetes, chronic back pain, hypertension Discharge Exam Lying in bed without any acute distress Constitutional well developed, well nourished, + ill appearing and average body habitus Eyes PERRL, conjunctivae normal, anicteric sclerae ENMT external ear and nose normal, oropharynx normal Neck trachea midline, no thyromegaly Respiratory no respiratory distress Auscultation: lungs clear to auscultation bilaterally Cardiovascular Rate/Rhythm: regular rate and regular rhythm; not tachycardic Heart Sounds: normal S1, normal S2 and + murmur (2/6 ESM over precordium) Extremities: no edema Gastrointestinal (Abdomen) Inspection/Auscultation: normal bowel sounds; abdomen not distended Percussion/Palpation: abdomen soft; abdomen nontender Neurologic normal touch/pain/proprioception and moves all extremities; no focal motor deficits Psychiatric A+Ox3, euthymic affect Lymphatic no cervical or axillary lymphadenopathy Discharge Data Allergies Allergy/AdvReac Type Severity Reaction Status Date / Time gluten Allergy Intermediate BREAK OUT Verified 07/19/25 15:51 IN BLISTERS iodine Allergy Intermediate ITCHY. Verified 07/19/25 15:51 SAME REACTION GLUTEN Penicillins Allergy Intermediate RASH Verified 07/19/25 15:51 meloxicam AdvReac Severe RENAL Verified 07/19/25 15:51 COMPLICATIONS atorvastatin [From Lipitor] AdvReac Intermediate Muscle Pain Verified 07/19/25 15:51 tramadol AdvReac Intermediate BAD Verified 07/19/25 15:51 STOMACH PROBLEMS codeine AdvReac Mild itching Verified 07/19/25 15:51 Consultations 07/19/25 15:58 ED Decision to Admit Stat 07/19/25 18:25 Consult Cardiology Routine Procedures Performed Operation Date: 07/21/25 14:00 Actual Procedures p Cineradiography w/Routine Exam - Marino Amador MD p Drug Eluting Stent SGl Vessel - Marino Amador MD s Perc Garcia Coronary Lithotripsy - Marino Amador MD Ordered Studies 07/20/25 10:02 CL Cath Imgs for PACS use only Stat 07/21/25 08:09 CL Cath Imgs for PACS use only Routine Hospital Course (1) Exertional chest pain: (2) S/P coronary artery stent placement: (3) Elevated troponin: (4) Aortic stenosis: (5) Hypertension: (6) Type 2 diabetes mellitus: (7) Dyslipidemia: (8) Interstitial lung disease: (9) Barretts esophagus: (10) Chronic back pain: Plan 84 year old male with PMH significant for dyslipidemia, type 2 diabetes, interstitial lung disease, ACE, hypertension, atherosclerosis of aorta, CAD, Celiac disease, Nash's esophagus, BPH, lumbar DDD, and chronic back pain who presents to the ED on 07/19/2025 with chest pain. Exertional chest pain Elevated troponin Patient presenting with two episodes of exertional chest pain with SOB requiring x2 doses of nitro at home Likely stable angina in setting of chronic exertional chest pain with SOB typically relieved by rest and rare nitro use Currently pain free EKG unremarkable Initial troponin 28 with repeat 44 with with elevation to elevation to 58.2 and then improved to 52.1 Appreciate cardiology input and possible cardiac cath today or tomorrow Will continue current medications including IV heparin Status post cardiac cathshowed severe multivessel CAD with 80 to 95% proximal circumflex blockage and 95% calcified mid LAD and subtotal distal LAD occlusion with collaterals to the apical vessels. Widely patent proximal and distal RCA stents. 50 to 60% distal RCA stenosis at bifurcation with PDA/RPAV Status post successful coronary stenting proximal circumflex, angioplasty to the mid left anterior descending (limited by heavy calcification) on 07/21/2025 Remains stable and has been feeling better since the procedure Denies any cardiac symptoms Will need to continue dual antiplatelet for 1 year He will be discharged home this afternoon Severe multivessel CAD s/p stent x2 (2023) s/p cardiac cath in December [address] Amador revealing severe multivessel CAD (70% proximal to mid RCA, 95% distal RCA, 80% proximal circumflex, 70% distal circumflex, 80-90% calcified mid LAD, subtotal distal LAD occlusion with collaterals to apical vessel) with PCI of RCA with x2 HECTOR Following with [facility]iology last seen November 2024 Continue baby aspirin and Plavix Intolerant of Imdur and Ranexa Update LOLI - last in November 2023 revealed EF 65-70%, mild LVH, mild aortic stenosis with trace regurg, mild MR Cardiac cath as above with recommendation Hypertension Continue lisinopril Type 2 diabetes Hold home metformin BSG ACHS and SSI while inpatient Dyslipidemia Takes Zetia and red yeast rice Does not tolerate statins Continue Zetia Nash's esophagus Continue pantoprazole BPH Continue finasteride Chronic back pain s/p multiple back surgeries, spinal stimulator, nerve ablations Takes hydrocodone-tylenol and gabapentin for chronic back pain Continue gabapentin ACE Not on CPAP DVT Prophylaxis: SCDs for now Code Status: DNR/DNI - As per discussion at bedside with the patient. PCP: Manav De La Vega Disposition: admit to tele Total Time Total Time Spent Total Time Spent (In Minutes): 35 Minutes Discharge Plan Discharge Items Patient Disposition: Home - Self-Care Reason For Visit: CHEST PAIN Discharge Diagnosis: CAD status post cardiac cath with stent placement as mentioned, type 2 diabetes, chronic back pain, hypertension Condition on Discharge: Fair Activity: Resume your previous activity Non-emergency contact: Primary Care Provider Call non-emergency contact if: you have any medication questions and your symptoms worsen Follow-up/Referrals: Manav De La Vega DO [Primary Care Provider] - (Date & Time 07/28/2025 9:00 AM Provider: Manav De La Vega DO [facility] ) Diet: Carb Consistent or DM2 and Heart Healthy Addtl Attending Provider Instructions: Please take precautions to avoid falls Please take medications as advised- we will need to continue aspirin and Plavix uninterrupted for minimum of 1 year Please keep appointment with the healthcare providers Pending Studies at Discharge: No Stand-Alone Forms: My [facility] [employer] [place], Smoking Cessation Medications and DC Order Prescriptions: Continued hydrocodone-acetaminophen 10-325 mg tablet 1 tab PO Q6H PRN (Reason: Severe Pain (Scale Score 7-10)) ezetimibe [Zetia] 10 mg tablet 10 mg PO DAILY Qty: 90 3RF gabapentin 600 mg tablet See Rx Instructions .ROUTE .COMPLEX Rx Instructions: 600 mg in AM, 900mg q afternoon, 600mg in PM pantoprazole 40 mg tablet,delayed release (DR/EC) 40 mg PO DAILY finasteride 5 mg tablet 5 mg PO DAILY nitroglycerin 0.4 mg tablet, sublingual 0.4 mg SL Q5M PRN (Reason: chest pain) Qty: 25 5RF clopidogrel 75 mg tablet 75 mg PO QAM Qty: 90 3RF cyanocobalamin (vitamin B-12) [Vitamin B-12] 100 mcg Tablet 100 mcg PO DAILY aspirin 81 mg Tablet,Delayed Release (Dr/Ec) 81 mg PO DAILY red yeast rice 600 mg Tablet 600 mg PO BID metformin 500 mg tablet extended release 24 hr 500 mg PO BID Rx Instructions: Take with meals ondansetron HCl 4 mg tablet 4 mg PO Q6 PRN (Reason: [place]) multivitamin Tablet 1 tab PO DAILY lisinopril 5 mg tablet 5 mg PO QAM Discharge Orders: Discharge Order (Routine); Ordered 07/22/25 Ordered By: Georgina Marshall Admission Data Admit Date/Time: 07/19/25 16:06 Attending Provider: Georgina Marshall Admit Provider: Dinesh Luevano Primary Care Provider: Manav De La Vega Other Providers: Dinesh Luevano; Haroon Pacheco Other Interventions: Discharge Summary Assessment (RN) Last Done: 07/22/25 12:57
== END 2025-07-22 15:00 | disposition home or self-care (01) | DRG 322 ==
LOC: ED 12:19 → 2E 16:06 → SUATTDRO 16:06 → 2E 18:11